=== PATIENT | male | born 1965 | race Caucasian/White ===

== ENCOUNTER → 2017-09-27 07:34 | Outpatient (CLI) | payer OTHER, SELFPAY ==
--- NOTE | 2017-09-27 07:00 | PET_ITS ---
EXAMINATION: FDG PET CT INDICATIONS: A 52-year-old male with reported history of pulmonary nodularity, mediastinal, thoracic perihilar adenopathy. COMPARISON EXAMINATION: CT of the chest report dated 09/13/17, CT of the abdomen and pelvis report dated 08/30/17. INDEX LESION SIZE SUV INTERPRETATION Multifocal superior-subcarinal mediastinum, bilateral thoracic perihilum 29.9 mm largest (frame 221) 11.4 (max) Fulfills quantitative criteria for viable neoplasm Mid abdominal retroperitoneum, aliza hepatis soft tissue adenopathy 14.2 mm largest (frame 166) 7.6 (max) Fulfills quantitative criteria for viable neoplasm Right supraclavicular region-right anterior neck 14.3 mm (frame 249) 5.5 Fulfills quantitative criteria for viable neoplasm TECHNIQUE: Following the intravenous administration of 13.5 mCi of F-18 deoxyglucose via the right hand, multiplanar image acquisitions of the neck, chest, abdomen and pelvis to level of mid thigh, obtained at one hour post radiopharmaceutical administration contemporaneously interpreted with the current CT of the neck, chest, abdomen and pelvis to level of mid thigh, dated 09/27/[address] of the chest report dated 09/13/17, CT of the abdomen and pelvis report dated 08/30/17 reveal: SERUM GLUCOSE LEVEL: 145 mg/dl. HEIGHT: 66 inches. WEIGHT: 169 lbs. FINDINGS: 1. Multifocal increased glucose concentration extends from the superior to subcarinal mediastinum, aorticopulmonary window and right-left thoracic perihilar regions generating a calculated maximum standard uptake value of 11.4. The maximal axial diameter of the largest individual hypermetabolic soft tissue density on review of CT of the thorax dated 09/27/17 is approximately 29.9 mm (transverse). Meticulous attention paid to the co-registered data sets of the thorax demonstrate apparent sparing of the mid-distal esophagus. 2. Increased glucose concentration is observed in the left mid abdominal retroperitoneum, periaortic in location corresponding to a soft tissue lymph node and right upper abdomen, aliza hepatis. The calculated maximum standard uptake value is 7.6. The maximal axial diameter of the corresponding hypermetabolic soft tissue density on review of CT of the abdomen dated 09/27/17 is 15.2 mm (AP). 3. An increase in glucose metabolism is demonstrated in the right anterior neck involving level IV, supraclavicular region. The calculated maximum standard uptake value is 5.5. The maximal axial diameter of the corresponding hypermetabolic soft tissue density on review of CT of the thorax dated 09/27/17 is 14.3 mm (AP). 4. Normal physiologic distribution of the radiopharmaceutical is apparent in the hepatic (2.6) and splenic parenchyma, both renal units, bladder and visualized intestinal tract. There is symmetric and preserved glucose metabolism noted in the visualized portion of the frontal, occipital, temporal and parietal lobes of the cerebral cortex, as well as cerebral hemispheres and basal ganglia. Diffuse intestinal tract activity is noted throughout all four quadrants of the abdominal-pelvic retroperitoneum, mesentery consistent with normal physiologic distribution of the radiopharmaceutical. Prominent glucose metabolism is defined in the bilateral lower hemipelvic mesentery contiguous to the distal ureters most consistent with physiologic distribution of the radiopharmaceutical. Pertinent CT findings are as follows. CHEST: There are no parenchymal densities-nodules demonstrated in the right-left hemithorax manifesting quantitatively significant, discernible increased glucose metabolism. Right-left axillary soft tissue densities with fatty hilus formation are non-glucose avid. ABDOMEN AND PELVIS: The gallbladder is surgically absent. Pelvic arterial calcification is observed. Fat-containing bilateral inguinal hernias are noted. Right-left inguinal soft tissue densities are ametabolic. Calcification is defined in the left kidney. Colonic diverticulosis is demonstrated. SKELETAL: Degenerative changes defined in the cervical, thoracic and lumbar spine demonstrate no evidence for glucose hypermetabolism. PET/PET/CT Tumor Base -Thigh Init IMPRESSION: 1. Increased glucose metabolism multifocally apparent in the superior-subcarinal mediastinum, bilateral thoracic perihilum fulfills quantitative criteria for viable neoplasm. Histopathologic investigation is recommended. (VanWu et al, Journal of Clinical Oncology 16:2142, 1998. Monet et al, Annals of Internal Medicine, 138:724, 2003). 2. Enhanced glucose concentration observed in the left mid abdominal retroperitoneum and right upper abdomen, aliaz hepatis corresponding to soft tissue lymph nodes, lymphadenopathy fulfills quantitative criteria for viable neoplasm. 3. The increase in glucose concentration visualized in the right anterior neck, supraclavicular region fulfills quantitative criteria for viable neoplasm. Electronic Signature Carlos Yadav D.O. Electronically Signed: Carlos Yadav DO at 22:59 EST Tel , Service support ,
== END ==
PROVIDERS: Family Provider Nurse Practitioner; PCP Nurse Practitioner; Visit Provider Nurse Practitioner Gerontology
DX: R91.8 Other nonspecific abnormal finding of lung field (principal)
CPT/HCPCS: 78815; 99211; A9552; A4216; G0463

== ENCOUNTER → 2017-09-27 17:11 | Outpatient (CLI) | payer OTHER, SELFPAY ==
--- NOTE | 2017-09-27 | CYSPIN_PTH ---
PATIENT: YOLY SLAUGHTER LOC: [facility] U#:[id number] AGE/SX: 59/M ROOM: RE09/27/[address]: Dr. Theodore Harris MD : 1965 BED: DIS: SPEC #: [id number] RECD: 09/27/17 15:30 STATUS: ULICES RENE #: [id number] YUMI: 09/27/17 00:[address]: Theodore Harris DEPT: CYTOLOGY RECD BY: Michael Arita ENTERED: 09/28/17 09:17 SP TYPE: CYSPIN FL OTHR DR: Louann Alejandre, INCLUSION MANAGER-C Tissues: Urine Procedures: Pap Stain (control) Special Stain Group II Cytospin Fluid HEADER OPERATION: Not noted PRE-OP DIAGNOSIS: Hematuria TISSUE SUBMITTED: Urine for cytology DIAGNOSIS CYTOLOGY Urine for cytology (cytospin): Negative for malignant cells. Acute inflammation. SJ:efra 09/29/17 CYTOLOGY STUDY Slides are reviewed. The specimen consists of neutrophils, red blood cells and a few benign urothelial cells. CYTOLOGY GROSS Received is 70 ml of clear gold fluid labeled with the patient's name and and designated per the requisition as urine. Submitted for cytology preparation. 09/28/17 TC:2 CPT: 79117
[2017-09-27 17:13] LABS: Cytology, Body Fluid / CSF SEE PATHOLOGY REPORT
== END ==
PROVIDERS: Family Provider Nurse Practitioner; PCP Nurse Practitioner; Visit Provider Urology
DX: R31.9 Hematuria, unspecified (principal)
CPT/HCPCS: 88108; 88313

== ENCOUNTER 2017-10-29 11:26 | Day surgery (SDC) | payer OTHER, SELFPAY ==
[2017-10-26 13:19] LABS: Absolute Lymphocyte Count 1.28 X10^3/ul (0.83-4.51); Absolute Neutrophil Count 3.3 X10^3/uL (2.0-7.7); Basophil# 0.02 X10^3/uL; Basophil% 0.4 % (0-1); Eosinophil# 0.11 X10^3/uL; Eosinophils% 2.1 % (0-5); Hematocrit 46.1 % (40-54); Hemoglobin 15.7 g/dl (13.0-16.5); Lymphocyte # 1.28 X10^3/ul (4.0); Mean Corp Hgb Conc 34.1 g/gl (32-36); Mean Corpuscular Hgb 31.8 pg (27.0-32.0); Mean Corpuscular Volume 93.3 fL (80-94); Mean Platelet Vol. 11.4 fl (6.2-12.0); Monocyte# 0.58 X10^3/uL; Monocyte% 10.9 % (0-10); Neutrophil # 3.31 X10^3/uL (2.7-7.7); POSITIVE COUNT NO; POSITIVE DIFFERENTIAL NO; POSITIVE MORPHOLOGY NO; Platelet Count 194 K/mm3 (150-450); RBC Distribution Width CV 12.8 % (11.6-14.6); RBC Distribution Width SD 42.8 fl (35.1-43.9); Red Blood Count 4.94 M/mm3 (4.6-6.2); White Blood Count 5.3 K/mm3 (4.4-11.0)
[2017-10-26 13:29] LABS: Prothrombin Time (Protime)PT. 13.6 SECONDS (11.7-14.9)
[2017-10-26 13:30] LABS: Partial Thromboplast Time 31.7 Seconds (24.1-36.2)
--- NOTE | 2017-10-29 | ASPS_PTH ---
PATIENT: YOLY SLAUGHTER LOC: [facility] U#:[id number] AGE/SX: 52/M ROOM: RE10/29/[address]: Dr. Yaya Kaur DO : 1965 BED: DIS: 10/29/2017 SPEC #: [id number] RECD: 11/01/17 05:42 STATUS: ULICES RENE #: [id number] YUMI: 10/29/17 00:[address]: Yaya Kaur DEPT: CYTOLOGY RECD BY: Carlos Short ENTERED: 11/01/17 05:44 SP TYPE: ASPIRATION OTHR DR: Louann Alejandre, EMPLOYMENT CONSULTANT-C Tissues: A - Lung, NOS B - Lung, NOS C - Lung, NOS D - Lung, NOS E - Lung, NOS F - Lung, NOS G - Lung, NOS H - Lung, NOS I - Lung, NOS J - Lung, NOS K - Lung, NOS M - Lung, NOS N - Lung, NOS O - Lung, NOS P - Lung, NOS Q - Lung, NOS L - Lung, NOS Procedures: Special Stain Group II Special Stain Group I Surgery Specimen Level IV AFB Stain (control) GMS Stain (control) Diff Quik Stain (control) Cell Block Cytology Other HEADER OPERATION: Bronchoscopy with endoscopic endobronchial ultrasound (EBUS), transbronchial needle aspiration PRE-OP DIAGNOSIS: Mediastinal and hilar lymphadenopathy TISSUE SUBMITTED: A-F ? EBUS, FNA, site 7, G-H ? EBUS, FNA, site 4R, I & J ? EBUS, FNA, site?11L, K-M ? EBUS, FNA site?10R, N ? TBNA site 7, O - TBNA site 4R, P - TBNA site 11L, Q - TBNA site 10R DIAGNOSIS CYTOLOGY A. EBUS, FNA, site 7, aspiration #1: Adequate for evaluation. Negative for malignant cells or granulomas. Lymphocytes are present. B. EBUS, FNA, site 7, aspiration #2: Adequate for evaluation. Negative for malignant cells or granulomas. Lymphocytes and respiratory cells present. C. EBUS, FNA, site 7, aspiration #3: Only a few lymphocytes are present. Negative for malignant cells. D. EBUS, FNA, site 7, aspiration #4: Only a few lymphocytes are present. Negative for malignant cells. E. EBUS, FNA, site 7, aspiration #5: Adequate for evaluation. Negative for malignant cells or granulomas. Lymphocytes are present. F. EBUS, FNA, site 7, aspiration #6: Only a few lymphocytes are present. Negative for malignant cells. G. EBUS, FNA, site 4R, aspiration #7: Nondiagnostic specimen. Rare respiratory epithelial cells and lymphocytes are present. H. EBUS, FNA, site 4R, aspiration #8: Nondiagnostic specimen. Rare respiratory epithelial cells and lymphocytes are present. I. EBUS, FNA, site 11L, aspiration #9: Adequate for evaluation. Negative for malignant cells or granuloma. Respiratory epithelial cells and lymphocytes are present. J. EBUS, FNA, site 11L, aspiration #10: Nondiagnostic specimen. Rare respiratory epithelial cells and lymphocytes are present. K. EBUS, FNA, site 10R, aspiration #11: Nondiagnostic specimen. Rare respiratory epithelial cells and lymphocytes are present. L. EBUS, FNA, site 10R, aspiration #12: Nondiagnostic specimen. Rare lymphocytes are noted. M. EBUS, FNA, site 10R, aspiration #13: Nondiagnostic specimen. Respiratory epithelial cells and rare lymphocytes are noted. N. TBNA, site 7, fluid (cell block): Negative for malignant cells or lymphoma. Flow cytometry shows no evidence of B-cell or T-cell lymphoma. See cytology study. O. TBNA, site 4R, fluid (cell block): Negative for malignant cells. Flow cytometry shows no phenotypic evidence of lymphoma. See cytology study. P. TBNA, site 11L, fluid (cell block): Focal area suggestive of granuloma formation. Special stains for acid fast bacilli and fungi are negative for organisms; matched controls are appropriate. Flow cytometry shows no evidence of B-cell or T-cell lymphoma. See cytology study. Q. TBNA, site 10R, fluid (cell block): Negative for malignant cells. Flow cytometry shows no evidence of B-cell or T-cell lymphoma. See cytology study. SJ:efra 11/01/17 COMMENT The specimen is evaluated at the time of procedure by Dr. Contreras. Immediate evaluation: A. EBUS, FNA, site 7, aspiration #1: Negative for malignancy. Lymphocytes and blood present. B. EBUS, FNA, site 7, aspiration #2: Nondiagnostic. Reactive bronchial cells and blood. C. EBUS, FNA, site 7, aspiration #3: Nondiagnostic. No lymphocytes. Blood present. D. EBUS, FNA, site 7, aspiration #4: Nondiagnostic. No lymphocytes. Only blood present. E. EBUS, FNA, site 7, aspiration #5: Negative for malignancy. Few lymphocytes present. F. EBUS, FNA, site 7, aspiration #6: Nondiagnostic. No lymphocytes. Blood present. G. EBUS, FNA, site 4R, aspiration #7: Nondiagnostic. No lymphocytes. Blood present. H. EBUS, FNA, site 4R, aspiration #8: Nondiagnostic. No lymphocytes. Reactive bronchial cells I. EBUS, FNA, site 11L, aspiration #9: Nondiagnostic. Reactive bronchial and WBC from blood. J. EBUS, FNA, site 11L, aspiration #10: Nondiagnostic. No lymphocytes. Blood only. K. EBUS, FNA, site 10R, aspiration #11: Nondiagnostic. No lymphocytes. Few reactive bronchial cells. L. EBUS, FNA, site 10R, aspiration #12: Nondiagnostic. No lymphocytes. M. EBUS, FNA, site 10R, aspiration #13: Nondiagnostic. No lymphocytes. Blood. Case has been reviewed in consultation with Dr. Chatterjee who concurs with the above diagnosis. IDC:AM CYTOLOGY STUDY Slides are reviewed. N. The specimen consists only of a few small lymphocytes. O. The specimen only shows blood. P. The specimen consists of lymphocytes and focal area suggestive of granuloma formation. Q. The specimen predominantly consists of blood and one minute fragment of cartilage. CYTOLOGY GROSS A ? Received labeled with the patient?s name, and designated ?EBUS, FNA, site 7, aspiration #1.? The specimen consists of two smears submitted for immediate cytologic evaluation (wet read). B - Received labeled with the patient?s name, and designated ?EBUS, FNA, site 7, aspiration #2.? The specimen consists of two smears submitted for immediate cytologic evaluation (wet read). C - Received labeled with the patient?s name, and designated ?EBUS, FNA, site 7, aspiration #3.? The specimen consists of two smears submitted for immediate cytologic evaluation (wet read). D - Received labeled with the patient?s name, and designated ?EBUS, FNA, site 7, aspiration #4.? The specimen consists of two smears submitted for immediate cytologic evaluation (wet read). E - Received labeled with the patient?s name, and designated ?EBUS, FNA, site 7, aspiration #5.? The specimen consists of two smears submitted for immediate cytologic evaluation (wet read). F - Received labeled with the patient?s name, and designated ?EBUS, FNA, site 7, aspiration #6.? The specimen consists of two smears submitted for immediate cytologic evaluation (wet read). G - Received labeled with the patient?s name, and designated ?EBUS, FNA, site 4R, aspiration #7.? The specimen consists of two smears submitted for immediate cytologic evaluation (wet read). H - Received labeled with the patient?s name, and designated ?EBUS, FNA, site 4R, aspiration #8.? The specimen consists of two smears submitted for immediate cytologic evaluation (wet read). I - Received labeled with the patient?s name, and designated ?EBUS, FNA, site 11L, aspiration #9.? The specimen consists of two smears submitted for immediate cytologic evaluation (wet read). J - Received labeled with the patient?s name, and designated ?EBUS, FNA, site 11L, aspiration #10.? The specimen consists of two smears submitted for immediate cytologic evaluation (wet read). K - Received labeled with the patient?s name, and designated ?EBUS, FNA, site 10R, aspiration #11.? The specimen consists of two smears submitted for immediate cytologic evaluation (wet read). L - Received labeled with the patient?s name, and designated ?EBUS, FNA, site 10R, aspiration #12.? The specimen consists of two smears submitted for immediate cytologic evaluation (wet read). M - Received labeled with the patient?s name, and designated ?EBUS, FNA, site 10R, aspiration #13.? The specimen consists of two smears submitted for immediate cytologic evaluation (wet read). N ? Received in RPMI and labeled with the patient?s name, and designated ?TBNA, site 7.? Submitted for cytology preparation including cell block. A portion of the specimen is also submitted for flow cytometry. 0 - Received in RPMI and labeled with the patient?s name, and designated ?TBNA, site 4R.? Submitted for cytology preparation including cell block. A portion of the specimen is also submitted for flow cytometry. P - Received in RPMI and labeled with the patient?s name, and designated ?TBNA, site 11L.? Submitted for cytology preparation including cell block. A portion of the specimen is also submitted for flow cytometry. Q - Received in RPMI and labeled with the patient?s name, and designated ?TBNA, site 10R.? Submitted for cytology preparation including cell block. A portion of the specimen is also submitted for flow cytometry. / FA:efra 10/29/17 TC:5 CPT: 62454 x4, 18853 x4, 31078 x9, 40086 x4, 96212 x2
[2017-10-29 11:56] VITALS: BP 120/88; PULSE 72; RESP 16; TEMP 36.6; O2SAT 98; BMI 27.3
[2017-10-29 12:16] LABS: Bedside Glucose 140 mg/dL (70-110)
--- NOTE | 2017-10-29 13:40 | PCM.OP.BLANK ---
Operative Report Date of Procedure: 10/29/17 BRONCHOSCOPY (EBUS) PROCEDURE REPORT DATE OF SERVICE: October 29, 2017 BRIEF HISTORY: The patient is a 52-year-old male who follows with Dr. Fallon on an outpatient basis who is referred to co for evaluation of mediastinal and hilar lymphadenopathy. Contrasted chest CT completed in August 2017 revealed multiple bilateral pulmonary nodules and extensive mediastinal and hilar lymphadenopathy. Subsequent PET scan was performed and revealed hypermetabolic areas in the aforementioned regions. Therefore, it was determined that the patient should undergo mediastinal lymph node sampling for evaluation of potential malignancy, granulomatous disease and/or occult infectious process. PROCEDURE: Bronchoscopy with endoscopic endobronchial ultrasound (EBUS), transbronchial needle aspiration INDICATION: Mediastinal and hilar lymphadenopathy PHYSICIAN: Yaya Kaur DO ANESTHETIC: This procedure was completed under the supervision of anesthesia. Please refer to their documentation accordingly. COMPLICATIONS: No immediate complications noted. DESCRIPTION OF PROCEDURE: A history and physical has been performed. Please see outpatient pulmonary clinic note. The patient's medications and allergies have been reviewed. The risks and benefits of the procedure and sedation options and risks were discussed with the patient at length. All questions were answered and informed consent was obtained. The patient's identification and proposed procedure were verified prior to the procedure by the physician. ASA GRADE ASSESSMENT: II After obtaining informed consent, the bronchoscope was introduced through the mouth, via laryngeal mask airway and advanced to the tracheal bronchial tree bilaterally. The procedure was accomplished without difficulty. The patient tolerated the procedure well. FINDINGS: The visualized oropharynx appears normal. The vocal cords appeared normal and moved normally with breathing. The subglottic space is normal. The trachea was of normal caliber. The maureen is sharp. The tracheal bronchial trees of the left and right lungs were examined to at least the first subsegmental level. Bronchial mucosa and anatomy was noted to be normal. Once the airway inspection was completed, the standard bronchoscope was withdrawn and a convex probe endobronchial ultrasound (EBUS) bronchoscope was inserted through the same route. The endobronchial ultrasound endoscope was then utilized to systematically examine the superior/inferior mediastinal and hilar lymph nodes to assist with fine-needle aspiration. In total, 13 transbronchial needle aspirations were completed at 4 different lymph node stations. Transbronchial needle aspiration was performed at lymph node station 7 (Subcarina) using an Olympus EBUS-TBNA 19-gauge needle and sent for routine cytology. The procedure was guided by ultrasound. 6 samples were obtained. Transbronchial needle aspiration was then performed at lymph node station 4R (Right Paratracheal) using an Olympus EBUS-TBNA 19-gauge needle and sent for routine cytology. The procedure was guided by ultrasound. 2 samples were obtained. Transbronchial needle aspiration was then performed at lymph node station 11L (Left Hilar) using an Olympus EBUS-TBNA 19-gauge needle and sent for routine cytology. The procedure was guided by ultrasound. 2 samples were obtained. Transbronchial needle aspiration was then performed at lymph node station 10R (Right Hilar) using an Olympus EBUS-TBNA 19-gauge needle and sent for routine cytology. The procedure was guided by ultrasound. 3 samples were obtained. Rapid on-site evaluation (CORRY): Preliminary cytology was inconclusive. Final pathology results are pending. Following this, the EBUS endoscope was subsequently withdrawn from the patient's airway through the LMA. A conventional bronchoscope was then reinserted into the patient's airway, at which time, any retained secretions and/or blood was cleared. The bronchoscope was then withdrawn without complication. The patient was then transferred to the PACU, where they recovered in the usual fashion. IMPRESSION: 1. Extensive mediastinal and hilar lymphadenopathy 2. Transbronchial needle aspiration was completed at lymph node station 7 (subcarinal), 4R (right paratracheal), 11L (left hilar), 10R (right hilar) 3. Samples will be sent for cytology, flow cytometry, AFB and cultures. RECOMMENDATIONS: 1. Await finalized pathology results 2. Follow up with the pulmonary medicine clinic as scheduled Code Visit 9xxxx: Other Procedure See Report
--- NOTE | 2017-10-29 13:45 | OP.PCM_ITS ---
Operative Report Date of Procedure: 10/29/17 BRONCHOSCOPY (EBUS) PROCEDURE REPORT DATE OF SERVICE: October 29, 2017 BRIEF HISTORY: The patient is a 52-year-old male who follows with Dr. Fallon on an outpatient basis who is referred to [place] for evaluation of mediastinal and hilar lymphadenopathy. Contrasted chest CT completed in August 2017 revealed multiple bilateral pulmonary nodules and extensive mediastinal and hilar lymphadenopathy. Subsequent PET scan was performed and revealed hypermetabolic areas in the aforementioned regions. Therefore, it was determined that the patient should undergo mediastinal lymph node sampling for evaluation of potential malignancy, granulomatous disease and/or occult infectious process. PROCEDURE: Bronchoscopy with endoscopic endobronchial ultrasound (EBUS), transbronchial needle aspiration INDICATION: Mediastinal and hilar lymphadenopathy PHYSICIAN: Yaya Kaur DO ANESTHETIC: This procedure was completed under the supervision of anesthesia. Please refer to their documentation accordingly. COMPLICATIONS: No immediate complications noted. DESCRIPTION OF PROCEDURE: A history and physical has been performed. Please see outpatient pulmonary clinic note. The patient's medications and allergies have been reviewed. The risks and benefits of the procedure and sedation options and risks were discussed with the patient at length. All questions were answered and informed consent was obtained. The patient's identification and proposed procedure were verified prior to the procedure by the physician. ASA GRADE ASSESSMENT: II After obtaining informed consent, the bronchoscope was introduced through the mouth, via laryngeal mask airway and advanced to the tracheal bronchial tree bilaterally. The procedure was accomplished without difficulty. The patient tolerated the procedure well. FINDINGS: The visualized oropharynx appears normal. The vocal cords appeared normal and moved normally with breathing. The subglottic space is normal. The trachea was of normal caliber. The maureen is sharp. The tracheal bronchial trees of the left and right lungs were examined to at least the first subsegmental level. Bronchial mucosa and anatomy was noted to be normal. Once the airway inspection was completed, the standard bronchoscope was withdrawn and a convex probe endobronchial ultrasound (EBUS) bronchoscope was inserted through the same route. The endobronchial ultrasound endoscope was then utilized to systematically examine the superior/inferior mediastinal and hilar lymph nodes to assist with fine-needle aspiration. In total, 13 transbronchial needle aspirations were completed at 4 different lymph node stations. Transbronchial needle aspiration was performed at lymph node station 7 ( Subcarina) using an Olympus EBUS-TBNA 19-gauge needle and sent for routine cytology. The procedure was guided by ultrasound. 6 samples were obtained. Transbronchial needle aspiration was then performed at lymph node station 4R ( Right Paratracheal) using an Olympus EBUS-TBNA 19-gauge needle and sent for routine cytology. The procedure was guided by ultrasound. 2 samples were obtained. Transbronchial needle aspiration was then performed at lymph node station 11L ( Left Hilar) using an Olympus EBUS-TBNA 19-gauge needle and sent for routine cytology. The procedure was guided by ultrasound. 2 samples were obtained. Transbronchial needle aspiration was then performed at lymph node station 10R ( Right Hilar) using an Olympus EBUS-TBNA 19-gauge needle and sent for routine cytology. The procedure was guided by ultrasound. 3 samples were obtained. Rapid on-site evaluation (CORRY): Preliminary cytology was inconclusive. Final pathology results are pending. Following this, the EBUS endoscope was subsequently withdrawn from the patient' s airway through the LMA. A conventional bronchoscope was then reinserted into the patient's airway, at which time, any retained secretions and/or blood was cleared. The bronchoscope was then withdrawn without complication. The patient was then transferred to the PACU, where they recovered in the usual fashion. IMPRESSION: 1. Extensive mediastinal and hilar lymphadenopathy 2. Transbronchial needle aspiration was completed at lymph node station 7 ( subcarinal), 4R (right paratracheal), 11L (left hilar), 10R (right hilar) 3. Samples will be sent for cytology, flow cytometry, AFB and cultures. RECOMMENDATIONS: 1. Await finalized pathology results 2. Follow up with the pulmonary medicine clinic as scheduled Code Visit 9xxxx: Other Procedure See Report
[2017-10-29 13:47] VITALS: BP 120/88; BP 144/91; PULSE 86; RESP 18; TEMP 36.2; O2SAT 98
[2017-10-29 14:00] VITALS: BP 120/88; BP 148/91; PULSE 74; RESP 16; O2SAT 97
[2017-10-29 14:15] VITALS: BP 120/88; BP 122/91; PULSE 71; RESP 16; O2SAT 95
[2017-10-29 14:25] VITALS: BP 120/88; BP 132/94; PULSE 75; RESP 16; TEMP 36.2; O2SAT 100
[2017-10-29 14:59] VITALS: BP 120/88
== END 2017-10-29 15:01 | disposition home or self-care (01) ==
LOC: EN 11:26 → AC 11:27
PROVIDERS: Internal Medicine Critical Care Medicine; Family Provider Nurse Practitioner; PCP Nurse Practitioner; Visit Provider Internal Medicine Critical Care Medicine
PROC: BB4BZZZ Ultrasonography of Pleura (ICD-10-PCS; CPT 31645; principal; 2017-10-29 12:00)
DX: R59.0 Localized enlarged lymph nodes (principal); E11.9 Type 2 diabetes mellitus without complications; Z87.19 Personal history of other diseases of the digestive system; Z87.442 Personal history of urinary calculi; Z87.438 Personal history of other diseases of male genital organs; Z86.39 Personal history of other endocrine, nutritional and metabolic disease; F12.90 Cannabis use, unspecified, uncomplicated; Z90.49 Acquired absence of other specified parts of digestive tract; Z79.84 Long term (current) use of oral hypoglycemic drugs
CPT/HCPCS: 31645; 31653; 36415; 82962; 85025; 85610; 85730; 88161; 88305; 88312; 88313; J3010; J7120; A4216; J2405

== ENCOUNTER → 2018-01-24 06:48 | Outpatient (CLI) | payer OTHER, SELFPAY ==
--- NOTE | 2018-01-24 06:48 | DT_ITS ---
This patient was seen during an EMR downtime January 24, 2018 - January 31, 2018. This patient may have a combination of paper and electronic documentation or all paper documentation. All documentation is viewable within the e-chart portion of [employer] for each patient visit.
--- NOTE | 2018-01-24 12:30 | CT_ITS ---
STUDY: CT CHEST WITH CONTRAST REASON FOR EXAM: Male, 52 years old. History of sarcoidosis and diabetes. RADIATION DOSAGE (If Supplied By Facility): CTDIvol = ( 14.15 ) mGy, DLP = ( 523.85 ) mGycm TECHNIQUE: Transaxial imaging was performed following intravenous administration of 100ml ml of Isovue 300 contrast material. Individualized dose optimization techniques were used for this CT. COMPARISON: 09/28/2017. FINDINGS: Again are multiple small pulmonary nodules bilaterally, the largest measures about 6 mm unchanged in size and number since previous examination. There is mild stranding/scarring in the right upper lobe. There is no demonstrated pleural abnormality. Normal heart and pericardium. Again are enlarged nodes in the aortopulmonic window, right paratracheal region, anterior mediastinum and subcarinal regions unchanged since the prior examination. Enlarged bilateral hilar nodes are again seen. Normal enhanced pulmonary arteries. Normal aorta arch and descending thoracic aorta. There are mild degenerative changes in the thoracic spine. There is no demonstrated abnormality of the visualized upper abdomen. CT/Chest WITH Contrast IMPRESSION: Multiple small pulmonary nodules unchanged in size or number since the previous examination. Persistent mediastinal and bilateral hilar adenopathy. Mild scarring in the right upper lobe. No new infiltrate is seen. Electronically Signed: Corey Fofana MD at 15:57 EDT Tel , Service support ,
== END ==
PROVIDERS: Family Provider Nurse Practitioner; PCP Nurse Practitioner; Visit Provider Internal Medicine Critical Care Medicine
DX: D86.0 Sarcoidosis of lung (principal); R59.0 Localized enlarged lymph nodes
CPT/HCPCS: 71260; Q9967

== ENCOUNTER → 2018-03-03 06:35 | Outpatient (CLI) | payer OTHER, SELFPAY ==
--- NOTE | 2018-03-03 11:30 | PFTCOMP ---
COMPLETE PULMONARY FUNCTION TEST INTERPRETATION Brief HPI: Patient is a 52 year old male, currently under the care of myself, who presents to [facility] for complete pulmonary function tests secondary to diagnosis of sarcoidosis. Respiratory therapist reports good effort and reproducible results. Interpretation: Forced expiration spirometry shows no large airways obstructive ventilatory defect with an FEV1 of 73% predicted. There is no significant bronchodilator response by ATS criteria. Spirograms are of good quality and plateau normally. The respiratory flow volume loop shows a normal pattern. Lung volumes by body plethysmography show a decreased total lung capacity at 4.81 L, 82% predicted. All other lung volumes are reduced symmetrically. Diffusion capacity by carbon monoxide is normal at 92% predicted. The airway resistance is elevated. No previous pulmonary function tests were available for review. Impression: Mild restrictive ventilatory defect with preserved diffusing capacity.
--- NOTE | 2018-03-03 11:33 | PFTCOMP_ITS ---
COMPLETE PULMONARY FUNCTION TEST INTERPRETATION Brief HPI: Patient is a 52 year old male, currently under the care of myself, who presents to [facility] for complete pulmonary function tests secondary to diagnosis of sarcoidosis. Respiratory therapist reports good effort and reproducible results. Interpretation: Forced expiration spirometry shows no large airways obstructive ventilatory defect with an FEV1 of 73% predicted. There is no significant bronchodilator response by ATS criteria. Spirograms are of good quality and plateau normally. The respiratory flow volume loop shows a normal pattern. Lung volumes by body plethysmography show a decreased total lung capacity at 4.81 L, 82% predicted. All other lung volumes are reduced symmetrically. Diffusion capacity by carbon monoxide is normal at 92% predicted. The airway resistance is elevated. No previous pulmonary function tests were available for review. Impression: Mild restrictive ventilatory defect with preserved diffusing capacity.
== END ==
PROVIDERS: Family Provider Nurse Practitioner; PCP Nurse Practitioner; Visit Provider Internal Medicine Critical Care Medicine
DX: D86.0 Sarcoidosis of lung (principal)
CPT/HCPCS: 94060; 94726; 94729

== ENCOUNTER → 2018-03-14 09:32 | Outpatient (CLI) | payer OTHER, SELFPAY ==
--- NOTE | 2018-03-14 09:37 | MRI_ITS ---
STUDY: MRI BRAIN WITH AND WITHOUT CONTRAST REASON FOR EXAM: Male, 52 years old. left hearing loss with bilat tinnitus Lt Tgt; Rt, no pain , no dizziness TECHNIQUE: Standardized multiplanar fat and water weighted pulse sequences were obtained. 7 ml of Gadavist contrast material was administered intravenously for the contrast portion of the examination. COMPARISON: None. FINDINGS: Normal size of the ventricles and extra-axial spaces for the patient's age. Normal white matter tracts of the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 brain. Normal bilateral basal ganglia. Normal thalami. There is no extra-axial fluid accumulation. Normal flow voids within the major intracranial circulation suggesting patency by spin echo criteria. Normal venous enhancement. There is enhancing right frontal extra-axial mass measures 3.3 x 3.5 x 1.2 cm is most likely a meningioma. 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 Normal sella turcica, pituitary gland, infundibular stalk, optic chiasm and hypothalamus. Normal tectal plate and pineal gland. Normal midbrain, poly and medulla. Normal cerebellum. Normal basal cisterns. Normal bilateral temporal bones. Normal bilateral internal auditory canals. No demonstrated orbital abnormality, within the constraints of a routine brain study. Normal visualized paranasal sinuses. Normal calvarium and skull base. Normal visualized soft tissue structures. Normal visualized upper cervical spine. MRI/Brain W/WO Contrast IMPRESSION: There is enhancing right frontal extra-axial mass measures 3.3 x 3.5 x 1.2 cm is most likely a meningioma. Electronically Signed: Rosario Choudhury MD at 14:01 EDT Tel , Service support ,
== END ==
PROVIDERS: Family Provider Nurse Practitioner; PCP Nurse Practitioner; Visit Provider Otolaryngology
DX: H91.92 Unspecified hearing loss, left ear (principal)
CPT/HCPCS: 70553; A9585

== ENCOUNTER 2018-06-03 17:11 | Emergency (ER) | payer OTHER, SELFPAY ==
[2018-06-03 17:19] VITALS: BP 137/101; PULSE 74; RESP 18; TEMP 37.1; O2SAT 99; BMI 26.7
--- NOTE | 2018-06-03 17:52 | RAD_ITS ---
STUDY: X-RAY - RIGHT HAND REASON FOR EXAM: Male, 52 years old. Bit by dog TECHNIQUE: 3 view(s) of the hand. COMPARISON: None. FINDINGS: There is joint space narrowing of the radiocarpal articulation consistent with degenerative arthrosis. Normal distal radioulnar joint. Normal visualized carpal bones. Normal carpal articulations Normal carpometacarpal articulation of the thumb. Normal second through fifth carpometacarpal joints. Normal metacarpi. Normal metacarpophalangeal joint of the thumb. Normal interphalangeal joint of the thumb. Normal proximal and distal phalanges of the thumb. Normal metacarpophalangeal joints of the second through fifth fingers. Normal proximal and distal interphalangeal joints of the second through fifth fingers. Normal phalanges of the second through fifth fingers. There is a 0.8 mm opacity projecting over the soft tissues of the distal fifth digit lateral to the distal phalanx. RAD/Hand Min 3 Views IMPRESSION: No acute osseous injury. Indeterminate 0.8 mm opacity projecting over the soft tissues of the distal fifth digit may reflect a retained foreign body. Electronically Signed: Carol Mott MD at 19:05 EDT Tel , Service support ,
[2018-06-03] MEDS: Amox/Clavulanate 875 MG Tablet PO (17:59)
--- NOTE | 2018-06-03 18:12 | RAD_ITS ---
STUDY: X-RAY - RIGHT RADIUS AND ULNA REASON FOR EXAM: Male, 52 years old. Multiple puncture wounds of the right forearm secondary to dog bite. TECHNIQUE: 2 view(s) of the forearm. COMPARISON: None. FINDINGS: Soft tissue injury without foreign body. Normal visualized radius. Normal visualized ulna. Normal wrist and elbow. RAD/Forearm 2 Views IMPRESSION: Soft tissue injury without foreign body, underlying bone or joint abnormality. Electronically Signed: Sarah Sow MD at 18:31 EDT , Service support ,
--- NOTE | 2018-06-03 19:18 | ED.DCSUM_ITS ---
- ER Visit Summary Date of Service: 06/03/18 Chief Complaint: Dog bite History of Present Illness: The patient is a 52 M who comes with multiple dog bites from his dog. Patient states he was cutting his dogs nails and the nail got caught in a clipper. The dog bit the patient on the right hand and right fo rearm. He is right-hand dominant. Physical Examination: Vital signs unremarkable. Patient sitting upright in bed no acute distress. Head neck examination grossly unremarkable other than a healing surgical wound to the right frontal scalp. Heart is regular rate and rhythm. Lung sounds are clear. Abdomen is soft nontender. Right forearm and hand reveals multiple abrasions and superficial lacerations. CT sheet for details. Patient has full strength and sensation with good range of motion. Test Results: Right forearm x-rays reveal soft tissue injury without bony injury. Right hand x-ray reveals no osseous injury. There is an indeterminate 0.8 mm opacity projecting over the distal phalanx soft tissues. This may be a foreign body. Emergency Department Course and Treatment: Wounds were cleansed and dressed. Patient is treated with Augmentin. I went back and reevaluated the distal phalanx of the fifth finger. Patient does have a 2 mm superficial lack near this area. I discussed with the patient opening this area to further explore. He would prefer to take the antibiotics and watch it. He will return if symptoms worsen. Treatment Plan: [] Disposition: Discharge Impression: Dog bites to right hand/forearm This note was generated with [employer] dictation software. It may contain incorrect words, spelling, and punctuation that were not noted in review of the chart prior to signing ED Disposition - Plan for ED Patient: Chief Complaint: Bite Referrals: Louann Alejandre, [employer] [Primary Care Provider] -
--- NOTE | 2018-06-03 19:18 | ED.DEP ---
ED Disposition - Plan for ED Patient: Disposition: Home or Assisted Living Chief Complaint: Bite Instructions: ED Bite Dog Prescriptions: Amox/Clavulanate Tablet [Augmentin Tablet] 875 mg PO Q12H #20 tablet Referrals: Louann Alejandre NP-C [Primary Care Provider] - 5-7 Days
[2018-06-03 19:24] VITALS: BP 156/85; PULSE 77; RESP 16; O2SAT 96
== END 2018-06-03 19:24 | disposition home or self-care (01) ==
PROVIDERS: Emergency Provider Emergency Medicine; Family Provider Nurse Practitioner; PCP Nurse Practitioner
DX: S60.571A Other superficial bite of hand of right hand, initial encounter (principal); S50.871A Other superficial bite of right forearm, initial encounter; K21.9 Gastro-esophageal reflux disease without esophagitis; E11.9 Type 2 diabetes mellitus without complications; D86.9 Sarcoidosis, unspecified; Z87.442 Personal history of urinary calculi; Z79.84 Long term (current) use of oral hypoglycemic drugs; Z79.891 Long term (current) use of opiate analgesic; Z79.899 Other long term (current) drug therapy; W54.0XXA Bitten by dog, initial encounter; Y93.89 Activity, other specified; Y92.009 Unspecified place in unspecified non-institutional (private) residence as the place of occurrence of the external cause; Y99.8 Other external cause status
CPT/HCPCS: 73090; 73130; 99283

== ENCOUNTER → 2018-06-06 10:40 | Outpatient (CLI) | payer OTHER, SELFPAY ==
--- NOTE | 2018-06-06 10:43 | RAD_ITS ---
STUDY: X-RAY - LUMBAR SPINE REASON FOR EXAM: Male, 52 years old. Low back pain with leg pain TECHNIQUE: 5 view(s) of the lumbar spine were obtained. COMPARISON: None FINDINGS: Normal lumbar lordosis. There is no substantial scoliosis. There is a normal alignment of the vertebrae. Normal vertebral bodies and endplates. Normal disc space heights. The soft tissue structures are unremarkable. RAD/L/S Spine Min 4 Views IMPRESSION: Normal x-ray examination of the lumbar spine. Electronically Signed: Jose Alcantara DO at 9:54 EDT Tel , Service support ,
== END ==
PROVIDERS: Family Provider Nurse Practitioner; PCP Nurse Practitioner; Referring Provider Nurse Practitioner Gerontology; Visit Provider Nurse Practitioner Gerontology
DX: M79.604 Pain in right leg (principal); M79.605 Pain in left leg
CPT/HCPCS: 72110

== ENCOUNTER → 2018-08-18 13:54 | Outpatient (CLI) | payer OTHER, SELFPAY ==
--- NOTE | 2018-08-18 14:05 | MRI_ITS ---
STUDY: MRI BRAIN WITH AND WITHOUT CONTRAST REASON FOR EXAM: Male, 52 years old. Brain tumor TECHNIQUE: Standardized multiplanar fat and water weighted pulse sequences were obtained. 8 ml of Gadavist contrast material was administered intravenously for the contrast portion of the examination. COMPARISON: 03/14/2018 FINDINGS: Normal size of the ventricles and extra-axial spaces for the patient's age. Normal white matter tracts of the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 brain. Normal bilateral basal ganglia. Normal thalami. Interval resection of right frontal meningioma. Normal flow voids within the major intracranial circulation suggesting patency by spin echo criteria. Prominent dural enhancement is noted anteriorly and laterally on the right which is likely reactive in nature. A trace subdural fluid collection is present anteriorly on the right that measures 3 mm without significant local mass effect. No associated visible restricted diffusion. This is most likely a postoperative effusion. 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 Normal sella turcica, pituitary gland, infundibular stalk, optic chiasm and hypothalamus. Normal tectal plate and pineal gland. Normal midbrain, poly and medulla. Normal cerebellum. Normal basal cisterns. Normal bilateral temporal bones. Normal bilateral internal auditory canals. Bilateral lens replacements. Normal visualized paranasal sinuses. Right frontal craniotomy. Normal visualized soft tissue structures. Normal visualized upper cervical spine. MRI/Brain W/WO Contrast IMPRESSION: Interval resection of right frontal meningioma. Reactive prominent right frontal dural enhancement. Small right frontal dural fluid collection without restricted diffusion, likely related to postoperative effusion. Short interval follow-up is recommended to ensure stability or resolution, however. No evidence of acute infarct. Electronically Signed: Huy Meyers MD at 6:38 EST Tel , Service support ,
== END ==
PROVIDERS: Family Provider Nurse Practitioner; PCP Nurse Practitioner; Referring Provider Psychiatry & Neurology Neurology; Visit Provider Psychiatry & Neurology Neurology
DX: D43.0 Neoplasm of uncertain behavior of brain,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 (principal)
CPT/HCPCS: 70553; A9585

== ENCOUNTER 2018-09-19 10:05 | Outpatient (RCR) | payer OTHER, SELFPAY ==
[2018-09-12 10:25] LABS: Creatinine, Serum 0.78 mg/dL (0.70-1.30); EST Glomerular Filtration Rate 111 mL/min (>60); Est Glom Filt Rate - Afr Amer 134 mL/min (>60)
[2018-09-12 10:26] LABS: Absolute Lymphocyte Count 1.49 X10^3/ul (0.83-4.51); Absolute Neutrophil Count 5.6 X10^3/uL (2.0-7.7); Basophil# 0.05 X10^3/uL; Basophil% 0.6 % (0-1); Eosinophil# 0.38 X10^3/uL; Eosinophils% 4.5 % (0-5); Hematocrit 45.9 % (40-54); Hemoglobin 15.5 g/dl (13.0-16.5); Lymphocyte # 1.49 X10^3/ul (4.0); Lymphocyte % 17.5 % (19-41); Mean Corp Hgb Conc 33.8 g/gl (32-36); Mean Corpuscular Volume 88.8 fL (80-94); Mean Platelet Vol. 11.1 fl (6.2-12.0); Monocyte# 0.89 X10^3/uL; Monocyte% 10.4 % (0-10); Neutrophil # 5.57 X10^3/uL (2.7-7.7); Neutrophil % 65.2 % (47-70); Platelet Count 251 K/mm3 (150-450); RBC Distribution Width CV 12.7 % (11.6-14.6); RBC Distribution Width SD 40.6 fl (35.1-43.9); Red Blood Count 5.17 M/mm3 (4.6-6.2); White Blood Count 8.5 K/mm3 (4.4-11.0)
[2018-09-12 10:27] LABS: POSITIVE COUNT NO; POSITIVE DIFFERENTIAL NO; POSITIVE MORPHOLOGY NO
[2018-09-19 12:16] LABS: Creatinine, Serum 0.82 mg/dL (0.70-1.30); EST Glomerular Filtration Rate 105 mL/min (>60); Est Glom Filt Rate - Afr Amer 127 mL/min (>60)
[2018-09-19 14:24] LABS: Absolute Lymphocyte Count 1.82 X10^3/ul (0.83-4.51); Basophil# 0.09 X10^3/uL; Basophil% 1.1 % (0-1); Eosinophil# 0.29 X10^3/uL; Eosinophils% 3.6 % (0-5); Lymphocyte # 1.82 X10^3/ul (4.0); Lymphocyte % 22.4 % (19-41); Mean Corp Hgb Conc 34.1 g/gl (32-36); Mean Corpuscular Hgb 30.5 pg (27.0-32.0); Mean Corpuscular Volume 89.4 fL (80-94); Mean Platelet Vol. 11.7 fl (6.2-12.0); Monocyte# 0.82 X10^3/uL; Monocyte% 10.1 % (0-10); Neutrophil % 61.6 % (47-70); POSITIVE COUNT NO; POSITIVE DIFFERENTIAL NO; POSITIVE MORPHOLOGY NO; Platelet Count 201 K/mm3 (150-450); RBC Distribution Width CV 12.8 % (11.6-14.6); RBC Distribution Width SD 41.4 fl (35.1-43.9); Red Blood Count 4.92 M/mm3 (4.6-6.2); White Blood Count 8.1 K/mm3 (4.4-11.0)
--- OUTSIDE RECORDS SUMMARY | 2018-11-14 20:16 | XMS RPT_ITS | Continuity of Care Document ---
:1965 Author Organization [facility] Address [facility] [place] [address] Phone Care Team Providers Name Role Phone Louann Alejandre CNP Unavailable Pauly Johnson MD Unavailable Dr. Chaim Tineo Unavailable Wilder Fallon Unavailable Quang Edmondson Jr Unavailable Stephanie Jimenez Unavailable Unavailable Srikanth Marx Unavailable Unavailable Long Nicole MCKENZIE Unavailable Unavailable Unavailable Unavailable Problems Name Dates Details Abnormal CT of brain (R90.89, 793.0) Comments: has 3.3 x 3.5x 1.2 mengioma, going to [facility] for evaluation Status: Active Abnormal TSH (R79.89, 790.6) Comments: repeat normal Status: Active Blurred vision (H53.8, 368.8) Comments: to get eye exam per recommendation of Dr. Fallon, to eval diabetes vs sarcoid Status: Active BMI 28.0-28.9,adult (Z68.28, V85.24) Status: Active BMI 28.0-28.9,adult (Z68.28, V85.24) Status: Active BMI 29.0-29.9,adult (Z68.29, V85.25) Status: Active BMI 29.0-29.9,adult (Z68.29, V85.25) Status: Active BMI 30.0-30.9,adult (Z68.30, V85.30) Status: Active Brain tumor (D49.6, 239.6) Comments: suture site draining has stopped. Status: Active Diabetes type 2, controlled (E11.9, 250.00) Comments: eats when hungry change to metformin at night, saw paraeducator at hospital in Sep 2017 Status: Active Dog bite of arm, right, sequela (S41.151S, 906.1) Comments: On Augmentin Status: Active Ejaculation blood (R36.1, 608.82) Comments: New ProblemSee's Kimberly Sep.27 Status: Active Enlarged prostate (N40.0, 600.00) Comments: New Problem 09/02/17 Status: Active Fall (W19.XXXA, E888.9) Status: Active Fatigue (R53.83, 780.79) Status: Active Former smoker (Z87.891, V15.82) Status: Active GERD (gastroesophageal reflux disease) (K21.9, 530.81) Comments: uses zantac daily Status: Active Headache (R51, 784.0) Comments: Ongoing headache after brain surgery go thru [facility], seeing Debo borderline high Bp has improved Status: Active Hearing deficit (H91.90, V41.2) Comments: saw ENT will need hearing aids eventually Status: Active Hearing loss, bilateral (H91.93, 389.9) Comments: noise and early infection Status: Active Hematuria (R31.9, 599.70) Comments: history of kidney stone Status: Active Hematuria (R31.9, 599.70) Comments: on and off , Saw Kimberly, cytology neg, kidney stone had cystosopy was neg, to follow up in 6 monthsat end of micturition Status: Active Hepatomegaly (R16.0, 789.1) Comments: New Problem 09/02/17 Status: Active History of inguinal hernia (Z87.19, V12.79) Comments: rt Status: Active History of kidney stones (Z87.442, V13.01) Status: Active Hyperglycemia (R73.9, 790.29) Status: Active Hypertension (I10, 401.9) Comments: in ov 130/90 and 138/98 will put on BP med, now on amlodipine 122/80 Status: Active Hypertriglyceridemia (E78.1, 272.1) Comments: on livalo, giving samples repeat in lipid Status: Active Influenza vaccination declined (Renamed from Refused influenza vaccine) (Z28.21, V64.06) Status: Active Insomnia (G47.00, 780.52) Comments: Per Dr. Fallon needs sleep study Status: Active Insomnia, persistent (G47.00, 307.42) Status: Active Kidney stone on left side (N20.0, 592.0) Comments: Sees Kimberly on 09/06/17. Status: Active Kidney stones (N20.0, 592.0) Status: Active Leg pain, bilateral (M79.604, 729.5) Comments: ? from sciatica or fall Status: Active Lower abdominal pain (R10.30, 789.09) Status: Active Lower back pain (M54.5, 724.2) Status: Active Mediastinal adenopathy (R59.0, 785.6) Comments: extensive lymphadenopathy hilar, had Ebus by Dr. Kaur on 10-29-17, now awaiting biopsy results, will see someone in hem/onc by Dr. Kaurand hilar adenopathy Status: Active Meningioma (D32.9, 225.2) Comments: Brain tumor removed 05-18 discharged done at [facility] Brain surgery benign Status: Active Mixed dyslipidemia (E78.2, 272.2) Status: Active Multiple lung nodules on CT (R91.8, 793.19) Status: Active Muscle spasms of both lower extremities (M62.838, 728.85) Status: Active Nodule of left lung (R91.1, 793.11) Comments: New Problem 09/02/17 Status: Active Pulmonary sarcoidosis (D86.0, 135) Comments: Sees Dr. Fallon, noted via lung biopsy Ct in [address] Fallon (January) to get PFT's and Eye exam may benefit from prednisone per referal letter ()Seeing pulm October 2018, to get a sle ep test Status: Active S/P cataract surgery, left (Z98.42, V45.61) Comments: And Right Status: Active Status post cholecystectomy (Z90.49, V45.79) Comments: Age 21 at [place] Status: Active Syncope (R55, 780.2) Comments: seen in ER, work up in progress, ent, Mri brain etc Status: Active Unspecified Diagnosis Status: Active UTI symptoms (R39.9, 788.99) Status: Active Vitamin D deficiency (E55.9, 268.9) Comments: was 13.5 Status: Active Medications Name Dates Details AmLODIPine Besylate 5 MG Oral Tablet 1 (one) Tablet Tablet daily as directed for 0 days Quantity: 30 {Tablet} Refills: 11 Ordered:11-Jul-2018 Stephanie Jimenez Start : 11-Jul-2018 Active Livalo 2 MG Oral Tablet 1 (one) Tablet Tablet qhs for 0 days Quantity: 42 {Tablet} Refills: 0 Ordered:13-Dec-2017 Slarb BACK WINDER, Paulette Start : 05-Nov-2017 Active MetFORMIN HCl ER 500 MG Oral Tablet Extended Release 24 Hour 1 (one) Tablet bid for 0 days Quantity: 60 {Tablet} Refills: 6 Ordered:11-Jul-2018 Joseph DIRECT CHILL CASTER, Louann Rausch DIRECT CHILL CASTER, Corinna Start : 11-Jul-2018 Active ReliOn Confirm Glucose Monitor w/Device Kit 1 (one) Kit Kit once for 0 days Quantity: 1 {Applicator} Refills: 0 Ordered:15-Mar-2017 Slarb BACK WINDER, Paulette Start : 15-Mar-2017 Active ReliOn Confirm/micro Test In Vitro Strip 1 (one) Strip Strip test twice daily for 0 days Quantity: 60 {Strip} Refills: 6 Ordered:15-Mar-2017 Slarb BACK WINDER, Paulette Start : 15-Mar-2017 Active ReliOn Lancets Ultra-Thin 30G Miscellaneous 1 (one) Misc Misc twice daily for 0 days Quantity: 100 {Unspecified} Refills: 3 Ordered:15-Mar-2017 Slarb BACK WINDER, Paulette Start : 15-Mar-2017 Active Tylenol 325 MG Oral Capsule 1 (one) Capsule Capsule q6 hrs for 0 days Quantity: 30 {Capsule} Refills: 0 Ordered:06-Jun-2018 Long Nicole MCKENZIE L Start : 03-Jun-2018 Active Tylenol 500 MG Oral Capsule [id number] (500 MG) Active Vitamin D3 Maximum Strength 5000 UNIT Oral Capsule 1 (one) Capsule Capsule daily for 0 days Quantity: 30 {Capsule} Refills: 0 Ordered:13-Dec-2017 Slarb BACK WINDER, Paulette Start : 05-Nov-2017 Active Cyclobenzaprine HCl 10 MG Oral Tablet 1 (one) Tablet PO TID for 21 days Quantity: 63 {Tablet} Refills: 0 Ordered:06-Jun-2018 Sera Adrian Start : 06-Jun-2018 End : 27-Jun-2018 Inactive Ketorolac Tromethamine 10 MG Oral Tablet 1 (one) Tablet q6hr x 2 days for 0 days Quantity: 8 {Tablet} Refills: 0 Ordered:30-Aug-2017 Sera Adrian Start : 27-Aug-2017 End : 30-Aug-2017 Inactive MetFORMIN HCl ER (MOD) 500 MG Oral Tablet Extended Release 24 Hour 1 (one) Tablet daily at bedtime for 0 days Quantity: 30 {Tablet} Refills: 11 Ordered:01-Nov-2017 Belen Turner Start : 01-Nov-2017 End : 01-Nov-2017 Inactive Tylenol PM Extra Strength 500-25 MG Oral Tablet 1 (one) Tablet Tablet qhs prn for 0 days Quantity: 30 {Tablet} Refills: 0 Ordered:30-Aug-2017 Long Nicole MCKENZIE L Start : 15-Mar-2017 End : 30-Aug-2017 Inactive Augmentin 875-125 MG Oral Tablet 1 bid (875-125 MG) End : 08-Jul-2018 Discontinued Allergies and Adverse Reactions Name Dates Details No Known Drug Allergies (Allergy) Onset: 01-Nov-2017 Status: Active Past Medical History Name Dates Details Abnormal positron emission tomography (PET) scan (R94.8, 794.9) Comments: Bilateral thoracid perihilum , left mid abdominal retroperitoneum and right upper abdomen, Rt anterior suprclavicular region Plan EBUS with Dr. Fallon on Oct 06 6:45 Status: Inactive as of 13-Dec-2017 BMI 29.0-29.9,adult (Z68.29, V85.25) Status: Inactive as of 04-Oct-2017 BMI 30.0-30.9,adult (Z68.30, V85.30) Status: Inactive as of 12-Apr-2017 BMI 30.0-30.9,adult (Z68.30, V85.30) Status: Inactive as of 02-Aug-2017 Nonsmoker (Z78.9, V49.89) Status: Inactive as of 16-Sep-2017 Procedures Procedure Dates Details Gallbladder Surgery Completed Hernia Repair Completed Date Value Details 06-Jun-2018 L/S Spine Min 4 Views Result: Comments: See Note; NOTES: [facility] Imaging Services [address] [place] [address] L/S Spine Min 4 Views MR#: [id number] Acct: [id number] Name: YOLY SLAUGHTER Rep #: [id number] : 1965 M 52 From: Jose Alcantara DO PCP: Louann Alejandre NP Status: REG CLI Study: L/S Spine Min 4 Views Date of Exam: 06/06/18 Exam# [id number] Ordering Dr: Sera Adrian STUDY: X-RAY - CRISTINA MBAR SPINE REASON FOR EXAM: Male, 52 years old. Low back pain with leg pain TECHNIQUE: 5 view(s) of the lumbar spine were obtained. COMPARISON: None FINDINGS: Nor mal lumbar lordosis. There is no substantial scoliosis. There is a normal alignment of the vertebrae. Normal vertebral bodies and endplates. Normal disc space heights. The soft tissue structures are u nremarkable. RAD/L/S Spine Min 4 Views IMPRESSION: Normal x-ray examination of the lumbar spine. Electronically Signed: Jose Alcantara DO at 9:54 EDT Tel , Service support , CC: Louann Alejandre NP; [employer]EDGE MECHANIC-C Sera Adrian Lumber Yard Worker: Signed 03-Jun-2018 Emergency Department Summary Result: Comments: See Note; NOTES: [facility] Medical Records Department [address] [place] [address] Emergency Department Summary 06/03/181915 MR#: [id number] Acct: [id number] Name: YOLY SLAUGHTER Rep #: [id number] : 1965 52 From: Emily Perez MD PCP: Louann Alejandre NP Status: DEP ER - ER Visit Summary Date of Service: 06/03/18 Chief Complaint: Dog bite History of Pres ent Illness: The patient is a 52 M who comes with multiple dog bites from his dog. Patient states he was cutting his dogs nails and the nail got caught in a clipper. The dog bit the patient on the right hand and right forearm. He is right-hand dominant. Physical Examination: Vital signs unremarkable. Patient sitting upright in bed no acute distress. Head neck examination grossly unremarkable other th an a healing surgical wound to the right frontal scalp. Heart is regular rate and rhythm. Lung sounds are clear. Abdomen is soft nontender. Right forearm and hand reveals multiple abrasions and superfic ial lacerations. CT sheet for details. Patient has full strength and sensation with good range of motion. Test Results: Right forearm x-rays reveal soft tissue injury without bony injury. Right hand x- ray reveals no osseous injury. There is an indeterminate 0.8 mm opacity projecting over the distal phalanx soft tissues. This may be a foreign body. Emergency Department Course and Treatment: Wounds we re cleansed and dressed. Patient is treated with Augmentin. I went back and reevaluated the distal phalanx of the fifth finger. Patient does have a 2 mm superficial lack near this area. I discussed with the patient opening this area to further explore. He would prefer to take the antibiotics and watch it. He will return if symptoms worsen. Treatment Plan: [] Disposition: Discharge Impression: Dog b ites to right hand/forearm This note was generated with [employer] dictation software. It may contain incorrect words, spelling, and punctuation that were not noted in review of the chart prior to [facility] ED Disposition - Plan for ED Patient: Chief Complaint: Bite Referrals: Louann Alejandre, CARMEN-C [Primary Care Provider] - What to do if you have Problems For any increased pain, shortness of breath, bl eeding, nausea or vomiting, chest pain, or any unexpected problems, contact your Primary Care Provider. Call [facility] ([phone]) or report to the closest Emergency Room. Call 911 if necessar y. 06/03/18 0276 <Electronically signed by Emily Perez MD> Date Emily Perez MD Cosigner Signature (If Indicated): Date CC: Louann Alejandre NP 03-Jun-2018 Discharge Instruction Result: Comments: See Note; NOTES: [facility] Medical Records Department [address] [facility] [place] [address] Discharge Instruction 06/03/181917 MR#: [id number] Acct: [id number] Name: YOLY SLAUGHTER Rep #: [id number] : 1965 52 From: Emily Perez MD PCP: Louann Alejandre NP Status: REG ER ED Disposition - Plan for ED Patient: Disposition: Home or Assisted Living Chief Complaint: Bi te Instructions: ED Bite Dog Prescriptions: Amox/Clavulanate Tablet [Augmentin Tablet] 875 mg PO Q12H #20 tablet Referrals: Louann Alejandre, [employer]ED[employer] MECHANIC-C [Primary Care Provider] - 5-7 Days What to do if you have Problems For any increased pain, shortness of breath, bleeding, nausea or vomiting, chest pain, or any unexpected problems, contact your Primary Care Provider. Call [facility] ([phone]) or rachelle chadwick to the closest Emergency Room. Call 911 if necessary. 06/03/181918 <Electronically signed by Emily Perez MD> Date Emily rea MD Cosigner Signature (If Indicated): Date CC: Louann Alejandre NP 03-Jun-2018 Forearm 2 Views Result: Comments: See Note; NOTES: [facility] Imaging Services [address] [place] [address] Forearm 2 Views MR#: [id number] Acct: [id number] Name: YOLY SLAUGHTER Jay Rep #: [id number] DO B: 1965 M 52 From: Sarah Sow MD PCP: Louann Alejandre NP Status: PRE ER Study: Forearm 2 Views Date of Exam: 06/03/18 Exam# [id number] Ordering Dr: Emily Perez MD STUDY: X-RAY - RIGHT RADIUS AND ULNA REASON FOR EXAM: Male, 52 years old. Multiple puncture wounds of the right forearm secondary to dog bite. TECHNIQUE: 2 view(s) of the forearm. COMPARISON: None. FINDINGS: Soft tissue injury without foreign body. Normal visualized radius. Normal visualized ulna. Normal wrist and elbow. RAD/Forearm 2 Views IMPRESSION: Soft tissue injury without foreign body, underlying bone or joint abnormality. Electronically Signed: Sarah Sow MD at 18:31 EDT , Service suppor t , CC: Louann Alejandre NP; Emily Perez MD Lumber Yard Worker: Signed 03-Jun-2018 Hand Min 3 Views Result: Comments: See Note; NOTES: [facility] Imaging Services [address] [facility] [place] [address] Hand Min 3 Views MR#: [id number] Acct: [id number] Name: KASANDRAYOLY Rep #: [id number] D OB: 1965 M 52 From: Carol Mott MD PCP: Louann Alejandre NP Status: REG ER Study: Hand Min 3 Views Date of Exam: 06/03/18 Exam# [id number] Ordering Dr: Emily Perez MD STUDY: X-RAY - RIGHT HAND REASON FOR EXAM: Male, 52 years old. Bit by dog TECHNIQUE: 3 view(s) of the hand. COMPARISON: None. FINDINGS: There is joint space narrowing of the radiocarpal ar ticulation consistent with degenerative arthrosis. Normal distal radioulnar joint. Normal visualized carpal bones. Normal carpal articulations Normal carpometacarpal articulation of the thumb. Normal second through fifth carpometacarpal joints. Normal metacarpi. Normal metacarpophalangeal joint of the thumb. Normal interphalangeal joint of the thumb. Normal proximal and distal phalanges of the oneil mb. Normal metacarpophalangeal joints of the second through fifth fingers. Normal proximal and distal interphalangeal joints of the second through fifth fingers. Normal phalanges of the second through fifth fingers. There is a 0.8 mm opacity projecting over the soft tissues of the distal fifth digit lateral to the distal phalanx. RAD/Hand Min 3 Views IMPRESSION: No acute osseous injury. Indeterminate 0.8 mm opacity projecting over the soft tissues of the distal fifth digit may reflect a retained foreign body. Electronically Signed: Carol lundberg MD at 19:05 EDT Tel , Service support , CC: Louann Alejandre NP; Emily Perez MD Lumber Yard Worker: Signed 09-May-2018 Pulmonary Visit Report Result: Comments: See Note; NOTES: [facility] [address] [place] [address] OFFICE VISIT Date of Service: 05/09/18 MR#: [id number] Acct: [id number] Name: YOLY HAGEN Rep #: [id number] : 1965 Provider: Jazzy Rey Age/Sex: 52/M Location: [facility] Status: Signed Assessment AND Plan 1. Pulmonary sarcoidosis D86.0 Plan Stable. Shortness of br eath has not worsened, therefore no reason to initiate steroid therapy. Discussed that if the symptoms worsen prior to the scheduled follow-up that the patient should contact the office for an acute vis it. Given his upcoming surgery, there would need to be a great amount of deliberation regarding the initiation of steroid therapy, given that it would prolong any healing. No further testing at this avi e, plan to repeat pulmonary function test and a CT of the chest with contrast in 6 months prior to follow-up with Dr. Fallon. The patient will need to have kidney function evaluated prior to the CT with contrast, this has been ordered. The patient conveys understanding and is agreeable to this plan. Orders Orders: 2. Brain tumor D49.6 Plan As appropriate, the patient is concerned and focused on his u pcoming brain tumor removal. This condition complicates the exam, plan, care and prognosis. Follow-up with Dr. Fallon in 6 months. Plan Detail Follow Up 6 Months ([facility]) HPI 3 M FU: Chief Complaint: Sh ortness of breath on exertion HPI Comments Details: This patient presents the office today to follow-up after recently completing pulmonary function testing, and to evaluate his shortness of breath on exertion. He is ambulatory and currently on room air. He has not been seen in the ED or urgent care for any respiratory illnesses since his last office visit. He has not required any antibiotics or pre dnisone for any breathing problems. He is not currently on any inhalers, including rescue inhalers. Currently, he is only experiencing shortness of breath on activity. This shortness of breath on activ ity has not worsened since his last office visit, but it has not improved either. He denies any shortness of breath with conversation or at rest. He denies any cough, sputum production or hemoptysis. He denies any chest pain, wheezing, chest tightness or palpitations. He has not expressed any fever, chills or body aches. See complete review of systems. The patient does report that he has an upcoming pretesting to complete on 17 May for a brain tumor removal. He states that according to his surgeon they do not believe that his cancer is best they cannot completely rule this out until testing c an be performed. Pulmonary function test completed on March 03, 2018 interpreted as showing a mild restrictive ventilatory defect with a preserved diffusing capacity. FVC 69% of predicted, FEV1 73% pred icted, FEV1/FVC 82% predicted, TLC 82% of predicted, RV 80% of predicted and DLCO 92% Intake Vital Signs05/09/18 Height 5 ft 6 in 05/09/18 Weight: 172 lb Intake Visit Reasons: 3 M FU Accompanied by: Self Allergies No Known Allergies Allergy (Verified 05/09/18 07:43) Medications metformin 500 mg tablet 500 mg PO QDAY tab 10/05/17 [History Confirmed 05/09/18] [facility] Medical History (Reviewed @ 14:12 by Jazzy Rey NP-C) Ejaculation blood (Acute) Hematuria (Acute) Hepatomegaly (Acute) History of renal stone (Acute) Insomnia (Acute) Kidney stone on left side (Acute) Lower abdomi nal pain (Acute) Lower back pain (Acute) Abnormal positron emission tomography (PET) scan (Chronic) Bilateral hearing loss (Chronic) Enlarged prostate (Chronic) Former smoker (Chronic) GERD (gastroesoph ageal reflux disease) (Chronic) Hyperglycemia (Chronic) Hypertriglyceridemia (Chronic) Mediastinal lymphadenopathy (Chronic) Multiple lung nodules (Chronic) Nodule of left lung (Chronic) Type 2 diabetes mellitus (Chronic) Surgical History History of inguinal hernia (Acute) H/O hernia repair (Resolved) Hx of cholecystectomy (Resolved) Family Hi story Father Diabetes Social History Smoking Status: Never smoker alcohol intake: current alcohol intake frequency: holidays/special occasions on ly substance use type: marijuana Review of Systems Const CONSTITUTIONAL: Positive fatigue; negative anorexia, body ache, chills, daytime sleepiness, fever(s), night sweats, oral thrush, stops win thing during sleep, weight loss, sleeping in chair, weight loss, weight gain, frequent colds, seasonal allergies, other, headache(s) or orthopnea EETM Ear Nose Throat Mouth: Positive hearing normal and change in vision; negative hard of hearing, hoarseness, dry mouth in morning, itchy eyes, eye pain, swallowing Difficulty, ear pain, nose bleed, headache(s), mouth pain, nasal congestion, nasal discharg e, post nasal drip, sinus pain, sinus pressure, sore throat or other Cardio Cardiovascular: Negative chest pain, chest pain at rest, chest pain with activity, irregular heart rhythm, edema, shortness of breath when lying down, palpitations, murmur or other Resp Respiratory: Positive as per HPI; negative shortness of breath, pain with cough, wheezing, chest congestion, cough, chest tightness, pain on i nspiration, inhalers, increase use of rescue inhalers, snoring, apnea or other Gastro Gastrointestional: Positive other (N/V); negative bloody stools, change in appetite, difficulty swallowing, reflux, hematemesis, melena stool, loose stool or constipation Genitourinary: Negative blood in urine, nocturia, pain with urination or other Musc Musculoskeletal: Negative body pain, back pain, neck pain or other Skin/Breast Skin/Breast: Negative dry skin, itching, rash, unusual bruising, breast lump or other Neuro Neurological: Negative restless legs, confusion, weakness or other Psych Psychocological: N egative abnormal sleep pattern, anxiety, thoughts of hurting self/others, hopelessness or other Lymph Lymphatic: Negative easy bleeding, easy bruising, swollen lymph nodes or other Exam Const Constitu tional: Positive conversant, cooperative, in no acute respiratory distress, healthy appearing, well developed, well nourished and good hygiene Head Head: Positive normocephalic and atraumatic; negative cyanosis of lips/distal nose Eyes Eye: Positive clear conjunctiva; negative nystagmus or scleral abnormality Ears Ear: Positive hearing normal and external ears normal; negative hard of hearing Nose Nos e: Positive external nose normal and no nasal discharge; negative epistaxis Mouth Mouth: Positive oral mucosae normal, no lesions, oral thrush present, dentures and posterior oropharynx is adequate; neg ative post nasal drip or malodorous breath Mallampati Score: I: Mallampati Score Neck Neck: Positive normal visual inspection, full ROM and trachea midline; negative lymphadenopathy, JVD or tender Chest Wall Chest: Positive normal inspection of the chest and symmetric chest movement; negative increased A/P diameter Resp lung sounds: Positive clear to auscultation, good air exchange, normal expiratory time and normal respiratory effort; negative diminished, wheezes, rhonchi, rales, dullness to percussion or wheeze present on forced exhalation Cardio Cardiac: Positive regular rate, regular rhythm, S1 normal and S2 normal; negative murmur GI GI: Positive normal to inspection; negative distended Genitourinary: Positive deferred Musc Musculoskeletal: Positive steady gait and ROM normal; negative kyp hosis or scoliosis Skin Pulmonary Skin Exam: Positive intact; negative rash, lesion, ulcers, erythema or scaly Pulses Pulse: Yes pulses normal x4 extremities Extremities Extremities: Yes capillary refil l normal, Yes clubbing, No cyanosis, No edema Neuro Neurologic: Yes conversant, Yes no focal neuro deficits, Yes normal concentration, Yes understands questions, Yes cooperative, Yes normal coordination , Yes normal cognition Lymph Lymphatic: No lymphadenopathy, No tenderness, No cervical adenopathy Psych Appearance: Positive grossly normal, eye contact and well kempt Mental Status: Positive mental sta tus grossly normal Mood: Positive congruent mood Affect: Positive normal affect Coding Level of Care Code Off vis,est,level 4 Diagnoses Pulmonary sarcoidosis D86.0 Brain tumor D49.6 05/09/18 1419 <Electronically signed by Jazzy CUNHA> Date Jazzy CUNHA Cosigner Signature: Date (if applicable) CC: Louann Alejandre NP 14-Mar-2018 Brain W/WO Contrast Result: Comments: See Note; NOTES: [facility] Imaging Services [address] [place] [address] Brain W/WO Contrast MR#: [id number] Acct: [id number] Name: YOLY SLAUGHTER Jay Rep #: [id number] : 1965 M 52 From: Rosario Choudhury MD PCP: Louann Alejandre NP Status: REG CLI Study: Brain W/WO Contrast Date of Exam: 03/14/18 Exam# [id number] Ordering Dr: Rogerio Velázquez MD STUDY: MRI BRA IN WITH AND WITHOUT CONTRAST REASON FOR EXAM: Male, 52 years old. left hearing loss with bilat tinnitus Lt Tgt; Rt, no pain , no dizziness TECHNIQUE: Standardized multiplanar fat and water weighted pu lse sequences were obtained. 7 ml of Gadavist contrast material was administered intravenously for the contrast portion of the examination. COMPARISON: None. FINDIN GS: Normal size of the ventricles and extra-axial spaces for the patient's age. Normal white matter tracts of the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 brain. Normal bilateral basal ganglia. Normal thalami. There is no extra -axial fluid accumulation. Normal flow voids within the major intracranial circulation suggesting patency by spin echo criteria. Normal venous enhancement. There is enhancing right frontal extra-axial mass measures 3.3 x 3.5 x 1.2 cm is most likely a meningioma. 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 Normal sella turcica, pitu itary gland, infundibular stalk, optic chiasm and hypothalamus. Normal tectal plate and pineal gland. Normal midbrain, poly and medulla. Normal cerebellum. Normal basal cisterns. Normal bilateral tempo ral bones. Normal bilateral internal auditory canals. No demonstrated orbital abnormality, within the constraints of a routine brain study. Normal visualized paranasal sinuses. Normal calvarium and sku ll base. Normal visualized soft tissue structures. Normal visualized upper cervical spine. MRI/Brain W/WO Contrast IMPRESSION: There is enhancing right frontal extra-axial mass measures 3.3 x 3.5 x 1.2 cm is most likely a meningioma. Electronically Signed: Rosario Choudhury MD at 14:01 EDT Tel , Service support [phone], CC: Louann Alejandre NP; Venancio Velázquez MD Lumber Yard Worker: Signed 03-Mar-2018 Pulmonary Function Report Comp Result: Comments: See Note; NOTES: [facility] Pulmonary Services/Neurology [facility] [place] [address] MR#: [id number] Acct: [id number] Name: YOLY SLAUGHTER Rep #: [id number] : 0 1965 52 From: Wilder Fallon MD Referring Dr: Wilder Fallon MD Status: REG CLI Ordering Dr: Date: Location: [facility] Sex: M C COMPLETE PULMONARY FUNCTION TEST INTERPRETATION Brief HPI: Patient is a [age] year old male, currently under the care of myself, who presents to [facility] for complete pulmonary function tests secondary to diagnosis of sarcoidosis. Respiratory therapi st reports good effort and reproducible results. Interpretation: Forced expiration spirometry shows no large airways obstructive ventilatory defect with an FEV1 of 73% predicted. There is no significa nt bronchodilator response by ATS criteria. Spirograms are of good quality and plateau normally. The respiratory flow volume loop shows a normal pattern. Lung volumes by body plethysmography show a dec reased total lung capacity at 4.81 L, 82% predicted. All other lung volumes are reduced symmetrically. Diffusion capacity by carbon monoxide is normal at 92% predicted. The airway resistance is elevate d. No previous pulmonary function tests were available for review. Impression: Mild restrictive ventilatory defect with preserved diffusing capacity. 03/03/18 1133 <Electronically signed by Wilder Fallon MD> Date Wilder Fallon MD CC: Louann Alejandre NP; Wilder Fallon MD Date Dictated: 03/03/18 1130 Date Transcribed: 03/03/18 1130 Lumber Yard Worker: DARLENE Signed 10-Feb-2018 Downtime Report Result: Comments: See Note; NOTES: [facility] Medical Records Department [address] [place] [address] Downtime Report MR#: [id number] Acct: [id number] Name: YOLY SLAUGHTER Rep #: [id number] : 1965 52 From: Zac Gonzalez PCP: Louann Alejandre NP Status: REG CLI This patient was seen during an EMR downtime January 24, 2018 - January 31, 2018. This patient may have a combination of pa per and electronic documentation or all paper documentation. All documentation is viewable within the e-chart portion of [facility] for each patient visit. 09-Feb-2018 Pulmonary Visit Report Result: Comments: See Note; NOTES: [facility] [address] [place] [address] OFFICE VISIT Date of Service: 02/09/18 MR#: [id number] Acct: [id number] Name: YOLY HAGEN Rep #: [id number] : 1965 Provider: Wilder Fallon MD Age/Sex: 52/M Location: [facility].PMW Status: Signed Assessment AND Plan 1. Sarcoidosis of lung D86.0 Plan [place] discussion with patient about the necessity of obtaining pulmonary function test and an eye exam as it relates to sarcoidosis. Patient understands that 30% of patients will have spontaneous resolution. CT scan of the chest sh ows no progression of lymphadenopathy or pulmonary nodules. If pulmonary function tests are within normal limits, equal monitoring with every [address] would be indicated. If pulmonary functio n tests are abnormal, initiation of prednisone may be required. Await results of pulmonary function test. Orders Orders: 2. Hypersomnia G47.10 Plan Unclear etiology at this time. Patient may have sle ep phase disorder secondary to working third shift. Sleep hygiene was discussed in detail. Patient is not reporting any snoring at this time. Did discuss the possibility of obstructive sleep apnea patrick donaldson to patient's current situation, but he is refusing any workup at this time. Sleep study in the future if patient is agreeable. Plan Detail Follow Up 3 Months (CSM) HPI 3 M FU: Chief Complaint: F ollow-up test results Details: Patient is a 52-year-old male, currently in the care of Louann Alejandre, who presents for evaluation secondary to recent test results. Since last visit, patient rodri es any ER visits, hospitalizations or prednisone burst. Patient feels subjectively unchanged compared to previous. Patient does report that he had a cataract surgery on his left eye with significant imp rovement in his vision, but has had some complications with swelling behind his eye." Steroid injections were discussed, but have yet to be completed. Patient is unclear on whether he t old them about his recent sarcoidosis diagnosis. Patient states that he did not complete his pulmonary function test as he has gotten that it was needed. Patient continues to report stability and overa ll condition. Patient can get dyspneic with exertion, but otherwise feels that he is well controlled. Patient denies any current chest pain, hemoptysis, melena or unexplained weight loss. Patient denies any nausea, vomiting or other GI symptoms. Patient does continue to report fatigue, but feels that overall his sleeping has improved compared to previous. Patient blames most of his daytime fatigue on working third shift and states that he just got off of work at approximately 4 AM and that is why "I am so tired today. Patient denies any history of snoring or apneic events. Patient does readily admit to falling asleep in waiting rooms, watching TV and reading. Testing personally reviewed with the patient CT chest (01/24/2018): Multiple small pulmonary nodules unchanged in size or number with persistent mediastinal and bilateral hilar adenopathy. Intake Vital Signs02/09/18 Height 5 ft 6 in 02/09/18 Weight: 76.204 kg Intake Visit Reasons: 3 M FU Accompanied by: Self Allergies No Known Allergies Allergy (Verified 02/09/18 07:19) Medications metformin 500 mg tablet 500 mg PO QDAY tab 10/05/17 [History Confirmed 02/09/18] [facility] Medical History (Reviewed 02/09/18 @ 07:19 b y Maria Isabel Lemon) Ejaculation blood (Acute) Hematuria (Acute) Hepatomegaly (Acute) History of renal stone (Acute) Insomnia (Acute) Kidney stone on left side (Acute) Lower abdominal pain (Acute) Lower back pain (Acute) Abnormal positron emission tomography (PET) scan (Chronic) Bilateral hearing loss (Chronic) Enlarged prostate (Chronic) Former smoker (Chronic) GERD (gastroesophageal reflux disease) (Chronic) Hyperglycemia (Chronic) Hypertriglyceridemia (Chronic) Mediastinal lymphadenopathy (Chronic) Multiple lung nodules (Chronic) Nodule of left lung (Chronic) Type 2 diabetes mellitus (Chronic) Surgical History History of inguinal hernia (Acute) H/O hernia repair (Resolved) Hx of cholecystectomy (Resolved) Family History (Reviewed 02/09/18 @ 0 7:19 by Maria Isabel Lemon) Father Diabetes Social History Smoking Status: Never smoker alcohol intake: current alcohol intake frequency: holidays/special occasions only substance use type: marijuana Review of Systems Const CONSTITUTIONAL: Positive fatigue; negative anorexia, body ache, chills, daytime sleepiness, fever(s), night sweats, oral thrush, stops breathing during sleep, weight loss, s leeping in chair, weight loss, weight gain, frequent colds, seasonal allergies, other, headache(s) or orthopnea EETM Ear Nose Throat Mouth: Positive hearing normal; negative hard of hearing, hoarseness, dry mouth in morning, change in vision, itchy eyes, eye pain, swallowing Difficulty, ear pain, nose bleed, headache(s), mouth pain, nasal congestion, nasal discharge, post nasal drip, sinus pain, sinus pressure, sore throat or other Cardio Cardiovascular: Negative chest pain, chest pain at rest, chest pain with activity, irregular heart rhythm, edema, shortness of breath when lying down, palpitations , murmur or other Resp Respiratory: Positive as per HPI; negative shortness of breath, pain with cough, wheezing, chest congestion, cough, chest tightness, pain on inspiration, inhalers, increase use of rescue inhalers, snoring, apnea or other Gastro Gastrointestional: Negative bloody stools, change in appetite, difficulty swallowing, reflux, hematemesis, melena stool, loose stool, constipation or oth er Genitourinary: Negative blood in urine, nocturia, pain with urination or other Musc Musculoskeletal: Negative body pain, back pain, neck pain or other Skin/Breast Skin/Breast: Negative dry skin, i tching, rash, unusual bruising, breast lump or other Neuro Neurological: Negative restless legs, confusion, weakness or other Psych Psychocological: Negative abnormal sleep pattern, anxiety, thoughts of hurting self/others, hopelessness or other Lymph Lymphatic: Negative easy bleeding, easy bruising, swollen lymph nodes or other Exam Const Constitutional: Positive conversant, cooperative, in no acut e respiratory distress, healthy appearing, well developed, well nourished, good hygiene and appears older than stated age; negative dyspenic or ill appearing Head Head: Positive normocephalic and atraum atic; negative cyanosis of lips/distal nose, frontal sinus tenderness or maxillary sinus tenderness Eyes Eye: Positive clear conjunctiva; negative nystagmus, scleral abnormality or cataract present Ears Ear: Positive hearing normal and external ears normal; negative hard of hearing Nose Nose: Positive external nose normal, septum normal and no nasal discharge; negative epistaxis or nasal polyp Mouth M outh: Positive oral mucosae normal, no lesions and posterior oropharynx is adequate; negative post nasal drip, malodorous breath or oral thrush present Mallampati Score: II: Mallampati Score Neck Neck: Positive normal visual inspection, full ROM and trachea midline; negative lymphadenopathy or JVD Chest Wall Chest: Positive normal inspection of the chest and symmetric chest movement; negative crepitus or tenderness Resp lung sounds: Positive clear to auscultation, good air exchange, normal expiratory time and normal respiratory effort; negative wheezes, rhonchi, rales, use of accessory muscles, whee ze present on forced exhalation or dullness to percussion Cardio Cardiac: Positive regular rate, regular rhythm, S1 normal and S2 normal; negative murmur, rub or gallop GI GI: Positive normal to inspect ion and normal bowel sounds; negative distended, ascites or epigastric tenderness Genitourinary: Positive deferred Musc Musculoskeletal: Positive steady gait; negative using an assistive device for a mbulation, kyphosis or scoliosis Skin Pulmonary Skin Exam: Positive intact; negative rash, ulcers, lesion, erythema or dermal atrophy Pulses Pulse: Yes radial pulses present Extremities Extremities: Yes capillary refill normal, No clubbing, No cyanosis, No edema Neuro Neurologic: Yes conversant, Yes no focal neuro deficits, Yes understands questions, No normal concentration (Decreased concentration an d dozing off during appointment), Yes cooperative, No normal cognition, Yes normal coordination Lymph Lymphatic: No lymphadenopathy Psych Appearance: Positive grossly normal Mental Status: Positive ment al status grossly normal Mood: Positive congruent mood Affect: Positive flat Coding Level of Care Code Off vis,est,level 3 Diagnoses Sarcoidosis of lung D86.0 Hypersomnia G47.10 02/09/18 0926 &amp ;#60;Electronically signed by Wilder Fallon MD> Date Wilder Fallon MD Cosigner Signature: Date (if applicable) CC: Louann Wattsa DREDGE MECHANIC 26-Jan-2018 Chest WITH Contrast Result: Comments: See Note; NOTES: [facility] Imaging Services [address] [place] [address] Chest WITH Contrast MR#: [id number] Acct: [id number] Name: YOLY SLAUGHTER Rep #: [id number] : 1965 M 52 From: Corey Fofana MD PCP: Joseph MORALES Louann Status: REG CLI Study: Chest WITH Contrast Date of Exam: 01/24/18 Exam# [id number] Ordering Dr: Wilder Fallon MD STUDY: CT CHEST WITH CONTRAST REASON FOR EXAM: Male, 52 years old. History of sarcoidosis and diabetes. RADIATION DOSAGE (If Supplied By Facility): CTDIvol = ( 14.15 ) mGy, DLP = ( 523.85 ) mGycm TECHNIQUE: Transaxial im aging was performed following intravenous administration of 100ml ml of Isovue 300 contrast material. Individualized dose optimization techniques were used for this CT. COMPARISON: 09/28/2017. FINDINGS: Again are multiple small pulmonary nodules bilaterally, the largest measures about 6 mm unchanged in size and number since previous examination. There is mild stra nding/scarring in the right upper lobe. There is no demonstrated pleural abnormality. Normal heart and pericardium. Again are enlarged nodes in the aortopulmonic window, right paratracheal region, ant erior mediastinum and subcarinal regions unchanged since the prior examination. Enlarged bilateral hilar nodes are again seen. Normal enhanced pulmonary arteries. Normal aorta arch and descending thorac ic aorta. There are mild degenerative changes in the thoracic spine. There is no demonstrated abnormality of the visualized upper abdomen. CT/C hest WITH Contrast IMPRESSION: Multiple small pulmonary nodules unchanged in size or number since the previous examination. Persistent mediastinal and bilateral hilar adenopathy. Mild scarring in the ri ght upper lobe. No new infiltrate is seen. Electronically Signed: Corey Fofana MD at 15:57 EDT Tel , Service support , CC: Louann Will; Wilder Fallon MD Lumber Yard Worker: Signed 10-Nov-2017 Pulmonary Visit Report Result: Comments: See Note; NOTES: [facility] [address] [place] [address] OFFICE VISIT Date of Service: 11/09/17 MR#: [id number] Acct: [id number] Name: YOLY HAGEN Rep #: [id number] : 1965 Provider: Wilder Fallon MD Age/Sex: 52/M Location: [facility].PMW Status: Signed Assessment AND Plan 1. Sarcoidosis of lung D86.0 Plan Patient with multiple biopsie s of mediastinal and hilar lymphadenopathy showing only lymphocytes. There was a granuloma noted on one biopsy, which would be suggestive of sarcoidosis. Stressed to the patient that therapy may not be necessary, but normal pulmonary function test would be necessary. Also stressed to the patient importance of an ophthalmology evaluation. Patient refused referral at this time secondary to previous refe rral being placed. Will obtain a complete pulmonary function test now. We will also obtain a CT scan with contrast in 3 months to see if mediastinal lymphadenopathy is improved. Patient understands that sarcoidosis is a systemic disease with multiple manifestations. Patient may require treatment with prednisone therapy. Obtain complete pulmonary function test, CT with contrast and ophthalmology evalu ation Orders Orders: 2. Hypersomnia G47.10 Plan Discussed with patient about sleep hygiene. Patient currently with very poor sleep hygiene given that he sleeping on a couch at random times. Patient st ates that he plans on buying a bed to see if this will improve. Patient would likely benefit from a polysomnogram for evaluation of obstructive sleep apnea. If negative, narcolepsy would be a possibilit y. Patient is requesting evaluation of the lung prior to any sleep study. Sleep study in the future if patient agreeable 3. Blurry vision, bilateral H53.8 Plan Patient is reporting bilateral blurry v ision. Visual acuity was not checked, but patient does not appear to have visual field deficits on physical exam. Stressed to the patient that this could be a sign of diabetic retinopathy versus sarcoid osis. Patient was told of the importance of an ophthalmology evaluation as soon as possible. Patient voiced understanding, but refused referral given that he had a previous referral. Await ophthalmolog y recommendations. Plan Detail Follow Up 3 Months (BWA) HPI EBUS RESULTS: Chief Complaint: Test results Details: Patient is a 52-year-old male, currently in the care of Louann Alejandre, who pre sents for evaluation secondary to recent test results. Since last visit, patient has undergone endobronchial ultrasound with 17 biopsies of mediastinal lymphadenopathy. Significant mediastinal and zaida r lymphadenopathy were confirmed with ultrasound during the procedure. Patient states no complications of the procedure at this time. Patient continues to report significant difficulty with falling asl eep at night. Patient estimates that he has been sleeping only 4-5 hours at most at night. Patient has no constitutional symptoms such as fever, chills, nausea, vomiting, unexplained weight loss, hemopt ysis, melena or hematochezia. Patient does report blurring vision, but states that he has not seen the geology professor as recommended by his diabetes physician. Patient does report that he is taken tra zodone to help with sleeping. Patient reports some effect with 25 mg, but has taken up to 150 mg with significant sleep. Patient is unaware if he snores. Patient reports it is highly variable when he fa lls asleep. Patient does report that he is currently sleeping on a couch. Personally reviewed with the patient EBUS with pathology report (10/29/2017): 17 lymph node biopsies were obtained at 4 differen t lymph node stations. All showed lymphocytes with no malignant cells. 11 L Station did have a focal area of granuloma formation Flow cytometry (10/29/2017): No monoclonal band noted with a CD4 to CD8 ra clau of 0.5-1 Intake Vital Signs11/09/17 Height 5 ft 6.5 in 11/09/17 Weight: 77.564 kg Intake Visit Reasons: EBUS RESULTS Chief Complaint: Abnormal imaging Is patient in pain?: No Allergies No Known A llergies Allergy (Verified 11/09/17 10:52) Medications metformin 500 mg tablet 500 mg PO QDAY tab 10/05/17 [History Confirmed 11/09/17] [facility] Medical History Ejaculation blood (Acute) Hematuria (Acute) Hepatomegaly (Acute) History of renal stone (Acute) Insomnia (Acute) Kidney stone on left side (Acute) Lower abdominal pain (Acute) Lower back pain (Acute) Abnormal positron emission tomography (PET) scan (Chronic) Bilateral hearing loss (Chronic) Enlarged prostate (Chronic) Former smoker (Chronic) GERD (gastroesophageal reflux disease) (Chronic) H yperglycemia (Chronic) Hypertriglyceridemia (Chronic) Mediastinal lymphadenopathy (Chronic) Multiple lung nodules (Chronic) Nodule of left lung (Chronic) Type 2 diabetes mellitus (Chronic) Surgical Hi story History of inguinal hernia (Acute) H/O hernia repair (Resolved) Hx of cholecystectomy (Resolved) Family History Father Diabetes Social History Smoking Status: Never smoker alcohol intake: current alcohol intake frequency: holidays/special occasions only substance use type: marijuana Review o f Systems Const CONSTITUTIONAL: Positive daytime sleepiness and fatigue; negative anorexia, body ache, chills, fever(s), night sweats, oral thrush, stops breathing during sleep, weight loss, sleeping in chair, weight loss, weight gain, frequent colds, seasonal allergies, other, headache(s) or orthopnea EETM Ear Nose Throat Mouth: Positive hearing normal; negative hard of hearing, hoarseness, dry mouth in morning, change in vision, itchy eyes, eye pain, swallowing Difficulty, ear pain, nose bleed, headache(s), mouth pain, nasal congestion, nasal discharge, post nasal drip, sinus pain, sinus pressure, sore throat or other Cardio Cardiovascular: Negative chest pain, chest pain at rest, chest pain with activity, irregular heart rhythm, edema, shortness of breath when lying down, palpitations, murmur o r other Resp Respiratory: Positive as per HPI and cough cough: Positive non-productive; negative shortness of breath, pain with cough, wheezing, chest congestion, chest tightness, pain on inspiration, i nhalers, increase use of rescue inhalers, snoring, apnea or other Gastro Gastrointestional: Negative bloody stools, change in appetite, difficulty swallowing, reflux, hematemesis, melena stool, loose st ool, constipation or other Genitourinary: Negative blood in urine, nocturia, pain with urination or other Musc Musculoskeletal: Negative body pain, back pain, neck pain or other Skin/Breast Skin/Win st: Negative dry skin, itching, rash, unusual bruising, breast lump or other Neuro Neurological: Negative restless legs, confusion, weakness or other Psych Psychocological: Negative abnormal sleep patte rn, anxiety, thoughts of hurting self/others, hopelessness or other Lymph Lymphatic: Negative easy bleeding, easy bruising, swollen lymph nodes or other Exam Const Constitutional: Positive conversant, cooperative, in no acute respiratory distress, well developed, well nourished, good hygiene and appears older than stated age Head Head: Positive normocephalic and atraumatic; negative cyanosis of lips /distal nose, frontal sinus tenderness or maxillary sinus tenderness Eyes Eye: Positive clear conjunctiva; negative nystagmus, scleral abnormality or cataract present Ears Ear: Positive hearing normal a nd external ears normal; negative hard of hearing Nose Nose: Positive external nose normal, septum normal and no nasal discharge; negative epistaxis or nasal polyp Mouth Mouth: Positive oral mucosae nor mal, poor dentition, crowded posterior oropharynx and malodorous breath; negative post nasal drip or oral thrush present Mallampati Score: II: Mallampati Score Neck Neck: Positive normal visual inspecti on, full ROM and trachea midline; negative lymphadenopathy or JVD Chest Wall Chest: Positive normal inspection of the chest and symmetric chest movement; negative crepitus or tenderness Resp lung sounds : Positive clear to auscultation, good air exchange and normal expiratory time; negative wheezes, rhonchi, rales, use of accessory muscles or wheeze present on forced exhalation Cardio Cardiac: Positive regular rate, regular rhythm, S1 normal and S2 normal; negative murmur, rub or gallop GI GI: Positive normal to inspection and normal bowel sounds; negative distended, ascites or epigastric tenderness Genitourinary: Positive deferred Musc Musculoskeletal: Positive steady gait; negative using an assistive device for ambulation, kyphosis or scoliosis Skin Pulmonary Skin Exam: Positive intact; negati ve rash, lesion, ulcers or erythema Pulses Pulse: Yes radial pulses present Extremities Extremities: Yes capillary refill normal, No clubbing, No cyanosis, No edema, No stasis dermatitis Neuro Neurologi c: Yes conversant, Yes no focal neuro deficits, Yes cooperative, Yes normal cognition, Yes normal coordination Lymph Lymphatic: No lymphadenopathy, No tenderness, No cervical adenopathy, No axillary ya nopathy Psych Appearance: Positive grossly normal and eye contact Mental Status: Positive mental status grossly normal Mood: Positive congruent mood Affect: Positive normal affect Coding Level of Care Code Off vis,est,level 4 Diagnoses Sarcoidosis of lung D86.0 Hypersomnia G47.10 Blurry vision, bilateral H53.8 11/10/17 1811 <Electronically signed by Wilder Fallon MD> Date ___ Wilder Fallon MD Cosigner Signature: Date (if applicable) CC: Louann Alejandre NP 29-Oct-2017 Operative Report Result: Comments: See Note; NOTES: [facility] Medical Records Department [address] [place] [address] Operative Report 10/29/17 1340 MR#: [id number] Acct: [id number] Name: KASANDRALUCY Rep #: [id number] : 1965 52 From: Yaya Kaur DO PCP: Louann Alejandre NP Status: [facility] Y Location: [place] [address] Operative Report Date of Procedure: 10/29/17 BRONCHOSCOPY (EBUS) PROCEDURE REPO RT DATE OF SERVICE: October 29, 2017 BRIEF HISTORY: The patient is a 52-year-old male who follows with Dr. Fallon on an outpatient basis who is referred to me for evaluation of mediastinal and hilar lymp hadenopathy. Contrasted chest CT completed in August 2017 revealed multiple bilateral pulmonary nodules and extensive mediastinal and hilar lymphadenopathy. Subsequent PET scan was performed and reveal ed hypermetabolic areas in the aforementioned regions. Therefore, it was determined that the patient should undergo mediastinal lymph node sampling for evaluation of potential malignancy, granulomatous disease and/or occult infectious process. PROCEDURE: Bronchoscopy with endoscopic endobronchial ultrasound (EBUS), transbronchial needle aspiration INDICATION: Mediastinal and hilar lymphadenopathy P HYSICIAN: Yaya Kaur, ANESTHETIC: This procedure was completed under the supervision of anesthesia. Please refer to their documentation accordingly. COMPLICATIONS: No immediate complications not ed. DESCRIPTION OF PROCEDURE: A history and physical has been performed. Please see outpatient pulmonary clinic note. The patient's medications and allergies have been reviewed. The risks and benefits of the procedure and sedation options and risks were discussed with the patient at length. All questions were answered and informed consent was obtained. The patient's identification and proposed proced ure were verified prior to the procedure by the physician. ASA GRADE ASSESSMENT: II After obtaining informed consent, the bronchoscope was introduced through the mouth, via laryngeal mask airway and a dvanced to the tracheal bronchial tree bilaterally. The procedure was accomplished without difficulty. The patient tolerated the procedure well. FINDINGS: The visualized oropharynx appears normal. The vocal cords appeared normal and moved normally with breathing. The subglottic space is normal. The trachea was of normal caliber. The maureen is sharp. The tracheal bronchial trees of the left and right lungs were examined to at least the first subsegmental level. Bronchial mucosa and anatomy was noted to be normal. Once the airway inspection was completed, the standard bronchoscope was withdrawn and a convex probe endobronchial ultrasound (EBUS) bronchoscope was inserted through the same route. The endobronchial ultrasound endoscope was then utilized to systematically examine the superior/inferior mediastinal and hilar lymph nodes to assist with fine-needle aspiration. In total, 13 transbronchial needle aspirations were completed at 4 different lymph node stations. Transbronchial needle aspirat ion was performed at lymph node station 7 (Subcarina) using an Olympus EBUS-TBNA 19-gauge needle and sent for routine cytology. The procedure was guided by ultrasound. 6 samples were obtained. Transbro nchial needle aspiration was then performed at lymph node station 4R (Right Paratracheal) using an Olympus EBUS-TBNA 19-gauge needle and sent for routine cytology. The procedure was guided by ultrasound . 2 samples were obtained. Transbronchial needle aspiration was then performed at lymph node station 11L (Left Hilar) using an Olympus EBUS-TBNA 19-gauge needle and sent for routine cytology. The proce dure was guided by ultrasound. 2 samples were obtained. Transbronchial needle aspiration was then performed at lymph node station 10R (Right Hilar) using an Olympus EBUS-TBNA 19-gauge needle and sent f or routine cytology. The procedure was guided by ultrasound. 3 samples were obtained. Rapid on-site evaluation ([place]): Preliminary cytology was inconclusive. Final pathology results are pending. Follo wing this, the EBUS endoscope was subsequently withdrawn from the patient's airway through the LMA. A conventional bronchoscope was then reinserted into the patient's airway, at which time, any retained secretions and/or blood was cleared. The bronchoscope was then withdrawn without complication. The patient was then transferred to the PACU, where they recovered in the usual fashion. IMPRESSION: 1. E xtensive mediastinal and hilar lymphadenopathy 2. Transbronchial needle aspiration was completed at lymph node station 7 (subcarinal), 4R (right paratracheal), 11L (left hilar), 10R (right hilar) 3. [place] ples will be sent for cytology, flow cytometry, AFB and cultures. RECOMMENDATIONS: 1. Await finalized pathology results 2. Follow up with the pulmonary medicine clinic as scheduled Code Visit 9xxxx: Other Procedure See Report 10/29/17 1413 <Electronically signed by Yaya Kaur DO> Date Yaya Kaur DO CC: Louann Alejandre [employer]EDGE MECHANIC; Yaya Kaur D.O. Signed 07-Oct-2017 Pulmonary Visit Report Result: Comments: See Note; NOTES: Pulmonary Medicine [address] [place] [address] OFFICE VISIT Date of Service: 10/06/17 MR#: [id number] Acct: [id number] Name: YOLY HAGEN Rep #: [id number] : 1965 Provider: Wilder Fallon MD Age/Sex: 52/M Location: [facility].PMW Status: Signed with Addenda ADDENDUM by Wilder Fallon MD on 10/07/17 at 0541 Addendum entered and electronically signed by Wilder Fallon MD 10/07/17 05:41: Multiple phone calls and discussion yesterday about patient's situation. General surgery feels that this would better be addressed by cardiotho racic surgery given the location of the supraclavicular node. After review with Dr. Kaur, it was decided to proceed with endobronchial ultrasound procedure as previously discussed. This will not offer as good as of lymph node architecture, but may save patient surgical intervention found to have sarcoidosis or small cell lung cancer. 10/07/17 0542 <Electronically signed by Wilder Fallon MD& amp;#[id number]; Date Wilder Fallon MD cc: Louann Alejandre [employer]EDGE MECHANIC * Signed Assessment AND Plan 1. Dyspnea on exertion R06.09 Plan Patient does have a history of THC use , but denies any tobacco. Unclear if patient has some element of sarcoidosis with mediastinal lymphadenopathy. Will obtain complete pulmonary function test for evaluation of dyspnea and for establishmen t of a baseline. No new medications at this time, but may need beta agonist bronchodilator response. Obtain complete PFT. Orders Orders: 2. Mediastinal lymphadenopathy R59.0 Plan Patient with signifi cant hypermetabolic mediastinal lymphadenopathy and no obvious infiltrates noted on CT scan of the chest. Clinical concern for sarcoidosis versus occult infection versus malignancy. Patient is describin g what may be constituted as B symptoms. This would make lymphoma a possibility. For best diagnosis, removal of supraclavicular lymphadenopathy would be most appropriate first step. Will refer to [facility]. If unable to obtain biopsy from supraclavicular node, mediastinal lymphadenopathy would easily be accessed with endobronchial ultrasound. Did obtain informed consent if endobronchial ultrasou nd is necessary. Referral to surgery for possible supraclavicular lymphadenectomy. Proceed with endobronchial ultrasound if unable to obtain. Orders Orders: 3. Supraclavicular adenopathy R59.0 Plan P atient does have a hypermetabolic lymph node noted on PET scan. This was not very evident on CT scan of the chest. This does appear to be palpable, but I am unsure if this is because of knowing the PET findings. Full lymph node resection would be more diagnostic of lymphoma is found. General surgery consultation for supraclavicular node removal Orders Orders: Plan Detail Other Orders Orders: Follow Up 6 Weeks ([facility]) HPI CARMEN alejandre referral: Chief Complaint: Abnormal imaging Details: Patient is a 52-year-old male, currently in the care of Louann Alejandre, who presents for evaluation secondary to abnorma l chest imaging. Patient reports that he was of his usual self and then started to have hematuria following sexual intercourse. This did persist and patient presented to his primary care physician for workup. Patient has had multiple interventions including a cystoscopy that were negative. As part of that workup, patient did have a CT scan of the chest showing significant mediastinal lymphadenopathy. This was followed up by a PET scan recently and patient presents today for evaluation for possible endobronchial approach. Patient denies any significant smoking history outside of marijuana use. Ruma ent states he does not routinely smoke tobacco. Patient does not report any significant alcohol or other drug use. Patient has not noted any significant hemoptysis, chest pain, epistaxis or sinus conges tion. Patient is not aware of any weight loss. Patient does state that in retrospect he has been having fevers and chills intermittently, but he did not notice this initially. 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 Patient is unaware of any environmental exposures. Patient denies any history of chemotherapy or radiation in the past. Patient does continue to work despite current issues. Patient d oes report that recently he has noted some increased shortness of breath on exertion. Patient does admit he is not sure if this is truly shortness of breath or just thinking about what is going on. Patient does cough on a daily basis, but this is typically not productive. Imaging personally reviewed with the patient PET scan (09/27/2017): CT images show significant uptake of mediasti nal lymphadenopathy on both sides and a supraclavicular node, all consistent with possible malignancy. No obvious infiltrates are noted. Peripheral nodules are not hypermetabolic. CT chest (09/13/2017): Significant mediastinal lymphadenopathy without obvious infiltrate Intake Vital Signs10/06/17 Height 5 ft 5 in 10/06/17 Weight: 79.379 kg Intake Visit Reasons: [employer]EDGE MECH[employer]IC joseph referral Accompanied by: Self Allergies No Known Allergies Allergy (Verified 10/06/17 06:50) Medications metformin 500 mg tablet 500 mg PO QDAY tab 10/05/17 [History Confirmed 10/06/17] PFSH Medical History (Reviewed 8 @ 06:51 by Maria Isabel Lemon) Ejaculation blood (Acute) Hematuria (Acute) Hepatomegaly (Acute) History of renal stone (Acute) Insomnia (Acute) Kidney stone on left side (Acute) Lower abdominal pain (A cute) Lower back pain (Acute) Abnormal positron emission tomography (PET) scan (Chronic) Bilateral hearing loss (Chronic) Enlarged prostate (Chronic) Former smoker (Chronic) GERD (gastroesophageal reflu x disease) (Chronic) Hyperglycemia (Chronic) Hypertriglyceridemia (Chronic) Mediastinal lymphadenopathy (Chronic) Multiple lung nodules (Chronic) Nodule of left lung (Chronic) Type 2 diabetes mellitus ( Chronic) Surgical History History of inguinal hernia (Acute) H/O hernia repair (Resolved) Hx of cholecystectomy (Resolved) Family History (Reviewed 0 10/06/17 @ 06:51 by Maria Isabel Lemon) Father Diabetes Social History Smoking Status: Never smoker alcohol intake: current alcohol intake frequency: holidays/special occasions only substance use type: marijuana Review of Systems Const CONSTITUTIONAL: Positive night sweats and fatigue; negative anorexia, body ache, chills, daytime sleepiness, fever(s), oral thrush, stops breathing during sleep, weight loss, sleeping in chair, weight loss, weight gain, frequent colds, seasonal allergies, other, headache(s) or orthopnea EETM Ear Nose Throat Mouth: Positive hearing normal and change in vision; ne gative hard of hearing, hoarseness, dry mouth in morning, itchy eyes, eye pain, swallowing Difficulty, ear pain, nose bleed, headache(s), mouth pain, nasal congestion, nasal discharge, post nasal drip, sinus pain, sinus pressure, sore throat or other Cardio Cardiovascular: Negative chest pain, chest pain at rest, chest pain with activity, irregular heart rhythm, edema, shortness of breath when lying d own, palpitations, murmur or other Resp Respiratory: Positive as per HPI and shortness of breath; negative pain with cough, wheezing, chest congestion, cough, chest tightness, pain on inspiration, inhal ers, increase use of rescue inhalers, snoring, apnea or other Gastro Gastrointestional: Negative bloody stools, change in appetite, difficulty swallowing, reflux, hematemesis, melena stool, loose stool, constipation or other Genitourinary: Positive blood in urine; negative nocturia, pain with urination or other Musc Musculoskeletal: Positive back pain; negative body pain, neck pain or other Skin/Br east Skin/Breast: Negative dry skin, itching, rash, unusual bruising, breast lump or other Neuro Neurological: Negative restless legs, confusion, weakness or other Psych Psychocological: Negative abnorm al sleep pattern, anxiety, thoughts of hurting self/others, hopelessness or other Lymph Lymphatic: Negative easy bleeding, easy bruising, swollen lymph nodes or other Exam Const Constitutional: Positi ve conversant, cooperative, in no acute respiratory distress, healthy appearing, well developed, well nourished and good hygiene Head Head: Positive normocephalic and atraumatic; negative cyanosis of li ps/distal nose, frontal sinus tenderness or maxillary sinus tenderness Eyes Eye: Positive clear conjunctiva; negative nystagmus, scleral abnormality or cataract present Ears Ear: Positive hearing normal and external ears normal; negative hard of hearing Nose Nose: Positive external nose normal, septum normal and no nasal discharge; negative epistaxis or nasal polyp Mouth Mouth: Positive oral mucosae n ormal, poor dentition and posterior oropharynx is adequate; negative post nasal drip, oral thrush present or malodorous breath Mallampati Score: II: Mallampati Score Neck Neck: Positive normal visual in spection, full ROM and trachea midline; negative lymphadenopathy or JVD Chest Wall Chest: Positive normal inspection of the chest and symmetric chest movement; negative crepitus or tenderness Resp lung sounds: Positive clear to auscultation, good air exchange and normal expiratory time; negative wheezes, rhonchi, rales, use of accessory muscles, diminished, wheeze present on forced exhalation or dulln ess to percussion Cardio Cardiac: Positive regular rate, regular rhythm, S1 normal and S2 normal; negative murmur, rub or gallop GI GI: Positive normal to inspection and normal bowel sounds; negative di stended, ascites or epigastric tenderness Genitourinary: Positive deferred [facility] Musculoskeletal: Positive steady gait; negative using an assistive device for ambulation, kyphosis or scoliosis Skin Pu lmonary Skin Exam: Positive intact; negative rash Palpation of supraclavicular lymphadenopathy on the right Pulses Pulse: Yes radial pulses present Extremities Extremities: Yes capillary refill normal, No clubbing, No cyanosis, No edema Neuro Neurologic: Yes conversant, Yes no focal neuro deficits, Yes cooperative, Yes normal cognition, Yes normal coordination, Yes normal concentration Lymph Lymphati c: No lymphadenopathy Psych Appearance: Positive grossly normal Mental Status: Positive mental status grossly normal Mood: Positive congruent mood Affect: Positive normal affect Coding Level of Care C ode Off vis,new,level 5 Diagnoses Dyspnea on exertion R06.09 Dyspnea type: dyspnea on exertion Mediastinal lymphadenopathy R59.0 Supraclavicular adenopathy R59.0 Time Spent (min) 65 Greater than 50% i n [id number] conversation discussing situation. Multiple phone calls 10/07/17 0540 <Electronically signed by Wilder Fallon MD> Date Br jack Fallon MD Cosigner Signature: Date (if applicable) CC: Louann Alejandre NP 07-Oct-2017 Pulmonary Visit Report Result: Comments: See Note; NOTES: Pulmonary Medicine of [address] [place] [address] OFFICE VISIT Date of Service: 10/06/17 MR#: [id number] Acct: [id number] Name: YOLY HAGEN Rep #: [id number] : 1965 Provider: Wilder Fallon MD Age/Sex: 52/M Location: [facility].PMW Status: Signed Assessment AND Plan 1. Dyspnea on exertion R06.09 Plan Patient does have a history of THC use, but denies any tobacco. Unclear if patient has some element of sarcoidosis with mediastinal lymphadenopathy. Will obtain complete pulmonary function test for evaluation of dyspnea and for es tablishment of a baseline. No new medications at this time, but may need beta agonist bronchodilator response. Obtain complete PFT. Orders Orders: 2. Mediastinal lymphadenopathy R59.0 Plan Patient wi th significant hypermetabolic mediastinal lymphadenopathy and no obvious infiltrates noted on CT scan of the chest. Clinical concern for sarcoidosis versus occult infection versus malignancy. Patient is describing what may be constituted as B symptoms. This would make lymphoma a possibility. For best diagnosis, removal of supraclavicular lymphadenopathy would be most appropriate first step. Will refer to general surgery. If unable to obtain biopsy from supraclavicular node, mediastinal lymphadenopathy would easily be accessed with endobronchial ultrasound. Did obtain informed consent if endobronchia l ultrasound is necessary. Referral to surgery for possible supraclavicular lymphadenectomy. Proceed with endobronchial ultrasound if unable to obtain. Orders Orders: 3. Supraclavicular adenopathy R5 9.0 Plan Patient does have a hypermetabolic lymph node noted on PET scan. This was not very evident on CT scan of the chest. This does appear to be palpable, but I am unsure if this is because of knowin g the PET findings. Full lymph node resection would be more diagnostic of lymphoma is found. General surgery consultation for supraclavicular node removal Orders Orders: Plan Detail Other Orders Orde rs: Follow Up 6 Weeks ([facility]) MARICRUZ alejandre referral: Chief Complaint: Abnormal imaging Details: Patient is a 52-year-old male, currently in the care of Louann Alejandre, who presents for evaluation secondary to abnormal chest imaging. Patient reports that he was of his usual self and then started to have hematuria following sexual intercourse. This did persist and patient [facility]. Patient has had multiple interventions including a cystoscopy that were negative. As part of that workup, patient did have a CT scan of the chest showing significant mediastinal lympha denopathy. This was followed up by a PET scan recently and patient presents today for evaluation for possible endobronchial approach. Patient denies any significant smoking history outside of marijuana use. Patient states he does not routinely smoke tobacco. Patient does not report any significant alcohol or other drug use. Patient has not noted any significant hemoptysis, chest pain, epistaxis or si nus congestion. Patient is not aware of any weight loss. Patient does state that in retrospect he has been having fevers and chills intermittently, but he did not notice this initially. 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 Patient is unaware of any environmental exposures. Patient denies any history of chemotherapy or radiation in the past. Patient does continue to work despite current issues. Patient does report that recently he has noted some increased shortness of breath on exertion. Patient does admit he is not sure if this is truly shortness of breath or just thinking about wha t is going on. Patient does cough on a daily basis, but this is typically not productive. Imaging personally reviewed with the patient PET scan (09/27/2017): CT images show significant uptake o f mediastinal lymphadenopathy on both sides and a supraclavicular node, all consistent with possible malignancy. No obvious infiltrates are noted. Peripheral nodules are not hypermetabolic. 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 Accompanied by: Self Allergies No Known Allergies Allergy (Verified 10/06/17 06:50) Medications metformin 500 mg tablet 500 mg PO QDAY tab 10/05/17 [History Confirmed 10/06/17] [facility] (Review ed 10/06/17 @ 06:51 by Maria Isabel Lemon) Ejaculation blood (Acute) Hematuria (Acute) Hepatomegaly (Acute) History of renal stone (Acute) Insomnia (Acute) Kidney stone on left side (Acute) Lower abdomin al pain (Acute) Lower back pain (Acute) Abnormal positron emission tomography (PET) scan (Chronic) Bilateral hearing loss (Chronic) Enlarged prostate (Chronic) Former smoker (Chronic) GERD (gastroesopha geal reflux disease) (Chronic) Hyperglycemia (Chronic) Hypertriglyceridemia (Chronic) Mediastinal lymphadenopathy (Chronic) Multiple lung nodules (Chronic) Nodule of left lung (Chronic) Type 2 diabetes mellitus (Chronic) Surgical History History of inguinal hernia (Acute) H/O hernia repair (Resolved) Hx of cholecystectomy (Resolved) Family History ( Reviewed 10/06/17 @ 06:51 by Maria Isabel Lemon) Father Diabetes Social History Smoking Status: Never smoker alcohol intake: current alcohol intake frequency: holidays/special occasions only substance use type: marijuana Review of Systems Const CONSTITUTIONAL: Positive night sweats and fatigue; negative anorexia, body ache, chills, daytime sleepiness, fever(s), oral thrush, stops breathing duri ng sleep, weight loss, sleeping in chair, weight loss, weight gain, frequent colds, seasonal allergies, other, headache(s) or orthopnea EETM Ear Nose Throat Mouth: Positive hearing normal and change in vision; negative hard of hearing, hoarseness, dry mouth in morning, itchy eyes, eye pain, swallowing Difficulty, ear pain, nose bleed, headache(s), mouth pain, nasal congestion, nasal discharge, post na gary drip, sinus pain, sinus pressure, sore throat or other Cardio Cardiovascular: Negative chest pain, chest pain at rest, chest pain with activity, irregular heart rhythm, edema, shortness of breath wh en lying down, palpitations, murmur or other Resp Respiratory: Positive as per HPI and shortness of breath; negative pain with cough, wheezing, chest congestion, cough, chest tightness, pain on inspirat ion, inhalers, increase use of rescue inhalers, snoring, apnea or other Gastro Gastrointestional: Negative bloody stools, change in appetite, difficulty swallowing, reflux, hematemesis, melena stool, lo ose stool, constipation or other Genitourinary: Positive blood in urine; negative nocturia, pain with urination or other Musc Musculoskeletal: Positive back pain; negative body pain, neck pain or oth er Skin/Breast Skin/Breast: Negative dry skin, itching, rash, unusual bruising, breast lump or other Neuro Neurological: Negative restless legs, confusion, weakness or other Psych Psychocological: Negat blayne abnormal sleep pattern, anxiety, thoughts of hurting self/others, hopelessness or other Lymph Lymphatic: Negative easy bleeding, easy bruising, swollen lymph nodes or other Exam Const Constitution al: Positive conversant, cooperative, in no acute respiratory distress, healthy appearing, well developed, well nourished and good hygiene Head Head: Positive normocephalic and atraumatic; negative cyan osis of lips/distal nose, frontal sinus tenderness or maxillary sinus tenderness Eyes Eye: Positive clear conjunctiva; negative nystagmus, scleral abnormality or cataract present Ears Ear: Positive hear ing normal and external ears normal; negative hard of hearing Nose Nose: Positive external nose normal, septum normal and no nasal discharge; negative epistaxis or nasal polyp Mouth Mouth: Positive oral mucosae normal, poor dentition and posterior oropharynx is adequate; negative post nasal drip, oral thrush present or malodorous breath Mallampati Score: II: Mallampati Score Neck Neck: Positive normal visual inspection, full ROM and trachea midline; negative lymphadenopathy or JVD Chest Wall Chest: Positive normal inspection of the chest and symmetric chest movement; negative crepitus or tenderness Resp lung sounds: Positive clear to auscultation, good air exchange and normal expiratory time; negative wheezes, rhonchi, rales, use of accessory muscles, diminished, wheeze present on forced exhalatio n or dullness to percussion Cardio Cardiac: Positive regular rate, regular rhythm, S1 normal and S2 normal; negative murmur, rub or gallop GI GI: Positive normal to inspection and normal bowel sounds; n egative distended, ascites or epigastric tenderness Genitourinary: Positive deferred Musc Musculoskeletal: Positive steady gait; negative using an assistive device for ambulation, kyphosis or scolios is Skin Pulmonary Skin Exam: Positive intact; negative rash Palpation of supraclavicular lymphadenopathy on the right Pulses Pulse: Yes radial pulses present Extremities Extremities: Yes capillary refi ll normal, No clubbing, No cyanosis, No edema Neuro Neurologic: Yes conversant, Yes no focal neuro deficits, Yes cooperative, Yes normal cognition, Yes normal coordination, Yes normal concentration Lymp h Lymphatic: No lymphadenopathy Psych Appearance: Positive grossly normal Mental Status: Positive mental status grossly normal Mood: Positive congruent mood Affect: Positive normal affect Coding Level of Care Code Off vis,new,level 5 Diagnoses Dyspnea on exertion R06.09 Dyspnea type: dyspnea on exertion Mediastinal lymphadenopathy R59.0 Supraclavicular adenopathy R59.0 Time Spent (min) 65 Greater than 50% in [id number] conversation discussing situation. Multiple phone calls 10/07/17 0540 <Electronically signed by Wilder Fallon MD> Date Wilder Fallon MD Cosigner Signature: Date (if applicable) CC: Louann Alejandre CARMEN 2-Sep-2017 PET/CT Tumor Base -Thigh Init Result: Comments: See Note; NOTES: [facility] Imaging Services [address] [place] [address] PET/CT Tumor Base -Thigh Init MR#: [id number] Acct: [id number] Name: YOLY SLAUGHTER Rep # : [id number] : 1965 M 52 From: Carlos Yadav DO PCP: Louann Alejandre NP Status: REG CLI Study: PET/CT Tumor Base -Thigh Init Date of Exam: 09/27/17 Exam# [id number] Ordering Dr: Sera Adrian DREDGE MECHANIC-C EXAMINATION: FDG PET CT INDICATIONS: A 52-year-old male with reported history of pulmonary nodularity, mediastinal, thoracic perihilar adenopathy. COMPARISON EXAMINATION: CT of the chest report date d 09/13/17, CT of the abdomen and pelvis report dated 08/30/17. INDEX LESION SIZE SUV INTERPRETATION Multifocal superior-subcarinal mediastinum, bilateral thoracic perihilum 29.9 mm largest (frame 221) 11.4 (max) Fulfills quantitative criteria for viable neoplasm Mid abdominal retroperitoneum, aliza hepatis soft tissue adenopathy 14.2 mm largest (frame 166) 7.6 (max) Fulfills quantitative criteria fo r viable neoplasm Right supraclavicular region-right anterior neck 14.3 mm (frame 249) 5.5 Fulfills quantitative criteria for viable neoplasm TECHNIQUE: Following the intravenous administration of 13.5 mCi of F-18 deoxyglucose via the right hand, multiplanar image acquisitions of the neck, chest, abdomen and pelvis to level of mid thigh, obtained at one hour post radiopharmaceutical administration co ntemporaneously interpreted with the current CT of the neck, chest, abdomen and pelvis to level of mid thigh, dated 09/27/[address] of the chest report dated 09/13/17, CT of the abdom en and pelvis report dated 08/30/17 reveal: SERUM GLUCOSE LEVEL: 145 mg/dl. HEIGHT: 66 inches. WEIGHT: 169 lbs. FINDINGS: 1. Multifocal increased glucose concentration extends from the superior to sub carinal mediastinum, aorticopulmonary window and right-left thoracic perihilar regions generating a calculated maximum standard uptake value of 11.4. The maximal axial diameter of the largest individual hypermetabolic soft tissue density on review of CT of the thorax dated 09/27/17 is approximately 29.9 mm (transverse). Meticulous attention paid to the co- registered data sets of the thorax demonstrate apparent sparing of the mid-distal esophagus. 2. Increased glucose concentration is observed in the left mid abdominal retroperitoneum, periaortic in location corresponding to a soft tissue lymph node and right upper abdomen, aliza hepatis. The calculated maximum standard uptake value is 7.6. The maximal axial diameter of the corresponding hypermetabolic soft tissue density on review of CT of the ab domen dated 09/27/17 is 15.2 mm (AP). 3. An increase in glucose metabolism is demonstrated in the right anterior neck involving level IV, supraclavicular region. The calculated maximum standard uptake value is 5.5. The maximal axial diameter of the corresponding hypermetabolic soft tissue density on review of CT of the thorax dated 09/27/17 is 14.3 mm (AP). 4. Normal physiologic distribution of the radiopharmaceutical is apparent in the hepatic (2.6) and splenic parenchyma, both renal units, bladder and visualized intestinal tract. There is symmetric and preserved glucose metabolism noted in the v isualized portion of the frontal, occipital, temporal and parietal lobes of the cerebral cortex, as well as cerebral hemispheres and basal ganglia. Diffuse intestinal tract activity is noted throughout all four quadrants of the abdominal-pelvic retroperitoneum, mesentery consistent with normal physiologic distribution of the radiopharmaceutical. Prominent glucose metabolism is defined in the bilateral lower hemipelvic mesentery contiguous to the distal ureters most consistent with physiologic distribution of the radiopharmaceutical. Pertinent CT findings are as follows. CHEST: There are no parenchy mal densities-nodules demonstrated in the right-left hemithorax manifesting quantitatively significant, discernible increased glucose metabolism. Right-left axillary soft tissue densities with fatty hil us formation are non-glucose avid. ABDOMEN AND PELVIS: The gallbladder is surgically absent. Pelvic arterial calcification is observed. Fat-containing bilateral inguinal hernias are noted. Right-left in guinal soft tissue densities are ametabolic. Calcification is defined in the left kidney. Colonic diverticulosis is demonstrated. SKELETAL: Degenerative changes defined in the cervical, thoracic and lum bar spine demonstrate no evidence for glucose hypermetabolism. 0001 PET/PET/CT Tumor Base -Thigh Init IMPRESSION: 1. Increased glucose metabolism multifocally apparent in the superior-romano bcarinal mediastinum, bilateral thoracic perihilum fulfills quantitative criteria for viable neoplasm. Histopathologic investigation is recommended. (Marisela et al, Journal of Clinical Oncology 16 :2142, 1998. Tierney et al, Annals of Internal Medicine, 138:724, 2003). 2. Enhanced glucose concentration observed in the left mid abdominal retroperitoneum and right upper abdomen, aliza hepatis corresp onding to soft tissue lymph nodes, lymphadenopathy fulfills quantitative criteria for viable neoplasm. 3. The increase in glucose concentration visualized in the right anterior neck, supraclavicular reg ion fulfills quantitative criteria for viable neoplasm. Electronic Signature Carlos Yadav D.O. Electronically Signed: Carlos Yadav DO at 22:59 EST Tel , Service support [phone], CC: Louann Alejandre NP; CARMEN-C Sera Adrian Lumber Yard Worker: Signed 13-Sep-2017 Chest WITH Contrast Result: Comments: See Note; NOTES: [facility] Imaging Services [address] [place] [id number] Chest WITH Contrast MR#: [id number] Acct: [id number] Name: YOLY SLAUGHTER Jay Rep #: [id number] : 1965 M 52 From: Mamadou Peck DO PCP: Louann Alejandre NP Status: REG CLI Study: Chest WITH Contrast Date of Exam: 09/13/17 Exam# [id number] Ordering Dr: Sera Adrian DREDGE MECHANIC-Henny STUDY: CT CHEST WITH CONTRAST REASON FOR EXAM: Male, 52 years old. Left lung nodule RADIATION DOSAGE (If Supplied By Facility): CTDIvol = ( 14.06 ) mGy, DLP = ( 502.78 ) mGycm TECHNIQUE: Transaxial imaging was perfo rmed following intravenous administration of 100CC ml of Isovue 300 contrast material. Multiplanar coronal and sagittal images were reformatted. Individualized dose optimization techniques were used fo r this CT. COMPARISON: CT abdomen/pelvis 08/30/2017 FINDINGS: There are multiple lung nodules present. These range from approximately 3 mm in diameter to 6 mm in cedric meter. There are at least 5-6 nodules within each lung. There is no demonstrated pleural abnormality. Normal heart and pericardium. There is mediastinal adenopathy, with multiple prevascular lymph nod es seen, as well as anterior tracheal and subcarinal adenopathy. The subcarinal lymph node measures approximately 4.3 x 2.5 cm. There is bilateral hilar adenopathy. Normal enhanced pulmonary arteries. N ormal aorta arch and descending thoracic aorta. Normal osseous structures. There is no demonstrated abnormality of the visualized upper abdomen. 6 CT/Chest WITH Contrast IMPRESSION: Multiple bilateral pulmonary nodules. Mediastinal and hilar adenopathy. Differential considerations include infectious, inflammatory, and neoplastic etiologies. T his can be further evaluated with PET/CT. Close clinical correlation as to history of any primary malignancy is recommended. N.B. : The above information has been verbally conveyed by Mamadou Peck DO to Sera Adrian NP, Other, on 09/14/2017 09:24:41 (ET). Electronically Signed: Mamadou Peck DO at 8:58 EST Tel , Service support , N.B. : The above information has been verbally conveyed by Mamadou Peck DO to Sera Adrian NP, Other, on 09/14/2017 09:24:41 (ET). CC: Louann Alejandre NP; GUERLINE Adrian Lumber Yard Worker: Signed 30-Aug-2017 Abdomen/Pelvis without Cont Result: Comments: See Note; NOTES: [facility] Imaging Services [address] [place] [address] Abdomen/Pelvis without Cont MR#: [id number] Acct: [id number] Name: YOLY SLAUGHTER Rep #: [id number] : 1965 M 51 From: Jose Alcantara DO PCP: Louann Alejandre NP Status: REG CLI Study: Abdomen/Pelvis without Cont Date of Exam: 08/30/17 Exam# [id number] Ordering Dr: Sera Adrian STUD Y: CT ABDOMEN AND PELVIS WITHOUT CONTRAST REASON FOR EXAM: Male, 51 years old. Abdominal pain. RADIATION DOSAGE (If Supplied By Facility): CTDIvol = ( 10.71 ) mGy, DLP = ( 567.31 ) mGycm TECHNIQUE: T ransaxial images were obtained from the dome of the diaphragm to the symphysis pubis without oral contrast, and without intravenous contrast. Sagittal and coronal images were reconstructed. Individuali zed dose optimization techniques were used for this CT. COMPARISON: 11/02/2015 FINDINGS: Increased size of soft tissue nodule in the left lung base, now measuring 6. 3 mm. Otherwise, lung bases are clear. The visualized portions of the heart are within normal limits. There is hepatomegaly with diffuse hepatic enlargement. There are surgical clips in the gallbladder fossa consistent with a prior cholecystectomy. Normal spleen. Normal pancreas. Normal bilateral adrenal glands. Normal right kidney. Punctate nonobstructing left lower pole nephrolith. Otherwise, nor mal left kidney. There is a small hiatal hernia. Normal small intestine. There are multiple colonic diverticula consistent with diverticulosis. The appendix is visualized and appears normal. Normal ab dominal aorta. Normal inferior vena cava. Normal retroperitoneum. Normal urinary bladder. There is enlargement of the prostate gland. Prior right inguinal hernia repair. No evidence of recurrence. Nor mal osseous structures. CT/Abdomen/Pelvis without Cont IMPRESSION: 1. No acute findings 2. Increased size of soft tissue nodule in the left lung base. Recommend dedicated chest CT to further evaluate. 3. Unremarkable appendix. No evidence of diverticulitis. Normal small bowel. Electronically Signed: Jose Alcantara DO at 17:00 EST Tel , Service support , CC: Louann Alejandre NP; GUERLINE Adrian Lumber Yard Worker: Signed 17-May-2017 Sinus/Facial Bone Result: Comments: See Note; NOTES: [facility] Imaging Services [address] [place] [address] Sinus/Facial Bone MR#: [id number] Acct: [id number] Name: YOLY SLAUGHTER Rep #: [id number] : 1965 M 51 From: Craig Jackson MD PCP: Louann Alejandre Status: REG CLI Study: Sinus/Facial Bone Date of Exam: 05/17/17 Exam# [id number] Ordering Dr: Rogerio Velázquez MD STUDY: CT MAXILLOF ACIAL SINUSES REASON FOR EXAM: Male, 51 years old. Sinuses/eustachian tube dysfunction RADIATION DOSAGE (If Supplied By Facility): CTDIvol = ( 33.06 ) mGy, DLP = ( 875.17 ) mGycm TECHNIQUE: The patie nt was scanned in a multi detector CT scanner. High resolution axial imaging was performed without the administration of intravenous contrast material. Sagittal and coronal images were reconstructed. I ndividualized dose optimization techniques were used for this CT. COMPARISON: None. FINDINGS: FRONTAL SINUSES: Moderately hypoplastic bilaterally, without mucosal inflammatory disease. ETHMOIDAL SINUSES: Normal aeration, without mucosal inflammatory disease. MAXILLARY SINUSES: Mild mucoperiosteal thickening bilaterally. No demonstrated air-fluid levels. SPHENO IDAL SINUSES: There is a small polyp or retention cyst in the anterior inferior left sphenoid sinus. Otherwise normal aeration, without mucosal inflammatory disease. There is patency of the bilateral m axillary infundibuli with normal uncinate processes, ethmoid bullae, and hiatus semilunaris. The nasofrontal ducts are also patent bilaterally. Normal bilateral middle turbinates. Normal bilateral infe rior turbinates. There is a right sided nasal septal deviation with a right sided nasal septal spur. This contributes to focal opacification of the right nasal passage. Otherwise, there is patency of th e bilateral nasal airways. The visualized osseous structures are normal. The visualized bilateral orbital contents are normal. There is no evidence for acute mastoiditis or otitis media. There is no d emonstrated mass or significant soft tissue thickening in the region of the torus tubarius. CT/Sinus/Facial Bone IMPRESSION: Mild chronic bilate ral maxillary and left sphenoid sinusitis. No evidence for acute sinusitis. Ostiomeatal units and nasal frontal ducts are patent bilaterally. Mild rightward deviation and spurring of the nasal septum. Electronically Signed: Craig Jackson MD at 7:56 EDT , Service support , CC: Louann Alejandre; Venancio Velázquez MD Lumber Yard Worker: Signed Family History Unknown Family Member Name Dates Details Father Comments: Diabetes Status: Active Social History Name Dates Details Alcohol use: Occasional alcohol use. Status: Active Drug Use Comments: Marijuana Status: Active Living Situation: Lives alone. Status: Active Tobacco use: Never smoker. Status: Active Smoking Status Name Dates Details Never smoker Vital Signs Date Test Result Details :29 Temperature 97.7 f Comments: Method: Temporal Pulse 82 /min Comments: Pattern: Regular Respiration Rate 16 /min Comments: Pattern: Unlabored O2 SAT 95 % Comments: Room air BP Systolic 122 mm[Hg] Comments: Patient Position: Sitting; Cuff Location: Left Arm; Cuff Size: Standard BP Diastolic 80 mm[Hg] Comments: Patient Position: Sitting; Cuff Location: Left Arm; Cuff Size: Standard Weight 179 lb Height 65 in Body Mass Index Calculated 29.79 kg/m2 Body Surface Area Calculated 1.89 m2 [id number] Comments: bp recheck 138/98 Temperature 96.3 f Comments: Method: Temporal Pulse 84 /min Comments: Pattern: Regular Respiration Rate 17 /min Comments: Pattern: Unlabored O2 SAT 98 % Comments: Room air BP Systolic 120 mm[Hg] Comments: Patient Position: Sitting; Cuff Location: Left Arm; Cuff Size: Standard BP Diastolic 90 mm[Hg] Comments: Patient Position: Sitting; Cuff Location: Left Arm; Cuff Size: Standard Weight 179 lb Height 65 in Body Mass Index Calculated 29.79 kg/m2 Body Surface Area Calculated 1.89 m2 [id number] Temperature 98.1 f Comments: Method: Temporal Pulse 88 /min Comments: Pattern: Regular Respiration Rate 17 /min Comments: Pattern: Unlabored O2 SAT 97 % Comments: Room air BP Systolic 132 mm[Hg] Comments: Patient Position: Sitting; Cuff Location: Left Arm; Cuff Size: Standard BP Diastolic 80 mm[Hg] Comments: Patient Position: Sitting; Cuff Location: Left Arm; Cuff Size: Standard Weight 182.125 lb Height 65 in Body Mass Index Calculated 30.31 kg/m2 Body Surface Area Calculated 1.9 m2 :38 Temperature 98.7 f Comments: Method: Temporal Pulse 72 /min Comments: Pattern: Regular Respiration Rate 16 /min Comments: Pattern: Unlabored O2 SAT 96 % Comments: Room air BP Systolic 122 mm[Hg] Comments: Patient Position: Sitting; Cuff Location: Left Arm; Cuff Size: Standard BP Diastolic 80 mm[Hg] Comments: Patient Position: Sitting; Cuff Location: Left Arm; Cuff Size: Standard Weight 173 lb Height 65 in Body Mass Index Calculated 28.79 kg/m2 Body Surface Area Calculated 1.86 m2 :37 Temperature 97.9 f Comments: Method: Temporal Pulse 82 /min Comments: Pattern: Regular Respiration Rate 17 /min Comments: Pattern: Unlabored O2 SAT 93 % Comments: Room air BP Systolic 132 mm[Hg] Comments: Patient Position: Sitting; Cuff Location: Left Arm; Cuff Size: Standard BP Diastolic 88 mm[Hg] Comments: Patient Position: Sitting; Cuff Location: Left Arm; Cuff Size: Standard Weight 176.5 lb Height 65 in Body Mass Index Calculated 29.37 kg/m2 Body Surface Area Calculated 1.88 m2 :48 Temperature 97.4 f Comments: Method: Temporal Pulse 65 /min Comments: Pattern: Regular Respiration Rate 20 /min Comments: Pattern: Unlabored O2 SAT 97 % Comments: Room air BP Systolic 138 mm[Hg] Comments: Patient Position: Sitting; Cuff Location: Left Arm; Cuff Size: Standard BP Diastolic 86 mm[Hg] Comments: Patient Position: Sitting; Cuff Location: Left Arm; Cuff Size: Standard Weight 176.5 lb Height 65 in Body Mass Index Calculated 29.37 kg/m2 Body Surface Area Calculated 1.88 m2 :07 Temperature 97.1 f Pulse 73 /min Comments: Pattern: Regular Respiration Rate 18 /min Comments: Pattern: Unlabored O2 SAT 98 % Comments: Room air BP Systolic 110 mm[Hg] Comments: Patient Position: Sitting; Cuff Location: Left Arm; Cuff Size: Standard BP Diastolic 70 mm[Hg] Comments: Patient Position: Sitting; Cuff Location: Left Arm; Cuff Size: Standard Weight 173.375 lb Height 65 in Body Mass Index Calculated 28.85 kg/m2 Body Surface Area Calculated 1.86 m2 :03 Temperature 97.7 f Pulse 73 /min Comments: Pattern: Regular Respiration Rate 16 /min Comments: Pattern: Unlabored O2 SAT 96 % Comments: Room air BP Systolic 108 mm[Hg] Comments: Patient Position: Sitting; Cuff Location: Left Arm; Cuff Size: Standard BP Diastolic 78 mm[Hg] Comments: Patient Position: Sitting; Cuff Location: Left Arm; Cuff Size: Standard Weight 172.25 lb Height 65 in Body Mass Index Calculated 28.66 kg/m2 Body Surface Area Calculated 1.86 m2 :53 Pulse 71 /min Comments: Pattern: Regular Respiration Rate 18 /min Comments: Pattern: Unlabored O2 SAT 96 % Comments: Room air BP Systolic 114 mm[Hg] Comments: Patient Position: Sitting; Cuff Location: Left Arm; Cuff Size: Standard BP Diastolic 72 mm[Hg] Comments: Patient Position: Sitting; Cuff Location: Left Arm; Cuff Size: Standard Weight 173 lb Height 65 in Body Mass Index Calculated 28.79 kg/m2 Body Surface Area Calculated 1.86 m2 :44 Temperature 97.6 f Pulse 76 /min Comments: Pattern: Regular Respiration Rate 17 /min Comments: Pattern: Unlabored O2 SAT 96 % Comments: Room air BP Systolic 112 mm[Hg] Comments: Patient Position: Sitting; Cuff Location: Left Arm; Cuff Size: Standard BP Diastolic 78 mm[Hg] Comments: Patient Position: Sitting; Cuff Location: Left Arm; Cuff Size: Standard Weight 173.375 lb Height 65 in Body Mass Index Calculated 28.85 kg/m2 Body Surface Area Calculated 1.86 m2 :41 Pulse 77 /min Comments: Pattern: Regular Respiration Rate 16 /min Comments: Pattern: Unlabored O2 SAT 96 % Comments: Room air BP Systolic 128 mm[Hg] Comments: Patient Position: Sitting; Cuff Location: Left Arm; Cuff Size: Standard BP Diastolic 78 mm[Hg] Comments: Patient Position: Sitting; Cuff Location: Left Arm; Cuff Size: Standard Weight 174 lb Height 65 in Body Mass Index Calculated 28.95 kg/m2 Body Surface Area Calculated 1.86 m2 :38 Weight 179 lb Height 65 in Body Mass Index Calculated 29.79 kg/m2 Body Surface Area Calculated 1.89 m2 :35 Temperature 98.2 f Comments: Method: Temporal Pulse 72 /min Comments: Pattern: Regular Respiration Rate 16 /min Comments: Pattern: Unlabored O2 SAT 98 % Comments: Room air BP Systolic 130 mm[Hg] Comments: Patient Position: Sitting; Cuff Location: Left Arm; Cuff Size: Standard BP Diastolic 72 mm[Hg] Comments: Patient Position: Sitting; Cuff Location: Left Arm; Cuff Size: Standard Weight 179 lb Height 65 in Body Mass Index Calculated 29.79 kg/m2 Body Surface Area Calculated 1.89 m2 :47 Temperature 97.8 f Comments: Method: Temporal Pulse 76 /min Comments: Pattern: Regular Respiration Rate 16 /min Comments: Pattern: Unlabored O2 SAT 98 % Comments: Room air BP Systolic 132 mm[Hg] Comments: Patient Position: Sitting; Cuff Location: Left Arm; Cuff Size: Standard BP Diastolic 74 mm[Hg] Comments: Patient Position: Sitting; Cuff Location: Left Arm; Cuff Size: Standard Weight 179 lb Height 65 in Body Mass Index Calculated 29.79 kg/m2 Body Surface Area Calculated 1.89 m2 :28 Temperature 97.3 f Pulse 81 /min Comments: Pattern: Regular Respiration Rate 16 /min Comments: Pattern: Unlabored O2 SAT 96 % Comments: Room air BP Systolic 116 mm[Hg] Comments: Patient Position: Sitting; Cuff Location: Left Arm; Cuff Size: Standard BP Diastolic 72 mm[Hg] Comments: Patient Position: Sitting; Cuff Location: Left Arm; Cuff Size: Standard Weight 179 lb Height 65 in Body Mass Index Calculated 29.79 kg/m2 Body Surface Area Calculated 1.89 m2 :04 Temperature 97.9 f Pulse 77 /min Comments: Pattern: Regular Respiration Rate 18 /min Comments: Pattern: Unlabored O2 SAT 97 % Comments: Room air BP Systolic 132 mm[Hg] Comments: Patient Position: Sitting; Cuff Location: Left Arm; Cuff Size: Standard BP Diastolic 84 mm[Hg] Comments: Patient Position: Sitting; Cuff Location: Left Arm; Cuff Size: Standard Weight 179 lb Height 65 in Body Mass Index Calculated 29.79 kg/m2 Body Surface Area Calculated 1.89 m2 :44 Temperature 97 f Pulse 76 /min Comments: Pattern: Regular Respiration Rate 16 /min Comments: Pattern: Unlabored O2 SAT 97 % Comments: Room air BP Systolic 118 mm[Hg] Comments: Patient Position: Sitting; Cuff Location: Left Arm; Cuff Size: Standard BP Diastolic 76 mm[Hg] Comments: Patient Position: Sitting; Cuff Location: Left Arm; Cuff Size: Standard Weight 184 lb Height 65 in Body Mass Index Calculated 30.62 kg/m2 Body Surface Area Calculated 1.91 m2 :05 Temperature 97.2 f Pulse 66 /min Comments: Pattern: Regular Respiration Rate 18 /min Comments: Pattern: Unlabored O2 SAT 98 % Comments: Room air BP Systolic 120 mm[Hg] Comments: Patient Position: Sitting; Cuff Location: Left Arm; Cuff Size: Standard BP Diastolic 82 mm[Hg] Comments: Patient Position: Sitting; Cuff Location: Left Arm; Cuff Size: Standard Weight 186 lb Height 65 in Body Mass Index Calculated 30.95 kg/m2 Body Surface Area Calculated 1.92 m2 Results Date Description Value Details [id number] MICROALBUMIN: CREATININE RATIO Comments: PATIENT WAS FASTINGPERFORMED BY: LANIE [email or web address] [facility] [id number] ([id number]) AND ([id number]) Alb/Creat Ratio 35.8 {mg/g_creat} (Abnormal) Range: 0.0-30.0 Comments: Normal: 0.0 - 30.0 Albuminuria: 31.0 - 300.0 Clinical albuminuria: >300.0 Albumin, Urine 27.9 ug/mL (Normal) Creatinine, Urine 78.0 mg/dL (Normal) [id number] Metabolic Panel, Comprehensive Comments: PATIENT WAS FASTINGPERFORMED BY: [email or web address] [facility] [id number] ([id number]) ALT (SGPT) 24 [iU]/L (Normal) Range: 0-44 AST (SGOT) 18 [iU]/L (Normal) Range: 0-40 Alkaline Phosphatase 109 [iU]/L (Normal) Range: 39-117 Bilirubin, Total 0.9 mg/dL (Normal) Range: 0.0-1.2 A/G Ratio 1.6 (Normal) Range: 1.2-2.2 Globulin, Total 2.8 g/dL (Normal) Range: 1.5-4.5 Albumin 4.6 g/dL (Normal) Range: 3.5-5.5 Protein, Total 7.4 g/dL (Normal) Range: 6.0-8.5 Calcium 9.5 mg/dL (Normal) Range: 8.7-10.2 Carbon Dioxide, Total 22 mmol/L (Normal) Range: 20-29 Chloride 99 mmol/L (Normal) Range: 96-106 Potassium 4.3 mmol/L (Normal) Range: 3.5-5.2 Sodium 140 mmol/L (Normal) Range: 134-144 BUN/Creatinine Ratio 10 (Normal) Range: 9-20 eGFR If Africn Am 128 mL/min/1.73 (Normal) eGFR If NonAfricn Am 111 mL/min/1.73 (Normal) Creatinine 0.69 mg/dL (Abnormal) Range: 0.76-1.27 BUN 7 mg/dL (Normal) Range: 6-24 Glucose 153 mg/dL (Abnormal) Range: 65-99 29-Tsf-443438:44 CBC, Platelets & Auto Diff Comments: PATIENT WAS FASTINGPERFORMED BY: [facility]CoPal[facility] CenterUiqwiy7862 [facility] [id number] ([id number]) Immature Grans (Abs) 0.2 {x10E3/uL} Range: 0.0-0.1 (Abnormal) Comments: (An elevated percentage of Immature Granulocytes has not been foundto be clinically significant as a sole clinical predictor of disease.Does NOT include bands or blast cells. associatedphysio logical leukocytosis may also show increased immaturegranulocytes without clinical significance.) Immature Granulocytes 3 % (Normal) Baso (Absolute) 0.0 {x10E3/uL} (Normal) Range: 0.0-0.2 Eos (Absolute) 0.1 {x10E3/uL} (Normal) Range: 0.0-0.4 Monocytes(Absolute) 0.7 {x10E3/uL} (Normal) Range: 0.1-0.9 Lymphs (Absolute) 2.2 {x10E3/uL} (Normal) Range: 0.7-3.1 Neutrophils (Absolute) 5.1 {x10E3/uL} (Normal) Range: 1.4-7.0 Basos 0 % (Normal) Eos 1 % (Normal) Monocytes 8 % (Normal) Lymphs 26 % (Normal) Neutrophils 62 % (Normal) Platelets 191 {x10E3/uL} (Normal) Range: 150-379 RDW 13.7 % (Normal) Range: 12.3-15.4 MCHC 33.5 g/dL (Normal) Range: 31.5-35.7 MCH 31.2 pg (Normal) Range: 26.6-33.0 MCV 93 fL (Normal) Range: 79-97 Hematocrit 42.1 % (Normal) Range: 37.5-51.0 Hemoglobin 14.1 g/dL (Normal) Range: 13.0-17.7 RBC 4.52 {x10E6/uL} (Normal) Range: 4.14-5.80 WBC 8.3 {x10E3/uL} (Normal) Range: 3.4-10.8 62-Pnb-736881:44 TSH (THYROID STIMULATING Comments: PATIENT WAS FASTINGPERFORMED BY: iWeb TechnologiesCorewell [facility] Hospital6370 [facility] [id number] HORMONE) ([id number]) TSH 0.648 {uIU/mL} (Normal) Range: 0.450-4.500 91-Wvd-039382:44 CALCIFEDIOL (55087) Comments: PATIENT WAS FASTINGPERFORMED BY: [facility] TechnologiesCore[facility]6370 [facility] [id number] Vitamin D, 25-Hydroxy 46.4 ng/mL (Normal) Range: 30.0-100.0 Comments: Vitamin D deficiency has been defined by the [place] ofMedicine and an Endocrine Society practice guideline as alevel of serum 25-OH vitamin D less than 20 ng/mL (1,2).The Endocrine Society went on to further define vitamin Dinsufficiency as a level between 21 and 29 ng/mL (2).1. IOM ([place] of Medicine). 2010. Dietary reference intakes for calcium and D. [place]: The National Academies Press.2. Douglas MF, Ze MORA, Kendall BAY, et al. Evaluation, treatment, and prevention of vitamin D deficiency: an Endocrine Society clinical practice guideline. JCEM. 2010; 96(7):1911-30. 58-Oss-734590:44 LIPID PANEL (92719) Comments: PATIENT WAS FASTINGPERFORMED BY: [facility]CoPal[facility]ades Medical CenterQjptrn9308 [facility] [id number] LDL/HDL Ratio 1.8 {ratio} (Normal) Range: 0.0-3.6 Comments: LDL/HDL Ratio Men Women 1/2 Avg.Risk 1.0 1.5 Av g.Risk 3.6 3.2 2X Avg.Risk 6.2 5.0 3X Avg.Risk 8.0 6.1 LDL Cholesterol Calc 93 mg/dL (Normal) Range: 0-99 VLDL Cholesterol Leroy 48 mg/dL (Abnormal) Range: 5-40 HDL Cholesterol 51 mg/dL (Normal) Triglycerides 242 mg/dL (Abnormal) Range: 0-149 Cholesterol, Total 192 mg/dL (Normal) Range: 100-199 :14 Blood Glucose , Office (50686) Comments: 163 Blood Glucose , Office 163 (Normal) :14 HgA1C , Office (29825) Comments: 7.0 HgA1C , Office 7.0 % (Normal) Range: 4.6 - 7.1 33-Cnk-079864:16 CALCIFEDIOL (50461) Comments: PATIENT WAS FASTINGPERFORMED BY: LabCore[facility]6370 [facility] [id number] Vitamin D, 25-Hydroxy 47.5 ng/mL (Normal) Range: 30.0-100.0 Comments: Vitamin D deficiency has been defined by the [place] of[place]icine and an Endocrine Society practice guideline as alevel of serum 25-OH vitamin D less than 20 ng/mL (1,2).The Endocrine Society went on to further define vitamin Dinsufficiency as a level between 21 and 29 ng/mL (2).1. IOM ([place] of Medicine). 2010. Dietary reference intakes for calcium and D. [place]: The National Academies Press.2. Douglas BENDER, Ze MORA, Kendall BAY, et al. Evaluation, treatment, and prevention of vitamin D deficiency: an Endocrine Society clinical practice guideline. JCEM. 2010; 96(7):1911-30. 44-Sxj-782765:16 CBC, Platelets & Auto Diff Comments: PATIENT WAS FASTINGPERFORMED BY: [facility]6370 [facility] [id number] (63871) Immature Grans (Abs) 0.0 {x10E3/uL} (Normal) Range: 0.0-0.1 Immature Granulocytes 0 % (Normal) Baso (Absolute) 0.0 {x10E3/uL} (Normal) Range: 0.0-0.2 Eos (Absolute) 0.2 {x10E3/uL} (Normal) Range: 0.0-0.4 Monocytes(Absolute) 0.5 {x10E3/uL} (Normal) Range: 0.1-0.9 Lymphs (Absolute) 1.6 {x10E3/uL} (Normal) Range: 0.7-3.1 Neutrophils (Absolute) 4.8 {x10E3/uL} (Normal) Range: 1.4-7.0 Basos 0 % (Normal) Eos 2 % (Normal) Monocytes 8 % (Normal) Lymphs 23 % (Normal) Neutrophils 67 % (Normal) Platelets 175 {x10E3/uL} (Normal) Range: 150-379 RDW 13.5 % (Normal) Range: 12.3-15.4 MCHC 35.2 g/dL (Normal) Range: 31.5-35.7 MCH 32.0 pg (Normal) Range: 26.6-33.0 MCV 91 fL (Normal) Range: 79-97 Hematocrit 46.0 % (Normal) Range: 37.5-51.0 Hemoglobin 16.2 g/dL (Normal) Range: 13.0-17.7 RBC 5.06 {x10E6/uL} (Normal) Range: 4.14-5.80 WBC 7.2 {x10E3/uL} (Normal) Range: 3.4-10.8 44-Epa-991450:16 Metabolic Panel, Comprehensive Comments: PATIENT WAS FASTINGPERFORMED BY: [facility]6370 [facility] [id number] ([id number]) ALT (SGPT) 21 [iU]/L (Normal) Range: 0-44 AST (SGOT) 19 [iU]/L (Normal) Range: 0-40 Alkaline Phosphatase 93 [iU]/L (Normal) Range: 39-117 Bilirubin, Total 1.2 mg/dL (Normal) Range: 0.0-1.2 A/G Ratio 1.8 (Normal) Range: 1.2-2.2 Globulin, Total 2.6 g/dL (Normal) Range: 1.5-4.5 Albumin 4.7 g/dL (Normal) Range: 3.5-5.5 Protein, Total 7.3 g/dL (Normal) Range: 6.0-8.5 Calcium 9.2 mg/dL (Normal) Range: 8.7-10.2 Carbon Dioxide, Total 23 mmol/L (Normal) Range: 20-29 Chloride 98 mmol/L (Normal) Range: 96-106 Potassium 4.3 mmol/L (Normal) Range: 3.5-5.2 Sodium 139 mmol/L (Normal) Range: 134-144 BUN/Creatinine Ratio 12 (Normal) Range: 9-20 eGFR If Africn Am 129 mL/min/1.73 (Normal) eGFR If NonAfricn Am 111 mL/min/1.73 (Normal) Creatinine 0.68 mg/dL (Abnormal) Range: 0.76-1.27 BUN 8 mg/dL (Normal) Range: 6-24 Glucose 120 mg/dL (Abnormal) Range: 65-99 26-Vtk-574431:16 TSH (THYROID STIMULATING Comments: PATIENT WAS FASTINGPERFORMED BY: [employer]70 [facility] [id number] HORMONE) ([id number]) TSH 1.160 {uIU/mL} (Normal) Range: 0.450-4.500 94-Eik-135335:16 LIPID PANEL (43183) Comments: PATIENT WAS FASTINGPERFORMED BY: [employer]70 [facility] [id number] LDL/HDL Ratio 1.9 {ratio} (Normal) Range: 0.0-3.6 Comments: LDL/HDL Ratio Men Women 1/2 Avg.Risk 1.0 1.5 Av g.Risk 3.6 3.2 2X Avg.Risk 6.2 5.0 3X Avg.Risk 8.0 6.1 LDL Cholesterol Calc 91 mg/dL (Normal) Range: 0-99 VLDL Cholesterol Leroy 62 mg/dL (Abnormal) Range: 5-40 HDL Cholesterol 47 mg/dL (Normal) Triglycerides 311 mg/dL (Abnormal) Range: 0-149 Cholesterol, Total 200 mg/dL (Abnormal) Range: 100-199 :50 HgA1C , Office (43669) HgA1C , Office 6.5 % (Normal) Range: 4.6 - 7.1 :50 Blood Glucose , Office (75086) Blood Glucose , Office 140 (Normal) 09-Cyk-240568:04 T4, FREE (THYROXINE) (06577) Comments: PATIENT NOT FASTINGPERFORMED BY: [place]evestorBrianna [place] 5341870 [facility] [id number] T4,Free(Direct) 1.06 ng/dL (Normal) Range: 0.82-1.77 66-Plv-231565:04 T3, FREE (TRIDOTHYRONINE) (27191) Comments: PATIENT NOT FASTINGPERFORMED BY: iWeb TechnologiesCorewell Health [facility] Hospital6370 [facility] [id number] Triiodothyronine,Free,Serum 3.3 pg/mL (Normal) Range: 2.0-4.4 02-Stg-253147:04 TSH (THYROID STIMULATING Comments: PATIENT NOT FASTINGPERFORMED BY: Globevestor[address] [id number] HORMONE) (05295) TSH 0.879 {uIU/mL} (Normal) Range: 0.450-4.500 60-Xyw-713008:48 Microscopic Examination Comments: PATIENT NOT FASTINGPERFORMED BY: [employer] [id number] Bacteria None seen (Normal) Mucus Threads Present (Normal) Epithelial Cells (non renal) None seen {/hpf} (Normal) Range: 0 - 10 RBC 0-2 {/hpf} (Normal) Range: 0 - 2 WBC 0-5 {/hpf} (Normal) Range: 0 - 5 76-Hch-154327:26 LIPID PANEL (08975) Comments: PATIENT WAS FASTINGPERFORMED BY: [employer] [place] [id number] VLDL Cholesterol Leroy VLDLCH mg/dL (Normal) Range: 5-40 Comments: The calculation for the VLDL cholesterol is not valid whentriglyceride level is >400 mg/dL.Triglyceride result indicated is too high for an accurate LDLcholesterol estimation. HDL Cholesterol 44 mg/dL (Normal) Triglycerides 501 mg/dL (Abnormal) Range: 0-149 Cholesterol, Total 205 mg/dL (Abnormal) Range: 100-199 85-Xtf-961238:26 CALCIFEDIOL (82689) Comments: PATIENT WAS FASTINGPERFORMED BY: Mustbinlin6370 [facility] [id number] Vitamin D, 25-Hydroxy 13.5 ng/mL (Abnormal) Range: 30.0-100.0 Comments: Vitamin D deficiency has been defined by the [place] of[place]icine and an Endocrine Society practice guideline as alevel of serum 25-OH vitamin D less than 20 ng/mL (1,2).The Endocrine Society went on to further define vitamin Dinsufficiency as a level between 21 and 29 ng/mL (2).1. IOM ([place] of [employer]). 2010. Dietary reference intakes for calcium and D. [place]: The National Academies Press.2. Douglas MF, Ze [place], Kendall BAY, et al. Evaluation, treatment, and prevention of vitamin D deficiency: an Endocrine Society clinical practice guideline. JCEM. 2010; 96(7):1911-30. 51-Lik-089411:26 Metabolic Panel, Comprehensive Comments: PATIENT WAS FASTINGPERFORMED BY: GlobevestorPalisades Medical CenterKsgpto5810 [facility] [id number] (83629) ALT (SGPT) 13 [iU]/L (Normal) Range: 0-44 AST (SGOT) 10 [iU]/L (Normal) Range: 0-40 Alkaline Phosphatase, S 83 [iU]/L (Normal) Range: 39-117 Bilirubin, Total 1.9 mg/dL (Abnormal) Range: 0.0-1.2 A/G Ratio 1.7 (Normal) Range: 1.2-2.2 Globulin, Total 2.6 g/dL (Normal) Range: 1.5-4.5 Albumin, Serum 4.3 g/dL (Normal) Range: 3.5-5.5 Protein, Total, Serum 6.9 g/dL (Normal) Range: 6.0-8.5 Calcium, Serum 9.3 mg/dL (Normal) Range: 8.7-10.2 Carbon Dioxide, Total 23 mmol/L (Normal) Range: 18-29 Chloride, Serum 97 mmol/L (Normal) Range: 96-106 Potassium, Serum 4.5 mmol/L (Normal) Range: 3.5-5.2 Sodium, Serum 141 mmol/L (Normal) Range: 134-144 BUN/Creatinine Ratio 23 (Abnormal) Range: 9-20 eGFR If Africn Am 113 mL/min/1.73 (Normal) eGFR If NonAfricn Am 98 mL/min/1.73 (Normal) Creatinine, Serum 0.91 mg/dL (Normal) Range: 0.76-1.27 BUN 21 mg/dL (Normal) Range: 6-24 Glucose, Serum 174 mg/dL (Abnormal) Range: 65-99 42-Zcg-173150:26 TSH (16727) Comments: PATIENT WAS FASTINGPERFORMED BY: LabCoPalisades Medical CenterGkprbo6992 [facility] [id number] TSH 0.218 {uIU/mL} (Abnormal) Range: 0.450-4.500 84-Eya-155161:26 CBC, Platelets & Auto Diff Comments: PATIENT WAS FASTINGPERFORMED BY: LabCoPalisades Medical CenterEesjas7[address] [place] [address] [id number] (49359) Immature Grans (Abs) 0.0 {x10E3/uL} (Normal) Range: 0.0-0.1 Immature Granulocytes 1 % (Normal) Baso (Absolute) 0.0 {x10E3/uL} (Normal) Range: 0.0-0.2 Eos (Absolute) 0.2 {x10E3/uL} (Normal) Range: 0.0-0.4 Monocytes(Absolute) 0.9 {x10E3/uL} (Normal) Range: 0.1-0.9 Lymphs (Absolute) 1.7 {x10E3/uL} (Normal) Range: 0.7-3.1 Neutrophils (Absolute) 4.7 {x10E3/uL} (Normal) Range: 1.4-7.0 Basos 0 % (Normal) Eos 2 % (Normal) Monocytes 12 % (Normal) Lymphs 23 % (Normal) Neutrophils 62 % (Normal) Platelets 211 {x10E3/uL} (Normal) Range: 150-379 RDW 13.0 % (Normal) Range: 12.3-15.4 MCHC 33.9 g/dL (Normal) Range: 31.5-35.7 MCH 31.8 pg (Normal) Range: 26.6-33.0 MCV 94 fL (Normal) Range: 79-97 Hematocrit 47.8 % (Normal) Range: 37.5-51.0 Hemoglobin 16.2 g/dL (Normal) Range: 13.0-17.7 RBC 5.10 {x10E6/uL} (Normal) Range: 4.14-5.80 WBC 7.5 {x10E3/uL} (Normal) Range: 3.4-10.8 :48 URINALYSIS, W/ MICRO (63275) Comments: PATIENT NOT FASTINGPERFORMED BY: LabCoPalisades Medical CenterFpicot8857 [facility] [id number] Microscopic Examination See below: (Normal) Comments: Microscopic was indicated and was performed. Nitrite, Urine Negative (Normal) Urobilinogen,Semi-Qn 0.2 mg/dL (Normal) Range: 0.2-1.0 Bilirubin Negative (Normal) Occult Blood Trace (Abnormal) Ketones Negative (Normal) Glucose Negative (Normal) Protein Negative (Normal) WBC Esterase Negative (Normal) Appearance Clear (Normal) Urine-Color Yellow (Normal) pH 5.0 (Normal) Range: 5.0-7.5 Specific [place] 1.029 (Normal) Range: 1.005-1.030 :57 Blood Glucose , Office (17693) Blood Glucose , Office 192 (Normal) :57 HgA1C , Office (80935) HgA1C , Office 6.2 % (Normal) Range: 4.6 - 7.1 :54 Bedside Glucose Comments: [facility] LaboratoryPoint [place] [address] [place] [address] BEDSIDE GLU 140 mg/dL (Abnormal) Range: 70-110 Comments: MANAGEMENT OF PATIENT CARE PER NURSING PROTOCOL :0 ASPIRATION (SLIDES See Note (Normal) Comments: [facility] Sagkheccir[address] [place], [place], [address] 0 ONLY) Comments: Patient: YOLY SLAUGHTER : 1965 (52/M) Acct Num: [id number] Phys: Yaya Kaur D.O. Unit Num: [id number] Loc: EN Specimen: [id number] Received: 11/01/17541 Spec Type: ASP IRATION TISSUES TISSUES: A. Lung, NOS B. Lung, NOS C. Lung, NOS D. Lung, NOS E. Lung, NOS F. Lung, NOS G. Lung, NOS H. Lung, NOS I. Lung, NOS J. Lung, NOS K. Lung, NOS M. Lung, NOS N. Lung, NOS O. Lung, NOS P. Lung, NOS Q. Lung, NOS L. Lung, NOS COMMENT The specimen is evaluated at the time of procedure by Dr. Contreras. Immediate evaluation: A. EBUS, FNA, site 7, aspiration #1: Negative for malignancy. Lymphocytes and blood present. B. EBUS, FNA, site 7, aspiration #2: Nondiagnostic. Reactive bronchial cells and blood. C. EBUS, FNA, si te 7, aspiration #3: Nondiagnostic. No lymphocytes. Blood present. D. EBUS, FNA, site 7, aspiration #4: Nondiagnostic. No lymphocytes. Only blood present. E. EBUS, FNA, site 7, aspir ation #5: Negative for malignancy. Few lymphocytes present. F. EBUS, FNA, site 7, aspiration #6: Nondiagnostic. No lymphocytes. Blood present. G. EBUS, FNA, site 4R, aspiration #7: N ondiagnostic. No lymphocytes. Blood present. H. EBUS, FNA, site 4R, aspiration #8: Nondiagnostic. No lymphocytes. Reactive bronchial cells I. EBUS, FNA, site 11L, aspiration #9: Nondiagn ostic. Reactive bronchialand WBC from blood. J. EBUS, FNA, site 11L, aspiration #10: Nondiagnostic. No lymphocytes. Blood only. K. EBUS, FNA, site 10R, aspiration #11: Nondiagnostic. N o lymphocytes. Few reactive bronchial cells. L. EBUS, FNA, site 10R, aspiration #12: Nondiagnostic. No lymphocytes. M. EBUS, FNA, site 10R, aspiration #13: Nondiagnostic. No lymphocyt es. Blood. Case has been reviewed in consultation with Dr. Chatterjee who concurs with the above diagnosis. IDC:AM CYTOLOGY GROSS A Received labeled with the patient s name, and designated EBUS, FNA, site 7, aspiration #1. The specimen consists of two smears submitted for immediate cytologic evaluation (wet read). B - Received labeled with the patient s name, and designated EBU S, FNA, site 7, aspiration #2. The specimen consists of two smears submitted for immediate cytologic evaluation (wet read). C - Received labeled with the patient s name, and designated EBUS, FN A, site 7, aspiration #3. The specimen consists of two smears submitted for immediate cytologic evaluation (wet read). D - Received labeled with the patient s name, and designated EBUS, FNA, si te 7, aspiration #4. The specimen consists of two smears submitted for immediate cytologic evaluation (wet read). E - Received labeled with the patient s name, and designated EBUS, FNA, site 7, aspiration #5. The specimen consists of two smears submitted for immediate cytologic evaluation (wet read). F - Received labeled with the patient s name, and designated EBUS, FNA, site 7, aspi ration #6. The specimen consists of two smears submitted for immediate cytologic evaluation (wet read). G - Received labeled with the patient s name, and designated EBUS, FNA, site 4R, aspirati on #7. The specimen consists of two smears submitted for immediate cytologic evaluation (wet read). H - Received labeled with the patient s name, and designated EBUS, FNA, site 4R, aspiration # 8. The specimen consists of two smears submitted for immediate cytologic evaluation (wet read). I - Received labeled with the patient s name, and designated EBUS, FNA, site 11L, aspiration #9. The specimen consists of two smears submitted for immediate cytologic evaluation (wet read). J - Received labeled with the patient s name, and designated EBUS, FNA, site 11L, aspiration #10. The specimen consists of two smears submitted for immediate cytologic evaluation (wet read). K - Received labeled with the patient s name, and designated EBUS, FNA, site 10R, aspiration #11. Th e specimen consists of two smears submitted for immediate cytologic evaluation (wet read). L - Received labeled with the patient s name, and designated EBUS, FNA, site 10R, aspiration #12. The specimen consists of two smears submitted for immediate cytologic evaluation (wet read). M - Received labeled with the patient s name, and designated EBUS, FNA, site 10R, aspiration #13. The sp ecimen consists of two smears submitted for immediate cytologic evaluation (wet read). N Received in RPMI and labeled with the patient s name, and designated TBNA, site 7. Submitted for cytol ogy preparation including cell block. A portion of the specimen is also submitted for flow cytometry. 0 - Received in RPMI and labeled with the patient s name, and designated TBNA, site 4R. Romano bmitted for cytology preparation including cell block. A portion of the specimen is also submitted for flow cytometry. P - Received in RPMI and labeled with the patient s name, and designated TB NA, site 11L. Submitted for cytology preparation including cell block. A portion of the specimen is also submitted for flow cytometry. Q - Received in RPMI and labeled with the patient s name, and designated TBNA, site 10R. Submitted for cytology preparation including cell block. A portion of the specimen is also submitted for flow cytometry. / FA:efra 10/29/17 TC:5 CPT: 07836 x4, 46448 x4, 87832 x9, 25371 x4, 46735 x2 CYTOLOGY STUDY Slides are reviewed. N. The specimen consists only of a few small lymphocytes. O. The specimen only shows blood. P. The specimen consists of lymphocytes and focal area suggestive of granuloma formation. Q. The specimen predominantly consists of blood and one minute fragment of cartilage. DIAGNOSIS CYTOLOGY A. EBUS, FNA, site 7 , aspiration #1: Adequate for evaluation. Negative for malignant cells or granulomas. Lymphocytes are present. B. EBUS, FNA, site 7, aspiration #2: Adequate for evaluation. Negat blayne for malignant cells or granulomas. Lymphocytes and respiratory cells present. C. EBUS, FNA, site 7, aspiration #3: Only a few lymphocytes are present. Negative for malignant cells. D. EBUS, FNA, site 7, aspiration #4: Only a few lymphocytes are present. Negative for malignant cells. E. EBUS, FNA, site 7, aspiration #5: Adequate for evaluation. Negative for ma lignant cells or granulomas. Lymphocytes are present. F. EBUS, FNA, site 7, aspiration #6: Only a few lymphocytes are present. Negative for malignant cells. G. EBUS, FNA, site 4R, aspir ation #7: Nondiagnostic specimen. Rare respiratory epithelial cells and lymphocytes are present. H. EBUS, FNA, site 4R, aspiration #8: Nondiagnostic specimen. Rare respiratory epithel ial cells and lymphocytes are present. I. EBUS, FNA, site 11L, aspiration #9: Adequate for evaluation. Negative for malignant cells or granuloma. Respiratory epithelial cells and lymphocytes are present. J. EBUS, FNA, site 11L, aspiration #10: Nondiagnostic specimen. Rare respiratory epithelial cells and lymphocytes are present. K. EBUS, FNA, site 10R, aspiration # 11: Nondiagnostic specimen. Rare respiratory epithelial cells and lymphocytes are present. L. EBUS, FNA, site 10R, aspiration #12: Nondiagnostic specimen. Rare lymphocytes are noted. M. EBUS, FNA, site 10R, aspiration #13: Nondiagnostic specimen. Respiratory epithelial cells and rare lymphocytes are noted. N. TBNA, site 7, fluid (cell block): Negative for maligna nt cells or lymphoma. Flow cytometry shows no evidence of B-cell or T-cell lymphoma. See cytology study. O. TBNA, site 4R, fluid (cell block): Negative for malignant cells. F low cytometry shows no phenotypic evidence of lymphoma. See cytology study. P. TBNA, site 11L, fluid (cell block): Focal area suggestive of granuloma formation. Special stains for acid fas t bacilli and fungi are negative for organisms; matched controls are appropriate. Flow cytometry shows no evidence of B-cell or T-cell lymphoma. See cytology study. Q. TBNA, site 10R, fluid (cell block): Negative for malignant cells. Flow cytometry shows no evidence of B-cell or T-cell lymphoma. See cytology study. SJ:efra 11/01/17 HEADER OPERATION: Bronchoscopy with endo scopic endobronchial ultrasound (EBUS), transbronchial needle aspiration PRE-OP DIAGNOSIS: Mediastinal and hilar lymphadenopathy TISSUE SUBMITTED: A-F EBUS, FNA, site 7, G-H EBUS, FNA, site 4R , I AND J EBUS, FNA, site 11L, K-M EBUS, FNA site 10R, N TBNA site 7, O - TBNA site 4R, P - TBNA site 11L, Q - TBNA site 10R Signed Dylan Miller 11/02/17 <signature on file> 4-Ltm-684527:00 CBC W/Diff, Automated Comments: [facility] [address] [place], [place], [id number] Absolute Lymph 1.28 {X10_3/ul} (Normal) Range: 0.83-4.51 Absolute Neut 3.3 {X10_3/uL} (Normal) Range: 2.0-7.7 IM GRAN % 0.600 % (Normal) Range: 0.0-0.9 Comments: IG% - Immature Granulocytes (promyelocytes, myelocytes andmetamyelocytes) > 1% indicates that a LEFT SHIFT is Present. BASO% 0.4 % (Normal) Range: 0-1 EO% 2.1 % (Normal) Range: 0-5 MONO% 10.9 % (Abnormal) Range: 0-10 LY% 24.0 % (Normal) Range: 19-41 NEUT% 62.0 % (Normal) Range: 47-70 MPV 11.4 fL (Normal) Range: 6.2-12.0 PLT 194 K/mm3 (Normal) Range: 150-450 RDW SD 42.8 fL (Normal) Range: 35.1-43.9 RDW CV 12.8 % (Normal) Range: 11.6-14.6 MCHC 34.1 {g/gl} (Normal) Range: 32-36 MCH 31.8 pg (Normal) Range: 27.0-32.0 MCV 93.3 fL (Normal) Range: 80-94 HCT 46.1 % (Normal) Range: 40-54 HGB 15.7 g/dL (Normal) Range: 13.0-16.5 RBC 4.94 {M/mm3} (Normal) Range: 4.6-6.2 WBC 5.3 K/mm3 (Normal) Range: 4.4-11.0 1-Fvu-610504:00 Partial Thromboplast Time Comments: [facility] [address] [place], [address] PTT 31.7 s (Normal) Range: 24.1-36.2 9-Pdd-408429:00 Prothrombin Time w/INR Comments: [facility] [address] [place], [place], [address] INR 1.0 (Normal) PROTIME 13.6 s (Normal) Range: 11.7-14.9 47-Rvx-912072:56 urine immunofixation (54704) Comments: PATIENT NOT FASTINGPERFORMED BY: [employer] [facility] [id number] KENIA Interpretation:U UPEIP (Normal) Comments: No monoclonality detected. 90-Oqn-246155:56 serum immunofixation (81630) Comments: PATIENT NOT FASTINGPERFORMED BY: [employer]6370 [facility] [id number] Immunoglobulin M, Qn, Serum 36 mg/dL (Normal) Range: 20-172 Immunoglobulin A, Qn, Serum 219 mg/dL (Normal) Range: 90-386 Immunoglobulin G, Qn, Serum 1156 mg/dL (Normal) Range: 700-1600 Immunofixation Result, Serum UPEIP (Normal) Comments: No monoclonality detected. 42-Kla-904016:56 serum free light chains Comments: PATIENT NOT FASTINGPERFORMED BY: [employer]er [employer] [facility] [id number] ([id number]) [place]/Lambda Ratio,S 1.17 (Normal) Range: 0.26-1.65 Free Lambda Lt Chains,S 15.8 mg/L (Normal) Range: 5.7-26.3 Free [place] Lt Chains,S 18.5 mg/L (Normal) Range: 3.3-19.4 90-Dnu-318109:56 UP (22690) Comments: PATIENT NOT FASTINGPERFORMED BY: [facility]6370 [facility] [id number] Please note: SPRCS (Normal) Comments: Protein electrophoresis scan will follow via computer, mail, orcourier delivery. M-Calderon, % 5.4 % (Abnormal) Gamma Globulin, U 21.6 % (Normal) Beta Globulin, U 36.9 % (Normal) Mrfkv-2-Wsprxxxj, U 11.2 % (Normal) Lcfwk-8-Tapdttsl, U 4.0 % (Normal) Albumin, U 26.3 % (Normal) Protein,Total,Urine 25.9 mg/dL (Normal) 50-Xom-001098:56 SPE (99660) Comments: PATIENT NOT FASTINGPERFORMED BY: [facility]estorPresbyterian HospitalCfomud3420 [facility] [id number] Please note: SPRCS (Normal) Comments: Protein electrophoresis scan will follow via computer, mail, orcourier delivery. A/G Ratio 1.2 (Normal) Range: 0.7-1.7 Globulin, Total 3.3 g/dL (Normal) Range: 2.2-3.9 M-Calderon Not Observed g/dL (Normal) Gamma Globulin 1.3 g/dL (Normal) Range: 0.4-1.8 Beta Globulin 1.1 g/dL (Normal) Range: 0.7-1.3 Vtngf-9-Oiosddvc 0.7 g/dL (Normal) Range: 0.4-1.0 Ozvkr-1-Mcslekib 0.2 g/dL (Normal) Range: 0.0-0.4 Albumin 3.9 g/dL (Normal) Range: 2.9-4.4 Protein, Total, Serum 7.2 g/dL (Normal) Range: 6.0-8.5 1-Wyz-687848:30 Cytology, Body Fluid / CSF Comments: Specimen Source: [facility] [address] [place], [place], [id number] CYTOLOGY,BF/CSF SEE PATHOLOGY REPORT Comments: Specimen submitted to Anatomical Pathology Department fortesting. (Normal) 27-Sep-20170:00 CYTOSPIN ON FLUID See Note (Normal) Comments: [facility] [id number] [place], [address] Comments: Patient: YOLY SLAUGHTER : 1965 (52/M) Acct Num: [id number] Phys: Kimberly JONES,Saurabh Unit Num: [id number] Loc: LABSPEC Specimen: [id number] Received: 09/27/17 - 1530 Spec T ype: CYSPIN FL TISSUES TISSUES: Urine CYTOLOGY GROSS Received is 70 ml of clear gold fluid labeled with the patient's name and and designated per the requisition as urine. Submitted for cytology preparation. 09/28/17 TC:2 CPT: 46913 CYTOLOGY STUDY Slides are reviewed. The specimen consists of neutrophils, red blood cells and a few benign urothelial ce lls. DIAGNOSIS CYTOLOGY Urine for cytology (cytospin): Negative for malignant cells. Acute inflammation. SJ:efra 09/29/17 HEADER OPERATION: Not noted PRE-OP DIAGNOSIS: Hemat uria TISSUE SUBMITTED: Urine for cytology Signed Dylan Miller 09/29/17 <signature on file> 43-Ive-851644:13 LEIDA (ANTINUCLEAR ANTIBODY) Comments: PATIENT NOT FASTINGPERFORMED BY: [employer]call[employer] CormierInteract [facility]Davis [facility] [id number] ([id number]) LEIDA Direct Negative (Normal) 97-Csa-27460:38 CREATININE FINGERSTICK Comments: [facility] LaboratoryPoint of [id number] [place] [address] EGFR WB > 60.0000 mL/min (Normal) CREATININE WB 1.0 mg/dL (Normal) Range: 0.70-1.30 52-Roo-677324:44 METABOLIC PANEL, COMPREHENSIVE Comments: PATIENT NOT FASTINGPERFORMED BY: [employer] Ydvcql6182 CormierInteract [facility]Davis [facility] [id number] ([id number]) ALT (SGPT) 18 [iU]/L (Normal) Range: 0-44 AST (SGOT) 16 [iU]/L (Normal) Range: 0-40 Alkaline Phosphatase, S 83 [iU]/L (Normal) Range: 39-117 Bilirubin, Total 1.7 mg/dL (Abnormal) Range: 0.0-1.2 A/G Ratio 1.8 (Normal) Range: 1.2-2.2 Globulin, Total 2.7 g/dL (Normal) Range: 1.5-4.5 Albumin, Serum 4.9 g/dL (Normal) Range: 3.5-5.5 Protein, Total, Serum 7.6 g/dL (Normal) Range: 6.0-8.5 Calcium, Serum 9.8 mg/dL (Normal) Range: 8.7-10.2 Carbon Dioxide, Total 24 mmol/L (Normal) Range: 18-29 Chloride, Serum 99 mmol/L (Normal) Range: 96-106 Potassium, Serum 4.4 mmol/L (Normal) Range: 3.5-5.2 Sodium, Serum 144 mmol/L (Normal) Range: 134-144 BUN/Creatinine Ratio 12 (Normal) Range: 9-20 eGFR If Africn Am 103 mL/min/1.73 (Normal) eGFR If NonAfricn Am 89 mL/min/1.73 (Normal) Creatinine, Serum 0.99 mg/dL (Normal) Range: 0.76-1.27 BUN 12 mg/dL (Normal) Range: 6-24 Glucose, Serum 143 mg/dL (Abnormal) Range: 65-99 65-Ufa-275534:44 KVBWU-[id number]-VRUFO (43571) Comments: PATIENT NOT FASTINGPERFORMED BY: TruecallerPalisades Medical CenterQboomj2219 [facility] [id number] AFP, Serum, Tumor Marker 2.2 ng/mL (Normal) Range: 0.0-8.3 Comments: Conchita ECLIA methodology 68-Kea-597715:44 HEPATIC FUNCTION PANEL Comments: PATIENT NOT FASTINGPERFORMED BY: TruecallerPalisades Medical CenterUlbfyq6852 [facility] [id number] ([id number]) Bilirubin, Direct 0.32 mg/dL (Normal) Range: 0.00-0.40 16-Uib-290996:44 LDH (LD) (LACTATE DEHYDROGENASE) Comments: PATIENT NOT FASTINGPERFORMED BY: iWeb TechnologiesCorewell Health Butter[facility] Hospital6370 [facility] [id number] ([id number]) LDH 150 [iU]/L (Normal) Range: 121-224 85-Cyr-774729:44 PSA (PROSTATE SPECIFIC Comments: PATIENT NOT FASTINGPERFORMED BY: LabCorewell [facility] Hospital6370 [facility] [id number] ANTIGEN) ([id number]) Prostate Specific Ag, 0.8 ng/mL (Normal) Range: 0.0-4.0 Serum Comments: [employer] VascularIA methodology. .According to the [employer], Serum PSA shoulddecrease and remain at undetectable levels after radicalprostatectomy. The AUA defines biochemical recurrence as an initialPSA value 0.2 ng/mL or greater followed by a subsequent confirmatoryPSA value 0.2 ng/mL or greater.Values obtained with d ifferent assay methods or kits cannot be usedinterchangeably. Results cannot be interpreted as absolute evidenceof the presence or absence of malignant disease. 1-Vlg-569053:49 METABOLIC PANEL, COMPREHENSIVE Comments: PATIENT NOT FASTINGPERFORMED BY: iWeb TechnologiesCorewell [facility] Hospital6370 [facility] [id number] ([id number]) ALT (SGPT) 14 [iU]/L (Normal) Range: 0-44 AST (SGOT) 12 [iU]/L (Normal) Range: 0-40 Alkaline Phosphatase, S 79 [iU]/L (Normal) Range: 39-117 Bilirubin, Total 0.9 mg/dL (Normal) Range: 0.0-1.2 A/G Ratio 1.6 (Normal) Range: 1.2-2.2 Globulin, Total 2.6 g/dL (Normal) Range: 1.5-4.5 Albumin, Serum 4.1 g/dL (Normal) Range: 3.5-5.5 Protein, Total, Serum 6.7 g/dL (Normal) Range: 6.0-8.5 Calcium, Serum 9.1 mg/dL (Normal) Range: 8.7-10.2 Carbon Dioxide, Total 27 mmol/L (Normal) Range: 18-29 Chloride, Serum 104 mmol/L (Normal) Range: 96-106 Potassium, Serum 4.7 mmol/L (Normal) Range: 3.5-5.2 Sodium, Serum 142 mmol/L (Normal) Range: 134-144 BUN/Creatinine Ratio 13 (Normal) Range: 9-20 eGFR If Africn Am 119 mL/min/1.73 (Normal) eGFR If NonAfricn Am 103 mL/min/1.73 (Normal) Creatinine, Serum 0.84 mg/dL (Normal) Range: 0.76-1.27 BUN 11 mg/dL (Normal) Range: 6-24 Glucose, Serum 135 mg/dL (Abnormal) Range: 65-99 2-Mpr-744066:49 SED RATE ERYTHROCYTE (22750) Comments: PATIENT NOT FASTINGPERFORMED BY: [employer] LabCoPalisades Medical CenterSbtgqd2399 Cormier [facility] [id number] Sedimentation Rate-Westergren 2 mm/h (Normal) Range: 0-15 :49 CBC, PLATELETS & MANUAL DIFF Comments: PATIENT NOT FASTINGPERFORMED BY: [employer] Zzwliy9007 Cormier [facility] [id number] ([id number]) Immature Grans (Abs) 0.0 {x10E3/uL} (Normal) Range: 0.0-0.1 Immature Granulocytes 0 % (Normal) Baso (Absolute) 0.0 {x10E3/uL} (Normal) Range: 0.0-0.2 Eos (Absolute) 0.1 {x10E3/uL} (Normal) Range: 0.0-0.4 Monocytes(Absolute) 0.6 {x10E3/uL} (Normal) Range: 0.1-0.9 Lymphs (Absolute) 1.3 {x10E3/uL} (Normal) Range: 0.7-3.1 Neutrophils (Absolute) 5.0 {x10E3/uL} (Normal) Range: 1.4-7.0 Basos 0 % (Normal) Eos 2 % (Normal) Monocytes 8 % (Normal) Lymphs 18 % (Normal) Neutrophils 72 % (Normal) Platelets 167 {x10E3/uL} (Normal) Range: 150-379 RDW 12.8 % (Normal) Range: 12.3-15.4 MCHC 33.1 g/dL (Normal) Range: 31.5-35.7 MCH 31.1 pg (Normal) Range: 26.6-33.0 MCV 94 fL (Normal) Range: 79-97 Hematocrit 46.5 % (Normal) Range: 37.5-51.0 Hemoglobin 15.4 g/dL (Normal) Range: 13.0-17.7 RBC 4.95 {x10E6/uL} (Normal) Range: 4.14-5.80 WBC 7.0 {x10E3/uL} (Normal) Range: 3.4-10.8 0-Vnj-018484:53 Urinalysis, Office (50755) UA - LEUKOCYTE ESTERASE Negative (Normal) UA - NITRITE Negative (Normal) URINE UROBILINGN CATHIE TIMED Normal mg/dL (Normal) UA - PROTEIN 30 mg/dL (Normal) UA - PH 6 (Abnormal) UA - BLOOD +++ (Abnormal) UA - SPECIFIC GRAVITY 1.025 (Normal) UA - KETONES Negative mg/dL (Normal) UA - BILIRUBIN Small (Normal) UA - GLUCOSE Negative (Normal) 1-Mno-678002:38 URINE ROCIO CULTURE-IDENTIFICATN Comments: PATIENT NOT FASTINGPERFORMED BY: [facility]6370 [facility] [id number] Information: SRC:UC (96955) Result 1 MUG (Normal) Comments: Mixed urogenital flora1,000 Colonies/mL Urine Culture,Comprehensive Final report (Normal) 6-Rjj-247194:22 Urinalysis, Office (25071) UA - LEUKOCYTE ESTERASE Negative (Normal) UA - NITRITE Negative (Normal) URINE UROBILINGN CATHIE TIMED 2 mg/dL (Normal) UA - PROTEIN Trace mg/dL (Normal) UA - PH 7 (Normal) UA - BLOOD Non Hemolyzed Moderate (Normal) UA - SPECIFIC GRAVITY 1.020 (Normal) UA - KETONES Negative mg/dL (Normal) UA - BILIRUBIN Negative (Normal) UA - GLUCOSE Negative (Normal) :54 HgA1C , Office (05986) HgA1C , Office 6.4 % (Normal) Range: 4.6 - 7.1 :53 Blood Glucose , Office (53977) Blood Glucose , Office 176 (Normal) :35 Blood Glucose , Office (55263) Comments: 136 Blood Glucose , Office 136 (Normal) :35 HgA1C , Office (04877) Comments: 6.4 HgA1C , Office 6.4 % (Normal) Range: 4.6 - 7.1 :49 CBC With Differential/Platelet Comments: PATIENT WAS FASTINGPERFORMED BY: GlobevestorPresbyterian HospitalVyqvvw6707 [facility] [id number] Immature Grans (Abs) 0.0 {x10E3/uL} (Normal) Range: 0.0-0.1 Immature Granulocytes 0 % (Normal) Baso (Absolute) 0.0 {x10E3/uL} (Normal) Range: 0.0-0.2 Eos (Absolute) 0.2 {x10E3/uL} (Normal) Range: 0.0-0.4 Monocytes(Absolute) 0.8 {x10E3/uL} (Normal) Range: 0.1-0.9 Lymphs (Absolute) 1.6 {x10E3/uL} (Normal) Range: 0.7-3.1 Neutrophils (Absolute) 3.6 {x10E3/uL} (Normal) Range: 1.4-7.0 Basos 1 % (Normal) Eos 3 % (Normal) Monocytes 13 % (Normal) Lymphs 26 % (Normal) Neutrophils 57 % (Normal) Platelets 171 {x10E3/uL} (Normal) Range: 150-379 RDW 12.8 % (Normal) Range: 12.3-15.4 MCHC 34.1 g/dL (Normal) Range: 31.5-35.7 MCH 31.3 pg (Normal) Range: 26.6-33.0 MCV 92 fL (Normal) Range: 79-97 Hematocrit 44.3 % (Normal) Range: 37.5-51.0 Hemoglobin 15.1 g/dL (Normal) Range: 12.6-17.7 RBC 4.82 {x10E6/uL} (Normal) Range: 4.14-5.80 WBC 6.3 {x10E3/uL} (Normal) Range: 3.4-10.8 :49 Comp. Metabolic Panel (14) Comments: PATIENT WAS FASTINGPERFORMED BY: LabCoPalisades Medical CenterAccmrn6979 [facility] [id number] ALT (SGPT) 22 [iU]/L (Normal) Range: 0-44 AST (SGOT) 16 [iU]/L (Normal) Range: 0-40 Alkaline Phosphatase, S 98 [iU]/L (Normal) Range: 39-117 Bilirubin, Total 0.6 mg/dL (Normal) Range: 0.0-1.2 A/G Ratio 1.5 (Normal) Range: 1.2-2.2 Globulin, Total 2.6 g/dL (Normal) Range: 1.5-4.5 Albumin, Serum 4.0 g/dL (Normal) Range: 3.5-5.5 Protein, Total, Serum 6.6 g/dL (Normal) Range: 6.0-8.5 Calcium, Serum 8.9 mg/dL (Normal) Range: 8.7-10.2 Carbon Dioxide, Total 27 mmol/L (Normal) Range: 18-29 Chloride, Serum 100 mmol/L (Normal) Range: 96-106 Potassium, Serum 4.6 mmol/L (Normal) Range: 3.5-5.2 Sodium, Serum 143 mmol/L (Normal) Range: 134-144 BUN/Creatinine Ratio 10 (Normal) Range: 9-20 eGFR If Africn Am 130 mL/min/1.73 (Normal) eGFR If NonAfricn Am 112 mL/min/1.73 (Normal) Creatinine, Serum 0.68 mg/dL (Abnormal) Range: 0.76-1.27 BUN 7 mg/dL (Normal) Range: 6-24 Glucose, Serum 152 mg/dL (Abnormal) Range: 65-99 95-Dvb-345811:49 Lipid Panel With LDL/HDL Comments: PATIENT WAS FASTINGPERFORMED BY: LabCo Lrikbu1197 [facility] [id number] Ratio LDL/HDL Ratio 1.7 {ratio_units} Range: 0.0-3.6 (Normal) Comments: LDL/HDL Ratio Men Women 1/2 Avg.Risk 1.0 1.5 Av g.Risk 3.6 3.2 2X Avg.Risk 6.2 5.0 3X Avg.Risk 8.0 6.1 LDL Cholesterol Calc 75 mg/dL (Normal) Range: 0-99 VLDL Cholesterol Leroy 68 mg/dL (Abnormal) Range: 5-40 HDL Cholesterol 44 mg/dL (Normal) Triglycerides 339 mg/dL (Abnormal) Range: 0-149 Cholesterol, Total 187 mg/dL (Normal) Range: 100-199 15-Mar-2017 TSH 0.864 {uIU/mL} (Normal) Comments: PATIENT WAS FASTINGPERFORMED BY: LANIE LabCo Ddwied4030 [facility] [id number] 11:49 Range: 0.450-4.500 78-Gbu-68791:07 Blood Glucose , Office (73297) Blood Glucose , Office 168 (Normal) Plan of Care Name Dates Details Instructions BMI 29.0-29.9,adult : Follow up in 3 months Indication: BMI 29.0-29.9,adult Diabetes type 2, controlled : Reviewed Lab Indication: Diabetes type 2, controlled Pulmonary sarcoidosis : Reviewed Diagnostic Tests Indication: Pulmonary sarcoidosis Headache : Reviewed Lab Indication: Headache Brain tumor : Reviewed Diagnostic Tests Indication: Brain tumor Pulmonary sarcoidosis : Reviewed Optical Scientist Letter Indication: Pulmonary sarcoidosis Hypertension : Reviewed Diagnostic Tests Indication: Hypertension Former smoker : Eprescribed prescriptions (G8553) Indication: Former smoker Abnormal TSH : Follow up in 2 weeks Indication: Abnormal TSH Diabetes type 2, controlled : Follow up in 2 weeks Indication: Diabetes type 2, controlled Former smoker : Eprescribed prescriptions (G8553) Indication: Former smoker Headache : Reviewed Lab Indication: Headache Brain tumor : Reviewed Lab Indication: Brain tumor Former smoker : Eprescribed prescriptions (G8553) Indication: Former smoker Leg pain, bilateral : Follow up if no improvement or if symptoms worsen Indication: Leg pain, bilateral Former smoker : Eprescribed prescriptions (G8553) Indication: Former smoker BMI 29.0-29.9,adult : Follow up if no improvement or if symptoms worsen Indication: BMI 29.0-29.9,adult Former smoker : Eprescribed prescriptions (G8553) Indication: Former smoker Syncope : Follow up in 3 months Indication: Syncope Diabetes type 2, controlled : Reviewed Lab Indication: Diabetes type 2, controlled Former smoker : Eprescribed prescriptions (G8553) Indication: Former smoker Vitamin D deficiency : Follow up in Mar 2018 after labs drawn Indication: Vitamin D deficiency Pulmonary sarcoidosis : Reviewed Optical Scientist Letter Indication: Pulmonary sarcoidosis Pulmonary sarcoidosis : Eprescribed prescriptions (G8553) Indication: Pulmonary sarcoidosis BMI 28.0-28.9,adult : Follow up in 6 weeks Indication: BMI 28.0-28.9,adult Diabetes type 2, controlled : Eprescribed prescriptions (G8553) Indication: Diabetes type 2, controlled BMI 28.0-28.9,adult : Follow up in 3 months Indication: BMI 28.0-28.9,adult Mediastinal adenopathy : Reviewed Optical Scientist Letter Indication: Mediastinal adenopathy Mediastinal adenopathy : Reviewed Diagnostic Tests Indication: Mediastinal adenopathy Mediastinal adenopathy : Reviewed Lab Indication: Mediastinal adenopathy Hematuria : Reviewed Optical Scientist Letter Indication: Hematuria Hematuria : Reviewed Lab Indication: Hematuria Diabetes type 2, controlled : Eprescribed prescriptions (G8553) Indication: Diabetes type 2, controlled Abnormal positron emission tomography (PET) scan : Reviewed Lab Indication: Abnormal positron emission tomography (PET) scan Abnormal positron emission tomography (PET) scan : Reviewed Diagnostic Tests Indication: Abnormal positron emission tomography (PET) scan Hematuria : Reviewed Lab Indication: Hematuria Hematuria : Reviewed Diagnostic Tests Indication: Hematuria Multiple lung nodules on CT : Reviewed Lab Indication: Multiple lung nodules on CT Multiple lung nodules on CT : Reviewed Diagnostic Tests Indication: Multiple lung nodules on CT Hematuria : Eprescribed prescriptions (G8553) Indication: Hematuria Multiple lung nodules on CT : Reviewed Diagnostic Tests Indication: Multiple lung nodules on CT Mediastinal adenopathy : Reviewed Diagnostic Tests Indication: Mediastinal adenopathy Hematuria : Follow up - Make appt after diagnostic tests Indication: Hematuria BMI 29.0-29.9,adult : Eprescribed prescriptions (G8553) Indication: BMI 29.0-29.9,adult Nonsmoker : Eprescribed prescriptions (G8553) Indication: Nonsmoker Kidney stone on left side : Follow up if no improvement or if symptoms worsen Indication: Kidney stone on left side Kidney stone on left side : Follow up - Make appt after diagnostic tests Indication: Kidney stone on left side Kidney stone on left side : Kidney Stones *: kidney stones Indication: Kidney stone on left side Kidney stone on left side : Reviewed Diagnostic Tests Indication: Kidney stone on left side Nonsmoker : Eprescribed prescriptions (G8553) Indication: Nonsmoker Lower back pain : Follow up if no improvement or if symptoms worsen Indication: Lower back pain Nonsmoker : Eprescribed prescriptions (G8553) Indication: Nonsmoker Nonsmoker : Follow up if no improvement or if symptoms worsen Indication: Nonsmoker UTI symptoms : Eprescribed prescriptions (G8553) Indication: UTI symptoms BMI 29.0-29.9,adult : Follow up in 3 months Indication: BMI 29.0-29.9,adult Diabetes type 2, controlled : Eprescribed prescriptions (G8553) Indication: Diabetes type 2, controlled Nonsmoker : Follow up in 3 months Indication: Nonsmoker Diabetes type 2, controlled : Reviewed Lab Indication: Diabetes type 2, controlled Hypertriglyceridemia : Reviewed Lab Indication: Hypertriglyceridemia Diabetes type 2, controlled : Eprescribed prescriptions (G8553) Indication: Diabetes type 2, controlled History of inguinal hernia : Follow up in 1 month Indication: History of inguinal hernia Hyperglycemia : Eprescribed prescriptions (G8553) Indication: Hyperglycemia Planned Observations Metabolic Panel, Comprehensive (64051)Indication: Kidney stones On: :25 Request Comments: Jun 2017 LIPID PANEL (99245)Indication: Hypertriglyceridemia On: :24 Request Comments: Jun 2017 fasting Metabolic Panel, Comprehensive (48664)Indication: Diabetes type 2, controlled On: :39 Request Lipid Panel (87870)Indication: Diabetes type 2, controlled On: :39 Request MICROALBUMIN: CREATININE RATIO (81822) AND (09845)Indication: Diabetes type 2, controlled On: :39 Request URINALYSIS (65687)Indication: Diabetes type 2, controlled On: :39 Request CBC, Platelets & Auto Diff (87983)Indication: Diabetes type 2, controlled On: :39 Request TSH (81055)Indication: Diabetes type 2, controlled On: :39 Request HgA1C , Office (89807)Indication: Diabetes type 2, controlled On: 10-Tzj-42122:07 Request Planned Encounters Medical; 3 Month FU - On: 24-Oct-2018 9:30 Comprehensive Internal Medicine Louann Alejandre CNP, CNP, Mary E Planned Procedures ELECTROCARDIOGRAM, COMPLETE (ECG) On: 11-Jul-2018 Intent (33850)By: Louann Alejandre CNP, CNP, Mary E Toradol Injection, 30 mg (J1885)By: On: 06-Jun-2018 Intent Sera Adrian Comments: wvd21317/2020Ldltd, IM30mg/mlMLONG Radiology - Lumbar SpineBy: Nguyễn, On: 06-Jun-2018 Intent Sera Toradol Injection, 30 mg (J1885)By: On: 03-Jun-2018 Intent Ciesa DIRECT CHILL CASTER, Corinna Ciesa DIRECT CHILL CASTER, Corinna PET ScanBy: Sera Adrian On: 14-Sep-2017 Intent Comments: * Providers fill out PET scan order form CT - Chest (IV Contrast Needed)By: On: 02-Sep-2017 Intent Sera Adrian Comments: 6.3mm Nodule Left Lung Base CT - Abdomen & Pelvis Stone ProtocolBy: On: 30-Aug-2017 Intent Sera Adrian Comments: STAT Toradol Injection, 30 mg (J1885)By: On: 27-Aug-2017 Intent Ciesa DIRECT CHILL CASTER, Corinna Ciesa DIRECT CHILL CASTER, Corinna Planned Medications INJECTION, KETOROLAC TROMETHAMINE, PER 15 MG Ordered: 27-Aug-2017 Pending Ciesa DIRECT CHILL CASTER, Corinna Ciesa DIRECT CHILL CASTER, Corinna INJECTION, KETOROLAC TROMETHAMINE, PER 15 MG Ordered: 03-Jun-2018 Pending Ciesa DIRECT CHILL CASTER, Corinna Ciesa DIRECT CHILL CASTER, Corinna INJECTION, KETOROLAC TROMETHAMINE, PER 15 MG Ordered: 06-Jun-2018 Pending Sera Adrian Instructions Name Dates Details Former smoker : How to access health information online Indication: Former smoker Former smoker : How to access health information online - Detail Indication: Former smoker Former smoker : Patient Instructions Indication: Former smoker Former smoker : How to access health information online Indication: Former smoker Former smoker : How to access health information online - Detail Indication: Former smoker Former smoker : Patient Instructions Indication: Former smoker Former smoker : How to access health information online Indication: Former smoker Former smoker : How to access health information online - Detail Indication: Former smoker Former smoker : Patient Instructions Indication: Former smoker Former smoker : How to access health information online Indication: Former smoker Former smoker : How to access health information online - Detail Indication: Former smoker Muscle spasms of both lower extremities : Patient Instructions Indication: Muscle spasms of both lower extremities Former smoker : How to access health information online Indication: Former smoker Former smoker : How to access health information online - Detail Indication: Former smoker Former smoker : Patient Instructions Indication: Former smoker Former smoker : How to access health information online Indication: Former smoker Former smoker : How to access health information online - Detail Indication: Former smoker Former smoker : Patient Instructions Indication: Former smoker Pulmonary sarcoidosis : How to access health information online Indication: Pulmonary sarcoidosis Pulmonary sarcoidosis : How to access health information online - Detail Indication: Pulmonary sarcoidosis Pulmonary sarcoidosis : Patient Instructions Indication: Pulmonary sarcoidosis Diabetes type 2, controlled : How to access health information online Indication: Diabetes type 2, controlled Diabetes type 2, controlled : How to access health information online - Detail Indication: Diabetes type 2, controlled BMI 28.0-28.9,adult : Patient Instructions Indication: BMI 28.0-28.9,adult Diabetes type 2, controlled : How to access health information online Indication: Diabetes type 2, controlled Diabetes type 2, controlled : How to access health information online - Detail Indication: Diabetes type 2, controlled Diabetes type 2, controlled : Patient Instructions Indication: Diabetes type 2, controlled Hematuria : How to access health information online Indication: Hematuria Hematuria : How to access health information online - Detail Indication: Hematuria Fatigue : Patient Instructions Indication: Fatigue BMI 29.0-29.9,adult : How to access health information online Indication: BMI 29.0-29.9,adult BMI 29.0-29.9,adult : How to access health information online - Detail Indication: BMI 29.0-29.9,adult Hematuria : Patient Instructions Indication: Hematuria Nonsmoker : How to access health information online Indication: Nonsmoker Nonsmoker : How to access health information online - Detail Indication: Nonsmoker Nonsmoker : Patient Instructions Indication: Nonsmoker Nonsmoker : How to access health information online Indication: Nonsmoker Nonsmoker : How to access health information online - Detail Indication: Nonsmoker Kidney stone on left side : Patient Instructions Indication: Kidney stone on left side Nonsmoker : How to access health information online Indication: Nonsmoker Nonsmoker : How to access health information online - Detail Indication: Nonsmoker Hematuria : Patient Instructions Indication: Hematuria UTI symptoms : How to access health information online Indication: UTI symptoms UTI symptoms : How to access health information online - Detail Indication: UTI symptoms UTI symptoms : Patient Instructions Indication: UTI symptoms Diabetes type 2, controlled : How to access health information online Indication: Diabetes type 2, controlled Diabetes type 2, controlled : How to access health information online - Detail Indication: Diabetes type 2, controlled BMI 29.0-29.9,adult : Patient Instructions Indication: BMI 29.0-29.9,adult Diabetes type 2, controlled : How to access health information online Indication: Diabetes type 2, controlled Diabetes type 2, controlled : How to access health information online - Detail Indication: Diabetes type 2, controlled Diabetes type 2, controlled : Patient Instructions Indication: Diabetes type 2, controlled Diabetes type 2, controlled : Patient Instructions Indication: Diabetes type 2, controlled Hyperglycemia : How to access health information online Indication: Hyperglycemia Hyperglycemia : How to access health information online - Detail Indication: Hyperglycemia Hyperglycemia : Patient Instructions Indication: Hyperglycemia Encounters Office Visit On: 25-Jul-2018 10:25 Encounter Reason: Follow up tests - Diagnostic tests include other (labs). Date: (07/11). Note for Discuss procedure results: still having headaches daily this did not go away. Surgical site has stopped draining. Does End: 25-Jul-2018 11:06 not take anything for pain. Not working., [ADDITIONAL REASON] Headache - Note for Headache: Has on going headache and recent elevated BPHas dull constant pain around eyes , [ADDITIONAL REASON] Hypertension - Note for Hypertension: Hypertension is present, improving with BP med , [ADDITIONAL REASON] Diabetes Type II, Follow Up - Note for Follow up for diabetes type II: Diabete s borderline control. Taking metformin and watching dies Encounter Diagnosis: Former smoker, BMI 29.0-29.9,adult, Hypertension, Pulmonary sarcoidosis, Brain tumor, Diabetes type 2, controlled, Headache [facility] Office Visit On: 11-Jul-2018 9:04 Encounter Reason: Follow up for chronic medical issues - The patient feels well with no complaints, has good energy level and is sleeping well. Patient has been compliant (sometimes forgets to take meds) with instruction End: 11-Jul-2018 10:26 s. Current medication use: no side effects and compliant with dosing regimen. Patient sleeps 6 (6-7 broken) hours per night. Nutrition: inappropriate diet. Note for Follow up for chronic medical issues: blood sugars 170's after pt eats, [ADDITIONAL REASON] Headache - Note for Headache: Has on going headache and recent elevated BP Encounter Diagnosis: Former smoker, BMI 29.0-29.9,adult, Influenza vaccination declined (Renamed from Refused influenza vaccine), Diabetes type 2, controlled, Hypertriglyceridemia, Brain tumor, Headache, Blurred vision, Vitamin D deficiency, Pulmonary sarcoidosis, Abnormal TSH, Hypertension [facility] Office Visit On: 08-Jul-2018 10:53 Encounter Reason: Forms - The patient presents to the office to be evaluate for disability (see scanned in form filled out). Note for Forms: Pt has been off work since May 13, 2018 Surgery for May 18 2018 for brain t End: 08-Jul-2018 12:18 umor. Multiple problems with walking and unable to walk. Ongoing headache and visaual changes., [ADDITIONAL REASON] Headache - Note for Headache: Headache unable to resolve after brain surgery Encounter Diagnosis: Former smoker, BMI 30.0-30.9,adult, Headache, Brain tumor [facility] Office Visit On: 06-Jun-2018 9:35 Encounter Reason: Follow up ER - Reason for hospitalization note: (dog bite/scratch)., [ADDITIONAL REASON] Follow up acute care visit - The patient does not feel well. Note for Follow up End: 06-Jun-2018 11:36 acute care visit: Pt was here 4 days ago and saw Louann for leg pain. Still having bilateral leg pain starting at back and going down to knee. No numbness or tingling, no shooting pain. No bruising or r edness. Pt slipped about a week ago but didnt fall-since his legs have been bothering him. Had tordol injection and that helped for a few hours. Tyenol doesn't help with the pain. Was in the ER over the weekend for a dog bite-on augmentin. No drainage, redness or increased warmth from dog bites. Encounter Diagnosis: BMI 29.0-29.9,adult, Former smoker, Leg pain, bilateral, Muscle spasms of both lower extremities, Dog bite of arm, right, sequela [facility] Office Visit On: 03-Jun-2018 11:36 Encounter Reason: Leg Pain - This condition occurred following a specific injury. Symptoms include leg pain. The pain is located in the left anterior upper leg and in the right anterior upper leg. Onset was 2 day(s) ago.Encounter Diagnosis: End: 03-Jun-2018 12:24 Former smoker, BMI 29.0-29.9,adult, Meningioma, Fall, Leg pain, bilateral, Pulmonary sarcoidosis [facility] Office Visit On: 04-Apr-2018 9:46 Encounter Reason: Follow up for chronic medical issues - The patient feels well with minor complaints, has good energy level (some days good and some days not) and is sleeping poorly (some days better than others). Patie End: 04-Apr-2018 10:43 nt has been compliant with instructions. Current medication use: no side effects. Patient sleeps 5 hours per night. Nutrition: balanced diet. fasting blood sugars : (between 120-130 usually)., [ADDITIONAL REASON] Earache - Note for Earache: Thought he had ear ache but at work, was very dizzi and had to go home, Then went to ER in [place], they looked in ears. Went to [place] [facility] h ad ear cleaned out, had hearing loss. Went to ENT, had MRI. Found an abnormal result. Has had ongoing syncope with difficult walking. Nausea and vomiting. Having to lay down to make symptoms go away. Encounter Diagnosis: Former smoker, Diabetes type 2, controlled, BMI 29.0-29.9,adult, S/P cataract surgery, left, Pulmonary sarcoidosis, Insomnia, persistent, Abnormal CT of brain, Hypertriglyceridemia, Abnormal TSH, Vitamin D deficiency, Syncope [facility] Office Visit On: 13-Dec-2017 7:49 Encounter Reason: Follow up tests - Diagnostic tests include other (labs). Note for Discuss procedure results: Pulmonary wants him to have more breathing. [place] better, End: 13-Dec-2017 10:42 [ADDITIONAL REASON] Cataract - Note for Cataract(s): Having cataract surgery next Wednesday at [facility] Encounter Diagnosis: BMI 28.0-28.9,adult, Former smoker, Pulmonary sarcoidosis, Enlarged prostate, Abnormal TSH, Hypertriglyceridemia, Vitamin D deficiency [facility] Annotation/Addendum On: 11-Nov-2017 7:17 Encounter Diagnosis: Pulmonary sarcoidosis, Blurred vision, Insomnia End: 11-Nov-2017 7:24 [facility] Office Visit On: 05-Nov-2017 9:57 Encounter Reason: Follow up tests - Diagnostic tests include other (labs).Encounter Diagnosis: Former smoker, Diabetes type 2, controlled, BMI 28.0-28.9,adult, Vitamin D deficiency, Mediastinal adenopathy, Mixed dyslipidemia, Abnormal TSH End: 05-Nov-2017 10:56 [facility] Annotation/Addendum On: 03-Nov-2017 12:18 [facility] End: 03-Nov-2017 13:06 Annotation/Addendum On: 01-Nov-2017 11:44 Encounter Diagnosis: Unspecified Diagnosis End: 01-Nov-2017 11:49 [facility] Office Visit On: 01-Nov-2017 9:39 Encounter Reason: Follow up for chronic medical issues - The patient feels well with minor complaints, has good energy level (some days good and some days not) and is sleeping poorly (some days better than others). Patie End: 01-Nov-2017 10:32 nt has been compliant with instructions. Current medication use: no side effects. Patient sleeps 4 (3-5) hours per night. Nutrition: balanced diet. fasting blood sugars : (between 140-160).Encounter Diagnosis: Diabetes type 2, controlled, Former smoker, BMI 28.0-28.9,adult, Mediastinal adenopathy, Hematuria [facility] Office Visit On: 04-Oct-2017 9:38 Encounter Reason: Follow up tests - Diagnostic tests include CT scan (PET). Note for Discuss procedure results: Here to review results, [ADDITIONAL REASON] Hematuria - Note for Hematuria: Ongoing hematuria at the beginning of micuturi End: 04-Oct-2017 10:34 on and end like [employer] Encounter Diagnosis: Hematuria, Multiple lung nodules on CT, Former smoker, BMI 28.0-28.9,adult, Abnormal positron emission tomography (PET) scan, Mediastinal adenopathy, Fatigue [facility] Office Visit On: 16-Sep-2017 9:04 Encounter Reason: Follow up tests - Date: (CT). Note for Discuss procedure results: Still having blood in urine-not all the time, but does have times where blood at the end of urinating, sometimes has blood at beginnin End: 16-Sep-2017 13:[address] thru urinating. Still having lower abd pain, and right flank pain- sometimes the pain is both flanks and radiating around to abd. Pt states there was also blood with ejaculation over the last month. No change in bowel habits-no blood in stool, no constipation or diarrhea. Weight loss-10 pounds within 5-6 months-not trying-slight change in appetite. Lost 5 pounds over the last 2 weeks w ithout trying.No coughing, SOB.Night sweats over the last couple of days.Sleeps about 3-4 hours a night.Smokes marijuana depending on how much he has but twice in the last week. eats like crazy afterwards.-No other drug use.Sees Urology Sep.27. Encounter Diagnosis: Mediastinal adenopathy, Multiple lung nodules on CT, BMI 29.0- 29.9,adult, Lower abdominal pain, Hepatomegaly, Hematuria, Ejaculation blood [facility] Phone Encounter On: 14-Sep-2017 9:10 Encounter Diagnosis: Multiple lung nodules on CT, Mediastinal adenopathy, BMI 29.0- 29.9,adult, Nonsmoker End: 14-Sep-2017 9:48 [facility] Office Visit On: 02-Sep-2017 9:35 Encounter Reason: Follow up tests - Date: (CT). Note for Discuss procedure results: Here for followup of CT results. Still having blood in urine-but not as bad as it was on Wednesday. Still having lower back pain and abd End: 02-Sep-2017 10:40 pain. Sees Kimberly on Wednesday09/06/17.Encounter Diagnosis: BMI 29.0-29.9,adult, Nonsmoker, Enlarged prostate, Hepatomegaly, Nodule of left lung, Kidney stone on left side [facility] Office Visit On: 30-Aug-2017 13:47 Encounter Reason: Hematuria - Onset was 1 week(s) ago. Note for Hematuria: Symptoms started about 6 days ago-was seen by Louann on 08/27/16-was given tordol IM and PO and took additional ibuprofen two 800mg twice. Pt had b End: 30-Aug-2017 14:33 ack pain when was seen on 08/27/17. Now pt has dull ache in lower abd, and ache in lower back. History of kidney stones. Blood in urine is worse-urine is red and urgent. No pain with urination, frequency. No blood in stool.Encounter Diagnosis: BMI 29.0-29.9,adult, Hematuria, Nonsmoker, Lower abdominal pain, Lower back pain, History of kidney stones [facility] Office Visit On: 27-Aug-2017 12:21 Encounter Reason: Hematuria - Symptoms include [place] colored urine. Onset was 3 day(s) ago. The symptoms occur intermittently. The patient describes this as worsening. Previous presentation included hematuria. Note for H End: 27-Aug-2017 12:54 ematuria: having hematuria at end of each voiding no pain in back or abdEncounter Diagnosis: UTI symptoms, BMI 29.0-29.9,adult, Nonsmoker, Hematuria [facility] Office Visit On: 02-Aug-2017 9:52 Encounter Reason: Follow up for chronic medical issues - The patient feels well with minor complaints. Patient has been compliant with instructions. Note for Follow up for chronic medical issues: BS 130's in am. over 2 End: 02-Aug-2017 10:51 00 a couple. Quit taking it because of diarrha,Encounter Diagnosis: Diabetes type 2, controlled, Nonsmoker, BMI 29.0-29.9,adult, Hypertriglyceridemia, Hearing deficit [facility] Office Visit On: 12-Apr-2017 7:38 Encounter Reason: Follow up tests - Diagnostic tests include other (labs 03/15/17). Note for Discuss procedure results: new diabetic taking BS range 93 to 349, End: 12-Apr-2017 9:29 [ADDITIONAL REASON] Follow up for diabetes/glucose intolerance - The patient feels well with minor complaints (left knee pain). Patient has been compliant with instructions. Current medication use: exp eriencing side effects (GI upset with Metformin.). fasting blood sugars : (139 this morning. Highest was 349 because I had pancakes and syrup.). Note for Follow up for diabetes/glucose intolerance: We nt to1 alternate with 2 daily everyother day. Went to diabetic education class at hospital. 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 General health: has decreased energy level and is sleeping poorly. The patient's appetite is normal. Exercises 0 days per week. Sleeps on ave End: 15-Mar-2017 9:45 rage 4 hours per night. Normal bowel and bladder habits. There are no current emotional problems.Encounter Diagnosis: Nonsmoker, BMI 30.0-30.9,adult, Hyperglycemia, Diabetes type 2, controlled, Insomnia, Hearing loss, bilateral, Status post cholecystectomy, Kidney stones, GERD (gastroesophageal reflux disease), History of inguinal hernia [facility] Payers Tran Slaughter; karen guarantor
--- OUTSIDE RECORDS SUMMARY | 2018-11-14 20:17 | XMS RPT_ITS | Continuity of Care Document ---
:1965 Author Organization [facility] Address [address] [place] [address] Phone Care Team Providers Name Role Phone [...] V85.30) Status: Active Brain tumor (D49.6, 239.6) Status: Active Diabetes type 2, controlled (E11.9, 250.00) Comments: , eats at midnight, sleeps only 3 hrs then more or less, will change to metformin at night, seeing tobacco prevention health educator at hospital in Sep 2017 Status: Active [...] Ongoing headache after brain surgery go thru [facility] Status: Active Hearing deficit (H91.90, V41.2) Comments: [...] Status: Active Hyperglycemia (R73.9, 790.29) Status: Active Hypertriglyceridemia (E78.1, 272.1) Comments: on livalo, giving samples repeat in lipid Status: Active Insomnia (G47.00, 780.52) Comments: Per Dr. Vasyl catherine sleep study Status: Active Insomnia, persistent (G47.00, [...] Brain tumor removed 05-18 discharged [facility] Brain surgery benign Status: Active Mixed dyslipidemia [...] from prednisone per referal letter ()Seeing pulm and ENT Status: Active S/P cataract surgery, left (Z98.42, V45.61) Comments: And Right Status: Active Status post cholecystectomy (Z90.49, V45.79) Comments: Age 21 at [place] Status: Active Syncope (R55, 780.2) Comments: seen in ER, work up in progress, ent, Mri brain etc Status: Active Unspecified Diagnosis Status: Active UTI symptoms (R39.9, 788.99) Status: Active Vitamin D deficiency (E55.9, 268.9) Comments: was 13.5 Status: Active Medications Name Dates Details Livalo 2 MG Oral Tablet 1 (one) Tablet Tablet qhs for 0 days Quantity: 42 {Tablet} Refills: 0 Ordered:13-Dec-2017 Abbe Stovall LPNa Start : 05-Nov-2017 Active MetFORMIN HCl ER 500 MG Oral Tablet Extended Release 24 Hour 1 (one) Tablet Tablet qhs for 0 days Quantity: 30 {Tablet} Refills: 6 Ordered:01-Nov-2017 Srikatnh Marx Start : 01-Nov-2017 Active ReliOn Confirm Glucose Monitor w/Device Kit 1 (one) Kit Kit once for 0 days Quantity: 1 {Applicator} Refills: 0 Ordered:15-Mar-2017 Paulette Stovall LPN Start : 15-Mar-2017 Active ReliOn Confirm/micro Test In Vitro Strip 1 (one) Strip Strip test twice daily for 0 days Quantity: 60 {Strip} Refills: 6 Ordered:15-Mar-2017 Paulette Stovall LPN Start : 15-Mar-2017 Active ReliOn Lancets Ultra-Thin 30G Miscellaneous 1 (one) Misc Misc twice daily for 0 days Quantity: 100 {Unspecified} Refills: 3 Ordered:15-Mar-2017 Paulette Stovall LPN Start : 15-Mar-2017 Active Tylenol 325 MG Oral Capsule 1 (one) Capsule Capsule q6 hrs for 0 days Quantity: 30 {Capsule} Refills: 0 Ordered:06-Jun-2018 Nicole Watson LPN Start : 03-Jun-2018 Active Tylenol 500 MG Oral Capsule k6egcau (500 MG) Active Vitamin D3 Maximum Strength 5000 UNIT Oral Capsule 1 (one) Capsule Capsule daily for 0 days Quantity: 30 {Capsule} Refills: 0 Ordered:13-Dec-2017 Paulette Stovall LPN Start : 05-Nov-2017 Active Cyclobenzaprine HCl 10 [...] days Quantity: 30 {Tablet} Refills: 0 Ordered:30-Aug-2017 Nicole Watson LPN Start : 15-Mar-2017 End : 30-Aug-2017 Inactive [...] 4 Views Result: Comments: See Note; NOTES: [facility] Imaging Services [address] [place] [address] L/S Spine Min 4 Views MR#: [id number] Acct: [id number] Name: YOLY SLAUGHTER Rep #: [id number] : 1965 M 52 From: Jose Alcantara DO PCP: Louann Alejandre NP Status: REG CLI Study: L/S Spine Min 4 Views Date of Exam: 06/06/18 Exam# [id number] Ordering Dr: Sera Adrian ESL TUTOR-C STUDY: X-RAY - CRISTINA MBAR SPINE REASON [...] , CC: Louann Alejandre NP; GUERLINE Adrian Aerotriangulation Specialist: Signed 03-Jun-2018 Emergency Department Summary Result: Comments: See Note; NOTES: [facility] Medical Records Department [address] [place] [address] Emergency Department Summary 06/03/181915 MR#: [id number] Acct: [id number] Name: YOLY SLAUGHTER Rep #: [id number] : 1965 52 From: Emily Perez MD [...] Treatment Plan: [] Disposition: Discharge Impression: Dog diane ites to right hand/forearm This note was generated with [employer] software. It may contain incorrect words, spelling, and punctuation that were not noted in review of the chart prior to signin g ED Disposition - Plan for ED Patient: Chief Complaint: Bite Referrals: Louann Alejandre, ESL TUTOR-C [Primary Care Provider] - What to do if you have Problems For any increased pain, shortness of breath, bl eeding, nausea or vomiting, chest pain, or any unexpected problems, contact your Primary Care Provider. Call [facility] ([phone]) or report to the closest Emergency Room. Call 911 if necessar y. 06/03/182148 <Electronically signed by Emily Perez MD> Date Emily Perez MD Cosigner Signature (If Indicated): Date CC: Louann Alejandre NP 03-Jun-2018 Discharge Instruction Result: Comments: See Note; NOTES: [facility] Medical Records Department [address] [place] [address] Discharge Instruction 06/03/188 MR#: [id number] Acct: [id number] Name: YOLY SLAUGHTER Rep #: [id number] : 1965 52 From: Emily Perez MD PCP: Louann Alejandre NP Status: REG ER ED Disposition - Plan for ED Patient: Disposition: Home or Assisted Living Chief Complaint: Bi te Instructions: ED Bite Dog Prescriptions: Amox/Clavulanate Tablet [Augmentin Tablet] 875 mg PO Q12H #20 tablet Referrals: Louann Alejandre, ESL TUTOR-C [Primary Care Provider] - 5-7 Days What to do if you have Problems For any increased pain, shortness of breath, bleeding, nausea or vomiting, chest pain, or any unexpected problems, contact your Primary Care Provider. Call [facility] ([phone]) or r eport to the closest Emergency Room. Call 911 if necessary. 06/03/181918 <Electronically signed by Emily Perez MD> Date Emily rea MD Cosigner Signature (If Indicated): Date CC: Louann Alejandre NP 03-Jun-2018 Forearm 2 Views Result: Comments: See Note; NOTES: [facility] Imaging Services [address] [place] [address] Forearm 2 Views MR#: [id number] Acct: [id number] Name: YOLY SLAUGHTER Rep #: [id number] DO B: 1965 M 52 From: Sarah Sow MD PCP: Louann Alejandre NP Status: PRE ER Study: Forearm 2 Views Date of Exam: 06/03/18 Exam# [id number] Ordering Dr: Emily Perez MD STUDY: X-RAY [...] CC: Louann Alejandre NP; Emily Perez MD Aerotriangulation Specialist: Signed 03-Jun-2018 Hand Min 3 Views Result: Comments: See Note; NOTES: [facility] Imaging Services [address] [place] [address] Hand Min 3 Views MR#: [id number] Acct: [id number] Name: YOLY SLAUGHTER Rep #: [id number] D OB: 1965 M 52 From: Carol Mott MD PCP: Louann Alejandre NP Status: REG ER Study: Hand Min 3 Views Date of Exam: 06/03/18 Exam# [id number] Ordering Dr: Emily Perez MD STUDY: X-RAY [...] CC: Louann Alejandre NP; Emily Perez MD Aerotriangulation Specialist: Signed 09-May-2018 Pulmonary Visit Report Result: Comments: See Note; NOTES: [facility] [address] [place] [address] OFFICE VISIT Date of Service: 05/09/18 MR#: [id number] Acct: [id number] Name: YOLY HAGEN Jay Rep #: [id number] : 1965 Provider: Jazzy Rey Age/Sex: 52/M Location: [facility] Status: Signed Assessment AND Plan 1. Pulmonary [...] months. Plan Detail Follow Up 6 Months ([facility]) HPI 3 M FU: Chief [...] PO QDAY tab 10/05/17 [History Confirmed 05/09/18] [facility] Medical History (Reviewed @ 14:12 by Jazzy [...] D49.6 05/09/18 1419 <Electronically signed by Jazzy ALCANTARAC> Date Jazzy CUNHA Cosigner Signature: Date (if applicable) CC: Louann Alejandre NP 14-Mar-2018 Brain W/WO Contrast Result: Comments: See Note; NOTES: [facility] Imaging Services [address] [place] [address] Brain W/WO Contrast MR#: [id number] Acct: [id number] Name: YOLY SLAUGHTER Rep #: [id number] : 1965 M 52 From: Rosario Choudhury MD PCP: Louann Alejandre NP Status: REG CLI Study: Brain W/WO Contrast Date of Exam: 03/14/18 Exam# [id number] Ordering Dr: Rogerio Velázquez MD STUDY: MRI [...] at 14:01 EDT Tel , Service support [phone], CC: Louann Alejandre NP; Venancio Velázquez MD Aerotriangulation Specialist: Signed 03-Mar-2018 Pulmonary Function Report Comp Result: Comments: See Note; NOTES: [facility] Pulmonary Services/Neurology [address] [place] [address] MR#: [id number] Acct: [id number] Name: KASANDRAYOLY Jay Rep #: [id number] : 0 1965 52 From: Wilder Fallon MD Referring Dr: Wilder Fallon MD Status: REG CLI Ordering Dr: Date: Location: [facility] Sex: M C COMPLETE PULMONARY FUNCTION TEST INTERPRETATION Brief HPI: Patient is a [age] year old male, currently under the care of myself, who presents to [facility] for complete pulmonary function tests secondary [...] MD Date Dictated: 03/03/18 1130 Date Transcribed: 03/03/181129 Aerotriangulation Specialist: DARLENE Signed 10-Feb-2018 Downtime Report Result: Comments: See Note; NOTES: [facility] Medical Records Department [address] [place] [address] Downtime Report MR#: [id number] Acct: [id number] Name: KASANDRAYOLY Jay Rep #: [id number] : 1965 52 From: Zac Gonzalez PCP: Louann Alejandre NP Status: REG CLI This patient was seen during an EMR downtime January 24, 2018 - January 31, 2018. This patient may have a combination of pa per and electronic documentation or all paper documentation. All documentation is viewable within the e-chart portion of [facility] for each patient visit. 09-Feb-2018 Pulmonary Visit Report Result: Comments: See Note; NOTES: [facility] [place] [address] [place] [address] OFFICE VISIT Date of Service: 02/09/18 MR#: [id number] Acct: [id number] Name: JOSE MIGUELYOLY ABDI Rep #: [id number] : 1965 Provider: Wilder Fallon MD Age/Sex: 52/M Location: [facility].PMW Status: Signed Assessment AND Plan 1. Sarcoidosis [...] the possibility of obstructive sleep apnea patrick ng to patient's current situation, but he is refusing any workup at this time. Sleep study in the future if patient is agreeable. Plan Detail Follow Up 3 Months ([facility]) HPI 3 M FU: Chief Complaint: F ollow-up test results Details: Patient is a 52-year-old male, currently in the care of Louann Joseemersonkarne, who presents for evaluation secondary to recent [...] PO QDAY tab 10/05/17 [History Confirmed 02/09/18] [facility] Medical History (Reviewed 02/09/18 @ 07:19 b galina Lemon) Ejaculation blood (Acute) Hematuria (Acute) Hepatomegaly [...] Date (if applicable) CC: Louann Alejandre NP 26-Jan-2018 Chest WITH Contrast Result: Comments: See Note; NOTES: [facility] Imaging Services [address] [place] [address] Chest WITH Contrast MR#: [id number] Acct: [id number] Name: YOLY SLAUGHTER Rep #: [id number] : 1965 M 52 From: Corey Fofana MD PCP: Louann Alejandre NP Status: REG CLI Study: Chest WITH Contrast Date of Exam: 01/24/18 Exam# [id number] Ordering Dr: Wilder Fallon MD STUDY: CT [...] Tel , Service support , CC: Louann Fallon MD Aerotriangulation Specialist: Signed 10-Nov-2017 Pulmonary Visit Report Result: Comments: See Note; NOTES: [facility] [place] [address] [place] [address] OFFICE VISIT Date of Service: 11/09/17 MR#: [id number] Acct: [id number] Name: YOLY HAGEN Rep #: [id number] : 1965 Provider: Wilder Fallon MD Age/Sex: 52/M Location: [facility].PMW Status: Signed Assessment AND Plan 1. Sarcoidosis [...] states that he has not seen the vat tender as recommended by his diabetes physician. Patient [...] lymph [facility] All showed lymphocytes [...] PO QDAY tab 10/05/17 [History Confirmed 11/09/17] PFSH Medical History Ejaculation blood (Acute) Hematuria (Acute) [...] back pain, neck pain or other Skin/Breast Skin/[place] st: Negative dry skin, itching, rash, unusual [...] Cosigner Signature: Date (if applicable) CC: Louann Hill MORALES 29-Oct-2017 Operative Report Result: Comments: See Note; NOTES: [facility] Medical Records Department [address] [facility] [place] [address] Operative Report 10/29/17 1340 MR#: [id number] Acct: [id number] Name: LUCY SLUAGHTER Rep #: [id number] : 1965 52 From: Yaya Kaur DO PCP: Hill MORALES Louann Status: REG [facility] Location: [place] [address] Operative Report Date of Procedure: 10/29/17 BRONCHOSCOPY (EBUS) PROCEDURE REPO RT DATE OF SERVICE: October 29, 2017 BRIEF HISTORY: The patient is a 52-year-old male who follows with Dr. Fallon on an outpatient basis who is referred to ms for evaluation of mediastinal and hilar lymp [...] Mediastinal and hilar lymphadenopathy P HYSICIAN: Yaya Kaur DO ANESTHETIC: This procedure was completed under the [...] 11L (left hilar), 10R (right hilar) 3. Melvin ples will be sent for cytology, flow cytometry, AFB and cultures. RECOMMENDATIONS: 1. Await finalized pathology results 2. Follow up with the pulmonary medicine clinic as scheduled Code Visit 9xxxx: Other Procedure See Report 10/29/17 1413 <Electronically signed by Yaya Kaur DO> Date Yaya Kaur DO CC: Louann Alejandre NP; Yaya Kaur D.O. Signed 07-Oct-2017 Pulmonary Visit Report Result: Comments: See Note; NOTES: [facility] [address] [place] [address] OFFICE VISIT Date of Service: 10/06/17 MR#: [id number] Acct: [id number] Name: YOLY HAGEN Rep #: [id number] : 1965 Provider: Wilder Fallon MD Age/Sex: 52/M Location: [facility].PMW Status: Signed with Addenda ADDENDUM by Wilder [...] Date Wilder Fallon MD cc: Louann Alejandre ESL TUTOR * Signed Assessment AND Plan 1. Dyspnea [...] most appropriate first step. Will refer to [facility] surgery. If unable to obtain biopsy [...] Other Orders Orders: Follow Up 6 Weeks ([facility]) MARICRUZ alejandre referral: Chief Complaint: Abnormal imaging [...] 10/06/17 Weight: 79.379 kg Intake Visit Reasons: ESL TUTOR ciesa referral Accompanied by: Self Allergies No [...] (min) 65 Greater than 50% i n hkva-kt-fwsr conversation discussing situation. Multiple phone calls 10/07/17 0540 <Electronically signed by Wilder Fallon MD> Date Giselle Fallon MD Cosigner Signature: Date (if applicable) CC: Louann Alejandre ESL TUTOR 07-Oct-2017 Pulmonary Visit Report Result: Comments: See Note; NOTES: [facility] [place] [address] [place] [address] OFFICE VISIT Date of Service: 10/06/17 MR#: [id number] Acct: [id number] Name: YOLY HAGEN Rep #: [id number] : 1965 Provider: Wilder Fallon MD Age/Sex: 52/M Location: [facility].PMW Status: Signed Assessment AND Plan 1. Dyspnea [...] am unsure if this is because of rosalinein g the PET findings. Full lymph node resection would be more diagnostic of lymphoma is found. General surgery consultation for supraclavicular node removal Orders Orders: Plan Detail Other Orders Orde rs: Follow Up 6 Weeks ([facility]) HPI CARMEN alejandre referral: Chief Complaint: Abnormal imaging Details: Patient is a 52-year-old male, currently in the care of Louann Hill, who presents for evaluation secondary to abnormal chest imaging. Patient reports that he was of his usual self and then started to have hematuria following sexual intercourse. This did persist and patient presented to his primary care phys valdo for workup. Patient has had multiple interventions [...] 10/06/17 Weight: 79.379 kg Intake Visit Reasons: CARMEN alejandre referral Accompanied by: Self Allergies No Known Allergies Allergy (Verified 10/06/17 06:50) Medications metformin 500 mg tablet 500 mg PO QDAY tab 10/05/17 [History Confirmed 10/06/17] [facility] Medical History (Review ed 10/06/17 @ 06:51 [...] Spent (min) 65 Greater than 50% in imzr-dy-keww conversation discussing situation. Multiple phone calls 10/07/17 0540 <Electronically signed by Wilder Fallon MD> Date Wilder Fallon MD Cosigner Signature: Date (if applicable) CC: Louann Alejandre NP 2-Sep-2017 PET/CT Tumor Base -Thigh Init Result: Comments: See Note; NOTES: [facility] Imaging Services [address] [place] [address] PET/CT Tumor Base -Thigh Init MR#: [id number] Acct: [id number] Name: YOLY SLAUGHTER Rep # : [id number] : 1965 M 52 From: Carlos Yadav DO PCP: Louann Alejandre NP Status: REG CLI Study: PET/CT Tumor Base -Thigh Init Date of Exam: 09/27/17 Exam# [id number] Ordering Dr: Sera Adrian ESL TUTOR-C EXAMINATION: FDG PET CT INDICATIONS: A 52-year-old [...] density on review of CT of the dom dated 09/27/17 is 15.2 mm (AP). 3. [...] Journal of Clinical Oncology 16 :2142, 1998. Monet et al, Annals of Internal Medicine, 138:724, 2003). 2. Enhanced glucose concentration observed in the left mid abdominal retroperitoneum and right upper abdomen, aliza hepatis corresp onding to soft tissue lymph nodes, lymphadenopathy fulfills quantitative criteria for viable neoplasm. 3. The increase in glucose concentration visualized in the right anterior neck, supraclavicular reg ion fulfills quantitative criteria for viable neoplasm. Electronic Signature Carlos Black, D.O. Electronically Signed: Carlos Yadav DO at 22:59 EST Tel , Service support [phone], CC: Louann Alejandre NP; ESL TUTOR-C Sera Adrian Aerotriangulation Specialist: Signed 13-Sep-2017 Chest WITH Contrast Result: Comments: See Note; NOTES: [facility] Imaging Services [address] [place] [address] Chest WITH Contrast MR#: [id number] Acct: [id number] Name: YOLY SLAUGHTER Rep #: [id number] : 1965 M 52 From: Mamadou Cisco CANO PCP: Louann Alejandre NP Status: REG CLI Study: Chest WITH Contrast Date of Exam: 09/13/17 Exam# [id number] Ordering Dr: Sera Adrian ESL TUTOR-C STUDY: CT CHEST WITH CONTRAST REASON FOR [...] 09/14/2017 09:24:41 (ET). CC: Louann Alejandre NP; ESL TUTOR-Henny Adrian Aerotriangulation Specialist: Signed 30-Aug-2017 Abdomen/Pelvis without Cont Result: Comments: See Note; NOTES: [facility] Imaging Services [address] [place] [address] Abdomen/Pelvis without Cont MR#: [id number] Acct: [id number] Name: YOLY SLAUGHTER Rep #: [id number] : 1965 M 51 From: Jose Alcantara DO PCP: Louann Alejandre NP Status: REG CLI Study: Abdomen/Pelvis without Cont Date of Exam: 08/30/17 Exam# [id number] Ordering Dr: Sera Adrian NP-C STUD Y: CT ABDOMEN AND PELVIS WITHOUT [...] , CC: Louann Alejandre NP; GUERLINE Adrian Aerotriangulation Specialist: Signed 17-May-2017 Sinus/Facial Bone Result: Comments: See Note; NOTES: [facility] Imaging Services [address] [place] [address] Sinus/Facial Bone MR#: [id number] Acct: [id number] Name: YOLY SLAUGHTER Rep #: [id number] : 1965 M 51 From: Craig Jackson MD PCP: Louann Alejandre Status: REG CLI Study: Sinus/Facial Bone Date of Exam: 05/17/17 Exam# [id number] Ordering Dr: Rogerio Velázquez MD STUDY: CT [...] of the nasal septum. Electronically Signed: Craig Jcakson MD at 7:56 EDT , Service support , CC: Louann Alejandre; Venancio Velázquez MD Aerotriangulation Specialist: Signed Family History Unknown Family Member Name Dates Details Father Comments: Diabetes Status: Active Social History Name Dates Details Alcohol use: Occasional alcohol use. Status: Active Drug Use Comments: Marijuana Status: Active Living Situation: Lives alone. Status: Active Tobacco use: Never smoker. Status: Active Smoking Status Name Dates Details Never smoker Vital Signs Date Test Result Details :55 Temperature 98.1 f Comments: Method: Temporal Pulse [...] 1.92 m2 Results Date Description Value Details 65-Mxy-419927:16 CALCIFEDIOL (08448) Comments: PATIENT WAS FASTINGPERFORMED BY: [facility] [email or web address] [facility] [id number] Vitamin D, 25-Hydroxy 47.5 ng/mL (Normal) Range: 30.0-100.0 Comments: Vitamin D deficiency has been defined by the [place] of[place] and an Endocrine Society practice guideline as alevel of serum 25-OH vitamin D less than 20 ng/mL (1,2).The Endocrine Society went on to further define vitamin Dinsufficiency as a level between 21 and 29 ng/mL (2).1. IOM ([place] of Medicine). 2010. Dietary reference intakes for calcium and D. [place]: The National Academies Press.2. Douglas MF, Ze [place], Kendall BAY, et al. Evaluation, treatment, and prevention of vitamin D deficiency: an Endocrine Society clinical practice guideline. JCEM. 2010; 96(7):1911-30. 85-Rgc-719200:16 CBC, Platelets & Auto Diff Comments: PATIENT WAS FASTINGPERFORMED BY: [facility]Co[facility] RahwayWwazwh9615 [facility] [id number] (91164) Immature Grans (Abs) 0.0 {x10E3/uL} (Normal) Range: [...] 4.14-5.80 WBC 7.2 {x10E3/uL} (Normal) Range: 3.4-10.8 98-Fxy-068416:16 Metabolic Panel, Comprehensive Comments: PATIENT WAS FASTINGPERFORMED BY: [employer] [id number] [facility] [id number] (13065) ALT (SGPT) 21 [iU]/L (Normal) Range: 0-44 [...] 6-24 Glucose 120 mg/dL (Abnormal) Range: 65-99 98-Yms-031268:16 TSH (THYROID STIMULATING Comments: PATIENT WAS FASTINGPERFORMED BY: [employer] Dgawwo6351 [facility] [id number] HORMONE) (45897) TSH 1.160 {uIU/mL} (Normal) Range: 0.450-4.500 46-Byn-080481:16 LIPID PANEL (15982) Comments: PATIENT WAS FASTINGPERFORMED BY: [employer]70 [facility] [id number] LDL/HDL Ratio 1.9 {ratio} (Normal) Range: 0.0-3.6 [...] (Abnormal) Range: 100-199 :50 HgA1C , Office (98989) HgA1C , Office 6.5 % (Normal) Range: 4.6 - 7.1 :50 Blood Glucose , Office (08659) Blood Glucose , Office 140 (Normal) 41-Bnb-437506:04 T4, FREE (THYROXINE) (81722) Comments: PATIENT NOT FASTINGPERFORMED BY: [employer] [facility] [id number] T4,Free(Direct) 1.06 ng/dL (Normal) Range: 0.82-1.77 15-Vxt-157940:04 T3, FREE (TRIDOTHYRONINE) (66923) Comments: PATIENT NOT FASTINGPERFORMED BY: [employer] [facility] [id number] Triiodothyronine,Free,Serum 3.3 pg/mL (Normal) Range: 2.0-4.4 63-Lxh-332396:04 TSH (THYROID STIMULATING Comments: PATIENT NOT FASTINGPERFORMED BY: [employer] Acqyci0865 [facility] [id number] HORMONE) (75822) TSH 0.879 {uIU/mL} (Normal) Range: 0.450-4.500 30-Ezy-573864:48 Microscopic Examination Comments: PATIENT NOT FASTINGPERFORMED BY: [employer] [facility] [id number] Bacteria None seen (Normal) Mucus Threads Present (Normal) Epithelial Cells (non renal) None seen {/hpf} (Normal) Range: 0 - 10 RBC 0-2 {/hpf} (Normal) Range: 0 - 2 WBC 0-5 {/hpf} (Normal) Range: 0 - 5 :26 LIPID PANEL (25437) Comments: PATIENT WAS FASTINGPERFORMED BY: [employer] [facility] [id number] VLDL Cholesterol Leroy VLDLCH mg/dL (Normal) Range: 5-40 Comments: The calculation for the VLDL cholesterol is not valid whentriglyceride level is >400 mg/dL.Triglyceride result indicated is too high for an accurate LDLcholesterol estimation. HDL Cholesterol 44 mg/dL (Normal) Triglycerides 501 mg/dL (Abnormal) Range: 0-149 Cholesterol, Total 205 mg/dL (Abnormal) Range: 100-199 :26 CALCIFEDIOL (75166) Comments: PATIENT WAS FASTINGPERFORMED BY: [employer] [facility] [id number] Vitamin D, 25-Hydroxy 13.5 ng/mL (Abnormal) Range: 30.0-100.0 Comments: Vitamin D deficiency has been defined by the [place] of[place]icine and an Endocrine Society practice guideline as alevel of serum 25-OH vitamin D less than 20 ng/mL (1,2).The Endocrine Society went on to further define vitamin Dinsufficiency as a level between 21 and 29 ng/mL (2).1. IOM ([place] of [employer]). 2010. Dietary reference intakes for calcium and D. [place]: The National Academies Press.2. Douglas MF, Ze [place], Kendall BAY, et al. Evaluation, treatment, and prevention of vitamin D deficiency: an Endocrine Society clinical practice guideline. JCEM. 2010; 96(7):1911-30. :26 Metabolic Panel, Comprehensive Comments: PATIENT WAS FASTINGPERFORMED BY: [employer] [facility] [id number] ([id number]) ALT (SGPT) 13 [iU]/L (Normal) Range: 0-44 [...] Glucose, Serum 174 mg/dL (Abnormal) Range: 65-99 88-Lqs-632680:26 TSH (17951) Comments: PATIENT WAS FASTINGPERFORMED BY: [facility] Rkxukc3874 [facility] [id number] TSH 0.218 {uIU/mL} (Abnormal) Range: 0.450-4.500 09-Kpn-426834:26 CBC, Platelets & Auto Diff Comments: PATIENT WAS FASTINGPERFORMED BY: LabCoRobert Wood Johnson [facility] Hospital at RahwaySjwqep3351 [facility] [id number] (22144) Immature Grans (Abs) 0.0 {x10E3/uL} (Normal) Range: [...] (Normal) Range: 3.4-10.8 :48 URINALYSIS, W/ MICRO (09330) Comments: PATIENT NOT FASTINGPERFORMED BY: LabCoRobert Wood Johnson [facility] Hospital at RahwayCotjui1369 [facility] [id number] Microscopic Examination See below: (Normal) Comments: Microscopic was indicated and was performed. Nitrite, Urine Negative (Normal) Urobilinogen,Semi-Qn 0.2 mg/dL (Normal) Range: 0.2-1.0 Bilirubin Negative (Normal) Occult Blood Trace (Abnormal) Ketones Negative (Normal) Glucose Negative (Normal) Protein Negative (Normal) WBC Esterase Negative (Normal) Appearance Clear (Normal) Urine-Color Yellow (Normal) pH 5.0 (Normal) Range: 5.0-7.5 Specific [place] 1.029 (Normal) Range: 1.005-1.030 :57 Blood Glucose , Office (23528) Blood Glucose , Office 192 (Normal) :57 HgA1C , Office (40643) HgA1C , Office 6.2 % (Normal) Range: 4.6 - 7.1 2-Kld-486391:54 Bedside Glucose Comments: [facility] [address] [place] [address] BEDSIDE GLU 140 mg/dL (Abnormal) Range: 70-110 Comments: MANAGEMENT OF PATIENT CARE PER NURSING PROTOCOL :0 ASPIRATION (SLIDES See Note (Normal) Comments: [facility] [address] [place], [address] 0 ONLY) Comments: Patient: YOLY SLAUGHTER : 1965 (52/M) Acct Num: [id number] Phys: Yaya Kaur D.O. Unit Num: [id number] Loc: EN Specimen: [id number] Received: 11/01/17541 Spec [...] flow cytometry. / FA:efra 10/29/17 TC:5 CPT: 10939 x4, 23727 x4, 82996 x9, 10120 x4, 38163 x2 CYTOLOGY STUDY Slides are reviewed. N. [...] Signed Dylan Miller 11/02/17 <signature on file> 1-Pky-319771:00 CBC W/Diff, Automated Comments: [facility] [address] [facility] [place], [place], [id number] Absolute Lymph 1.28 {X10_3/ul} (Normal) Range: 0.83-4.51 [...] 4.6-6.2 WBC 5.3 K/mm3 (Normal) Range: 4.4-11.0 5-Hdu-303891:00 Partial Thromboplast Time Comments: [facility] [address] [place], [place], [address] PTT 31.7 s (Normal) Range: 24.1-36.2 9-Lsw-849731:00 Prothrombin Time w/INR Comments: [facility] [address] [place], [place], [address] INR 1.0 (Normal) PROTIME 13.6 s (Normal) Range: 11.7-14.9 42-Xyj-346144:56 urine immunofixation (83672) Comments: PATIENT NOT FASTINGPERFORMED BY: [employer] Zybymj6817 [facility] [id number] KENIA Interpretation:U UPEIP (Normal) Comments: No monoclonality detected. 82-Crt-946850:56 serum immunofixation (64470) Comments: PATIENT NOT FASTINGPERFORMED BY: [employer] CommunicationRobert Wood Johnson University Hospital at RahwayFotmbs4561 [facility] [id number] Immunoglobulin M, Qn, Serum 36 mg/dL (Normal) Range: 20-172 Immunoglobulin A, Qn, Serum 219 mg/dL (Normal) Range: 90-386 Immunoglobulin G, Qn, Serum 1156 mg/dL (Normal) Range: 700-1600 Immunofixation Result, Serum UPEIP (Normal) Comments: No monoclonality detected. 42-Xwy-915428:56 serum free light chains Comments: PATIENT NOT FASTINGPERFORMED BY: [employer] CommunicationRobert Wood Johnson [facility] Hospital at RahwayJkgjbr7986 [facility] [id number] (24181) [place]/Lambda Ratio,S 1.17 (Normal) Range: 0.26-1.65 Free Lambda Lt Chains,S 15.8 mg/L (Normal) Range: 5.7-26.3 Free [place] Lt Chains,S 18.5 mg/L (Normal) Range: 3.3-19.4 18-Yrh-089200:56 UP (29819) Comments: PATIENT NOT FASTINGPERFORMED BY: [facility]6370 [facility] [id number] Please note: SPRCS (Normal) Comments: Protein electrophoresis scan will follow via computer, mail, orcourier delivery. M-[place], % 5.4 % (Abnormal) Gamma Globulin, U 21.6 % (Normal) Beta Globulin, U 36.9 % (Normal) Tpxvy-9-Ntxfyzyi, U 11.2 % (Normal) Ytrpm-5-Nuvuewlj, U 4.0 % (Normal) Albumin, U 26.3 % (Normal) Protein,Total,Urine 25.9 mg/dL (Normal) 94-Dfd-184927:56 SPE (04725) Comments: PATIENT NOT FASTINGPERFORMED BY: [facility]6370 [facility] [id number] Please note: SPRCS (Normal) Comments: Protein electrophoresis scan will follow via computer, mail, orcourier delivery. A/G Ratio 1.2 (Normal) Range: 0.7-1.7 Globulin, Total 3.3 g/dL (Normal) Range: 2.2-3.9 M-[place] Not Observed g/dL (Normal) Gamma Globulin 1.3 g/dL (Normal) Range: 0.4-1.8 Beta Globulin 1.1 g/dL (Normal) Range: 0.7-1.3 Viclx-9-Ugdkkmyi 0.7 g/dL (Normal) Range: 0.4-1.0 Plhii-8-Qztkbhpk 0.2 g/dL (Normal) Range: 0.0-0.4 Albumin 3.9 g/dL (Normal) Range: 2.9-4.4 Protein, Total, Serum 7.2 g/dL (Normal) Range: 6.0-8.5 6-Urv-193477:30 Cytology, Body Fluid / CSF Comments: Spec[facility] [address] [place], [address] CYTOLOGY,BF/CSF SEE PATHOLOGY REPORT Comments: Specimen submitted to Anatomical Pathology Department fortesting. (Normal) 27-Sep-20170:00 CYTOSPIN ON FLUID See Note (Normal) Comments: [facility] [address] [place], [address] Comments: Patient: YOLY SLAUGHTER : 1965 (52/M) Acct Num: [id number] Phys: Kimberly JONES,Saurabh Unit Num: [id number] Loc: LABSPEC Specimen: [id number] Received: 09/27/171529 Spec T ype: CYSPIN FL TISSUES TISSUES: Urine CYTOLOGY GROSS Received is 70 ml of clear gold fluid labeled with the patient's name and and designated per the requisition as urine. Submitted for cytology preparation. 09/28/17 TC:2 CPT: 63628 CYTOLOGY STUDY Slides are reviewed. The specimen consists of neutrophils, red blood cells and a few benign urothelial ce lls. DIAGNOSIS CYTOLOGY Urine for cytology (cytospin): Negative for malignant cells. Acute inflammation. SJ:efra 09/29/17 HEADER OPERATION: Not noted PRE-OP DIAGNOSIS: Hemat uria TISSUE SUBMITTED: Urine for cytology Signed Dylan Miller 09/29/17 <signature on file> 39-Jfo-416456:13 LEIDA (ANTINUCLEAR ANTIBODY) Comments: PATIENT NOT FASTINGPERFORMED BY: LabCoRobert Wood Johnson University Hospital at RahwayWnoeyd8088 [facility]General [facility] [id number] ([id number]) LEIDA Direct Negative (Normal) 03-Ica-57898:38 CREATININE FINGERSTICK Comments: [facility] [address] [place] [address] EGFR WB > 60.0000 mL/min (Normal) CREATININE WB 1.0 mg/dL (Normal) Range: 0.70-1.30 66-Jec-166719:44 METABOLIC PANEL, COMPREHENSIVE Comments: PATIENT NOT FASTINGPERFORMED BY: [employer] Lukzei2922 [facility] [id number] ([id number]) ALT (SGPT) 18 [iU]/L (Normal) Range: 0-44 [...] Glucose, Serum 143 mg/dL (Abnormal) Range: 65-99 24-Lfg-998750:44 OWUUE-FKMBSLIQJXS-TKPCA (60013) Comments: PATIENT NOT FASTINGPERFORMED BY: GiftangoRobert Wood Johnson University Hospital at RahwayEaanoo6830 [facility] [id number] AFP, Serum, Tumor Marker 2.2 ng/mL (Normal) Range: 0.0-8.3 Comments: [place] ECLIA methodology 17-Zkb-739066:44 HEPATIC FUNCTION PANEL Comments: PATIENT NOT FASTINGPERFORMED BY: [facility]6370 [facility] [id number] (80787) Bilirubin, Direct 0.32 mg/dL (Normal) Range: 0.00-0.40 16-Six-336198:44 LDH (LD) (LACTATE DEHYDROGENASE) Comments: PATIENT NOT FASTINGPERFORMED BY: [facility]6370 [facility] [id number] (33628) LDH 150 [iU]/L (Normal) Range: 121-224 17-Trx-401469:44 PSA (PROSTATE SPECIFIC Comments: PATIENT NOT FASTINGPERFORMED BY: [facility]6370 [facility] [id number] ANTIGEN) (64992) Prostate Specific Ag, 0.8 ng/mL (Normal) Range: 0.0-4.0 Serum Comments: KILTR ECLIA methodology. .According to the [place] [employer], Serum PSA shoulddecrease and remain at undetectable levels after radicalprostatectomy. The AUA defines biochemical recurrence as an initialPSA value 0.2 ng/mL or greater followed by a subsequent confirmatoryPSA value 0.2 ng/mL or greater.Values obtained with d ifferent assay methods or kits cannot be usedinterchangeably. Results cannot be interpreted as absolute evidenceof the presence or absence of malignant disease. 4-Gge-184495:49 METABOLIC PANEL, COMPREHENSIVE Comments: PATIENT NOT FASTINGPERFORMED BY: [facility]6370 [facility] [id number] (72783) ALT (SGPT) 14 [iU]/L (Normal) Range: 0-44 [...] Glucose, Serum 135 mg/dL (Abnormal) Range: 65-99 8-Ykg-660844:49 SED RATE ERYTHROCYTE (35608) Comments: PATIENT NOT FASTINGPERFORMED BY: [facility] Oxdmhq0497 [facility] [id number] Sedimentation Rate-Westergren 2 mm/h (Normal) Range: 0-15 3-Erx-062778:49 CBC, PLATELETS & MANUAL DIFF Comments: PATIENT NOT FASTINGPERFORMED BY: [place] [facility] Qjbpyi6130 [facility] [id number] (27272) Immature Grans (Abs) 0.0 {x10E3/uL} (Normal) Range: [...] 4.14-5.80 WBC 7.0 {x10E3/uL} (Normal) Range: 3.4-10.8 3-Zcl-173592:53 Urinalysis, Office (60938) UA - LEUKOCYTE ESTERASE Negative (Normal) UA - NITRITE Negative (Normal) URINE UROBILINGN CATHIE TIMED Normal mg/dL (Normal) UA - PROTEIN 30 mg/dL (Normal) UA - PH 6 (Abnormal) UA - BLOOD +++ (Abnormal) UA - SPECIFIC GRAVITY 1.025 (Normal) UA - KETONES Negative mg/dL (Normal) UA - BILIRUBIN Small (Normal) UA - GLUCOSE Negative (Normal) 4-Fwo-339991:38 URINE ROCIO CULTURE-IDENTIFICATN Comments: PATIENT NOT FASTINGPERFORMED BY: LabCoRobert Wood Johnson University Hospital at RahwayTtyrpd5872 [facility] [id number] Information: SRC: ([id number]) Result 1 MUG (Normal) Comments: Mixed urogenital flora1,000 Colonies/mL Urine Culture,Comprehensive Final report (Normal) 9-Mgx-750343:22 Urinalysis, Office (39319) UA - LEUKOCYTE ESTERASE Negative (Normal) UA - NITRITE Negative (Normal) URINE UROBILINGN CATHIE TIMED 2 mg/dL (Normal) UA - PROTEIN Trace mg/dL (Normal) UA - PH 7 (Normal) UA - BLOOD Non Hemolyzed Moderate (Normal) UA - SPECIFIC GRAVITY 1.020 (Normal) UA - KETONES Negative mg/dL (Normal) UA - BILIRUBIN Negative (Normal) UA - GLUCOSE Negative (Normal) 48-Nyh-80726:54 HgA1C , Office (79027) HgA1C , Office 6.4 % (Normal) Range: 4.6 - 7.1 :53 Blood Glucose , Office (09409) Blood Glucose , Office 176 (Normal) :35 Blood Glucose , Office (92240) Comments: 136 Blood Glucose , Office 136 (Normal) :35 HgA1C , Office (58959) Comments: 6.4 HgA1C , Office 6.4 % (Normal) Range: 4.6 - 7.1 :49 CBC With Differential/Platelet Comments: PATIENT WAS FASTINGPERFORMED BY: LabCoRobert Wood Johnson [facility] Hospital at RahwayDuaftt3117 [facility] [id number] Immature Grans (Abs) 0.0 {x10E3/uL} (Normal) Range: [...] Panel (14) Comments: PATIENT WAS FASTINGPERFORMED BY: [facility] [id number] ALT (SGPT) 22 [iU]/L (Normal) Range: 0-44 [...] Glucose, Serum 152 mg/dL (Abnormal) Range: 65-99 13-Eqc-220762:49 Lipid Panel With LDL/HDL Comments: PATIENT WAS FASTINGPERFORMED BY: [employer] Gtbapy4853 [facility] [id number] Ratio LDL/HDL Ratio 1.7 {ratio_units} Range: 0.0-3.6 [...] {uIU/mL} (Normal) Comments: PATIENT WAS FASTINGPERFORMED BY: [facility] Xmarzy6980 [facility] [id number] 11:49 Range: 0.450-4.500 31-Keq-62656:07 Blood Glucose , Office (80723) Blood Glucose , Office 168 (Normal) Plan of Care Name Dates Details Instructions Headache : Reviewed Lab Indication: Headache Brain [...] Vitamin D deficiency Pulmonary sarcoidosis : Reviewed Purse Framer Letter Indication: Pulmonary sarcoidosis Pulmonary sarcoidosis : Eprescribed prescriptions (G8553) Indication: Pulmonary sarcoidosis BMI 28.0-28.9,adult : Follow up in 6 weeks Indication: BMI 28.0-28.9,adult Diabetes type 2, controlled : Eprescribed prescriptions (G8553) Indication: Diabetes type 2, controlled BMI 28.0-28.9,adult : Follow up in 3 months Indication: BMI 28.0-28.9,adult Mediastinal adenopathy : Reviewed Purse Framer Letter Indication: Mediastinal adenopathy Mediastinal adenopathy : Reviewed Diagnostic Tests Indication: Mediastinal adenopathy Mediastinal adenopathy : Reviewed Lab Indication: Mediastinal adenopathy Hematuria : Reviewed Purse Framer Letter Indication: Hematuria Hematuria : Reviewed Lab [...] Indication: Hyperglycemia Planned Observations Metabolic Panel, Comprehensive (20506)Indication: Kidney stones On: :25 Request Comments: Jun 2017 LIPID PANEL (58239)Indication: Hypertriglyceridemia On: :24 Request Comments: Jun 2017 fasting Metabolic Panel, Comprehensive (66077)Indication: Diabetes type 2, controlled On: :39 Request Lipid Panel (75636)Indication: Diabetes type 2, controlled On: :39 Request MICROALBUMIN: CREATININE RATIO (74174) AND (68174)Indication: Diabetes type 2, controlled On: :39 Request URINALYSIS (78376)Indication: Diabetes type 2, controlled On: :39 Request CBC, Platelets & Auto Diff (75213)Indication: Diabetes type 2, controlled On: :39 Request TSH (15561)Indication: Diabetes type 2, controlled On: :39 Request HgA1C , Office (53675)Indication: Diabetes type 2, controlled On: :07 Request Planned Encounters Medical; 3 Month FU - On: 11-Jul-2018 8:30 [facility] Louann Alejandre CNP, CNP, Mary E Planned Procedures Toradol Injection, 30 mg On: 06-Jun-2018 Intent (J1885)By: Sera Adrian Comments: ntx76579/2020Ldltd, IM30mg/mlMLONG Radiology - Lumbar SpineBy: On: 06-Jun-2018 Intent Sera Adrian Toradol Injection, 30 mg On: 03-Jun-2018 Intent (J1885)By: Louann Alejandre CNP, CNP, Mary E PET ScanBy: Sera Adrian On: 14-Sep-2017 Intent Comments: * Providers fill out PET scan order form CT - Chest (IV Contrast On: 02-Sep-2017 Intent Needed)By: Sera Adrian Comments: 6.3mm Nodule Left Lung Base CT - Abdomen & Pelvis Stone On: 30-Aug-2017 Intent ProtocolBy: Sera Adrian Comments: STAT Toradol Injection, 30 mg On: 27-Aug-2017 Intent (J1885)By: Louann Alejandre CNP, CNP [place] Planned Medications INJECTION, KETOROLAC TROMETHAMINE, PER 15 MG Ordered: 27-Aug-2017 Pending Louann Alejandre CNP, CNP [place] INJECTION, KETOROLAC TROMETHAMINE, PER 15 MG Ordered: 03-Jun-2018 Pending Louann Alejandre CNP, CNP [place] INJECTION, KETOROLAC TROMETHAMINE, PER 15 MG [...] Instructions Indication: Hyperglycemia Encounters Office Visit On: 08-Jul-2018 10:53 Encounter Reason: [...] go home, Then went to ER in [place], they looked in ears. Went to [facility] h ad ear cleaned out, [...] Cataract(s): Having cataract surgery next Wednesday at [facility] Encounter Diagnosis: BMI 28.0-28.9,adult, Former smoker, Pulmonary [...] like crazy afterwards.-No other drug use.Sees Urology Sep. . Encounter Diagnosis: Mediastinal adenopathy, Multiple lung nodules [...] education class at hospital. Going to diabetic rn l and d next month.Quit [place] as much. Encounter [...] of inguinal hernia [facility] Payers [facility] Terrie Slaughter; karen guarantor
--- OUTSIDE RECORDS SUMMARY | 2018-11-14 20:17 | XMS RPT_ITS | Continuity of Care Document ---
:1965 Author Organization [facility] Address [address] [place] [address] Phone Care Team Providers Name Role Phone [...] will change to metformin at night, seeing adaptive physical educator at hospital in Sep 2017 Status: [...] Brain tumor removed 05-18 discharged done at [facility] Brain surgery benign Status: Active Mixed [...] cholecystectomy (Z90.49, V45.79) Comments: Age 21 at [place] Status: Active Syncope (R55, 780.2) Comments: seen [...] days Quantity: 30 {Tablet} Refills: 6 Ordered:01-Nov-2017 Srikanth Marx Start : 01-Nov-2017 Active ReliOn Confirm [...] 03-Jun-2018 Active Tylenol 500 MG Oral Capsule z0ckrwx (500 MG) Active Vitamin D3 Maximum Strength [...] 4 Views Result: Comments: See Note; NOTES: [facility] Imaging Services [address] [place] [address] L/S Spine Min 4 Views MR#: [id number] Acct: [id number] Name: YOLY SLAUGHTER Rep #: [id number] : 1965 M 52 From: Jose Alcantara DO PCP: Louann Alejandre NP Status: REG CLI Study: L/S Spine Min 4 Views Date of Exam: 06/06/18 Exam# [id number] Ordering Dr: Sera Adrian LEGAL OFFICER-C STUDY: X-RAY - CRISTINA MBAR SPINE REASON [...] , CC: Louann Alejandre NP; GUERLINE Adrian Substation Mechanic: Signed 03-Jun-2018 Emergency Department Summary Result: Comments: See Note; NOTES: [facility] Medical Records Department [address] [place] [address] Emergency Department Summary 06/03/181915 MR#: [id number] Acct: [id number] Name: YOLY SLAUGHTER Rep #: [id number] : 1965 52 From: Emily Perez MD [...] right hand/forearm This note was generated with Minboxation software. It may contain incorrect words, spelling, and punctuation that were not noted in review of the chart prior to signin g ED Disposition - Plan for ED Patient: Chief Complaint: Bite Referrals: Louann Alejandre, LEGAL OFFICER-C [Primary Care Provider] - What to do if you have Problems For any increased pain, shortness of breath, bl eeding, nausea or vomiting, chest pain, or any unexpected problems, contact your Primary Care Provider. Call [facility] ([phone]) or report to the closest Emergency Room. Call 911 if necessar y. 06/03/182148 <Electronically signed by Emily Perez MD> Date Emily Perez MD Cosigner Signature (If Indicated): Date CC: Louann Alejandre NP 03-Jun-2018 Discharge Instruction Result: Comments: See Note; NOTES: [facility] Medical Records Department [address] [place] [address] Discharge Instruction 06/03/188 MR#: [id number] Acct: [id number] Name: YOLY SLAUGHTER Rep #: [id number] : 1965 52 From: Emily Perez MD PCP: Louann Alejandre NP Status: REG ER ED Disposition - Plan for ED Patient: Disposition: Home or Assisted Living Chief Complaint: Bi te Instructions: ED Bite Dog Prescriptions: Amox/Clavulanate Tablet [Augmentin Tablet] 875 mg PO Q12H #20 tablet Referrals: Louann Alejandre, LEGAL OFFICER-C [Primary Care Provider] - 5-7 Days What to do if you have Problems For any increased pain, shortness of breath, bleeding, nausea or vomiting, chest pain, or any unexpected problems, contact your Primary Care Provider. Call [facility] ([phone]) or r eport to the closest Emergency Room. Call 911 if necessary. 06/03/181918 <Electronically signed by Emily Perez MD> Date Emily rea MD Cosigner Signature (If Indicated): Date CC: Louann Alejandre NP 03-Jun-2018 Forearm 2 Views Result: Comments: See Note; NOTES: [facility] Imaging Services [address] [place] [address] Forearm 2 Views MR#: [id number] Acct: [id number] Name: YOLY SLAUGHTER Rep #: [id number] DO B: 1965 M 52 From: Sarah Sow MD PCP: Louann Alejandre NP Status: PRE ER Study: Forearm 2 Views Date of Exam: 06/03/18 Exam# [id number] Ordering Dr: Emily Perez MD STUDY: X-RAY [...] CC: Louann Alejandre NP; Emily Perez MD Substation Mechanic: Signed 03-Jun-2018 Hand Min 3 Views Result: Comments: See Note; NOTES: [facility] Imaging Services [address] [place] [address] Hand Min 3 Views MR#: [id number] Acct: [id number] Name: YOLY SLAUGHTER Rep #: [id number] D OB: 1965 M 52 From: Carol Mott MD PCP: Louann Alejandre NP Status: REG ER Study: Hand Min 3 Views Date of Exam: 06/03/18 Exam# [id number] Ordering Dr: Emily Perez MD STUDY: X-RAY [...] CC: Louann Alejandre NP; Emily Perez MD Substation Mechanic: Signed 09-May-2018 Pulmonary Visit Report Result: Comments: See Note; NOTES: [facility] [address] [place] [address] OFFICE VISIT Date of Service: 05/09/18 MR#: [id number] Acct: [id number] Name: YOLY HAGEN Jay Rep #: [id number] : 1965 Provider: Jazzy Rey Age/Sex: 52/M Location: [facility] Status: Signed Assessment AND Plan 1. Pulmonary [...] Plan Detail Follow Up 6 Months ([facility]) HPI 3 M FU: Chief [...] PO QDAY tab 10/05/17 [History Confirmed 05/09/18] PENDING SALE TO [facility] Medical History (Reviewed @ 14:12 by [...] W/WO Contrast Result: Comments: See Note; NOTES: [facility] Imaging Services [address] [place] [address] Brain W/WO Contrast MR#: [id number] Acct: [id number] Name: YOLY SLAUGHTER Rep #: [id number] : 1965 M 52 From: Rosario Choudhury MD PCP: Louann Alejandre NP Status: REG CLI Study: Brain W/WO Contrast Date of Exam: 03/14/18 Exam# [id number] Ordering Dr: Rogerio Velázquez MD STUDY: MRI [...] at 14:01 EDT Tel , Service support [phone], CC: Louann Alejandre NP; Venancio Velázquez MD Substation Mechanic: Signed 03-Mar-2018 Pulmonary Function Report Comp Result: Comments: See Note; NOTES: [facility] Pulmonary Services/Neurology [address] [place] [address] MR#: [id number] Acct: [id number] Name: KASANDRAYOLY Jay Rep #: [id number] : 0 1965 52 From: Wilder Fallon MD Referring Dr: Wilder Fallon MD Status: REG CLI Ordering Dr: Date: Location: [facility] Sex: M C COMPLETE PULMONARY FUNCTION TEST INTERPRETATION Brief HPI: Patient is a [age] year old male, currently under the care of myself, who presents to [facility] for complete pulmonary function tests secondary [...] Date Dictated: 03/03/18 1130 Date Transcribed: 03/03/181129 Substation Mechanic: DARLENE Signed 10-Feb-2018 Downtime Report Result: Comments: See Note; NOTES: [facility] Medical Records Department [address] [place] [address] Downtime Report MR#: [id number] Acct: [id number] Name: KASANDRAYOLY Jay Rep #: [id number] : 1965 52 From: Zac Gonazlez PCP: Louann Alejandre NP Status: REG CLI This patient was seen during an EMR downtime January 24, 2018 - January 31, 2018. This patient may have a combination of pa per and electronic documentation or all paper documentation. All documentation is viewable within the e-chart portion of [facility] for each patient visit. 09-Feb-2018 Pulmonary Visit Report Result: Comments: See Note; NOTES: [facility] [address] [place] [address] OFFICE VISIT Date of Service: 02/09/18 MR#: [id number] Acct: [id number] Name: JOSE MIGUELYOLY ABDI Rep #: [id number] : 1965 Provider: Wilder Fallon MD Age/Sex: 52/M Location: [facility] Status: Signed Assessment AND Plan 1. Sarcoidosis [...] male, currently in the care of Louann Joseemersonkaren, who presents for evaluation secondary to recent [...] PO QDAY tab 10/05/17 [History Confirmed 02/09/18] PENDING SALE TO [facility] Medical History (Reviewed 02/09/18 @ 07:19 [...] WITH Contrast Result: Comments: See Note; NOTES: [facility] Imaging Services [address] [place] [address] Chest WITH Contrast MR#: [id number] Acct: [id number] Name: YOLY SLAUGHTER Rep #: [id number] : 1965 M 52 From: Coery Fofana MD PCP: Louann Alejandre NP Status: REG CLI Study: Chest WITH Contrast Date of Exam: 01/24/18 Exam# [id number] Ordering Dr: Wilder Fallon MD STUDY: CT [...] Service support , CC: Louann Fallon MD Substation Mechanic: Signed 10-Nov-2017 Pulmonary Visit Report Result: Comments: See Note; NOTES: [facility] [place] [address] [place] [address] OFFICE VISIT Date of Service: 11/09/17 MR#: [id number] Acct: [id number] Name: YOLY HAGEN Rep #: [id number] : 1965 Provider: Wilder Fallon MD Age/Sex: 52/M Location: [facility] Status: Signed Assessment AND Plan 1. Sarcoidosis [...] states that he has not seen the foot doctor as recommended by his diabetes physician. Patient [...] lymph node [facility]. All showed lymphocytes [...] back pain, neck pain or other Skin/Breast Skin/[employer] [place] st: Negative dry skin, itching, rash, unusual [...] Operative Report Result: Comments: See Note; NOTES: [facility] Medical Records Department [address] [facility] [place] [address] Operative Report 10/29/17 1340 MR#: [id number] Acct: [id number] Name: LUCY SLAUGHTER Rep #: [id number] : 1965 52 From: Yaya Kaur DO PCP: Hill MORALES Louann [place] [facility] Location: [place] [address] Operative Report Date of Procedure: 10/29/17 BRONCHOSCOPY (EBUS) PROCEDURE REPO RT DATE OF SERVICE: October 29, 2017 BRIEF HISTORY: The patient is a 52-year-old male who follows with Dr. Fallon on an outpatient basis who is referred to ut for evaluation of mediastinal and hilar lymp [...] Comments: See Note; NOTES: [facility] [address] [place] [address] OFFICE VISIT Date of Service: 10/06/17 MR#: [id number] Acct: [id number] Name: YOLY HAGEN Rep #: [id number] : 1965 Provider: Wilder Fallon MD Age/Sex: 52/M Location: [facility] Status: Signed with Addenda ADDENDUM by Wilder [...] Date Wilder Fallon MD cc: Louann Alejandre LEGAL OFFICER * Signed Assessment AND Plan 1. Dyspnea [...] most appropriate first step. Will refer to [facility] surgery. If unable to obtain biopsy [...] Orders Orders: Follow Up 6 Weeks ([facility]) MARICRUZ alejandre referral: Chief Complaint: [...] 10/06/17 Weight: 79.379 kg Intake Visit Reasons: LEGAL OFFICER ciesa referral Accompanied by: Self Allergies No [...] (min) 65 Greater than 50% i n mkwa-ml-taow conversation discussing situation. Multiple phone calls 10/07/17 0540 <Electronically signed by Wilder Fallon MD> Date Giselle Fallon MD Cosigner Signature: Date (if applicable) CC: Louann Alejandre LEGAL OFFICER 07-Oct-2017 Pulmonary Visit Report Result: Comments: See Note; NOTES: [facility] [address] [place] [address] OFFICE VISIT Date of Service: 10/06/17 MR#: [id number] Acct: [id number] Name: YOLY HAGEN Rep #: [id number] : 1965 Provider: Wilder Fallon MD Age/Sex: 52/M Location: [facility] [place] Status: Signed Assessment AND Plan 1. Dyspnea [...] PO QDAY tab 10/05/17 [History Confirmed 10/06/17] PENDING SALE TO [facility] Medical History (Review ed 10/06/17 @ 06:51 [...] Spent (min) 65 Greater than 50% in pjws-vt-jesh conversation discussing situation. Multiple phone calls 10/07/17 0540 <Electronically signed by Wilder Fallon MD> Date Wilder Fallon MD Cosigner Signature: Date (if applicable) CC: Louann Alejandre NP 2-Sep-2017 PET/CT Tumor Base -Thigh Init Result: Comments: See Note; NOTES: [facility] Imaging Services [address] [place] [address] PET/CT Tumor Base -Thigh Init MR#: [id number] Acct: [id number] Name: YOLY SLAUGHTER Rep # : [id number] : 1965 M 52 From: Carlos Yadav DO PCP: Louann Alejandre NP Status: REG CLI Study: PET/CT Tumor Base -Thigh Init Date of Exam: 09/27/17 Exam# [id number] Ordering Dr: Sera Adrian LEGAL OFFICER-C EXAMINATION: FDG PET CT INDICATIONS: A 52-year-old [...] 22:59 EST Tel , Service support [phone], CC: Louann Alejandre NP; LEGAL OFFICER-C Sera dArian Substation Mechanic: Signed 13-Sep-2017 Chest WITH Contrast Result: Comments: See Note; NOTES: [facility] Imaging Services [address] [place] [address] Chest WITH Contrast MR#: [id number] Acct: [id number] Name: YOLY SLAUGHTER Rep #: [id number] : 1965 M 52 From: Mamadou Cisco CANO PCP: Louann Alejandre NP Status: REG CLI Study: Chest WITH Contrast Date of Exam: 09/13/17 Exam# [id number] Ordering Dr: Sera Adrian LEGAL OFFICER-C STUDY: CT CHEST WITH CONTRAST REASON FOR [...] 09/14/2017 09:24:41 (ET). CC: Louann Alejandre NP; LEGAL OFFICER-Henny Adrian Substation Mechanic: Signed 30-Aug-2017 Abdomen/Pelvis without Cont Result: Comments: See Note; NOTES: [facility] Imaging Services [address] [place] [address] Abdomen/Pelvis without Cont MR#: [id number] Acct: [id number] Name: YOLY SLAUGHTER Rep #: [id number] : 1965 M 51 From: Jose Alcantara DO PCP: Louann Alejandre NP Status: REG CLI Study: Abdomen/Pelvis without Cont Date of Exam: 08/30/17 Exam# [id number] Ordering Dr: Sera Adrian NP-C STUD Y: [...] , CC: Louann Alejandre NP; GUERLINE Adrian Substation Mechanic: Signed 17-May-2017 Sinus/Facial Bone Result: Comments: See Note; NOTES: [facility] Imaging Services [address] [place] [address] Sinus/Facial Bone MR#: [id number] Acct: [id number] Name: YOLY SLAUGHTER Rep #: [id number] : 1965 M 51 From: Craig Jackson MD PCP: Louann Alejandre Status: REG CLI Study: Sinus/Facial Bone Date of Exam: 05/17/17 Exam# [id number] Ordering Dr: Rogerio Velázquez MD STUDY: CT [...] , CC: Louann Alejandre; Venancio Velázquez MD Substation Mechanic: Signed Family History Unknown Family Member Name [...] 1.92 m2 Results Date Description Value Details 03-Wxq-949299:16 CALCIFEDIOL (41200) Comments: PATIENT WAS FASTINGPERFORMED BY: [facility] Vvkktt3456 [facility] [id number] Vitamin D, 25-Hydroxy 47.5 ng/mL (Normal) Range: 30.0-100.0 Comments: Vitamin D deficiency has been defined by the [place] and an Endocrine Society practice guideline as alevel of serum 25-OH vitamin D less than 20 ng/mL (1,2).The Endocrine Society went on to further define vitamin Dinsufficiency as a level between 21 and 29 ng/mL (2).1. IOM ([place] [employer]). 2010. Dietary reference intakes for calcium and D. [place]: The National Academies Press.2. Douglas MF, Ze NC, Kendall BAY, et al. Evaluation, treatment, and prevention of vitamin D deficiency: an Endocrine Society clinical practice guideline. JCEM. 2010; 96(7):1911-30. 23-Sed-561070:16 CBC, Platelets & Auto Diff Comments: PATIENT WAS FASTINGPERFORMED BY: [facility]Co[facility] for RehabilitationEhzlwi8029 [facility] [id number] (43273) Immature Grans (Abs) 0.0 {x10E3/uL} (Normal) Range: [...] 4.14-5.80 WBC 7.2 {x10E3/uL} (Normal) Range: 3.4-10.8 35-Wcg-164707:16 Metabolic Panel, Comprehensive Comments: PATIENT WAS FASTINGPERFORMED BY: [facility] Qfcfum1246 [facility] [id number] (08499) ALT (SGPT) 21 [iU]/L (Normal) Range: 0-44 [...] 6-24 Glucose 120 mg/dL (Abnormal) Range: 65-99 72-Jez-586576:16 TSH (THYROID STIMULATING Comments: PATIENT WAS FASTINGPERFORMED BY: [facility] Hbclra2953 [facility] [id number] HORMONE) (13304) TSH 1.160 {uIU/mL} (Normal) Range: 0.450-4.500 58-Mdw-306759:16 LIPID PANEL (99896) Comments: PATIENT WAS FASTINGPERFORMED BY: [facility]70 [facility] [id number] LDL/HDL Ratio 1.9 {ratio} (Normal) Range: 0.0-3.6 [...] (Abnormal) Range: 100-199 :50 HgA1C , Office (69440) HgA1C , Office 6.5 % (Normal) Range: 4.6 - 7.1 :50 Blood Glucose , Office (98415) Blood Glucose , Office 140 (Normal) 31-Wnz-066909:04 T4, FREE (THYROXINE) (69482) Comments: PATIENT NOT FASTINGPERFORMED BY: [employer] fsboWOW [facility] [id number] T4,Free(Direct) 1.06 ng/dL (Normal) Range: 0.82-1.77 73-Gqh-945424:04 T3, FREE (TRIDOTHYRONINE) (54403) Comments: PATIENT NOT FASTINGPERFORMED BY: [employer] [facility] [id number] Triiodothyronine,Free,Serum 3.3 pg/mL (Normal) Range: 2.0-4.4 16-Esl-406854:04 TSH (THYROID STIMULATING Comments: PATIENT NOT FASTINGPERFORMED BY: [employer] Tjlywq6532 [facility] [id number] HORMONE) (17770) TSH 0.879 {uIU/mL} (Normal) Range: 0.450-4.500 35-Vus-756115:48 Microscopic Examination Comments: PATIENT NOT FASTINGPERFORMED BY: [employer] fsboWOW [facility] [id number] Bacteria None seen (Normal) Mucus Threads Present (Normal) Epithelial Cells (non renal) None seen {/hpf} (Normal) Range: 0 - 10 RBC 0-2 {/hpf} (Normal) Range: 0 - 2 WBC 0-5 {/hpf} (Normal) Range: 0 - 5 :26 LIPID PANEL (54346) Comments: PATIENT WAS FASTINGPERFORMED BY: [facility] fsboWOW [facility] [id number] VLDL Cholesterol Leroy VLDLCH mg/dL (Normal) Range: 5-40 Comments: The calculation for the VLDL cholesterol is not valid whentriglyceride level is >400 mg/dL.Triglyceride result indicated is too high for an accurate LDLcholesterol estimation. HDL Cholesterol 44 mg/dL (Normal) Triglycerides 501 mg/dL (Abnormal) Range: 0-149 Cholesterol, Total 205 mg/dL (Abnormal) Range: 100-199 :26 CALCIFEDIOL (43533) Comments: PATIENT WAS FASTINGPERFORMED BY: [employer] [facility] [id number] Vitamin D, 25-Hydroxy 13.5 ng/mL (Abnormal) Range: 30.0-100.0 Comments: Vitamin D deficiency has been defined by the [place] and an Endocrine Society practice guideline as alevel of serum 25-OH vitamin D less than 20 ng/mL (1,2).The Endocrine Society went on to further define vitamin Dinsufficiency as a level between 21 and 29 ng/mL (2).1. IOM ([place] [employer] [place]). 2010. Dietary reference intakes for calcium and D. [place]: The National Academies Press.2. Douglas MF, Ze NC, Kendall BAY, et al. Evaluation, treatment, and prevention of vitamin D deficiency: an Endocrine Society clinical practice guideline. JCEM. 2010; 96(7):1911-30. :26 Metabolic Panel, Comprehensive Comments: PATIENT WAS FASTINGPERFORMED BY: [employer] fsboWOW [facility] [id number] (87944) ALT (SGPT) 13 [iU]/L (Normal) Range: 0-44 [...] Glucose, Serum 174 mg/dL (Abnormal) Range: 65-99 73-Zga-370374:26 TSH (18957) Comments: PATIENT WAS FASTINGPERFORMED BY: [facility] Wnwgzw6322 [facility] [id number] TSH 0.218 {uIU/mL} (Abnormal) Range: 0.450-4.500 17-Kiz-980036:26 CBC, Platelets & Auto Diff Comments: PATIENT WAS FASTINGPERFORMED BY: [facility]CoK[facility] for RehabilitationKyokbf9081 [facility] [id number] (43082) Immature Grans (Abs) 0.0 {x10E3/uL} (Normal) Range: [...] (Normal) Range: 3.4-10.8 :48 URINALYSIS, W/ MICRO (52939) Comments: PATIENT NOT FASTINGPERFORMED BY: [facility] for RehabilitationYqofqp9929 [facility] [id number] Microscopic Examination See below: (Normal) Comments: Microscopic was indicated and was performed. Nitrite, Urine Negative (Normal) Urobilinogen,Semi-Qn 0.2 mg/dL (Normal) Range: 0.2-1.0 Bilirubin Negative (Normal) Occult Blood Trace (Abnormal) Ketones Negative (Normal) Glucose Negative (Normal) Protein Negative (Normal) WBC Esterase Negative (Normal) Appearance Clear (Normal) Urine-Color Yellow (Normal) pH 5.0 (Normal) Range: 5.0-7.5 Specific [place] 1.029 (Normal) Range: 1.005-1.030 :57 Blood Glucose , Office (03392) Blood Glucose , Office 192 (Normal) :57 HgA1C , Office (63463) HgA1C , Office 6.2 % (Normal) Range: 4.6 - 7.1 3-Ung-953772:54 Bedside Glucose Comments: [facility] LaboratoryPoint of [address] [place] [address] BEDSIDE GLU 140 mg/dL (Abnormal) Range: 70-110 Comments: MANAGEMENT OF PATIENT CARE PER NURSING PROTOCOL :0 ASPIRATION (SLIDES See Note (Normal) Comments: [facility] [address] [place], [address] 0 ONLY) Comments: Patient: YOLY SLAUGHTER : 1965 (52/M) Acct Num: [id number] Phys: Yaya Kaur D.O. Unit Num: [id number] Loc: EN Specimen: [id number] Received: 11/01/17541 Spec [...] flow cytometry. / FA:efra 10/29/17 TC:5 CPT: 43271 x4, 65010 x4, 64726 x9, 29738 x4, 25863 x2 CYTOLOGY STUDY Slides are reviewed. N. [...] Signed Dylan Miller 11/02/17 <signature on file> 1-Lvl-063887:00 CBC W/Diff, Automated Comments: [facility] [address] [facility] [place], [place], [address] Absolute Lymph 1.28 {X10_3/ul} (Normal) Range: 0.83-4.51 [...] 4.6-6.2 WBC 5.3 K/mm3 (Normal) Range: 4.4-11.0 6-Eqh-098305:00 Partial Thromboplast Time Comments: [facility] [address] [place], [place], [address] PTT 31.7 s (Normal) Range: 24.1-36.2 0-Snl-689860:00 Prothrombin Time w/INR Comments: [facility] [address] [place], [place], [address] INR 1.0 (Normal) PROTIME 13.6 s (Normal) Range: 11.7-14.9 69-Hyt-180743:56 urine immunofixation (10645) Comments: PATIENT NOT FASTINGPERFORMED BY: [employer] Cewcnt9454 [facility] [id number] KENIA Interpretation:U UPEIP (Normal) Comments: No monoclonality detected. 41-Ltf-543750:56 serum immunofixation (27463) Comments: PATIENT NOT FASTINGPERFORMED BY: [employer] RehabilitationVrdbml2572 [facility] [id number] Immunoglobulin M, Qn, Serum 36 mg/dL (Normal) Range: 20-172 Immunoglobulin A, Qn, Serum 219 mg/dL (Normal) Range: 90-386 Immunoglobulin G, Qn, Serum 1156 mg/dL (Normal) Range: 700-1600 Immunofixation Result, Serum UPEIP (Normal) Comments: No monoclonality detected. 01-Owh-634323:56 serum free light chains Comments: PATIENT NOT FASTINGPERFORMED BY: [employer] RehabilitationFuhaty9748 [facility] [id number] (13404) Alleman/Lambda Ratio,S 1.17 (Normal) Range: 0.26-1.65 Free Lambda Lt Chains,S 15.8 mg/L (Normal) Range: 5.7-26.3 Free Alleman Lt Chains,S 18.5 mg/L (Normal) Range: 3.3-19.4 95-Ger-551982:56 UP (77508) Comments: PATIENT NOT FASTINGPERFORMED BY: [facility]6[address] [facility] [id number] Please note: SPRCS (Normal) Comments: Protein electrophoresis scan will follow via computer, mail, orcourier delivery. M-Calderon, % 5.4 % (Abnormal) Gamma Globulin, U 21.6 % (Normal) Beta Globulin, U 36.9 % (Normal) Afusl-4-Tibxkfqy, U 11.2 % (Normal) Wwkfq-4-Ydahvast, U 4.0 % (Normal) Albumin, U 26.3 % (Normal) Protein,Total,Urine 25.9 mg/dL (Normal) 19-Uvg-740425:56 SPE (08271) Comments: PATIENT NOT FASTINGPERFORMED BY: [facility] [facility] [id number] Please note: SPRCS (Normal) Comments: Protein electrophoresis scan will follow via computer, mail, orcourier delivery. A/G Ratio 1.2 (Normal) Range: 0.7-1.7 Globulin, Total 3.3 g/dL (Normal) Range: 2.2-3.9 M-Calderon Not Observed g/dL (Normal) Gamma Globulin 1.3 g/dL (Normal) Range: 0.4-1.8 Beta Globulin 1.1 g/dL (Normal) Range: 0.7-1.3 Aiwgu-0-Oqwrrvcv 0.7 g/dL (Normal) Range: 0.4-1.0 Wskda-5-Wkbyyfmk 0.2 g/dL (Normal) Range: 0.0-0.4 Albumin 3.9 g/dL (Normal) Range: 2.9-4.4 Protein, Total, Serum 7.2 g/dL (Normal) Range: 6.0-8.5 3-Omo-102285:30 Cytology, Body Fluid / CSF Comments: [facility] [address] [place], [address] CYTOLOGY,BF/CSF SEE PATHOLOGY REPORT Comments: Specimen submitted to Anatomical Pathology Department fortesting. (Normal) 27-Sep-20170:00 CYTOSPIN ON FLUID See Note (Normal) Comments: [facility] [address] [place], [address] Comments: Patient: YOLY SLAUGHTER : 1965 (52/M) Acct Num: [id number] Phys: Kimberly JONES,Saurabh Unit Num: [id number] Loc: LABSPEC Specimen: [id number] Received: 09/27/171529 Spec T ype: CYSPIN FL TISSUES TISSUES: Urine CYTOLOGY GROSS Received is 70 ml of clear gold fluid labeled with the patient's name and and designated per the requisition as urine. Submitted for cytology preparation. 09/28/17 TC:2 CPT: 39464 CYTOLOGY STUDY Slides are reviewed. The specimen consists of neutrophils, red blood cells and a few benign urothelial ce lls. DIAGNOSIS CYTOLOGY Urine for cytology (cytospin): Negative for malignant cells. Acute inflammation. SJ:efra 09/29/17 HEADER OPERATION: Not noted PRE-OP DIAGNOSIS: Hemat uria TISSUE SUBMITTED: Urine for cytology Signed Dylan Miller 09/29/17 <signature on file> 18-Vrg-818247:13 LEIDA (ANTINUCLEAR ANTIBODY) Comments: PATIENT NOT FASTINGPERFORMED BY: [facility] RehabilitationRdrdhi4593 [facility] [id number] ([id number]) LEIDA Direct Negative (Normal) 45-Kkx-45292:38 CREATININE FINGERSTICK Comments: [facility] [address] [place] [address] EGFR WB > 60.0000 mL/min (Normal) CREATININE WB 1.0 mg/dL (Normal) Range: 0.70-1.30 28-Ndg-278660:44 METABOLIC PANEL, COMPREHENSIVE Comments: PATIENT NOT FASTINGPERFORMED BY: [facility] Vaugla98[address] [facility] [id number] ([id number]) ALT (SGPT) 18 [iU]/L (Normal) Range: 0-44 [...] Glucose, Serum 143 mg/dL (Abnormal) Range: 65-99 60-Due-337115:44 TUFCK-MOIYWUVGJIY-DCTVA ([id number]) Comments: PATIENT NOT FASTINGPERFORMED BY: [facility]eraK[facility] for RehabilitationIdwcnc9804 [facility] [id number] AFP, Serum, Tumor Marker 2.2 ng/mL (Normal) Range: 0.0-8.3 Comments: [employer] ECLIA methodology 15-Dsa-359284:44 HEPATIC FUNCTION PANEL Comments: PATIENT NOT FASTINGPERFORMED BY: [facility] [facility] [id number] ([id number]) Bilirubin, Direct 0.32 mg/dL (Normal) Range: 0.00-0.40 04-Tzr-253152:44 LDH (LD) (LACTATE DEHYDROGENASE) Comments: PATIENT NOT FASTINGPERFORMED BY: [facility] [facility] [id number] ([id number]) LDH 150 [iU]/L (Normal) Range: 121-224 06-Htj-103459:44 PSA (PROSTATE SPECIFIC Comments: PATIENT NOT FASTINGPERFORMED BY: [facility] [facility] [id number] ANTIGEN) (97147) Prostate Specific Ag, 0.8 ng/mL (Normal) Range: 0.0-4.0 Serum Comments: [employer] ECLIA methodology. .According to the [employer], Serum PSA shoulddecrease and remain at undetectable levels after radicalprostatectomy. The AUA defines biochemical recurrence as an initialPSA value 0.2 ng/mL or greater followed by a subsequent confirmatoryPSA value 0.2 ng/mL or greater.Values obtained with d ifferent assay methods or kits cannot be usedinterchangeably. Results cannot be interpreted as absolute evidenceof the presence or absence of malignant disease. 2-Ire-023162:49 METABOLIC PANEL, COMPREHENSIVE Comments: PATIENT NOT FASTINGPERFORMED BY: [facility] [facility] [id number] ([id number]) ALT (SGPT) 14 [iU]/L (Normal) Range: 0-44 [...] Glucose, Serum 135 mg/dL (Abnormal) Range: 65-99 4-Bqt-697466:49 SED RATE ERYTHROCYTE (85173) Comments: PATIENT NOT FASTINGPERFORMED BY: [facility] Jophzv0446 [facility] [id number] Sedimentation Rate-Westergren 2 mm/h (Normal) Range: 0-15 3-Sgo-829558:49 CBC, PLATELETS & MANUAL DIFF Comments: PATIENT NOT FASTINGPERFORMED BY: [employer] [facility] Gwzfsg7[address] [facility] [id number] ([id number]) Immature Grans (Abs) 0.0 {x10E3/uL} (Normal) Range: [...] 4.14-5.80 WBC 7.0 {x10E3/uL} (Normal) Range: 3.4-10.8 5-Oso-754173:53 Urinalysis, Office (76734) UA - LEUKOCYTE ESTERASE Negative (Normal) UA - NITRITE Negative (Normal) URINE UROBILINGN CATHIE TIMED Normal mg/dL (Normal) UA - PROTEIN 30 mg/dL (Normal) UA - PH 6 (Abnormal) UA - BLOOD +++ (Abnormal) UA - SPECIFIC GRAVITY 1.025 (Normal) UA - KETONES Negative mg/dL (Normal) UA - BILIRUBIN Small (Normal) UA - GLUCOSE Negative (Normal) 6-Uie-315751:38 URINE ROCIO CULTURE-IDENTIFICATN Comments: PATIENT NOT FASTINGPERFORMED BY: [facility]Co[facility] for RehabilitationZnpxgu8251 [facility] [id number] Information: SRC: ([id number]) Result 1 MUG (Normal) Comments: Mixed urogenital flora1,000 Colonies/mL Urine Culture,Comprehensive Final report (Normal) 2-Liu-336987:22 Urinalysis, Office (17642) UA - LEUKOCYTE ESTERASE Negative (Normal) UA - NITRITE Negative (Normal) URINE UROBILINGN CATHIE TIMED 2 mg/dL (Normal) UA - PROTEIN Trace mg/dL (Normal) UA - PH 7 (Normal) UA - BLOOD Non Hemolyzed Moderate (Normal) UA - SPECIFIC GRAVITY 1.020 (Normal) UA - KETONES Negative mg/dL (Normal) UA - BILIRUBIN Negative (Normal) UA - GLUCOSE Negative (Normal) 47-Fdw-75356:54 HgA1C , Office (39522) HgA1C , Office 6.4 % (Normal) Range: 4.6 - 7.1 :53 Blood Glucose , Office (60726) Blood Glucose , Office 176 (Normal) :35 Blood Glucose , Office (54654) Comments: 136 Blood Glucose , Office 136 (Normal) :35 HgA1C , Office (19312) Comments: 6.4 HgA1C , Office 6.4 % (Normal) Range: 4.6 - 7.1 :49 CBC With Differential/Platelet Comments: PATIENT WAS FASTINGPERFORMED BY: [facility]CoK[facility] for RehabilitationTwjtav4587 [facility] [id number] Immature Grans (Abs) 0.0 {x10E3/uL} (Normal) Range: [...] Panel (14) Comments: PATIENT WAS FASTINGPERFORMED BY: [employer]70 [facility] [id number] ALT (SGPT) 22 [iU]/L (Normal) Range: 0-44 [...] Glucose, Serum 152 mg/dL (Abnormal) Range: 65-99 80-Ugr-944395:49 Lipid Panel With LDL/HDL Comments: PATIENT WAS FASTINGPERFORMED BY: [employer] Kltrth4460 [facility] [id number] Ratio LDL/HDL Ratio 1.7 {ratio_units} Range: 0.0-3.6 [...] (Normal) Comments: PATIENT WAS FASTINGPERFORMED BY: [facility] Vshpub0682 [facility] [id number] 11:49 Range: 0.450-4.500 51-Nno-54576:07 Blood Glucose , Office (17573) Blood Glucose , Office 168 (Normal) Plan [...] Vitamin D deficiency Pulmonary sarcoidosis : Reviewed [employer] Letter Indication: Pulmonary sarcoidosis Pulmonary sarcoidosis : Eprescribed prescriptions (G8553) Indication: Pulmonary sarcoidosis BMI 28.0-28.9,adult : Follow up in 6 weeks Indication: BMI 28.0-28.9,adult Diabetes type 2, controlled : Eprescribed prescriptions (G8553) Indication: Diabetes type 2, controlled BMI 28.0-28.9,adult : Follow up in 3 months Indication: BMI 28.0-28.9,adult Mediastinal adenopathy : Reviewed [employer] Letter Indication: Mediastinal adenopathy Mediastinal adenopathy : Reviewed Diagnostic Tests Indication: Mediastinal adenopathy Mediastinal adenopathy : Reviewed Lab Indication: Mediastinal adenopathy Hematuria : Reviewed [employer] Letter Indication: Hematuria Hematuria : Reviewed Lab [...] Indication: Hyperglycemia Planned Observations Metabolic Panel, Comprehensive (54057)Indication: Kidney stones On: :25 Request Comments: Jun 2017 LIPID PANEL (01677)Indication: Hypertriglyceridemia On: :24 Request Comments: Jun 2017 fasting Metabolic Panel, Comprehensive (97053)Indication: Diabetes type 2, controlled On: :39 Request Lipid Panel (25287)Indication: Diabetes type 2, controlled On: :39 Request MICROALBUMIN: CREATININE RATIO (90465) AND (04812)Indication: Diabetes type 2, controlled On: :39 Request URINALYSIS (97457)Indication: Diabetes type 2, controlled On: :39 Request CBC, Platelets & Auto Diff (87931)Indication: Diabetes type 2, controlled On: :39 Request TSH (32265)Indication: Diabetes type 2, controlled On: :39 Request HgA1C , Office (28205)Indication: Diabetes type 2, controlled On: :07 Request Planned Encounters Medical; 3 Month FU - On: 11-Jul-2018 8:30 [facility] Louann Alejandre CNP, CNP, Mary E Planned Procedures Toradol Injection, 30 mg On: 06-Jun-2018 Intent ([id number])By: Sera Adrian Comments: [id number]/2020Ldltd, IM30mg/mlMLONG Radiology - Lumbar SpineBy: On: 06-Jun-2018 [...] go home, Then went to ER in [place], they looked in ears. 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 Encounter [...] of inguinal hernia [facility] Payers [facility] Terrie Slaughter; karen guarantor
--- OUTSIDE RECORDS SUMMARY | 2018-11-14 20:18 | XMS RPT_ITS | Continuity of Care Document ---
:1965 Author Organization [facility] Address [facility] [address] [place] [address] Phone Care Team Providers Name Role Phone Louann Alejandre CNP Unavailable Kimberly JOSEPH MD, Pauly Begum Unavailable Dr. 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 Fallon, to eval diabetes vs sarcoid Status: Active BMI 28.0-28.9,adult (Z68.28, V85.24) Status: Active BMI 28.0-28.9,adult (Z68.28, V85.24) Status: Active BMI 29.0-29.9,adult (Z68.29, V85.25) Status: Active Diabetes type 2, controlled (E11.9, 250.00) Comments: , eats at midnight, sleeps only 3 hrs then more or less, will change to metformin at night, seeing adaptive physical educator at hospital in Sep 2017 Status: Active Dog bite of arm, right, sequela (S41.151S, 906.1) Comments: On Augmentin Status: Active Ejaculation blood (R36.1, 608.82) Comments: New [place] Kimberly Sep.27 Status: Active Enlarged prostate (N40.0, 600.00) Comments: New Problem 09/02/17 Status: Active Fall (W19.XXXA, E888.9) Status: Active Fatigue (R53.83, 780.79) Status: Active Former smoker (Z87.891, V15.82) Status: Active GERD (gastroesophageal reflux disease) (K21.9, 530.81) Comments: uses zantac daily Status: Active Hearing deficit (H91.90, V41.2) Comments: [...] Brain tumor removed 05-18 discharged done at [facility] Brain surgery benign Status: Active [...] cholecystectomy (Z90.49, V45.79) Comments: Age 21 at [place] Status: Active Syncope (R55, 780.2) Comments: seen in ER, work up in progress, ent, Mri brain etc Status: Active Unspecified Diagnosis Status: Active UTI symptoms (R39.9, 788.99) Status: Active Vitamin D deficiency (E55.9, 268.9) Comments: was 13.5 Status: Active Medications Name Dates Details Augmentin 875-125 MG Oral Tablet Active 1 bid (875-125 MG) Cyclobenzaprine HCl 10 MG Oral Tablet 1 (one) Tablet PO TID for 21 days Quantity: 63 {Tablet} Refills: 0 Ordered:06-Jun-2018 Sera Adrian Start : 06-Jun-2018 Active Livalo 2 MG Oral Tablet 1 (one) Tablet Tablet qhs for 0 days Quantity: 42 {Tablet} Refills: 0 Ordered:13-Dec-2017 Paulette Stovall LPN Start : 05-Nov-2017 Active MetFORMIN HCl ER 500 MG Oral Tablet Extended Release 24 Hour 1 (one) Tablet Tablet qhs for 0 days Quantity: 30 {Tablet} Refills: 6 Ordered:01-Nov-2017 Francisco JSrikanth Start : 01-Nov-2017 Active ReliOn Confirm Glucose [...] 03-Jun-2018 Active Tylenol 500 MG Oral Capsule r9sahqc (500 MG) Active Vitamin D3 Maximum Strength 5000 UNIT Oral Capsule 1 (one) Capsule Capsule daily for 0 days Quantity: 30 {Capsule} Refills: 0 Ordered:13-Dec-2017 Paulette Stovall LPN Start : 05-Nov-2017 Active Ketorolac Tromethamine 10 MG Oral Tablet 1 [...] Start : 15-Mar-2017 End : 30-Aug-2017 Inactive Allergies and Adverse Reactions Name Dates Details [...] Completed Hernia Repair Completed Date Value Details 03-Jun-2018 Emergency Department Summary Result: Comments: See Note; NOTES: [facility] Medical Records Department [address] [place] [address] Emergency Department Summary 06/03/181915 MR#: [id number] Acct: [id number] Name: YOLY SLAUGHTER Rep #: [id number] : 1965 52 From: Emily Perez MD [...] right hand/forearm This note was generated with U[employer] dictation software. It may contain incorrect words, spelling, and punctuation that were not noted in review of the chart prior to [facility] ED Disposition - Plan for ED Patient: Chief Complaint: Bite Referrals: Louann Alejandre, TELEPHONE ORDER SUPERVISOR-C [Primary Care Provider] - What to do if you have Problems For any increased pain, shortness of breath, bl eeding, nausea or vomiting, chest pain, or any unexpected problems, contact your Primary Care Provider. Call [facility] ([phone]) or report to the closest Emergency Room. Call 911 if necessar y. 06/03/183 <Electronically signed by Emily Perez MD> Date Emily Perez MD Cosigner Signature (If Indicated): Date CC: Louann Alejandre NP 03-Jun-2018 Discharge Instruction Result: Comments: See Note; NOTES: [facility] Medical Records Department [address] [place] [address] Discharge Instruction 06/03/181917 MR#: [id number] Acct: [id number] Name: YOLY SLAUGHTER Rep #: [id number] : 1965 52 From: Emily Perez MD PCP: Louann Alejandre NP Status: REG ER ED Disposition - Plan for ED Patient: Disposition: Home or Assisted Living Chief Complaint: Bi te Instructions: ED Bite Dog Prescriptions: Amox/Clavulanate Tablet [Augmentin Tablet] 875 mg PO Q12H #20 tablet Referrals: Louann Alejandre, TELEPHONE ORDER SUPERVISOR-C [Primary Care Provider] - 5-7 Days What to do if you have Problems For any increased pain, shortness of breath, bleeding, nausea or vomiting, chest pain, or any unexpected problems, contact your Primary Care Provider. Call [facility] ([phone]) or r Friends[facility] to the closest Emergency Room. Call 911 if necessary. 06/03/181918 <Electronically signed by Emily Perez MD> Date Emily rea MD Cosigner Signature (If Indicated): Date CC: Louann Alejandre NP 03-Jun-2018 Forearm 2 Views Result: Comments: See Note; NOTES: [facility] Imaging Services [address] [place] [address] Forearm 2 Views MR#: [id number] Acct: [id number] Name: YOLY SLAUGHTER Rep #: [id number] DO B: 1965 M 52 From: Sarah Sow MD PCP: Louann Alejandre NP Status: PRE ER Study: Forearm 2 Views Date of Exam: 06/03/18 Exam# [id number] Ordering Dr: Emily Perez MD STUDY: X-RAY [...] CC: Louann Alejandre NP; Emily Perez MD Auto Parts Clerk: Signed 03-Jun-2018 Hand Min 3 Views Result: Comments: See Note; NOTES: [facility] Imaging Services [address] [place] [address] Hand Min 3 Views MR#: [id number] Acct: [id number] Name: YOLY SLAUGHTER Rep #: [id number] D OB: 1965 M 52 From: Carol Mott MD PCP: Louann Alejandre NP Status: [facility] Study: Hand Min 3 Views Date of Exam: 06/03/18 Exam# [id number] Ordering Dr: Emily Perez MD STUDY: X-RAY [...] CC: Louann Alejandre NP; Emily Perez MD Auto Parts Clerk: Signed 09-May-2018 Pulmonary Visit Report Result: Comments: See Note; NOTES: [facility] [address] [place] [address] OFFICE VISIT Date of Service: 05/09/18 MR#: [id number] Acct: [id number] Name: YOLY HAGEN Rep #: [id number] : 1965 Provider: Jazzy Rey Age/Sex: 52/M Location: [facility].PMW Status: Signed Assessment [...] Plan Detail Follow Up 6 Months ([facility]) HPI 3 M FU: Chief Complaint: [...] PO QDAY tab 10/05/17 [History Confirmed 05/09/18] [facility] Medical History (Reviewed @ 14:12 by Jazzy [...] W/WO Contrast Result: Comments: See Note; NOTES: [facility] Imaging Services [address] [place] [address] Brain W/WO Contrast MR#: [id number] Acct: [id number] Name: YOLY SLAUGHTER Rep #: [id number] : 1965 M 52 From: Rosario Choudhury MD PCP: Louann Alejandre NP Status: REG CLI Study: Brain W/WO Contrast Date of Exam: 03/14/18 Exam# [id number] Ordering Dr: Rogerio Velázquez MD STUDY: MRI [...] at 14:01 EDT Tel , Service support [phone], CC: Louann Alejandre NP; Venancio Velázquez MD Auto Parts Clerk: Signed 03-Mar-2018 Pulmonary Function Report Comp Result: Comments: See Note; NOTES: [facility] Pulmonary Services/Neurology [address] [place] [address] MR#: [id number] Acct: [id number] Name: YOLY SLAUGHTER Rep #: [id number] : 0 1965 52 From: Wilder Fallon MD Referring Dr: Wilder Fallon MD Status: REG CLI Ordering Dr: Date: Location: [facility] Sex: M C COMPLETE PULMONARY FUNCTION TEST INTERPRETATION Brief HPI: Patient is a [age] year old male, currently under the care of myself, who presents to [facility] for complete pulmonary function tests secondary [...] Date Dictated: 03/03/18 1130 Date Transcribed: 03/03/181129 Auto Parts Clerk: DARLENE Signed 10-Feb-2018 Downtime Report Result: Comments: See Note; NOTES: [facility] Medical Records Department [address] [place] [address] Downtime Report MR#: [id number] Acct: [id number] Name: YOLY SLAUGHTER Rep #: [id number] : 1965 52 From: Zac Gonzalez PCP: Louann Alejandre NP Status: REG CLI This patient was seen during an EMR downtime January 24, 2018 - January 31, 2018. This patient may have a combination of pa per and electronic documentation or all paper documentation. All documentation is viewable within the e-chart portion of [employer] for each patient visit. 09-Feb-2018 Pulmonary Visit Report Result: Comments: See Note; NOTES: [facility] [place] [address] [facility] [place] [address] OFFICE VISIT Date of Service: 02/09/18 MR#: [id number] Acct: [id number] Name: JOSE MIGUELYOLY ABDI Rep #: [id number] : 1965 Provider: Wilder Fallon MD Age/Sex: 52/M Location: [facility].PMW Status: Signed Assessment [...] PO QDAY tab 10/05/17 [History Confirmed 02/09/18] [facility] Medical History (Reviewed 02/09/18 @ 07:19 b [...] WITH Contrast Result: Comments: See Note; NOTES: [facility] Imaging Services [address] [place] [address] Chest WITH Contrast MR#: [id number] Acct: [id number] Name: YOLY SLAUGHTER Rep #: [id number] : 1965 M 52 From: Corey Fofana MD PCP: Louann Alejandre NP Status: REG CLI Study: Chest WITH Contrast Date of Exam: 01/24/18 Exam# [id number] Ordering Dr: Wilder Fallon MD STUDY: CT [...] , CC: Louann Will; Wilder Fallon MD Auto Parts Clerk: Signed 10-Nov-2017 Pulmonary Visit Report Result: Comments: See Note; NOTES: [facility] [address] [place] [address] OFFICE VISIT Date of Service: 11/09/17 MR#: [id number] Acct: [id number] Name: YOLY HAGEN Rep #: [id number] : 1965 Provider: Wilder Fallon MD Age/Sex: 52/M Location: [facility] Status: Signed Assessment AND Plan 1. Sarcoidosis [...] in the care of Louann Joseemersonkaren, who pre sents for evaluation secondary to [...] states that he has not seen the rehab specialist as recommended by his diabetes physician. Patient [...] PO QDAY tab 10/05/17 [History Confirmed 11/09/17] [facility] Medical History Ejaculation blood (Acute) Hematuria (Acute) [...] Fallon MD> Date ___ Wilder Fallon MD Cosignyoshi Signature: Date (if applicable) CC: Louann Hill MORALES 29-Oct-2017 Operative Report Result: Comments: See Note; NOTES: [facility] Medical Records Department [address] [facility] [place] [address] Operative Report 10/29/17 1340 MR#: [id number] Acct: [id number] Name: LUCY SLAUGHTER Jay Rep #: [id number] : 1965 52 From: Yaya Kaur DO PCP: Louann Alejandre NP Status: REG SDC Y Location: [place] [address] Operative Report Date of Procedure: 10/29/17 BRONCHOSCOPY [...] Date Yaya Kaur DO CC: Louann Alejandre TELEPHONE ORDER SUPERVISOR; Yaya Kaur D.O. Signed 07-Oct-2017 Pulmonary Visit Report Result: Comments: See Note; NOTES: [facility] [address] [place] [address] OFFICE VISIT Date of Service: 10/06/17 MR#: [id number] Acct: [id number] Name: YOLY HAGEN Jay Rep #: [id number] : 1965 Provider: Wilder Fallon MD Age/Sex: 52/M Location: [facility].PMW Status: Signed with [...] Date Wilder Fallon MD cc: Louann Alejandre TELEPHONE ORDER SUPERVISOR * Signed Assessment AND Plan 1. Dyspnea [...] most appropriate first step. Will refer to [facility] surgery. If unable to obtain [...] Orders Orders: Follow Up 6 Weeks ([facility]) [facility] CARMEN alejandre referral: Chief Complaint: Abnormal imaging [...] 10/06/17 Weight: 79.379 kg Intake Visit Reasons: TELEPHONE ORDER SUPERVISOR ciesa referral Accompanied by: Self Allergies No Known Allergies Allergy (Verified 10/06/17 06:50) Medications metformin 500 mg tablet 500 mg PO QDAY tab 10/05/17 [History Confirmed 10/06/17] [facility] Medical History (Reviewed 8 @ 06:51 by [...] (min) 65 Greater than 50% i n grfn-bp-glhw conversation discussing situation. Multiple phone calls 10/07/17 0566 <Electronically signed by Wilder Fallon MD> Date Giselle Fallon MD [facility] Signature: Date (if applicable) CC: Louann Alejandre CARMEN 07-Oct-2017 Pulmonary Visit Report Result: Comments: See Note; NOTES: [facility] [address] [place] [address] OFFICE VISIT Date of Service: 10/06/17 MR#: [id number] Acct: [id number] Name: YOLY HAGEN Rep #: [id number] : 1965 Provider: Wilder Fallon MD Age/Sex: 52/M Location: [facility].PMW Status: Signed Assessment [...] am unsure if this is because of knowpage g the PET findings. Full lymph node [...] 10/06/17 Weight: 79.379 kg Intake Visit Reasons: TELEPHONE ORDER SUPERVISOR ciesa referral Accompanied by: Self Allergies No Known Allergies Allergy (Verified 10/06/17 06:50) Medications metformin 500 mg tablet 500 mg PO QDAY tab 10/05/17 [History Confirmed 10/06/17] [facility] Medical History (Review ed 10/06/17 @ 06:51 [...] Spent (min) 65 Greater than 50% in iypv-nj-cxne conversation discussing situation. Multiple phone calls 10/07/17 0540 <Electronically signed by Wilder Fallon MD> Date Wilder Fallon MD Cosigner Signature: Date (if applicable) CC: Louann Alejandre NP 2-Sep-2017 PET/CT Tumor Base -Thigh Init Result: Comments: See Note; NOTES: [facility] Imaging Services [address] [place] [address] PET/CT Tumor Base -Thigh Init MR#: [id number] Acct: [id number] Name: YOLY SLAUGHTER Rep # : [id number] : 1965 M 52 From: Carlos Yadav DO PCP: Louann Alejandre NP Status: REG CLI Study: PET/CT Tumor Base -Thigh Init Date of Exam: 09/27/17 Exam# [id number] Ordering Dr: Sera Adrian TELEPHONE ORDER SUPERVISOR-C EXAMINATION: FDG PET CT INDICATIONS: A 52-year-old [...] for viable neoplasm. Histopathologic investigation is recommended. (VanSteenkikevin et al, Journal of Clinical Oncology 16 [...] 22:59 EST Tel , Service support [phone], CC: Louann Alejandre NP; TELEPHONE ORDER SUPERVISOR-C Sera Adrian Auto Parts Clerk: Signed 13-Sep-2017 Chest WITH Contrast Result: Comments: See Note; NOTES: [facility] Imaging Services [address] [place] [address] Chest WITH Contrast MR#: [id number] Acct: [id number] Name: YOLY SLAUGHTER Rep #: [id number] : 1965 M 52 From: Mamadou Peck DO PCP: Louann Alejandre NP Status: REG CLI Study: Chest WITH Contrast Date of Exam: 09/13/17 Exam# [id number] Ordering Dr: Sera Adrian TELEPHONE ORDER SUPERVISOR-C STUDY: CT CHEST WITH CONTRAST REASON FOR [...] 09/14/2017 09:24:41 (ET). CC: Louann Alejandre NP; TELEPHONE ORDER SUPERVISOR-C Sera Adrian Auto Parts Clerk: Signed 30-Aug-2017 Abdomen/Pelvis without Cont Result: Comments: See Note; NOTES: [facility] Imaging Services [address] [place] [address] Abdomen/Pelvis without Cont MR#: [id number] Acct: [id number] Name: YOLY SLAUGHTER Rep #: [id number] : 1965 M 51 From: Jose Quinton CANO PCP: Louann Alejandre NP Status: REG CLI Study: Abdomen/Pelvis without Cont Date of Exam: 08/30/17 Exam# [id number] Ordering Dr: Sera Adrian TELEPHONE ORDER SUPERVISOR-C STUD Y: CT ABDOMEN AND PELVIS WITHOUT [...] , CC: Louann Alejandre NP; GUERLINE Adrian Auto Parts Clerk: Signed 17-May-2017 Sinus/Facial Bone Result: Comments: See Note; NOTES: [facility] Imaging Services [address] [place] [address] Sinus/Facial Bone MR#: [id number] Acct: [id number] Name: YOLY SLAUGHTER Rep #: [id number] : 1965 M 51 From: Craig Jackson MD PCP: Louann Alejandre Status: REG CLI Study: Sinus/Facial Bone Date of Exam: 05/17/17 Exam# [id number] Ordering Dr: Rogerio Velázquez MD STUDY: CT [...] , CC: Louann Alejandre; Venancio Velázquez MD Auto Parts Clerk: Signed Family History Unknown Family Member Name Dates Details Father Comments: Diabetes Status: Active Social History Name Dates Details Alcohol use: Occasional alcohol use. Status: Active Drug Use Comments: Marijuana Status: Active Living Situation: Lives alone. Status: Active Tobacco use: Never smoker. Status: Active Smoking Status Name Dates Details Never smoker Vital Signs Date Test Result Details :38 Temperature 98.7 f Comments: Method: Temporal [...] 1.92 m2 Results Date Description Value Details 16-Xio-629555:16 CALCIFEDIOL (61486) Comments: PATIENT WAS FASTINGPERFORMED BY: LANIE [facility] [facility] [id number] Vitamin D, 25-Hydroxy 47.5 ng/mL (Normal) Range: 30.0-100.0 Comments: Vitamin D deficiency has been defined by the [place] ofUniversity [facility]als [facility] Medical Centercine and an Endocrine Society practice guideline as alevel of serum 25-OH vitamin D less than 20 ng/mL (1,2).The Endocrine Society went on to further define vitamin Dinsufficiency as a level between 21 and 29 ng/mL (2).1. IOM ([place] of Medicine). 2010. Dietary reference intakes for calcium and D. [place]: The National Academies Press.2. Douglas MF, Ze NC, Kendall BAY, et al. Evaluation, treatment, and prevention of vitamin D deficiency: an Endocrine Society clinical practice guideline. JCEM. 2010; 96(7):1911-30. 26-Ucq-957420:16 CBC, Platelets & Auto Diff Comments: PATIENT WAS FASTINGPERFORMED BY: LANIE LabCoIn[facility] WoodburyWrmdje7622 [facility] [id number] (85339) Immature Grans (Abs) 0.0 {x10E3/uL} (Normal) Range: [...] 4.14-5.80 WBC 7.2 {x10E3/uL} (Normal) Range: 3.4-10.8 17-Bgi-905122:16 Metabolic Panel, Comprehensive Comments: PATIENT WAS FASTINGPERFORMED BY: [facility] [facility] [id number] (06644) ALT (SGPT) 21 [iU]/L (Normal) Range: 0-44 [...] 6-24 Glucose 120 mg/dL (Abnormal) Range: 65-99 14-Sqx-122883:16 TSH (THYROID STIMULATING Comments: PATIENT WAS FASTINGPERFORMED BY: [facility] HealthIn[facility] WoodburyWldlfk6871 [facility] [id number] HORMONE) (98980) TSH 1.160 {uIU/mL} (Normal) Range: 0.450-4.500 32-Qac-014183:16 LIPID PANEL (00897) Comments: PATIENT WAS FASTINGPERFORMED BY: [facility] HealthIn[facility] WoodburyGkoygr1364 [facility] [id number] LDL/HDL Ratio 1.9 {ratio} (Normal) Range: 0.0-3.6 [...] (Abnormal) Range: 100-199 :50 HgA1C , Office (29722) HgA1C , Office 6.5 % (Normal) Range: 4.6 - 7.1 :50 Blood Glucose , Office (58338) Blood Glucose , Office 140 (Normal) 69-Gxp-095547:04 T4, FREE (THYROXINE) (98568) Comments: PATIENT NOT FASTINGPERFORMED BY: [facility]ocialDzilth-[facility]le Health CenterPtnlfw1925 [facility] [id number] T4,Free(Direct) 1.06 ng/dL (Normal) Range: 0.82-1.77 :04 T3, FREE (TRIDOTHYRONINE) (73241) Comments: PATIENT NOT FASTINGPERFORMED BY: [facility]ocialDzilth-[facility]-Dith-Hle Health CenterAtoipq9378 [facility] [id number] Triiodothyronine,Free,Serum 3.3 pg/mL (Normal) Range: 2.0-4.4 75-Jxv-956296:04 TSH (THYROID STIMULATING Comments: PATIENT NOT FASTINGPERFORMED BY: [facility] Leneir6574 [facility] [id number] HORMONE) (10226) TSH 0.879 {uIU/mL} (Normal) Range: 0.450-4.500 30-Zml-329470:48 Microscopic Examination Comments: PATIENT NOT FASTINGPERFORMED BY: [facility]6[address] [facility] [id number] Bacteria None seen (Normal) Mucus Threads Present (Normal) Epithelial Cells (non renal) None seen {/hpf} (Normal) Range: 0 - 10 RBC 0-2 {/hpf} (Normal) Range: 0 - 2 WBC 0-5 {/hpf} (Normal) Range: 0 - 5 :26 LIPID PANEL (52405) Comments: PATIENT WAS FASTINGPERFORMED BY: [facility]6[address] [facility] [id number] VLDL Cholesterol Leroy VLDLCH mg/dL (Normal) Range: 5-40 Comments: The calculation for the VLDL cholesterol is not valid whentriglyceride level is >400 mg/dL.Triglyceride result indicated is too high for an accurate LDLcholesterol estimation. HDL Cholesterol 44 mg/dL (Normal) Triglycerides 501 mg/dL (Abnormal) Range: 0-149 Cholesterol, Total 205 mg/dL (Abnormal) Range: 100-199 50-Vwr-907820:26 CALCIFEDIOL (99599) Comments: PATIENT WAS FASTINGPERFORMED BY: [facility] Hmcfuz7921 [facility] [id number] Vitamin D, 25-Hydroxy 13.5 ng/mL (Abnormal) Range: 30.0-100.0 Comments: Vitamin D deficiency has been defined by the [place] ofMedicine and an Endocrine Society practice guideline as alevel of serum 25-OH vitamin D less than 20 ng/mL (1,2).The Endocrine Society went on to further define vitamin Dinsufficiency as a level between 21 and 29 ng/mL (2).1. IOM ([place] of Medicine). 2010. Dietary reference intakes for calcium and D. [place]: The National Academies Press.2. Douglas MF, Ze MORA, Kendall BAY, et al. Evaluation, treatment, and prevention of vitamin D deficiency: an Endocrine Society clinical practice guideline. JCEM. 2010; 96(7):1911-30. 34-Bgb-233199:26 Metabolic Panel, Comprehensive Comments: PATIENT WAS FASTINGPERFORMED BY: QuintesocialInsp[facility] Medical Center WoodburyKyxzle3799 [facility] [id number] (49118) ALT (SGPT) 13 [iU]/L (Normal) Range: 0-44 [...] Glucose, Serum 174 mg/dL (Abnormal) Range: 65-99 60-Oyy-066060:26 TSH (85383) Comments: PATIENT WAS FASTINGPERFORMED BY: [facility]ocialInsp[facility] Center WoodburyNznwvi8216 [facility] [id number] TSH 0.218 {uIU/mL} (Abnormal) Range: 0.450-4.500 19-Kzp-170184:26 CBC, Platelets & Auto Diff Comments: PATIENT WAS FASTINGPERFORMED BY: [facility] HealthIn[facility] Center WoodburyEymopq9521 [facility] [id number] (72452) Immature Grans (Abs) 0.0 {x10E3/uL} (Normal) Range: [...] (Normal) Range: 3.4-10.8 :48 URINALYSIS, W/ MICRO (50849) Comments: PATIENT NOT FASTINGPERFORMED BY: LabCoInspira Medical Center WoodburyGcoyiw9034 [facility] [id number] Microscopic Examination See below: (Normal) Comments: Microscopic was indicated and was performed. Nitrite, Urine Negative (Normal) Urobilinogen,Semi-Qn 0.2 mg/dL (Normal) Range: 0.2-1.0 Bilirubin Negative (Normal) Occult Blood Trace (Abnormal) Ketones Negative (Normal) Glucose Negative (Normal) Protein Negative (Normal) WBC Esterase Negative (Normal) Appearance Clear (Normal) Urine-Color Yellow (Normal) pH 5.0 (Normal) Range: 5.0-7.5 Specific [place] 1.029 (Normal) Range: 1.005-1.030 :57 Blood Glucose , Office (63813) Blood Glucose , Office 192 (Normal) :57 HgA1C , Office (73188) HgA1C , Office 6.2 % (Normal) Range: 4.6 - 7.1 :54 Bedside Glucose Comments: [facility] LaboratoryPoint of [address]te[address] [place] [address] BEDSIDE GLU 140 mg/dL (Abnormal) Range: 70-110 Comments: MANAGEMENT OF PATIENT CARE PER NURSING PROTOCOL :0 ASPIRATION (SLIDES See Note (Normal) Comments: [facility] [address] [place], [address] 0 ONLY) Comments: Patient: YOLY SLAUGHTER : 1965 (52/M) Acct Num: [id number] Phys: Yaya Kaur D.O. Unit Num: [id number] Loc: EN Specimen: [id number] Received: 11/01/17541 Spec [...] flow cytometry. / FA:efra 10/29/17 TC:5 CPT: 59448 x4, 97981 x4, 41554 x9, 33573 x4, 05051 x2 CYTOLOGY STUDY Slides are reviewed. N. [...] Q - TBNA site 10R Signed Dylan Paul 11/02/17 <signature on file> 7-Ljm-369342:00 CBC W/Diff, Automated Comments: [facility] [address] [place], [place], [id number] Absolute Lymph 1.28 {X10_3/ul} (Normal) Range: 0.83-4.51 [...] 4.6-6.2 WBC 5.3 K/mm3 (Normal) Range: 4.4-11.0 7-Vse-479477:00 Partial Thromboplast Time Comments: [facility] [address] [place], [address] PTT 31.7 s (Normal) Range: 24.1-36.2 7-Bmn-414270:00 Prothrombin Time w/INR Comments: [facility] [address] [place], [address] INR 1.0 (Normal) PROTIME 13.6 s (Normal) Range: 11.7-14.9 75-Buf-953362:56 urine immunofixation (51551) Comments: PATIENT NOT FASTINGPERFORMED BY: [employer]6370 [facility] [id number] KENIA Interpretation:U UPEIP (Normal) Comments: No monoclonality detected. 94-Ahr-559913:56 serum immunofixation (32087) Comments: PATIENT NOT FASTINGPERFORMED BY: [employer]6[address] [facility] [id number] Immunoglobulin M, Qn, Serum 36 mg/dL (Normal) Range: 20-172 Immunoglobulin A, Qn, Serum 219 mg/dL (Normal) Range: 90-386 Immunoglobulin G, Qn, Serum 1156 mg/dL (Normal) Range: 700-1600 Immunofixation Result, Serum UPEIP (Normal) Comments: No monoclonality detected. 03-Yls-411654:56 serum free light chains Comments: PATIENT NOT FASTINGPERFORMED BY: [facility] Pyeuhf2974 [facility] [id number] (33982) [place]/Lambda Ratio,S 1.17 (Normal) Range: 0.26-1.65 Free Lambda Lt Chains,S 15.8 mg/L (Normal) Range: 5.7-26.3 Free [place] Lt Chains,S 18.5 mg/L (Normal) Range: 3.3-19.4 21-Ado-474358:56 UPEP (45404) Comments: PATIENT NOT FASTINGPERFORMED BY: [facility]6370 [facility] [id number] Please note: SPRCS (Normal) Comments: Protein electrophoresis scan will follow via computer, mail, orcourier delivery. M-[place], % 5.4 % (Abnormal) Gamma Globulin, U 21.6 % (Normal) Beta Globulin, U 36.9 % (Normal) Lmznh-8-Rfignnom, U 11.2 % (Normal) Xbxjg-7-Zyshhxay, U 4.0 % (Normal) Albumin, U 26.3 % (Normal) Protein,Total,Urine 25.9 mg/dL (Normal) 01-Kgr-594501:56 SPE (29517) Comments: PATIENT NOT FASTINGPERFORMED BY: [facility]6370 [facility] [id number] Please note: SPRCS (Normal) Comments: Protein electrophoresis scan will follow via computer, mail, orcourier delivery. A/G Ratio 1.2 (Normal) Range: 0.7-1.7 Globulin, Total 3.3 g/dL (Normal) Range: 2.2-3.9 M-[place] Not Observed g/dL (Normal) Gamma Globulin 1.3 g/dL (Normal) Range: 0.4-1.8 Beta Globulin 1.1 g/dL (Normal) Range: 0.7-1.3 Puxny-0-Mliywrrz 0.7 g/dL (Normal) Range: 0.4-1.0 Vmhxg-8-Wvifrfhl 0.2 g/dL (Normal) Range: 0.0-0.4 Albumin 3.9 g/dL (Normal) Range: 2.9-4.4 Protein, Total, Serum 7.2 g/dL (Normal) Range: 6.0-8.5 8-Vup-533061:30 Cytology, Body Fluid / CSF Comments: Specimen Source: [facility] [address] [place], [place], [address] CYTOLOGY,BF/CSF SEE PATHOLOGY REPORT Comments: Specimen submitted to Anatomical Pathology Department fortesting. (Normal) 27-Sep-20170:00 CYTOSPIN ON FLUID See Note (Normal) Comments: [facility] [address] [place], [address] Comments: Patient: YOLY SLAUGHTER : 1965 (52/M) Acct Num: [id number] Phys: Kimberly JONES,Theodore Begum Unit Num: [id number] Loc: LABSPEC Specimen: [id number] Received: 09/27/17 - 1530 Spec T ype: CYSPIN FL TISSUES TISSUES: Urine CYTOLOGY GROSS Received is 70 ml of clear gold fluid labeled with the patient's name and and designated per the requisition as urine. Submitted for cytology preparation. 09/28/17 TC:2 CPT: 65098 CYTOLOGY STUDY Slides are reviewed. The specimen consists of neutrophils, red blood cells and a few benign urothelial ce lls. DIAGNOSIS CYTOLOGY Urine for cytology (cytospin): Negative for malignant cells. Acute inflammation. SJ:efra 09/29/17 HEADER OPERATION: Not noted PRE-OP DIAGNOSIS: Hemat uria TISSUE SUBMITTED: Urine for cytology Signed Dylan Miller 09/29/17 <signature on file> 18-Zki-492388:13 LEIDA (ANTINUCLEAR ANTIBODY) Comments: PATIENT NOT FASTINGPERFORMED BY: [employer] [facility] ServicesJW PlayerCentral Harnett Hospital [id number] ([id number]) LEIDA Direct Negative (Normal) 08-Eex-25101:38 CREATININE FINGERSTICK Comments: [facility] LaboratoryPoint [facility] Inhy[address] [facility]. [place], [place] [address] EGFR WB > 60.0000 mL/min (Normal) CREATININE WB 1.0 mg/dL (Normal) Range: 0.70-1.30 28-Kqv-431924:44 METABOLIC PANEL, COMPREHENSIVE Comments: PATIENT NOT FASTINGPERFORMED BY: [employer] [facility] [id number] ([id number]) ALT (SGPT) 18 [iU]/L (Normal) Range: 0-44 [...] Glucose, Serum 143 mg/dL (Abnormal) Range: 65-99 60-Wwo-263135:44 NBPLM-DACKORYNRVT-QXEMF (00100) Comments: PATIENT NOT FASTINGPERFORMED BY: [facility] Ysylga1365 [facility] [id number] AFP, Serum, Tumor Marker 2.2 ng/mL (Normal) Range: 0.0-8.3 Comments: Enject ECLIA methodology 37-Cpn-802380:44 HEPATIC FUNCTION PANEL Comments: PATIENT NOT FASTINGPERFORMED BY: [facility] [id number] ([id number]) Bilirubin, Direct 0.32 mg/dL (Normal) Range: 0.00-0.40 54-Rjx-873315:44 LDH (LD) (LACTATE DEHYDROGENASE) Comments: PATIENT NOT FASTINGPERFORMED BY: [facility] [employer] [id number] (02735) LDH 150 [iU]/L (Normal) Range: 121-224 56-Isz-222464:44 PSA (PROSTATE SPECIFIC Comments: PATIENT NOT FASTINGPERFORMED BY: [employer]6370 [facility] [id number] ANTIGEN) (50578) Prostate Specific Ag, 0.8 ng/mL (Normal) Range: 0.0-4.0 Serum Comments: [place]ita ECLIA methodology. .According to the [place] [employer], Serum PSA shoulddecrease and remain at undetectable levels after radicalprostatectomy. The AUA defines biochemical recurrence as an initialPSA value 0.2 ng/mL or greater followed by a subsequent confirmatoryPSA value 0.2 ng/mL or greater.Values obtained with d ifferent assay methods or kits cannot be usedinterchangeably. Results cannot be interpreted as absolute evidenceof the presence or absence of malignant disease. 3-Gie-316096:49 METABOLIC PANEL, COMPREHENSIVE Comments: PATIENT NOT FASTINGPERFORMED BY: [employer]PrecyseSbteli7617 [facility] [id number] (28890) ALT (SGPT) 14 [iU]/L (Normal) Range: 0-44 [...] Glucose, Serum 135 mg/dL (Abnormal) Range: 65-99 6-Ski-345000:49 SED RATE ERYTHROCYTE (65542) Comments: PATIENT NOT FASTINGPERFORMED BY: [facility] Tpvcdw3313 [facility] [id number] Sedimentation Rate-Westergren 2 mm/h (Normal) Range: 0-15 7-Ugf-714542:49 CBC, PLATELETS & MANUAL DIFF Comments: PATIENT NOT FASTINGPERFORMED BY: [facility] Wcwhew0398 [facility] [id number] (90970) Immature Grans (Abs) 0.0 {x10E3/uL} (Normal) Range: [...] 4.14-5.80 WBC 7.0 {x10E3/uL} (Normal) Range: 3.4-10.8 2-Sbt-390804:53 Urinalysis, Office (57728) UA - LEUKOCYTE ESTERASE Negative (Normal) UA - NITRITE Negative (Normal) URINE UROBILINGN CATHIE TIMED Normal mg/dL (Normal) UA - PROTEIN 30 mg/dL (Normal) UA - PH 6 (Abnormal) UA - BLOOD +++ (Abnormal) UA - SPECIFIC GRAVITY 1.025 (Normal) UA - KETONES Negative mg/dL (Normal) UA - BILIRUBIN Small (Normal) UA - GLUCOSE Negative (Normal) 5-Jkh-861942:38 URINE ROCIO CULTURE-IDENTIFICATN Comments: PATIENT NOT FASTINGPERFORMED BY: LabCoInspira Medical Center WoodburyAfkrab5445 [facility] [id number] Information: SRC:UC (66122) Result 1 MUG (Normal) Comments: Mixed urogenital flora1,000 Colonies/mL Urine Culture,Comprehensive Final report (Normal) 8-Dlt-421542:22 Urinalysis, Office (06311) UA - LEUKOCYTE ESTERASE Negative (Normal) UA - NITRITE Negative (Normal) URINE UROBILINGN CATHIE TIMED 2 mg/dL (Normal) UA - PROTEIN Trace mg/dL (Normal) UA - PH 7 (Normal) UA - BLOOD Non Hemolyzed Moderate (Normal) UA - SPECIFIC GRAVITY 1.020 (Normal) UA - KETONES Negative mg/dL (Normal) UA - BILIRUBIN Negative (Normal) UA - GLUCOSE Negative (Normal) :54 HgA1C , Office (71570) HgA1C , Office 6.4 % (Normal) Range: 4.6 - 7.1 :53 Blood Glucose , Office (29762) Blood Glucose , Office 176 (Normal) :35 Blood Glucose , Office (27205) Comments: 136 Blood Glucose , Office 136 (Normal) :35 HgA1C , Office (64142) Comments: 6.4 HgA1C , Office 6.4 % (Normal) Range: 4.6 - 7.1 :49 CBC With Differential/Platelet Comments: PATIENT WAS FASTINGPERFORMED BY: [facility]ocialDzilth-[facility]le Health CenterKgcwdb9982 [facility] [id number] Immature Grans (Abs) 0.0 {x10E3/uL} (Normal) Range: [...] 4.14-5.80 WBC 6.3 {x10E3/uL} (Normal) Range: 3.4-10.8 15-Uep-754382:49 Comp. Metabolic Panel (14) Comments: PATIENT WAS FASTINGPERFORMED BY: LabCoInspira Medical Center WoodburyHvxnnc2452 [facility] [id number] ALT (SGPT) 22 [iU]/L (Normal) Range: 0-44 [...] Glucose, Serum 152 mg/dL (Abnormal) Range: 65-99 11-Mur-035827:49 Lipid Panel With LDL/HDL Comments: PATIENT WAS FASTINGPERFORMED BY: [facility]CoInsp[facility] Center WoodburyCnqeux0303 [facility] [id number] Ratio LDL/HDL Ratio 1.7 {ratio_units} Range: 0.0-3.6 [...] {uIU/mL} (Normal) Comments: PATIENT WAS FASTINGPERFORMED BY: LabCoInsp[facility] Center WoodburyGnpzhf5007 [facility] [id number] 11:49 Range: 0.450-4.500 04-Pgk-58635:07 Blood Glucose , Office (63853) Blood Glucose , Office 168 (Normal) Plan of Care Name Dates Details Instructions Leg pain, bilateral : Follow up if [...] Vitamin D deficiency Pulmonary sarcoidosis : Reviewed [employer] Letter Indication: Pulmonary sarcoidosis Pulmonary sarcoidosis : Eprescribed prescriptions (G8553) Indication: Pulmonary sarcoidosis BMI 28.0-28.9,adult : Follow up in 6 weeks Indication: BMI 28.0-28.9,adult Diabetes type 2, controlled : Eprescribed prescriptions (G8553) Indication: Diabetes type 2, controlled BMI 28.0-28.9,adult : Follow up in 3 months Indication: BMI 28.0-28.9,adult Mediastinal adenopathy : Reviewed [employer] Letter Indication: Mediastinal adenopathy Mediastinal adenopathy : Reviewed Diagnostic Tests Indication: Mediastinal adenopathy Mediastinal adenopathy : Reviewed Lab Indication: Mediastinal adenopathy Hematuria : Reviewed [employer] Letter Indication: Hematuria Hematuria : Reviewed Lab [...] Indication: Hyperglycemia Planned Observations Metabolic Panel, Comprehensive (08062)Indication: Kidney stones On: 17-Yrf-63534:25 Request Comments: Jun 2017 LIPID PANEL (27499)Indication: Hypertriglyceridemia On: 43-Fki-02121:24 Request Comments: Jun 2017 fasting Metabolic Panel, Comprehensive (75629)Indication: Diabetes type 2, controlled On: 54-Yny-27901:39 Request Lipid Panel (56380)Indication: Diabetes type 2, controlled On: :39 Request MICROALBUMIN: CREATININE RATIO (50711) AND (35974)Indication: Diabetes type 2, controlled On: :39 Request URINALYSIS (52408)Indication: Diabetes type 2, controlled On: :39 Request CBC, Platelets & Auto Diff (54672)Indication: Diabetes type 2, controlled On: :39 Request TSH (56777)Indication: Diabetes type 2, controlled On: :39 Request HgA1C , Office (45078)Indication: Diabetes type 2, controlled On: :07 Request Planned Encounters Medical; 3 Month FU - On: 11-Jul-2018 8:30 Comprehensive Internal Medicine Louann Alejandre CNP, CNP, Mary E Planned Procedures Toradol Injection, 30 mg On: 06-Jun-2018 Intent (J1885)By: Sera Adrian Comments: nut40280/2020Ldltd, IM30mg/mlMLONG Radiology - Lumbar SpineBy: On: 06-Jun-2018 [...] On: 27-Aug-2017 Intent (J1885)By: Louann Alejandre CNP, CNP, Mary E Planned Medications INJECTION, KETOROLAC TROMETHAMINE, PER 15 MG Ordered: 27-Aug-2017 Pending Louann Alejandre CNP, CNP, Mary E INJECTION, KETOROLAC TROMETHAMINE, PER 15 MG Ordered: 03-Jun-2018 Pending Louann Alejandre CNP, CNP, Louann Hernández INJECTION, KETOROLAC TROMETHAMINE, PER 15 MG Ordered: [...] Instructions Indication: Hyperglycemia Encounters Office Visit On: 06-Jun-2018 9:35 Encounter Reason: [...] go home, Then went to ER in [place], they looked in ears. Went to [facility] doctor h ad ear cleaned out, [...] Cataract(s): Having cataract surgery next [facility] Encounter Diagnosis: BMI 28.0-28.9,adult, Former smoker, Pulmonary [...] education class at hospital. 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 Encounter [...] (gastroesophageal reflux disease), History of inguinal hernia [facility] Internal Medicine [facility] Slaughter; karen guarantor
--- OUTSIDE RECORDS SUMMARY | 2018-11-14 20:19 | XMS RPT_ITS | Continuity of Care Document ---
:1965 Author Organization [facility] Address 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 in Sep 2017 Status: Active [...] thru [facility], seeing Debo borderline high Bp Status: Active Hearing deficit (H91.90, V41.2) Comments: [...] 130/90 and 138/98 will put on BP med Status: Active Hypertriglyceridemia (E78.1, 272.1) Comments: on [...] cholecystectomy (Z90.49, V45.79) Comments: Age 21 at [place] Status: Active Syncope (R55, 780.2) Comments: seen in ER, work up in progress, ent, Mri brain etc Status: Active Unspecified Diagnosis Status: Active UTI symptoms (R39.9, 788.99) Status: Active Vitamin D deficiency (E55.9, 268.9) Comments: was 13.5 Status: Active Medications Name Dates Details AmLODIPine Besylate 5 MG Oral Tablet 1 (one) Tablet daily as directed for 0 days Quantity: 30 {Tablet} Refills: 11 Ordered:11-Jul-2018 Joseph MEDIA ACCOUNT EXECUTIVE, Louann Rausch MEDIA ACCOUNT EXECUTIVE, Corinna Start : 11-Jul-2018 Active Livalo 2 MG Oral Tablet 1 (one) Tablet Tablet qhs for 0 days Quantity: 42 {Tablet} Refills: 0 Ordered:13-Dec-2017 Slarb MAGALY Paulette Start : 05-Nov-2017 Active MetFORMIN HCl ER 500 MG Oral Tablet Extended Release 24 Hour 1 (one) Tablet bid for 0 days Quantity: 60 {Tablet} Refills: 6 Ordered:11-Jul-2018 Joseph MEDIA ACCOUNT EXECUTIVE, Louann Rausch MEDIA ACCOUNT EXECUTIVE, Louann Hernández Start : 11-Jul-2018 Active ReliOn Confirm Glucose Monitor w/Device Kit 1 (one) Kit Kit once for 0 days Quantity: 1 {Applicator} Refills: 0 Ordered:15-Mar-2017 Slarb MANAGER METAL, Paulette Start : 15-Mar-2017 Active ReliOn Confirm/micro Test In Vitro Strip 1 (one) Strip Strip test twice daily for 0 days Quantity: 60 {Strip} Refills: 6 Ordered:15-Mar-2017 Slarb MANAGER METAL, Paulette Start : 15-Mar-2017 Active ReliOn Lancets Ultra-Thin 30G Miscellaneous 1 (one) Misc Misc twice daily for 0 days Quantity: 100 {Unspecified} Refills: 3 Ordered:15-Mar-2017 Slarb MANAGER METAL, Paulette Start : 15-Mar-2017 Active Tylenol 325 MG Oral Capsule 1 (one) Capsule Capsule q6 hrs for 0 days Quantity: 30 {Capsule} Refills: 0 Ordered:06-Jun-2018 Long Nicole MCKENZIE L Start : 03-Jun-2018 Active Tylenol 500 MG Oral Capsule [id number] (500 MG) Active Vitamin D3 Maximum Strength 5000 UNIT Oral Capsule 1 (one) Capsule Capsule daily for 0 days Quantity: 30 {Capsule} Refills: 0 Ordered:13-Dec-2017 Slarb MANAGER METAL Paulette Start : 05-Nov-2017 Active Cyclobenzaprine HCl [...] 4 Views Result: Comments: See Note; NOTES: [facility] Imaging Services [address] [place] [address] L/S Spine Min 4 Views MR#: [id number] Acct: [id number] Name: YOLY SLAUGHTER Rep #: [id number] : 1965 M 52 From: Jose Alcantara DO PCP: Louann Alejandre NP Status: REG CLI Study: L/S Spine Min 4 Views Date of Exam: 06/06/18 Exam# [id number] Ordering Dr: Sera Adrian NP-Henny STUDY: X-RAY - CRISTINA MBAR SPINE REASON [...] Service support , CC: Louann Alejandre NP; CARBON ACCOUNTANT-C Sera Adrian Batch Tester: Signed 03-Jun-2018 Emergency Department Summary Result: Comments: See Note; NOTES: [facility] Medical Records Department [address] [place] [address] Emergency Department Summary 06/03/181915 MR#: [id number] Acct: [id number] Name: YOLY SLAUGHTER Rep #: [id number] : 1965 52 From: Emily Perez MD [...] right hand/forearm This note was generated with [employer] dictation software. It may contain incorrect words, [...] problems, contact your Primary Care Provider. Call [facility] ([phone]) or report to the closest Emergency Room. Call 911 if necessar y. 06/03/18 3641 <Electronically signed by Emily Perez MD> Date Emily Perez MD Cosigner Signature (If Indicated): Date CC: Louann Alejandre NP 03-Jun-2018 Discharge Instruction Result: Comments: See Note; NOTES: [facility] Medical Records Department [address] [facility] [address] Discharge Instruction 06/03/181917 MR#: [id number] Acct: [id number] Name: YOLY SLAUGHTER Rep #: [id number] : 1965 52 From: Emily Perez MD PCP: Louann Alejandre NP Status: REG ER ED Disposition - Plan for ED Patient: Disposition: Home or Assisted Living Chief Complaint: Bi te Instructions: ED Bite Dog Prescriptions: Amox/Clavulanate Tablet [Augmentin Tablet] 875 mg PO Q12H #20 tablet Referrals: Louann Alejandre, CARBON ACCOUNTANT-C [Primary Care Provider] - 5-7 Days What to do if you have Problems For any increased pain, shortness of breath, bleeding, nausea or vomiting, chest pain, or any unexpected problems, contact your Primary Care Provider. Call [facility] ([phone]) or rachelle chadwick to the closest Emergency Room. Call 911 if necessary. 06/03/181918 <Electronically signed by Emily Perez MD> Date Emily rea MD Cosdarcyer Signature (If Indicated): Date CC: Louann Alejandre NP 03-Jun-2018 Forearm 2 Views Result: Comments: See Note; NOTES: [facility] Imaging Services [address] [place] [address] Forearm 2 Views MR#: [id number] Acct: [id number] Name: YOLY SLAUGHTER Jay Rep #: [id number] DO B: 1965 M 52 From: Sarah Sow MD PCP: Louann Alejandre NP Status: PRE ER Study: Forearm 2 Views Date of Exam: 06/03/18 Exam# [id number] Ordering Dr: Emily Perez MD STUDY: X-RAY [...] CC: Louann Alejandre NP; Emily Perez MD Batch Tester: Signed 03-Jun-2018 Hand Min 3 Views Result: Comments: See Note; NOTES: [facility] Imaging Services [address] [place] [address] Hand Min 3 Views MR#: [id number] Acct: [id number] Name: KASANDRAYOLY Rep #: [id number] D OB: 1965 M 52 From: Carol Mott MD PCP: Louann Alejandre NP Status: REG ER Study: Hand Min 3 Views Date of Exam: 06/03/18 Exam# [id number] Ordering Dr: Emily Perez MD STUDY: X-RAY [...] CC: Louann Alejandre NP; Emily Perez MD Batch Tester: Signed 09-May-2018 Pulmonary Visit Report Result: Comments: See Note; NOTES: [facility] [address] [place] [address] OFFICE VISIT Date of Service: 05/09/18 MR#: [id number] Acct: [id number] Name: YOLY HAGEN Rep #: [id number] : 1965 Provider: Jazzy Rey Age/Sex: 52/M Location: [facility].PMW Status: Signed Assessment AND Plan 1. Pulmonary [...] months. Plan Detail Follow Up 6 Months ([facility]) HPI 3 M FU: Chief Complaint: Sh [...] PO QDAY tab 10/05/17 [History Confirmed 05/09/18] [facility] Medical History (Reviewed @ 14:12 by Jazzy Rey CARBON ACCOUNTANT-C) Ejaculation blood (Acute) Hematuria (Acute) Hepatomegaly (Acute) [...] W/WO Contrast Result: Comments: See Note; NOTES: [facility] Imaging Services [address] [place] [address] Brain W/WO Contrast MR#: [id number] Acct: [id number] Name: YOLY SLAUGHTER Jay Rep #: [id number] : 1965 M 52 From: Rosario Choudhury MD PCP: Louann Alejandre NP Status: REG CLI Study: Brain W/WO Contrast Date of Exam: 03/14/18 Exam# [id number] Ordering Dr: Rogerio Velázquez MD STUDY: MRI [...] at 14:01 EDT Tel , Service support [phone], CC: Louann Alejandre NP; Venancio Velázquez MD Batch Tester: Signed 03-Mar-2018 Pulmonary Function Report Comp Result: Comments: See Note; NOTES: [facility] Pulmonary Services/Neurology [address] [place] [address] MR#: [id number] Acct: [id number] Name: YOLY SLAUGHTER Rep #: [id number] : 0 1965 52 From: Wilder Fallon MD Referring Dr: Wilder Fallon MD Status: REG CLI Ordering Dr: Date: Location: [facility] Sex: M C COMPLETE PULMONARY FUNCTION TEST INTERPRETATION Brief HPI: Patient is a [age] year old male, currently under the care of myself, who presents to [facility] for complete pulmonary function tests secondary [...] Dictated: 03/03/18 1130 Date Transcribed: 03/03/18 1130 Batch Tester: DARLENE Signed 10-Feb-2018 Downtime Report Result: Comments: See Note; NOTES: [facility] Medical Records Department [address] [place] [address] Downtime Report MR#: [id number] Acct: [id number] Name: YOLY SLAUGHTER Rep #: [id number] : 1965 52 From: Zac Gonzalez PCP: Louann Alejandre NP Status: REG CLI This patient was seen during an EMR downtime January 24, 2018 - January 31, 2018. This patient may have a combination of pa per and electronic documentation or all paper documentation. All documentation is viewable within the e-chart portion of Service Seeking for each patient visit. 09-Feb-2018 Pulmonary Visit Report Result: Comments: See Note; NOTES: [facility] [place] [address] [place] [address] OFFICE VISIT Date of Service: 02/09/18 MR#: [id number] Acct: [id number] Name: YOLY HAGEN Rep #: [id number] : 1965 Provider: Wilder Fallon MD Age/Sex: 52/M Location: [facility].PMW Status: Signed Assessment AND Plan 1. Sarcoidosis [...] discuss the possibility of obstructive sleep apnea leadjose j donaldson to patient's current situation, but he [...] PO QDAY tab 10/05/17 [History Confirmed 02/09/18] [facility] Medical History (Reviewed 02/09/18 @ 07:19 b [...] Cosigner Signature: Date (if applicable) CC: Louann Joseph MORALES 26-Jan-2018 Chest WITH Contrast Result: Comments: See Note; NOTES: [facility] Imaging Services [address] [place] [address] Chest WITH Contrast MR#: [id number] Acct: [id number] Name: YOLY SLAUGHTER Rep #: [id number] : 1965 M 52 From: Corey Fofana MD PCP: Joseph MORALES Louann Status: REG CLI Study: Chest WITH Contrast Date of Exam: 01/24/18 Exam# [id number] Ordering Dr: Wilder Fallon MD STUDY: CT [...] , CC: Louann Will; Wilder Fallon MD Batch Tester: Signed 10-Nov-2017 Pulmonary Visit Report Result: Comments: See Note; NOTES: [facility] [place] [address] [place] [address] OFFICE VISIT Date of Service: 11/09/17 MR#: [id number] Acct: [id number] Name: YOLY HAGEN Rep #: [id number] : 1965 Provider: Wilder Fallon MD Age/Sex: 52/M Location: [facility].PMW Status: Signed Assessment AND Plan 1. Sarcoidosis [...] states that he has not seen the lightning rod installer as recommended by his diabetes physician. Patient [...] PO QDAY tab 10/05/17 [History Confirmed 11/09/17] [facility] Medical History Ejaculation blood (Acute) Hematuria (Acute) [...] signed by Wilder Fallon MD> Date ___ Wiledr Fallon MD Cosigner Signature: Date (if applicable) CC: Louann Alejandre NP 29-Oct-2017 Operative Report Result: Comments: See Note; NOTES: [facility] Medical Records Department [address] [place] [address] Operative Report 10/29/17 1340 MR#: [id number] Acct: [id number] Name: KASANDRALUCY Rep #: [id number] : 1965 52 From: Yaya Kaur DO PCP: Louann Alejandre NP Status: [facility] Y Location: [place] [address] Operative Report Date of Procedure: 10/29/17 BRONCHOSCOPY [...] and hilar lymphadenopathy P HYSICIAN: Yaya Kaur, DO ANESTHETIC: This procedure was completed under [...] Date Yaya Kaur DO CC: Louann Alejandre CARBON ACCOUNTANT; Yaya Kaur D.O. Signed 07-Oct-2017 Pulmonary Visit Report Result: Comments: See Note; NOTES: Pulmonary Medicine [address] [place] [address] OFFICE VISIT Date of Service: 10/06/17 MR#: [id number] Acct: [id number] Name: YOLY HAGEN Rep #: [id number] : 1965 Provider: Wilder Fallon MD Age/Sex: 52/M Location: [facility].PMW Status: Signed with Addenda ADDENDUM by Wilder [...] Date Wilder Fallon MD cc: Louann Alejandre CARBON ACCOUNTANT * Signed Assessment AND Plan 1. Dyspnea [...] most appropriate first step. Will refer to [facility] surgery. If unable to obtain biopsy [...] Other Orders Orders: Follow Up 6 Weeks ([facility]) HPI CARMEN alejandre referral: Chief Complaint: Abnormal [...] 10/06/17 Weight: 79.379 kg Intake Visit Reasons: CARBON ACCOUNTANT joseph referral Accompanied by: Self Allergies No [...] ascites or epigastric tenderness Genitourinary: Positive deferred [facility] Musculoskeletal: Positive steady gait; negative using an [...] (min) 65 Greater than 50% i n yllb-iz-xtuo conversation discussing situation. Multiple phone calls 10/07/17 0540 <Electronically signed by Wilder Fallon MD> Date Br jack Fallon MD Cosigner Signature: Date (if applicable) CC: Louann Alejandre NP 07-Oct-2017 Pulmonary Visit Report Result: Comments: See Note; NOTES: [facility] of [address] [place] [address] OFFICE VISIT Date of Service: 10/06/17 MR#: [id number] Acct: [id number] Name: YOLY HAGEN Rep #: [id number] : 1965 Provider: Wilder Fallon MD Age/Sex: 52/M Location: [facility].PMW Status: Signed Assessment AND Plan 1. Dyspnea [...] [facility]. Patient has had multiple interventions [...] 10/06/17 Weight: 79.379 kg Intake Visit Reasons: CARBON ACCOUNTANT ciesa referral Accompanied by: Self Allergies No Known Allergies Allergy (Verified 10/06/17 06:50) Medications metformin 500 mg tablet 500 mg PO QDAY tab 10/05/17 [History Confirmed 10/06/17] [facility] History (Review ed 10/06/17 @ [...] Spent (min) 65 Greater than 50% in hmlh-io-tuuf conversation discussing situation. Multiple phone calls 10/07/17 0540 <Electronically signed by Wilder Fallon MD> Date Wilder Fallon MD Cosigner Signature: Date (if applicable) CC: Louann Alejandre CARMEN 2-Sep-2017 PET/CT Tumor Base -Thigh Init Result: Comments: See Note; NOTES: [facility] Imaging Services [address] [place] [address] PET/CT Tumor Base -Thigh Init MR#: [id number] Acct: [id number] Name: YOLY SLAUGHTER Rep # : [id number] : 1965 M 52 From: Carlos Yadav DO PCP: Louann Alejandre NP Status: REG CLI Study: PET/CT Tumor Base -Thigh Init Date of Exam: 09/27/17 Exam# [id number] Ordering Dr: Sera Adrian CARBON ACCOUNTANT-C EXAMINATION: FDG PET CT INDICATIONS: A 52-year-old [...] 22:59 EST Tel , Service support [phone], CC: Louann Alejandre NP; CARMEN-C Sera Adrian Batch Tester: Signed 13-Sep-2017 Chest WITH Contrast Result: Comments: See Note; NOTES: [facility] Imaging Services [address] [place] [address] Chest WITH Contrast MR#: [id number] Acct: [id number] Name: YOLY SLAUGHTER Jay Rep #: [id number] : 1965 M 52 From: Mamadou Peck DO PCP: Louann Alejandre NP Status: REG CLI Study: Chest WITH Contrast Date of Exam: 09/13/17 Exam# [id number] Ordering Dr: Sera Adrian CARBON ACCOUNTANT-Henny STUDY: CT CHEST WITH CONTRAST REASON FOR [...] (ET). CC: Louann Alejandre NP; GUERLINE Adrian Batch Tester: Signed 30-Aug-2017 Abdomen/Pelvis without Cont Result: Comments: See Note; NOTES: [facility] Imaging Services [address] [place] [address] Abdomen/Pelvis without Cont MR#: [id number] Acct: [id number] Name: YOLY SLAUGHTER Rep #: [id number] : 1965 M 51 From: Jose Alcantara DO PCP: Louann Alejandre NP Status: REG CLI Study: Abdomen/Pelvis without Cont Date of Exam: 08/30/17 Exam# [id number] Ordering Dr: Sera Adrian STUD Y: CT [...] , CC: Louann Alejandre NP; GUERLINE Adrian Batch Tester: Signed 17-May-2017 Sinus/Facial Bone Result: Comments: See Note; NOTES: [facility] Imaging Services [address] [place] [address] Sinus/Facial Bone MR#: [id number] Acct: [id number] Name: YOLY SLAUGHTER Rep #: [id number] : 1965 M 51 From: Craig Jackson MD PCP: Louann Alejandre Status: REG CLI Study: Sinus/Facial Bone Date of Exam: 05/17/17 Exam# [id number] Ordering Dr: Rogerio Velázquez MD STUDY: CT [...] , CC: Louann Alejandre; Venancio Velázquez MD Batch Tester: Signed Family History Unknown Family Member Name Dates Details Father Comments: Diabetes Status: Active Social History Name Dates Details Alcohol use: Occasional alcohol use. Status: Active Drug Use Comments: Marijuana Status: Active Living Situation: Lives alone. Status: Active Tobacco use: Never smoker. Status: Active Smoking Status Name Dates Details Never smoker Vital Signs Date Test Result Details :10 Comments: bp recheck 138/98 Temperature 96.3 f [...] kg/m2 Body Surface Area Calculated 1.89 m2 :55 Temperature 98.1 f Comments: Method: Temporal [...] 1.92 m2 Results Date Description Value Details :14 Blood Glucose , Office (80053) Comments: 163 Blood Glucose , Office 163 (Normal) :14 HgA1C , Office (59943) Comments: 7.0 HgA1C , Office 7.0 % (Normal) Range: 4.6 - 7.1 56-Jcl-395531:16 CALCIFEDIOL (91520) Comments: PATIENT WAS FASTINGPERFORMED BY: [facility] [facility] [place] [id number] Vitamin D, 25-Hydroxy 47.5 ng/mL (Normal) Range: 30.0-100.0 Comments: Vitamin D deficiency has been defined by the [place] ofMedicine and an Endocrine Society practice guideline as alevel of serum 25-OH vitamin D less than 20 ng/mL (1,2).The Endocrine Society went on to further define vitamin Dinsufficiency as a level between 21 and 29 ng/mL (2).1. IOM ([place] of Medicine). 2010. Dietary reference intakes for calcium and D. [place]: The National Academies Press.2. Douglsa MF, Ze NC, Kendall BAY, et al. Evaluation, treatment, and prevention of vitamin D deficiency: an Endocrine Society clinical practice guideline. JCEM. 2010; 96(7):1911-30. 57-Qgp-980633:16 CBC, Platelets & Auto Diff Comments: PATIENT WAS FASTINGPERFORMED BY: [email or web address] [facility] K[address]jj[address] [facility] [place] [id number] ([address]) Immature Grans (Abs) 0.0 {x10E3/uL} (Normal) Range: [...] 4.14-5.80 WBC 7.2 {x10E3/uL} (Normal) Range: 3.4-10.8 00-Irp-204102:16 Metabolic Panel, Comprehensive Comments: PATIENT WAS FASTINGPERFORMED BY: LabCoJFK Johnson Rehabilitation InstituteEwnmmm9701 [facility] [id number] (55951) ALT (SGPT) 21 [iU]/L (Normal) Range: 0-44 [...] 6-24 Glucose 120 mg/dL (Abnormal) Range: 65-99 22-Rdl-721886:16 TSH (THYROID STIMULATING Comments: PATIENT WAS FASTINGPERFORMED BY: LabCoJFK Johnson Rehabilitation InstituteXepbuq6329 [facility] [id number] HORMONE) (89523) TSH 1.160 {uIU/mL} (Normal) Range: 0.450-4.500 72-Cuk-124318:16 LIPID PANEL (36658) Comments: PATIENT WAS FASTINGPERFORMED BY: LabCoJFK [facility] Rehabilitation InstituteZjypzr8583 [facility] [id number] LDL/HDL Ratio 1.9 {ratio} (Normal) Range: 0.0-3.6 Comments: LDL/HDL Ratio Men Women 1/2 Avg.Risk 1.0 1.5 Av g.Risk 3.6 3.2 2X Avg.Risk 6.2 5.0 3X Avg.Risk 8.0 6.1 LDL Cholesterol Calc 91 mg/dL (Normal) Range: 0-99 VLDL Cholesterol Leroy 62 mg/dL (Abnormal) Range: 5-40 HDL Cholesterol 47 mg/dL (Normal) Triglycerides 311 mg/dL (Abnormal) Range: 0-149 Cholesterol, Total 200 mg/dL (Abnormal) Range: 100-199 45-Ykv-63822:50 HgA1C , Office (80553) HgA1C , Office 6.5 % (Normal) Range: 4.6 - 7.1 97-Fqq-69828:50 Blood Glucose , Office (22359) Blood Glucose , Office 140 (Normal) 57-Vuj-294822:04 T4, FREE (THYROXINE) (77372) Comments: PATIENT NOT FASTINGPERFORMED BY: SolovisJFK Johnson Rehabilitation InstituteXrrisg5631 [facility] [id number] T4,Free(Direct) 1.06 ng/dL (Normal) Range: 0.82-1.77 :04 T3, FREE (TRIDOTHYRONINE) (90088) Comments: PATIENT NOT FASTINGPERFORMED BY: SolovisJFK Johnson Rehabilitation InstituteYneqhm6493 [facility] [id number] Triiodothyronine,Free,Serum 3.3 pg/mL (Normal) Range: 2.0-4.4 :04 TSH (THYROID STIMULATING Comments: PATIENT NOT FASTINGPERFORMED BY: iiyumaDeckerville Community Hospital6370 [facility] [id number] HORMONE) (78511) TSH 0.879 {uIU/mL} (Normal) Range: 0.450-4.500 40-Yde-582431:48 Microscopic Examination Comments: PATIENT NOT FASTINGPERFORMED BY: i[facility]umaDeckerville [facility] Hospital6370 [facility] [id number] Bacteria None seen (Normal) Mucus Threads Present (Normal) Epithelial Cells (non renal) None seen {/hpf} (Normal) Range: 0 - 10 RBC 0-2 {/hpf} (Normal) Range: 0 - 2 WBC 0-5 {/hpf} (Normal) Range: 0 - 5 :26 LIPID PANEL (05618) Comments: PATIENT WAS FASTINGPERFORMED BY: [facility]De[facility] Hospital6370 [facility] [id number] VLDL Cholesterol Leroy VLDLCH mg/dL (Normal) Range: 5-40 Comments: The calculation for the VLDL cholesterol is not valid whentriglyceride level is >400 mg/dL.Triglyceride result indicated is too high for an accurate LDLcholesterol estimation. HDL Cholesterol 44 mg/dL (Normal) Triglycerides 501 mg/dL (Abnormal) Range: 0-149 Cholesterol, Total 205 mg/dL (Abnormal) Range: 100-199 28-Bgv-884449:26 CALCIFEDIOL (53949) Comments: PATIENT WAS FASTINGPERFORMED BY: [facility]De[facility] Hospital6370 [facility] [id number] Vitamin D, 25-Hydroxy 13.5 ng/mL (Abnormal) Range: 30.0-100.0 Comments: Vitamin D deficiency has been defined by the [place] ofLakehealth Tripoint Medical Centercine and an Endocrine Society practice guideline as alevel of serum 25-OH vitamin D less than 20 ng/mL (1,2).The Endocrine Society went on to further define vitamin Dinsufficiency as a level between 21 and 29 ng/mL (2).1. IOM ([place] of Medicine). 2010. Dietary reference intakes for calcium and D. [place]: The National AcademService Seeking Press.2. Douglas MF, Ze MORA, Kendall BAY, et al. Evaluation, treatment, and prevention of vitamin D deficiency: an Endocrine Society clinical practice guideline. JCEM. 2010; 96(7):1911-30. 05-Fxm-496327:26 Metabolic Panel, Comprehensive Comments: PATIENT WAS FASTINGPERFORMED BY: LabDeckerville [facility] Hospital6370 [facility] [id number] (36929) ALT (SGPT) 13 [iU]/L (Normal) Range: 0-44 [...] Glucose, Serum 174 mg/dL (Abnormal) Range: 65-99 91-Yao-529587:26 TSH (39141) Comments: PATIENT WAS FASTINGPERFORMED BY: [employer] Cuysdw4894 [facility] [id number] TSH 0.218 {uIU/mL} (Abnormal) Range: 0.450-4.500 25-Jba-042654:26 CBC, Platelets & Auto Diff Comments: PATIENT WAS FASTINGPERFORMED BY: [employer] Timkwh1267 [facility] [id number] (01908) Immature Grans (Abs) 0.0 {x10E3/uL} (Normal) Range: [...] (Normal) Range: 3.4-10.8 :48 URINALYSIS, W/ MICRO (36302) Comments: PATIENT NOT FASTINGPERFORMED BY: [facility] Nzdpqc4933 [facility] [id number] Microscopic Examination See below: (Normal) Comments: Microscopic was indicated and was performed. Nitrite, Urine Negative (Normal) Urobilinogen,Semi-Qn 0.2 mg/dL (Normal) Range: 0.2-1.0 Bilirubin Negative (Normal) Occult Blood Trace (Abnormal) Ketones Negative (Normal) Glucose Negative (Normal) Protein Negative (Normal) WBC Esterase Negative (Normal) Appearance Clear (Normal) Urine-Color Yellow (Normal) pH 5.0 (Normal) Range: 5.0-7.5 Specific [place] 1.029 (Normal) Range: 1.005-1.030 :57 Blood Glucose , Office (61482) Blood Glucose , Office 192 (Normal) :57 HgA1C , Office (62579) HgA1C , Office 6.2 % (Normal) Range: 4.6 - 7.1 :54 Bedside Glucose Comments: [facility] [address] [place] [address] BEDSIDE GLU 140 mg/dL (Abnormal) Range: 70-110 Comments: MANAGEMENT OF PATIENT CARE PER NURSING PROTOCOL :0 ASPIRATION (SLIDES See Note (Normal) Comments: [facility] [address] [place], [address] 0 ONLY) Comments: Patient: YOLY SLAUGHTER : 1965 (52/M) Acct Num: [id number] Phys: Yaya Kaur D.O. Unit Num: [id number] Loc: EN Specimen: [id number] Received: 11/01/17541 Spec [...] flow cytometry. / FA:efra 10/29/17 TC:5 CPT: 00997 x4, 97002 x4, 84079 x9, 60077 x4, 25353 x2 CYTOLOGY STUDY Slides are reviewed. N. [...] Signed Dylan Miller 11/02/17 <signature on file> 0-Etf-155688:00 CBC W/Diff, Automated Comments: [facility] [id number] [place], [address] Absolute Lymph 1.28 {X10_3/ul} (Normal) Range: 0.83-4.51 [...] 4.6-6.2 WBC 5.3 K/mm3 (Normal) Range: 4.4-11.0 0-Swj-169513:00 Partial Thromboplast Time Comments: [facility] [address] [place], [id number] PTT 31.7 s (Normal) Range: 24.1-36.2 8-Hvc-582438:00 Prothrombin Time w/INR Comments: [facility] [address] [place], [address] INR 1.0 (Normal) PROTIME 13.6 s (Normal) Range: 11.7-14.9 28-Jyt-701835:56 urine immunofixation (74646) Comments: PATIENT NOT FASTINGPERFORMED BY: MIT CSHub70 Cormier [facility]YouAt[facility] [id number] KENIA Interpretation:U UPEIP (Normal) Comments: No monoclonality detected. :56 serum immunofixation (41616) Comments: PATIENT NOT FASTINGPERFORMED BY: MIT CSHub70 [facility] [id number] Immunoglobulin M, Qn, Serum 36 mg/dL (Normal) Range: 20-172 Immunoglobulin A, Qn, Serum 219 mg/dL (Normal) Range: 90-386 Immunoglobulin G, Qn, Serum 1156 mg/dL (Normal) Range: 700-1600 Immunofixation Result, Serum UPEIP (Normal) Comments: No monoclonality detected. :56 serum free light chains Comments: PATIENT NOT FASTINGPERFORMED BY: DinnerTime6370 Cormier WangYouAt[facility] [id number] (22182) [place] [address]/Lambda Ratio,S 1.17 (Normal) Range: 0.26-1.65 Free Lambda Lt Chains,S 15.8 mg/L (Normal) Range: 5.7-26.[address] Lt Chains,S 18.5 mg/L (Normal) Range: 3.3-19.4 :56 UPEP (26353) Comments: PATIENT NOT FASTINGPERFORMED BY: DinnerTime6370 [facility] [id number] Please note: SPRCS (Normal) Comments: Protein electrophoresis scan will follow via computer, mail, orcourier delivery. M-Calderon, % 5.4 % (Abnormal) Gamma Globulin, U 21.6 % (Normal) Beta Globulin, U 36.9 % (Normal) Fkpzi-8-Twytpgup, U 11.2 % (Normal) Qtyzk-5-Niyuhalm, U 4.0 % (Normal) Albumin, U 26.3 % (Normal) Protein,Total,Urine 25.9 mg/dL (Normal) 85-Thx-699371:56 SPEP (67005) Comments: PATIENT NOT FASTINGPERFORMED BY: LabCoJFK Johnson Rehabilitation InstituteDkkxcr0138 [facility] [id number] Please note: SPRCS (Normal) Comments: Protein electrophoresis scan will follow via computer, mail, orcourier delivery. A/G Ratio 1.2 (Normal) Range: 0.7-1.7 Globulin, Total 3.3 g/dL (Normal) Range: 2.2-3.9 M-Calderon Not Observed g/dL (Normal) Gamma Globulin 1.3 g/dL (Normal) Range: 0.4-1.8 Beta Globulin 1.1 g/dL (Normal) Range: 0.7-1.3 Awttw-0-Owpekola 0.7 g/dL (Normal) Range: 0.4-1.0 Htqok-6-Qugokdmt 0.2 g/dL (Normal) Range: 0.0-0.4 Albumin 3.9 g/dL (Normal) Range: 2.9-4.4 Protein, Total, Serum 7.2 g/dL (Normal) Range: 6.0-8.5 8-Suq-329967:30 Cytology, Body Fluid / CSF Comments: Specimen Source: [facility] [address] [place], [place], [id number] CYTOLOGY,BF/CSF SEE PATHOLOGY REPORT Comments: Specimen submitted [facility]. (Normal) 27-Sep-20170:00 CYTOSPIN ON FLUID See Note (Normal) Comments: [facility] [address] [place], [place], [id number] Comments: Patient: YOLY SLAUGHTER : 1965 (52/M) Acct Num: [id number] Phys: Kimberly JONES,Saurabh Unit Num: [id number] Loc: LABSPEC Specimen: [id number] Received: 09/27/17 - 1530 Spec T ype: CYSPIN FL TISSUES TISSUES: Urine CYTOLOGY GROSS Received is 70 ml of clear gold fluid labeled with the patient's name and and designated per the requisition as urine. Submitted for cytology preparation. 09/28/17 TC:2 CPT: 75934 CYTOLOGY STUDY Slides are reviewed. The specimen consists of neutrophils, red blood cells and a few benign urothelial ce lls. DIAGNOSIS CYTOLOGY Urine for cytology (cytospin): Negative for malignant cells. Acute inflammation. SJ:efra 09/29/17 HEADER OPERATION: Not noted PRE-OP DIAGNOSIS: Hemat uria TISSUE SUBMITTED: Urine for cytology Signed Dylan Miller 09/29/17 <signature on file> 49-Azf-296757:13 LEIDA (ANTINUCLEAR ANTIBODY) Comments: PATIENT NOT FASTINGPERFORMED BY: [email or web address] LabCoJFK Johnson Rehabilitation InstituteFylgmj3923 [facility] [id number] ([id number]) LEIDA Direct Negative (Normal) 80-Dom-65270:38 CREATININE FINGERSTICK Comments: [facility] LaboratoryPoint of [address] [place], [place] [address] EGFR WB > 60.0000 mL/min (Normal) CREATININE WB 1.0 mg/dL (Normal) Range: 0.70-1.30 57-Hgo-040374:44 METABOLIC PANEL, COMPREHENSIVE Comments: PATIENT NOT FASTINGPERFORMED BY: LabCoJFK Johnson Rehabilitation InstituteSpbvrd9474 [facility] [id number] (58081) ALT (SGPT) 18 [iU]/L (Normal) Range: 0-44 [...] Glucose, Serum 143 mg/dL (Abnormal) Range: 65-99 96-Brv-299231:44 KCDZQ-WJKQHLVASNH-JKZNC (75735) Comments: PATIENT NOT FASTINGPERFORMED BY: Sol[employer]is Stellarray [facility] [id number] AFP, Serum, Tumor Marker 2.2 ng/mL (Normal) Range: 0.0-8.3 Comments: Conchita ECLIA methodology 24-Jnm-508297:44 HEPATIC FUNCTION PANEL Comments: PATIENT NOT FASTINGPERFORMED BY: Solovis Yjwbrx1190 [facility] [id number] (16010) Bilirubin, Direct 0.32 mg/dL (Normal) Range: 0.00-0.40 05-Wam-660046:44 LDH (LD) (LACTATE DEHYDROGENASE) Comments: PATIENT NOT FASTINGPERFORMED BY: Clusterize [employer]ellarray [facility] [id number] (85686) LDH 150 [iU]/L (Normal) Range: 121-224 01-Uem-020039:44 PSA (PROSTATE SPECIFIC Comments: PATIENT NOT FASTINGPERFORMED BY: [employer] [facility] [id number] ANTIGEN) (55422) Prostate Specific Ag, 0.8 ng/mL (Normal) Range: 0.0-4.0 Serum Comments: Conchita ECLIA methodology. .According to the [employer], Serum PSA shoulddecrease and remain at undetectable levels after radicalprostatectomy. The AUA defines biochemical recurrence as an initialPSA value 0.2 ng/mL or greater followed by a subsequent confirmatoryPSA value 0.2 ng/mL or greater.Values obtained with d ifferent assay methods or kits cannot be usedinterchangeably. Results cannot be interpreted as absolute evidenceof the presence or absence of malignant disease. 2-Xxw-089069:49 METABOLIC PANEL, COMPREHENSIVE Comments: PATIENT NOT FASTINGPERFORMED BY: LabCoJFK Johnson Rehabilitation InstituteMzmuzq3037 [facility] [id number] (32621) ALT (SGPT) 14 [iU]/L (Normal) Range: 0-44 [...] Glucose, Serum 135 mg/dL (Abnormal) Range: 65-99 :49 SED RATE ERYTHROCYTE (15730) Comments: PATIENT NOT FASTINGPERFORMED BY: LabCoJFK Johnson Rehabilitation InstituteJtwznb8491 [facility] [id number] Sedimentation Rate-Westergren 2 mm/h (Normal) Range: 0-15 6-Hec-863937:49 CBC, PLATELETS & MANUAL DIFF Comments: PATIENT NOT FASTINGPERFORMED BY: LabCoJFK Johnson Rehabilitation InstituteFcmcom1365 [facility] [id number] (89915) Immature Grans (Abs) 0.0 {x10E3/uL} (Normal) Range: [...] 4.14-5.80 WBC 7.0 {x10E3/uL} (Normal) Range: 3.4-10.8 4-Mmp-831132:53 Urinalysis, Office (90777) UA - LEUKOCYTE ESTERASE Negative (Normal) UA - NITRITE Negative (Normal) URINE UROBILINGN CATHIE TIMED Normal mg/dL (Normal) UA - PROTEIN 30 mg/dL (Normal) UA - PH 6 (Abnormal) UA - BLOOD +++ (Abnormal) UA - SPECIFIC GRAVITY 1.025 (Normal) UA - KETONES Negative mg/dL (Normal) UA - BILIRUBIN Small (Normal) UA - GLUCOSE Negative (Normal) 4-Lnh-831086:38 URINE ROCIO CULTURE-IDENTIFICATN Comments: PATIENT NOT FASTINGPERFORMED BY: [employer] EngineeringTheravasc [place] [id number] Information: SRC: ([id number]) Result 1 MUG (Normal) Comments: Mixed urogenital flora1,000 Colonies/mL Urine Culture,Comprehensive Final report (Normal) 9-Soa-460811:22 Urinalysis, Office (93480) UA - LEUKOCYTE ESTERASE Negative (Normal) UA - NITRITE Negative (Normal) URINE UROBILINGN CATHIE TIMED 2 mg/dL (Normal) UA - PROTEIN Trace mg/dL (Normal) UA - PH 7 (Normal) UA - BLOOD Non Hemolyzed Moderate (Normal) UA - SPECIFIC GRAVITY 1.020 (Normal) UA - KETONES Negative mg/dL (Normal) UA - BILIRUBIN Negative (Normal) UA - GLUCOSE Negative (Normal) :54 HgA1C , Office (33720) HgA1C , Office 6.4 % (Normal) Range: 4.6 - 7.1 :53 Blood Glucose , Office (40401) Blood Glucose , Office 176 (Normal) :35 Blood Glucose , Office (28810) Comments: 136 Blood Glucose , Office 136 (Normal) :35 HgA1C , Office (82288) Comments: 6.4 HgA1C , Office 6.4 % (Normal) Range: 4.6 - 7.1 44-Qpq-584392:49 CBC With Differential/Platelet Comments: PATIENT WAS FASTINGPERFORMED BY: [email or web address] LabGenniusrp SeemageCone [facility] [id number] Immature Grans (Abs) 0.0 {x10E3/uL} (Normal) Range: [...] 4.14-5.80 WBC 6.3 {x10E3/uL} (Normal) Range: 3.4-10.8 15-Csg-246216:49 Comp. Metabolic Panel (14) Comments: PATIENT WAS FASTINGPERFORMED BY: LabCoJFK Johnson Rehabilitation InstituteMflwij2797 [facility] [id number] ALT (SGPT) 22 [iU]/L (Normal) Range: 0-44 [...] Glucose, Serum 152 mg/dL (Abnormal) Range: 65-99 46-Dpa-521481:49 Lipid Panel With LDL/HDL Comments: PATIENT WAS FASTINGPERFORMED BY: [employer] & Davies Mechanical EngineeringCone Health [facility] [id number] Ratio LDL/HDL Ratio 1.7 {ratio_units} Range: 0.0-3.6 [...] {uIU/mL} (Normal) Comments: PATIENT WAS FASTINGPERFORMED BY: MIT CSHub70 IPICOCone Health Moses Cone Hospital [id number] 11:49 Range: 0.450-4.500 62-Qlm-84614:07 Blood Glucose , Office (63915) Blood Glucose , Office 168 (Normal) Plan of Care Name Dates Details Instructions Abnormal TSH : Follow up in 2 [...] Vitamin D deficiency Pulmonary sarcoidosis : Reviewed Electrical Design Technician Letter Indication: Pulmonary sarcoidosis Pulmonary sarcoidosis : Eprescribed prescriptions (G8553) Indication: Pulmonary sarcoidosis BMI 28.0-28.9,adult : Follow up in 6 weeks Indication: BMI 28.0-28.9,adult Diabetes type 2, controlled : Eprescribed prescriptions (G8553) Indication: Diabetes type 2, controlled BMI 28.0-28.9,adult : Follow up in 3 months Indication: BMI 28.0-28.9,adult Mediastinal adenopathy : Reviewed Electrical Design Technician Letter Indication: Mediastinal adenopathy Mediastinal adenopathy : Reviewed Diagnostic Tests Indication: Mediastinal adenopathy Mediastinal adenopathy : Reviewed Lab Indication: Mediastinal adenopathy Hematuria : Reviewed Electrical Design Technician Letter Indication: Hematuria Hematuria : Reviewed Lab [...] Eprescribed prescriptions (G8553) Indication: Hyperglycemia Planned Observations MICROALBUMIN: CREATININE RATIO (35147) AND (83326)Indication: Hypertension On: 32-Mtg-036871:24 Request Metabolic Panel, Comprehensive (21597)Indication: Diabetes type 2, controlled On: 92-Yah-51891:39 Request CBC, Platelets & Auto Diff (46010)Indication: Headache On: 93-Kzg-55179:39 Request TSH (THYROID STIMULATING HORMONE) (48586)Indication: Abnormal TSH On: 79-Tph-18944:38 Request CALCIFEDIOL (18240)Indication: Vitamin D deficiency On: 42-Cgs-97195:36 Request LIPID PANEL (87344)Indication: Hypertriglyceridemia On: :33 Request Metabolic Panel, Comprehensive (21516)Indication: Kidney stones On: :25 Request Comments: Jun 2017 LIPID PANEL (47125)Indication: Hypertriglyceridemia On: :24 Request Comments: Jun 2017 fasting Metabolic Panel, Comprehensive (71573)Indication: Diabetes type 2, controlled On: :39 Request Lipid Panel (61270)Indication: Diabetes type 2, controlled On: :39 Request MICROALBUMIN: CREATININE RATIO (48760) AND (54096)Indication: Diabetes type 2, controlled On: :39 Request URINALYSIS (20936)Indication: Diabetes type 2, controlled On: :39 Request CBC, Platelets & Auto Diff (99935)Indication: Diabetes type 2, controlled On: :39 Request TSH (88167)Indication: Diabetes type 2, controlled On: :39 Request HgA1C , Office (54505)Indication: Diabetes type 2, controlled On: :07 Request Planned Procedures ELECTROCARDIOGRAM, COMPLETE (ECG) On: 11-Jul-2018 Intent (19080)By: Louann Alejandre CNP, CNP, Louann Hernández Toradol Injection, 30 mg (J1885)By: On: 06-Jun-2018 Intent Sera Adrian Comments: cxv62188/2020Ldltd, IM30mg/mlMLONG Radiology - Lumbar SpineBy: Nguyễn, On: 06-Jun-2018 Intent Srea Toradol Injection, 30 mg (J1885)By: On: 03-Jun-2018 Intent Louann Alejandre CNPa MARISABEL, Corinna PET ScanBy: Sera Adrian On: 14-Sep-2017 Intent Comments: * Providers fill out PET scan order form CT - Chest (IV Contrast Needed)By: On: 02-Sep-2017 Intent Sera Adrian Comments: 6.3mm Nodule Left Lung Base CT - Abdomen & Pelvis Stone ProtocolBy: On: 30-Aug-2017 Intent Sera Adrian Comments: STAT Toradol Injection, 30 mg (J1885)By: On: 27-Aug-2017 Intent Ciesa MEDIA ACCOUNT EXECUTIVE, Corinna Ciemersona MEDIA ACCOUNT EXECUTIVE, Corinna Planned Medications INJECTION, KETOROLAC TROMETHAMINE, PER 15 MG Ordered: 27-Aug-2017 Pending Ciesa MEDIA ACCOUNT EXECUTIVE, Corinna Ciesa MEDIA ACCOUNT EXECUTIVE, Corinna INJECTION, KETOROLAC TROMETHAMINE, PER 15 MG Ordered: 03-Jun-2018 Pending Ciesa MEDIA ACCOUNT EXECUTIVE, Corinna Ciesa MEDIA ACCOUNT EXECUTIVE, Corinna INJECTION, KETOROLAC TROMETHAMINE, PER 15 MG [...] Instructions Indication: Hyperglycemia Encounters Office Visit On: 11-Jul-2018 9:04 Encounter Reason: [...] go home, Then went to ER in [place], they looked in ears. Went to [place] [facility] doctor h ad ear cleaned out, [...] Cataract(s): Having cataract surgery next Wednesday at [facility] Encounter Diagnosis: BMI 28.0-28.9,adult, Former smoker, Pulmonary [...] education class at hospital. 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 Encounter [...] of inguinal hernia [facility] Payers [facility] Slaughter; karen guarantor
--- OUTSIDE RECORDS SUMMARY | 2018-11-14 20:19 | XMS RPT_ITS ---
:1965 Author Organization OHIP Support Name Relationship Address Phone JAMILA SLAUGHTER [address] + [place] [address] QUACA Unknown [address] + [place] [address] CARLEE LOPEZ Sister [address] + [place] [address] NONE Unknown Unavailable Unavailable NONE Unknown Unavailable Unavailable JAMILA SLAUGHTER [address] + [place] [address] [facility]ACA Unknown [address] + [place] [address] JESSICACARLEE Cam Sister [address] + [place] [address] [address] + [place] [address] [facility] Unknown [address] + [place] [address] JESSICA, CARLEE Sister [address] + [place] [address] [address] SLA[address] + [place] [address] [facility]ACA Unknown [address] + [place] [address] JESSICA, CARLEE Sister [address] + [place] [address] [address] SLAUGH[address] + [place] [address] [facility] [address] + [place] [address] JESSICACARLEE Cam Sister [address] [place] [address] [address] + [place] [address] [facility] Unknown [address] + [place] [address] JESSICA, CARLEE Sister [address] + [address] [place] [address] [address]A SLA[address] + [place] [address] [facility] Unknown [address] + [place] [address] JESSICA, CARLEE Sister [address] + [address] [place] [address] JAM[address]A SLAUGHTER [address] + [place] [address] [facility] Unknown [address] + [place] [address] JESSICA, CARLEE [facility] [address] + [address] [place] [address] NONE Unknown Unavailable Unavailable NONE Unknown Unavailable Unavailable JAMILA SLAUGHTER [address] + [place] [address] [facility] Unknown [address] + [place] [address] JESSICA, CARLEE [facility] [address] + [address] [place] [address] [address] + [place] [address] [place] Unknown [address] + [place] [address] JESSICA, CARLEE [facility] [address] [place] [address] [address] + [place] [address] [place] Unknown [address] + [place] [address] Jessica, [facility] . + [place] [address] [address] + [place] [address] [place] Unknown [address] + [place] [address] Carlee Lopez Sister . + [place] [address] JAMILA SLAUGHTER [address] + [place] [address] [place] Unknown [address] + [place] [address] Carlee Lopez Sister . + [place] [address] [address] + [place] [address] [facility] Unknown [address] + [place] [address] Carlee Lopez Sister . + [place] [address] [address] + [place] [address] [place] Unknown [address] + [place] [address] Carlee Lopez Sister . + [place] [address] JAMILA SLAUGHTER [address] + [place] [address] [place] Unknown [address] + [place] [address] [address] + [place] [address] [facility] Unknown [address] + [place] [address] [address] + [place] [address] [facility] Unknown [address] + [place] [address] [address]A SLAUGHTER [address] + [place] [address] [facility] Unknown [address] + [place] [address] Care Team Providers Name Role Phone NICOLLE PHILLIPS MD Attending Unavailable PHYSICIAN, NOT RECORDED Primary Care Unavailable JOHN JONES, BEVERLY Clarke JR. Attending Unavailable PHYSICIAN, NOT RECORDED Primary Care Unavailable HELADIO GRACIA Referring Unavailable ANDRES PARIS () Admitting Unavailable ANDRES PAIRS) Attending Unavailable BETTIE HINSON (MARISABEL) Attending Unavailable BETTIE HINSON (MARISABEL) Referring Unavailable VOGELBAUM, TANJA Referring Unavailable VOGELBAUM, TANJA Referring Unavailable VOGELBAUM, TANJA Referring Unavailable VOGELBAUM, TANJA Referring Unavailable VOGELBAUM, TANJA Attending Unavailable VOGELBAUM, TANJA Referring Unavailable VOGELBAUM, TANJA Referring Unavailable VOGELBAUM, TANJA Referring Unavailable YESSI CHOU Attending Unavailable VOGELBAUM, TANJA Referring Unavailable VOGELBAUM, TANJA Referring Unavailable VOGELBAUM, TANJA Attending Unavailable TELLYTMBOB FISCHER Referring Unavailable VOGELBAUM, TANJA Attending Unavailable VOGELBAUM, TANJA Referring Unavailable VOGELBAUM, TANJA Admitting Unavailable VOGELBAUM, TANJA Attending Unavailable Ciesa, Louann Attending Unavailable Ciesa, Louann Referring Unavailable Ciesa, Louann Consulting Unavailable Beverly Edmondson Attending Unavailable Beverly Edmondson Referring Unavailable Ciesa, [facility] Primary Care Unavailable IFEOMA LEAL Attending Unavailable IFEOMA LEAL Referring Unavailable Ciesa, [facility] Primary Care Unavailable Ciesa, Louann Attending Unavailable Ciesa, Louann Referring Unavailable Ciesa, [facility] Primary Care Unavailable Sera Adrian CONTROL CLERK AUDITING-C Attending Unavailable Sera Adrian CONTROL CLERK AUDITING-C Referring Unavailable Ciesa, [facility] Primary Care Unavailable Theodore Harris Attending Unavailable Ciesa, [facility] Primary Care Unavailable Theodore Harris Referring Unavailable Wilder Fallon Attending Unavailable Ciesa, Louann Referring Unavailable Ciesa, Louann Primary Care Unavailable Wilder Fallon Attending Unavailable Wilder Fallon Referring Unavailable Ciesa, Louann Primary Care Unavailable Yaya Kaur D.O. Attending Unavailable Yaya Kaur D.O. Referring Unavailable Ciesa, Louann Primary Care Unavailable Yaya Kaur D.O. Attending Unavailable Yaya Kaur D.O. Referring Unavailable Ciesa, Louann Primary Care Unavailable Yaya Kaur D.O. Consulting Unavailable Wilder Fallon Attending Unavailable Ciesa, Louann Referring Unavailable Jazzy Rey Attending Unavailable Ciesa, Louann Referring Unavailable Wilder Fallon Attending Unavailable Wilder Fallon Referring Unavailable Ciesa, Louann Primary Care Unavailable Wilder Fallon Attending Unavailable Ciesa, Louann Referring Unavailable Wilder Fallon Attending Unavailable Wilder Fallon Referring Unavailable Ciesa, Louann Primary Care Unavailable Rogerio Velázquez Attending Unavailable Rogerio Velázquez Referring Unavailable Ciesa, Louann Primary Care Unavailable Wilder Fallon Attending Unavailable Wilder Fallon Referring Unavailable Jazzy Rey Attending Unavailable Louann Ruiz Referring Unavailable Louann Ruiz Primary Care Unavailable Louann Ruiz Primary Care Unavailable Emily Perez Attending Unavailable Sera Adrian CONTROL CLERK AUDITING-C Attending Unavailable Sera Adrian CONTROL CLERK AUDITING-C Referring Unavailable Louann Ruiz Primary Care Unavailable Purpose Purpose PROBLEMS PROBLEMS DATE TYPE CONDITION / CODE ATTENDING STATUS SOURCE 2018 Active Other injury of ANDRES PARIS Active [facility] unspecified body (MD) Clinic Main region, initial [place] encounter / Repository T14.8XXA(ICD-10) 2018 Active Local infection of ANDRES PARIS Active [facility] the skin and (MD) Clinic Main subcutaneous tissue, [place] unspecified / Repository L08.9(ICD-10) 2018 Active Unspecified ANDRES PARIS Active [facility] infectious disease / (MD) Clinic Main B99.9(ICD-10) [place] Repository 09/06/2018 Active Headache / ANDRES PARIS Active [facility] R51(ICD-10) (MD) Clinic Main [place] Repository 09/06/2018 Active Other specified ANDRES PARIS Active [facility] postprocedural (MD) Clinic Main states / [place] Z98.890(ICD-10) Repository 09/06/2018 Active Personal history of ANDRES PARIS other diseases of (MD) Clinic Main the nervous system [place] and sense organs / Repository Z86.69(ICD-10) 09/06/2018 Active Extradural and ANDRES PARIS subdural abscess, () Clinic Main unspecified / [place] G06.2(ICD-10) Repository 09/06/2018 Active Infection and ANDRES PARIS Active [facility] inflammatory () Clinic Main reaction due to [place] other internal Repository orthopedic prosthetic devices, implants and grafts, initial encounter / T84.7XXA(ICD-10) 09/06/2018 Active Presence of other ANDRES PARIS bone and tendon () Clinic Main implants / [place] Z96.7(ICD-10) Repository 08/18/2018 Unknown 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, [facility]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 / Repository D43.0(ICD-10) 05/18/2018 Active Other acute VOGELBAUM, Active [place] postprocedural pain [facility] Main / G89.18(ICD-10) [place] Repository 05/17/2018 Active Encounter for other NA Active [facility] preprocedural Clinic Main examination / [place] Z01.818(ICD-10) Repository 05/19/2018 Active 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 / R59.0(ICD-10) Hospital Repository 10/29/2017 Unknown R06.09 - Other forms Yaya Kaur, Active [place] of dyspnea / [facility] R06.09(ICD-10) Hospital Repository 10/06/2017 Unknown R06.00 - Dyspnea, Vasyl, Wilder Active [place] unspecified / Community R06.00(ICD-10) Hospital Repository PROCEDURES PROCEDURES No Procedure Records FoundVITAL SIGNS VITAL SIGNS No Vital Signs Records FoundRESULTS RESULTS SERUM CREATININE AND Collected: 09/12/2018 Status: F Source: [place] GFR 9:15 AM [facility] REPOSITORY TYPE CODE TESTS RESULT OUT OF RANGE REFERENCE UNITS LAB L501.1100 0.70-1.30 mg/dL Normal 0.78 CREAT,SERUM Result Comment: The validity of the calculated GFR AND GFRAA in patients over 70 years has not been determined. Clinical correlation is essential. LAB L501.1110 >60 mL/min Normal EST GFR 111 Result Comment: Non- GFR Calc LAB L501.1115 >60 mL/min Normal EST GFR - AA 134 Result Comment: GFR Calc Performed By: #### L501.1105 #### [facility] [address] [place], [place], [id number] CBC W/DIFF, AUTOMATED Collected: 09/12/2018 Status: F Source: [place] 9:15 AM [facility] REPOSITORY TYPE CODE TESTS RESULT OUT OF RANGE REFERENCE UNITS LAB L100.1000 4.4-11.0 K/mm3 Normal WBC 8.5 LAB L100.1200 4.6-6.2 M/mm3 Normal RBC 5.17 LAB L100.1300 13.0-16.5 g/dl Normal HGB 15.5 LAB L100.1400 40-54 % Normal HCT 45.9 LAB L100.1500 80-94 fL Normal MCV 88.8 LAB L100.1600 27.0-32.0 pg Normal MCH 30.0 LAB L100.1700 32-36 g/gl Normal MCHC 33.8 LAB L100.1810 11.6-14.6 % Normal RDW CV 12.7 LAB L100.1820 35.1-43.9 fl Normal RDW SD 40.6 LAB L100.1900 150-450 K/mm3 Normal PLT 251 LAB L100.2000 6.2-12.0 fl Normal MPV 11.1 LAB L100.2100 47-70 % Normal NEUT% 65.2 LAB L100.2200 19-41 % Low LY% 17.5 LAB L100.2300 0-10 % High MONO% 10.4 LAB L100.2400 0-5 % Normal EO% 4.5 LAB L100.2500 0-1 % Normal BASO% 0.6 LAB L100.2550 0.0-0.9 % High IM GRAN % 1.800 Result Comment: IG% - Immature Granulocytes (promyelocytes, myelocytes and metamyelocytes) > 1% indicates that a LEFT SHIFT is Present. LAB L100.2620 2.0-7.7 X10 3/uL Normal Absolute Neut 5.6 LAB L100.2720 0.83-4.51 X10 3/ul Normal Absolute Lymph 1.49 Performed By: #### L100.0100 #### [facility] [address] [place] [address]. [place], [address] CASE MANAGEM Observed: 09/10/2018 Status: COMPLETED Source: [place] 11:18 AM [facility] REPOSITORY HNO ID: [id number] Author: Justin Pandey (Sw) Service: Care Management Author Type: Towboat Operator Type: Care Mgt Progress Note Filed: 09/10/2018 11:27 AM Note Text: CARE MANAGEMENT DISCHARGE NOTE SERVICE DATE: 09/10/2018 SERVICE TIME: 11:18 AM LOS: 3 days Admission Date: 09/06/2018 DISCHARGE ARRANGEMENT (list agency and phone number) [facility] pharmacy Provider: Tr[facility] P: [phone]. F: [phone]. [facility] CAREGIVER ASSESSMENT: Caregiver is ready, willing and able to meet the patient's needs as recommended by the inter-professional team? Yes Patient's transition needs and plan for meeting these needs: Pt has HIP/HHC needs, pt dc to home with IV ABX. With HHC/HIP Does the patient have an acute stroke diagnosis, or has the patient had a stroke during this admission? No HANDOFF COMMUNICATION: SOC sent PCP, [facility], HIP TRANSPORTATION ARRANGEMENTS: Car family transport ADDITIONAL CONTACT RESOURCES: none Pt admitted for an elective procedure: Pt s/p Wash out, bone removal, and cranioplasty with a titanium plate. Pt intact with community IV ABX needs. Pt was referred and accepted to [facility] and [facility]. Pt dc via family transport. For any questions or concerns please follow up with case management. SIGNATURE: INA Sexton PATIENT NAME: Yoly Slaughter DATE: September 10, 2018 TIME: 11:18 AM PAGER/CONTACT #: [phone] PROGRESS Observed: 09/10/2018 Status: COMPLETED Source: [place] 8:49 AM [facility] REPOSITORY HNO ID: [id number] Author: Arben Trotter Service: Neurosurgery Author Type: Physician Type: Progress Notes Filed: 09/10/2018 9:26 AM Note Text: Neurosurgery Progress Note Interval HPI: No acute events overnight Objective: 09/09/18 0521 09/09/18 1030 09/09/18 1400 09/09/18 1800 BP: 120/63 113/62 123/68 131/69 Pulse: 68 81 88 89 Resp: Temp: 36.6 ?C (97.8 ?F) 37.1 ?C (98.7 ?F) 36.7 ?C (98 ?F) 36.6 ?C (97.8 ?F) TempSrc: Oral Oral Oral Oral SpO2: 94% 98% 94% 96% Weight: Height: EXAM: A AND Ox3 PERRL, EOMI FS, TML BUE 5/5 BLE 5/5 Incision c/d/i A/P: 52 year old male POD 3 s/p washout for wound infection and bone flap removal, cranioplasty w/mesh Neuro stable Continue AB per ID recs PICC placed D/C today Maria Luisa Conti MD Skull Base Fellow [facility] STAFF PHYSICIAN NOTE OF PERSONAL INVOLVEMENT IN CARE I have reviewed the progress note obtained and documented by the fellow and I personally participated in the marin components. I have discussed the case and management of the patient's care. The following comments revise or confirm relevant marin components of their note. IMPRESSION: agree with above. PLAN: as above. Seen with Dr. Nunes SIGNATURE: Arben Trotter MD (covering for Dr. Paris) PAGER: [phone] DATE of SERVICE: 09/10/2018 TIME of SERVICE: 9:25 AM CONSULT PROG Observed: 2018 Status: COMPLETED Source: [place] 3:21 PM [facility] REPOSITORY HNO ID: [id number] Author: Jerson Lester Service: Infectious Disease Author Type: Physician Type: Consult Progress Note Filed: 2018 5:00 PM Note Text: PROGRESS NOTE INFECTIOUS DISEASE SERVICE DATE: 2018 Subjective Interval Events: introp cultures positive for Serreatia- suceptibilities are still pending. Called and checked with micro lab afebri'e Complains of headaches Medications: Current hospital medications: NaCl 0.9% 10 mL 10 mL INTRAVENOUS q 12 H NaCl 0.9% 20 mL 20 mL INTRAVENOUS PRN acetaminophen 1,000 mg tab(s) (TYLENOL) 1,000 mg ORAL q 6 H oxyCODONE IR 5-10 mg tab(s) (ROXICODONE) 5-10 mg ORAL q 4 H PRN amLODIPine 5 mg tab(s) (NORVASC) 5 mg ORAL DAILY docusate sodium 100 mg cap(s) (COLACE) 100 mg ORAL BID atorvastatin 10 mg tab(s) (LIPITOR) 10 mg ORAL DAILY WITH BREAKFAST labetalol 5-10 mg injection syringe (NORMODYNE) 5-10 mg INTRAVENOUS q 10 MIN PRN docusate sodium 100 mg cap(s) (COLACE) 100 mg ORAL BID bisacodyl EC 10 mg tab(s) (DULCOLAX) 10 mg ORAL DAILY PRN bisacodyl 10 mg suppository (DULCOLAX) 10 mg RECTAL DAILY PRN ondansetron (PF) 4 mg injection (ZOFRAN) 4 mg INTRAVENOUS q 6 H PRN prochlorperazine 25 mg suppository (COMPAZINE) 25 mg RECTAL q 12 H PRN heparin 5,000 Units injection 5,000 Units SUBCUTANEOUS q 12 H cefepime 2 g in D5W 100 mL MB+ (MAXIPIME) 2 g INTRAVENOUS q 8 HR Objective Physical Exam: BP 123/68 Pulse 88 Temp 36.7 ?C (98 ?F) (Oral) Resp 18 Ht 168.9 cm (5' 6.5) Wt 85.3 kg (188 lb 0.8 oz) SpO2 94% BMI 29.90 kg/m? gen in no distress Scalp incision is clean HEENT NAD Heart s1s2n rrr Lungs clear b/l Abdomen soft and non tender Ext no edema Lab data: WBC (k/uL) Date Value 09/06/2018 7.14 05/17/2018 7.43 12/30/2012 8.07 Platelet Count (k/uL) Date Value 09/06/2018 219 05/17/2018 182 12/30/2012 276 Creatinine (mg/dL) Date Value 09/06/2018 0.65 05/17/2018 0.73 12/30/2012 0.66 Creatinine (POCT) (mg/dL) Date Value 05/17/2018 0.60 AST (U/L) Date Value 12/30/2012 16 ALT (U/L) Date Value 12/30/2012 15 Microbiology data: reviewed DATA: Diagnostic Tests Reviewed for Today's Visit: Most recent labs and imaging results. Impression/Recommendations 52-year-old man with diabetes, hypertension, dyslipidemia and right frontal meningioma s/p right frontal craniotomy and resection on May 18, 2018, who now presents with intermittent yellow drainage from the crani incision with an MRI showing an epidural fluid collection with no restricted diffusion but had dural enhancement and enhancement around the collection S/p wash out, brain flap removal and titanium mesh cranioplasty with pus found in the epidural space. Cultures positive for Serratia and the susceptibilities are not back. continue cefepime 2 g IV Q8 hours, , but if suceptible to ceftriaxone for convenience of dosing Did place a copat in for cefepime Dr James Penn ([id number]) will be covering over the weekend. SIGNATURE: Jerson Lester MD PATIENT NAME: Yoly Slaughter DATE: 2018 PAGER/CONTACT #: [phone] CASE MANAGEM Observed: 2018 Status: COMPLETED Source: [place] 3:19 PM [facility] REPOSITORY HNO ID: [id number] Author: Natalie Oliveros) CARLITOS Curry Service: Care Management Author Type: Registered Nurse Type: Care Mgt Progress Note Filed: 2018 3:20 PM Note Text: CARE MANAGEMENT PROGRESS NOTE SERVICE DATE: 2018 SERVICE TIME: 3:19 PM LOS: 2 days Needs Prior to Discharge: Ready for Discharge D/C Wednesday. Copat pending. PICC line in place. [facility] has accepted the patient. SIGNATURE: Natalie Curry RN PATIENT NAME: Yoly Slaughter DATE: 2018 TIME: 3:19 PM PAGER/CONTACT #: [phone] CNDS Observed: 2018 Status: COMPLETED Source: [place] 10:46 AM [facility] REPOSITORY HNO ID: [id number] Author: Kylee Montaño) Service: Neurosurgery Author Type: Resident Type: Discharge Summaries Filed: 09/10/2018 6:55 PM Note Text: The [address] [address] or ([phone]) [facility] I N F O R M A T I O N Neurological [place] Discharge Summary Patient Name: Yoly Slaughter Account #: Data Unavailable Admission Date: 09/06/2018 Date of Evaluation: 2018 Time of Evaluation: 10:51 AM Admission Date: 09/06/2018 Discharge Date: 09/10/2018 Attending Physician: Andres Paris PCP: Justin Dc MD Reason for Hospitalization: Patient Active Hospital Problem List: Infection (09/06/2018) Wound infection (09/07/2018) S/P brain surgery (09/08/2018) Acute post-operative pain (09/08/2018) Final Diagnoses: Patient Active Hospital Problem List: Infection (09/06/2018) Wound infection (09/07/2018) S/P brain surgery (09/08/2018) Acute post-operative pain (09/08/2018) Operations During Hospitalization: 09/07/2018: Procedure: INCISION AND DRAINAGE POST OP INFECTION FROM CRANIAL SURGERY HEAD CPT(R) Code: 31321 - I AND D, COMP POSTOP INFECTION Operative Duration: 2 Hr 39 Min 0 Sec Implants Used for Surgery: Implant Name Type Inv. Item Serial No. Rehabilitator Lot No. LRB No. Used Action MESH MICRO [id number] - [id number] Mesh MESH MICRO [id number] STRY/HOWM CRANIOMAXILLOFACIAL NA Right 1 Implanted SCREW 1.5MM 4MM BONE SELF DRILL CROSS PIN CRANIOMAXILLOFACIAL - [id number] Screw SCREW 1.5MM 4MM BONE SELF DRILL CROSS PIN CRANIOMAXILLOFACIAL STRY/HOWM CRANIOMAXILLOFACIAL NA Right 11 Implanted Surgical Specimens: Specimen ID Type Site Comments Sent To #1-micro Fluid right frontal scalp wound fluid, s/p craniotomy; sent for AFB C AND S, Fungal C AND S, routine C AND S. Anaerobe C AND S; given to Sonia (surg. support) to take to micro lab Microbiology #2-micro Bone right cranial bone flap, plates AND screws; sent for AFB C AND S, Fungal C AND S, Routine C AND S; given to Adelaida Rhodes (surg. support) to take to micro lab Microbiology Incision/Procedure Start Time: 3:53 PM Incision Close/Procedure End Time: 5:35 PM Surgeon(s) and Role: * Andres Paris - Primary * Tristian Campos MD (Fel) - Fellow Procedures During Hospitalization: PICC line placement Hospital Course: The patient was emergently admitted through the Emergency Department to the [facility]. After being optimized for surgery by the Neurosurgery teams, Yoly Slaughter was identified and brought into the Operating Room by the anesthesia and nursing teams. Prior to surgery the patient was treated with antibiotics and continued with antibiotics postoperatively. The patient underwent a right frontal craniectomy with titanium cranioplasty plate placement with general endotracheal anesthesia. The patient tolerated the procedure and was taken to PACU in stable condition. The patient was then transferred up to the neuro-stepdown hospital room for postoperative management. Patient was fitted with sequential compression devices for DVT prophylaxis. POD #1 Patient was doing every well. He stated that he had his baseline frontal and occipital headaches. He stated that his incisional pain was well controlled with his prn medications. He was eating, voiding and passing gas. He was transferred to the [facility] without issue. POD #2 Patient continued to do well. His intraoperative cultures demonstrated serratia. His vancomycin was stopped and cefepime was continued. PICC line was placed. The patient was discharged on POD # 5 in stable condition. Complete and comprehensive discharge instructions were provided to the patient as well as necessary prescriptions. The patient had no further questions and was advised to call with any questions, concerns, or problems. Patient's pain was well controlled with Oral Pain Medications. Patient was hemodynamically stable postoperatively. Relevant labs included: CBC: Recent Labs 09/06/18 1810 WBC 7.14 HB 17.2* HCT 50.7 PLT 219 MCV 88.5 RDWCV 12.2 NEUTP 63.8 ABSNEUT 4.55 LYMPHP 25.6 MONOP 7.8 EODINP 2.2 COAG: Recent Labs 09/07/18 0249 APTT 28.2 INR 1.0 BMP: Recent Labs 09/06/18 1810 GLUC 114* NA 137 K 3.6* CHLOR 97 CO2 25 ANION 15 BUN 7* CREAT 0.65* CHEM: Recent Labs 09/06/18 1810 CA 10.1 HEPATIC: No results for input(s): ALKPHOS, ALT, AST, TBILI, LIPASE in the last 168 hours. URINALYSIS: Recent Labs 09/07/18 0322 SPGR 1.040* UGLUC Negative UBILI Negative UKET Negative UHB Negative UPROT Negative UWBC 0-5 CARDIAC: No results for input(s): CKTEST, CKMB, CKMBP, TROPT, PBNP in the last 168 hours. HbA1C: Hemoglobin A1C (%) Date Value 12/30/2012 5.4 Blood Glucose Checks: Vitamin D: No results found for: VITD25 ESR: WSR Date Value Ref Range Status 09/06/2018 8 0 - 15 mm/hr Final CRP: CRP Date Value Ref Range Status 09/06/2018 0.6 <0.9 mg/dL Final Estimated Creatinine Clearance: 139 mL/min (A) (based on SCr of 0.65 mg/dL (L)). Patient had no signs/symptoms of DVT, so no ultrasound was done during hospital course. CT of brain w/o contrast were performed during postoperative hospital course on POD # 1 for post-operative evaluation. Infectious Disease was consulted during hospital course for antibiotic regimen. Discharge Medications: Current Discharge Medication List START taking these medications acetaminophen (TYLENOL) 500 mg Take 500 mg by mouth every 6 hours as needed for Pain or Fever. Qty: 60 tablet Refills: 0 atorvastatin (LIPITOR) 10 mg Take 10 mg by mouth daily with breakfast. cefepime (MAXIPIME) 2 g Inject 2 g intravenously every 12 hours. docusate sodium (COLACE) 100 mg Take 100 mg by mouth twice daily. oxyCODONE IR (ROXICODONE) 5-10 mg Take 5-10 mg by mouth every 4 hours as needed for Pain. Earliest Fill Date: 09/09/18 Qty: 40 tablet Refills: 0 Associated Diagnoses:Drainage from wound; Intractable headache, unspecified chronicity pattern, unspecified headache type Sennosides 8.6 mg Take 8.6 mg by mouth twice daily. Qty: 30 capsule Refills: 0 CONTINUE these medications which have NOT CHANGED amLODIPine (NORVASC) 5 mg Take 5 mg by mouth once daily. Refills: 11 Pitavastatin 2 mg Take 2 mg by mouth once daily. metFORMIN ER (GLUCOPHAGE XR) 500 mg Take 500 mg by mouth daily at bedtime. Refills: 6 As an aside, opioids were prescribed due to the postoperative course and nature of treatment requiring opioid analgesics for acute pain in excess of 7 days. This patient, due to their postoperative status, is also not appropriate for non-opioids such as NSAID's due to the risk for postoperative bleeding unless the staff physician specifies. They are appropriate for acetaminophen when opioids are not required at home but is in need of opioids for pain refractory to acetaminophen below. However, the Tylenol is not to in all forms, exceed 4000 mg a day. Discharge Objective Exam: 09/08/18 2200 09/08/18 2255 09/09/18 0212 09/09/18 0521 BP: 121/67 123/72 132/79 120/63 Pulse: 72 73 81 68 Resp: Temp: 36.5 ?C (97.7 ?F) 36.6 ?C (97.9 ?F) 36.6 ?C (97.8 ?F) TempSrc: Oral Oral Oral SpO2: 93% 96% 98% 94% Weight: Height: PHYSICAL EXAM: General: in no apparent distress. Lungs: clear to auscultation bilaterally Cardiac: RRR, no m/r/g Abdomen: soft, nontender, nondistended, + BS Neurological: GCS:Opens eyes spontaneously (4),Oriented (5),Obeys motor commands (6) =15 Cranial Nerves: FS, TM, PERRLA, EOMI Motor: 5/5 strength upper and lower extremity bilaterally Cerebellar: negative pronator drift Skin: incision clean dry and intact Psychiatric: Appropriate mood and affect Patient Condition at Discharge: Improved Discharge Disposition: Home with Home Health Care Information Provided to the Patient: Patient given copy of Discharge Instructions DIET: Regular Diet Activity: No heavy lifting greater than 8-10 pounds. No vigorous activity. No driving or operating heavy machinery while taking narcotic (pain) medications. Wound Care: Keep area(s) clean and dry. Do not submerge wound(s) in standing water for 14 days after surgery (no tub bathing, swimming, or hot tubs). Please use gentle soap to wash hair, for example baby shampoo, if the wound(s) is/are on your head or in your hair. Please visually inspect your wound(s) at least once daily. If the wound(s) are in a difficult to see location, please use a mirror or have someone else assist with visual inspection. If you have sutures that you can see outside of the skin or win: - Call Surgeon's office to schedule wound check AND suture/staple removal appointment or schedule the removal with your primary care physician 10-14 days after the date of surgery. Do not remove the win/sutures on your own. Return sooner or notify Surgeon's office if wound(s) or surrounding areas have increased swelling, pain, warmth, redness, or drainage that is thick, yellow and/or green. Follow-Up: Dr. Andres Paris Call or during normal business hours for your follow up appointments. Follow up as scheduled. Electronically SIGNED/ DICTATED by: Evelyn Grissom PA-C September 09, 201810:51 AM [phone] (pager) in the service of Attending Physician, Dr. Andres Paris. This note is not finalized until authenticated by the staff physician. 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 No Advance Directive: Health Literacy: 1. How often do you need to have someone help you when you read instructions, pamphlets, or other written material from your doctor or pharmacy? Never - 1 2. How confident are you filling out medical forms by yourself? Extremely - 1 If Patient scores > 3 on either question, the following interventions were put into place: Patient did not score > 3 FUNCTIONAL AND COGNITIVE/BEHAVIORAL PRIOR TO ADMISSION: Baseline Mental Status: Alert AND Oriented, Person, Place , Time and Situation Functional Status: Independent Does Patient Currently Receive Any Community Services or Home Care? None Equipment Prior to Admission: None Has the Patient Been in a Group Home Facility in the Past 30 days? No SOCIAL: Living Arrangement: Home1-story Lives With: Alone Financial Resources: Employed: [employer] Primary Contact: Extended Emergency Contact Information Primary Emergency Contact: Jamila Melendez Relation: Sister Supportive: Yes Other Important Patient Contacts: None Caregiver Assessment: Caregiver is ready, willing and able to meet the patient's needs as recommended by the inter-professional team? No Caregiver Needed Patient's transition needs and plan for meeting these needs: HHC/HIP Does the patient have an acute stroke diagnosis, or has the patient had a stroke during this admission? No Medication Adherence: I am convinced of the importance of my prescription medication: Agree completely - 0 I worry that my prescription medication will do more harm than good to me Disagree completely - 0 I feel financially burdened by my [id number] expenses for my prescription medication: Disagree completely - 0 Patient is categorized as low risk < 2 Are you interested in bedside delivery of your medications? No Food Concerns: In the Last Month, Have You had Trouble Getting Food? No trouble getting food During the Last Month, Have You Worried Whether Your Food Would Run Out Before You Had Enough Money to Buy More? No Is the Patient Psychosocially Complex? No ASSESSMENT AND PLAN: Medical Needs: 2 or more chronic diseases Psychosocial Needs: None FREEDOM OF CHOICE EXPLAINED: Yes Discussed with patient The patient and/or family has been given the Provider List: Yes Provider List: Home Care and Home Care Pharmacy Preference: No preference. POTENTIAL TRANSITION PLANS Home [facility] Care Pharmacy D/C ready. PICC line in place. HHC/HIP. Referral sent to [facility] pending. Patient's neighbor will provide d/c transportation. Will follow for d/c planning needs. 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 Patient to use [facility] Bedside Delivery - YES 2. If fax, patient would like us to fax prescriptions to Pharmacy of choice a. Pharmacy: b. Location: c. Phone: 3. Insurance card on file - YES 4. Credit card for payment - N/A SPOKE WITH PATIENT AND RN ABOUT 09/11/2018 DUE TIME Bruce Ferguson ([employer]) DCT Contact Info: [id number] PROCEDURE Observed: 2018 Status: COMPLETED Source: [place] 8:36 AM [facility] REPOSITORY HNO ID: [id number] Author: Larisa Turpin LPN Service: PICC Team Author Type: LICENSED NURSE Type: Procedures Filed: 2018 8:44 AM Note Text: PICC NURSE INSERTION NOTE DATE OF PROCEDURE: 2018 TIME OF PROCEDURE: 835 ORDERING PHYSICIAN: kylah Hicks INFORMED CONSENT: Obtained per hospital policy. INDICATION FOR LINE PLACEMENT: IV therapy over six days CONDITION OF LINE PLACEMENT: Sterile PRIMARY PROCEDURALIST: CARLITOS Desouza REFUSE COLLECTOR SUPERVISOR: MAGALY Walker PRE-PROCEDURE REVIEW ALLERGIES No Known Allergies Known History of Venous Thrombosis: No Known History of Permanent Pacemaker or Automated Implanted Cardiac Device: No Previous Breast Surgery of Lymph Node Dissection: No History of Renal Disease with Arterio-Venous Fistula in Place or Planned: No Ultrasound Assessment Complete: Yes PROCEDURE NARRATIVE SAFE PRACTICE Hand Hygiene per Hospital Policy: Yes Skin Preparation Unit Dose Applicator Used: Chloraprep (CHG + alcohol), allowed to dry. Procedure Surface Cleansed with Antimicrobial Wipes: Yes Barriers Used by Proceduralist and all Assisting Personnel: Yes UNIVERSAL PROTOCOL / SAFETY CHECKLIST Procedure to be performed: SL PICC Sign in Communication: Completed Time Out: Team Confirms the Correct Patient, Correct Procedure, Correct Site and Site Marking, Correct Position (if applicable), Prep and Dry Time (if applicable). Time: 830 Affirmation of Time Out: YES Sign Out Discussion: Completed Larisa Turpin LPN CATHETER PLACEMENT Brand: bard Lot: [id number] Number of Lumens: 1 Type of PICC: Power Injectable PICC Lumen Size: 4 Albanian PLACEMENT TECHNIQUE Lidocaine: Yes. Strength: 1% Volume 1 ml Modified Seldinger Technique Used to Place Line via the Right Basilic Ultrasound Guidance: Yes Number of Attempts at Insertion: 1 Ensured control of guidewire during all aspects of the procedure: Yes Accounted for entire guidewire upon removal: Yes Internal Length: 42 cm External Length: 2 cm Trim Length: 44 cm Mid-Arm Circumference Above Insertion Site: 28 centimeters Post Insertion Pain Level Related to Procedure: 0 Action Taken to Address Pain: None needed Verified Placement: Blood return and Tip location system or device indicates the tip is located in the SVC/CAJ. Line was Flushed with 20 cc normal saline Line Secured with: Securement device Sterile Dressing Applied and Dated: Yes Sterile Caps on all Ports Prior to Leaving Procedure Area: Yes SPECIMENS: None COMPLICATIONS: None Patient Education Materials: Given to patient The [facility] Central Line Insertion checklist, attached to the Central Line-Associated Bloodstream Infection Prevention Policy, was utilized during this procedure. QUESTIONS or PROBLEMS: Page [phone] SIGNATURE: Larisa Turpin LPN PATIENT NAME: Yoly Slaughter DATE: 2018 TIME: 8:36 AM PAGER/CONTACT PHONE: PT ED Observed: 2018 Status: COMPLETED Source: [place] 8:25 AM [facility] REPOSITORY O ID: [id number] Author: Larisa Turpin LPN Service: PICC Team Author Type: LICENSED NURSE Type: Patient Education Filed: 2018 8:26 AM Note Text: PATIENT EDUCATION TOPIC: PROCEDURE / SURGERY: PICC PATIENT NAME: Yoly Slaughter [address] READINESS TO LEARN COGNITIVE ABILITY: Alert and oriented MOTIVATION TO LEARN: Interested FAMILY SUPPORT: Unable to assess - Family not present INSTRUCTION PROVIDED TO: Patient PATIENT LEARNS BEST BY: Unable to Assess FACTORS AFFECTING LEARNING: None PHYSICAL LIMITATIONS AFFECTING LEARNING: None LEARNING RESPONSE DIAGNOSIS: ADULT: Wound Infection PATIENT/FAMILY RESPONSE: Verbalizes understanding of: POST-PROCEDURE INSTRUCTIONS-Correct actions to take to reduce post procedure complications METHOD OF INSTRUCTION: Individual instruction Written instruction - handouts Verbal instruction FOLLOW-UP PLAN: Reinforce - Repeat previous content INSTRUCTIONAL AIDS USED: Picc Line Book SUPPLEMENTAL MATERIAL PROVIDED TO PATIENT: None REFERRAL (RECOMMENDATION): None Electronically Signed By: Larisa Turpin LPN PROGRESS Observed: 2018 Status: COMPLETED Source: [place] 7:56 AM [facility] REPOSITORY HNO ID: [id number] Author: Andres Paris Service: Neurosurgery Author Type: Physician Type: Progress Notes Filed: 2018 4:04 PM Note Text: Neurosurgery Team C Progress Note Patient Name: Yoly Slaughter Account #: Data Unavailable Admission Date: 09/06/2018 Date of Evaluation: 09/08/2018 Time of Evaluation: 7:49 AM Attending: Dr. Andres Paris. Location: H063 001/[id number] POD # 2 S/P:Wash out, bone removal, and cranioplasty with a titanium plate ASSESSMENT AND PLAN: 52 year old right-handed male with PMH significant for R frontal meningioma s/p resection 05/18/18 (GTR), DM, HTN, HLD, bilateral cataracts s/p surgery 02/2018, who presents with 1 month of intermittent yellow drainage from wound. Found on outpatient MRI to have dural thickening, slight fluid collection underlying old crani site with enhancement no diffusion restriction. Patient is now POD #1 from a wound washout and bone removal. Appreciate ID- cefepime were started after intra-operative cultures were obtained. Active Hospital Problems Diagnosis - Infection POA Continue cefepime per ID Continue follow intraoperative cultures - S/P brain surgery S/p purulent drainage since 07/10 with bone flap removal with cranioplasty 09/07/17 - Acute post-operative pain - Wound infection - plan for hospital problem list outlined as above - as for the acute postoperative issues, plan is outlined as following: -- neuro intact with baseline frontal/occipital headache which was present 2 weeks prior to his initial surgery -- pain control: tylenol, oxycodone -- bowel regimen: colace and senna -- single lumen is ok with PICC line spoke to Dr. Lester yesterday -- appreciate ID- continue cefepime -- anticipated discharge PATIENT CHECK LIST: 1. Out of bed and ambulating: Yes Needs PT or OT Evaluation: No 2. Vascular access necessary: Yes Needs PICC team consult: TBD 3. [place]/drains: Yes D/C: Yes 4. Imaging completed: none Pending studies: none 5. Consults requested: Yes; Service: ID 6. Infectious Disease - Active infections: Yes - Antibiotics: cefepime - Recent cultures: intraoperative cultures 7. Pain - Is the patient currently reporting any pain? Yes - What is the plan for pain management today 09/08/2018 ? Continue regimen and titrate to pain control 8. DVT prophylaxis: PAS stockings and subcutaneous heparin INTERVAL HPI: reports no current issues or concerns. He states that his pain is well controlled. He is eating, ambulating, and voiding without issue. Denies excessive pain, bleeding, drainage, nausea, vomiting, chest pain, shortness of breath, light headedness, swelling, itching, calf pain, constipation and difficulty voiding. Overnight events noted: none. MEDICATIONS: Current hospital medications: NaCl 0.9% 10 mL 10 mL INTRAVENOUS q 12 H NaCl 0.9% 20 mL 20 mL INTRAVENOUS PRN acetaminophen 1,000 mg tab(s) (TYLENOL) 1,000 mg ORAL q 6 H oxyCODONE IR 5-10 mg tab(s) (ROXICODONE) 5-10 mg ORAL q 4 H PRN amLODIPine 5 mg tab(s) (NORVASC) 5 mg ORAL DAILY docusate sodium 100 mg cap(s) (COLACE) 100 mg ORAL BID atorvastatin 10 mg tab(s) (LIPITOR) 10 mg ORAL DAILY WITH BREAKFAST labetalol 5-10 mg injection syringe (NORMODYNE) 5-10 mg INTRAVENOUS q 10 MIN PRN docusate sodium 100 mg cap(s) (COLACE) 100 mg ORAL BID bisacodyl EC 10 mg tab(s) (DULCOLAX) 10 mg ORAL DAILY PRN bisacodyl 10 mg suppository (DULCOLAX) 10 mg RECTAL DAILY PRN ondansetron (PF) 4 mg injection (ZOFRAN) 4 mg INTRAVENOUS q 6 H PRN prochlorperazine 25 mg suppository (COMPAZINE) 25 mg RECTAL q 12 H PRN heparin 5,000 Units injection 5,000 Units SUBCUTANEOUS q 12 H cefepime 2 g in D5W 100 mL MB+ (MAXIPIME) 2 g INTRAVENOUS q 8 HR OBJECTIVE: LABS: CBC, Coags, BMP, Mg, Phos Recent Labs 09/07/18 0249 09/06/18 1810 WBC -- 7.14 HB -- 17.2* HCT -- 50.7 PLT -- 219 INR 1.0 -- APTT 28.2 -- NA -- 137 K -- 3.6* CHLOR -- 97 CO2 -- 25 BUN -- 7* CREAT -- 0.65* GLUC -- 114* CA -- 10.1 TISSUE CULT + STAIN [[id number]] Microbiology Report No Data BONE RT CRANIAL BONE FLAP PLATE 09/07/2018 4:40 PM 09/08/2018 9:58 PM Smear Result: No organisms seen Rare Polymorphonuclear leukocytes Rare Mononuclear cells Many Red Blood Cells Culture: Moderate Serratia marcescens Susceptibility results to follow. >>NOTE(NOTE) Positive result called to and read back by:Susana WELDON H63 09/08/2018 1801 Sean Preliminary result Add Me ? WOUND CULTURE AND GRAM STAIN [[id number]] Microbiology Report No Data WOUND RT FRONTAL SCALP WOUND S/P CRANI 09/07/2018 3:58 PM 09/08/2018 8:44 PM Smear Result: No organisms seen Moderate Polymorphonuclear leukocytes Few Mononuclear cells Many Red Blood Cells Culture: Moderate Serratia marcescens Refer to specimen collected on 09.07.18 AT 1640 ([id number]) Anion Gap Date Value Ref Range Status 09/06/2018 15 9 - 18 mmol/L Final VITAL SIGNS 24 HOUR REVIEW: 09/08/18 2200 09/08/18 2255 09/09/18 0212 09/09/18 0521 BP: 121/67 123/72 132/79 120/63 Pulse: 72 73 81 68 Resp: Temp: 36.5 ?C (97.7 ?F) 36.6 ?C (97.9 ?F) 36.6 ?C (97.8 ?F) TempSrc: Oral Oral Oral SpO2: 93% 96% 98% 94% Weight: Height: Intake/Output Summary (Last 24 hours) at 09/09/18 1013 Last data filed at 09/09/18 0200 Gross per 24 hour Intake 1476 ml Output 0 ml Net 1476 ml PHYSICAL EXAM: General: in no apparent distress. Lungs: clear to auscultation bilaterally Cardiac: RRR, no m/r/g Abdomen: soft, nontender, nondistended, + BS Neurological: GCS:Opens eyes spontaneously (4),Oriented (5),Obeys motor commands (6) =15 Cranial Nerves: FS, TM, PERRLA, EOMI Motor: 5/5 strength upper and lower extremity bilaterally Cerebellar: negative pronator drift Skin: incision clean dry and intact Psychiatric: Appropriate mood and affect Electronically SIGNED by: Evelyn Grissom PA-C Pager [phone] The above was discussed with the Attending Physician: Andres Paris From 4 PM To 7pm please page Zac Jacky for issues or concerns. Attending Note I evaluated the patient and personally participated in the marin components. PICC line in. Discharge planning. Signature: Andres Paris MD Date: 2018 Time: 4:04 PM NURSING PROG Observed: 09/08/2018 Status: COMPLETED Source: [place] 10:50 PM [facility] REPOSITORY HNO ID: [id number] Author: Mary (Rn) CARLITOS Torres Service: (none) Author Type: Registered Nurse Type: Nursing Progress Note Filed: 2018 12:11 AM Note Text: Nursing Progress Note Patient Name: Yoly Slaughter Patient Location: [place] [address] Transfer Note: Patient transferred into room/unit H60 Bed 5 from Neuro SDU in stable condition. Actions taken: No futher actions taken at this time. Will continue to monitor and check with patient. This note was completed by: Mary Torres RN CONSULT PROG Observed: 09/08/2018 Status: COMPLETED Source: [place] 6:50 PM [facility] REPOSITORY HNO ID: [id number] Author: Yessi Frank (Pharmacist) Service: Pharmacy Author Type: Pharmacist Type: Consult Progress Note Filed: 09/08/2018 6:50 PM Note Text: PHARMACY VANCOMYCIN DOSING NOTE Patient Name: Yoly Slaughter Admission Date: 09/06/2018 Date of Consult: 09/08/2018 Time of Consult: 6:50 PM Indication: GLASS TECHNICIAN/INSTALLER infection Goal Range: 15-25 mcg/mL RECOMMENDATIONS/PLAN: Pharmacy consulted for vancomycin dosing for Yoly Slaughter, a 52 year old, male who is being treated with vancomycin for GLASS TECHNICIAN/INSTALLER infection The primary service has discontinued vancomycin therapy. Pharmacy vancomycin dosing service will sign off. Thank you for allowing us to participate in this patient's care. Please contact pharmacy if questions. Yessi Frank, Pharmacist [id number] CONSULT PROG Observed: 09/08/2018 Status: COMPLETED Source: [place] 4:09 PM [facility] REPOSITORY HNO ID: [id number] Author: Jerson Lester Service: Infectious Disease Author Type: Physician Type: Consult Progress Note Filed: 09/08/2018 6:41 PM Note Text: PROGRESS NOTE INFECTIOUS DISEASE SERVICE DATE: 09/08/2018 Subjective Interval Events: S/p wash out, brain flap removal and titanium mesh cranioplasty with pus found in the epidural space. Cultures positive for lactose negative gram-negative bacilli Medications: Current hospital medications: vancomycin dosing and monitoring per pharmacy OTHER As Directed acetaminophen 1,000 mg tab(s) (TYLENOL) 1,000 mg ORAL q 6 H oxyCODONE IR 5-10 mg tab(s) (ROXICODONE) 5-10 mg ORAL q 4 H PRN amLODIPine 5 mg tab(s) (NORVASC) 5 mg ORAL DAILY docusate sodium 100 mg cap(s) (COLACE) 100 mg ORAL BID atorvastatin 10 mg tab(s) (LIPITOR) 10 mg ORAL DAILY WITH BREAKFAST labetalol 5-10 mg injection syringe (NORMODYNE) 5-10 mg INTRAVENOUS q 10 MIN PRN docusate sodium 100 mg cap(s) (COLACE) 100 mg ORAL BID bisacodyl EC 10 mg tab(s) (DULCOLAX) 10 mg ORAL DAILY PRN bisacodyl 10 mg suppository (DULCOLAX) 10 mg RECTAL DAILY PRN ondansetron (PF) 4 mg injection (ZOFRAN) 4 mg INTRAVENOUS q 6 H PRN prochlorperazine 25 mg suppository (COMPAZINE) 25 mg RECTAL q 12 H PRN [START ON 2018] heparin 5,000 Units injection 5,000 Units SUBCUTANEOUS q 12 H vancomycin 1.25 g in D5W 250 mL (VANCOCIN) 1.25 g INTRAVENOUS q 12 HR cefepime 2 g in D5W 100 mL MB+ (MAXIPIME) 2 g INTRAVENOUS q 8 HR Objective Physical Exam: Temp (24hrs), Av.6 ?C (97.9 ?F), Min:36.4 ?C (97.6 ?F), Max:36.8 ?C (98.2 ?F) Temp (120hrs), Av.7 ?C (98 ?F), Min:36.4 ?C (97.6 ?F), Max:36.9 ?C (98.5 ?F) BP 123/74 Pulse 88 Temp 36.6 ?C (97.8 ?F) (Oral) Resp 20 Ht 168.9 cm (5' 6.5) Wt 85.3 kg (188 lb 0.8 oz) SpO2 95% BMI 29.90 kg/m? gen in no distress Scalp incision clean Heart s1s2n rrr Lungs clear b/l Abdomen sof nt Lab data: WBC (k/uL) Date Value 09/06/2018 7.14 05/17/2018 7.43 12/30/2012 8.07 Platelet Count (k/uL) Date Value 09/06/2018 219 05/17/2018 182 12/30/2012 276 Creatinine (mg/dL) Date Value 09/06/2018 0.65 05/17/2018 0.73 12/30/2012 0.66 Creatinine (POCT) (mg/dL) Date Value 05/17/2018 0.60 AST (U/L) Date Value 12/30/2012 16 ALT (U/L) Date Value 12/30/2012 15 Microbiology data: reviewed DATA: Diagnostic Tests Reviewed for Today's Visit: Most recent labs and imaging results. Impression/Recommendations 52-year-old man with diabetes, hypertension, dyslipidemia and right frontal meningioma s/p right frontal craniotomy and resection on May 18, 2018, who now presents with intermittent yellow drainage from the crani incision with an MRI showing an epidural fluid collection with no restricted diffusion but had dural enhancement and enhancement around the collection S/p wash out, brain flap removal and titanium mesh cranioplasty with pus found in the epidural space. Cultures positive for lactose negative gram-negative bacilli. This is most probably Pseudomonas, but the other possibilities are acinitobacter and stenotophomonas. Can stop vancomycin continue cefepime 2 g IV Q8 hours SIGNATURE: Jerson Lester MD PATIENT NAME: Yoly Slaughter DATE: September 08, 2018 TIME: 4:09 PM PAGER/CONTACT #: [phone] PROGRESS Observed: 09/08/2018 Status: COMPLETED Source: [place] 7:49 AM [facility] REPOSITORY HNO ID: [id number] Author: Evelyn Grissom (Pa) Service: Neurosurgery Author Type: Physician Paving Bed Maker Type: Progress Notes Filed: 09/08/2018 1:17 PM Note Text: Neurosurgery Team C Progress Note Patient Name: Yoly Slaughter Account #: Data Unavailable Admission Date: 09/06/2018 Date of Evaluation: 09/08/2018 Time of Evaluation: 7:49 AM Attending: Dr. Andres Paris. Location: [place] [id number]/H063- POD # 1 S/P:Wash out, bone removal, and cranioplasty with a titanium plate ASSESSMENT AND PLAN: 52 year old right-handed male with PMH significant for R frontal meningioma s/p resection 05/18/18 (GTR), DM, HTN, HLD, bilateral cataracts s/p surgery 02/2018, who presents with 1 month of intermittent yellow drainage from wound. Found on outpatient MRI to have dural thickening, slight fluid collection underlying old crani site with enhancement no diffusion restriction. Patient is now POD #1 from a wound washout and bone removal. Appreciate ID- vancomycin and cefepime were started after intra-operative cultures were obtained. Active Hospital Problems Diagnosis - Infection POA Continue vancomycin and cefepime per ID Continue follow intraoperative cultures - S/P brain surgery S/p purulent drainage since 07/10 with bone flap removal with cranioplasty 09/07/17 - Acute post-operative pain - Wound infection - plan for hospital problem list outlined as above - as for the acute postoperative issues, plan is outlined as following: -- neuro intact with baseline frontal/occipital headache which was present 2 weeks prior to his initial surgery -- pain control: tylenol, oxycodone -- bowel regimen: colace and senna -- transfer to [facility] -- pending PICC line placement if blood cultures x 48 hours if ok with ID -- appreciate ID -- anticipated discharge PATIENT CHECK LIST: 1. Out of bed and ambulating: Yes Needs PT or OT Evaluation: No 2. Vascular access necessary: Yes Needs PICC team consult: TBD 3. [place]/drains: Yes D/C: Yes 4. Imaging completed: TBD Pending studies: none 5. Consults requested: Yes; Service: ID 6. Infectious Disease - Active infections: Yes - Antibiotics: vancomycin and cefepime - Recent cultures: intraoperative cultures 7. Pain - Is the patient currently reporting any pain? Yes - What is the plan for pain management today 09/08/2018 ? Continue regimen and titrate to pain control 8. DVT prophylaxis: PAS stockings INTERVAL HPI: reports no current issues or concerns. He states that he has his baseline. He states he was able to eat well this morning. He denies any fevers or chills at this time. Denies excessive pain, bleeding, drainage, nausea, vomiting, chest pain, shortness of breath, light headedness, swelling, itching, calf pain, constipation and difficulty voiding. Overnight events noted: none. MEDICATIONS: Current hospital medications: vancomycin dosing and monitoring per pharmacy OTHER As Directed acetaminophen 1,000 mg tab(s) (TYLENOL) 1,000 mg ORAL q 6 H oxyCODONE IR 5-10 mg tab(s) (ROXICODONE) 5-10 mg ORAL q 4 H PRN amLODIPine 5 mg tab(s) (NORVASC) 5 mg ORAL DAILY docusate sodium 100 mg cap(s) (COLACE) 100 mg ORAL BID atorvastatin 10 mg tab(s) (LIPITOR) 10 mg ORAL DAILY WITH BREAKFAST labetalol 5-10 mg injection syringe (NORMODYNE) 5-10 mg INTRAVENOUS q 10 MIN PRN docusate sodium 100 mg cap(s) (COLACE) 100 mg ORAL BID bisacodyl EC 10 mg tab(s) (DULCOLAX) 10 mg ORAL DAILY PRN bisacodyl 10 mg suppository (DULCOLAX) 10 mg RECTAL DAILY PRN ondansetron (PF) 4 mg injection (ZOFRAN) 4 mg INTRAVENOUS q 6 H PRN prochlorperazine 25 mg suppository (COMPAZINE) 25 mg RECTAL q 12 H PRN [START ON 2018] heparin 5,000 Units injection 5,000 Units SUBCUTANEOUS q 12 H vancomycin 1.25 g in D5W 250 mL (VANCOCIN) 1.25 g INTRAVENOUS q 12 HR cefepime 2 g in D5W 100 mL MB+ (MAXIPIME) 2 g INTRAVENOUS q 8 HR OBJECTIVE: LABS: CBC, Coags, BMP, Mg, Phos Recent Labs 09/07/18 0249 09/06/18 1810 WBC -- 7.14 HB -- 17.2* HCT -- 50.7 PLT -- 219 INR 1.0 -- APTT 28.2 -- NA -- 137 K -- 3.6* CHLOR -- 97 CO2 -- 25 BUN -- 7* CREAT -- 0.65* GLUC -- 114* CA -- 10.1 WOUND CULTURE AND GRAM STAIN [[id number]] Microbiology Report No Data WOUND RT FRONTAL SCALP WOUND S/P CRANI 09/07/2018 3:58 PM 09/08/2018 12:43 AM Smear Result: No organisms seen Moderate Polymorphonuclear leukocytes Few Mononuclear cells Many Red Blood Cells Preliminary result Add Me ? TISSUE CULT + STAIN [[id number]] Microbiology Report No Data BONE RT CRANIAL BONE FLAP PLATE 09/07/2018 4:40 PM 09/08/2018 12:41 AM Smear Result: No organisms seen Rare Polymorphonuclear leukocytes Rare Mononuclear cells Many Red Blood Cells Anion Gap Date Value Ref Range Status 09/06/2018 15 9 - 18 mmol/L Final VITAL SIGNS 24 HOUR REVIEW: 09/08/18 0400 09/08/18 0500 09/08/18 0600 09/08/18 0700 BP: 109/67 113/66 128/59 140/63 Pulse: 83 85 94 91 Resp: Temp: 36.6 ?C (97.9 ?F) TempSrc: Oral SpO2: 92% 93% 93% 94% Weight: Height: Intake/Output Summary (Last 24 hours) at 09/08/18 0754 Last data filed at 09/07/18 2100 Gross per 24 hour Intake 2300 ml Output 100 ml Net 2200 ml PHYSICAL EXAM: General: in no apparent distress. Lungs: clear to auscultation bilaterally Cardiac: RRR, no m/r/g Abdomen: soft, nontender, nondistended, + BS Neurological: GCS:Opens eyes spontaneously (4),Oriented (5),Obeys motor commands (6) =15 Cranial Nerves: FS, TM, PERRLA, EOMI Motor: 5/5 strength upper and lower extremity bilaterally Cerebellar: negative pronator drift Skin: headwrap intact Psychiatric: Appropriate mood and affect Electronically SIGNED by: Evelyn Grissom PA-C Pager [phone] The above was discussed with the Attending Physician: Andres Paris From 4 PM To 7pm please page Zac Rico for issues or concerns. 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 1. Patient is currently ordered Vancomycin 1.25 g IV q12h. Today is day #1 of therapy. 2. No vancomycin level has been drawn for this dosing regimen. 3. The present dose of vancomycin is the recommended dosage for this patient at this time. Continue therapy as prescribed. 4. The next vancomycin level will be ordered for 09/09/18 (prior to 5th dose) unless clinically indicated sooner. (Pharmacy will order) We will follow patient renal function, vancomycin levels and doses with you during the course of therapy. Additional recommendations will appear in follow up notes. If you have any questions, please contact Melissa Gustafson RPh at [phone] . Age: [age] year old Allergies: ALLERGIES No Known Allergies Last 3 Encounter Wt Readings: Date: Wt: 09/06/2018 85.3 kg (188 lb 0.8 oz) 09/06/2018 85.7 kg (188 lb 14.4 oz) 06/10/2018 79.8 kg (176 lb) Last 1 Encounter Ht Readings: Date: Ht: 09/06/2018 168.9 cm (5' 6.5) CrCl: 140.6 mL/min Temp (24hrs), Av.7 ?C (98.1 ?F), Min:36.6 ?C (97.8 ?F), Max:36.9 ?C (98.5 ?F) - Current Temp: 36.6 ?C (97.9 ?F) Labs BUN (mg/dL) Date Value 09/06/2018 7 (L) 05/17/2018 13 12/30/2012 10 Creatinine (mg/dL) Date Value 09/06/2018 0.65 (L) 05/17/2018 0.73 12/30/2012 0.66 (L) Creatinine (POCT) (mg/dL) Date Value 05/17/2018 0.60 (A) WBC (k/uL) Date Value 09/06/2018 7.14 05/17/2018 7.43 12/30/2012 8.07 Vancomycin Levels: No results found for: RAMIN Gustafson, [place] CT BRAIN WO IVCON Observed: 09/07/2018 Status: F Source: [place] 6:58 PM [facility] REPOSITORY * * *Final Report* * * DATE OF EXAM: Sep 07 2018 6:58PM [facility] 0504 - CT BRAIN WO IVCON / PROCEDURE REASON: Post-operative / post-procedure assessment, asymptomatic * * * * Physician Interpretation * * * * COMPARISONS: 09/06/2018. HISTORY: Post procedure. Persistent headaches. TECHNIQUE: Head CT without contrast. MQ: [id number] CT Dose-Length Product (DLP): 776 mGy*cm CT Dose Reduction Employed: No dose reduction techniques were required RESULT: HEAD CT: Interval surgical changes of right frontal craniotomy with removal of calvarial graft (which showed signs of osteomyelitis previously) and placement of mesh with secondary new expected subcutaneous emphysema, scalp soft tissue swelling, pneumocephalus and extra axial blood byproducts collection. No underlying brain pathology is identified. The scalp soft tissue swelling which was identified previously is again identified, however, this is now likely related to surgery and component of infection cannot be excluded but is less likely. No significant complications. Remaining brain and bones and soft tissues are otherwise stable from prior examination without any new disease. IMPRESSION: Interval uncomplicated postsurgical changes as detailed. Developmental Mathematics Instructor: PSCB Transcribe Date/Time: Sep 07 2018 7:08P Dictated by : GAIL BENITEZ MD This examination was interpreted and the report reviewed and electronically signed by: GAIL BENITEZ MD on Sep 07 2018 7:10PM EST [id number] PROGRESS Observed: 09/07/2018 Status: COMPLETED Source: [place] 6:56 PM [facility] REPOSITORY [facility] ID: [id number] Author: MOISES Thompson (Ct) Service: (none) Author Type: Clinical Beater Out Leveling Machine Type: Progress Notes Filed: 09/07/2018 6:57 PM Note Text: Radiology Service Progress Note PATIENT NAME: Yoly Slaughter DATE OF SERVICE: September 07, 2018 TIME: 6:56 PM PATIENT IDENTITY VERIFICATION COMPLETED USING TWO (2) METHODS: Patient confirmed name verbally and ID band matches.. PATIENT GENDER DATA: Male PATIENT RELEVANT IMPLANT DATA REVIEWED: Yes RADIOLOGY DEPARTMENT: CT; Exam(s) Completed: Brain PERIPHERAL IV DATA: Not applicable SIGNED BY: MOISES Thompson September 07, 2018 6:56 PM ANES POST Observed: 09/07/2018 Status: COMPLETED Source: [place] 6:38 PM [facility] REPOSITORY [facility] ID: [id number] Author: Kel Bell) Natan Guerrero Service: Anesthesiology Author Type: Anesthesiologist Type: Anesthesia PostOp Filed: 09/07/2018 6:38 PM Note Text: POST ANESTHESIA EVALUATION NOTE SERVICE DATE: 09/07/2018 SERVICE TIME: 6:38 PM : 1965 Vitals: 09/07/18 0400 09/07/18 0800 09/07/18 1200 09/07/18 1801 Temp: 36.8 ?C (98.2 ?F) 36.6 ?C (97.8 ?F) 36.9 ?C (98.5 ?F) 36.8 ?C (98.2 ?F) 09/07/18 1000 09/07/18 1200 09/07/18 18009/07/18 1815 BP: 114/71 126/82 156/91 153/72 09/07/18 1000 09/07/18 1200 09/07/18 18009/07/18 1815 Pulse: 75 79 105 106 09/07/18 1000 09/07/18 1200 09/07/18 18009/07/18 1815 Resp: 18 14 14 16 09/07/1899909/07/18119909/07/18 18009/07/18 1815 SpO2: 95% 95% 93% 96% Validated Vital Signs: Yes POST ANES STATUS: No apparent anesthetic complications. The patient is appropriately hydrated with stable respiratory and cardiovascular status. Patient has safe and adequate airway control. The patient has appropriate pain relief and no significant post operative nausea or vomiting. The patient has achieved baseline mental status. Intra-Operative Events: No Significant Anesthesia Events Further assessment by Anesthesia Service: None Other Remarks: SIGNATURE: Kel Guerrero MD PATIENT NAME: Yoly Slaughter DATE: September 07, 2018 TIME: 6:38 PM PAGER/CONTACT #: [phone] BRIEF OP NOT Observed: 09/07/2018 Status: COMPLETED Source: [place] 5:36 PM [facility] REPOSITORY O ID: [id number] Author: Tristian Campos MD (Fel) Service: Neurosurgery Author Type: Fellow Type: Brief Op Note Filed: 09/07/2018 5:38 PM Note Text: BRIEF OP NOTE LOG ID: [id number] Surgery/Procedure Date: 09/07/2018 Incision/Procedure Start Time: 3:53 PM Incision Close/Procedure End Time: 5:35 PM Surgeon(s)/Proceduralist(s) and Paving Bed Maker(s): Surgeon(s) and Role: * Andres Paris - Primary * Tristian Campos MD (Fel) - Fellow Procedure(s): Wash out, bone removal, and cranioplasty with a titanium plate Anesthesia: General Findings: Epidermal and epidural abcess Estimated Blood Loss: 100 mls Specimens: Epidural abcess Complications: None Pre-Op/Pre-Procedure Diagnosis: Wound infection Post-Op/Post-Procedure Diagnosis: Epidural abcess SIGNATURE: Tristian Campos MD PATIENT NAME: Yoly Slaughter DATE: September 07, 2018 TIME: 5:36 PM PAGER/CONTACT #: [phone] XR SURGICAL COUNT -NB Observed: 09/07/2018 Status: F Source: [place] 4:45 PM [facility] REPOSITORY * * *Final Report* * * DATE OF EXAM: Sep 07 2018 4:45PM [id number] - XR SURGICAL COUNT -NB / PROCEDURE REASON: 11-CODE RUST * * * * Physician Interpretation * * * * HISTORY: 11-CODE RUST TECHNOLOGIST PROVIDED HISTORY (if applicable): TECHNIQUE: XR SURGICAL COUNT -NB RESULT: Intraoperative frontal view of the skull shows numerous win overlying scalp likely related to drapes. There is scalp soft tissue swelling. Craniotomy defect. No unexpected radiopaque foreign body is identified. IMPRESSION: NO UNEXPECTED RADIOPAQUE FOREIGN BODY. COMMUNICATION: Communicated with: Physician: ANDRES PARIS on 09/07/2018 at 1652 hours. Developmental Mathematics Instructor: PSCB Transcribe Date/Time: Sep 07 2018 4:50P Dictated by : BA SOLO MD This examination was interpreted and the report reviewed and electronically signed by: BA SOLO MD on Sep 07 2018 4:53PM EST [id number] Observed: 09/07/2018 Status: F Source: [place] TISSUE CULT / STAIN 4:40 PM [facility] REPOSITORY Sp. Request/Comment: - Specimen collected in surgery. Specimen received in sterile container. Smear Result - No organisms seen Rare Polymorphonuclear leukocytes Rare Mononuclear cells Many Red Blood Cells Culture Result - Moderate Serratia marcescens --> ABNORMAL ALERT One colony. --> ABNORMAL ALERT Staphylococcus epidermidis --> ABNORMAL ALERT (NOTE) Positive result called to and read back by:Martinez Burrows RN H63 09/08/2018 Yelitza Estrada ORGANISM: Serratia marcescens METHOD: Minimum inhibitory concentration (VIZION) Antibiotic Interp CHRISTIAN Status Ampicillin RESISTANT >16 F Gentamicin SUSCEPTIBLE <=2 F Trimeth sulfameth SUSCEPTIBLE <=1 F Cefazolin RESISTANT >16 F Ciprofloxacin SUSCEPTIBLE 0.12 F Cefepime SUSCEPTIBLE <=2 F Piperacillin/Tazobac SUSCEPTIBLE <=8 F Ampicillin Sulbact RESISTANT 16 F Ceftriaxone SUSCEPTIBLE <=0.5 F Enterobacter, Citrobacter, Serratia, and Klebsiella (formerly Enterobacter) aerogenes may develop resistance during prolonged therapy with third generation cephalosporins as a result of derepression of AmpC beta lactamase. Meropenem SUSCEPTIBLE <=0.5 F Ertapenem SUSCEPTIBLE <=0.25 F ORGANISM: Staphylococcus epidermidis METHOD: Minimum inhibitory concentration(Vitek) Antibiotic Interp CHRISTIAN Status Erythromycin SUSCEPTIBLE <=0.25 F Clindamycin SUSCEPTIBLE 0.25 F Tetracycline SUSCEPTIBLE <=1 F Vancomycin SUSCEPTIBLE 1 F Oxacillin SUSCEPTIBLE <=0.25 F Oxacillin susceptible staphylococci are susceptible to other penicillinase stable penicillins, beta lactam/beta lactamase inhibitor combinations, anti staphyloccal cephems, and carbapenems. Trimeth sulfameth SUSCEPTIBLE <=10 F Gentamicin SUSCEPTIBLE <=0.5 F Rifampin SUSCEPTIBLE <=0.5 F Rifampin should not be used alone for antimicrobial therapy. Doxycycline SUSCEPTIBLE <=0.5 F Performed By: #### TISCUL #### [facility] [address] [place] [address] WOUND Observed: 09/07/2018 Status: F Source: [place] CULTURE/STAIN 3:58 [facility] REPOSITORY Sp. Request/Comment: - Specimen collected in surgery. Swab Smear Result - No organisms seen Moderate Polymorphonuclear leukocytes Few Mononuclear cells Many Red Blood Cells Culture Result - Moderate Serratia marcescens --> ABNORMAL ALERT Refer to specimen collected on --> ABNORMAL ALERT 1.16.19 AT 1640 ([id number]) --> ABNORMAL ALERT Rare --> ABNORMAL ALERT Staph ylococcus epidermidis --> ABNORMAL ALERT No further workup --> ABNORMAL ALERT Performed By: #### WCUL #### [facility] [address] [place] [address] Observed: 09/07/2018 Status: F Source: [place] ANAEROBE CULTURE 3:58 PM [facility] REPOSITORY Sp. Request/Comment: - Specimen collected in surgery. Specimen received in anaerobic transport medium. Culture Result - Negative for anaerobes. Performed By: #### ANACUL #### [facility] [address] [place], [place] [address] PROGRESS Observed: 09/07/2018 Status: COMPLETED Source: [place] 2:34 PM [facility] REPOSITORY [facility] ID: [id number] Author: Tristian Campos MD (Fel) Service: Neurosurgery Author Type: Fellow Type: Progress Notes Filed: 09/07/2018 5:49 PM Note Text: Neurosurgery POC Note Interval HPI: S/p Washout for wound infection Objective: 09/07/18 0600 09/07/18 0800 09/07/18 1000 09/07/18 1200 BP: 111/66 122/61 114/71 126/82 Pulse: 75 72 75 79 Resp: 14 Temp: 36.6 ?C (97.8 ?F) 36.9 ?C (98.5 ?F) TempSrc: Oral Oral SpO2: 95% 93% 95% 95% Weight: 85.3 kg (188 lb 0.8 oz) Height: EXAM: A AND Ox3 PERRL, EOMI FS, TML BUE 5/5 BLE 5/5 A/P: 52 year old y/o male POD #0 s/p Washout for wound infection - PACU - Pain management - CT in PACU - Continue board antibiotics, while waiting for the culture results - Grisel back to step down unit Tristian Campos MD Fellow in Functional Neurosurgery [facility] Pager [phone] CASE MANAGEM Observed: 09/07/2018 Status: COMPLETED Source: [place] 2:28 PM [facility] REPOSITORY [facility] ID: [id number] Author: Neyda Aponte RN Service: Care Management Author Type: Registered Nurse Type: Care Mgt Progress Note Filed: 09/07/2018 2:31 PM Note Text: CARE MANAGEMENT PROGRESS NOTE SERVICE DATE: 09/07/2018 SERVICE TIME: 1429 LOS: 0 days Needs Prior to Discharge: To Be Determined;Procedure;Other: See Comment (ID recommendations) CM attempted to complete face to face assessment; however., pt. was off the unit. Plan for OR today for wound washout. ID on consult. Anticipate a need for IV antibiotics. Will follow for D/C planning needs. SIGNATURE: Neyda Aponte RN PATIENT NAME: Yoly Slaughter DATE: September 07, 2018 TIME: 2:29 PM PAGER/CONTACT #: [phone] CONSULT Observed: 09/07/2018 Status: COMPLETED Source: [place] 9:46 AM [facility] REPOSITORY O ID: [id number] Author: Jerson Lester Service: Infectious Disease Author Type: Physician Type: Consults Filed: 09/07/2018 7:52 PM Note Text: Neuro-Infectious Diseases INITIAL CONSULT INFECTIOUS DISEASE SERVICE DATE: 09/07/2018 We were asked to evaluate Mr. Yoly Slaughter, a 52 year old yo male by Dr. Paris for purulent drainage after craniotomy for meningioma resection. Our findings and recommendations will be communicated through the shared medical record. History obtained by chart review. Subjective HPI: 52-year-old man with diabetes, hypertension, dyslipidemia and right frontal meningioma s/p right frontal craniotomy and resection on May 18, 2018, who was to have some subgaleal fluid but healing well on a follow-up visit on 06/03/18. According to another note on 06/10/2018 it was noted that there is a small scab with minimal bleeding from the scar, but the wound is clean and dry and patient left. On 07/08 is a telephone encounter with the patient was reported to have yellow drainage from the surgical incision site. Another office visit yesterday, we reported having adult persistent headache, and also reported having yellow drainage from the surgical wound that has been draining intermittently ever since. The MRI brain from 08/18 showed a small epidural fluid collection on the right frontal area with no significant restricted diffusion. There was adjacent dural enhancement. From the office he was admitted to the neurosurgery service and underwent a washout, bone removal and titanium mesh cranioplasty today. The interop stains and cultures all in process. He was afebrile with no leukocytosis and admission. He is post surgery in the PACU and reports headaches and denies any new focal symptoms. CURRENT ANTIBIOTICS: None now Current other medications reviewed. Current Facility-Administered Medications: amLODIPine 5 mg tab(s) (NORVASC) 5 mg ORAL DAILY NaCl 0.9% iv infusion 75 mL/hr INTRAVENOUS CONTINUOUS acetaminophen 650 mg tab(s) (TYLENOL) 650 mg ORAL q 4 H PRN oxyCODONE-acetaminophen 5-325 mg 1-2 tablet (PERCOCET) 1-2 tablet ORAL q 4 H PRN morphine 1-4 mg injection 1-4 mg INTRAVENOUS q 1 H PRN ondansetron (PF) 4 mg injection (ZOFRAN) 4 mg INTRAVENOUS q 6 H PRN docusate sodium 100 mg cap(s) (COLACE) 100 mg ORAL BID HYDROmorphone 0.4 mg injection (DILAUDID) 0.4 mg INTRAVENOUS q 4 H PRN atorvastatin 10 mg tab(s) (LIPITOR) 10 mg ORAL DAILY WITH BREAKFAST iv contrast (radiology procedure) INTRAVENOUS DIRECTED PRN PAST MEDICAL HISTORY Diagnosis Date - Acid reflux - Inguinal hernia without mention of obstruction or gangrene, unilateral or unspecified, (not specified as recurrent) - Kidney stones PAST SURGICAL HISTORY Procedure Laterality Date - EGD W/O BRSH SPECIMEN W/BX 01-19-13 - LAP REPAIR INTIAL INGUINAL HERNIA 12-23-12 right - LAPAROSCOPIC CHOLEYCYSTECTOMY Cholecystectomy, lap - SIGMOIDOSCOPY FLEX DIAG 01-19-13 poor prep Social History Marital status: Single Social History Main Topics Smoking status: Never Smoker Smokeless tobacco: Never Used Alcohol use: Yes 6.0 oz/week Cans of Beer (12oz): 4 per week Drug use: Yes Frequency: 1.0 time per week Types: Marijuana Sexual activity: No Social History Narrative Lives by himself. Father lives in [place]. Mother lives in [place]. FAMILY HISTORY Problem Relation Age of Onset - Diabetes Father s/p amputation - Coronary Artery Disease Father [place] - Heart Father aortic valve replacement ALLERGIES No Known Allergies Objective REVIEW OF SYSTEMS: As per HPI. All other systems were reviewed and negative. PHYSICAL EXAM:Temp (24hrs), Av.7 ?C (98.1 ?F), Min:36.6 ?C (97.8 ?F), Max:36.8 ?C (98.2 ?F) Temp (120hrs), Av.7 ?C (98.1 ?F), Min:36.6 ?C (97.8 ?F), Max:36.8 ?C (98.2 ?F) BP 132/70 Pulse 111 Temp 36.8 ?C (98.2 ?F) Resp 14 Ht 168.9 cm (5' 6.5) Wt 85.3 kg (188 lb 0.8 oz) SpO2 97% BMI 29.90 kg/m? GENERAL APPEARANCE: Patient in no acute distress. SKIN: Skin color, texture, turgor normal. HEAD: wrapped in a dressing which is clean and dry SINUSES: No significant findings. EYES: conjunctivae clear b/l. EARS: External ears normal. No mastoid tenderness b/l. NOSE: Nares normal. OROPHARYNX: Lips, mucosa, and tongue normal. Oropharynx normal. NECK: Supple, no lymphadenopathy LUNGS: clear to auscultation b/l. HEART: Regular rate/rhythm, normal heart sounds, and no murmurs. ABDOMEN: Soft, non tender, no palpable masses,No hepatosplenomegaly. EXTREMITIES: No edema or tenderness: NEURO: Awake, alert and oriente, no involuntary motions. Cranial nerve exam is normal bilaterally except left ear hearing ( unable to appreciate finger rub but hears finger snap) Normal strength in upper and lower extremities proximally and distally. LABS: WBC (k/uL) Date Value 09/06/2018 7.14 05/17/2018 7.43 12/30/2012 8.07 Creatinine (mg/dL) Date Value 09/06/2018 0.65 05/17/2018 0.73 12/30/2012 0.66 Creatinine (POCT) (mg/dL) Date Value 05/17/2018 0.60 Lab Results Component Value Date NEUTP 63.8 09/06/2018 ABSNEUT 4.55 09/06/2018 LYMPHP 25.6 09/06/2018 ABSLYMPH 1.83 09/06/2018 ABSMONO 0.56 09/06/2018 EODINP 2.2 09/06/2018 ABSEOSIN 0.16 09/06/2018 BASOP 0.6 09/06/2018 ABSBASO 0.04 09/06/2018 Lab Results Component Value Date PLT 219 09/06/2018 HB 17.2 09/06/2018 HCT 50.7 09/06/2018 ALB 4.5 12/30/2012 CA 10.1 09/06/2018 TBILI 1.6 12/30/2012 ALKPHOS 84 12/30/2012 AST 16 12/30/2012 GLUC 114 09/06/2018 BUN 7 09/06/2018 NA 137 09/06/2018 K 3.6 09/06/2018 CHLOR 97 09/06/2018 CO2 25 09/06/2018 ANION 15 09/06/2018 ALT 15 12/30/2012 WSR (mm/hr) Date Value 09/06/2018 8 CRP (mg/dL) Date Value 09/06/2018 0.6 MICROBIOLOGY: Reviewed and as per HPI IMAGING: Personally reviewed and interpreted the imaging studies. See [facility] for details. DATA: Diagnostic Tests Reviewed for Today's Visit: Most recent labs and imaging results. Impression/Recommendations 52-year-old man with diabetes, hypertension, dyslipidemia and right frontal meningioma s/p right frontal craniotomy and resection on May 18, 2018, who now presents with intermittent yellow drainage from the crani incision with an MRI showing an epidural fluid collection with no restricted diffusion but had dural enhancement and enhancement around the collection s/p washout, bone removal and titanium mesh cranioplasty today. The interop stains and cultures all in process. Can start the patient on IV vancomycin 1.25 g IV q12 hrs (goal trough levels close to 200 and cefepime 2g ivq 8hrs Thank you very much for inviting us to participate in the care of this patient. Will follow the patient SIGNATURE: Jerson Lester MD PATIENT NAME: Yoly Slaughter DATE: September 07, 2018 TIME: 9:47 AM PAGER/CONTACT #: [phone] ECG COMPLETE W Observed: 09/07/2018 Status: F Source: [place] INTERPRETATION 3:33 AM [facility] [place] REPOSITORY NAME : YOLY SLAUGHTER PID : [id number] : 1965 Gender : Male Race : ORD : [id number] Procedure Date : Sep 07 2018 03:33:40 Edit Date : Sep 08 2018 12:57:35 Diagnosis:NORMAL SINUS RHYTHM NORMAL ECG Confirmed by JOANA FRAGA M.D. ([id number]) on 09/08/2018 12:52:43 PM Ventricular Rate : 83 BPM Atrial Rate : 83 BPM P-R Interval : 146 ms QRS Duration : 96 ms Q-T Interval : 404 ms QTC Calculation(Bezet) : 474 ms P [place] : 52 degrees R [place] : 72 degrees T [place] : 25 degrees Test Reason : Location : 123 : [id number] Overread By : JOANA FRAGA M.D. Edited By : JOANA FRAGA M.D. Referred By : , Acquired by : CHARLI GRANT URINALYSIS WITH Collected: 09/07/2018 Status: F Source: [facility] 3:22 AM [facility] REPOSITORY TYPE CODE TESTS RESULT OUT OF REFERENCE UNITS RANGE LAB UCOL Yellow Color Yellow LAB [facility] Clear Clarity Clear LAB UGLUC Negative mg/dL Glucose, Urine Negative LAB UBIL Negative Bilirubin, Urine Negative LAB UKET Negative Ketones, Urine Negative LAB [facility] 1.005-1.030 Specific High [place], Ur 1.040 LAB UHGB Negative Hemoglobin/Blood, Negative Ur LAB UPH 4.5-8.0 pH 6.0 LAB UPROT Negative mg/dL Protein, Urine Negative LAB UUROB Normal Urobilinogen Normal LAB UNITR Negative Nitrites Negative LAB ULKEST Negative Leukest Negative LAB UCOM Comments SEE COMMENT Result Comment: N/A LAB UMCOM Urine SEE Christian Comment COMMENT Result Comment: N/A LAB UWBC 0-5 /HPF WBC 0-5 LAB URBC 0-3 /HPF Abnormal Alert RBC 3-5 Performed By: #### UAWMIC #### [facility] [place] [address] [address] STAPH AUREUS PCR Collected: 09/07/2018 Status: F Source: [place] 2:58 AM [facility] REPOSITORY TYPE CODE TESTS RESULT OUT OF REFERENCE UNITS RANGE LAB SASRC Nasal S aureus Spec Source LAB MRSRES Negative for MRSA MRSA by PCR. PCR LAB SARES Negative for Staph Staphylococcus aureus PCR aureus by PCR. Performed By: #### SAPCR #### [facility] [place] [address] [place], [place] [address] TYPE AND SCREEN Collected: 09/07/2018 Status: F Source: [place] 2:50 AM [facility] REPOSITORY TYPE CODE TESTS RESULT OUT OF REFERENCE UNITS RANGE LAB %ABR O ABO/RH(D) POSITIVE LAB % Antibody NEG Screen Performed By: #### TSCR #### [facility] [place] [address] [place], [place] [address] PROTIME Collected: 09/07/2018 Status: F Source: [place] 2:49 AM [facility] REPOSITORY TYPE CODE TESTS RESULT OUT OF RANGE REFERENCE UNITS LAB PSEC 9.7-13.0 sec PT Sec 10.3 LAB INR 0.9-1.3 PT INR 1.0 Result Comment: Vitamin K Antagonist (VKA) Therapeutic Range: INR 2 to 3 (Target INR of 2.5) Note: For patients treated with VKA drugs, such as warfarin, the [place] [employer] 2012 Guideline recommends a therapeutic INR range of 2 to 3 (target INR of 2.5). This recommendation includes high-risk patients with antiphospholipid syndrome with previous arterial or venous thromboembolism, current-generation mechanical or bioprosthetic aortic heart valve replacement. Note: Patients with mechanical aortic valve replacement and additional risk factors for thromboembolic events (atrial fibrillation, previous thromboembolism, LV dysfunction, hypercoagulable conditions) or an older generation mechanical AVR (i.e., ball in-Cage) or any mechanical MVR should have a INR therapeutic range of 2.5 to 3.5 (target INR of 3). Magda GH, et al. Chest 2012, 141:7S-47S Danny RA, et al. [facility] 2017, 70: 252-289 Performed By: #### PT, PTT #### [facility] [place] [address] [employer] [address] [place] [id number] APTT Collected: 09/07/2018 Status: F Source: [place] 2:49 [facility] REPOSITORY TYPE CODE TESTS RESULT OUT OF RANGE REFERENCE UNITS LAB APTT 23.0-32.4 sec APTT 28.2 Result Comment: Unfractionated Heparin Therapeutic Ranges: Standard Heparin Nomogram: 53 to 78 seconds (anti-Xa level of 0.3 to 0.7 U/ml) Low Dose/ACS Nomogram: 49 to 67 seconds (anti-Xa level of 0.2 to 0.5 U/ml) Stroke Treatment Nomogram: 49 to 67 seconds (anti-Xa level of 0.2 to 0.5 U/ml) Note: The APTT therapeutic range has been determined for the current lot of laboratory APTT reagent in use throughout the [facility]. Performed By: #### PT, PTT #### [facility] [place] [address] [place], [place] [address] XR CHEST 1V FRONTAL Observed: 09/07/2018 Status: F Source: [facility] 2:35 AM [facility] [place] REPOSITORY * * *Final Report* * * DATE OF EXAM: Sep 07 2018 2:35AM [facility] [id number] - XR CHEST 1V FRONTAL PORT / PROCEDURE REASON: Preoperative assessment * * * * Physician Interpretation * * * * EXAMINATION: CHEST RADIOGRAPH (PORTABLE SINGLE VIEW AP) Exam Date/Time: 09/07/2018 2:35 AM Clinical History: Preoperative assessment, MQ: [id number]_5 Comparison: None RESULT: See impression. IMPRESSION: Lines, tubes, and devices: None. Lungs and pleura: No focal consolidation. Mild linear atelectasis right lower lobe. No pleural effusion. No pneumothorax. Prominent central pulmonary vasculature without findings of overt edema. Cardiomediastinal silhouette: Normal heart size. Other: No acute osseous abnormality. Developmental Mathematics Instructor: RAVI Transcribe Date/Time: Sep 07 2018 3:15A Dictated by : NIKA SALAMANCA DO This examination was interpreted and the report reviewed and electronically signed by: JUAN DAVID BLEVINS MD on Sep 07 2018 7:50AM EST [id number] ED NOTE Observed: 09/07/2018 Status: COMPLETED Source: [place] 2:11 AM [facility] REPOSITORY HNO ID: [id number] Author: Aram JacksonRnKerry Turner RN Service: Emergency Medicine Author Type: Registered Nurse Type: ED Notes Filed: 09/07/2018 2:12 AM Note Text: Pt transport here to tae pt to [id number]. Paperwork given to transporter. OPERATIVE NO Observed: 09/07/2018 Status: COMPLETED Source: [place] 12:00 AM [facility] REPOSITORY HNO ID: [id number] Author: Andres Paris Service: Neurosurgery Author Type: Physician Type: Operative Report Filed: 2018 9:55 AM Note Text: [facility] - Operative Report [facility] [address] [place] YOLY SLAUGHTER : 1965 AGE: 52. SEX: M PATIENT TYPE: I [facility] [place] [facility] LOCATION: [id number] ATTENDING PHYSICIAN: Andres Paris M.D. CSN NUMBER: [id number] DATE OF SURGERY/PROCEDURE: 09/07/2018 INCISION/PROCEDURE START TIME: 03:53 p.m. INCISION CLOSE/PROCEDURE END TIME: 05:35 p.m. PREOPERATIVE DIAGNOSIS: Epidural abscess post craniotomy. POSTOPERATIVE DIAGNOSIS: Epidural abscess post craniotomy. SURGEON: Andres Paris M.D. REFUSE COLLECTOR SUPERVISOR: Tristian Campos M.D. SURGERY/PROCEDURE: 1. Removal of cranial bone flap. 2. Irrigation and sharp debridement of abscess. 3. Titanium mesh cranioplasty 5 cm. ANESTHESIA: General. OPERATIVE INDICATIONS: The patient is a 52-year-old gentleman with history of meningioma resection several months prior. He presented with wound drainage. Options were discussed with him. The patient was recommended that we take him to the operating room for exploration and washout. Consent was documented in a separate encounter. DESCRIPTION OF PROCEDURE: The patient was brought in the operating room. Huddle was performed. Side and site of surgery were marked. The patient was placed under general anesthesia. He was prepped and draped in sterile fashion after clipping his hair. Incision was made after completing time-out at the previous incision site. This was extended to facilitate removal of the bone. Weitlaner retractors used to reflect the scalp. There was significant amount of pus emanating from the epidural space even from beneath the bone. We used the Leibinger set to remove the screws. We carefully elevated the bone flap, which was stuck in place at multiple sites. There was no breach in the dura noted. There was extensive pus throughout this area. Following copious irrigation and debridement with sharp curettes, and then hemostasis, we fashioned a titanium cranioplasty. This was fitted and secured with multiple screws to conform to the bone edges. This was applied only after hemostasis with the fibrillar and bipolar. Following additional copious irrigation, we then brought the scalp back together with sutures and Ethilon on the skin. Sterile dressings applied. COMPLICATIONS: No immediate complications. COUNTS: Correct. I was present for all critical parts of the operation assisted by Dr. Tristian Campos. ESTIMATED BLOOD LOSS: 100 mL. SPECIMENS: Multiple cultures were sent. COMPLICATIONS: No complications. Andres Paris M.D. AMADAN:[id number] /[id number] cc: ED NOTE Observed: 09/06/2018 Status: COMPLETED Source: [place] 11:02 PM [facility] REPOSITORY HNO ID: [id number] Author: Radha (Rn) CARLITOS Peters Service: (none) Author Type: Registered Nurse Type: ED Notes Filed: 09/06/2018 11:03 PM Note Text: Handoff report called to CARLITOS Romo. ED NOTE Observed: 09/06/2018 Status: COMPLETED Source: [place] 10:19 PM [facility] REPOSITORY HNO ID: [id number] Author: Radha JacksonRn) CARLITOS Peters Service: (none) Author Type: Registered Nurse Type: ED Notes Filed: 09/06/2018 10:20 PM Note Text: Entered in error. CT BRAIN WO/W IVCON Observed: 09/06/2018 Status: F Source: [place] 9:50 PM [facility] REPOSITORY * * *Final Report* * * DATE OF EXAM: Sep 06 2018 9:50PM [facility] 0007 - CT BRAIN WO/W IVCON / PROCEDURE REASON: Post operative complication suspected * * * * Physician Interpretation * * * * EXAMINATION: CT BRAIN WO/W IVCON CLINICAL HISTORY: Postoperative drainage and persistent headache status post right frontal craniotomy for meningioma removal in April 2018. MRI in July 2018 demonstrated possible subdural collection. TECHNIQUE: Serial axial images without and with IV contrast were obtained from the vertex to the foramen magnum. MQ: [id number]_1 Contrast: 100 mL Omnipaque [address] Dose-Length Product (DLP): 1548 mGy*cm CT Dose Reduction Employed: No dose reduction techniques were required COMPARISON: MRI brain import 08/18/2018 RESULT: Right frontal craniotomy with permeative appearance of the margins of the craniotomy as well as the surrounding bone with marrow changes of the craniotomy and of the adjacent bone especially ventrally seen on MRI with considerable overlying enhancement as well as subjacent pachymeningeal thickening and enhancement extending over the right frontal convexity. No tiffanie extra-axial collection appreciated on CT with perhaps trace collection on MRI. Suggestion of minimal subgaleal collection on MRI overlying the craniotomy difficult to appreciate on CT. Age-appropriate brain volume with right frontal developmental venous anomaly again appreciated. Negative for an acute parenchymal insult, hemorrhage, significant mass effect, and additional abnormal enhancement. Unremarkable orbits, visualized paranasal sinuses, and mastoids. IMPRESSION: Permeative appearance of the right frontal craniotomy and surrounding bone concerning for osteomyelitis with subjacent pachymeningeal thickening and enhancement either reactive or representing pachymeningeal involvement. No tiffanie extra-axial collection. Developmental Mathematics Instructor: RAVI Transcribe Date/Time: Sep 06 2018 9:52P Dictated by : NIKA SALAMANCA DO This examination was interpreted and the report reviewed and electronically signed by: NAY BANKS MD on Sep 06 2018 10:09PM EST [id number] Observed: 09/06/2018 Status: COMPLETED Source: [place] 9:25 PM [facility] REPOSITORY O ID: [id number] Author: Anastasiia Laureano Service: (none) Author Type: (none) Type: Progress Notes Filed: 09/06/2018 9:40 PM Note Text: Radiology Service Progress Note PATIENT NAME: Yoly Slaughter DATE OF SERVICE: September 06, 2018 TIME: 9:25 PM PATIENT IDENTITY VERIFICATION COMPLETED USING TWO (2) METHODS: Patient confirmed name verbally and ID band matches.. PATIENT GENDER DATA: Male PATIENT RELEVANT IMPLANT DATA REVIEWED: Yes CONTRAST INDUCED NEPHROPATHY RISK FACTORS: Not applicable CREATININE: Creatinine Date Value Ref Range Status 09/06/2018 0.65 (L) 0.73 - 1.22 mg/dL Final 05/17/2018 0.73 0.73 - 1.22 mg/dL Final 12/30/2012 0.66 (L) 0.70 - 1.40 mg/dL Final Creatinine (POCT) Date Value Ref Range Status 05/17/2018 0.60 (A) 0.7 - 1.4 mg/dL Final eGFR-All Other Races Date Value Ref Range Status 09/06/2018 >60 . Final Comment: eGFR (Estimated GFR) Units of measure: mL/min/1.73 meters squared eGFR is derived from the reexpressed MDRD Study equation using the following parameters: serum creatinine, age, gender and race. The creatinine assay has been calibrated to be traceable to IDMS. An eGFR <60 mL/min/1.73m2 for >3 months is consistent with chronic kidney disease. Refer to KDOQI guidelines for clinical interpretation. In patients with unstable renal function, e.g. those with acute kidney injury, the eGFR may not accurately reflect actual GFR. eGFR- Date Value Ref Range Status 09/06/2018 >60 Final P.O.C.T. RESULTS: POC done: Yes, See Lab Tab September 06, 2018 RADIOLOGIST NOTIFIED?: No ALLERGIES: Reviewed and unchanged CONTRAST ALLERGY: NO. PERIPHERAL IV ACCESS: Ambulatory: IV type: Existing peripheral IV utilized, Site assessment: Clean,Dry and Intact, Site disposition Left in for next appointment RADIOLOGY DEPARTMENT: CT; Exam(s) Completed: Brain SIGNED BY: Anastasiia Laureano September 06, 2018 9:25 PM HISTORY PHYSICAL Observed: 09/06/2018 Status: COMPLETED Source: [place] 8:51 PM [facility] REPOSITORY HNO ID: [id number] Author: Andres Paris Service: Neurosurgery Author Type: Physician Type: HANDP Filed: 09/07/2018 3:06 PM Note Text: NEUROSURGERY ADMISSION HISTORY AND PHYSICAL EXAMINATION PLEASE DO NOT REMOVE FROM THE CHART OR MODIFY PRINTED COPY Patient Name: Yoly Slaughter CHIEF COMPLAINT: Wound drainage REASON FOR ADMISSION: Wound infection HPI: 52 year old right-handed male with PMH significant for R frontal meningioma s/p resection 05/18/18 (GTR), DM, HTN, HLD, bilateral cataracts s/p surgery 02/2018, who presents with 1 month of intermittent yellow drainage from wound. Found on outpatient MRI to have dural thickening, slight fluid collection underlying old crani site with enhancement no diffusion restriction. Sent to ED for evaluation. Patient's meningioma was initially diagnosed on a tinnitus and headache workup 02/2018, found to have a 2.5cm R frontal convexity meningioma. Underwent R crani for resection 05/18/18 (Dr. Rizvi), gross total resection, pathology grade 1 meningioma. He has since had persistent 5/10 headaches for which he was referred to a neurologist for workup. Repeat MRI on 08/18/18 demonstrated findings detailed above and he was referred to [facility] neurosurgery. He notes that he first had yellowing drainage from his incision in 06/2018 for which he was told to just monitor, no abx given. Over the last month, he has noted on 3 or 4 separate occasions slight yellowish-white drainage when wiping his hand on the incision site. Patient was seen in clinic today with a punctate area of drainage from his incision and referred to the ED for further evaluation. He denies any fevers, chills, nausea, vomiting, neck stiffness, photophobia, or change in his stable headaches recently. In the ED, WBC, ESR, CRP all normal, afebrile Anti-platelets/anti-coagulants: none PAST MEDICAL HISTORY: PAST MEDICAL HISTORY Diagnosis Date - Acid reflux - Inguinal hernia without mention of obstruction or gangrene, unilateral or unspecified, (not specified as recurrent) - Kidney stones PAST SURGICAL HISTORY: PAST SURGICAL HISTORY Procedure Laterality Date - EGD W/O BRSH SPECIMEN W/BX 01-19-13 - LAP REPAIR INTIAL INGUINAL HERNIA 12-23-12 right - LAPAROSCOPIC CHOLEYCYSTECTOMY Cholecystectomy, lap - SIGMOIDOSCOPY FLEX DIAG 01-19-13 poor prep FAMILY HISTORY: FAMILY HISTORY Problem Relation Age of Onset - Diabetes Father s/p amputation - Coronary Artery Disease Father [place] - Heart Father aortic valve replacement SOCIAL HISTORY: Social History Marital status: Single Spouse name: Years of education: Number of children: 0 Occupational History Occupation Employer Comment [employer] Social History Main Topics Smoking status: Never Smoker Smokeless tobacco: Never Used Alcohol use: Yes 6.0 oz/week Cans of Beer (12oz): 4 per week Drug use: Yes Frequency: 1.0 time per week Types: Marijuana Sexual activity: No Social History Narrative Lives by himself. Father lives in [place]. Mother lives in [place]. MEDICATIONS: amLODIPine (NORVASC) 5 mg tablet Take 5 mg by mouth once daily. Pitavastatin (LIVALO) 2 mg tab Take 2 mg by mouth once daily. metFORMIN ER (GLUCOPHAGE XR) 500 mg 24 hr tablet Take 500 mg by mouth daily at bedtime. Current hospital medications: iv contrast (radiology procedure) INTRAVENOUS DIRECTED PRN NaCl 0.9% 1,000 mL iv bolus 1,000 mL INTRAVENOUS ONCE ALLERGIES: ALLERGIES No Known Allergies COMPLETE REVIEW OF SYSTEMS: See HPI PHYSICAL EXAM: BP 154/83 Pulse (!) 91 Temp 36.7 ?C (98.1 ?F) (Oral) Resp 18 Wt 85.3 kg (188 lb) SpO2 95% BMI 30.34 kg/m? AOx3, NAD PERRL, EOMI FS, TM FSILT No drift BUE 5/5 BLE 5/5 SILT R frontal incision with punctate area of purulent drainage expressed with pressure No tenderness, erythema present No fluctuance appreaciated Heart: RRR, no r/m/g Chest: non-labored, chest rise symmetric Abdomen: Soft, NT/ND DATA: Radiology: See HPI Laboratory: CBC, Coags, BMP, Mg, Phos Recent Labs 09/06/18 1810 WBC 7.14 HB 17.2* HCT 50.7 PLT 219 NA 137 K 3.6* CHLOR 97 CO2 25 BUN 7* CREAT 0.65* GLUC 114* CA 10.1 ASSESSMENT AND PLAN: 52 year old right-handed male with PMH significant for R frontal meningioma s/p resection 05/18/18 (GTR), DM, HTN, HLD, bilateral cataracts s/p surgery 02/2018, who presents with 1 month of intermittent yellow drainage from wound. Found on outpatient MRI to have dural thickening, slight fluid collection underlying old crani site with enhancement no diffusion restriction. Sent to ED for evaluation. Wound with purulent drainage. WBC, ESR, CRP normal, afebrile. - admit under Dr. Andres Paris with plans for wound washout tomorrow - CT brain w/wo in ED - will decided on level of care pending imaging results - preop, admission labs, tele - OR tomorrow for wound washout, will consent patient at bedside - admission labs, including TANDS, nasal swab - hold off an abx - hold anti-platelet/anti-coagulation/DVT chemoprophylaxis - admission EKG, CXR, DVT scan Above plan discussed with chief Dr. Bharat Aldana and Staff Dr. Andres Paris. SIGNATURE: Sadi Duarte MD PGY-2 [id number] Neurosurgery Pager: [phone] 09/06/2018 Please page [phone] after 6 PM and on weekends Attending Note I evaluated the patient and personally participated in the marin components. I agree with the resident's findings and plan as documented and have discussed the case and management of the patient's care with the resident. OR today for washout, bone removal and probable titanium mesh cranioplasty. Signature: Andres Paris MD Date: 09/07/2018 Time: 3:06 PM ED PROV NOTE Observed: 09/06/2018 Status: COMPLETED Source: [place] 8:03 PM [facility] REPOSITORY HNO ID: [id number] Author: Heladio Gracia MD Service: Emergency Medicine Author Type: Physician Type: ED Provider Notes Filed: 09/08/2018 4:41 PM Note Text: ED Midlevel Continuation of Care Note September 06, 2018 8:03 PM Yoly Slaughter was endorsed to me by Michael Bryson PA-C. Briefly, the patient initially presented from an outpatient appointment for evaluation of post-op drainage and persistent headache. Pt s/p R frontal craniotomy in 04/2018, having intermittent purulent drainage and worsening headaches since that time. MRI in Jul 2018 concerning for a subdural fluid collection. Signout note reviewed Diagnostics were reviewed. Marin findings: MRI in Jul 2018 concerning for subdural fluid collection. Today CBC without leukocytosis, BMP at baseline, CRP and ESR normal. CT brain w/wo contrast concerning for osteomyelitis with meningeal thickening questionable for reactive vs infected. CT BRAIN WO/W IVCON Final Result IMPRESSION: Permeative appearance of the right frontal craniotomy and surrounding bone concerning for osteomyelitis with subjacent pachymeningeal thickening and enhancement either reactive or representing pachymeningeal involvement. No tiffanie extra-axial collection. Developmental Mathematics Instructor: PSCB Transcribe Date/Time: Sep 06 2018 9:52P Dictated by : NIKA SALAMANCA DO This examination was interpreted and the report reviewed and electronically signed by: NAY BANKS MD on Sep 06 2018 10:09PM EST New Physical Exam findings: none Clinical Course: Pt remained resting comfortably and HDS. NSGY resident evaluated and reviewed pt's OSH imaging. Pt was offered medication for headache but declined. They additionally requested CT brain w/wo contrast be performed to again evaluate collection. Collection was not well visualized on CT, though image was suggestive of osteomyelitis with reactive vs involvement of meninges. Plan: Case discussed with neurosurgery who advised pt would benefit from inpatient admission and management under their service. Pt was admitted to Step Down unit under neurosurgery team. Pt remained stable in ED while awaiting bed. BRANNON HAMLIN (Pa) 09/06/18 [id number] Attending Note I have personally performed a face to face assessment of the patient and have reviewed the PA/TRANSLATOR note. 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 Signature: Heladio Gracia MD Date: 09/08/2018 Time: 4:40 PM Heladio Gracia MD 09/08/18 1641 ED NOTE Observed: 09/06/2018 Status: COMPLETED Source: [place] 7:22 PM [facility] REPOSITORY HNO ID: [id number] Author: Radha (Rn) CARLITOS Peters Service: (none) Author Type: Registered Nurse Type: ED Notes Filed: 09/06/2018 7:24 PM Note Text: Assumed care of patient. Agree with triage note. No redness/drainage from incision at this time. Reports headache that is constant. Pt states his headache is 3-5/10 at baseline. Pt. is alert and oriented X3. ABC's intact, respirations even and unlabored. Skin acyanotic, warm and dry. Pain 5/10. Denies CP/SOB, numbness/tingling, weak/dizzy, fever/chills, n/v/d. Will notify MD of any acute changes. Side rails up x2, bed in lowest locked position, call light within reach, ID band on. Will continue to monitor. CBC AND DIFFERENTIAL Collected: 09/06/2018 Status: F Source: [place] 6:10 PM [facility] REPOSITORY TYPE CODE TESTS RESULT OUT OF RANGE REFERENCE UNITS LAB WBC 3.70-11.00 k/uL WBC 7.14 Result Comment: Result checked and verified No clot detected. LAB RBC 4.20-6.00 m/uL RBC 5.73 LAB HGB 13.0-17.0 g/dL Hemoglobin High 17.2 LAB HCT 39.0-51.0 % Hematocrit 50.7 LAB MCV 80.0-100.0 fL MCV 88.5 LAB MCH 26.0-34.0 pG MCH 30.0 LAB MCHC 30.5-36.0 g/dL MCHC 33.9 LAB RDWCV 11.5-15.0 % RDW-CV 12.2 LAB PLTCT 150-400 k/uL Platelet Count 219 LAB MPV 9.0-12.7 fL MPV 10.7 LAB ANEUT % Neut% 63.8 LAB AANEUT 1.45-7.50 k/uL Abs Neut 4.55 LAB ALYMP % Lymph% 25.6 LAB AALYMP 1.00-4.00 k/uL Abs Lymph 1.83 LAB AMONO % [place]% 7.8 LAB AAMONO <0.87 k/uL Abs [place] 0.56 LAB AEOS % Eosin% 2.2 LAB AAEOS <0.46 k/uL Abs Eosin 0.16 LAB ABASO % Baso% 0.6 LAB AABASO <0.11 k/uL Abs Baso 0.04 LAB AUNRBC 0 /100 WBC NRBCs 0.0 LAB ABNRBC <0.01 k/uL Absolute nRBC <0.01 LAB DTYP DTYPE Auto Diff Performed By: #### CBCDIF, BMP #### [facility] [address] [place] [address] BASIC METABOLIC PANL Collected: 09/06/2018 Status: F Source: [place] 6:10 PM [facility] REPOSITORY TYPE CODE TESTS RESULT OUT OF REFERENCE UNITS RANGE LAB GLU 74-99 mg/dL High Glucose 114 Result Comment: The [place] [employer] (ADA) provides guidance for cutoff values for fasting glucose and random glucose. The ADA defines fasting as no caloric intake for at least 8 hours. Fas ting plasma glucose results between 100 to 125 mg/dL indicate increased risk for diabetes (prediabetes). Fasting plasma glucose results greater than or equal to 126 mg/dL meet the criteria for diagnosis of diabetes. In the absence of unequivocal hyperglycemia, results should be confirmed by repeat testing. In a patient with classic symptoms of hyperglycemia or hyperglycemic crisis, random plasma glucose results greater than or equal to 200 mg/dL meet the criteria for diagnosis of diabetes. Reference: Standards of Medical Care in Diabetes 2016, [place] [employer]. Diabetes Care. 2016.39(Suppl 1). LAB BUN 9-24 mg/dL BUN Low 7 LAB CRET 0.73-1.22 mg/dL Creatinine Low 0.65 LAB NA 136-144 mmol/L Sodium 137 LAB K 3.7-5.1 mmol/L Potassium Low 3.6 LAB CL 97-105 mmol/L Chloride 97 LAB CO2 22-30 mmol/L CO2 25 LAB AGAP 9-18 mmol/L Anion Gap 15 LAB CA 8.5-10.2 mg/dL Calcium, Total 10.1 LAB GFRAA eGFR- Amer. >60 LAB GFRNAA . eGFR-All Other Races >60 Result Comment: eGFR (Estimated GFR) Units of measure: mL/min/1.73 meters squared eGFR is derived from the reexpressed MDRD Study equation using the following parameters: serum creatinine, age, gender and race. The creatinine assay has been calibrated to be traceable to IDMS. An eGFR <60 mL/min/1.73m2 for >3 months is consistent with chronic kidney disease. Refer to KDOQI guidelines for clinical interpretation. In patients with unstable renal function, e.g. those with acute kidney injury, the eGFR may not accurately reflect actual GFR. Performed By: #### CBCDIF, BMP #### [facility] [place] [address] [address] C-REACTIVE PROTEIN Collected: 09/06/2018 Status: F Source: [place] 6:10 PM [facility] REPOSITORY TYPE CODE TESTS RESULT OUT OF REFERENCE UNITS RANGE LAB CRP <0.9 mg/dL C-Reactive 0.6 Protein Performed By: #### CRP, WSR #### [facility] [place] [address] [address] SED RATE WESTERGREN Collected: 09/06/2018 Status: F Source: [place] 6:10 PM [facility] REPOSITORY TYPE CODE TESTS RESULT OUT OF REFERENCE UNITS RANGE LAB WSR 0-15 mm/hr Sed Rate Westergren 8 Performed By: #### CRP, WSR #### [facility] [place] [address] [address] ED PROV NOTE Observed: 09/06/2018 Status: COMPLETED Source: [place] 5:54 PM [facility] REPOSITORY HNO ID: [id number] Author: Heladio Gracia MD Service: Emergency Medicine Author Type: Physician Type: ED Provider Notes Filed: 09/06/2018 9:36 PM Note Text: ED Provider Note Patient Name: Yoly Slaughter SERVICE DATE: 09/06/18 History Patient presents with: Post Op Drainage Sent By 52 year old male PMH DM, HTN, right frontal hemangioma S/P right frontal craniotomy resection on 05/18/[address] Rizvi presents to the ED for further evaluation of worsening constant headaches and pressure behind eyes. Patient states pressure is worse when leaning down. Patient states that he does not take any medication for pain because it does not work. Additionally patient states that he's had yellow drainage from surgical site has been intermittent since surgery. Denies chest pain, shortness of breath, fever, chills, nausea, vomiting, diarrhea. PAST MEDICAL HISTORY Diagnosis Date - Acid reflux - Inguinal hernia without mention of obstruction or gangrene, unilateral or unspecified, (not specified as recurrent) - Kidney stones PAST SURGICAL HISTORY Procedure Laterality Date - EGD W/O BRSH SPECIMEN W/BX 01-19-13 - LAP REPAIR INTIAL INGUINAL HERNIA 12-23-12 right - LAPAROSCOPIC CHOLEYCYSTECTOMY Cholecystectomy, lap - SIGMOIDOSCOPY FLEX DIAG 01-19-13 poor prep FAMILY HISTORY Problem Relation Age of Onset - Diabetes Father s/p amputation - Coronary Artery Disease Father [place] - Heart Father aortic valve replacement Social History Social History Main Topics - Smoking status: Never Smoker - Smokeless tobacco: Never Used - Alcohol use 6.0 oz/week 4 Cans of Beer (12oz) per week - Drug use: Yes Frequency: 1.0 time per week Types: Marijuana - Sexual activity: No ALLERGIES No Known Allergies Review of Systems Constitutional: Negative for chills, diaphoresis, fatigue and fever. HENT: Positive for tinnitus. Negative for congestion and rhinorrhea. Eyes: Negative for discharge and redness. Respiratory: Negative for shortness of breath. Cardiovascular: Negative for chest pain. Gastrointestinal: Negative for abdominal pain, diarrhea, nausea and vomiting. Musculoskeletal: Negative for arthralgias and myalgias. Neurological: Positive for headaches. Negative for dizziness. Psychiatric/Behavioral: Negative for confusion. Physical Exam BP 152/82 Pulse 87 Temp (Src) 98.1 (Oral) Resp 18 Wt 188 lb (85.3kg) SpO2 96% Physical Exam Constitutional: He is oriented to person, place, and time. He appears well-developed and well-nourished. HENT: Head: Normocephalic and atraumatic. Eyes: Conjunctivae are normal. Neck: Trachea normal. No tracheal deviation present. Cardiovascular: Normal rate, regular rhythm and normal heart sounds. Pulmonary/Chest: Effort normal and breath sounds normal. No respiratory distress. Abdominal: Soft. Bowel sounds are normal. There is no tenderness. Neurological: He is alert and oriented to person, place, and time. He has normal strength. Normal finger to nose, normal gait, equal strength and sensation in upper and lower extremities. Skin: Skin is warm. No rash noted. Skin dry with small amount of dried yellow discharge exiting surgical incision site. Small amount of palpable fluid under healed surgical incision site. Psychiatric: He has a normal mood and affect. His behavior is normal. Nursing note and vitals reviewed. Diagnostic Testing ED Labs Ordered and Reviewed - No data to display Procedures ED Course / Clinical Impression Clinical Impressions as of Sep 06 2127 Drainage from wound Intractable headache, unspecified chronicity pattern, unspecified headache type Status post craniotomy History of cerebral meningioma MDM / Disposition / Plan Vital signs were reviewed. Triage records were reviewed. Medical records were reviewed. Nursing notes were reviewed and incorporated. Initial VS: BP 152/82 Pulse 87 Temp 36.7 ?C (98.1 ?F) (Oral) Resp 18 Wt 85.3 kg (188 lb) SpO2 96% BMI 30.34 kg/m? 52 year old male presents with post op drainage s/p craniotomy and BAY. Pt is afebrile, non-toxic and hemodynamically stable. Physical exam revealed Skin dry with small amount of dried yellow discharge exiting surgical incision site. Small amount of palpable fluid under healed surgical incision site. No focal neurologic deficits. LABS: CBC-HgB 17.2, no leukocytosis BMP- K 3.6, creatinine .65, BUN 7 CRP- .6 ESR-pending... Neurosurgery was consult and will evaluate patient. Patient has previous MRI at bedside. My shift ended and pt care will be signed off to Nicole Gutiérrez PA-C 8:07pm Waiting to hear back from neurosurgery. Pt will either be admitted to service or discharged with close follow up. Patient expressed understanding and consented to the above plan. No barriers of communication were apparent and I answered all questions. SIGNATURE: BRANNON Vela (Pa) 09/06/182008 Attending Note I have personally performed a face to face assessment of the patient and have reviewed the PA/TRANSLATOR note. My marin findings include: History is 52-year-old male, history as described above, referred by neurosurgery clinic for ED consultation for possible subdural fluid collection, concerning for possible chronic surgical site infection at previous site of right frontal craniotomy from April 2018. No new severe headache, no meningismus, no fever, no signs or symptoms consistent with increased intracranial pressure, no new focal neurologic deficits. Exam is vital signs reviewed, well appearing, standing and talking, pacing around the room. Neuro exam is grossly normal. Assessment/Plan are history as described above, will plan for neurosurgical consult for possible admission for management of chronic postoperative wound. Signature: Heladio Gracia MD Date: 09/06/2018 Time: 9:34 PM Heladio Gracia MD [id number] ED NOTE Observed: 09/06/2018 Status: COMPLETED Source: [place] 4:36 PM [facility] REPOSITORY HNO ID: [id number] Author: Karol Oliveros) CARLITOS Lobo Service: Emergency Medicine Author Type: Registered Nurse Type: ED Notes Filed: 09/06/2018 4:38 PM Note Text: Pt presents to ED for evaluation of drainage from his incision site. Pt had R frontal craniotomy resection in 04/2018 and still reports intermittent yellow-kishore drainage from incision. Pt denies any redness/swelling or fever/chills. NAD noted, ABCs intact PROGRESS Observed: 09/06/2018 Status: COMPLETED Source: [place] 2:40 PM [facility] REPOSITORY HNO ID: [id number] Author: Bettie Hinson Service: (none) Author Type: Nurse Practitioner Type: Progress Notes Filed: 09/06/2018 4:52 PM Note Text: [facility] EST OUTPATIENT VISIT PURPOSE OF VISIT: Ongoing patient management CHIEF COMPLAINT: Meningioma HISTORY OF PRESENT ILLNESS: Yoly Slaughter is a 52 year old male who is here for a follow-up visit for his Right frontal meningioma. He is s/p Right frontal craniotomy resection (Sinha Grade I) on 05/18/[address] Rizvi. Final surgical pathology shows: Meningothelial (synctial) meningioma, WHO Grade I. Presents today for follow-up. Since last visit, he reports daily headache which he describes as dull pain that doesn't go away. He has tried taking Advil, Tylenol with no relief. At worst he rates pain as 7-8/10 and states that it does not ever go below 3/10. He describes that pain at times feels like intense pressure behind his eyes. Was recently started on Amitriptyline by local Neurologist (Dr. Beverly Edmondson) who also ordered MRI brain scan in July 2018. Otherwise, he is also reporting yellow drainage from his surgical wound that has been intermittent since surgery. He denies fevers, chills, recent illness. No new weakness, no paresthesias, no seizures. Social History Marital status: Single Spouse name: Years of education: Number of children: 0 Occupational History Occupation Employer Comment [employer] Social History Main Topics Smoking status: Never Smoker Smokeless tobacco: Never Used Alcohol use: Yes 6.0 oz/week Cans of Beer (12oz): 4 per week Drug use: Yes Frequency: 1.0 time per week Types: Marijuana Sexual activity: No Social History Narrative Lives by himself. Father lives in [place]. Mother lives in [place]. PAST MEDICAL HISTORY Diagnosis Date - Acid reflux - Inguinal hernia without mention of obstruction or gangrene, unilateral or unspecified, (not specified as recurrent) - Kidney stones FAMILY HISTORY Problem Relation Age of Onset - Diabetes Father s/p amputation - Coronary Artery Disease Father [place] - Heart Father aortic valve replacement Current Outpatient Prescriptions: amLODIPine (NORVASC) 5 mg tablet Take 5 mg by mouth once daily. Pitavastatin (LIVALO) 2 mg tab Take 2 mg by mouth once daily. metFORMIN ER (GLUCOPHAGE XR) 500 mg 24 hr tablet Take 500 mg by mouth daily at bedtime. No current facility-administered medications for this visit. REVIEW OF SYMPTOMS: Neurological : + Complaint of headache, as above No complaint of tinnitus No complaint of decreased hearing No complaint of diplopia No complaints of blurred vision No complaint of arm/leg numbness No problem with limb coordination No complaint of syncope No complaints of seizures No complaints of memory changes or disorientation. General : Constitutional: No recent fever or weight loss. Eyes: No history of glaucoma + Cataracts, bilateral ENMT: No recent ear infection, nasal congestion, mouth sores or sore throat. CV: No history of chest pain, palpitations or leg swelling + HLP (on Pitavastatin) + HTN (on Amlodipine) + DM (on Metformin) Respiratory: No history of SOB, wheezing or recent cough. + SAMUEL, recently diagnosed Gastrointestinal: No history of nausea, vomiting, dysphagia or abdominal pain. Genitourinary: No history of hematuria or dysuria. Musculoskeletal: No complaint of arthritis, unstable gait or arm/leg weakness Psychiatric: No history of hallucinations, depression, or anxiety NEUROLOGICAL EXAM: Higher integrative functions: Oriented to person, place AND time. Attention Span and Concentration: Good. Language: Good comprehension. Fund of Knowledge: Good. 2nd CN: Full visual recio. 3rd,4th,6th CN: Pupils (=), round, react to light, full extraocular movements. 5th CN: No decrease in facial sensation 7th CN: Facial muscles symmetric and strong. 8th CN: Hears finger rub well bilaterally. 9th CN: Gag not tested 10th CN: Spontaneous palate movement, full and symmetric. 11th CN: Full strength in shoulder shrug. 12th CN: Tongue protrusion full and midline. Sensation: No decrease in sensation in upper or lower limbs to touch. Musculoskeletal: Gait is normal. Negative romberg and Tandem gait is normal. Motor: 5/5, R=L, UE=LE. Normal muscle tone without atrophy in all limbs. Coordination: Rapid alternating movements fast and smooth all limbs. PHYSICAL EXAMINATION: BP 144/83 Pulse 85 Temp 36.7 ?C (98.1 ?F) (Oral) Resp 18 Wt 85.7 kg (188 lb 14.4 oz) SpO2 96% BMI 30.49 kg/m? General appearance: Well appearing, alert, in no acute distress, well-hydrated, well nourished. Skin: + Right scalp with dry, yellow drainage with small amount soft fluid noted under skin IMAGING STUDIES: Patient has MRI brain scan images from [employer] with him today. Per radiology report: A trace subdural fluid collection is present anteriorly on the right that measures 3 mm without significant local mass effect. No associated visible restricted diffusion. KPS SCORE: 90 MEDICAL DECISION MAKING ASSESSMENT/PLAN: 1. Right frontal meningioma s/p resection 05/18/18 - Patient's wound was seen and evaluated today by surgical nurse - Per Dr. Simons recommend evaluation in the ED and patient is agreeable - He will hand-carry MRI images on CD as well as radiology report with him to the ED - [facility] for further evaluation and management - He has our contact information and was advised to call if new symptoms, questions or concerns arise prior to next scheduled visit. - All questions were answered. Bettie Hinson, MSN, ADJUNCT MATHEMATICS INSTRUCTOR Certified Nurse Practitioner cc: Lucius Simons MD - [facility] CNOV Observed: 09/06/2018 Status: COMPLETED Source: [place] 2:40 PM [facility] REPOSITORY Office Visit (NSCAMN) YOLY SLAUGHTER ([id number]) 1965 M Date Time Provider Department 09/06/18 2:40 PM BETTIE HINSON ([facility] [employer] [facility]) NSCAMN During your visit today, we recorded the following information about you: Temperature Pulse Respiration Blood pressure 98.1 degrees 85/minute 18/minute 144/83 Weight 85.7 kg Bettie Hinson APRN.[facility] [employer] 09/06/2018 4:52 PM Signed [facility] EST OUTPATIENT VISIT PURPOSE OF VISIT: Ongoing patient management CHIEF COMPLAINT: Meningioma HISTORY OF PRESENT ILLNESS: Yoly Slaughter is a 52 year old male who is here for a follow-up visit for his Right frontal meningioma. He is s/p Right frontal craniotomy resection (Sinha Grade I) on 05/18/[address] Rizvi. Final surgical pathology shows: Meningothelial (synctial) meningioma, WHO Grade I. Presents today for follow-up. Since last visit, he reports daily headache which he describes as dull pain that doesn't go away. He has tried taking Advil, Tylenol with no relief. At worst he rates pain as 7-8/10 and states that it does not ever go below 3/10. He describes that pain at times feels like intense pressure behind his eyes. Was recently started on Amitriptyline by local Neurologist (Dr. Beverly Edmondson) who also ordered MRI brain scan in July 2018. Otherwise, he is also reporting yellow drainage from his surgical wound that has been intermittent since surgery. He denies fevers, chills, recent illness. No new weakness, no paresthesias, no seizures. Social History Marital status: Single Spouse name: Years of education: Number of children: 0 Occupational History Occupation Employer Comment [employer] Social History Main Topics Smoking status: Never Smoker Smokeless tobacco: Never Used Alcohol use: Yes 6.0 oz/week Cans of Beer (12oz): 4 per week Drug use: Yes Frequency: 1.0 time per week Types: Marijuana Sexual activity: No Social History Narrative Lives by himself. Father lives in [place]. Mother lives in [place]. PAST MEDICAL HISTORY Diagnosis Date - Acid reflux - Inguinal hernia without mention of obstruction or gangrene, unilateral or unspecified, (not specified as recurrent) - Kidney stones FAMILY HISTORY Problem Relation Age of Onset - Diabetes Father s/p amputation - Coronary Artery Disease Father [place] - Heart Father aortic valve replacement Current Outpatient Prescriptions: amLODIPine (NORVASC) 5 mg tablet Take 5 mg by mouth once daily. Pitavastatin (LIVALO) 2 mg tab Take 2 mg by mouth once daily. metFORMIN ER (GLUCOPHAGE XR) 500 mg 24 hr tablet Take 500 mg by mouth daily at bedtime. No current facility-administered medications for this visit. REVIEW OF SYMPTOMS: Neurological : + Complaint of headache, as above No complaint of tinnitus No complaint of decreased hearing No complaint of diplopia No complaints of blurred vision No complaint of arm/leg numbness No problem with limb coordination No complaint of syncope No complaints of seizures No complaints of memory changes or disorientation. General : Constitutional: No recent fever or weight loss. Eyes: No history of glaucoma + Cataracts, bilateral ENMT: No recent ear infection, nasal congestion, mouth sores or sore throat. CV: No history of chest pain, palpitations or leg swelling + HLP (on Pitavastatin) + HTN (on Amlodipine) + DM (on Metformin) Respiratory: No history of SOB, wheezing or recent cough. + SAMUEL, recently diagnosed Gastrointestinal: No history of nausea, vomiting, dysphagia or abdominal pain. Genitourinary: No history of hematuria or dysuria. Musculoskeletal: No complaint of arthritis, unstable gait or arm/leg weakness Psychiatric: No history of hallucinations, depression, or anxiety NEUROLOGICAL EXAM: Higher integrative functions: Oriented to person, place AND time. Attention Span and Concentration: Good. Language: Good comprehension. Fund of Knowledge: Good. 2nd CN: Full visual recio. 3rd,4th,6th CN: Pupils (=), round, react to light, full extraocular movements. 5th CN: No decrease in facial sensation 7th CN: Facial muscles symmetric and strong. 8th CN: Hears finger rub well bilaterally. 9th CN: Gag not tested 10th CN: Spontaneous palate movement, full and symmetric. 11th CN: Full strength in shoulder shrug. 12th CN: Tongue protrusion full and midline. Sensation: No decrease in sensation in upper or lower limbs to touch. Musculoskeletal: Gait is normal. Negative romberg and Tandem gait is normal. Motor: 5/5, R=L, UE=LE. Normal muscle tone without atrophy in all limbs. Coordination: Rapid alternating movements fast and smooth all limbs. PHYSICAL EXAMINATION: BP 144/83 Pulse 85 Temp 36.7 ?C (98.1 ?F) (Oral) Resp 18 Wt 85.7 kg (188 lb 14.4 oz) SpO2 96% BMI 30.49 kg/m? General appearance: Well appearing, alert, in no acute distress, well-hydrated, well nourished. Skin: + Right scalp with dry, yellow drainage with small amount soft fluid noted under skin IMAGING STUDIES: Patient has MRI brain scan images from [employer] with him today. Per radiology report: A trace subdural fluid collection is present anteriorly on the right that measures 3 mm without significant local mass effect. No associated visible restricted diffusion. KPS SCORE: 90 MEDICAL DECISION MAKING ASSESSMENT/PLAN: 1. Right frontal meningioma s/p resection 05/18/18 - Patient's wound was seen and evaluated today by surgical nurse - Per Dr. Simons recommend evaluation in the ED and patient is agreeable - He will hand-carry MRI images on CD as well as radiology report with him to the ED - [facility] for further evaluation and management - He has our contact information and was advised to call if new symptoms, questions or concerns arise prior to next scheduled visit. - All questions were answered. Bettie Hinson, MSN, ADJUNCT MATHEMATICS INSTRUCTOR Certified Nurse Practitioner cc: Lucius Simons MD - [facility] Luis Armando Travis PRODUCTION QUALITY ANALYST 09/06/2018 3:09 PM Signed Additional intake questions: Has the patient had nausea, vomiting, diarrhea, constipation, fatigue for > 1 week? None of the above Does the patient have a decreased appetite? No Does patient want to see a Police Guard? No (yes to any of above refer patient to schedulers for dietitian appointment) ) Does patient have any new or increased numbness or tingling of extremities? No Is patient interested in fertility information? No Does patient need any prescription refills? No Electronically Signed By: Luis Armando Travis LPN Referring Provider: BETTIE HINSON ([facility]) [[id number]] Allergies As of Date: 09/06/2018 (No Known Allergies) Date Reviewed: 09/06/2018 Reviewed by: Karol (Carlitos) CARLITOS Lobo - Fully Assessed Reason for Visit: Established Patient [175] Primary Visit Diagnosis:Meningioma (HCC) [D32.9] Other Visit Diagnoses:Intractable headache, unspecified chronicity pattern, unspecified headache type [R51] Drainage from wound [T14.8XXA] Order(s):CONSULT TO NEUROLOGY [9019] Order #: [id number]: 1 Prescriptions as of 09/06/2018 Sig: AMLODIPINE 5 MG TABLET Take 5 mg by mouth once daily. PITAVASTATIN CALCIUM 2 MG TAB* Take 2 mg by mouth once daily. METFORMIN ER 500 MG TABLET,EX* Take 500 mg by mouth daily at* Problem List As Of Date 09/06/2018 Noted Resolved Kidney stones [N20.0] Acid reflux [K21.9] Rectal bleeding [K62.5] INVALID FOR* Anemia [D64.9] INVALID FOR* Meningioma (HCC) [D32.9] INVALID FOR* More... Cerebral edema (HCC) [G93.6] INVALID FOR* More... Visit Notes: >> Luis Armando Travis LPN selina Sep 06, 2018 3:08 PM Status: Signed Additional intake questions: Has the patient had nausea, vomiting, diarrhea, constipation, fatigue for > 1 week? None of the above Does the patient have a decreased appetite? No Does patient want to see a Police Guard? No (yes to any of above refer patient to schedulers for dietitian appointment) ) Does patient have any new or increased numbness or tingling of extremities? No Is patient interested in fertility information? No Does patient need any prescription refills? No Electronically Signed By: Luis Armando Travis LPN Medications Discontinued During This Encounter amoxicillin-clavulanic acid (AUGMENT* 0 06/03/2018 09/06/2018 Class: Historical Med Route: ORAL Sig: Take 1 tablet by mouth q 12 HR. Disc: Discontinued by another Health Care Provider dexamethasone (DECADRON) 2 mg tablet 60 t* 0 06/03/2018 09/06/2018 Class: Med Update Sig: Take 2mg (1/2 tablet) with breakfast for 4 days, then stop this medication Disc: Discontinued by another Health Care Provider Cosign accepted by BELKYS JONES, TANJA PHD[[id number]] on 06/03/2018 10:18 AM famotidine (PEPCID) 20 mg tablet 60 t* 0 05/20/2018 09/06/2018 Class: Print RX Route: ORAL Sig: Take 1 tablet by mouth twice daily. Disc: Discontinued by another Health Care Provider cyclobenzaprine (FLEXERIL) 10 mg tab* 0 06/06/2018 09/06/2018 Class: Historical Med Route: ORAL Sig: Take 10 mg by mouth three times daily. Disc: Discontinued by another Health Care Provider melatonin 3 mg tablet 30 t* 0 05/20/2018 09/06/2018 Class: Print RX Route: ORAL Sig: Take 1 tablet by mouth daily at bedtime. Disc: Course of therapy completed Follow-up and Disposition History Recorded Encounter Status:Closed by BETTIE HINSON CNP on 09/06/18 HOSP Observed: 09/06/2018 Status: COMPLETED Source: [place] 12:00 AM [facility] Patient:Yoly Slaughter MRN: <[id number]> Height:5' 6.5(1.689 m) Weight:188 lb 0.8 oz (85.3 kg) Outpatient Medications as of 09/07/18: amLODIPine (NORVASC) 5 mg tablet Pitavastatin (LIVALO) 2 mg tab metFORMIN ER (GLUCOPHAGE XR) 500 mg 24 hr tablet Admission/Clinic Administered Medications as of 09/07/18: amLODIPine 5 mg tab(s) (NORVASC) NaCl 0.9% iv infusion acetaminophen 650 mg tab(s) (TYLENOL) oxyCODONE-acetaminophen 5-325 mg 1-2 tablet (PERCOCET) morphine 1-4 mg injection ondansetron (PF) 4 mg injection (ZOFRAN) docusate sodium 100 mg cap(s) (COLACE) HYDROmorphone 0.4 mg injection (DILAUDID) atorvastatin 10 mg tab(s) (LIPITOR) iv contrast (radiology procedure) Problem List: Kidney stones [N20.0] Acid reflux [K21.9] Rectal bleeding [K62.5] Anemia [D64.9] Meningioma (HCC) [D32.9] Cerebral edema (HCC) [G93.6] Infection [B99.9] Wound infection [T14.8XXA, L08.9] Allergies: No Known Allergies Date Verified:09/07/18 Lab Values Lab Value Units Date High Low POTA* 3.6 mmol/L 09/06/2018 5.1 3.7 CELSO* 50.7 % 09/06/2018 51.0 39.0 Progress Notes (RADIO CT SCAN MAIN QB1): Anastasiia Laureano 09/06/2018 9:40 PM Signed Radiology Service Progress Note PATIENT NAME: Yoly Slaughter DATE OF SERVICE: September 06, 2018 TIME: 9:25 PM PATIENT IDENTITY VERIFICATION COMPLETED USING TWO (2) METHODS: Patient confirmed name verbally and ID band matches.. PATIENT GENDER DATA: Male PATIENT RELEVANT IMPLANT DATA REVIEWED: Yes CONTRAST INDUCED NEPHROPATHY RISK FACTORS: Not applicable CREATININE: Creatinine Date Value Ref Range Status 09/06/2018 0.65 (L) 0.73 - 1.22 mg/dL Final 05/17/2018 0.73 0.73 - 1.22 mg/dL Final 12/30/2012 0.66 (L) 0.70 - 1.40 mg/dL Final Creatinine (POCT) Date Value Ref Range Status 05/17/2018 0.60 (A) 0.7 - 1.4 mg/dL Final eGFR-All Other Races Date Value Ref Range Status 09/06/2018 >60 . Final Comment: eGFR (Estimated GFR) Units of measure: mL/min/1.73 meters squared eGFR is derived from the reexpressed MDRD Study equation using the following parameters: serum creatinine, age, gender and race. The creatinine assay has been calibrated to be traceable to IDMS. An eGFR <60 mL/min/1.73m2 for >3 months is consistent with chronic kidney disease. Refer to KDOQI guidelines for clinical interpretation. In patients with unstable renal function, e.g. those with acute kidney injury, the eGFR may not accurately reflect actual GFR. eGFR- Date Value Ref Range Status 09/06/2018 >60 Final P.O.C.T. RESULTS: POC done: Yes, See Lab Tab September 06, 2018 RADIOLOGIST NOTIFIED?: No ALLERGIES: Reviewed and unchanged CONTRAST ALLERGY: NO. PERIPHERAL IV ACCESS: Ambulatory: IV type: Existing peripheral IV utilized, Site assessment: Clean,Dry and Intact, Site disposition Left in for next appointment RADIOLOGY DEPARTMENT: CT; Exam(s) Completed: Brain SIGNED BY: Anastasiia Laureano September 06, 2018 9:25 PM Progress Notes (): Karol Lobo, RN, RN 09/06/2018 4:38 PM Addendum Pt presents to ED for evaluation of drainage from his incision site. Pt had R frontal craniotomy resection in 04/2018 and still reports intermittent yellow-kishore drainage from incision. Pt denies any redness/swelling or fever/chills. NAD noted, ABCs intact Previous Version Heladio Gracia MD, 09/06/2018 9:36 PM Signed ED Provider Note Patient Name: Yoly Slaughter SERVICE DATE: 09/06/18 History Patient presents with: Post Op Drainage Sent By 52 year old male PMH DM, HTN, right frontal hemangioma S/P right frontal craniotomy resection on 05/18/[address] Rizvi presents to the ED for further evaluation of worsening constant headaches and pressure behind eyes. Patient states pressure is worse when leaning down. Patient states that he does not take any medication for pain because it does not work. Additionally patient states that he's had yellow drainage from surgical site has been intermittent since surgery. Denies chest pain, shortness of breath, fever, chills, nausea, vomiting, diarrhea. PAST MEDICAL HISTORY Diagnosis Date - Acid reflux - Inguinal hernia without mention of obstruction or gangrene, unilateral or unspecified, (not specified as recurrent) - Kidney stones PAST SURGICAL HISTORY Procedure Laterality Date - EGD W/O [facility] SPECIMEN W/BX 01-19-13 - LAP REPAIR INTIAL INGUINAL HERNIA 12-23-12 right - LAPAROSCOPIC CHOLEYCYSTECTOMY Cholecystectomy, lap - SIGMOIDOSCOPY FLEX DIAG 01-19-13 poor prep FAMILY HISTORY Problem Relation Age of Onset - Diabetes Father s/p amputation - Coronary Artery Disease Father [place] - Heart Father aortic valve replacement Social History Social History Main Topics - Smoking status: Never Smoker - Smokeless tobacco: Never Used - Alcohol use 6.0 oz/week 4 Cans of Beer (12oz) per week - Drug use: Yes Frequency: 1.0 time per week Types: Marijuana - Sexual activity: No ALLERGIES No Known Allergies Review of Systems Constitutional: Negative for chills, diaphoresis, fatigue and fever. HENT: Positive for tinnitus. Negative for congestion and rhinorrhea. Eyes: Negative for discharge and redness. Respiratory: Negative for shortness of breath. Cardiovascular: Negative for chest pain. Gastrointestinal: Negative for abdominal pain, diarrhea, nausea and vomiting. Musculoskeletal: Negative for arthralgias and myalgias. Neurological: Positive for headaches. Negative for dizziness. Psychiatric/Behavioral: Negative for confusion. Physical Exam BP 152/82 Pulse 87 Temp (Src) 98.1 (Oral) Resp 18 Wt 188 lb (85.3kg) SpO2 96% Physical Exam Constitutional: He is oriented to person, place, and time. He appears well-developed and well-nourished. HENT: Head: Normocephalic and atraumatic. Eyes: Conjunctivae are normal. Neck: Trachea normal. No tracheal deviation present. Cardiovascular: Normal rate, regular rhythm and normal heart sounds. Pulmonary/Chest: Effort normal and breath sounds normal. No respiratory distress. Abdominal: Soft. Bowel sounds are normal. There is no tenderness. Neurological: He is alert and oriented to person, place, and time. He has normal strength. Normal finger to nose, normal gait, equal strength and sensation in upper and lower extremities. Skin: Skin is warm. No rash noted. Skin dry with small amount of dried yellow discharge exiting surgical incision site. Small amount of palpable fluid under healed surgical incision site. Psychiatric: He has a normal mood and affect. His behavior is normal. Nursing note and vitals reviewed. Diagnostic Testing ED Labs Ordered and Reviewed - No data to display Procedures ED Course / Clinical Impression Clinical Impressions as of Sep 06 2127 Drainage from wound Intractable headache, unspecified chronicity pattern, unspecified headache type Status post craniotomy History of cerebral meningioma MDM / Disposition / Plan Vital signs were reviewed. Triage records were reviewed. Medical records were reviewed. Nursing notes were reviewed and incorporated. Initial VS: BP 152/82 Pulse 87 Temp 36.7 ?C (98.1 ?F) (Oral) Resp 18 Wt 85.3 kg (188 lb) SpO2 96% BMI 30.34 kg/m? 52 year old male presents with post op drainage s/p craniotomy and BAY. Pt is afebrile, non-toxic and hemodynamically stable. Physical exam revealed Skin dry with small amount of dried yellow discharge exiting surgical incision site. Small amount of palpable fluid under healed surgical incision site. No focal neurologic deficits. LABS: CBC-HgB 17.2, no leukocytosis BMP- K 3.6, creatinine .65, BUN 7 CRP- .6 ESR-pending... Neurosurgery was consult and will evaluate patient. Patient has previous MRI at bedside. My shift ended and pt care will be signed off to Nicole Gutiérrez PA-C 8:07pm Waiting to hear back from neurosurgery. Pt will either be admitted to service or discharged with close follow up. Patient expressed understanding and consented to the above plan. No barriers of communication were apparent and I answered all questions. SIGNATURE: BRANNON Vela (Pa) 09/06/182008 Attending Note I have personally performed a face to face assessment of the patient and have reviewed the PA/TRANSLATOR note. My marin findings include: History is 52-year-old male, history as described above, referred by neurosurgery clinic for ED consultation for possible subdural fluid collection, concerning for possible chronic surgical site infection at previous site of right frontal craniotomy from April 2018. No new severe headache, no meningismus, no fever, no signs or symptoms consistent with increased intracranial pressure, no new focal neurologic deficits. Exam is vital signs reviewed, well appearing, standing and talking, pacing around the room. Neuro exam is grossly normal. Assessment/Plan are history as described above, will plan for neurosurgical consult for possible admission for management of chronic postoperative wound. Signature: Heladio Gracia MD Date: 09/06/2018 Time: 9:34 PM Heladio Gracia MD 09/06/[id number] Previous Version Radha Peters, RN, RN 09/06/2018 7:24 PM Signed Assumed care of patient. Agree with triage note. No redness/drainage from incision at this time. Reports headache that is constant. Pt states his headache is 3-5/10 at baseline. Pt. is alert and oriented X3. ABC's intact, respirations even and unlabored. Skin acyanotic, warm and dry. Pain 5/10. Denies CP/SOB, numbness/tingling, weak/dizzy, fever/chills, n/v/d. Will notify MD of any acute changes. Side rails up x2, bed in lowest locked position, call light within reach, ID band on. Will continue to monitor. NICOLE GUTIÉRREZ PA-C 09/06/2018 11:55 PM Cosign Needed ED Midlevel Continuation of Care Note September 06, 2018 8:03 PM Yoly Thompson Kasandra was endorsed to me by Michael Bryson PA-C. Briefly, the patient initially presented from an outpatient appointment for evaluation of post-op drainage and persistent headache. Pt s/p R frontal craniotomy in 04/2018, having intermittent purulent drainage and worsening headaches since that time. MRI in Jul 2018 concerning for a subdural fluid collection. Signout note reviewed Diagnostics were reviewed. Marin findings: MRI in Jul 2018 concerning for subdural fluid collection. Today CBC without leukocytosis, BMP at baseline, CRP and ESR normal. CT brain w/wo contrast concerning for osteomyelitis with meningeal thickening questionable for reactive vs infected. CT BRAIN WO/W IVCON Final Result IMPRESSION: Permeative appearance of the right frontal craniotomy and surrounding bone concerning for osteomyelitis with subjacent pachymeningeal thickening and enhancement either reactive or representing pachymeningeal involvement. No tiffanie extra-axial collection. Developmental Mathematics Instructor: RAVI Transcribe Date/Time: Sep 06 2018 9:52P Dictated by : NIKA SALAMANCA, This examination was interpreted and the report reviewed and electronically signed by: NAY BANKS MD on Sep 06 2018 10:09PM EST New Physical Exam findings: none Clinical Course: Pt remained resting comfortably and HDS. NSGY resident evaluated and reviewed pt's OSH imaging. Pt was offered medication for headache but declined. They additionally requested CT brain w/wo contrast be performed to again evaluate collection. Collection was not well visualized on CT, though image was suggestive of osteomyelitis with reactive vs involvement of meninges. Plan: Case discussed with neurosurgery who advised pt would benefit from inpatient admission and management under their service. Pt was admitted to Step Down unit under neurosurgery team. Pt remained stable in ED while awaiting bed. BRANNON HAMLIN (Pa) 09/06/18 3079 Previous Version Andres Paris MD 09/07/2018 3:06 PM Addendum NEUROSURGERY ADMISSION HISTORY AND PHYSICAL EXAMINATION PLEASE DO NOT REMOVE FROM THE CHART OR MODIFY PRINTED COPY Patient Name: Yoly Slaughter CHIEF COMPLAINT: Wound drainage REASON FOR ADMISSION: Wound infection HPI: 52 year old right-handed male with PMH significant for R frontal meningioma s/p resection 05/18/18 (GTR), DM, HTN, HLD, bilateral cataracts s/p surgery 02/2018, who presents with 1 month of intermittent yellow drainage from wound. Found on outpatient MRI to have dural thickening, slight fluid collection underlying old crani site with enhancement no diffusion restriction. Sent to ED for evaluation. Patient's meningioma was initially diagnosed on a tinnitus and headache workup 02/2018, found to have a 2.5cm R frontal convexity meningioma. Underwent R crani for resection 05/18/18 (Dr. Rizvi), gross total resection, pathology grade 1 meningioma. He has since had persistent 5/10 headaches for which he was referred to a neurologist for workup. Repeat MRI on 08/18/18 demonstrated findings detailed above and he was referred to [facility] neurosurgery. He notes that he first had yellowing drainage from his incision in 06/2018 for which he was told to just monitor, no abx given. Over the last month, he has noted on 3 or 4 separate occasions slight yellowish-white drainage when wiping his hand on the incision site. Patient was seen in clinic today with a punctate area of drainage from his incision and referred to the ED for further evaluation. He denies any fevers, chills, nausea, vomiting, neck stiffness, photophobia, or change in his stable headaches recently. In the ED, WBC, ESR, CRP all normal, afebrile Anti-platelets/anti-coagulants: none PAST MEDICAL HISTORY: PAST MEDICAL HISTORY Diagnosis Date - Acid reflux - Inguinal hernia without mention of obstruction or gangrene, unilateral or unspecified, (not specified as recurrent) - Kidney stones PAST SURGICAL HISTORY: PAST SURGICAL HISTORY Procedure Laterality Date - [facility] - LAP REPAIR INTIAL INGUINAL HERNIA 12-23-12 right - LAPAROSCOPIC CHOLEYCYSTECTOMY Cholecystectomy, lap - SIGMOIDOSCOPY FLEX DIAG 01-19-13 poor prep FAMILY HISTORY: FAMILY HISTORY Problem Relation Age of Onset - Diabetes Father s/p amputation - Coronary Artery Disease Father [place] - Heart Father aortic valve replacement SOCIAL HISTORY: Social History Marital status: Single Spouse name: Years of education: Number of children: 0 Occupational History Occupation Employer Comment [employer] Social History Main Topics Smoking status: Never Smoker Smokeless tobacco: Never Used Alcohol use: Yes 6.0 oz/week Cans of Beer (12oz): 4 per week Drug use: Yes Frequency: 1.0 time per week Types: Marijuana Sexual activity: No Social History Narrative Lives by himself. Father lives in [place]. Mother lives in [place]. MEDICATIONS: amLODIPine (NORVASC) 5 mg tablet Take 5 mg by mouth once daily. Pitavastatin (LIVALO) 2 mg tab Take 2 mg by mouth once daily. metFORMIN ER (GLUCOPHAGE XR) 500 mg 24 hr tablet Take 500 mg by mouth daily at bedtime. Current hospital medications: iv contrast (radiology procedure) INTRAVENOUS DIRECTED PRN NaCl 0.9% 1,000 mL iv bolus 1,000 mL INTRAVENOUS ONCE ALLERGIES: ALLERGIES No Known Allergies COMPLETE REVIEW OF SYSTEMS: See HPI PHYSICAL EXAM: BP 154/83 Pulse (!) 91 Temp 36.7 ?C (98.1 ?F) (Oral) Resp 18 Wt 85.3 kg (188 lb) SpO2 95% BMI 30.34 kg/m? AOx3, NAD PERRL, EOMI FS, TM FSILT No drift BUE 5/5 BLE 5/5 SILT R frontal incision with punctate area of purulent drainage expressed with pressure No tenderness, erythema present No fluctuance appreaciated Heart: RRR, no r/m/g Chest: non-labored, chest rise symmetric Abdomen: Soft, NT/ND DATA: Radiology: See HPI Laboratory: CBC, Coags, BMP, Mg, Phos Recent Labs 09/06/18 1810 WBC 7.14 HB 17.2* HCT 50.7 PLT 219 NA 137 K 3.6* CHLOR 97 CO2 25 BUN 7* CREAT 0.65* GLUC 114* CA 10.1 ASSESSMENT AND PLAN: 52 year old right-handed male with PMH significant for R frontal meningioma s/p resection 05/18/18 (GTR), DM, HTN, HLD, bilateral cataracts s/p surgery 02/2018, who presents with 1 month of intermittent yellow drainage from wound. Found on outpatient MRI to have dural thickening, slight fluid collection underlying old crani site with enhancement no diffusion restriction. Sent to ED for evaluation. Wound with purulent drainage. WBC, ESR, CRP normal, afebrile. - admit under Dr. Andres Paris with plans for wound washout tomorrow - CT brain w/wo in ED - will decided on level of care pending imaging results - preop, admission labs, tele - OR tomorrow for wound washout, will consent patient at bedside - admission labs, including TANDS, nasal swab - hold off an abx - hold anti-platelet/anti-coagulation/DVT chemoprophylaxis - admission EKG, CXR, DVT scan Above plan discussed with chief Dr. Bharat Aldana and Staff Dr. Andres Paris. SIGNATURE: Sadi Duarte MD PGY-2 [id number] Neurosurgery Pager: [phone] 09/06/2018 Please page [phone] after 6 PM and on weekends Attending Note I evaluated the patient and personally participated in the marin components. I agree with the resident's findings and plan as documented and have discussed the case and management of the patient's care with the resident. OR today for washout, bone removal and probable titanium mesh cranioplasty. Signature: Andres Paris MD Date: 09/07/2018 Time: 3:06 PM Previous Version Radha Peters RN, RN 09/06/2018 10:20 PM Addendum Entered in error. Previous Version Radha Peters RN, RN 09/06/2018 11:03 PM Signed Handoff report called to CARLITOS Romo. Aram Turner RN, RN 09/07/2018 2:12 AM Signed Pt transport here to [facility] pt to [id number]. Paperwork given to transporter. Jerson Lester MD 09/07/2018 9:47 AM Incomplete Neuro-Infectious Diseases INITIAL CONSULT INFECTIOUS DISEASE SERVICE DATE: 09/07/2018 SERVICE TIME: We were asked to evaluate Mr. Yoly Slaughter, a 52 year old yo male by for . Our findings and recommendations will be communicated through the shared medical record. Subjective HPI: Exposure History Travel: Pets and animal exposure: Hobbies: Employment: TB exposure: Significant other exposures: CURRENT ANTIBIOTICS: Current other medications reviewed. Current Facility-Administered Medications: amLODIPine 5 mg tab(s) (NORVASC) 5 mg ORAL DAILY NaCl 0.9% iv infusion 75 mL/hr INTRAVENOUS CONTINUOUS acetaminophen 650 mg tab(s) (TYLENOL) 650 mg ORAL q 4 H PRN oxyCODONE-acetaminophen 5-325 mg 1-2 tablet (PERCOCET) 1-2 tablet ORAL q 4 H PRN morphine 1-4 mg injection 1-4 mg INTRAVENOUS q 1 H PRN ondansetron (PF) 4 mg injection (ZOFRAN) 4 mg INTRAVENOUS q 6 H PRN docusate sodium 100 mg cap(s) (COLACE) 100 mg ORAL BID HYDROmorphone 0.4 mg injection (DILAUDID) 0.4 mg INTRAVENOUS q 4 H PRN atorvastatin 10 mg tab(s) (LIPITOR) 10 mg ORAL DAILY WITH BREAKFAST iv contrast (radiology procedure) INTRAVENOUS DIRECTED PRN PAST MEDICAL HISTORY Diagnosis Date - Acid reflux - Inguinal hernia without mention of obstruction or gangrene, unilateral or unspecified, (not specified as recurrent) - Kidney stones PAST SURGICAL HISTORY Procedure Laterality Date - EGD W/O [facility] SPECIMEN W/BX 01-19-13 - LAP REPAIR INTIAL INGUINAL HERNIA 12-23-12 right - LAPAROSCOPIC CHOLEYCYSTECTOMY Cholecystectomy, lap - SIGMOIDOSCOPY FLEX DIAG 01-19-13 poor prep Social History Marital status: Single Spouse name: Years of education: Number of children: 0 Occupational History Occupation Employer Comment [employer] Social History Main Topics Smoking status: Never Smoker Smokeless tobacco: Never Used Alcohol use: Yes 6.0 oz/week Cans of Beer (12oz): 4 per week Drug use: Yes Frequency: 1.0 time per week Types: Marijuana Sexual activity: No Social History Narrative Lives by himself. Father lives in [place]. Mother lives in [place]. FAMILY HISTORY Problem Relation Age of Onset - Diabetes Father s/p amputation - Coronary Artery Disease Father [place] - Heart Father aortic valve replacement ALLERGIES No Known Allergies Objective REVIEW OF SYSTEMS: {ROS options lists or defaults :04158} PHYSICAL EXAM:Temp (24hrs), Av.7 ?C (98.1 ?F), Min:36.6 ?C (97.8 ?F), Max:36.8 ?C (98.2 ?F) Temp (120hrs), Av.7 ?C (98.1 ?F), Min:36.6 ?C (97.8 ?F), Max:36.8 ?C (98.2 ?F) {INFD PE SELECTION WITH DEFAULTS - MIXED:19989::GENERAL APPEARANCE: Patient in no acute distress.,SKIN: Skin color, texture, turgor normal. No rashes or lesions. No peripheral signs of infectious endocarditis,HEAD/SINUSES: No significant findings.,EYES: PERRLA, EOMI, conjunctivae clear.,EARS: External ears normal.,NOSE: Nares normal. Septum midline.,OROPHARYNX: Lips, mucosa, and tongue normal. Teeth and gums normal. Oropharynx normal.,NECK: Supple, full range of motion, no lymphadenopathy, normal thyroid, no carotid bruits, no JVD.,BACK: no CVA tenderness, no spinal point tenderness, no paraspinal tenderness,LUNGS: Normal breath sounds, clear to auscultation, percussion normal, no wheezes, or crackles.,HEART: Normal PMI, Regular rate/rhythm, normal heart sounds, and no murmurs.,ABDOMEN: Soft, non tender, no palpable masses, normal bowel sounds, no abdominal bruits, No hepatosplenomegaly.,EXTREMITIES: No edema or tenderness: ,NEURO: Awake, alert and oriented x3, no involuntary motions.} LABS: WBC (k/uL) Date Value 09/06/2018 7.14 05/17/2018 7.43 12/30/2012 8.07 Creatinine (mg/dL) Date Value 09/06/2018 0.65 05/17/2018 0.73 12/30/2012 0.66 Creatinine (POCT) (mg/dL) Date Value 05/17/2018 0.60 Lab Results Component Value Date NEUTP 63.8 09/06/2018 ABSNEUT 4.55 09/06/2018 LYMPHP 25.6 09/06/2018 ABSLYMPH 1.83 09/06/2018 ABSMONO 0.56 09/06/2018 EODINP 2.2 09/06/2018 ABSEOSIN 0.16 09/06/2018 BASOP 0.6 09/06/2018 ABSBASO 0.04 09/06/2018 Lab Results Component Value Date PLT 219 09/06/2018 HB 17.2 09/06/2018 HCT 50.7 09/06/2018 ALB 4.5 12/30/2012 CA 10.1 09/06/2018 TBILI 1.6 12/30/2012 ALKPHOS 84 12/30/2012 AST 16 12/30/2012 GLUC 114 09/06/2018 BUN 7 09/06/2018 NA 137 09/06/2018 K 3.6 09/06/2018 CHLOR 97 09/06/2018 CO2 25 09/06/2018 ANION 15 09/06/2018 ALT 15 12/30/2012 WSR (mm/hr) Date Value 09/06/2018 8 CRP (mg/dL) Date Value 09/06/2018 0.6 No results found for: VANCOPRE, VANCORA MICROBIOLOGY: IMAGING: DATA: Diagnostic Tests Reviewed for Today's Visit: {DIAGNOSTIC TEST REVIEW:[id number]} Impression/Recommendations Principal Problem: Infection POA: Unknown Assessment AND Plan: Active Problems: Wound infection POA: Yes Assessment AND Plan: Resolved Problems: * No resolved hospital problems. * Thank you very much for inviting us to participate in the care of this patient. SIGNATURE: Jerson Lester MD PATIENT NAME: Yoly Slaughter DATE: September 07, 2018 TIME: 9:47 AM PAGER/CONTACT #: Neyda Aponte RN, RN 09/07/2018 2:31 PM Signed CARE MANAGEMENT PROGRESS NOTE SERVICE DATE: 09/07/2018 SERVICE TIME: 1429 LOS: 0 days Needs Prior to Discharge: To Be Determined;Procedure;Other: See Comment (ID recommendations) CM attempted to complete face to face assessment; however., pt. was off the unit. Plan for OR today for wound washout. ID on consult. Anticipate a need for IV antibiotics. Will follow for D/C planning needs. SIGNATURE: Neyda Aponte RN PATIENT NAME: Yoly Slaughter DATE: September 07, 2018 TIME: 2:29 PM PAGER/CONTACT #: [phone] Tristian Campos MD, MD 09/07/2018 2:49 PM Incomplete Neurosurgery POC Note Interval HPI: S/p Washout for wound infection Objective: 09/07/18 0600 09/07/18 0800 09/07/18 1000 09/07/18 1200 BP: 111/66 122/61 114/71 126/82 Pulse: 75 72 75 79 Resp: Temp: 36.6 ?C (97.8 ?F) 36.9 ?C (98.5 ?F) TempSrc: Oral Oral SpO2: 95% 93% 95% 95% Weight: 85.3 kg (188 lb 0.8 oz) Height: EXAM: A AND Ox3 PERRL, EOMI FS, TML BUE 5/5 BLE 5/5 A/P: 52 year old y/o male POD #0 s/p Washout for wound infection - PACU - Pain management - No imaging - Grisel back to step down unit Tristian Campos MD Fellow in Functional Neurosurgery [facility] Pager [phone] BRAIN W/WO CONTRAST Observed: 08/18/2018 Status: F Source: [place] 2:05 PM [facility] REPOSITORY [facility] Imaging Services [address] [place] [id number] Brain W/WO Contrast MR#: [id number] Acct: [id number] Name: YOLY SLAUGHTER Rep #: [id number] : 1965 M 52 From: Huy Meyers MD PCP: Louann Ruiz NP Status: REG CLI Study: Brain W/WO Contrast Date of Exam: 08/18/18 Exam# [id number] Ordering Dr: Beverly Edmondson MD STUDY: MRI BRAIN WITH AND WITHOUT CONTRAST REASON FOR EXAM: Male, 52 years old. Brain tumor TECHNIQUE: Standardized multiplanar fat and water weighted pulse sequences were obtained. 8 ml of Gadavist contrast material was administered intravenously for the contrast portion of the examination. COMPARISON: 03/14/2018 FINDINGS: Normal size of the ventricles and extra-axial spaces for the patient's age. Normal white matter tracts of the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 brain. Normal bilateral basal ganglia. Normal thalami. Interval resection of right frontal meningioma. Normal flow voids within the major intracranial circulation suggesting patency by spin echo criteria. Prominent dural enhancement is noted anteriorly and laterally on the right which is likely reactive in nature. A trace subdural fluid collection is present anteriorly on the right that measures 3 mm without significant local mass effect. No associated visible restricted diffusion. This is most likely a postoperative effusion. 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 Normal sella turcica, pituitary gland, infundibular stalk, optic chiasm and hypothalamus. Normal tectal plate and pineal gland. Normal midbrain, poly and medulla. Normal cerebellum. Normal basal cisterns. Normal bilateral temporal bones. Normal bilateral internal auditory canals. Bilateral lens replacements. Normal visualized paranasal sinuses. Right frontal craniotomy. Normal visualized soft tissue structures. Normal visualized upper cervical spine. MRI/Brain W/WO Contrast IMPRESSION: Interval resection of right frontal meningioma. Reactive prominent right frontal dural enhancement. Small right frontal dural fluid collection without restricted diffusion, likely related to postoperative effusion. Short interval follow-up is recommended to ensure stability or resolution, however. No evidence of acute infarct. Electronically Signed: Huy Meyers MD at 6:38 EST Tel , Service support , CC: Louann Ruiz NP; Beverly Edmondson MD Developmental Mathematics Instructor: Signed MR-BRAIN W/WO Observed: 08/18/2018 Status: F Source: [place] [facility]AST [place] 12:00 AM [facility] [place] REPOSITORY Images were obtained outside of [facility] [id number] PROGRESS Observed: 06/10/2018 Status: COMPLETED Source: [place] 11:01 AM [facility] REPOSITORY HNO ID: [id number] Author: Rock Oliveros) CARLITOS Mandujano Service: (none) Author Type: Registered Nurse Type: Progress Notes Filed: 06/10/2018 11:09 AM Note Text: Patient s/p craniotomy to remove right sided meningioma with Dr. Rizvi on 05/18/18. He came back for post op appointments on 06/03/18. At that visit there was a subgaleal fluid collection present and sutures were left in place per Dr. Rizvi. Patient returned today for suture removal. He is 23 days post op today. Sutures removed without difficulty. Well-approximated. No signs and symptoms of infection. After sutures were removed one spot began trickling blood. Patient reported that one spot that began bleeding in the car. There was a small scab present. Pressure was held for over 10 mins, bleeding would stop but start again. Neurosurgery fellow paged to assess. Single suture placed. Patient will have suture removed in 10 days by his PCP. Wound was clean and dry when patient left. Reviewed wound care with Yoly with good understanding. Aware to phone office with any questions or concerns. Rock Mandujano RN, BSN #[id number] CNNURSE Observed: 06/10/2018 Status: COMPLETED Source: [place] 11:00 AM [facility] REPOSITORY Nurse Visit (NSCAMN) YOLY SLAUGHTER ([id number]) 1965 M Date Time Provider Department 06/10/18 11:00 AM ROCK MANDUJANO (CARLITOS) [facility] During your visit today, we recorded the following information about you: Temperature Pulse Respiration Blood pressure 98.9 degrees 86/minute 18/minute 123/76 Weight 79.8 kg Luis Armando Travis LPN 06/10/2018 10:24 AM Signed Additional intake questions: Has the patient had nausea, vomiting, diarrhea, constipation, fatigue for > 1 week? None of the above Does the patient have a decreased appetite? No Does patient want to see a Police Guard? No (yes to any of above refer patient to schedulers for dietitian appointment) ) Does patient have any new or increased numbness or tingling of extremities? No Is patient interested in fertility information? No Does patient need any prescription refills? No Electronically Signed By: Luis Armando Mandujano RN, RN 06/10/2018 11:09 AM Signed Patient s/p craniotomy to remove right sided meningioma with Dr. Rizvi on 05/18/18. He came back for post op appointments on 06/03/18. At that visit there was a subgaleal fluid collection present and sutures were left in place per Dr. Rizvi. Patient returned today for suture removal. He is 23 days post op today. Sutures removed without difficulty. Well-approximated. No signs and symptoms of infection. After sutures were removed one spot began trickling blood. Patient reported that one spot that began bleeding in the car. There was a small scab present. Pressure was held for over 10 mins, bleeding would stop but start again. Neurosurgery fellow paged to assess. Single suture placed. Patient will have suture removed in 10 days by his PCP. Wound was clean and dry when patient left. Reviewed wound care with Yoly with good understanding. Aware to phone office with any questions or concerns. Rock Mandujano RN, BSN #[id number] Referring Provider: TANJA RIZVI [[id number]] Allergies As of Date: 06/10/2018 (No Known Allergies) Date Reviewed: 06/10/2018 Reviewed by: Luis Armando Travis LPN - Fully Assessed Reason for Visit: Wound Check [133] Reason For Visit History Recorded Primary Visit Diagnosis:Meningioma (HCC) [D32.9] Prescriptions as of 06/10/2018 Sig: AMOXICILLIN 875 MG-POTASSIUM * Take 1 tablet by mouth q 12 H* CYCLOBENZAPRINE 10 MG TABLET Take 10 mg by mouth three avi* DEXAMETHASONE 2 MG TABLET Take 2mg (1/2 tablet) with br* FAMOTIDINE 20 MG TABLET Take 1 tablet by mouth twice * MELATONIN 3 MG TABLET Take 1 tablet by mouth daily * METFORMIN ER 500 MG TABLET,EX* Take 500 mg by mouth daily at* Problem List As Of Date 06/10/2018 Noted Resolved Kidney stones [N20.0] Acid reflux [K21.9] Rectal bleeding [K62.5] INVALID FOR* Anemia [D64.9] INVALID FOR* Meningioma (HCC) [D32.9] INVALID FOR* More... Cerebral edema (HCC) [G93.6] INVALID FOR* More... Visit Notes: >> Luis Armando Travis LPN WedJun 10, 2018 10:23 AM Status: Signed Additional intake questions: Has the patient had nausea, vomiting, diarrhea, constipation, fatigue for > 1 week? None of the above Does the patient have a decreased appetite? No Does patient want to see a Police Guard? No (yes to any of above refer patient to schedulers for dietitian appointment) ) Does patient have any new or increased numbness or tingling of extremities? No Is patient interested in fertility information? No Does patient need any prescription refills? No Electronically Signed By: Luis Armando Travis LPN Medications Discontinued During This Encounter acetaminophen (TYLENOL) 325 mg tablet 05/20/2018 06/10/2018 Class: OTC Route: ORAL Sig: Take 2 tablets by mouth every 4 hours as needed. Disc: Discontinued by another Health Care Provider methocarbamol (ROBAXIN) 500 mg tablet 90 t* 0 05/20/2018 06/10/2018 Class: Print RX Route: ORAL Sig: Take 1 tablet by mouth every 6 hours as needed. Disc: Discontinued by another Health Care Provider Encounter Status:Closed by ROCK MANDUJANO on 06/10/18 L/S SPINE MIN 4 Observed: 06/06/2018 Status: F Source: [facility] 10:44 AM [facility] REPOSITORY [facility] Imaging Services [address] [place] [address] 140[address] L/S Spine Min 4 Views MR#: [id number] Acct: [id number] Name: MARIOBRIANYOLY Rep #: [id number] : 1965 M 52 From: Jose Alcantara DO PCP: Louann Ruiz NP Status: REG CLI Study: L/S Spine Min 4 Views Date of Exam: 06/06/18 Exam# [id number] Ordering Dr: Sera Adrian STUDY: X-RAY - LUMBAR SPINE REASON FOR EXAM: Male, 52 years old. Low back pain with leg pain TECHNIQUE: 5 view(s) of the lumbar spine were obtained. COMPARISON: None FINDINGS: Normal lumbar lordosis. There is no substantial scoliosis. There is a normal alignment of the vertebrae. Normal vertebral bodies and endplates. Normal disc space heights. The soft tissue structures are unremarkable. RAD/L/S Spine Min 4 Views IMPRESSION: Normal x-ray examination of the lumbar spine. Electronically Signed: Jose Del RioDO chad at 9:54 EDT Tel , Service support , CC: Louann Ruiz NP; GUERLINE Adrian Developmental Mathematics Instructor: Signed EMERGENCY DEPARTMENT Observed: 06/03/2018 Status: F Source: [place] SUMMARY 9:49 PM [facility] REPOSITORY [facility] Medical Records Department [address] [place] [address] Emergency Department Summary 06/03/18 1916 MR#: [id number] Acct: [id number] Name: YOLY SLAUGHTER Rep #: [id number] : 1965 52 From: Emily Perez MD PCP: Louann Ruiz NP Status: DEP ER - ER Visit Summary Date of Service: 06/03/18 Chief Complaint: Dog bite History of Present Illness: The patient is a 52 M [...] distress. Head neck examination grossly unremarkable other than a healing surgical wound to the right frontal scalp. Heart is regular rate and rhythm. Lung sounds are clear. Abdomen is soft nontender. Right forearm and hand reveals multiple abrasions and superficial lacerations. CT sheet for details. Patient has full strength and sensation with good range of motion. Test Results: Right forearm x-rays reveal soft tissue injury without bony injury. Right hand x-ray reveals no osseous injury. There is an indeterminate 0.8 mm opacity projecting over the distal phalanx soft tissues. This may be a foreign body. Emergency Department Course and Treatment: Wounds were cleansed and dressed. Patient is treated with [...] Treatment Plan: [] Disposition: Discharge Impression: Dog bites to right hand/forearm This note was generated with [employer] dictation software. It may contain incorrect words, spelling, and punctuation that were not noted in review of the chart prior to signing ED Disposition - Plan for ED Patient: Chief Complaint: Bite Referrals: Louann Ruiz, CONTROL CLERK AUDITING-C [Primary Care Provider] - What to do if you have Problems For any increased pain, shortness of breath, bleeding, nausea or vomiting, chest pain, or any unexpected problems, contact your Primary Care Provider. Call [facility] ([phone]) or report to the closest Emergency Room. Call 911 if necessary. 06/03/182148 <Electronically signed by Emily Perez MD> Date Emily Perez MD Cosigner Signature (If Indicated): Date CC: Louann Ruiz NP DISCHARGE INSTRUCTION Observed: 06/03/2018 Status: F Source: [place] 7:19 PM [facility] REPOSITORY [facility] Medical Records Department [address] [place] [address] Discharge Instruction 06/03/181917 MR#: [id number] Acct: [id number] Name: KASANDRAYOLY Rep #: [id number] : 1965 52 From: Emily Perez MD PCP: Louann Ruiz NP Status: REG ER ED Disposition - Plan for ED Patient: Disposition: Home or Assisted Living Chief Complaint: Bite Instructions: ED Bite Dog Prescriptions: Amox/Clavulanate Tablet [Augmentin Tablet] 875 mg PO Q12H #20 tablet Referrals: Louann Ruiz, CONTROL CLERK AUDITING-C [Primary Care Provider] - 5-7 Days What to do if you have Problems For any increased pain, shortness of breath, bleeding, nausea or vomiting, chest pain, or any unexpected problems, contact your Primary Care Provider. Call [facility] ([phone]) or report to the closest Emergency Room. Call 911 if necessary. 06/03/181918 <Electronically signed by Emily Perez MD> Date Emily Perez MD Cosigner Signature (If Indicated): Date CC: Louann Ruiz NP FOREARM 2 VIEWS Observed: 06/03/2018 Status: F Source: [place] 5:53 PM [facility] REPOSITORY [facility] Imaging Services [address] [place] [address] Forearm 2 Views MR#: [id number] Acct: [id number] Name: YOLY SLAUGHTER Rep #: [id number] : 1965 M 52 From: Sarah Sow MD PCP: Louann Ruiz NP Status: PRE ER Study: Forearm 2 Views Date of Exam: 06/03/18 Exam# [id number] Ordering Dr: Emily Perez MD STUDY: X-RAY [...] Sow MD at 18:31 EDT , Service support , CC: Louann Ruiz NP; Emily Perez MD Developmental Mathematics Instructor: Signed HAND MIN 3 VIEWS Observed: 06/03/2018 Status: F Source: [place] 5:53 PM [facility] REPOSITORY [facility] Imaging Services [address] [place] [address] Hand Min 3 Views MR#: [id number] Acct: [id number] Name: YOLY SLAUGHTER Rep #: [id number] : 1965 M 52 From: Carol Mott MD PCP: Hill MORALES, Louann Status: REG ER Study: Hand Min 3 Views Date of Exam: 06/03/18 Exam# [id number] Ordering Dr: Emily Perez MD STUDY: X-RAY - RIGHT HAND REASON FOR EXAM: Male, 52 years old. Bit by dog TECHNIQUE: 3 view(s) of the hand. COMPARISON: None. FINDINGS: There is joint space narrowing of the radiocarpal articulation consistent with degenerative arthrosis. Normal distal radioulnar joint. Normal visualized carpal bones. Normal carpal articulations Normal carpometacarpal articulation of the thumb. Normal second through fifth carpometacarpal joints. Normal metacarpi. Normal metacarpophalangeal joint of the thumb. Normal interphalangeal joint of the thumb. Normal proximal and distal phalanges of the thumb. Normal metacarpophalangeal joints of the second through [...] a retained foreign body. Electronically Signed: Carol Mott MD at 19:05 EDT Tel , Service support , CC: Louann Ruiz CONTROL CLERK AUDITING; Emily Perez MD Developmental Mathematics Instructor: Signed PROGRESS Observed: 06/03/2018 Status: COMPLETED Source: [place] 12:16 PM [facility] REPOSITORY HNO ID: [id number] Author: Tanja Rizvi Service: (none) Author Type: Physician Type: Progress Notes Filed: 06/03/2018 12:18 PM Note Text: [facility] OUTPATIENT VISIT Yoly returns for a postoperative visit. He has a number of generalized complaints including pain in his legs and headaches. BP 151/81 Pulse 88 Temp 36.8 ?C (98.2 ?F) (Oral) Resp 18 Wt 78 kg (171 lb 14.4 oz) SpO2 96% BMI 27.75 kg/m? Awake, Alert Ox3 Speech clear and fluent VFFTC, PEERL, EOMI, Face symmetric, TML Motor 5/5 throughout Sensation intact to LT Gait stable Incision is healing well. There is some subgaleal fluid but it is not indurated or tender. Final pathology: WHO grade I meningioma. We will leave the win in for another week due to the fluid collection. Taper steroids in the meantime. Given benign pathology, would repeat MRI in 1 year. Tanja Rizvi MD PhD CNOV Observed: 06/03/2018 Status: COMPLETED Source: [place] 9:10 AM [facility] REPOSITORY Office Visit (NSCAMN) YOLY SLAUGHTER ([id number]) 1965 M Date Time Provider Department 06/03/18 9:10 AM TANJA RIZVI NSCAMN During your visit today, we recorded the following information about you: Temperature Pulse Respiration Blood pressure 98.2 degrees 88/minute 18/minute 151/81 Weight 78 kg Luis Armando Travis LPN 06/03/2018 9:29 AM Signed Additional intake questions: Has the patient had nausea, vomiting, diarrhea, constipation, fatigue for > 1 week? None of the above Does the patient have a decreased appetite? No Does patient want to see a Police Guard? No (yes to any of above refer patient to schedulers for dietitian appointment) ) Does patient have any new or increased numbness or tingling of extremities? No Is patient interested in fertility information? No Does patient need any prescription refills? No Electronically Signed By: Luis Armando Rizvi MD PhD 06/03/2018 12:18 PM Signed [facility] OUTPATIENT VISIT Yoly returns for a postoperative visit. He has a number of generalized complaints including pain in his legs and headaches. BP 151/81 Pulse 88 Temp 36.8 ?C (98.2 ?F) (Oral) Resp 18 Wt 78 kg (171 lb 14.4 oz) SpO2 96% BMI 27.75 kg/m? Awake, Alert Ox3 Speech clear and fluent VFFTC, PEERL, EOMI, Face symmetric, TML Motor 5/5 throughout Sensation intact to LT Gait stable Incision is healing well. There is some subgaleal fluid but it is not indurated or tender. Final pathology: WHO grade I meningioma. We will leave the win in for another week due to the fluid collection. Taper steroids in the meantime. Given benign pathology, would repeat MRI in 1 year. Tanja Rizvi MD PhD Referring Provider: TANJA RIZVI [[id number]] Allergies As of Date: 06/03/2018 (No Known Allergies) Date Reviewed: 06/03/2018 Reviewed by: Luis Aramndo Travis LPN - Fully Assessed Reason for Visit: Established Patient [175] Primary Visit Diagnosis:Meningioma (HCC) [D32.9] Prescriptions as of 06/03/2018 Sig: ACETAMINOPHEN 325 MG TABLET Take 2 tablets by mouth every* METHOCARBAMOL 500 MG TABLET Take 1 tablet by mouth every * FAMOTIDINE 20 MG TABLET Take 1 tablet by mouth twice * MELATONIN 3 MG TABLET Take 1 tablet by mouth daily * X DEXAMETHASONE 2 MG TABLET Continue 4mg (2 tablets) in t* METFORMIN ER 500 MG TABLET,EX* Take 500 mg by mouth daily at* Problem List As Of Date 06/03/2018 Noted Resolved Kidney stones [N20.0] Acid reflux [K21.9] Rectal bleeding [K62.5] INVALID FOR* Anemia [D64.9] INVALID FOR* Meningioma (HCC) [D32.9] INVALID FOR* More... Cerebral edema (HCC) [G93.6] INVALID FOR* More... Visit Notes: >> Luis Armando Travis LPN WedJun 03, 2018 9:27 AM Status: Signed Additional intake questions: Has the patient had nausea, vomiting, diarrhea, constipation, fatigue for > 1 week? None of the above Does the patient have a decreased appetite? No Does patient want to see a Police Guard? No (yes to any of above refer patient to schedulers for dietitian appointment) ) Does patient have any new or increased numbness or tingling of extremities? No Is patient interested in fertility information? No Does patient need any prescription refills? No Electronically Signed By: Luis Armando Travis LPN Encounter Status:Closed by BELKYS JONES, TANJA PHD on 06/03/18 [facility] Observ[facility]: 05/26/2018 Status: COMPLETED Source: [place] 12:00 AM [facility] REPOSITORY Telephone ([facility]) YOLY SLAUGHTER ([id number]) 1965 M Date Time Provider Department 05/26/18 ROCK MANDUJANO (CARLITOS) [facility] During your visit today, we recorded the following information about you: Rock Mandujano RN, RN 05/26/2018 9:39 AM Signed ----- Message from Neyda Fofana sent at 05/25/2018 11:13 AM EDT ----- Regarding: concerns: meds Contact: Pt want something stronger than tylenol for his headaches, looking for a muscle relaxer if possible. He said that he only have 2 oxy's left. Thanks, Neyda Mandujano RN, RN 05/26/2018 9:41 AM Signed I received the message below regarding the patients request for more pain medication. I called the patient yesterday and again today, messages were left on his identified voicemail to call the office. I was not able to reach the patient. Rock Mandujano RN, BSN #[id number] Rock Mandujano RN, RN 05/26/2018 10:10 AM Signed Patient returned my phone call. He reports a dull headache that sounds to be getting better everyday. He has two Percocet left. He will try extra strength Tylenol. He is aware not to take more than the recommended daily dosage. He will try that today and call tomorrow with an update. Otherwise, he reports feeling good, he thinks his incision looks great with no drainage. Rock Mandujano RN, BSN #[id number] Allergies As of Date: 05/26/2018 (No Known Allergies) Date Reviewed: 05/20/2018 Reviewed by: Matias (Rn) CARLITOS Velazquez - Fully Assessed Reason for Visit: Clinical Update [1735] Cmt: Pain medication Prescriptions as of 05/26/2018 Sig: ACETAMINOPHEN 325 MG TABLET Take 2 tablets by mouth every* DEXAMETHASONE 2 MG TABLET Continue 4mg (2 tablets) in t* OXYCODONE-ACETAMINOPHEN 5 MG-* Take 1-2 tablets by mouth judy* METHOCARBAMOL 500 MG TABLET Take 1 tablet by mouth every * FAMOTIDINE 20 MG TABLET Take 1 tablet by mouth twice * MELATONIN 3 MG TABLET Take 1 tablet by mouth daily * METFORMIN ER 500 MG TABLET,EX* Take 500 mg by mouth daily at* Problem List As Of Date 05/26/2018 Noted Resolved Kidney stones [N20.0] Acid reflux [K21.9] Rectal bleeding [K62.5] INVALID FOR* Anemia [D64.9] INVALID FOR* Meningioma (HCC) [D32.9] INVALID FOR* More... Cerebral edema (HCC) [G93.6] INVALID FOR* More... Encounter Status:Closed by ROCK MANDUJANO on 05/26/18 CASE MANAGEM Observed: 05/20/2018 Status: COMPLETED Source: [place] 10:07 AM [facility] REPOSITORY HNO ID: [id number] Author: Neyda (Rn) CARLITOS Aponte Service: Care Management Author Type: Registered Nurse Type: Care Mgt Progress Note Filed: 05/20/2018 10:11 AM Note Text: CARE MANAGEMENT DISCHARGE NOTE SERVICE DATE: 05/20/2018 SERVICE TIME: 1008 LOS: 2 days Admission Date: 05/18/2018 DISCHARGE ARRANGEMENT (list agency and phone number) Home Provider: N/A Phone: N/A CAREGIVER ASSESSMENT: Caregiver is ready, willing and able to meet the patient's needs as recommended by the inter-professional team? No Caregiver Needed Patient's transition needs and plan for meeting these needs: Plan to return to home at previous level of function Does the patient have an acute stroke diagnosis, or has the patient had a stroke during this admission? No HANDOFF COMMUNICATION: D/C instuctions to be reviewed with pt. by bedside Nurse TRANSPORTATION ARRANGEMENTS: Car - Sister ADDITIONAL CONTACT RESOURCES: N/A Per AM huddle, D/C to home today with no D/C planning needs. SIGNATURE: Neyda Aponte RN PATIENT NAME: Yoly Slaughter DATE: May 20, 2018 TIME: 10:08 AM PAGER/CONTACT #: [phone] ANES POST Observed: 05/20/2018 Status: COMPLETED Source: [place] 6:38 AM [facility] REPOSITORY HNO ID: [id number] Author: Estefania Galvan Service: (none) Author Type: Anesthesiologist Type: Anesthesia PostOp Filed: 05/20/2018 6:39 AM Note Text: POST ANESTHESIA EVALUATION NOTE SERVICE DATE: 05/18/2018 SERVICE TIME: 2114 : 1965 Vitals: 05/19/18199905/19/18213805/20/1813605/20/18 0500 Temp: 36.5 ?C (97.7 ?F) 36.3 ?C (97.4 ?F) 36.4 ?C (97.5 ?F) 36.4 ?C (97.5 ?F) 05/19/18199905/19/18213805/20/1813605/20/18 0500 Arterial BP 1: BP: 144/83 132/68 134/78 148/76 05/19/18199905/19/18213805/20/1813605/20/18 0500 Pulse: 78 73 72 63 05/19/18199905/19/18213805/20/1813605/20/18 0500 Resp: 18 18 18 18 05/19/18199905/19/18213805/20/1813605/20/18 0500 SpO2: 95% 93% 94% 97% Validated Vital Signs: HR: 85; BP: 144/84; RR: 18; SpO2%: 95; Temperature: 36.4 POST ANES STATUS: No apparent anesthetic complications. The patient is appropriately hydrated with stable respiratory and cardiovascular status. Patient has safe and adequate airway control. The patient has appropriate pain relief and no significant post operative nausea or vomiting. The patient has achieved baseline mental status. Intra-Operative Events: No Significant Anesthesia Events Further assessment by Anesthesia Service: None Other Remarks: SIGNATURE: Estefania Galvan MD PATIENT NAME: Yoly Slaughter DATE: May 20, 2018 TIME: 6:39 AM PAGER/CONTACT #: [phone] CNDS Observed: 05/20/2018 Status: COMPLETED Source: [place] 5:06 AM [facility] REPOSITORY HNO ID: [id number] Author: Qing Weeks (Pa) Service: Neurosurgery Author Type: Physician Paving Bed Maker Type: Discharge Summaries Filed: 05/20/2018 11:39 AM Note Text: The [address] [address] or ([phone]) CC-CARE C O N [facility] I [facility] DISCHARGE SUMMARY Patient Name: Yoly Slaughter Account #: Data Unavailable Admission Date: 05/18/2018 Date of Evaluation: 05/20/2018 Time of Evaluation: 11:36 AM Location: [facility] [id number]/[id number] Admission Date: 05/18/2018 Discharge Date: 05/20/2018 Discharged Against Medical Advice? No Attending Physician: Tanja Rizvi M.D., Ph.D. - Office PCP: Justin Dc MD [phone] Reason for Hospitalization: Meningioma Final Diagnoses: Patient Active Hospital Problem List: Meningioma (HCC) (05/03/2018) Cerebral edema (HCC) (05/19/2018) Operations During Hospitalization: Right frontal craniotomy and tumor excision Procedures During Hospitalization: No procedures performed Hospital Course: The patient was electively admitted to the [facility]. After being optimized for surgery by the IMPACT and PACE teams, Yoly Slaughter was identified and brought into the Operating Room by the anesthesia and nursing teams. Prior to surgery the patient was treated with antibiotics and continued with antibiotics postoperatively. The patient underwent a right frontal craniotomy for tumor resection with GETA. The patient tolerated the procedure and was taken to PACU, and then to the hospital surgical floor when PACU criteria was made. The patient was then transferred up to [place] [address]/H060-23 hospital room for postoperative management. Patient was fitted with fitted with sequential compression devices for DVT prophylaxis. The patient was discharged on POD # 2 in stable condition. Complete and comprehensive discharge instructions were provided to the patient as well as necessary prescriptions. The patient had no further questions and was advised to call with any questions, concerns, or problems. Patient's pain was well controlled with Oral Pain Medications. Based upon the appropriate milestones the patient met during the hospital course, patient was discharged to Rapid Recovery- discharged home. Patient was hemodynamically stable postoperatively. Relevant labs included: CBC: Recent Labs 05/17/18 0800 WBC 7.43 HB 16.1 HCT 46.1 PLT 182 MCV 92.4 RDWCV 12.4 COAG: Recent Labs 05/17/18 0800 APTT 27.0 INR <0.9* BMP: Recent Labs 05/17/18 1313 05/17/18 0800 GLUC -- 152* NA -- 138 K -- 4.4 CHLOR -- 100 CO2 -- 24 ANION -- 14 BUN -- 13 CREAT 0.60* 0.73 CHEM: Recent Labs 05/17/18 0800 CA 9.7 HEPATIC: No results for input(s): ALKPHOS, ALT, AST, TBILI, LIPASE in the last 168 hours. URINALYSIS:No results for input(s): PH, SPGR, UGLUC, UBILI, UKET, UHB, UPROT, UROBIL, UWBC, SSA in the last 168 hours. Invalid input(s): NITR CARDIAC: No results for input(s): CKTEST, CKMB, CKMBP, TROPT, PBNP in the last 168 hours. Estimated Creatinine Clearance: 146.5 mL/min (A) (based on SCr of 0.6 mg/dL (A)). Pending results: Pathology Results (surgical pathology) Patient had no signs/symptoms of DVT, so no ultrasound was done during hospital course. MRI of brain were performed during postoperative hospital course on POD # 1 for postoperative evaluation. Advanced Directive Status While in the Hospital: <no information> Emergency Contact While in the Hospital: Extended Emergency Contact Information Primary Emergency Contact: Jamila Melendez Relation: Sister ALLERGIES: ALLERGIES No Known Allergies PAST MEDICAL HISTORY: PAST MEDICAL HISTORY Diagnosis Date - Acid reflux - Inguinal hernia without mention of obstruction or gangrene, unilateral or unspecified, (not specified as recurrent) - Kidney stones PAST SURGICAL HISTORY: PAST SURGICAL HISTORY Procedure Laterality Date - EGD W/O [facility] SPECIMEN W/BX 01-19-13 - LAP REPAIR INTIAL INGUINAL HERNIA 12-23-12 right - LAPAROSCOPIC CHOLEYCYSTECTOMY Cholecystectomy, lap - SIGMOIDOSCOPY FLEX DIAG 01-19-13 poor prep PAST FAMILY HISTORY: FAMILY HISTORY Problem Relation Age of Onset - Diabetes Father s/p amputation - Coronary Artery Disease Father [place] - Heart Father aortic valve replacement PAST SOCIAL HISTORY Social History Marital status: Single Spouse name: Years of education: Number of children: 0 Occupational History Occupation Employer Comment [employer] Social History Main Topics Smoking status: Never Smoker Smokeless tobacco: Never Used Alcohol use: Yes 6.0 oz/week Cans of Beer (12oz): 4 per week Drug use: Yes Frequency: 1.0 time per week Types: Marijuana Sexual activity: No Social History Narrative Lives by himself. Father lives in [place]. Mother lives in [place]. HOME MEDICATIONS: Prior to Admission medications as of 05/19/18 1050 Medication Sig Last Dose Taking metFORMIN ER (GLUCOPHAGE XR) 500 mg 24 hr tablet Take 500 mg by mouth daily at bedtime. Past Week at Unknown time Yes acetaminophen (TYLENOL) 325 mg tablet Take 2 tablets by mouth every 4 hours as needed. dexamethasone (DECADRON) 2 mg tablet Continue 4mg (2 tablets) in the morning and 4mg (2 tablets) in the afternoon for 5 days.Then take 2mg (1 tablet) in the morning and 2mg (1 tablet) in the afternoon until directed otherwise. oxyCODONE-acetaminophen (PERCOCET) 5-325 mg tablet Take 1- 2 tablets by mouth every 4 hours as needed for Pain for up to 7 days. methocarbamol (ROBAXIN) 500 mg tablet Take 1 tablet by mouth every 6 hours as needed. famotidine (PEPCID) 20 mg tablet Take 1 tablet by mouth twice daily. melatonin 3 mg tablet Take 1 tablet by mouth daily at bedtime. Discharge Medications: Your medical reconciliation is as noted below. However do not start any aspirin, plavix, or NSAID (i.e. Ibuprofen/motrin, aleve) medications unless noted below. Take tylenol or physician ordered pain medications for pain. GENERAL INFORMATION ABOUT TAKING MEDICATIONS: Take all medications as directed. Do not skip a dose of medication. If you forget to take your medication, do so as soon as you remember, but do not take a double dose. Do not take any [id number] medications or herbal therapies without consulting your health care provider, or pharmacist. Have a routine for taking your medication: take at the same time each day. Use a pill box to help you remember to take your medication. Keep an updated copy of your medication list with you at all times. Current Discharge Medication List START taking these medications acetaminophen (TYLENOL) 650 mg Take 650 mg by mouth every 4 hours as needed. dexamethasone (DECADRON) 2 mg tablet Continue 4mg (2 tablets) in the morning and 4mg (2 tablets) in the afternoon for 5 days.Then take 2mg (1 tablet) in the morning and 2mg (1 tablet) in the afternoon until directed otherwise. Qty: 60 tablet Refills: 0 oxyCODONE-acetaminophen (PERCOCET) 1-2 tablets Take 1-2 tablets by mouth every 4 hours as needed for Pain. Earliest Fill Date: 05/20/18 Qty: 40 tablet Refills: 0 Associated Diagnoses:Meningioma (HCC); Postoperative pain methocarbamol (ROBAXIN) 500 mg Take 500 mg by mouth every 6 hours as needed. Qty: 90 tablet Refills: 0 famotidine (PEPCID) 20 mg Take 20 mg by mouth twice daily. Qty: 60 tablet Refills: 0 melatonin 3 mg Take 3 mg by mouth daily at bedtime. Qty: 30 tablet Refills: 0 CONTINUE these medications which have NOT CHANGED metFORMIN ER (GLUCOPHAGE XR) 500 mg Take 500 mg by mouth daily at bedtime. Refills: 6 Please remember to discard old medication lists and to update your records with all of your healthcare providers and retail pharmacies. Pain medications are helpful around the time of surgery, but they can cause problems if taken for too long. Your are encouraged to increase the time between taking the pain medication and to take them only when necessary. The long-term use of such substances as opioids (narcotic analgesics), benzodiazepine tranquilizers, and barbiturate sedatives is controversial. There is also the risk of an addictive disorder developing or of relapse occurring in a person with a prior addiction. Drowsiness and impaired concentration may be associated with these medications and may put you in danger. Constipation is the most common side effect, thus stool softeners are necessary while taking narcotic medications. If these drugs are taken during the latter months of , the child will probably be born physically dependent on them. Selling or giving away this medication is against the law and may cause harm or to the person who receives it. Thus you must never give controlled substances to anyone else, even if he or she has the same symptoms as you. Because diverted / stolen opioids are causing an epidemic of deaths in the [place], lost or stolen medications will not be replaced. It is your responsibility to safeguard them. Discharge Objective Exam: 05/19/18 2139 05/20/18 0137 05/20/18 0500 05/20/18 0940 BP: 132/68 134/78 148/76 142/77 Pulse: 73 72 63 87 Resp: Temp: 36.3 ?C (97.4 ?F) 36.4 ?C (97.5 ?F) 36.4 ?C (97.5 ?F) 36.7 ?C (98 ?F) TempSrc: Oral Oral Oral Oral SpO2: 93% 94% 97% 96% Weight: Height: General: A AND O x 3. Appears stated age, well built, in no apparent distress. Psychiatric: Mood and affect: Appropriate. Skin: Incision: clean/dry/intact dressing; +OD periorbital edema CV: Normal heart sounds, rate, rhythm>Tele: normal sinus rhythm Respiratory: lungs CTA bilat Abdomen: Soft and Non-tender Musculoskeletal: Sensory: Normal sensory exam Gait: N/A Muscle strength: UE BICEPS TRICEPS DELTS Crap Shooter R 5/5 5/5 5/5 5/5 L 5/5 5/5 5/5 5/5 ? LE Hip Flex Knee Flex Knee Extend Plantarflex Dorsiflex EHL R 5/5 5/5 5/5 5/5 5/5 5/5 L 5/5 5/5 5/5 5/5 5/5 5/5 ? CRANIAL NERVES: Pupils: OD Right: 3 mm Reactive OS Left: 3 mm Reactive ? II Visual recio: are full to confrontation III, IV, EOM full V Facial sensation normal VII Normal strength VIII Normal bilaterally IX, X Normal, midline palatal rise XI Symmetric shrug XII Tongue midline, mobile Drift: no drift bilaterally Speech: clear and coherent Patient Condition at Discharge: Improved Discharge Disposition: Home/Self Care Information Provided to the Patient: Patient given copy of Discharge Instructions DIET: No restrictions Activity: --Do not lift more than 10 pounds for 6 weeks after leaving the hospital. Lifting restrictions include: lifting with your legs or your own body weight -No bending forward. No straining. -No vigorous activity. Complete activities to tolerance. -Do not try to do too much too early. Use your common sense. Walking is the best activity, and we encourage you to walk every hour while awake. -No driving or operating heavy machinery while taking narcotic (pain) medications. This is for your own safety, and the safety of others. If you drive while taking pain medicine, you can be charged with driving under the influence or DUI. If you are charged with DUI while taking pain medicine, the [facility], and its providers are not to blame. -You may climb steps. Be careful when you are coming down the stairs because you may be off-balance. You may need to rest part of the way if you become tired. Try to arrange your activities so that you do not have to climb up and down stairs several times during the day, especially when you first arrive home. Future Appointments Date Time Provider Department Center 06/03/2018 9:10 AM TANJA ARNETT 06/03/2018 9:10 AM TANJA ARNETT Electronically SIGNED/ DICTATED by Licensed Practitioner: Qing Weeks PA-C May 20, 2018 11:36 AM , [phone] (pager) in the service of Dr. Tanja Rizvi. This note is not finalized until authenticated by the staff physician. CC: Justin Dc MD [address] [place] [address] Whether you are referring from near or far, our new e-[facility] service, , can streamline your communication with our specialists. This new online tool offers you secure access to your patient?s [facility] medical record. You can track your patient?s care in real time, without additional software or hardware other than an internet connection. To establish a account, please call [phone] or e-mail [email or web address]. [facility] is ranked one of the top hospitals in [place] by [employer] World Report (2012). Visit us online at [email or web address] for a complete listing of our services, staff and locations. Confidentiality Note: This message is intended for use only by the individual or entity to which it is addressed and may contain information that is privileged, confidential, and exempt from disclosure under applicable law. If the reader of this message is not the intended recipient or the employee or agent responsible for delivering the message to the intended recipient, you are hereby notified that any dissemination, distribution or copying of this communication is strictly prohibited. If you have received this communication in error, please contact the sender immediately and destroy the material in its entirety, whether electronic or hard copy. 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 To eat what I am supposed to. To make better choices. Health Insurance: [facility] None Health Issues Impacting Discharge Plan: None Last Admission Date: None Is this Within the Past 30 days? N/A Advance Directive: Health Literacy: 1. How often do you need to have someone help you when you read instructions, pamphlets, or other written material from your doctor or pharmacy? Never - 1 2. How confident are you filling out medical forms by yourself? Extremely - 1 If Patient scores > 3 on either question, the following interventions were put into place: Patient did not score > 3 FUNCTIONAL AND COGNITIVE/BEHAVIORAL PRIOR TO ADMISSION: Baseline Mental Status: Alert AND Oriented, Person, Place , Time and Situation Functional Status: Independent Does Patient Currently Receive Any Community Services or Home Care? None Equipment Prior to Admission: Glucometer Has the Patient Been in a Group Home Facility in the Past 30 days? No SOCIAL: Living Arrangement: Home- apartment.. Main level Lives With: Alone Financial Resources: Employed: [employer] Primary Contact: Extended Emergency Contact Information Primary Emergency Contact: Jamila Melendez [place] Relation: Sister Supportive: Yes Other Important Patient Contacts: None Caregiver Assessment: Caregiver is ready, willing and able to meet the patient's needs as recommended by the inter-professional team? No Caregiver Needed Patient's transition needs and plan for meeting these needs: Plan to return to home at previous level of function Does the patient have an acute stroke diagnosis, or has the patient had a stroke during this admission? No Medication Adherence: I am convinced of the importance of my prescription medication: Agree mostly - 0 I worry that my prescription medication will do more harm than good to me Agree mostly - 14 I feel financially burdened by my [id number] expenses for my prescription medication: Disagree completely - 0 Patient is categorized as high risk score > 8: The following interventions are being put into place - pt. states he doesn't understand hy he takes Metformin twice a day.. takes his medicaitions when he remembers Are you interested in bedside delivery of your medications? No Food Concerns: In the Last Month, Have You had Trouble Getting Food? No trouble getting food During the Last Month, Have You Worried Whether Your Food Would Run Out Before You Had Enough Money to Buy More? No Is the Patient Psychosocially Complex? No ASSESSMENT AND PLAN: Medical Needs: None Psychosocial Needs: None FREEDOM OF CHOICE EXPLAINED: N/A POTENTIAL TRANSITION PLANS Home Plan for D/C to home tomorrow with no D/C planning needs. 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 TECHNIQUE: Routine brain MRI protocol without and with contrast including diffusion images. MQ: [id number] Contrast: 16.0 mL Dotarem IV COMPARISON: None. RESULT: Acute Change: There is no evidence of restricted diffusion to suggest an acute infarct. Hemorrhage: No evidence of prior parenchymal hemorrhage on the gradient echo images. Mass Lesion/ Mass Effect: Interval right frontal craniotomy with associated small volume pneumocephalus overlying the right frontal convexity. Gross total resection of the previously seen enhancing extra-axial mass within the right frontal convexity. Minimal enhancement is seen along the surface of the right middle frontal gyrus at the surgical site probably a hilda vessel versus postoperative change. A small to moderate sized subgaleal fluid collection overlies the craniotomy flap measuring 8 x 1 cm in greatest AP and transverse dimensions with caudal extension to the level of the patient's right auricle. Chronic Change: The white matter is within normal limits of signal intensity for age. Parenchyma: No significant volume loss for age. 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 Ventricles: Normal caliber and morphology. Skull Base: Hypothalamic and pituitary region are grossly normal. Craniocervical junction is normal. No significant marrow replacement process. Vasculature: Major intracranial arterial structures, and dural venous sinuses show typical flow void, suggesting patency by spin echo criteria. Other: The visualized paranasal sinuses and mastoid air cells are clear. The orbits and extracranial soft tissues are unremarkable. IMPRESSION: Expected dated postsurgical changes related to right frontal craniectomy with gross total resection of the right frontal convexity meningioma. Developmental Mathematics Instructor: RAVI Transcribe Date/Time: May 19 2018 11:46A Dictated by : TANJA MONREAL DO This examination was interpreted and the report reviewed and electronically signed by: GAIL BENITEZ MD on May 19 2018 1:21PM EST [id number] ALLIED HEALTH Observed: 05/19/2018 Status: COMPLETED Source: [place] 10:21 AM [facility] REPOSITORY HNO ID: [id number] Author: Melany Perez (Tech) Service: Radiology Author Type: Beater Out Leveling Machine Type: Allied Health Filed: 05/19/2018 10:22 AM Note Text: Radiology Service Progress Note PATIENT NAME: Yoly Slaughter DATE OF SERVICE: May 19, 2018 TIME: 10:22 AM PATIENT IDENTITY VERIFICATION COMPLETED USING TWO (2) METHODS: Patient confirmed name verbally, ID Band and Date of . PATIENT GENDER DATA: Male PATIENT RELEVANT IMPLANT DATA REVIEWED: Yes RADIOLOGY DEPARTMENT: MR; Exam(s) Completed: Head: Routine Brain PERIPHERAL IV DATA: Inpatient: see LDA documentation SIGNED BY: Roz Bacon May 19, 2018 10:22 AM NURSING PROG Observed: 05/19/2018 Status: COMPLETED Source: [place] 10:10 AM [facility] REPOSITORY HNO ID: [id number] Author: Shilpa Oliveros) CARLITOS Gordon Service: Radiology Author Type: Registered Nurse Type: Nursing Progress Note Filed: 05/19/2018 10:11 AM Note Text: Radiology Service Progress Note PATIENT NAME: Yoly Slaughter DATE OF SERVICE: May 19, 2018 TIME: 10:11 AM PATIENT WEIGHT: 180 LBS PATIENT IDENTITY VERIFICATION COMPLETED USING TWO (2) METHODS: Patient confirmed name verbally, ID Band and Date of . PATIENT GENDER DATA: Male CONTRAST INDUCED NEPHROPATHY RISK FACTORS: Not applicable CREATININE: Creatinine Date Value Ref Range Status 05/17/2018 0.73 0.73 - 1.22 mg/dL Final 12/30/2012 0.66 (L) 0.70 - 1.40 mg/dL Final Creatinine (POCT) Date Value Ref Range Status 05/17/2018 0.60 (A) 0.7 - 1.4 mg/dL Final eGFR-All Other Races Date Value Ref Range Status 05/17/2018 >60 . Final Comment: eGFR (Estimated GFR) Units of measure: mL/min/1.73 meters squared eGFR is derived from the reexpressed MDRD Study equation using the following parameters: serum creatinine, age, gender and race. The creatinine assay has been calibrated to be traceable to IDMS. An eGFR <60 mL/min/1.73m2 for >3 months is consistent with chronic kidney disease. Refer to KDOQI guidelines for clinical interpretation. In patients with unstable renal function, e.g. those with acute kidney injury, the eGFR may not accurately reflect actual GFR. eGFR-All Other Races (POCT) Date Value Ref Range Status 05/17/2018 >60 mL/min/1.73 m2 Final eGFR- Date Value Ref Range Status 05/17/2018 >60 Final eGFR- (POCT) Date Value Ref Range Status 05/17/2018 >60 mL/min/1.73 m2 Final P.O.C.T. RESULTS: N/A May 19, 2018 TREATMENT: No Hydration needed. ALLERGIES: Reviewed and unchanged CONTRAST ALLERGY: NO. IV SITE: Inpatient - refer to LDA documentation IV SITE APPEARANCE: Clean,Dry and Intact SIGNED BY: Shilpa Gordon RN May 19, 2018 10:11 AM PROGRESS Observed: 05/19/2018 Status: COMPLETED Source: [place] 6:08 AM [facility] REPOSITORY HNO ID: [id number] Author: Qing Peterson) Micky Service: Neurosurgery Author Type: Physician Paving Bed Maker Type: Progress Notes Filed: 05/19/2018 4:32 PM Note Text: Before 8 AM, after 7 PM (1900) and weekends please page [phone]. Between 8 AM and 10 AM please page Yaritza Britt ([phone]) Tumor Team B Inpatient Progress Note Attending: Dr. Tanja Rizvi Location: H063 001/H063-01 POD # 1 S/P: Right frontal craniotomy and tumor excision ASSESSMENT: Patient reports aching pain and swelling at incision site. He is neurologically stable with no new deficits. Patient was updated at bedside and all questions were answered. D/w staff Dr. Rizvi. PLAN: Pain control Continue decadron 4bid (SSI, PPI) treating cerebral edema r/t brain tumor and OR MRI brain WWO tumor protocol Mobilize, OOB for meals RNF pending Planned Date of Discharge: Within 48 hours Discharge Disposition: Home Active Hospital Problems Diagnosis - Meningioma (HCC) Present on admission Treated with Right frontal craniotomy and tumor excision Evaluated with postop MRI - Cerebral edema (HCC) Present on admission R/t brain tumor and OR Treating with decadron 4bid (SSI, PPI) PATIENT CHECK LIST: 1. Out of bed and ambulating: Yes Needs PT or OT Evaluation: No 2. Vascular access necessary: PIV Yes PICC Line: No Central line present? No 3. [place]/drains: Yes Continued need for urinary catheter? D/C Urinary Catheter 4. Nutrition: PO- Yes. 5. Imaging completed: No Pending studies: MRI brain 6. Consults requested: No; Service: NA 7. Infectious Disease - Active infections: N/A - Antibiotics: N/A - Recent cultures: N/A 8. Pain - Is the patient currently reporting any pain? Yes. What is the patient's current pain level on a 0 to 10 rating scale? Pain Score: 7/10 - What is the plan for pain management today 05/19/2018? Continue current Rx 9. Current DVT prophylaxis: Continous sequential compression devices and Encourage ambulation TID . 10. Restraints: None DEEP VEIN THROMBOSIS RISK FACTOR ASSESSMENT VTE RISK CATEGORY: MODERATE RISK SURGERY CONT (I), Older patients (age 40-60) expected LOS Greater than 48 hours, and/or patients with known risk factors for VTE such as heart failure, active infection, severe respiratory disease, obesity, central venous access. INTERVAL HPI (Subjective): REVIEW OF SYSTEMS PAIN ASSESSMENT: CURRENTLY HAVING PAIN; see HPI GENERAL: No weight loss, malaise or fevers HEENT: Positive for headaches, No changes in hearing or vision NECK: Negative for pain and significant neck swelling RESPIRATORY: Negative for cough, hemoptysis, wheezing, COPD, dyspnea or shortness of breath CARDIOVASCULAR: Negative for chest pain, leg swelling, hypertension, CHF or palpitations GI: No nausea, vomiting, or diarrhea MUSCULOSKELETAL: Negative for joint pain or swelling, back pain or muscle pain NEURO: SEE HPI Overnight events noted: none. 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 MEDICATIONS: Current hospital medications: dexamethasone 4 mg tab(s) (DECADRON) 4 mg ORAL BID w MEALS dextrose 40 % 15 g 15 g ORAL PRN glucagon 1 mg injection (GLUCAGEN) 1 mg INTRAMUSCULAR PRN dextrose 50% in water 25 mL syringe 12.5 g INTRAVENOUS PRN insulin lispro injection (rapid acting) (HumaLOG) SUBCUTANEOUS w MEALS acetaminophen 650 mg tab(s) (TYLENOL) 650 mg ORAL q 4 H PRN [MAR Hold due to Transfer] 0.9% NaCl 2-10 mL 2-10 mL INTRAVENOUS q 12 H iv contrast (radiology procedure) INTRAVENOUS DIRECTED PRN oxyCODONE-acetaminophen 5-325 mg 1-2 tablet (PERCOCET) 1-2 tablet ORAL q 4 H PRN morphine 2 mg injection 2 mg INTRAVENOUS q 2 H PRN famotidine 20 mg injection (PEPCID) 20 mg INTRAVENOUS BID ondansetron (PF) 4 mg injection (ZOFRAN) 4 mg INTRAVENOUS q 6 H PRN methocarbamol 500 mg tab(s) (ROBAXIN) 500 mg ORAL q 6 H PRN OBJECTIVE: LABS: CBC: Recent Labs 05/17/18 0800 WBC 7.43 HB 16.1 HCT 46.1 PLT 182 MCV 92.4 RDWCV 12.4 COAG: Recent Labs 05/17/18 0800 APTT 27.0 INR <0.9* BMP: Recent Labs 05/17/18 1313 05/17/18 0800 GLUC -- 152* NA -- 138 K -- 4.4 CHLOR -- 100 CO2 -- 24 ANION -- 14 BUN -- 13 CREAT 0.60* 0.73 CHEM: Recent Labs 05/17/18 0800 CA 9.7 HEPATIC: No results for input(s): ALKPHOS, ALT, AST, TBILI, LIPASE in the last 168 hours. URINALYSIS:No results for input(s): PH, SPGR, UGLUC, UBILI, UKET, UHB, UPROT, UROBIL, UWBC, LEUKEST, SSA in the last 168 hours. Invalid input(s): NITR CARDIAC: No results for input(s): CKTEST, CKMB, CKMBP, TROPT, PBNP in the last 168 hours. Estimated Creatinine Clearance: 146.5 mL/min (A) (based on SCr of 0.6 mg/dL (A)). VITAL SIGNS 24 HOUR REVIEW: 05/19/18 1000 05/19/18 1200 05/19/18 1400 05/19/18 1600 BP: 141/68 126/61 123/64 Pulse: 90 87 86 73 Resp: Temp: 36.4 ?C (97.5 ?F) 36.5 ?C (97.7 ?F) TempSrc: Oral Oral SpO2: 92% 94% 93% 93% Weight: Height: Intake/Output Summary (Last 24 hours) at 05/19/18 1624 Last data filed at 05/19/18 1556 Gross per 24 hour Intake 2571 ml Output 3635 ml Net -1064 ml ALLERGIES: ALLERGIES No Known Allergies General: A AND O x 3. Appears stated age, well built, in no apparent distress. Psychiatric: Mood and affect: Appropriate. Skin: Incision: clean/dry/intact dressing; +OD periorbital edema CV: Normal heart sounds, rate, rhythm>Tele: normal sinus rhythm Respiratory: lungs CTA bilat Abdomen: Soft and Non-tender Musculoskeletal: Sensory: Normal sensory exam Gait: N/A Muscle strength: UE BICEPS TRICEPS DELTS Crap Shooter R 5/5 5/5 5/5 5/5 L 5/5 5/5 5/5 5/5 LE Hip Flex Knee Flex Knee Extend Plantarflex Dorsiflex EHL R 5/5 5/5 5/5 5/5 5/5 5/5 L 5/5 5/5 5/5 5/5 5/5 5/5 CRANIAL NERVES: Pupils: OD Right: 3 mm Reactive OS Left: 3 mm Reactive II Visual recio: are full to confrontation III, IV, EOM full V Facial sensation normal VII Normal strength VIII Normal bilaterally IX, X Normal, midline palatal rise XI Symmetric shrug XII Tongue midline, mobile Drift: no drift bilaterally Speech: clear and coherent SIGNATURE: Qing Weeks PA-C PATIENT NAME: Yoly Slaughter DATE: 05/19/2018 TIME: 6:08 AM PAGER: [phone] NORTEL: After 7 PM (1900) please page the resident from the appropriate team. After 1900, and weekends please page [phone]. BRIEF OP NOT Observed: 05/18/2018 Status: COMPLETED Source: [place] 8:30 PM [facility] REPOSITORY HNO ID: [id number] Author: Christopher Vera MD (Fel) Service: Neurosurgery Author Type: Fellow Type: Brief Op Note Filed: 05/18/2018 8:32 PM Note Text: BRIEF OPERATIVE / PROCEDURE NOTE LOG ID: [id number] SURGERY/PROCEDURE DATE: 05/18/2018 INCISION/PROCEDURE START TIME: 7:22 PM INCISION CLOSE/PROCEDURE END TIME: 8:26 PM SURGEON(S)/PROCEDURALIST(S) AND REFUSE COLLECTOR SUPERVISOR(S): Surgeon(s) and Role: * Tanja Rizvi - Primary * Bernardo Vazquez - Resident - Assisting * Christopher Vera MD (Fel) - Fellow No Additional Staff SURGERY/PROCEDURE(S): Right frontal craniotomy and tumor excision ANESTHESIA: Choice - Anesthesia Consult FINDINGS: Successful resection of tumor ESTIMATED BLOOD LOSS: 25 mls SPECIMENS: Specimen ID Type Site Comments Sent To path #1 Tissue right frontal mass Pathology Routine COMPLICATIONS: None PRE-OP/PRE-PROCEDURE DIAGNOSIS: right frontal meningioma POST-OP/POST-PROCEDURE DIAGNOSIS: Same as above SIGNATURE: Christopher Vera MD PATIENT NAME: Yoly Slaughter DATE: May 18, 2018 TIME: 8:31 PM PAGER/CONTACT #: PROGRESS Observed: 05/18/2018 Status: COMPLETED Source: [place] 6:29 PM [facility] REPOSITORY HNO ID: [id number] Author: Christopher Vera MD (Fel) Service: Neurosurgery Author Type: Fellow Type: Progress Notes Filed: 05/18/2018 9:06 PM Note Text: Neurosurgery POC Note Interval HPI: S/p Right sided craniotomy for resection of tumor Objective: 05/18/18 1226 05/18/182055 BP: 141/98 154/88 Pulse: 80 88 Resp: 16 16 Temp: 36.7 ?C (98.1 ?F) 36.4 ?C (97.5 ?F) TempSrc: Temporal Artery Temporal Artery SpO2: 98% 95% Weight: 82 kg (180 lb 12.4 oz) Height: 163 cm (5' 4.17) EXAM: Alert, Oriented to Person, Place, Time EOMI PERRL Face Symmetric Tongue Midline CLIFFORD No Drift A/P: 52 year old y/o male POD #0 s/p Right sided craniotomy for resection of tumor - admit to SDU - ad tessa -regular diet - pain control - decadron 4 BID - MRI Brain POD1 Staff: MD Christopher Rutledge MD Fellow in Neuro oncology [facility] Pager - [phone] Please page [phone] after 6pm and on weekends OPERATIVE NO Observed: 05/18/2018 Status: COMPLETED Source: [place] 6:24 PM [facility] REPOSITORY HNO ID: [id number] Author: Tanja Rizvi Service: Neurosurgery Author Type: Physician Type: Operative Report Filed: 05/19/2018 9:12 PM Note Text: OPERATIVE/PROCEDURE REPORT LOG ID: [id number] SURGERY/PROCEDURE DATE: 05/18/2018 INCISION/PROCEDURE START TIME: 7:22 PM INCISION CLOSE/PROCEDURE END TIME: 8:26 PM SURGEON(S)/PROCEDURALIST(S) AND REFUSE COLLECTOR SUPERVISOR(S): Surgeon(s) and Role: * Tanja Rizvi - Primary * Bernardo (Sherlyn Vazquez - Resident - Assisting * Christopher Vera MD (Fel) - Fellow No Additional Staff SURGERY/PROCEDURE(S): 1. Right frontal craniotomy for resection of Meningioma, Sinha Grade I 2. Use of Intraoperative Neuronavigation Findings:? Dural based lesion with adequate plane of dissection from cortical surface. Dura excised and DuraGen onlay sewed in place ? Indications: 52 year old M presented to clinic complaining of 2 year history of dull aching headache, MRI demonstrated a Right frontal extra-axial lesion. Risks and benefits were discussed in clinic. Consents were signed. ANESTHESIA: Choice - Anesthesia Consult SURGERY/PROCEDURE DETAILS: The patient was identified in the preoperative holding area and a preoperative huddle was performed to confirm the patient identity, proposed procedure, and site of surgery. The patient was then transported to the operating room and placed under general endotracheal anesthesia by anesthesia team. Lines were then placed by the anesthesia team and a vallecillo was placed. All the dependent portions of the patient were padded and double checked to minimize injury. The patient was positioned supine in a yeboah head concierge. He was registered to the preop MRI. Using the preop MRI, a right frontal curvilinear incision was marked and prepped. Incision was made using #10 blade scalpel on the right side. The dissection was carried down to the level of the bone. Neuro navigation was utilized to plan the craniotomy. Jermain holes were then placed in strategic places. Bony fragments were freed. The underlying dura was then stripped using a #3 [place]. Using a high speed air drill with guard and footplate, the craniotomy flap was then turned. The flap was carefully stripped of the dura and then held on the back table for temporary storage. Hemostasis was achieved. Tumor was localized on the cortical surface upon opening the dura and using intraoperative navigation system. Dura was opened using #15 blade scalpel and metzenbaum scissors. The tumor was dissected from the adjacent cortical margin. The tumor was removed entirely along with a normal dural margin. A specimen was sent to pathology for frozen section. Hemostasis was achieved with Surgicel and irrigation. DuraGen onlay was cut to fit the dural defect and sewed in place with 4-0 neurlon suture. The bone flap was reattached in position using MRI-compatible titanium micro plates and screws. The wound was copiously irrigated and closed in layered fashion with win on the skin surface. A dry dressing was placed over the wound. The patient was extubated from anesthesia and transported to PACU in stable condition. PRE-OP/PRE-PROCEDURE DIAGNOSIS: Brain Tumor POST-OP/POST-PROCEDURE DIAGNOSIS: Brain Tumor ESTIMATED BLOOD LOSS: 25 mls SPECIMENS: Specimen ID Type Site Comments Sent To path #1 Tissue right frontal mass Pathology Routine IMPLANTABLE DEVICES: Implant Name Type Inv. Item Serial No. Rehabilitator Lot No. LRB No. Used PATCH DUREPAIR BOVINE COLLAGEN MATRIX 2X2IN DURAL RESORBABLE DURAPLASTY - [id number] Framework - Tissue PATCH DUREPAIR BOVINE COLLAGEN MATRIX 2X2IN DURAL RESORBABLE DURAPLASTY [employer] NEUROLOGICAL [id number] Right 1 COVER 10MM JERMAIN HOLE LOW PROFILE 3MM SCREW CRANIUM - [id number] Implant COVER 10MM JERMAIN HOLE LOW PROFILE 3MM SCREW CRANIUM N/A STRY/HOWM CRANIOMAXILLOFACIAL N/A Right 1 PLATE GAP 2Y LOW PROFILE TITANIUM 8MM BONE 6 HOLE CRANIOMAXILLOFACIAL - [id number] Plate PLATE GAP 2Y LOW PROFILE TITANIUM 8MM BONE 6 HOLE CRANIOMAXILLOFACIAL N/A STRY/HOWM CRANIOMAXILLOFACIAL N/A Right 2 SCREW 1.5MM 4MM BONE SELF DRILL CROSS PIN CRANIOMAXILLOFACIAL - [id number] Screw SCREW 1.5MM 4MM BONE SELF DRILL CROSS PIN CRANIOMAXILLOFACIAL N/A STRY/HOWM CRANIOMAXILLOFACIAL N/A Right 11 DRAINS: None COMPLICATIONS: None PARTICIPATION IN SURGERY/PROCEDURE: The primary surgeon/proceduralist performed the procedure with assistance. SIGNATURE: Bernardo Vazquez MD PATIENT NAME: Yoly Slaughter DATE: May 18, 2018 TIME: 6:35 PM PAGER/CONTACT #: NURSING PROG Observed: 05/18/2018 Status: COMPLETED Source: [place] 4:45 PM [facility] REPOSITORY HNO ID: [id number] Author: Tiarra Oliveros) CARLITOS Dickey Service: Nursing Author Type: Registered Nurse Type: Nursing Progress Note Filed: 05/18/2018 4:46 PM Note Text: 1645: Page sent to Neurosurgery consult pager, [phone]: Good Afternoon! Yoly Slaughter: Patient experiencing headache pain at 6-7/10. Waiting for surgery with Dr. Rizvi. Can you place an order for pain medication? Thanks! Ext: [phone] - Tiarra NURSING PROG Observed: 05/18/2018 Status: COMPLETED Source: [place] 12:31 PM [facility] REPOSITORY HNO ID: [id number] Author: Bre Oliveros) CARLITOS Osorio Service: (none) Author Type: Registered Nurse Type: Nursing Progress Note Filed: 05/18/2018 12:32 PM Note Text: PRE OP LEARNING ASSESSMENT ? PROCEDURE/SURGERY: SURGERY: logistics READINESS TO LEARN COGNITIVE ABILITY: Alert and oriented MOTIVATION TO LEARN: Interested FAMILY SUPPORT: High - Very involved in pt care PATIENT LEARNS BEST BY: Individual Instruction Verbal Instruction FACTORS AFFECTING LEARNING: None PHYSICAL LIMITATIONS AFFECTING LEARNING: None ? Electronically Signed By: Bre Osorio RN In Department: HOSP MAIN M023 CNCO Observed: 05/18/2018 Status: COMPLETED Source: [place] 12:00 AM [facility] REPOSITORY Letter Text Tanja Rizvi M.D., Ph. D. Damaris Greene Chair for Neuro-Oncology Assoc.Director, Brain Tumor AND Neuro-Oncology Ctr. Assoc. Director, Neurosurgical Oncology [address] [place], [place] [address] P: [phone] F: [phone] May 17, 2018 RE: YOLY SLAUGHTER : 1965 TO WHOM IT MAY CONCERN: This is to certify that Yoly Slaughter is a patient under my care at the [facility]. He has been diagnosed with a brain tumor and is having surgery to remove this tumor on 05/18/18. Yoly Slaughter will be unable to work in any capacity for at least 6 weeks during his post-op recovery. Please contact my office with any questions. Sincerely yours, Tanja Rizvi M.D., Ph. D. SURGICAL PATHOLOGY Observed: 05/18/2018 Status: C Source: [place] 12:00 [facility] REPOSITORY ADDENDUM PRESENT Specimen originated from [facility] Specimen #: [id number] Submitting Physician: TANJA RIZVI ([id number]) FINAL DIAGNOSIS Right frontal lobe, excision - Meningothelial (syncytial) meningioma, WHO Grade I. Bianka 05/23/2018 SYNOPTIC REPORT OF [facility] PATHOLOGIC FINDINGS RIGHT FRONTAL MASS: Specimen Type/Procedure: Resection Specimen Handling: Unfrozen for routine permanent paraffin sections Primary Tumor Site: Cerebral lobes: Frontal lobe Laterality: Right Histologic Type: Meningothelial meningioma Histologic Grade: I Ancillary Studies: Ki-67 immunostain ordered Carlos Wadsworth M.D. (Electronic Signature) SPECIMEN SUBMITTED A: RIGHT FRONTAL MASS ADDENDUM Date Ordered: 05/23/2018 Date Reported: 05/24/2018 Immunohistochemical staining of a tumor (block A4) with antibody to Ki-67 was performed. A labeling index of 9-10% is focally noted. Laboratory Developed Test (LDT) Disclaimer: Positive and negative controls stain appropriately. Performance characteristics of immunohistochemical, immunofluorescent and chromogenic in-situ hybridization tests have been determined by [facility]'s Meir Iglesias [facility] Pathology and Laboratory Medicine [place] ([facility]) in a manner consistent with CLIA requirements. One or more of these tests have not been cleared or approved by the FDA. [facility] is regulated under CLIA as qualified to perform high-complexity testing. These tests are used for clinical purposes. They should not be regarded as investigational or for research. Leif 05/23/2018 Addendum Pathologist: Carlos Wadsworth M.D. Electronic Signature CLINICAL DATA MENINGIOMA GROSS DESCRIPTION A. Received in formalin labeled as right frontal mass consists of one piece of purvis tissue measuring 3.3 x 2.5 x 1.1 cm, and weighing 3.0 grams. One aspect demonstrates pink glistening and unremarkable dura with no adhesions appreciated. The specimen is serially sectioned to reveal purvis glistening cut surface with no hemorrhage or necrosis appreciated. The entire specimen is submitted in cassettes A1-A7. TN/dss 05/19/2018 Gross examination performed at [facility], [address] [place] [address] Date of Report: 05/23/2018 Date of Procedure: 05/18/2018 Date of Receipt: 05/18/2018 Submitted by: TANJA RIZVI ([id number]) Location: [facility] Diagnostic interpretation performed at [facility], [address] [place] [address]. PROGRESS Observed: 05/17/2018 Status: COMPLETED Source: [place] 5:11 PM [facility] REPOSITORY HNO ID: [id number] Author: Tanja Rizvi Service: (none) Author Type: Physician Type: Progress Notes Filed: 05/17/2018 5:13 PM Note Text: Encounter for IC only. Discussed MRI findings with patient and management options. MRI shows a right frontal meningioma with surrounding edema. Discussed observation vs. surgery vs. radiosurgery. Given presence of edema and his relatively young age, I recommended surgical resection of the mass. I discussed with the patient the indications, risks, benefits and alternatives to the planned treatment, and the patient asked to proceed as recommended. I also discussed with the patient the use of surgical assistants. Tanja Rizvi MD PhD MRI BRAIN LOCAL W Observed: 05/17/2018 Status: F Source: [place] IVCON 1:38 PM [facility] REPOSITORY * * *Final Report* * * DATE OF EXAM: May 17 2018 1:38PM QBM 0289 - MRI BRAIN LOCAL W IVCON / PROCEDURE REASON: Benign neoplasm of meninges, unspecified * * * * Physician Interpretation * * * * EXAMINATION: MRI BRAIN LOCAL W IVCON CLINICAL HISTORY: Benign neoplasm of meninges, unspecified TECHNIQUE: Localization protocol with intravenous contrast. MQ: [id number] Contrast: 16 mL Dotarem IV COMPARISON: None. RESULT: Scalp fiducials are present. There is an extra-axial dural based mass with enhancing dural tail overlying the right frontal convexity with minimal mass effect on the right middle frontal gyrus, unchanged since 03/14/2018, measuring 2.2 x 1.3 cm in maximum axial dimensions. No other enhancing intracranial mass lesions are identified. There is a developmental venous anomaly in the posterior right frontal lobe. IMPRESSION: Localization study demonstrating stable dural based mass over the right frontal convexity when compared to 03/14/2018, likely meningioma. Developmental Mathematics Instructor: PSCDiego Transcribe Date/Time: May 17 2018 1:54P Dictated by : TIARRA JESUS MD This examination was interpreted and the report reviewed and electronically signed by: TIARRA JESUS MD on May 17 2018 1:59PM EST [id number] PROGRESS Observed: 05/17/2018 Status: COMPLETED Source: [place] 1:28 PM [facility] REPOSITORY HNO ID: [id number] Author: Arcelia Underwood) Suri Service: Radiology Author Type: Beater Out Leveling Machine Type: Progress Notes Filed: 05/17/2018 1:57 PM Note Text: Radiology Service Progress Note PATIENT NAME: Yoly Slaughter DATE OF SERVICE: May 17, 2018 TIME: 1:29 PM PATIENT IDENTITY VERIFICATION COMPLETED USING TWO (2) METHODS: Patient confirmed name verbally and ID band matches.. PATIENT GENDER DATA: Male PATIENT RELEVANT IMPLANT DATA REVIEWED: Yes RADIOLOGY DEPARTMENT: MR; Exam(s) Completed: Head: Localization PERIPHERAL IV DATA: Site assessment: Clean,Dry and Intact, Site disposition Discontinued SIGNED BY: Arcelia Mccord dials inspector May 17, 2018 1:29 PM PROGRESS Observed: 05/17/2018 Status: COMPLETED Source: [place] 12:57 PM [facility] REPOSITORY HNO ID: [id number] Author: Amanda Ha RN Service: Radiology Author Type: Registered Nurse Type: Progress Notes Filed: 05/17/2018 1:13 PM Note Text: Radiology Service Progress Note PATIENT NAME: Yoly Slaughter DATE OF SERVICE: May 17, 2018 TIME: 12:57 PM PATIENT WEIGHT: 181 LBS PATIENT IDENTITY VERIFICATION COMPLETED USING TWO (2) METHODS: Patient confirmed name verbally and ID band matches.. PATIENT GENDER DATA: Male CONTRAST INDUCED NEPHROPATHY RISK FACTORS: Diabetic: Yes. Current medication(s): Metformin. Patient currently has insulin pump?: No. CREATININE: Creatinine Date Value Ref Range Status 12/30/2012 0.66 (L) 0.70 - 1.40 mg/dL Final eGFR-All Other Races Date Value Ref Range Status 12/30/2012 >60 . Final Comment: eGFR (Estimated GFR) Units of measure: mL/min/1.73 meters squared eGFR is derived from the reexpressed MDRD Study equation using the following parameters: serum creatinine, age, gender and race. The creatinine assay has been calibrated to be traceable to IDMS. An eGFR <60 mL/min/1.73m2 for >3 months is consistent with chronic kidney disease. Refer to KDOQI guidelines for clinical interpretation. eGFR- Date Value Ref Range Status 12/30/2012 >60 Final P.O.C.T. RESULTS: POC done: Yes, See Lab Tab May 17, 2018 TREATMENT: No Hydration needed. ALLERGIES: Reviewed and unchanged CONTRAST ALLERGY: NO. IV SITE: Ambulatory: A peripheral IV was started in the Right antecubital site with a Angio cath: 22 gauge. and A Saline lock was inserted per protocol IV SITE APPEARANCE: Clean,Dry and Intact SIGNED BY: Amanda Ha RN May 17, 2018 12:57 PM PROGRESS Observed: 05/17/2018 Status: COMPLETED Source: [place] 12:27 PM [facility] [place] REPOSITORY [facility] ID: [id number] Author: Rock Oliveros) CARLITOS Mandujano Service: (none) Author Type: Registered Nurse Type: Progress Notes Filed: 05/17/2018 12:28 PM Note Text: Patient education Worksheet- Neurosurgery Name:Yoly Slaughter Date: 05/17/18 Patient readiness to learn Motivation to learn: Eager Support: High Cognitive ability: Alert and oriented Influencing factors: None Physical limitations: None Learning preferences Patient learns best by: Indiviual instruction using multiple methods Instructions provided to: Patient Learning response Discipline: Nursing Diagnosis: Brain Tumor Procedure/Surgery: craniotomy for tumor resection Content Survival Skills: Yes Lifestyle Changes No Health Promotion: No Patient evaluation: Verbalizes understanding Follow up plan: Complete No need for follow up The following materials were reviewed with the patient and family at this visit and were given in written form to the patient in a folder at a previous visit. -Booklet, Pamphlet and Your Surgical Guide -[facility] Post-operative Instructions Craniotomy/Biopsy -[facility] Teaching sheet for Deep Vein Thrombosis (DVT) -FAQ's about Surgical Site Infections Fiducials #9 placed to head in usual array for stereo MRI. IRB#[id number] Genetic and Molecular Analysis of Tumors of the Central Nervous System and their Coverings. A copy of the consent form was given to patient on 05/17/18. Discussed with patient and family all risks, benefits, and alternatives with good understanding. Questions concerning enrollment were answered. Patient has read the informed consent. Patient states understanding and has agreed to participate on 05/17/18 at 1200. Informed consent obtained and copy given to the patient. Rock Mandujano RN, BSN #[id number] CNNURSE Observed: 05/17/2018 Status: COMPLETED Source: [place] 11:30 AM [facility] REPOSITORY Nurse Visit ([facility]) YOLY SLAUGHTER Jay ([id number]) 1965 M Date Time Provider Department 05/17/18 11:30 AM ROCK MANDUJANO (CARLITOS) [facility] During your visit today, we recorded the following information about you: Natalya Angel 05/17/2018 11:33 AM Signed Reviewed and confirmed with patient that there were no changes in the the nursing assessment and vitals that were completed on May 17, 2018 during previous provider appointment. Natalya Mandujano RN, RN 05/17/2018 12:28 PM Signed Patient education Worksheet- Neurosurgery Name:Yoly Slaughter Date: 05/17/18 Patient readiness to learn Motivation to learn: Eager Support: High Cognitive ability: Alert and oriented Influencing factors: None Physical limitations: None Learning preferences Patient learns best by: Indiviual instruction using multiple methods Instructions provided to: Patient Learning response Discipline: Nursing Diagnosis: Brain Tumor Procedure/Surgery: craniotomy for tumor resection Content Survival Skills: Yes Lifestyle Changes No Health Promotion: No Patient evaluation: Verbalizes understanding Follow up plan: Complete No need for follow up The following materials were reviewed with the patient and family at this visit and were given in written form to the patient in a folder at a previous visit. -Booklet, Pamphlet and Your Surgical Guide -[facility] Post-operative Instructions Craniotomy/Biopsy -[facility] Teaching sheet for Deep Vein Thrombosis (DVT) -FAQ's about Surgical Site Infections Fiducials #9 placed to head in usual array for stereo MRI. IRB#[id number] Genetic and Molecular Analysis of Tumors of the Central Nervous System and their Coverings. A copy of the consent form was given to patient on 05/17/18. Discussed with patient and family all risks, benefits, and alternatives with good understanding. Questions concerning enrollment were answered. Patient has read the informed consent. Patient states understanding and has agreed to participate on 05/17/18 at 1200. Informed consent obtained and copy given to the patient. Rock Mandujano RN, BSN #[id number] Referring Provider: TANJA RIZVI [[id number]] Allergies As of Date: 05/17/2018 (No Known Allergies) Date Reviewed: 05/17/2018 Reviewed by: Natalya Angel - Fully Assessed Reason for Visit: Pre-Op Teaching [134] Primary Visit Diagnosis:Meningioma (HCC) [D32.9] Prescriptions as of 05/17/2018 Sig: METFORMIN ER 500 MG TABLET,EX* Take 500 mg by mouth daily at* Problem List As Of Date 05/17/2018 Noted Resolved Kidney stones [N20.0] Acid reflux [K21.9] Rectal bleeding [K62.5] INVALID FOR* Anemia [D64.9] INVALID FOR* Meningioma (HCC) [D32.9] INVALID FOR* Visit Notes: >> Natalya Myers May 17, 2018 11:32 AM Status: Signed Reviewed and confirmed with patient that there were no changes in the the nursing assessment and vitals that were completed on May 17, 2018 during previous provider appointment. Natalya Angel Encounter Status:Closed by ROCK MANDUJANO on 05/17/18 CNOV Observed: 05/17/2018 Status: COMPLETED Source: [place] 11:00 AM [facility] REPOSITORY Office Visit ([facility]) YOLY SLAUGHTER ([id number]) 1965 M Date Time Provider Department 05/17/18 11:00 AM TANJA RIZVI [facility] During your visit today, we recorded the following information about you: Temperature Respiration Blood pressure Weight 98.1 degrees 18/minute 138/75 82.3 kg Natalya Angel 05/17/2018 11:26 AM Signed Additional intake questions: Has the patient had nausea, vomiting, diarrhea, constipation, fatigue for > 1 week? Fatigue, Yes, MD Notified Does the patient have a decreased appetite? No Does patient want to see a Police Guard? No (yes to any of above refer patient to schedulers for dietitian appointment) ) Does patient have any new or increased numbness or tingling of extremities? No Is patient interested in fertility information? No Does patient need any prescription refills? No Electronically Signed By: Natalya Rizvi MD PhD 05/17/2018 5:13 PM Addendum Encounter for IC only. Discussed MRI findings with patient and management options. MRI shows a right frontal meningioma with surrounding edema. Discussed observation vs. surgery vs. radiosurgery. Given presence of edema and his relatively young age, I recommended surgical resection of the mass. I discussed with the patient the indications, risks, benefits and alternatives to the planned treatment, and the patient asked to proceed as recommended. I also discussed with the patient the use of surgical assistants. Tanja Rizvi MD PhD Referring Provider: TANJA RIZVI [[id number]] Allergies As of Date: 05/17/2018 (No Known Allergies) Date Reviewed: 05/17/2018 Reviewed by: Amanda Oliveros) CARLITOS Ha - Fully Assessed Reason for Visit: Pre-Op Exam [87] Primary Visit Diagnosis:Meningioma (HCC) [D32.9] Prescriptions as of 05/17/2018 Sig: METFORMIN ER 500 MG TABLET,EX* Take 500 mg by mouth daily at* Problem List As Of Date 05/17/2018 Noted Resolved Kidney stones [N20.0] Acid reflux [K21.9] Rectal bleeding [K62.5] INVALID FOR* Anemia [D64.9] INVALID FOR* Meningioma (HCC) [D32.9] INVALID FOR* Visit Notes: >> Natalya Angel Tue May 17, 2018 11:24 AM Status: Signed Additional intake questions: Has the patient had nausea, vomiting, diarrhea, constipation, fatigue for > 1 week? Fatigue, Yes, MD Notified Does the patient have a decreased appetite? No Does patient want to see a Police Guard? No (yes to any of above refer patient to schedulers for dietitian appointment) ) Does patient have any new or increased numbness or tingling of extremities? No Is patient interested in fertility information? No Does patient need any prescription refills? No Electronically Signed By: Natalyajohnson Angel Encounter Status:Closed by BELKYS JONES, TANJA PHD on 05/17/18 PROGRESS Observed: 05/17/2018 Status: COMPLETED Source: [place] 10:04 AM [facility] REPOSITORY O ID: [id number] Author: Chau Akins RN Service: (none) Author Type: (none) Type: Progress Notes Filed: 05/17/2018 10:29 AM Note Text: ANESTHESIA PRE-OPERATIVE ASSESSMENT (PACE) SERVICE DATE: 05/17/2018 SERVICE TIME: 1008 ASSESSMENT AND PLAN: Yoly Slaughter is a 52 year old male scheduled for CRANIECTOMY, TREPHINATION, BONE FLAP CRANIOTOMY / EXCISE SUPRATENTORIAL MENINGIOMA STEREOTACTIC COMPUTER-ASSISTED NAVIGATIONAL PROCEDURE INTRADURAL per Surgery Request Case in [facility] on 05-18-2018. 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- had follow up imaging, bronch, biopsy for lung nodules; no known diagnosis, Is not taking any steroids or using an inhaler; some concern for sarcoidosis-(as per impact note) ongoing follow up with pulmonary [facility] noted liver dysfunction- patient denies, prior epic noted indicate elevated lft 2008 from otc pain relievers for headaches- lft 2012 wnl, hep panel done [facility] indicated drug use- does smoke marijuana ; last time he used crack was several months ago per patient report patient denies OSA_ states he has a hard time falling asleep, is not using a CPAP machine at home [facility]: 3 FC: 2 METS: Climb a flight of stairs or walk up a hill (5.50 METs) Patient WILL accept blood products. BLOOD WORK/PRODUCTS ORDERED: Type and Screen , Con ABO HISTORY OF CHRONIC PAIN: No PAIN MANAGEMENT OPTIONS: Routine/PRN IV and Final pain management plan will be discussed on the day of surgery. ANESTHETIC OPTIONS: General and Final anesthesia management options will be discussed on day of surgery. PRE-OP PLAN ORDERED: Diabetes orders Patient Instructed: ? No solid food or non-clear liquids after midnight. Clear liquids allowed until two hours before scheduled arrival. ? Patient instructed to take the following medications with a sip of water: zantac Vital Signs: BP 129/80 Pulse 69 Ht 163.2 cm (5' 4.25) Wt 81.6 kg (180 lb) SpO2 97% BMI 30.66 kg/m? BMI 30.66 kg/(m2) Vital signs completed by: IMPACT Weight acquired: per HANDP. Height acquired: per HANDP Airway Exam: MOUTH OPENING/TMJ: Full jaw ROM MICROGNATHIA/OVERBITE: No MALLAMPATI SCORE is CLASS I UPPER LIP BITE TEST: Class I - Lower incisors can bite the upper lip above the emma line DENTITION: Edentulous/dentures THYROMENTAL DIST: WNL SHORT NECK: No NECK CIRCUMFERENCE >40 cm: Appears < than 40 CM NECK FLEX: Full ROM NECK EXTENSION: Full ROM AIRWAY HISTORY: No abnormal airway history ARKS AIRWAY DETAIL: N/A DATA: EKG READING: EKG not indicated OTHER TESTS: N/A Lab Value Units Date High Low HB 16.1 g/dL 05/17/2018 17.0 13.0 HCT 46.1 % 05/17/2018 51.0 39.0 WBC 7.43 k/uL 05/17/2018 11.00 3.70 PLT 182 k/uL 05/17/2018 400 150 NA No results within date range. K No results within date range. GLUC No results within date range. BUN No results within date range. CREAT No results within date range. PTSEC 9.8 sec 05/17/2018 13.0 9.7 INR <0.9 no uni* 05/17/2018 1.3 0.9 APTT 27.0 sec 05/17/2018 32.4 23.0 ALT No results within date range. AST No results within date range. TBILI No results within date range. TSH No results within date range. Lab Value Units Date High Low HCGQT No results within date range. UHCG No results within date range. HCG, BODY* No results within date range. ABORHD No results within date range. ABSCREEN No results within date range. HBA1C: Hemoglobin A1C (%) Date Value 12/30/2012 5.4 ) Patient accompanied by self Case Discussed with Dr Feliciano OPTIMIZATION STATUS: Patient optimization pending Labs IMPACT SIGNATURE: Chau Akins RN PATIENT NAME: Yoly Slaughter DATE: May 17, 2018 TIME: 10:04 AM PAGER/CONTACT #: [email or web address] Observed: 05/17/2018 Status: COMPLETED Source: [place] 10:00 AM [facility] REPOSITORY Office Visit (PSSCMN) YOLY SLAUGHTER ([id number]) 1965 M Date Time Provider Department 05/17/18 10:00 AM [facility] During your visit today, we recorded the following information about you: Pulse Blood pressure Weight Height 69/minute 129/80 81.6 kg 1.632 m Chau Akins RN 05/17/2018 10:29 AM Addendum ANESTHESIA PRE-OPERATIVE ASSESSMENT (PACE) SERVICE DATE: 05/17/2018 SERVICE TIME: 1008 ASSESSMENT AND PLAN: Yoly Slaughter is a 52 year old male scheduled for CRANIECTOMY, TREPHINATION, BONE FLAP CRANIOTOMY / EXCISE SUPRATENTORIAL MENINGIOMA 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- had follow up imaging, bronch, biopsy for lung nodules; no known diagnosis, Is not taking any steroids or using an inhaler; some concern for sarcoidosis-(as per impact note) ongoing follow up with pulmonary [facility] noted liver dysfunction- patient denies, prior epic noted indicate elevated lft 2008 from otc pain relievers for headaches- lft 2012 wnl, hep panel done [facility] indicated drug use- does smoke marijuana ; last time he used crack was several months ago per patient report patient denies OSA_ states he has a hard time falling asleep, is not using a CPAP machine at home [facility]: 3 FC: 2 METS: Climb a flight of stairs or walk up a hill (5.50 METs) Patient WILL accept blood products. BLOOD WORK/PRODUCTS ORDERED: Type and Screen , Con ABO HISTORY OF CHRONIC PAIN: No PAIN MANAGEMENT OPTIONS: Routine/PRN IV and Final pain management plan will be discussed on the day of surgery. ANESTHETIC OPTIONS: General and Final anesthesia management options will be discussed on day of surgery. PRE-OP PLAN ORDERED: Diabetes orders Patient Instructed: ? No solid food or non-clear liquids after midnight. Clear liquids allowed until two hours before scheduled arrival. ? Patient instructed to take the following medications with a sip of water: zantac Vital Signs: BP 129/80 Pulse 69 Ht 163.2 cm (5' 4.25) Wt 81.6 kg (180 lb) SpO2 97% BMI 30.66 kg/m? BMI 30.66 kg/(m2) Vital signs completed by: GOGO Weight acquired: per HANDP. Height acquired: per HANDP Airway Exam: MOUTH OPENING/TMJ: Full jaw ROM MICROGNATHIA/OVERBITE: No MALLAMPATI SCORE is CLASS I UPPER LIP BITE TEST: Class I - Lower incisors can bite the upper lip above the emma line DENTITION: Edentulous/dentures THYROMENTAL DIST: WNL SHORT NECK: No NECK CIRCUMFERENCE >40 cm: Appears < than 40 CM NECK FLEX: Full ROM NECK EXTENSION: Full ROM AIRWAY HISTORY: No abnormal airway history ARKS AIRWAY DETAIL: N/A DATA: EKG READING: EKG not indicated OTHER TESTS: N/A Lab Value Units Date High Low HB 16.1 g/dL 05/17/2018 17.0 13.0 HCT 46.1 % 05/17/2018 51.0 39.0 WBC 7.43 k/uL 05/17/2018 11.00 3.70 PLT 182 k/uL 05/17/2018 400 150 NA No results within date range. K No results within date range. GLUC No results within date range. BUN No results within date range. CREAT No results within date range. PTSEC 9.8 sec 05/17/2018 13.0 9.7 INR <0.9 no uni* 05/17/2018 1.3 0.9 APTT 27.0 sec 05/17/2018 32.4 23.0 ALT No results within date range. AST No results within date range. TBILI No results within date range. TSH No results within date range. Lab Value Units Date High Low HCGQT No results within date range. UHCG No results within date range. HCG, BODY* No results within date range. ABORHD No results within date range. ABSCREEN No results within date range. HBA1C: Hemoglobin A1C (%) Date Value 12/30/2012 5.4 ) Patient accompanied by self Case Discussed with Dr eFliciano OPTIMIZATION STATUS: Patient optimization pending Labs IMPACT SIGNATURE: Chau Akins RN PATIENT NAME: Yoly Slaughter DATE: May 17, 2018 TIME: 10:04 AM PAGER/CONTACT #: Referring Provider: TANJA RIZVI [[id number]] Allergies As of Date: 05/17/2018 (No Known Allergies) Date Reviewed: 05/17/2018 Reviewed by: Naomie Bowers LPN - Fully Assessed Primary Visit Diagnosis:Pre-op evaluation [Z01.818] Prescriptions as of 05/17/2018 Sig: METFORMIN ER 500 MG TABLET,EX* Take 500 mg by mouth daily at* Problem List As Of Date 05/17/2018 Noted Resolved Kidney stones [N20.0] Acid reflux [K21.9] Rectal bleeding [K62.5] INVALID FOR* Anemia [D64.9] INVALID FOR* Meningioma (HCC) [D32.9] INVALID FOR* Encounter Status:Closed by CHAU AKINS RN on 05/17/18 Chart Close Cosign Required by: Mamadou Feliciano[] HISTORY PHYSICAL Observed: 05/17/2018 Status: COMPLETED Source: [place] 9:22 AM [facility] REPOSITORY HNO ID: [id number] Author: Yessi Chou V Service: (none) Author Type: Physician Type: HANDP Filed: 05/17/2018 9:38 AM Note Text: HISTORY AND PHYSICAL EXAMINATION (IMPACT) SERVICE DATE: 05/17/2018 SERVICE TIME: 9:22 AM PRIMARY CARE PHYSICIAN: Justin Dc MD CHIEF COMPLAINT/HISTORY OF PRESENT ILLNESS: Mr. Slaughter is a 52 year old male referred to me for preoperative evaluation. My final recommendations will be communicated back to the requesting physician/surgeon by the way of the shared medical record. Referring Surgeon: Dr. Rizvi Date of Surgery: 05/18/2018 Planned Surgery/Procedure: CRANIECTOMY, TREPHINATION Indication for Planned Surgery / Procedure: The patient presents for surgical treatment of meningioma. From Dr. Rizvi's notes: He states that he has bilateral tinnitus and occasional decreased hearing in his left ear since the last 2 months. He also has episodes of sudden loss of strength in both the upper and lower limbs and extreme fatigue associated with nausea/vomiting. He has had 2-3 such episodes in the last 2 months. He also endorses a baseline dull aching headache since the last 2 years. The patient had some unstable gait in January 2018 and then had another event when he had vertigo and loss of muscle function. He had an MRI after one of the events and for assessment of hearing loss. He was referred for assessment of treatment of brain tumor. Other medical problems: Diabetes--treated with metformin. The patient reports blood sugars about 140-160. He takes metformin only intermittently Lung nodules--he has had FU imaging for these and had bronchoscopy and Bx in the past. There was some concern about sarcoidosis Patient is Able to Perform the Following Physical Activity: Climb a flight of stairs or walk up a hill (5.50 METs) Patient's functional class is II based on self-reported physical activity. Significant Anesthesia Considerations: None. PAST MEDICAL/SURGICAL/FAMILY/SOCIAL HISTORY PAST MEDICAL HISTORY Diagnosis Date - Acid reflux - Inguinal hernia without mention of obstruction or gangrene, unilateral or unspecified, (not specified as recurrent) - Kidney stones PAST SURGICAL HISTORY Procedure Laterality Date - EGD W/O BRSH SPECIMEN W/BX 01-19-13 - LAP REPAIR INTIAL INGUINAL HERNIA 12-23-12 right - LAPAROSCOPIC CHOLEYCYSTECTOMY Cholecystectomy, lap - SIGMOIDOSCOPY FLEX DIAG 01-19-13 poor prep FAMILY HISTORY Problem Relation Age of Onset - Diabetes Father s/p amputation - Coronary Artery Disease Father [place] - Heart Father aortic valve replacement SOCIAL HISTORYSocial History Marital status: Single Spouse name: Years of education: Number of children: 0 Occupational History Occupation Employer Comment [employer] Social History Main Topics Smoking status: Never Smoker Smokeless tobacco: Never Used Alcohol use: Yes 6.0 oz/week Cans of Beer (12oz): 4 per week Drug use: Yes Frequency: 1.0 time per week Types: Marijuana Sexual activity: No Social History Narrative Lives by himself. Father lives in [place]. Mother lives in [place]. MEDICATIONS/ALLERGIES Current Outpatient Prescriptions: metFORMIN ER (GLUCOPHAGE XR) 500 mg 24 hr tablet Take 500 mg by mouth daily at bedtime. Disp: Rfl: 6 No current facility-administered medications for this visit. ALLERGIES No Known Allergies REVIEW OF SYSTEMS General: No weight loss, malaise or fevers. Neuro: See HPI, no Sz or strokes Respiratory: Hx lung nodules. No known diagnosis; concern about sarcoid Cardiovascular: No history of HTN requiring medication, no history of angina, CHF, [place], cardiac surgery or stents. Denies rest pain, gangrene or revascularization/amputation for PVD. No history of cardiovascular symptoms or problems. GI: No history of GI symptoms or problems. No history of esophageal varices, recent ascites, or ETOH greater than 2 drinks per day. : No history of UTI in past 6 weeks. No history of renal failure. Not currently on or requiring dialysis. No history of symptoms or problems. Endocrine: Diabetes Mellitus on oral agent Hematology: No history of bleeding or clotting disorder. No history of hematological symptoms or problems. Oncology: No history of CA metastasis, chemo within 30 days, or radiotherapy within 90 days. No history of oncological symptoms or problems. Psych: No history of psychiatric symptoms or problems. Skin: Negative for lesions, rash, and itching. PHYSICAL EXAM VITALS: BP 129/80 Pulse 69 Temp (Src) 98.4 (Oral) Ht 5' 4.252 (1.63m) Wt 180 lb (81.6kg) SpO2 97% BMI 30.65 kg/(m2). General: Alert and oriented Skin: Normal color, no rash, no lesions. HEENT: EOM, pupils equal, round and reactive. Cardiovascular: Normal S1 AND S2, no rubs, murmurs or gallops. No JVD. Pulse regular. Lungs: Normal breath sounds, no wheezes or crackles. Abdomen: Soft, non-tender, no rigidity. Extremities: No deformity, no edema or tenderness, no joint swelling or clubbing. Neurological: Normal cognition and motor skills. Pulses: Carotid and radial pulses normal +2. ASSESSMENT Mr. Slaughter is a 52 year old male referred to me for preoperative evaluation. Patient has the following medical comorbidities which might affect the perioperative course: Diabetes--treated with metformin. The patient reports blood sugars about 140-160. He takes metformin only intermittently Lung nodules--he has had FU imaging for these and had bronchoscopy and Bx in the past. There was some concern about sarcoidosis. He is not getting any treatment at this time. He is going to have FU with a ems helicopter pilot Patient's RCRI (Revised Cardiac Risk Index: CAD/CHF/Stroke or TIA/SCr>2/DM on Insulin/High Risk Surgery) score is 0 and is at low risk for major adverse cardiac events in the perioperative period. Diagnostic tests reviewed for today's visit: PENDING PLAN/RECOMMENDATIONS CARDIAC: Patient is at optimal cardiac condition for scheduled surgery / procedure. PULMONARY: Patient is at increased risk for postoperative pulmonary complications. Suggest the following in the post-operative period: Aggressive bronchopulmonary hygiene and Early ambulation He is not on any inhalers or medications for his lungs Patient is optimally prepared for surgery. Patient Instructions: As per patient instructions section. I have discussed the above recommendations with the patient in detail, in tiffanie and lay terms, and provided a written summary of instructions as needed. We have discussed that no surgery is without risk, but that the goal of preoperative assessment is to optimize that risk, and that was clearly understood by the patient. I have given ample opportunity for the patient to ask questions, and answered all questions to their stated satisfaction. SIGNATURE: Yessi Chou MD PATIENT NAME: Yoly Slaughter DATE: May 17, 2018 TIME: 9:22 AM PROGRESS Observed: 05/17/2018 Status: COMPLETED Source: [place] 8:58 AM [facility] REPOSITORY HNO ID: [id number] Author: Naomie Bowers LPN Service: (none) Author Type: (none) Type: Progress Notes Filed: 05/17/2018 9:38 AM Note Text: Yoly Slaughter is a 52 year old male here today for visit in [facility] Referring Surgeon: Dr. Rizvi Date of Surgery: 05/18/2018 Planned Surgery/Procedure: CRANIECTOMY, TREPHINATION Allergies have been reviewed and verified. They include the following: Patient has no known allergies. Social History Substance Use Topics - Smoking status: Never Smoker - Smokeless tobacco: Never Used - Alcohol use 6.0 oz/week 4 Cans of Beer (12oz) per week Medications reviewed and updated: Yes Naomie Bowers LPN CNOV Observed: 05/17/2018 Status: COMPLETED Source: [place] 8:45 AM [facility] REPOSITORY Office Visit (IMPAMN) YOLY SLAUGHTER ([id number]) 1965 M Date Time Provider Department 05/17/18 8:45 AM YESSI CHOU During your visit today, we recorded the following information about you: Temperature Pulse Blood pressure Weight 98.4 degrees 69/minute 129/80 81.6 kg Height 1.632 m Naomie Bowers LPN 05/17/2018 9:38 AM Signed Yoly Slaughter is a 52 year old male here today for visit in [facility] Referring Surgeon: Dr. Rizvi Date of Surgery: 05/18/2018 Planned Surgery/Procedure: CRANIECTOMY, TREPHINATION Allergies have been reviewed and verified. They include the following: Patient has no known allergies. Social History Substance Use Topics - Smoking status: Never Smoker - Smokeless tobacco: Never Used - Alcohol use 6.0 oz/week 4 Cans of Beer (12oz) per week Medications reviewed and updated: Yes Naomie Chou MD 05/17/2018 9:38 AM Signed HISTORY AND PHYSICAL EXAMINATION (IMPACT) SERVICE DATE: 05/17/2018 SERVICE TIME: 9:22 AM PRIMARY CARE PHYSICIAN: Justin Dc MD CHIEF COMPLAINT/HISTORY OF PRESENT ILLNESS: Mr. Slaughter is a 52 year old male referred to me for preoperative evaluation. My final recommendations will be communicated back to the requesting physician/surgeon by the way of the shared medical record. Referring Surgeon: Dr. Rizvi Date of Surgery: 05/18/2018 Planned Surgery/Procedure: CRANIECTOMY, TREPHINATION Indication for Planned Surgery / Procedure: The patient presents for surgical treatment of meningioma. From Dr. Rizvi's notes: He states that he has bilateral tinnitus and occasional decreased hearing in his left ear since the last 2 months. He also has episodes of sudden loss of strength in both the upper and lower limbs and extreme fatigue associated with nausea/vomiting. He has had 2-3 such episodes in the last 2 months. He also endorses a baseline dull aching headache since the last 2 years. The patient had some unstable gait in January 2018 and then had another event when he had vertigo and loss of muscle function. He had an MRI after one of the events and for assessment of hearing loss. He was referred for assessment of treatment of brain tumor. Other medical problems: Diabetes--treated with metformin. The patient reports blood sugars about 140-160. He takes metformin only intermittently Lung nodules--he has had FU imaging for these and had bronchoscopy and Bx in the past. There was some concern about sarcoidosis Patient is Able to Perform the Following Physical Activity: Climb a flight of stairs or walk up a hill (5.50 METs) Patient's functional class is II based on self-reported physical activity. Significant Anesthesia Considerations: None. PAST MEDICAL/SURGICAL/FAMILY/SOCIAL HISTORY PAST MEDICAL HISTORY Diagnosis Date - Acid reflux - Inguinal hernia without mention of obstruction or gangrene, unilateral or unspecified, (not specified as recurrent) - Kidney stones PAST SURGICAL HISTORY Procedure Laterality Date - EGD W/O BRSH SPECIMEN W/BX 01-19-13 - LAP REPAIR INTIAL INGUINAL HERNIA 12-23-12 right - LAPAROSCOPIC CHOLEYCYSTECTOMY Cholecystectomy, lap - SIGMOIDOSCOPY FLEX DIAG 01-19-13 poor prep FAMILY HISTORY Problem Relation Age of Onset - Diabetes Father s/p amputation - Coronary Artery Disease Father [place] - Heart Father aortic valve replacement SOCIAL HISTORYSocial History Marital status: Single Spouse name: Years of education: Number of children: 0 Occupational History Occupation Employer Comment [employer] Social History Main Topics Smoking status: Never Smoker Smokeless tobacco: Never Used Alcohol use: Yes 6.0 oz/week Cans of Beer (12oz): 4 per week Drug use: Yes Frequency: 1.0 time per week Types: Marijuana Sexual activity: No Social History Narrative Lives by himself. Father lives in [place]. Mother lives in [place]. MEDICATIONS/ALLERGIES Current Outpatient Prescriptions: metFORMIN ER (GLUCOPHAGE XR) 500 mg 24 hr tablet Take 500 mg by mouth daily at bedtime. Disp: Rfl: 6 No current facility-administered medications for this visit. ALLERGIES No Known Allergies REVIEW OF SYSTEMS General: No weight loss, malaise or fevers. Neuro: See HPI, no Sz or strokes Respiratory: Hx lung nodules. No known diagnosis; concern about sarcoid Cardiovascular: No history of HTN requiring medication, no history of angina, CHF, [place], cardiac surgery or stents. Denies rest pain, gangrene or revascularization/amputation for PVD. No history of cardiovascular symptoms or problems. GI: No history of GI symptoms or problems. No history of esophageal varices, recent ascites, or ETOH greater than 2 drinks per day. : No history of UTI in past 6 weeks. No history of renal failure. Not currently on or requiring dialysis. No history of symptoms or problems. Endocrine: Diabetes Mellitus on oral agent Hematology: No history of bleeding or clotting disorder. No history of hematological symptoms or problems. Oncology: No history of CA metastasis, chemo within 30 days, or radiotherapy within 90 days. No history of oncological symptoms or problems. Psych: No history of psychiatric symptoms or problems. Skin: Negative for lesions, rash, and itching. PHYSICAL EXAM VITALS: BP 129/80 Pulse 69 Temp (Src) 98.4 (Oral) Ht 5' 4.252 (1.63m) Wt 180 lb (81.6kg) SpO2 97% BMI 30.65 kg/(m2). General: Alert and oriented Skin: Normal color, no rash, no lesions. HEENT: EOM, pupils equal, round and reactive. Cardiovascular: Normal S1 AND S2, no rubs, murmurs or gallops. No JVD. Pulse regular. Lungs: Normal breath sounds, no wheezes or crackles. Abdomen: Soft, non-tender, no rigidity. Extremities: No deformity, no edema or tenderness, no joint swelling or clubbing. Neurological: Normal cognition and motor skills. Pulses: Carotid and radial pulses normal +2. ASSESSMENT Mr. Slaughter is a 52 year old male referred to me for preoperative evaluation. Patient has the following medical comorbidities which might affect the perioperative course: Diabetes--treated with metformin. The patient reports blood sugars about 140-160. He takes metformin only intermittently Lung nodules--he has had FU imaging for these and had bronchoscopy and Bx in the past. There was some concern about sarcoidosis. He is not getting any treatment at this time. He is going to have FU with a ems helicopter pilot Patient's RCRI (Revised Cardiac Risk Index: CAD/CHF/Stroke or TIA/SCr>2/DM on Insulin/High Risk Surgery) score is 0 and is at low risk for major adverse cardiac events in the perioperative period. Diagnostic tests reviewed for today's visit: PENDING PLAN/RECOMMENDATIONS CARDIAC: Patient is at optimal cardiac condition for scheduled surgery / procedure. PULMONARY: Patient is at increased risk for postoperative pulmonary complications. Suggest the following in the post-operative period: Aggressive bronchopulmonary hygiene and Early ambulation He is not on any inhalers or medications for his lungs Patient is optimally prepared for surgery. Patient Instructions: As per patient instructions section. I have discussed the above recommendations with the patient in detail, in tiffanie and lay terms, and provided a written summary of instructions as needed. We have discussed that no surgery is without risk, but that the goal of preoperative assessment is to optimize that risk, and that was clearly understood by the patient. I have given ample opportunity for the patient to ask questions, and answered all questions to their stated satisfaction. SIGNATURE: Yessi Chou MD PATIENT NAME: Yoly Slaughter DATE: May 17, 2018 TIME: 9:22 AM Referring Provider: TANJA RIZVI [[id number]] Allergies As of Date: 05/17/2018 (No Known Allergies) Date Reviewed: 05/17/2018 Reviewed by: Naomie Bowers PRODUCTION QUALITY ANALYST - Fully Assessed Primary Visit Diagnosis:Meningioma (HCC) [D32.9] Other Visit Diagnoses:Pre-operative examination [Z01.818] Pulmonary nodules [R91.8] Gastroesophageal reflux disease without esophagitis [K21.9] Prescriptions as of 05/17/2018 Sig: METFORMIN ER 500 MG TABLET,EX* Take 500 mg by mouth daily at* Problem List As Of Date 05/17/2018 Noted Resolved Kidney stones [N20.0] Acid reflux [K21.9] Rectal bleeding [K62.5] INVALID FOR* Anemia [D64.9] INVALID FOR* Meningioma (HCC) [D32.9] INVALID FOR* Encounter Status:Closed by EFFIE JONES, YESSI Dutton on 05/17/18 CONFIRM BLOOD TYPE Collected: 05/17/2018 Status: F Source: [place] 8:04 AM [facility] REPOSITORY TYPE CODE TESTS RESULT OUT OF REFERENCE UNITS RANGE LAB %ABR O ABO/RH(D) POSITIVE Performed By: #### CONABO #### [facility] [address] [place], [place] [address] CBC Collected: 05/17/2018 Status: F Source: [place] 8:00 AM [facility] REPOSITORY TYPE CODE TESTS RESULT OUT OF REFERENCE UNITS RANGE LAB WBC 3.70-11.00 k/uL WBC 7.43 LAB RBC 4.20-6.00 m/uL RBC 4.99 LAB HGB 13.0-17.0 g/dL Hemoglobin 16.1 LAB HCT 39.0-51.0 % Hematocrit 46.1 LAB MCV 80.0-100.0 fL MCV 92.4 LAB MCH 26.0-34.0 pG MCH 32.3 LAB MCHC 30.5-36.0 g/dL MCHC 34.9 LAB RDWCV 11.5-15.0 % RDW-CV 12.4 LAB PLTCT 150-400 k/uL Platelet Count 182 LAB MPV 9.0-12.7 fL MPV 11.1 LAB ABSNUC <0.01 k/uL Absolute nRBC <0.01 Performed By: #### CBC, PTT, PT, BMP #### [facility] [address] [place], [place] [address] APTT Collected: 05/17/2018 Status: F Source: [place] 8:00 AM [facility] REPOSITORY TYPE CODE TESTS RESULT OUT OF RANGE REFERENCE UNITS LAB APTT 23.0-32.4 sec APTT 27.0 Result Comment: Unfractionated Heparin Therapeutic Ranges: Standard Heparin Nomogram: 53 to 78 seconds (anti-Xa level of 0.3 to 0.7 U/ml) Low Dose/ACS Nomogram: 49 to 67 seconds (anti-Xa level of 0.2 to 0.5 U/ml) Stroke Treatment Nomogram: 49 to 67 seconds (anti-Xa level of 0.2 to 0.5 U/ml) Note: The APTT therapeutic range has been determined for the current lot of laboratory APTT reagent in use throughout the [facility]. Performed By: #### CBC, PTT, PT, BMP #### [facility] [address] [place], [place] [address] PROTIME Collected: 05/17/2018 Status: F Source: [place] 8:00 AM [facility] REPOSITORY TYPE CODE TESTS RESULT OUT OF RANGE REFERENCE UNITS LAB PSEC 9.7-13.0 sec PT Sec 9.8 Result Comment: Result rechecked. Sample checked for a clot. LAB INR 0.9-1.3 Low PT INR <0.9 Result Comment: Vitamin K Antagonist (VKA) Therapeutic Range: INR 2 to 3 (Target INR of 2.5) Note: For patients treated with VKA drugs, such as warfarin, the [place] [employer] 2012 Guideline recommends a therapeutic INR range of 2 to 3 (target INR of 2.5). This recommendation includes high-risk patients with antiphospholipid syndrome with previous arterial or venous thromboembolism, current-generation mechanical or bioprosthetic aortic heart valve replacement. Note: Patients with mechanical aortic valve replacement and additional risk factors for thromboembolic events (atrial fibrillation, previous thromboembolism, LV dysfunction, hypercoagulable conditions) or an older generation mechanical AVR (i.e., ball in-Cage) or any mechanical MVR should have a INR therapeutic range of 2.5 to 3.5 (target INR of 3). Magda GH, et al. Chest 2012, 141:7S-47S Danny RA, et al. JACC 2017, 70: 252-289 Result rechecked. Sample checked for a clot. Performed By: #### CBC, PTT, PT, BMP #### [facility] [address] [place], [place] [address] BASIC METABOLIC PANL Collected: 05/17/2018 Status: F Source: [place] 8:00 AM [facility] REPOSITORY TYPE CODE TESTS RESULT OUT OF REFERENCE UNITS RANGE LAB GLU 74-99 mg/dL High Glucose 152 Result Comment: The [place] Diabetes Association (ADA) provides guidance for cutoff values for fasting glucose and random glucose. The ADA defines fasting as no caloric intake for at least 8 hours. Fas ting plasma glucose results between 100 to 125 mg/dL indicate increased risk for diabetes (prediabetes). Fasting plasma glucose results greater than or equal to 126 mg/dL meet the criteria for diagnosis of diabetes. In the absence of unequivocal hyperglycemia, results should be confirmed by repeat testing. In a patient with classic symptoms of hyperglycemia or hyperglycemic crisis, random plasma glucose results greater than or equal to 200 mg/dL meet the criteria for diagnosis of diabetes. Reference: Standards of Medical Care in Diabetes 2016, [place] [employer] Association. Diabetes Care. 2016.39(Suppl 1). LAB BUN 9-24 mg/dL BUN 13 LAB CRET 0.73-1.22 mg/dL Creatinine 0.73 LAB NA 136-144 mmol/L Sodium 138 LAB K 3.7-5.1 mmol/L Potassium 4.4 LAB CL 97-105 mmol/L Chloride 100 LAB CO2 22-30 mmol/L CO2 24 LAB AGAP 9-18 mmol/L Anion Gap 14 LAB CA 8.5-10.2 mg/dL Calcium, Total 9.7 LAB GFRAA eGFR- Amer. >60 LAB GFRNAA . eGFR-All Other Races >60 Result Comment: eGFR (Estimated GFR) Units of measure: mL/min/1.73 meters squared eGFR is derived from the reexpressed MDRD Study equation using the following parameters: serum creatinine, age, gender and race. The creatinine assay has been calibrated to be traceable to IDMS. An eGFR <60 mL/min/1.73m2 for >3 months is consistent with chronic kidney disease. Refer to KDOQI guidelines for clinical interpretation. In patients with unstable renal function, e.g. those with acute kidney injury, the eGFR may not accurately reflect actual GFR. Performed By: #### CBC, PTT, PT, BMP #### [facility] [address] [place], [place] [address] TYPE AND SCR (30D) Collected: 05/17/2018 Status: F Source: [place] 8:00 AM [facility] REPOSITORY TYPE CODE TESTS RESULT OUT OF REFERENCE UNITS RANGE LAB %ABR O ABO/RH(D) POSITIVE LAB % Antibody NEG Screen Performed By: #### [id number] #### [facility] [address] [place], [place] [address] PULMONARY VISIT REPORT Observed: 05/09/2018 Status: F Source: [place] 2:19 PM [facility] REPOSITORY [facility] [address] [place] [address] OFFICE VISIT Date of Service: 05/09/18 MR#: [id number] Acct: [id number] Name: YOLY SLAUGHTER Rep #: [id number] : 1965 Provider: Jazzy Rey Age/Sex: 52/M Location: [facility] Status: Signed Assessment AND Plan 1. Pulmonary sarcoidosis D86.0 Plan Stable. Shortness of breath has not worsened, therefore no reason to initiate steroid therapy. Discussed that if the symptoms worsen prior to the scheduled follow-up that the patient should contact the office for an acute visit. Given his upcoming surgery, there would need to be a great amount of deliberation regarding the initiation of steroid therapy, given that it would prolong any healing. No further testing at this time, plan to repeat pulmonary function test and a CT of the chest with contrast in 6 months prior to follow- up with Dr. Fallon. The patient will need to have kidney function evaluated prior to the CT with contrast, this has been ordered. The patient conveys understanding and is agreeable to this plan. Orders Orders: 2. Brain tumor D49.6 Plan As appropriate, the patient is concerned and focused on his upcoming brain tumor removal. This condition complicates the exam, plan, care and prognosis. Follow-up with Dr. Fallon in 6 months. Plan Detail Follow Up 6 Months ([facility]) HPI 3 M FU: Chief Complaint: Shortness of breath on exertion HPI Comments Details: [...] He has not required any antibiotics or prednisone for any breathing problems. He is not currently on any inhalers, including rescue inhalers. Currently, he is only experiencing shortness of breath on activity. This shortness of breath on activity has not worsened since his last office [...] cannot completely rule this out until testing can be performed. Pulmonary function test completed on March 03, 2018 interpreted as showing a mild restrictive ventilatory defect with a preserved diffusing capacity. FVC 69% of predicted, FEV1 73% predicted, FEV1/FVC 82% predicted, TLC 82% of predicted, RV 80% of predicted and DLCO 92% Intake Vital Signs05/09/18 Height 5 ft 6 in 05/09/18 Weight: 172 lb Intake Visit Reasons: 3 M FU Accompanied by: Self Allergies No Known Allergies Allergy (Verified 05/09/18 07:43) Medications metformin 500 mg tablet 500 mg PO QDAY tab 10/05/17 [History Confirmed 05/09/18] [facility] Medical History Ejaculation blood (Acute) Hematuria (Acute) [...] of hearing Nose Nose: Positive external nose normal and no nasal discharge; negative epistaxis Mouth Mouth: Positive oral mucosae normal, no lesions, oral thrush present, dentures and posterior oropharynx is adequate; negative post nasal drip or malodorous breath Mallampati [...] Positive steady gait and ROM normal; negative kyphosis or scoliosis Skin Pulmonary Skin Exam: Positive intact; negative rash, lesion, ulcers, erythema or scaly Pulses Pulse: Yes pulses normal x4 extremities Extremities Extremities: Yes capillary refill normal, Yes clubbing, No cyanosis, No edema Neuro Neurologic: Yes conversant, Yes no focal neuro deficits, Yes normal concentration, Yes understands questions, Yes cooperative, Yes normal coordination, Yes normal cognition Lymph Lymphatic: No lymphadenopathy, No tenderness, No cervical adenopathy Psych Appearance: Positive grossly normal, eye contact and well kempt Mental Status: Positive mental status grossly normal Mood: Positive congruent mood Affect: Positive normal affect Coding Level of Care Code Off vis,est,level 4 Diagnoses Pulmonary sarcoidosis D86.0 Brain tumor D49.6 05/09/18 1419 <Electronically signed by Jazzy CUNHA> Date Jazzy CUNHA Cosigner Signature: Date (if applicable) CC: Louann Ruiz NP [employer] AURE[facility] PCR Collected: 05/03/2018 Status: F Source: [place] 5:20 PM [facility] REPOSITORY TYPE CODE TESTS RESULT OUT OF REFERENCE UNITS RANGE LAB [facility] Nasal S aureus Spec Source LAB MRSRES Negative for MRSA MRSA by PCR. PCR LAB SARES Negative for Staph Staphylococcus aureus PCR aureus by PCR. Performed By: #### SAPCR #### [facility] [address] [place], [place] [address] PROGRESS Observed: 05/03/2018 Status: COMPLETED Source: [place] 2:06 PM [facility] REPOSITORY HNO ID: [id number] Author: Tanja Rizvi Service: (none) Author Type: Physician Type: Progress Notes Filed: 05/03/2018 3:13 PM Note Text: BTI OUTPATIENT EVALUATION The patient is self referred for neurosurgical evaluation. CHIEF COMPLAINT : Newly diagnosed meningioma HISTORY OF PRESENT ILLNESS : The patient is a 52 year old, right handed male who presents for neurosurgical evaluation. He states that he has bilateral tinnitus and occasional decreased hearing in his left ear since the last 2 months. He also has episodes of sudden loss of strength in both the upper and lower limbs and extreme fatigue associated with nausea/vomiting. He has had 2-3 such episodes in the last 2 months. He also endorses a baseline dull aching headache since the last 2 years. He was diagnosed with bilateral pulmonary nodules, which were biopsied. The pathology was inconclusive, though there was some concern for sarcoidosis. He hasn't had any treatment for it and is currently asymptomatic. Otherwise, denies any seizures, changes in vision, or double vision. PAST HISTORY Past Medical History : PAST MEDICAL HISTORY Diagnosis Date - Acid reflux - Inguinal hernia without mention of obstruction or gangrene, unilateral or unspecified, (not specified as recurrent) - Kidney stones Past Surgical History : PAST SURGICAL HISTORY Procedure Laterality Date - EGD W/O [facility] SPECIMEN W/BX 01-19-13 - LAP REPAIR INTIAL INGUINAL HERNIA 12-23-12 right - LAPAROSCOPIC CHOLEYCYSTECTOMY Cholecystectomy, lap - SIGMOIDOSCOPY FLEX DIAG 01-19-13 poor prep Current Medications : Current Outpatient Prescriptions: metFORMIN ER (GLUCOPHAGE XR) 500 mg 24 hr tablet Take 500 mg by mouth daily at bedtime. Disp: Rfl: 6 No current facility-administered medications for this visit. Allergies : ALLERGIES No Known Allergies Social History : Social History Marital status: Single Spouse name: Years of education: Number of children: 0 Occupational History Occupation Employer Comment [employer] Social History Main Topics Smoking status: Never Smoker Smokeless tobacco: Never Used Alcohol use: Yes 6.0 oz/week Cans of Beer (12oz): 4 per week Drug use: Yes Frequency: 1.0 time per week Types: Marijuana Sexual activity: No Social History Narrative Lives by himself. Father lives in [place]. Mother lives in [place]. Family History : FAMILY HISTORY Problem Relation Age of Onset - Diabetes Father s/p amputation - Coronary Artery Disease Father [place] - Heart Father aortic valve replacement REVIEW OF SYSTEMS : Constitutional: No recent fever or weight loss. Eyes: No history of glaucoma or cataracts ENMT: No recent ear infection, nasal congestion, mouth sores or sore throat. CV: No history of chest pain, palpitations or leg swelling Respiratory: No history of SOB, asthma or recent cough. Gastrointestinal: No history of nausea, vomiting, dysphagia or abdominal pain. Genitourinary: No history of hematuria or dysuria. Musculoskeletal: No complaint of arthritis, unstable gait or arm/leg weakness Psychiatric: No history of hallucinations or depression or anxiety Neurological : No complaint of headache No complaint of tinnitus No complaint of decreased hearing No complaint of diplopia No complaints of blurred vision. No complaint of arm/leg numbness No problem with limb coordination No complaint of syncope No complaints of seizures. No complaints of memory changes or disorientation. PHYSICAL EXAMINATION : Constitutional : BP 176/97 Pulse 80 Temp 36.7 ?C (98.1 ?F) (Oral) Resp 18 Ht 163.2 cm (5' 4.25) Wt 79.1 kg (174 lb 6.4 oz) SpO2 97% BMI 29.70 kg/m? General : WDWN male in NAD Head, Face, Neck: No JVD, Carotid bruits. No thyroid enlargement, tenderness, mass. Eyes: Clear conjunctiva. Non-icteric. OE shows optic discs sharp. Posterior segments without hemorrhages. Respiratory: Lungs clear to auscultation bilaterally CV: Heart auscultation shows no abnormal sounds or murmurs. Abdomen: Soft, non-tender with no organomegally. Vascular: Peripheral pulses normal. Neurological : Higher integrative functions: Oriented to person, place AND time Memory: Good recent and remote Attention Span and Concentration: Good Language: Accurate naming of objects. Good comprehension Fund of Knowledge: Good Sensory: Light touch and vibration intact. No extinction. 2nd CN: Full visual recio 3rd,4th,6th CN: Pupils (=), round, react to light, full extraocular movements: 5th CN: No decrease in facial sensation, normal corneal reflexes. 7th CN: Facial muscles symmetric and strong 8th CN: Hears finger rub well bilaterally 9th CN: Good gag 10th CN: Spontaneous palate movement, full and symmetric 11th CN: Full strength in shoulder shrug. 12th CN: Tongue protrusion full and midline Myotatic reflexes: 2/4 throughout and symmetrical Babinski reflexes: Absent Coordination: Rapid alternating movements fast and smooth all limbs. Musculoskeletal: Gait is normal. Negative Rhomberg and tandem gait are normal. Muscle strength 5/5 and muscle tone normal without atrophy in all limbs. Medical Decision Making Data Review : Review of reports of lab, radiology and /or other diagnostic test (s) :[facility]:03/14/2018 MRI/Brain W/WO Contrast IMPRESSION: There is enhancing right frontal extra-axial mass measures 3.3 x 3.5 x 1.2 cm is most likely a meningioma. (REPORT ONLY) Diagnosis : Likely Meningioma KPS score : 100 FORMULATION : This is a 52 year old, right handed male who presents for neurosurgical opinion on his newly discovered meningioma. He is here today without the MRI images. I discussed with him the likelihood that a 3.5 cm meningioma will require surgical management, but that I cannot make a definitive recommendation until I have reviewed the actual images. We gave him instructions for obtaining a disc with the images and how to get them to us. Further plans to follow my review of the images. Tanja Rizvi MD PhD seen with Christopher Vera MD CNOV Observed: 05/03/2018 Status: COMPLETED Source: [place] 12:10 PM [facility] REPOSITORY Office Visit (NSCAMN) YOLY SLAUGHTER ([id number]) 1965 M Date Time Provider Department 05/03/18 12:10 PM TANJA RIZVI During your visit today, we recorded the following information about you: Temperature Pulse Respiration Blood pressure 98.1 degrees 80/minute 18/minute 176/97 Weight Height 79.1 kg 1.632 m Luis Armando Tarvis LPN 05/03/2018 12:47 PM Signed Additional intake questions: Has the patient had nausea, vomiting, diarrhea, constipation, fatigue for > 1 week? Vomiting, Yes, MD Notified Nausea, Yes, MD Notified Fatigue, Yes, MD Notified Does the patient have a decreased appetite? No Does patient want to see a Police Guard? No (yes to any of above refer patient to schedulers for dietitian appointment) ) Does patient have any new or increased numbness or tingling of extremities? No Is patient interested in fertility information? No Does patient need any prescription refills? No Electronically Signed By: Luis Armando Rizvi MD PhD 05/03/2018 3:13 PM Signed BTI OUTPATIENT EVALUATION The patient is self referred for neurosurgical evaluation. CHIEF COMPLAINT : Newly diagnosed meningioma HISTORY OF PRESENT ILLNESS : The patient is a 52 year old, right handed male who presents for neurosurgical evaluation. He states that he has bilateral tinnitus and occasional decreased hearing in his left ear since the last 2 months. He also has episodes of sudden loss of strength in both the upper and lower limbs and extreme fatigue associated with nausea/vomiting. He has had 2-3 such episodes in the last 2 months. He also endorses a baseline dull aching headache since the last 2 years. He was diagnosed with bilateral pulmonary nodules, which were biopsied. The pathology was inconclusive, though there was some concern for sarcoidosis. He hasn't had any treatment for it and is currently asymptomatic. Otherwise, denies any seizures, changes in vision, or double vision. PAST HISTORY Past Medical History : PAST MEDICAL HISTORY Diagnosis Date - Acid reflux - Inguinal hernia without mention of obstruction or gangrene, unilateral or unspecified, (not specified as recurrent) - Kidney stones Past Surgical History : PAST SURGICAL HISTORY Procedure Laterality Date - EGD W/O [facility] SPECIMEN W/BX 01-19-13 - LAP REPAIR INTIAL INGUINAL HERNIA 12-23-12 right - LAPAROSCOPIC CHOLEYCYSTECTOMY Cholecystectomy, lap - SIGMOIDOSCOPY FLEX DIAG 01-19-13 poor prep Current Medications : Current Outpatient Prescriptions: metFORMIN ER (GLUCOPHAGE XR) 500 mg 24 hr tablet Take 500 mg by mouth daily at bedtime. Disp: Rfl: 6 No current facility-administered medications for this visit. Allergies : ALLERGIES No Known Allergies Social History : Social History Marital status: Single Spouse name: Years of education: Number of children: 0 Occupational History Occupation Employer Comment [employer] Social History Main Topics Smoking status: Never Smoker Smokeless tobacco: Never Used Alcohol use: Yes 6.0 oz/week Cans of Beer (12oz): 4 per week Drug use: Yes Frequency: 1.0 time per week Types: Marijuana Sexual activity: No Social History Narrative Lives by himself. Father lives in [place]. Mother lives in [place]. Family History : FAMILY HISTORY Problem Relation Age of Onset - Diabetes Father s/p amputation - Coronary Artery Disease Father [place] - Heart Father aortic valve replacement REVIEW OF SYSTEMS : Constitutional: No recent fever or weight loss. Eyes: No history of glaucoma or cataracts ENMT: No recent ear infection, nasal congestion, mouth sores or sore throat. CV: No history of chest pain, palpitations or leg swelling Respiratory: No history of SOB, asthma or recent cough. Gastrointestinal: No history of nausea, vomiting, dysphagia or abdominal pain. Genitourinary: No history of hematuria or dysuria. Musculoskeletal: No complaint of arthritis, unstable gait or arm/leg weakness Psychiatric: No history of hallucinations or depression or anxiety Neurological : No complaint of headache No complaint of tinnitus No complaint of decreased hearing No complaint of diplopia No complaints of blurred vision. No complaint of arm/leg numbness No problem with limb coordination No complaint of syncope No complaints of seizures. No complaints of memory changes or disorientation. PHYSICAL EXAMINATION : Constitutional : BP 176/97 Pulse 80 Temp 36.7 ?C (98.1 ?F) (Oral) Resp 18 Ht 163.2 cm (5' 4.25) Wt 79.1 kg (174 lb 6.4 oz) SpO2 97% BMI 29.70 kg/m? General : WDWN male in NAD Head, Face, Neck: No JVD, Carotid bruits. No thyroid enlargement, tenderness, mass. Eyes: Clear conjunctiva. Non-icteric. OE shows optic discs sharp. Posterior segments without hemorrhages. Respiratory: Lungs clear to auscultation bilaterally CV: Heart auscultation shows no abnormal sounds or murmurs. Abdomen: Soft, non-tender with no organomegally. Vascular: Peripheral pulses normal. Neurological : Higher integrative functions: Oriented to person, place AND time Memory: Good recent and remote Attention Span and Concentration: Good Language: Accurate naming of objects. Good comprehension Fund of Knowledge: Good Sensory: Light touch and vibration intact. No extinction. 2nd CN: Full visual recio 3rd,4th,6th CN: Pupils (=), round, react to light, full extraocular movements: 5th CN: No decrease in facial sensation, normal corneal reflexes. 7th CN: Facial muscles symmetric and strong 8th CN: Hears finger rub well bilaterally 9th CN: Good gag 10th CN: Spontaneous palate movement, full and symmetric 11th CN: Full strength in shoulder shrug. 12th CN: Tongue protrusion full and midline Myotatic reflexes: 2/4 throughout and symmetrical Babinski reflexes: Absent Coordination: Rapid alternating movements fast and smooth all limbs. Musculoskeletal: Gait is normal. Negative Rhomberg and tandem gait are normal. Muscle strength 5/5 and muscle tone normal without atrophy in all limbs. Medical Decision Making Data Review : Review of reports of lab, radiology and /or other diagnostic test (s) :[facility]:03/14/2018 MRI/Brain W/WO Contrast IMPRESSION: There is enhancing right frontal extra-axial mass measures 3.3 x 3.5 x 1.2 cm is most likely a meningioma. (REPORT ONLY) Diagnosis : Likely Meningioma KPS score : 100 FORMULATION : This is a 52 year old, right handed male who presents for neurosurgical opinion on his newly discovered meningioma. He is here today without the MRI images. I discussed with him the likelihood that a 3.5 cm meningioma will require surgical management, but that I cannot make a definitive recommendation until I have reviewed the actual images. We gave him instructions for obtaining a disc with the images and how to get them to us. Further plans to follow my review of the images. Tanja Rizvi MD PhD seen with Christopher Vera MD Referring Provider: BOB VELÁZQUEZ [[id number]] Allergies As of Date: 05/03/2018 (No Known Allergies) Date Reviewed: 05/03/2018 Reviewed by: Luis Armando Travis LPN - Fully Assessed Reason for Visit: Consult [173] Visit Diagnosis:Meningioma (HCC) [D32.9] Prescriptions as of 05/03/2018 Sig: METFORMIN ER 500 MG TABLET,EX* Take 500 mg by mouth daily at* Problem List As Of Date 05/03/2018 Noted Resolved Kidney stones [N20.0] Acid reflux [K21.9] Rectal bleeding [K62.5] INVALID FOR* Anemia [D64.9] INVALID FOR* Meningioma (HCC) [D32.9] INVALID FOR* Visit Notes: >> Luis Armando Travis LPN Louis May 03, 2018 12:45 PM Status: Signed Additional intake questions: Has the patient had nausea, vomiting, diarrhea, constipation, fatigue for > 1 week? Vomiting, Yes, MD Notified Nausea, Yes, MD Notified Fatigue, Yes, MD Notified Does the patient have a decreased appetite? No Does patient want to see a Police Guard? No (yes to any of above refer patient to schedulers for dietitian appointment) ) Does patient have any new or increased numbness or tingling of extremities? No Is patient interested in fertility information? No Does patient need any prescription refills? No Electronically Signed By: Luis Armando Travis LPN Medications Discontinued During This Encounter ranitidine 150 mg tablet 60 t* 1 12/06/2012 05/03/2018 Route: ORAL Sig: Take 1 tablet by mouth twice daily. Disc: Discontinued by another Health Care Provider Encounter Status:Closed by BELKYS JONES, TANJA PHD on 05/03/18 CNCO Observed: 05/03/2018 Status: COMPLETED Source: [place] 12:00 AM [facility] [place] REPOSITORY Letter Text Yoly Slaughter Tanja Rizvi M.D., Ph. D. Damaris Greene Chair for Neuro-Oncology Assoc.Director, Brain Tumor AND Neuro-Oncology Ctr. Assoc. Director, Neurosurgical Oncology [address] [place] [address]/ [place] [id number] P: [phone] F: [phone] 05/03/2018 RE: MarioYoly kirkpatrick : 1965 TO WHOM IT MAY CONCERN: This is to confirm that Yoly Slaughter had an appointment and was seen at the [facility] in the Department of Neurosurgery by Dr. Rizvi on 05/03/2018. Please excuse him from work for this appointment. Please contact my office with any questions. Sincerely yours, Rock Vogan, RN HOSP Observed: 05/03/2018 Status: COMPLETED Source: [place] 12:00 AM [facility] REPOSITORY Patient:Yoly Slaughter MRN: <[id number]> Height:5' 4.25(1.632 m) Weight:181 lb 8 oz (82.328 kg) Outpatient Medications as of 05/18/18: metFORMIN ER (GLUCOPHAGE XR) 500 mg 24 hr tablet Admission/Clinic Administered Medications as of 05/18/18: 0.9% NaCl 2-10 mL Problem List: Kidney stones [N20.0] Acid reflux [K21.9] Rectal bleeding [K62.5] Anemia [D64.9] Meningioma (HCC) [D32.9] Allergies: No Known Allergies Date Verified:05/18/18 Lab Values Lab Value Units Date High Low POTA* 4.4 mmol/L 05/17/2018 5.1 3.7 CELSO* 46.1 % 05/17/2018 51.0 39.0 Progress Notes ([facility]): Naomie Bowers LPN 05/17/2018 9:38 AM Signed Yoly Slaughter is a 52 year old male here today for visit in [facility] Referring Surgeon: Dr. Rizvi Date of Surgery: 05/18/2018 Planned Surgery/Procedure: CRANIECTOMY, TREPHINATION Allergies have been reviewed and verified. They include the following: Patient has no known allergies. Social History Substance Use Topics - Smoking status: Never Smoker - Smokeless tobacco: Never Used - Alcohol use 6.0 oz/week 4 Cans of Beer (12oz) per week Medications reviewed and updated: Yes Naomie Chou MD 05/17/2018 9:38 AM Signed HISTORY AND PHYSICAL EXAMINATION (IMPACT) SERVICE DATE: 05/17/2018 SERVICE TIME: 9:22 AM PRIMARY CARE PHYSICIAN: Justin Dc MD CHIEF COMPLAINT/HISTORY OF PRESENT ILLNESS: Mr. Slaughter is a 52 year old male referred to me for preoperative evaluation. My final recommendations will be communicated back to the requesting physician/surgeon by the way of the shared medical record. Referring Surgeon: Dr. Rizvi Date of Surgery: 05/18/2018 Planned Surgery/Procedure: CRANIECTOMY, TREPHINATION Indication for Planned Surgery / Procedure: The patient presents for surgical treatment of meningioma. From Dr. Rizvi's notes: He states that he has bilateral tinnitus and occasional decreased hearing in his left ear since the last 2 months. He also has episodes of sudden loss of strength in both the upper and lower limbs and extreme fatigue associated with nausea/vomiting. He has had 2-3 such episodes in the last 2 months. He also endorses a baseline dull aching headache since the last 2 years. The patient had some unstable gait in January 2018 and then had another event when he had vertigo and loss of muscle function. He had an MRI after one of the events and for assessment of hearing loss. He was referred for assessment of treatment of brain tumor. Other medical problems: Diabetes--treated with metformin. The patient reports blood sugars about 140-160. He takes metformin only intermittently Lung nodules--he has had FU imaging for these and had bronchoscopy and Bx in the past. There was some concern about sarcoidosis Patient is Able to Perform the Following Physical Activity: Climb a flight of stairs or walk up a hill (5.50 METs) Patient's functional class is II based on self-reported physical activity. Significant Anesthesia Considerations: None. PAST MEDICAL/SURGICAL/FAMILY/SOCIAL HISTORY PAST MEDICAL HISTORY Diagnosis Date - Acid reflux - Inguinal hernia without mention of obstruction or gangrene, unilateral or unspecified, (not specified as recurrent) - Kidney stones PAST SURGICAL HISTORY Procedure Laterality Date - EGD W/O [facility] SPECIMEN W/BX 01-19-13 - LAP REPAIR INTIAL INGUINAL HERNIA 12-23-12 right - LAPAROSCOPIC CHOLEYCYSTECTOMY Cholecystectomy, lap - SIGMOIDOSCOPY FLEX DIAG 01-19-13 poor prep FAMILY HISTORY Problem Relation Age of Onset - Diabetes Father s/p amputation - Coronary Artery Disease Father [place] - Heart Father aortic valve replacement SOCIAL HISTORYSocial History Marital status: Single Spouse name: Years of education: Number of children: 0 Occupational History Occupation Employer Comment [employer] Social History Main Topics Smoking status: Never Smoker Smokeless tobacco: Never Used Alcohol use: Yes 6.0 oz/week Cans of Beer (12oz): 4 per week Drug use: Yes Frequency: 1.0 time per week Types: Marijuana Sexual activity: No Social History Narrative Lives by himself. Father lives in [place]. Mother lives in [place]. MEDICATIONS/ALLERGIES Current Outpatient Prescriptions: metFORMIN ER (GLUCOPHAGE XR) 500 mg 24 hr tablet Take 500 mg by mouth daily at bedtime. Disp: Rfl: 6 No current facility-administered medications for this visit. ALLERGIES No Known Allergies REVIEW OF SYSTEMS General: No weight loss, malaise or fevers. Neuro: See HPI, no Sz or strokes Respiratory: Hx lung nodules. No known diagnosis; concern about sarcoid Cardiovascular: No history of HTN requiring medication, no history of angina, CHF, WA, cardiac surgery or stents. Denies rest pain, gangrene or revascularization/amputation for PVD. No history of cardiovascular symptoms or problems. GI: No history of GI symptoms or problems. No history of esophageal varices, recent ascites, or ETOH greater than 2 drinks per day. : No history of UTI in past 6 weeks. No history of renal failure. Not currently on or requiring dialysis. No history of symptoms or problems. Endocrine: Diabetes Mellitus on oral agent Hematology: No history of bleeding or clotting disorder. No history of hematological symptoms or problems. Oncology: No history of CA metastasis, chemo within 30 days, or radiotherapy within 90 days. No history of oncological symptoms or problems. Psych: No history of psychiatric symptoms or problems. Skin: Negative for lesions, rash, and itching. PHYSICAL EXAM VITALS: BP 129/80 Pulse 69 Temp (Src) 98.4 (Oral) Ht 5' 4.252 (1.63m) Wt 180 lb (81.6kg) SpO2 97% BMI 30.65 kg/(m2). General: Alert and oriented Skin: Normal color, no rash, no lesions. HEENT: EOM, pupils equal, round and reactive. Cardiovascular: Normal S1 AND S2, no rubs, murmurs or gallops. No JVD. Pulse regular. Lungs: Normal breath sounds, no wheezes or crackles. Abdomen: Soft, non-tender, no rigidity. Extremities: No deformity, no edema or tenderness, no joint swelling or clubbing. Neurological: Normal cognition and motor skills. Pulses: Carotid and radial pulses normal +2. ASSESSMENT Mr. Slaughter is a 52 year old male referred to me for preoperative evaluation. Patient has the following medical comorbidities which might affect the perioperative course: Diabetes--treated with metformin. The patient reports blood sugars about 140-160. He takes metformin only intermittently Lung nodules--he has had FU imaging for these and had bronchoscopy and Bx in the past. There was some concern about sarcoidosis. He is not getting any treatment at this time. He is going to have FU with a ems helicopter pilot Patient's RCRI (Revised Cardiac Risk Index: CAD/CHF/Stroke or TIA/SCr>2/DM on Insulin/High Risk Surgery) score is 0 and is at low risk for major adverse cardiac events in the perioperative period. Diagnostic tests reviewed for today's visit: PENDING PLAN/RECOMMENDATIONS CARDIAC: Patient is at optimal cardiac condition for scheduled surgery / procedure. PULMONARY: Patient is at increased risk for postoperative pulmonary complications. Suggest the following in the post-operative period: Aggressive bronchopulmonary hygiene and Early ambulation He is not on any inhalers or medications for his lungs Patient is optimally prepared for surgery. Patient Instructions: As per patient instructions section. I have discussed the above recommendations with the patient in detail, in tiffanie and lay terms, and provided a written summary of instructions as needed. We have discussed that no surgery is without risk, but that the goal of preoperative assessment is to optimize that risk, and that was clearly understood by the patient. I have given ample opportunity for the patient to ask questions, and answered all questions to their stated satisfaction. SIGNATURE: Yessi Chou MD PATIENT NAME: Yoly Slaughter DATE: May 17, 2018 TIME: 9:22 AM Progress Notes ([facility]): Chau Akins RN 05/17/2018 10:29 AM Addendum ANESTHESIA PRE-OPERATIVE ASSESSMENT (PACE) SERVICE DATE: 05/17/2018 SERVICE TIME: 1008 ASSESSMENT AND PLAN: Yoly Slaughter is a 52 year old male scheduled for CRANIECTOMY, TREPHINATION, BONE FLAP CRANIOTOMY / EXCISE SUPRATENTORIAL MENINGIOMA 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- had follow up imaging, bronch, biopsy for lung nodules; no known diagnosis, Is not taking any steroids or using an inhaler; some concern for sarcoidosis-(as per impact note) ongoing follow up with pulmonary [facility] noted liver dysfunction- patient denies, prior epic noted indicate elevated lft 2009 from otc pain relievers for headaches- lft 2012 wnl, hep panel done [facility] indicated drug use- does smoke marijuana ; last time he used crack was several months ago per patient report patient denies OSA_ states he has a hard time falling asleep, is not using a CPAP machine at home [facility]: 3 FC: 2 METS: Climb a flight of stairs or walk up a hill (5.50 METs) Patient WILL accept blood products. BLOOD WORK/PRODUCTS ORDERED: Type and Screen , Con ABO HISTORY OF CHRONIC PAIN: No PAIN MANAGEMENT OPTIONS: Routine/PRN IV and Final pain management plan will be discussed on the day of surgery. ANESTHETIC OPTIONS: General and Final anesthesia management options will be discussed on day of surgery. PRE-OP PLAN ORDERED: Diabetes orders Patient Instructed: ? No solid food or non-clear liquids after midnight. Clear liquids allowed until two hours before scheduled arrival. ? Patient instructed to take the following medications with a sip of water: zantac Vital Signs: BP 129/80 Pulse 69 Ht 163.2 cm (5' 4.25) Wt 81.6 kg (180 lb) SpO2 97% BMI 30.66 kg/m? BMI 30.66 kg/(m2) Vital signs completed by: [facility] Weight acquired: per HANDP. Height acquired: per HANDP Airway Exam: MOUTH OPENING/TMJ: Full jaw ROM MICROGNATHIA/OVERBITE: No MALLAMPATI SCORE is CLASS I UPPER LIP BITE TEST: Class I - Lower incisors can bite the upper lip above the emma line DENTITION: Edentulous/dentures THYROMENTAL DIST: WNL SHORT NECK: No NECK CIRCUMFERENCE >40 cm: Appears < than 40 CM NECK FLEX: Full ROM NECK EXTENSION: Full ROM AIRWAY HISTORY: No abnormal airway history ARKS AIRWAY DETAIL: N/A DATA: EKG READING: EKG not indicated OTHER TESTS: N/A Lab Value Units Date High Low HB 16.1 g/dL 05/17/2018 17.0 13.0 HCT 46.1 % 05/17/2018 51.0 39.0 WBC 7.43 k/uL 05/17/2018 11.00 3.70 PLT 182 k/uL 05/17/2018 400 150 NA No results within date range. K No results within date range. GLUC No results within date range. BUN No results within date range. CREAT No results within date range. PTSEC 9.8 sec 05/17/2018 13.0 9.7 INR <0.9 no uni* 05/17/2018 1.3 0.9 APTT 27.0 sec 05/17/2018 32.4 23.0 ALT No results within date range. AST No results within date range. TBILI No results within date range. TSH No results within date range. Lab Value Units Date High Low HCGQT No results within date range. UHCG No results within date range. HCG, BODY* No results within date range. ABORHD No results within date range. ABSCREEN No results within date range. HBA1C: Hemoglobin A1C (%) Date Value 12/30/2012 5.4 ) Patient accompanied by self Case Discussed with Dr Feliciano OPTIMIZATION STATUS: Patient optimization pending Labs [facility] SIGNATURE: Chau Akins RN PATIENT NAME: Yoly Slaughter DATE: May 17, 2018 TIME: 10:04 AM PAGER/CONTACT #: Previous Version BRAIN W/WO CONTRAST Observed: 03/14/2018 Status: F Source: [place] 9:37 AM [facility] REPOSITORY [facility] Imaging Services [address] [place] [id number] Brain W/WO Contrast MR#: [id number] Acct: [id number] Name: YOLY SLAUGHTER Rep #: [id number] : 1965 M 52 From: Rosario Choudhury MD PCP: Louann Ruiz NP Status: REG CLI Study: Brain W/WO Contrast Date of Exam: 03/14/18 Exam# [id number] Ordering Dr: Rogerio Velázquez MD STUDY: MRI BRAIN WITH AND WITHOUT CONTRAST REASON FOR EXAM: Male, 52 years old. left hearing loss with bilat tinnitus Lt Tgt; Rt, no pain , no dizziness TECHNIQUE: Standardized multiplanar fat and water weighted pulse sequences were obtained. 7 ml of Gadavist contrast material was administered intravenously for the contrast portion of the examination. COMPARISON: None. FINDINGS: Normal size of the ventricles and extra-axial spaces for the patient's age. Normal white matter tracts of the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 brain. Normal bilateral basal ganglia. Normal thalami. There is no extra-axial fluid accumulation. Normal flow voids within the major intracranial circulation suggesting patency by spin echo criteria. Normal venous enhancement. There is enhancing right frontal extra-axial mass measures 3.3 x 3.5 x 1.2 cm is most likely a meningioma. 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 Normal sella turcica, pituitary gland, infundibular stalk, optic chiasm and hypothalamus. Normal tectal plate and pineal gland. Normal midbrain, poly and medulla. Normal cerebellum. Normal basal cisterns. Normal bilateral temporal bones. Normal bilateral internal auditory canals. No demonstrated orbital abnormality, within the constraints of a routine brain study. Normal visualized paranasal sinuses. Normal calvarium and skull base. Normal visualized soft tissue structures. Normal visualized upper cervical spine. MRI/Brain W/WO Contrast IMPRESSION: There is enhancing right frontal extra-axial mass measures 3.3 x 3.5 x 1.2 cm is most likely a meningioma. Electronically Signed: Rosario Choudhury MD at 14:01 EDT Tel , Service support , CC: Louann Ruiz NP; Bob Velázquez MD Developmental Mathematics Instructor: Signed MR-BRAIN W/WO Observed: 03/14/2018 Status: F Source: [place] CONTRAST [place] 12:00 AM [facility] REPOSITORY Images were obtained outside of [facility] [id number] PULMONARY FUNCTION Observed: 03/03/2018 Status: F Source: [place] REPORT COMP 11:33 AM [facility] REPOSITORY [facility] Pulmonary Services/Neurology [address] [place] [address] MR#: [id number] Acct: [id number] Name: YOLY SLAUGHTER Rep #: [id number] : 1965 52 From: Wilder Fallon MD Referring Dr: Wilder Fallon MD Status: REG CLI Ordering Dr: Date: Location: PSN Sex: M C COMPLETE PULMONARY FUNCTION TEST INTERPRETATION Brief HPI: Patient is a 52 year old male, currently under the care of myself, who presents to [facility] for complete pulmonary function tests secondary to diagnosis of sarcoidosis. Respiratory therapist reports good effort and reproducible results. Interpretation: Forced expiration spirometry shows no large airways obstructive ventilatory defect with an FEV1 of 73% predicted. There is no significant bronchodilator response by ATS criteria. Spirograms are of good quality and plateau normally. The respiratory flow volume loop shows a normal pattern. Lung volumes by body plethysmography show a decreased total lung capacity at 4.81 L, 82% predicted. All other lung volumes are reduced symmetrically. Diffusion capacity by carbon monoxide is normal at 92% predicted. The airway resistance is elevated. No previous pulmonary function tests were available for review. Impression: Mild restrictive ventilatory defect with preserved diffusing capacity. 03/03/18 1133 <Electronically signed by Wilder Fallon MD> Date Wilder Fallon MD CC: Louann Ruiz CONTROL CLERK AUDITING; Wilder Fallon MD Date Dictated: 03/03/18 1130 Date Transcribed: 03/03/18 113 Developmental Mathematics Instructor: DARLENE Signed XR CHEST 1 VIEW Observed: 03/01/2018 Status: F Source: [employer] 10:44 PM [facility] REPOSITORY ORIGINAL XR CHEST 1 VIEW CLINICAL STATEMENT: Chest pain. COMPARISON: None FINDINGS: The heart size is normal. The cardia mediastinal contours are normal. There is diffuse decrease in interstitial prominence, greater on the RIGHT. There is patchy consolidation in the RIGHT lung base. No pneumothorax or pleural effusion is seen. No acute osseous abnormality is identified. IMPRESSION: RIGHT basilar atelectasis versus consolidation. Follow-up to document resolution is recommended. Diffuse interstitial prominence can be seen with vascular congestion. I have personally reviewed the images of this examination and agree with the resident's findings and interpretation. Interpreted By: Tanja Segovia MD Preliminary Report By: Saray Villatoro DO Electronically Signed By: Tanja Segovia MD Dictated Date: 03/01/2018 10:48:20 PM Prelim Date: 03/01/2018 10:49:39 PM Sign Date: 03/01/2018 11:05:37 PM CBC Collected: 03/01/2018 Status: F Source: [facility] 9:52 PM [facility] REPOSITORY TYPE CODE TESTS RESULT OUT OF REFERENCE UNITS RANGE LAB WBC(LOINC) 4.60-10.80 10 3/mcL WBC 6.40 LAB RBCCT(LOINC 4.04-6.13 10 6/mcL ) RBC 4.97 LAB HGB(LOINC) 14.0-18.0 G/dL Hgb 15.7 LAB HCT(LOINC) 42.0-52.0 % Hct 45.0 LAB MCV(LOINC) 80.0-94.0 fL MCV 90.6 LAB MCH(LOINC) 27.0-31.2 pg High MCH 31.7 LAB MCHC(LOINC) 31.8-35.4 G/dL MCHC 35.0 LAB RDW(LOINC) 11.5-14.5 % RDW 13.0 LAB PLT(LOINC) 130-400 10 3/mcL Platelet 161 LAB MPV(LOINC) 7.4-10.4 fL MPV 9.2 Performed By: #### CBC, ADIFF, ANEU, TROP, GFR, BMP #### [place] [address] .AUTO DIFF Collected: 03/01/2018 Status: F Source: [facility] 9:52 [facility] REPOSITORY TYPE CODE TESTS RESULT OUT OF REFERENCE UNITS RANGE LAB NII(LOINC) 37.0-80.0 % Neutrophil % 70.0 LAB LYM(LOINC) 10.0-50.0 % Lymphocyte % 18.0 LAB MON(LOINC) 1.7-13.0 % Monocyte % 9.0 LAB EO(LOINC) 0.0-7.0 % Eosinophil % 2.3 LAB BAS(LOINC) 0.0-2.5 % Basophil % 0.7 LAB ABLYM(LOIN 0.77-3.85 10 3/mcL C) Lymphocyte, 1.10 Absolute LAB KENY(LOINC 0.15-1.00 10 3/mcL ) Monocyte, 0.60 Absolute LAB AEOS(LOINC 0.00-0.40 10 3/mcL ) Eosinophil, 0.10 Absolute LAB ABAS(LOINC 0.00-0.19 10 3/mcL ) Basophil, 0.00 Absolute Performed By: #### CBC, ADIFF, ANEU, TROP, GFR, BMP #### [address] [address] .NEUABS Collected: 03/01/2018 Status: F Source: [facility] 9:52 PM [facility] REPOSITORY TYPE CODE TESTS RESULT OUT OF REFERENCE UNITS RANGE LAB ANEU(LOINC) 2.85-6.16 10 3/mcL Neutrophil, 4.50 Absolute Performed By: #### CBC, ADIFF, ANEU, TROP, GFR, BMP #### [address] [address] TROP Collected: 03/01/2018 Status: F Source: [facility] 9:52 [facility] REPOSITORY TYPE CODE TESTS RESULT OUT OF REFERENCE UNITS RANGE LAB TROP(LOINC) 0.00-0.30 ng/mL Troponin <0.30 Result Comment: Below measuring range >=0.30 Consistent with cardiac damage, increased clinical risk and possibility of myocardial infarction. Serial measurements, clinical history, appropriate symptoms and/or ECG changes may help assess possibility of [place]. *Other non-acute coronary syndrome conditions such as CHF, myocarditis, pulmonary emboli, sepsis and cardiac surgery could result in myocardial damage and increased troponin levels. Performed By: #### CBC, ADIFF, ANEU, TROP, GFR, BMP #### [address] [address] .GFR Collected: 03/01/2018 Status: F Source: [facility] 9:52 [facility] REPOSITORY TYPE CODE TESTS RESULT OUT OF REFERENCE UNITS RANGE LAB GFRAA(LOINC ml/min/1.73 ) sqm GFR >60 Algerian Result Comment: GFR Population mean for , Non- Americans Ages 20-29 = 116 mL/min/1.73 sq.m. Ages 30-39 = 107 mL/min/1.73 sq.m. Ages 40-49 = 99 mL/min/1.73 sq.m. Ages 50-59 = 93 mL/min/1.73 sq.m. Ages 60-69 = 85 mL/min/1.73 sq.m. Ages 70+ = 75 mL/min/1.73 sq.m. Chronic Kidney Disease: Less than 60 mL/min/1.73 square meters End Stage Renal Disease: Less than 15 mL/min/1.73 square meters LAB GFRNO(LOINC) ml/min/1.73sqm GFR Non- >60 Result Comment: GFR Population mean for , Non- Americans Ages 20-29 = 116 mL/min/1.73 sq.m. Ages 30-39 = 107 mL/min/1.73 sq.m. Ages 40-49 = 99 mL/min/1.73 sq.m. Ages 50-59 = 93 mL/min/1.73 sq.m. Ages 60-69 = 85 mL/min/1.73 sq.m. Ages 70+ = 75 mL/min/1.73 sq.m. Chronic Kidney Disease: Less than 60 mL/min/1.73 square meters End Stage Renal Disease: Less than 15 mL/min/1.73 square meters Performed By: #### CBC, ADIFF, ANEU, TROP, GFR, BMP #### [address] [address] BMP Collected: 03/01/2018 Status: F Source: [facility] 9:52 PM [facility] REPOSITORY TYPE CODE TESTS RESULT OUT OF REFERENCE UNITS RANGE LAB GLU(LOINC) 70-105 mg/dL Glucose High Level 168 LAB NA(LOINC) 136-146 mEq/L Sodium Level 140 LAB K(LOINC) 3.5-5.1 mEq/L Potassium Level 4.2 LAB CL(LOINC) 98-107 mEq/L Chloride 103 LAB CO2(LOINC) 22-29 mEq/L CO2 High 30 LAB EBAL(LOINC mEq/L ) Electrolyte Balance 7.0 LAB BUN(LOINC) 7.0-18.0 mg/dL BUN 12.5 LAB CRE(LOINC) 0.6-1.2 mg/dL Creatinine Lvl (s) 0.9 LAB BC(LOINC) 7-27 ratio BUN/Creatinine 14 Ratio LAB CA(LOINC) 8.4-10.2 mg/dL Calcium Lvl 9.2 Performed By: #### CBC, ADIFF, ANEU, TROP, GFR, BMP #### [address] [address] UA Collected: 03/01/2018 Status: F Source: [facility] [facility] 9:52 PM [facility] REPOSITORY TYPE CODE TESTS RESULT OUT OF REFERENCE UNITS RANGE LAB SPCUA(LOIN C) UA Specimen Type Clean Catch LAB CLRUA(LOIN C) UA Color Yellow LAB APPUA(LOIN Clear C) UA Appear Clear LAB SGUA(LOINC ) UA Spec Grav 1.025 LAB GLUA(LOINC Negative mg/dL ) UA Glucose Negative LAB BILUA(LOIN Negative C) UA Bili Negative LAB KETUA(LOIN Negative mg/dL C) UA Ketones Negative LAB BLDUA(LOIN Negative C) UA Blood Negative LAB PHUA(LOINC ) UA pH 6.0 LAB PROUA(LOIN Negative mg/dL C) UA Protein Negative LAB UROUA(LOIN E.U./dL C) UA Urobilinogen 0.2 LAB NITUA(LOIN Negative C) UA Nitrite Negative LAB LEUUA(LOIN Negative C) UA Leuk Est Negative Performed By: #### UA, UAMICAO #### [place] [address] [place], [place] [address] .URINALYSIS MICROSCOPIC Collected: 03/01/2018 Status: F Source: [facility] ([facility]) 9:52 PM [facility] REPOSITORY TYPE CODE TESTS RESULT OUT OF REFERENCE UNITS RANGE LAB WBCUA(LOIN None Seen /hpf C) UA WBC None Seen LAB RBCUA(LOIN None Seen /hpf C) UA RBC None Seen LAB EPIUA(LOIN None Seen /hpf C) UA Squam Epithelial None Seen Performed By: #### UA, UAMICAO #### [facility] [address] [place], [place] [address] DOWNTIME REPORT Observed: 02/10/2018 Status: F Source: [place] 12:30 PM [facility] REPOSITORY [facility] Medical Records Department [address] [place] [id number] Downtime Report MR#: [id number] Acct: [id number] Name: YOLY SLAUGHTER Jay Rep #: [id number] : 1965 52 From: Zac Gonzalez PCP: Louann Ruiz NP Status: REG CLI This patient was seen during an EMR downtime January 24, 2018 - January 31, 2018. This patient may have a combination of paper and electronic documentation or all paper documentation. All documentation is viewable within the e-chart portion of [employer] for each patient visit. PULMONARY VISIT REPORT Observed: 02/09/2018 Status: F Source: OPAL 9:26 AM [facility] REPOSITORY [facility] [address] [place] [address] OFFICE VISIT Date of Service: 02/09/18 MR#: [id number] Acct: [id number] Name: YOLY SLAUGHTER Rep #: [id number] : 1965 Provider: Wilder Fallon MD Age/Sex: 52/M Location: [facility] Status: Signed Assessment AND Plan 1. Sarcoidosis of lung D86.0 Plan Tiffanie discussion with patient about the necessity of obtaining pulmonary function test and an eye exam as it relates to sarcoidosis. Patient understands that 30% of patients will have spontaneous resolution. CT scan of the chest shows no progression of lymphadenopathy or pulmonary nodules. If pulmonary function tests are within normal limits, equal monitoring with every [address] would be indicated. If pulmonary function tests are abnormal, initiation of prednisone may be required. Await results of pulmonary function test. Orders Orders: 2. Hypersomnia G47.10 Plan Unclear etiology at this time. Patient may have sleep phase disorder secondary to working third shift. Sleep hygiene was discussed in detail. Patient is not reporting any snoring at this time. Did discuss the possibility of obstructive sleep apnea leading to patient's current situation, but he is refusing any workup at this time. Sleep study in the future if patient is agreeable. Plan Detail Follow Up 3 Months (CSM) HPI 3 M FU: Chief Complaint: Follow-up test results Details: Patient is a 52-year-old male, currently in the care of Louann Ruiz, who presents for evaluation secondary to recent test results. Since last visit, patient denies any ER visits, hospitalizations or prednisone burst. Patient feels subjectively unchanged compared to previous. Patient does report that he had a cataract surgery on his left eye with significant improvement in his vision, but has had some complications with swelling behind his eye. Steroid injections were discussed, but have yet to be completed. Patient is unclear on whether he told them about his recent sarcoidosis diagnosis. Patient states that he did not complete his pulmonary function test as he has gotten that it was needed. Patient continues to report stability and overall condition. Patient can get dyspneic with exertion, [...] approximately 4 AM and that is why I am so tired today. Patient denies any [...] PO QDAY tab 10/05/17 [History Confirmed 02/09/18] [facility] Medical History Ejaculation blood (Acute) Hematuria (Acute) [...] stool, loose stool, constipation or other Genitourinary: Negative blood in [...] ill appearing Head Head: Positive normocephalic and atraumatic; negative cyanosis of lips/distal nose, frontal sinus tenderness or maxillary sinus tenderness Eyes Eye: Positive clear conjunctiva; negative nystagmus, scleral abnormality or cataract present Ears Ear: Positive hearing normal and external ears normal; negative hard of hearing Nose Nose: Positive external nose normal, septum normal and no nasal discharge; negative epistaxis or nasal polyp Mouth Mouth: Positive oral mucosae normal, no lesions and [...] wheezes, rhonchi, rales, use of accessory muscles, wheeze present on forced exhalation or dullness to [...] understands questions, No normal concentration (Decreased concentration and dozing off during appointment), Yes cooperative, No normal cognition, Yes normal coordination Lymph Lymphatic: No lymphadenopathy Psych Appearance: Positive grossly normal Mental Status: Positive mental status grossly normal Mood: Positive congruent mood Affect: Positive flat Coding Level of Care Code Off vis,est,level 3 Diagnoses Sarcoidosis of lung D86.0 Hypersomnia G47.10 02/09/18 0926 <Electronically signed by Wilder Fallon MD> Date Wilder Fallon MD Cosigner Signature: Date (if applicable) CC: Louann Ruiz NP CHEST WITH CONTRAST Observed: 01/26/2018 Status: F Source: [place] 12:30 PM [facility] REPOSITORY [facility] Imaging Services [address] [place] [address] Chest WITH Contrast MR#: [id number] Acct: [id number] Name: YOLY SLAUGHTER Rep #: [id number] : 1965 M 52 From: Corey Fofana MD PCP: Louann Ruiz NP Status: REG CLI Study: Chest WITH Contrast Date of Exam: 01/24/18 Exam# [id number] Ordering Dr: Wilder Fallon MD STUDY: CT CHEST WITH CONTRAST REASON FOR EXAM: Male, 52 years old. History of sarcoidosis and diabetes. RADIATION DOSAGE (If Supplied By Facility): CTDIvol = ( 14.15 ) mGy, DLP = ( 523.85 ) mGycm TECHNIQUE: Transaxial imaging was performed following intravenous administration of 100ml ml of Isovue 300 contrast material. Individualized dose optimization techniques were used for this CT. COMPARISON: 09/28/2017. FINDINGS: Again are multiple small pulmonary nodules bilaterally, the largest measures about 6 mm unchanged in size and number since previous examination. There is mild stranding/scarring in the right upper lobe. There is no demonstrated pleural abnormality. Normal heart and pericardium. Again are enlarged nodes in the aortopulmonic window, right paratracheal region, anterior mediastinum and subcarinal regions unchanged since the prior examination. Enlarged bilateral hilar nodes are again seen. Normal enhanced pulmonary arteries. Normal aorta arch and descending thoracic aorta. There are mild degenerative changes in the thoracic spine. There is no demonstrated abnormality of the visualized upper abdomen. CT/Chest WITH Contrast IMPRESSION: Multiple small pulmonary nodules unchanged in size or number since the previous examination. Persistent mediastinal and bilateral hilar adenopathy. Mild scarring in the right upper lobe. No new infiltrate is seen. Electronically Signed: Corey Fofana MD at 15:57 EDT Tel , Service support , CC: Louann Ruiz NP; Wilder Fallon MD Developmental Mathematics Instructor: Signed PULMONARY VISIT REPORT Observed: 11/10/2017 Status: F Source: [place] 6:11 PM [facility] REPOSITORY [facility] [address] [place] [address] OFFICE VISIT Date of Service: 11/09/17 MR#: [id number] Acct: [id number] Name: YOLY SLAUGHTER Rep #: [id number] : 1965 Provider: Wilder Fallon MD Age/Sex: 52/M Location: [facility] Status: Signed Assessment AND Plan 1. Sarcoidosis of lung D86.0 Plan Patient with multiple biopsies of mediastinal and hilar lymphadenopathy showing only lymphocytes. There was a granuloma noted on one biopsy, which would be suggestive of sarcoidosis. Stressed to the patient that therapy may not be necessary, but normal pulmonary function test would be necessary. Also stressed to the patient importance of an ophthalmology evaluation. Patient refused referral at this time secondary to previous referral being placed. Will obtain a complete pulmonary function test now. We will also obtain a CT scan with contrast in 3 months to see if mediastinal lymphadenopathy is improved. Patient understands that sarcoidosis is a systemic disease with multiple manifestations. Patient may require treatment with prednisone therapy. Obtain complete pulmonary function test, CT with contrast and ophthalmology evaluation Orders Orders: 2. Hypersomnia G47.10 Plan Discussed with patient about sleep hygiene. Patient currently with very poor sleep hygiene given that he sleeping on a couch at random times. Patient states that he plans on buying a bed to see if this will improve. Patient would likely benefit from a polysomnogram for evaluation of obstructive sleep apnea. If negative, narcolepsy would be a possibility. Patient is requesting evaluation of the lung prior to any sleep study. Sleep study in the future if patient agreeable 3. Blurry vision, bilateral H53.8 Plan Patient is reporting bilateral blurry vision. Visual acuity was not checked, but patient does not appear to have visual field deficits on physical exam. Stressed to the patient that this could be a sign of diabetic retinopathy versus sarcoidosis. Patient was told of the importance of an ophthalmology evaluation as soon as possible. Patient voiced understanding, but refused referral given that he had a previous referral. Await ophthalmology recommendations. Plan Detail Follow Up 3 Months ([facility]) HPI EBUS RESULTS: Chief Complaint: Test results Details: Patient is a 52-year-old male, currently in the care of Louann Ruiz, who presents for evaluation secondary to recent test results. Since last visit, patient has undergone endobronchial ultrasound with 17 biopsies of mediastinal lymphadenopathy. Significant mediastinal and hilar lymphadenopathy were confirmed with ultrasound during the procedure. Patient states no complications of the procedure at this time. Patient continues to report significant difficulty with falling asleep at night. Patient estimates that he has been sleeping only 4-5 hours at most at night. Patient has no constitutional symptoms such as fever, chills, nausea, vomiting, unexplained weight loss, hemoptysis, melena or hematochezia. Patient does report blurring vision, but states that he has not seen the building architect as recommended by his diabetes physician. Patient does report that he is taken trazodone to help with sleeping. Patient reports some effect with 25 mg, but has taken up to 150 mg with significant sleep. Patient is unaware if he snores. Patient reports it is highly variable when he falls asleep. Patient does report that he is currently sleeping on a couch. Personally reviewed with the patient EBUS with pathology report (10/29/2017): 17 lymph node biopsies were obtained at 4 different lymph node stations. All showed lymphocytes with no malignant cells. 11 L Station did have a focal area of granuloma formation Flow cytometry (10/29/2017): No monoclonal band noted with a CD4 to CD8 ratio of 0.5-1 Intake Vital Signs11/09/17 Height 5 ft 6.5 in 11/09/17 Weight: 77.564 kg Intake Visit Reasons: EBUS RESULTS Chief Complaint: Abnormal imaging Is patient in pain?: No Allergies No Known Allergies Allergy (Verified 11/09/17 10:52) Medications metformin 500 mg tablet 500 mg PO QDAY tab 10/05/17 [History Confirmed 11/09/17] [facility] Medical History Ejaculation blood (Acute) Hematuria (Acute) [...] marijuana Review of Systems Const CONSTITUTIONAL: Positive daytime sleepiness and [...] chest congestion, chest tightness, pain on inspiration, inhalers, increase use of rescue inhalers, snoring, apnea or other Gastro Gastrointestional: Negative bloody stools, change in appetite, difficulty swallowing, reflux, hematemesis, melena stool, loose stool, constipation or other Genitourinary: Negative blood in [...] normocephalic and atraumatic; negative cyanosis of lips/distal nose, frontal sinus tenderness or maxillary sinus tenderness Eyes Eye: Positive clear conjunctiva; negative nystagmus, scleral abnormality or cataract present Ears Ear: Positive hearing normal and external ears normal; negative hard of hearing Nose Nose: Positive external nose normal, septum normal and no nasal discharge; negative epistaxis or nasal polyp Mouth Mouth: Positive oral mucosae normal, poor dentition, crowded posterior oropharynx and malodorous [...] Skin Exam: Positive intact; negative rash, lesion, ulcers or erythema Pulses Pulse: Yes radial pulses present Extremities Extremities: Yes capillary refill normal, No clubbing, No cyanosis, No edema, No stasis dermatitis Neuro Neurologic: Yes conversant, Yes no focal neuro deficits, Yes cooperative, Yes normal cognition, Yes normal coordination Lymph Lymphatic: No lymphadenopathy, No tenderness, No cervical adenopathy, No axillary adenopathy Psych Appearance: Positive grossly normal and eye contact Mental Status: Positive mental status grossly normal Mood: Positive congruent mood Affect: Positive normal affect Coding Level of Care Code Off vis,est,level 4 Diagnoses Sarcoidosis of lung D86.0 Hypersomnia G47.10 Blurry vision, bilateral H53.8 11/10/17 1811 <Electronically signed by Wilder Fallon MD> Date Wilder Fallon MD Cosigner Signature: Date (if applicable) CC: Louann Ruiz NP OPERATIVE REPORT Observed: 10/29/2017 Status: F Source: [place] 2:13 PM [facility] REPOSITORY [facility] Medical Records Department [address] [place] [address] Operative Report 10/29/17 1340 MR#: [id number] Acct: [id number] Name: YOLY SLAUGHTER Rep #: [id number] : 1965 52 From: Yaya Kaur DO PCP: Louann Ruiz NP Status: REG [facility] [place] Location: [place] [address] Operative Report Date of Procedure: 10/29/17 BRONCHOSCOPY (EBUS) PROCEDURE REPORT DATE OF SERVICE: October 29, 2017 BRIEF HISTORY: The patient is a 52-year-old male who follows with Dr. Fallon on an outpatient basis who is referred to me for evaluation of mediastinal and hilar lymphadenopathy. Contrasted chest CT completed in August 2017 revealed multiple bilateral pulmonary nodules and extensive mediastinal and hilar lymphadenopathy. Subsequent PET scan was performed and revealed hypermetabolic areas in the aforementioned regions. Therefore, it was determined that the patient should undergo mediastinal lymph node sampling for evaluation of potential malignancy, granulomatous disease and/or occult infectious process. PROCEDURE: Bronchoscopy with endoscopic endobronchial ultrasound (EBUS), transbronchial needle aspiration INDICATION: Mediastinal and hilar lymphadenopathy PHYSICIAN: Yaya Kaur DO ANESTHETIC: This procedure was completed under the supervision of anesthesia. Please refer to their documentation accordingly. COMPLICATIONS: No immediate complications noted. DESCRIPTION OF PROCEDURE: A history and physical has been performed. Please see outpatient pulmonary clinic note. The patient's medications and allergies have been reviewed. The risks and benefits of the procedure and sedation options and risks were discussed with the patient at length. All questions were answered and informed consent was obtained. The patient's identification and proposed procedure were verified prior to the procedure by the physician. ASA GRADE ASSESSMENT: II After obtaining informed consent, the bronchoscope was introduced through the mouth, via laryngeal mask airway and advanced to the tracheal bronchial tree bilaterally. The [...] 4 different lymph node stations. Transbronchial needle aspiration was performed at lymph node station 7 (Subcarina) using an Olympus EBUS-TBNA 19-gauge needle and sent for routine cytology. The procedure was guided by ultrasound. 6 samples were obtained. Transbronchial needle aspiration was then performed at lymph node station 4R (Right Paratracheal) using an Olympus EBUS-TBNA 19-gauge needle and sent for routine cytology. The procedure was guided by ultrasound. 2 samples were obtained. Transbronchial needle aspiration was then performed at lymph node station 11L (Left Hilar) using an Olympus EBUS-TBNA 19-gauge needle and sent for routine cytology. The procedure was guided by ultrasound. 2 samples were obtained. Transbronchial needle aspiration was then performed at lymph node station 10R (Right Hilar) using an Olympus EBUS-TBNA 19-gauge needle and sent for routine cytology. The procedure was guided by ultrasound. 3 samples were obtained. Rapid on-site evaluation (CORRY): Preliminary cytology was inconclusive. Final pathology results are pending. Following this, the EBUS endoscope was subsequently withdrawn from the patient's airway through the LMA. A conventional bronchoscope was then reinserted into the patient's airway, at which time, any retained secretions and/or blood was cleared. The bronchoscope was then withdrawn without complication. The patient was then transferred to the PACU, where they recovered in the usual fashion. IMPRESSION: 1. Extensive mediastinal and hilar lymphadenopathy 2. Transbronchial needle aspiration was completed at lymph node station 7 (subcarinal), 4R (right paratracheal), 11L (left hilar), 10R (right hilar) 3. Samples will be sent for cytology, flow cytometry, AFB and cultures. RECOMMENDATIONS: 1. Await finalized pathology results 2. Follow up with the pulmonary medicine clinic as scheduled Code Visit 9xxxx: Other Procedure See Report 10/29/17 1413 <Electronically signed by Yaya Kaur DO> Date Yaya Kaur DO CC: Louann Ruiz CONTROL CLERK AUDITING; Yaya Kaur D.O. Signed BEDSIDE GLUCOSE Collected: 10/29/2017 Status: F Source: [place] 11:54 AM [facility] REPOSITORY TYPE CODE TESTS RESULT OUT OF REFERENCE UNITS RANGE LAB L501.080 70-110 mg/dL High BEDSIDE GLU 140 Result Comment: MANAGEMENT OF PATIENT CARE PER NURSING PROTOCOL Performed By: #### L501.080 #### [facility] Point of Care [address] [place] [address] ASPIRATION (SLIDES Observed: 10/29/2017 Status: F Source: OPAL ONLY) 12:00 AM [facility] REPOSITORY Patient: YOLY SLAUGHTER : 1965 (52/M) Acct Num: [id number] Phys: Yaya Kaur D.O. Unit Num: [id number] Loc: EN Specimen: [id number] Received: 11/01/17541 Spec Type: ASPIRATION TISSUES TISSUES: A. Lung, NOS B. Lung, [...] bronchial cells and blood. C. EBUS, FNA, site 7, aspiration #3: Nondiagnostic. No lymphocytes. Blood present. D. EBUS, FNA, site 7, aspiration #4: Nondiagnostic. No lymphocytes. Only blood present. E. EBUS, FNA, site 7, aspiration #5: Negative for malignancy. Few lymphocytes present. F. EBUS, FNA, site 7, aspiration #6: Nondiagnostic. No lymphocytes. Blood present. G. EBUS, FNA, site 4R, aspiration #7: Nondiagnostic. No lymphocytes. Blood present. H. EBUS, FNA, site 4R, aspiration #8: Nondiagnostic. No lymphocytes. Reactive bronchial cells I. EBUS, FNA, site 11L, aspiration #9: Nondiagnostic. Reactive bronchial and WBC from blood. J. EBUS, FNA, site 11L, aspiration #10: Nondiagnostic. No lymphocytes. Blood only. K. EBUS, FNA, site 10R, aspiration #11: Nondiagnostic. No lymphocytes. Few reactive bronchial cells. L. EBUS, FNA, site 10R, aspiration #12: Nondiagnostic. No lymphocytes. M. EBUS, FNA, site 10R, aspiration #13: Nondiagnostic. No lymphocytes. Blood. Case has been reviewed in consultation [...] and designated EBUS, FNA, site 7, aspiration #2. The specimen consists of two smears submitted for immediate cytologic evaluation (wet read). C - Received labeled with the patient s name, and designated EBUS, FNA, site 7, aspiration #3. The specimen consists of two smears submitted for immediate cytologic evaluation (wet read). D - Received labeled with the patient s name, and designated EBUS, FNA, site 7, aspiration #4. The specimen consists of two smears submitted for immediate cytologic evaluation (wet read). E - Received labeled with the patient s name, and designated EBUS, FNA, site 7, aspiration #5. The specimen consists of two smears submitted for immediate cytologic evaluation (wet read). F - Received labeled with the patient s name, and designated EBUS, FNA, site 7, aspiration #6. The specimen consists of two smears submitted for immediate cytologic evaluation (wet read). G - Received labeled with the patient s name, and designated EBUS, FNA, site 4R, aspiration #7. The specimen consists of two smears submitted for immediate cytologic evaluation (wet read). H - Received labeled with the patient s name, and designated EBUS, FNA, site 4R, aspiration #8. The specimen consists of two smears submitted [...] designated EBUS, FNA, site 10R, aspiration #11. The specimen consists of two smears submitted for immediate cytologic evaluation (wet read). L - Received labeled with the patient s name, and designated EBUS, FNA, site 10R, aspiration #12. The specimen consists of two smears submitted for immediate cytologic evaluation (wet read). M - Received labeled with the patient s name, and designated EBUS, FNA, site 10R, aspiration #13. The specimen consists of two smears submitted for immediate cytologic evaluation (wet read). N Received in RPMI and labeled with the patient s name, and designated TBNA, site 7. Submitted for cytology preparation including cell block. A portion of the specimen is also submitted for flow cytometry. 0 - Received in RPMI and labeled with the patient s name, and designated TBNA, site 4R. Submitted for cytology preparation including cell block. A portion of the specimen is also submitted for flow cytometry. P - Received in RPMI and labeled with the patient s name, and designated TBNA, site 11L. Submitted for cytology preparation including cell block. A portion of the specimen is also submitted for flow cytometry. Q - Received in RPMI and labeled with the patient s name, and designated TBNA, site 10R. Submitted for cytology preparation including cell block. A portion of the specimen is also submitted for flow cytometry. / FA:efra 10/29/17 TC:5 CPT: 90484 x4, 34514 x4, 21673 x9, 45177 x4, 03822 x2 CYTOLOGY STUDY Slides are reviewed. N. The specimen consists only of a few small lymphocytes. O. The specimen only shows blood. P. The specimen consists of lymphocytes and focal area suggestive of granuloma formation. Q. The specimen predominantly consists of blood and one minute fragment of cartilage. DIAGNOSIS CYTOLOGY A. EBUS, FNA, site 7, aspiration #1: Adequate for evaluation. Negative for malignant cells or granulomas. Lymphocytes are present. B. EBUS, FNA, site 7, aspiration #2: Adequate for evaluation. Negative for malignant cells or granulomas. Lymphocytes and respiratory cells present. C. EBUS, FNA, site 7, aspiration #3: Only a few lymphocytes are present. Negative for malignant cells. D. EBUS, FNA, site 7, aspiration #4: Only a few lymphocytes are present. Negative for malignant cells. E. EBUS, FNA, site 7, aspiration #5: Adequate for evaluation. Negative for malignant cells or granulomas. Lymphocytes are present. F. EBUS, FNA, site 7, aspiration #6: Only a few lymphocytes are present. Negative for malignant cells. G. EBUS, FNA, site 4R, aspiration #7: Nondiagnostic specimen. Rare respiratory epithelial cells and lymphocytes are present. H. EBUS, FNA, site 4R, aspiration #8: Nondiagnostic specimen. Rare respiratory epithelial cells and lymphocytes are present. I. EBUS, FNA, site 11L, aspiration #9: Adequate for evaluation. Negative for malignant cells or granuloma. Respiratory epithelial cells and lymphocytes are present. J. EBUS, FNA, site 11L, aspiration #10: Nondiagnostic specimen. Rare respiratory epithelial cells and lymphocytes are present. K. EBUS, FNA, site 10R, aspiration #11: Nondiagnostic specimen. Rare respiratory epithelial cells and lymphocytes are present. L. EBUS, FNA, site 10R, aspiration #12: Nondiagnostic specimen. Rare lymphocytes are noted. M. EBUS, FNA, site 10R, aspiration #13: Nondiagnostic specimen. Respiratory epithelial cells and rare lymphocytes are noted. N. TBNA, site 7, fluid (cell block): Negative for malignant cells or lymphoma. Flow cytometry shows no evidence of B-cell or T-cell lymphoma. See cytology study. O. TBNA, site 4R, fluid (cell block): Negative for malignant cells. Flow cytometry shows no phenotypic evidence of lymphoma. See cytology study. P. TBNA, site 11L, fluid (cell block): Focal area suggestive of granuloma formation. Special stains for acid fast bacilli and fungi are negative for organisms; matched controls are appropriate. Flow cytometry shows no evidence of B-cell or T-cell lymphoma. See cytology study. Q. TBNA, site 10R, fluid (cell block): Negative for malignant cells. Flow cytometry shows no evidence of B-cell or T-cell lymphoma. See cytology study. SJ:efra 11/01/17 HEADER OPERATION: Bronchoscopy with endoscopic endobronchial ultrasound (EBUS), transbronchial needle aspiration PRE-OP DIAGNOSIS: Mediastinal and hilar lymphadenopathy TISSUE SUBMITTED: A-F EBUS, FNA, site 7, G-H EBUS, FNA, site 4R, I AND J EBUS, FNA, site 11L, K-M EBUS, FNA site 10R, N TBNA site 7, O - TBNA site 4R , P - TBNA site 11L, Q - TBNA site 10R Signed Dylan Miller 11/02/17 <signature on file> Performed By: #### PASPS #### [facility] [address] [place], [address] CBC W/DIFF, AUTOMATED Collected: 10/26/2017 Status: F Source: [place]EN[place] 12:00 PM [facility] REPOSITORY TYPE CODE TESTS RESULT OUT OF RANGE REFERENCE UNITS LAB L100.1000 4.4-11.0 K/mm3 Normal WBC 5.3 LAB L100.1200 4.6-6.2 M/mm3 Normal RBC 4.94 LAB L100.1300 13.0-16.5 g/dl Normal HGB 15.7 LAB L100.1400 40-54 % Normal HCT 46.1 LAB L100.1500 80-94 fL Normal MCV 93.3 LAB L100.1600 27.0-32.0 pg Normal MCH 31.8 LAB L100.1700 32-36 g/gl Normal MCHC 34.1 LAB L100.1810 11.6-14.6 % Normal RDW CV 12.8 LAB L100.1820 35.1-43.9 fl Normal RDW SD 42.8 LAB L100.1900 150-450 K/mm3 Normal PLT 194 LAB L100.2000 6.2-12.0 fl Normal MPV 11.4 LAB L100.2100 47-70 % Normal NEUT% 62.0 LAB L100.2200 19-41 % Normal LY% 24.0 LAB L100.2300 0-10 % High MONO% 10.9 LAB L100.2400 0-5 % Normal EO% 2.1 LAB L100.2500 0-1 % Normal BASO% 0.4 LAB L100.2550 0.0-0.9 % Normal IM GRAN % 0.600 Result Comment: IG% - Immature Granulocytes (promyelocytes, myelocytes and metamyelocytes) > 1% indicates that a LEFT SHIFT is Present. LAB L100.2620 2.0-7.7 X10 3/uL Normal Absolute Neut 3.3 LAB L100.2720 0.83-4.51 X10 3/ul Normal Absolute Lymph 1.28 Performed By: #### L100.0100 #### [facility] [address] [place], [place], [address] PROTHROMBIN TIME W/INR Collected: 10/26/2017 Status: F Source: BLENHE[place] 12:00 PM [facility] REPOSITORY TYPE CODE TESTS RESULT OUT OF RANGE REFERENCE UNITS LAB L300.4150 11.7-14.9 SECONDS Normal PROTIME 13.6 LAB L300.4200 Normal INR 1.0 Performed By: #### L300.3900, L300.4310 #### [facility] [address] [place], [place], [address] PARTIAL THROMBOPLAST Collected: 10/26/2017 Status: F Source: OPAL TIME 12:00 PM [facility] REPOSITORY TYPE CODE TESTS RESULT OUT OF RANGE REFERENCE UNITS LAB L300.4310 24.1-36.2 Seconds Normal PTT 31.7 Performed By: #### L300.3900, L300.4310 #### [place] [facility] [address] [place], [address] PULMONARY VISIT REPORT Observed: 10/07/2017 Status: F Source: OPAL 5:42 AM [facility] REPOSITORY [facility] [place] [address] [place] [address] OFFICE VISIT Date of Service: 10/06/17 MR#: [id number] Acct: [id number] Name: YOLY SLAUGHTER Rep #: [id number] : 1965 Provider: Wilder Fallon MD Age/Sex: 52/M Location: [facility] Status: Signed with Addenda ADDENDUM by Wilder Fallon MD on 10/07/17 at 0541 Addendum entered and electronically signed by Wilder Fallon MD 10/07/17 05:41: Multiple phone calls and discussion yesterday about patient's situation. General surgery feels that this would better be addressed by cardiothoracic surgery given the location of the supraclavicular node. After review with Dr. Kaur, it was decided to proceed with endobronchial ultrasound procedure as previously discussed. This will not offer as good as of lymph node architecture, but may save patient surgical intervention found to have sarcoidosis or small cell lung cancer. 10/07/17 0542 <Electronically signed by Wilder Fallon MD> Date Wilder Fallon MD cc: Louann Ruiz CONTROL CLERK AUDITING * Signed Assessment AND Plan 1. Dyspnea on exertion R06.09 Plan Patient does have a history of THC use, but denies any tobacco. Unclear if patient has some element of sarcoidosis with mediastinal lymphadenopathy. Will obtain complete pulmonary function test for evaluation of dyspnea and for establishment of a baseline. No new medications at this time, but may need beta agonist bronchodilator response. Obtain complete PFT. Orders Orders: 2. Mediastinal lymphadenopathy R59.0 Plan Patient with significant hypermetabolic mediastinal lymphadenopathy and no obvious [...] ultrasound. Did obtain informed consent if endobronchial ultrasound is necessary. Referral to surgery for possible supraclavicular lymphadenectomy. Proceed with endobronchial ultrasound if unable to obtain. Orders Orders: 3. Supraclavicular adenopathy R59.0 Plan Patient does have a hypermetabolic lymph [...] Orders Orders: Follow Up 6 Weeks ([facility]) HPI CARMEN ruiz referral: Chief Complaint: Abnormal imaging Details: Patient is a 52-year-old male, currently in the care of Louann Ruiz, who presents for evaluation secondary to abnormal [...] significant hemoptysis, chest pain, epistaxis or sinus congestion. Patient is not aware of any [...] (09/27/2017): CT images show significant uptake of mediastinal lymphadenopathy on both sides and a supraclavicular node, all consistent with possible malignancy. No obvious infiltrates are noted. Peripheral nodules are not hypermetabolic. CT chest (09/13/2017): Significant mediastinal lymphadenopathy without obvious infiltrate Intake Vital Signs10/06/17 Height 5 ft 5 in 10/06/17 Weight: 79.379 kg Intake Visit Reasons: CONTROL CLERK AUDITING ciesa referral Accompanied by: Self Allergies No Known Allergies Allergy (Verified 10/06/17 06:50) Medications metformin 500 mg tablet 500 mg PO QDAY tab 10/05/17 [History Confirmed 10/06/17] [facility] Medical History Ejaculation blood (Acute) Hematuria (Acute) [...] negative body pain, neck pain or other Skin/Breast Skin/Breast: [...] normocephalic and atraumatic; negative cyanosis of lips/distal nose, frontal sinus [...] diminished, wheeze present on forced exhalation or dullness to [...] Yes normal coordination, Yes normal concentration Lymph Lymphatic: No lymphadenopathy Psych Appearance: Positive grossly normal Mental Status: Positive mental status grossly normal Mood: Positive congruent mood Affect: Positive normal affect Coding Level of Care Code Off vis,new,level 5 Diagnoses Dyspnea on exertion R06.09 Dyspnea type: dyspnea on exertion Mediastinal lymphadenopathy R59.0 Supraclavicular adenopathy R59.0 Time Spent (min) 65 Comment Greater than 50% in [id number] conversation discussing situation. Multiple phone calls 10/07/17 0570 <Electronically signed by Wilder Fallon MD> Date Wilder Fallon MD Cosigner Signature: Date (if applicable) CC: Louann Ruiz NP CYTOLOGY, BODY FLUID / Collected: 09/27/2017 Status: F Source: OPAL CSF 3:30 PM [facility] REPOSITORY Order Comment: Specimen Source: URINE TYPE CODE TESTS RESULT OUT OF RANGE REFERENCE UNITS LAB L350.1000 SEE Normal PATHOLOGY CYTOLOGY,BF REPORT /CSF Result Comment: Specimen submitted to Anatomical Pathology Department for testing. Performed By: #### L350.1000 #### [facility] [address] [place], [address] CYTOSPIN ON FLUID Observed: 09/27/2017 Status: F Source: OPAL 12:00 AM [facility] REPOSITORY Patient: YOLY SLAUGHTER : 1965 (52/M) Acct Num: [id number] Phys: Kimberly JONES,Saurabh Unit Num: [id number] Loc: LABSPEC Specimen: [id number] Received: 09/27/17 - 0 Spec Type: CYSPIN FL TISSUES TISSUES: Urine CYTOLOGY GROSS Received is 70 ml of clear gold fluid labeled with the patient's name and and designated per the requisition as urine. Submitted for cytology preparation. 09/28/17 TC:2 CPT: 69617 CYTOLOGY STUDY Slides are reviewed. The specimen consists of neutrophils, red blood cells and a few benign urothelial cells. DIAGNOSIS CYTOLOGY Urine for cytology (cytospin): Negative for malignant cells. Acute inflammation. SJ:efra 09/29/17 HEADER OPERATION: Not noted PRE-OP DIAGNOSIS: Hematuria TISSUE SUBMITTED: Urine for cytology Signed Dylan Miller 09/29/17 <signature on file> Performed By: #### PCYSPIN #### [facility] [address] [place], [address] PET/CT TUMOR BASE Observed: 09/24/2017 Status: F Source: OPAL -THIGH INIT 1:22 PM [facility] REPOSITORY [facility] Imaging Services [address] [place] [address] PET/CT Tumor Base -Thigh Init MR#: [id number] Acct: [id number] Name: YOLY SLAUGHTER Rep #: [id number] : 1965 M 52 From: Carlos Yadav PCP: Louann Ruiz NP Status: REG CLI Study: PET/CT Tumor Base -Thigh Init Date of Exam: 09/27/17 Exam# [id number] Ordering Dr: Sera Adrian CONTROL CLERK AUDITING-C EXAMINATION: FDG PET CT INDICATIONS: A 52-year-old male with reported history of pulmonary nodularity, mediastinal, thoracic perihilar adenopathy. COMPARISON EXAMINATION: CT of the chest report dated 09/13/17, CT of the abdomen and pelvis report dated 08/30/17. INDEX LESION SIZE SUV INTERPRETATION Multifocal superior-subcarinal mediastinum, bilateral thoracic perihilum 29.9 mm largest (frame 221) 11.4 (max) Fulfills quantitative criteria for viable neoplasm Mid abdominal retroperitoneum, aliza hepatis soft tissue adenopathy 14.2 mm largest (frame 166) 7.6 (max) Fulfills quantitative criteria for viable neoplasm Right supraclavicular region-right anterior neck 14.3 mm (frame 249) 5.5 Fulfills quantitative criteria for viable neoplasm TECHNIQUE: Following the intravenous administration of 13.5 mCi of F-18 deoxyglucose via the right hand, multiplanar image acquisitions of the neck, chest, abdomen and pelvis to level of mid thigh, obtained at one hour post radiopharmaceutical administration contemporaneously interpreted with the current CT of the neck, chest, abdomen and pelvis to level of mid thigh, dated 09/27/[address] of the chest report dated 09/13/17, CT of the abdomen and pelvis report dated 08/30/17 reveal: SERUM GLUCOSE LEVEL: 145 mg/dl. HEIGHT: 66 inches. WEIGHT: 169 lbs. FINDINGS: 1. Multifocal increased glucose concentration extends from the superior to subcarinal mediastinum, aorticopulmonary window and right- left thoracic perihilar regions generating a calculated maximum standard uptake value of 11.4. The maximal axial diameter of the largest individual hypermetabolic soft tissue density on review of CT of the thorax dated 09/27/17 is approximately 29.9 mm (transverse). Meticulous attention paid to the co-registered data sets of the thorax demonstrate apparent [...] density on review of CT of the abdomen dated 09/27/17 is 15.2 mm (AP). 3. [...] and preserved glucose metabolism noted in the visualized portion of the frontal, occipital, temporal and [...] are as follows. CHEST: There are no parenchymal densities-nodules demonstrated in the right-left hemithorax manifesting quantitatively significant, discernible increased glucose metabolism. Right-left axillary soft tissue densities with fatty hilus formation are non-glucose avid. ABDOMEN AND PELVIS: The gallbladder is surgically absent. Pelvic arterial calcification is observed. Fat-containing bilateral inguinal hernias are noted. Right-left inguinal soft tissue densities are ametabolic. Calcification is defined in the left kidney. Colonic diverticulosis is demonstrated. SKELETAL: Degenerative changes defined in the cervical, thoracic and lumbar spine demonstrate no evidence for glucose hypermetabolism. PET/PET/CT Tumor Base -Thigh Init IMPRESSION: 1. Increased glucose metabolism multifocally apparent in the superior-subcarinal mediastinum, bilateral thoracic perihilum fulfills quantitative criteria for viable neoplasm. Histopathologic investigation is recommended. (Marisela et al, Journal of Clinical Oncology 16:2142, 1998. Tierney et al, Annals of Internal Medicine, 138:724, 2003). 2. Enhanced glucose concentration observed in the left mid abdominal retroperitoneum and right upper abdomen, aliza hepatis corresponding to soft tissue lymph nodes, lymphadenopathy fulfills quantitative criteria for viable neoplasm. 3. The increase in glucose concentration visualized in the right anterior neck, supraclavicular region fulfills quantitative criteria for viable neoplasm. Electronic Signature Carlos Yadav D.O. Electronically Signed: Carlos Yadav DO at 22:59 EST Tel , Service support , CC: Louann Ruiz NP; GUERLINE Adrian Developmental Mathematics Instructor: Signed ALLERGIES ALLERGIES DATE TYPE / CODE NAME / CODE REACTION SEVERITY SOURCE 06/03/2018 Drug No Known Unknown [facility] Allergy/416 Allergies/N48611 Hospital 459544(SNOM 0388(RXNORM) Repository ED CT) Drug NO KNOWN [facility] Class/31014 ALLERGIES [place] 1003(SNOMED Repository CT) ENCOUNTERS ENCOUNTERS ADMIT/DISCHARGE ACCOUNT NUMBER ADMITTING ENCOUNTER LOCATION SOURCE CLASS 09/13/2018 [id number] Ambulatory Building:[facility] Practices Repository 09/12/2018 [id number] Ambulatory [facility] ding:HHLAB Repository 09/07/2018/09/09/19 [id number] Ambulatory [address] Repository 09/06/2018/09/10/19 [id number] ANDRES [place] Inpatient [place] [address] () Encounter Clinic [place] Repository 09/06/2018/09/07/19 [id number] Ambulatory [address] [place] Repository 08/26/2018/08/26/19 [id number] Ambulatory BBuilding:[facility] [place] [address] [place] [address] Repository 08/18/2018 [id number] Ambulatory [facility] ding:MRI Repository 06/10/2018/06/10/20 [id number] Ambulatory [address] Repository 06/06/2018 [id number] Ambulatory [facility] ding:HPRAD Repository 06/03/2018/06/03/20 [id number] Emergency [address] ding:ED Repository 06/03/2018/06/04/20 [id number] Ambulatory [address] [place] Repository 05/18/2018/05/20/20 [id number] BELKYS, Inpatient [address] Repository 05/17/2018/05/17/20 [id number] Ambulatory [address] [place] Repository 05/17/2018/05/23/20 [id number] Ambulatory [address] [place] Repository 05/17/2018/05/18/20 [id number] Ambulatory [address] [place] Repository 05/17/2018/05/17/20 [id number] Ambulatory [address] [place] Repository 05/17/2018/05/17/20 [id number] Ambulatory [address] [place] Repository 05/17/2018/05/17/20 [id number] Ambulatory [address] Repository 05/17/2018/05/18/20 [id number] Ambulatory [address] Repository 05/17/2018/05/17/20 [id number] Ambulatory [address] Repository 05/09/2018/05/09/20 [id number] Ambulatory BMSBuilding: [place] [address] Repository 05/03/2018/05/03/20 [id number] Ambulatory [address] Repository 03/14/2018 [id number] Ambulatory [facility] ding:MRI Repository 03/03/2018 [id number] Ambulatory [facility] ding:PSN Repository 03/03/2018 [id number] Ambulatory BMSBuilding: [facility] Repository 03/01/2018/03/01/20 [id number] Emergency BBuilding:[address] Repository 02/09/2018/02/10/20 [id number] Ambulatory BMSBuilding: [place] [address] Repository 01/24/2018 [id number] Ambulatory [facility] ding:CT Repository 01/03/2018 [id number] Ambulatory [facility] ding:PSN Repository 11/29/2017 [id number] Ambulatory BMSBuilding: [place] BMS.[facility] Repository 11/09/2017/11/10/19 [id number] Ambulatory BMSBuilding: [place] [address] Repository 10/29/2017/10/30/19 [id number] Ambulatory [address] ding:EN Repository 10/29/2017 [id number] Ambulatory BMSBuilding: [place] BMS.CF.[facility] Repository 10/06/2017 [id number] Ambulatory [facility] ding:DC Repository 10/06/2017/10/06/19 [id number] Ambulatory BMSBuilding: [place] [address] Repository 09/27/2017 [id number] Ambulatory [facility] ding:LABSPEC Repository 09/27/2017 [id number] Ambulatory [facility] ding:ONC Repository FUNCTIONAL STATUS FUNCTIONAL STATUS No Functional Status Records FoundEQUIPMENT EQUIPMENT No Equipment Records FoundPAYERS PAYERS ENCOUNTER GUARANTOR PAYER SUBSCRIBER SOURCE 09/13/2018 [facility] OHIP Practices GilbertDOB: Insurance:[place] PPO GilbertDOB: Repository E ConnectPolicy Number: [id number] [facility] Apt [id number] E [facility] [place], [place] Date:0081-69-54Sxiw [address] [place] [address]Cvp: ([phone]) Name:LACHELLE Blackwood [address]30[address]Mbr: (HP) 828AMD shantell [phone] (HP) [address]QV: 09/13/2018 Secondary Yoly OHIP Practices Insurance:[place] GilbertDOB: Repository Elite/McarePolicy [id number] Number: [id number] E [facility] A[facility] Effect Date: [place], [place] [id number] [address]Lkh: ([phone]) Name:F1Joel [place] [phone] (HP) [place], [place] [address]WE: 09/13/2018 Tertiary Yoly OHIP Practices Insurance:[employer] GilbertDOB: Repository icy Number: [id number] E [facility] e Date: [place], [place] 3049-80-44Hzsm [phone]: ([phone]) Name:[phone] (HP) [address] [place] [address] [id number]: 09/12/2018 YOLY D Primary YOLY D [place] [id number] E Insurance:[facility] GILBERTDOB: [facility] Number: [id number] [id number] Repository [address]Jol: (330) Date:2018-09-12P.O. 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 Number: Effective Repository Date:2018-08-18 06/06/2018 YOLY D Primary YOLY Joseph [id number] E Insurance:[place] GILBERTDOB[facility] Number: [id number] [id number] Repository [address]Bnk: (330) Date:2018-06-06P.O. [phone] () BOX [place] [address]ER: 06/06/2018 Secondary NOT GIVENUNK [place] Insurance:SELF PAY [facility] Number: Effective Repository Date:2018-06-06 06/03/2018 YOLY D Primary YOLY Thompson [place] [id number] E Insurance:[place] PPO GILBERTDOB: [facility] Number: [id number] [id number] Repository [address]Sfz: ([phone]) Date:12P.O. [phone] () BOX [place] [address]YK: 06/03/2018 Secondary NOT GIVENUNK [place] Insurance:SELF PAY [facility] Number: Effective Repository Date:2018-06-03 05/09/2018 YOLY D Primary YOLY Joseph [id number] E Insurance:[place] GILBERTDOB: [facility] Number: [id number] [id number] Repository [address]Irf: (330) Date:2018-02-09P.O. [phone] () BOX [place] [address]LL: 05/09/2018 Secondary NOT GIVENUNK [place] Insurance:SELF PAY [facility] Number: Effective Repository Date:2018-04-28 03/14/2018 YOLY D Primary YOLY Joseph [id number] E Insurance:[place] GILBERTDOB: [facility] Number: [id number] [address] [id number] Repository [address]Oti: (330) Date:2018-03-04P.O. [phone] (HP) RICHELLE GARCIA [place] [address]HZ: 03/14/2018 Secondary NOT GIVENUNK [place] Insurance:SELF PAY [facility] Number: Effective Repository Date:2018-03-04 03/03/2018 YOLY D Primary YOLY Thompson [place] [id number] E Insurance:[facility]IHEALTHO GILBERTDOB: [facility] Number: [id number] [id number] Repository [address]Sgq: (330) Date:2018-02-09P.O. [phone] () RICHELLE GARCIA [place] [address]FD: 03/03/2018 Secondary NOT GIVENUNK [place] Insurance:SELF PAY [facility] Number: Effective Repository Date:2018-02-09 03/03/2018 YOLY D Primary YOLY Jay [place] [id number] E Insurance:[facility] Number: [id number] [id number] Repository [address]Jpz: (330) Date:2018-02-09P.O. [phone] () RICHELLE GARCIA [place] [address]XY: 03/03/2018 Secondary NOT GIVENUNK [place] Insurance:SELF PAY [facility] Number: Effective Repository Date:2018-03-03 03/01/2018 [facility] AssociationBERTDOB: Insurance:TRIHEALTHO GILBERTDOB: [facility] E [facility]Policy Number: [id number] [facility] [id number] [facility] [address]Rpj: Date:2018-03-01 [place], [place] [id number] [address]Iqm: (330) ()Tel: ([phone]) Name:[facility] Richelle [phone] () MD Jose ()Tel: [phone]: (wp) [phone] 02/09/2018 YOLY D Primary YOLY D [place] [id number] E Insurance:[place] P[place] GILBERTDOB: [facility] Number: [id number] [id number] Repository [address]Los: (330) Date:2017-11-09P.O. [phone] () BOX [place] [address]MK: 02/09/2018 Secondary NOT GIVENUNK [place] Insurance:SELF PAY [facility] Number: Effective Repository Date:2018-02-03 01/24/2018 YOLY D Primary YOLY D [place] [id number] E Insurance:[place] GILBERTDOB: [facility] Number: [id number] [id number] Repository [address]Oqw: (330) Date:2017-11-09P.O. [phone] () BOX [place] [address]DW: 01/24/2018 Secondary NOT GIVENUNK [place] Insurance:SELF PAY [facility] Number: Effective Repository Date:2017-11-09 01/03/2018 YOLY D Primary YOLY D [place] [id number] E Insurance:[place] GILBERTDOB: [facility] Number: [id number] [id number] Repository [address]Zdr: (330) Date:2017-10-06P.O. [phone] () BOX [place] [address]UB: 01/03/2018 Secondary NOT GIVENUNK [place] Insurance:SELF PAY [facility] Number: Effective Repository Date:2017-10-06 11/29/2017 YOLY D Primary YOLY D [place] [id number] E Insurance:[place] GILBERTDOB: [facility] Number: [id number] [id number] Repository [address]Hwb: (330) Date:2017-10-06P.O. [phone] (HP) BOX [place] [address]BB: 11/29/2017 Secondary NOT GIVENUNK [place] Insurance:SELF PAY [facility]: Effective Repository Date:2017-11-25 11/09/2017 YOLY D Primary YOLY D [place] [id number] E Insurance:[place] P[place] GILBERTDOB: [facility] Number: [id number] [id number] Repository [address]Tkj: (330) Date:2017-11-03P.O. [phone] (HP) BOX [place] [address]OT: 11/09/2017 Secondary NOT GIVENUNK [place] Insurance:SELF PAY [facility] Number: Effective Repository Date:2017-11-03 10/29/2017 YOLY D Primary YOLY D [place] [id number] E Insurance:[place] PPO [facility]IL[facility]DOB: [facility] Number: [id number] [id number] Repository 55379Pmp: ([phone]) Date:2017-10-06P.O. [phone] () BOX MD JOSE 53858HR: 10/29/2017 Secondary NOT GIVENUNK [place] Insurance:SELF PAY [facility] Number: Effective Repository Date:2017-10-06 10/29/2017 YOLY D Primary YOLY D Op[place] [id number] Insurance:[place] [facility]: [id number] [id number] Repository 449[address]Dux: (330) Date:2017-10-06P.O. [phone] (HP) BOX MD JOSE 06006BA: 10/29/2017 Secondary NOT GIVENUNK [place] Insurance:SELF PAY [facility] Number: Effective Repository Date:2017-10-29 10/06/2017 Yoly D Primary Yoly Thompson Opal [id number] Insurance:[place] PPO [facility] Number: [id number] [id number] Repository 228[address]Spg: (330) Date:2012-02-22P.O. [phone] () BOX MD JOSE 27455CL: 10/06/2017 Secondary NOT GIVENUNK [place] Insurance:SELF PAY [facility] Number: Effective Repository Date:2017-07-25 10/06/2017 YOLY D Primary YOLY Thompson [place] [id number] E Insurance:[place] P[place] GILBERTDOB: [facility] Number: [id number] [address] [id number] Repository 21691Rlh: 330) Date:2017-10-01P.O. [phone] () BOX MD JOSE 56966DQ: 10/06/2017 Secondary NOT GIVENUNK [place] Insurance:SELF PAY [facility] Number: Effective Repository Date:2017-10-01 09/27/2017 Yoly D Primary Yoly Thompson Opal [id number] Insurance:[place] P[place] GilbertDOB: [facility] Number: [id number] [id number] Repository 58421Oqp: ([phone]) Date:2017-09-27P.O. [phone] () BOX MD JOSE 64037SA: 09/27/2017 Secondary NOT GIVENUNK [place] Insurance:SELF PAY [facility] Number: Effective Repository Date:2017-09-27 09/27/2017 Yoly D Primary Yoly Jay Opal [id number] Insurance:[place] P[place] GilbertDOB: [facility] Number: [id number] [id number] Repository [address]Tdj: 330 Date:2017-09-24P.O. [phone] (EK) [address] SHANTELL [address]HZ: 09/27/2017 Secondary NOT GIVENUNK [place] Insurance:SELF PAY [facility] Number: Effective Repository Date:2017-09-24 SOCIAL HISTORY SOCIAL HISTORY No Social History Records FoundFAMILY HISTORY FAMILY HISTORY No Family History Records FoundPREGNANCY No Status Records FoundADVANCE DIRECTIVES ADVANCE DIRECTIVES No Advanced Directives Records FoundINFORMATION SOURCE INFORMATION SOURCE DATE CREATED AUTHOR AUTHOR'S ORGANIZATION 09/18/2018 [facility]
== END 2018-09-22 23:59 ==
LOC: HHLAB 10:05
PROVIDERS: Family Provider Nurse Practitioner; PCP Nurse Practitioner
DX: T81.41XA Infection following a procedure, superficial incisional surgical site, initial encounter (principal); B96.89 Other specified bacterial agents as the cause of diseases classified elsewhere; E11.9 Type 2 diabetes mellitus without complications; I10 Essential (primary) hypertension; E78.5 Hyperlipidemia, unspecified; Z45.2 Encounter for adjustment and management of vascular access device; Z79.84 Long term (current) use of oral hypoglycemic drugs; Z79.891 Long term (current) use of opiate analgesic; Z85.841 Personal history of malignant neoplasm of brain
CPT/HCPCS: 82565; 85025

== ENCOUNTER → 2018-09-26 14:39 | Outpatient (CLI) | payer OTHER, SELFPAY | PROVIDERS: Family Provider Nurse Practitioner; PCP Nurse Practitioner | DX: Z45.2 Encounter for adjustment and management of vascular access device (principal) | CPT/HCPCS: J2997; A4216 ==

== ENCOUNTER 2018-10-17 12:26 | Outpatient (RCR) | payer OTHER, SELFPAY ==
[2018-09-26 13:13] LABS: Absolute Lymphocyte Count 1.65 X10^3/ul (0.83-4.51); Absolute Neutrophil Count 3.8 X10^3/uL (2.0-7.7); Basophil# 0.07 X10^3/uL; Eosinophil# 0.38 X10^3/uL; Eosinophils% 5.7 % (0-5); Hematocrit 44.3 % (40-54); Hemoglobin 14.7 g/dl (13.0-16.5); Lymphocyte # 1.65 X10^3/ul (4.0); Lymphocyte % 24.6 % (19-41); Mean Corp Hgb Conc 33.2 g/gl (32-36); Mean Corpuscular Hgb 29.9 pg (27.0-32.0); Mean Platelet Vol. 10.9 fl (6.2-12.0); Monocyte# 0.74 X10^3/uL; Neutrophil % 56.8 % (47-70); Platelet Count 197 K/mm3 (150-450); RBC Distribution Width SD 42.1 fl (35.1-43.9); Red Blood Count 4.92 M/mm3 (4.6-6.2); White Blood Count 6.7 K/mm3 (4.4-11.0)
[2018-09-26 13:14] LABS: POSITIVE COUNT NO; POSITIVE DIFFERENTIAL NO; POSITIVE MORPHOLOGY NO
[2018-09-26 13:21] LABS: Creatinine, Serum 1.27 mg/dL (0.70-1.30); EST Glomerular Filtration Rate 64 mL/min (>60); Est Glom Filt Rate - Afr Amer 77 mL/min (>60)
[2018-10-03 10:11] LABS: Absolute Lymphocyte Count 1.36 X10^3/ul (0.83-4.51); Absolute Neutrophil Count 2.5 X10^3/uL (2.0-7.7); Basophil# 0.04 X10^3/uL; Basophil% 0.8 % (0-1); Eosinophils% 7.9 % (0-5); Hematocrit 44.8 % (40-54); Hemoglobin 14.8 g/dl (13.0-16.5); Lymphocyte # 1.36 X10^3/ul (4.0); Lymphocyte % 26.9 % (19-41); Mean Corpuscular Hgb 29.4 pg (27.0-32.0); Mean Corpuscular Volume 88.9 fL (80-94); Mean Platelet Vol. 10.9 fl (6.2-12.0); Monocyte# 0.69 X10^3/uL; Monocyte% 13.7 % (0-10); Neutrophil # 2.51 X10^3/uL (2.7-7.7); Neutrophil % 49.7 % (47-70); Platelet Count 183 K/mm3 (150-450); RBC Distribution Width CV 12.9 % (11.6-14.6); RBC Distribution Width SD 41.6 fl (35.1-43.9); Red Blood Count 5.04 M/mm3 (4.6-6.2); White Blood Count 5.1 K/mm3 (4.4-11.0)
[2018-10-03 10:12] LABS: POSITIVE COUNT NO; POSITIVE DIFFERENTIAL NO; POSITIVE MORPHOLOGY NO
[2018-10-03 10:18] LABS: Creatinine, Serum 0.71 mg/dL (0.70-1.30); EST Glomerular Filtration Rate 125 mL/min (>60); Est Glom Filt Rate - Afr Amer 151 mL/min (>60)
[2018-10-10 13:33] LABS: Creatinine, Serum 0.74 mg/dL (0.70-1.30); EST Glomerular Filtration Rate 119 mL/min (>60)
[2018-10-10 13:34] LABS: Est Glom Filt Rate - Afr Amer 144 mL/min (>60)
[2018-10-10 13:35] LABS: Absolute Lymphocyte Count 1.25 X10^3/ul (0.83-4.51); Absolute Neutrophil Count 3.2 X10^3/uL (2.0-7.7); Basophil# 0.03 X10^3/uL; Basophil% 0.5 % (0-1); Eosinophil# 0.25 X10^3/uL; Eosinophils% 4.5 % (0-5); Hematocrit 45.7 % (40-54); Hemoglobin 15.3 g/dl (13.0-16.5); Lymphocyte # 1.25 X10^3/ul (4.0); Lymphocyte % 22.6 % (19-41); Mean Corp Hgb Conc 33.5 g/gl (32-36); Mean Corpuscular Hgb 29.5 pg (27.0-32.0); Mean Corpuscular Volume 88.2 fL (80-94); Mean Platelet Vol. 10.6 fl (6.2-12.0); Monocyte# 0.74 X10^3/uL; Monocyte% 13.4 % (0-10); Neutrophil # 3.22 X10^3/uL (2.7-7.7); Neutrophil % 58.1 % (47-70); Platelet Count 162 K/mm3 (150-450); RBC Distribution Width SD 41.5 fl (35.1-43.9); Red Blood Count 5.18 M/mm3 (4.6-6.2); White Blood Count 5.5 K/mm3 (4.4-11.0)
[2018-10-10 13:43] LABS: POSITIVE COUNT NO; POSITIVE DIFFERENTIAL NO; POSITIVE MORPHOLOGY NO
[2018-10-17 13:11] LABS: Absolute Lymphocyte Count 1.05 X10^3/ul (0.83-4.51); Absolute Neutrophil Count 2.9 X10^3/uL (2.0-7.7); Basophil# 0.02 X10^3/uL; Basophil% 0.4 % (0-1); Eosinophil# 0.18 X10^3/uL; Eosinophils% 3.7 % (0-5); Hematocrit 43.9 % (40-54); Hemoglobin 14.3 g/dl (13.0-16.5); Lymphocyte # 1.05 X10^3/ul (4.0); Lymphocyte % 21.5 % (19-41); Mean Corp Hgb Conc 32.6 g/gl (32-36); Mean Corpuscular Hgb 29.1 pg (27.0-32.0); Mean Corpuscular Volume 89.4 fL (80-94); Mean Platelet Vol. 11.2 fl (6.2-12.0); Monocyte# 0.66 X10^3/uL; Monocyte% 13.5 % (0-10); Neutrophil # 2.92 X10^3/uL (2.7-7.7); Neutrophil % 59.9 % (47-70); Platelet Count 143 K/mm3 (150-450); RBC Distribution Width CV 12.9 % (11.6-14.6); RBC Distribution Width SD 41.9 fl (35.1-43.9); Red Blood Count 4.91 M/mm3 (4.6-6.2); White Blood Count 4.9 K/mm3 (4.4-11.0)
[2018-10-17 13:12] LABS: POSITIVE COUNT NO; POSITIVE DIFFERENTIAL NO; POSITIVE MORPHOLOGY NO
[2018-10-17 13:22] LABS: Creatinine, Serum 0.75 mg/dL (0.70-1.30); EST Glomerular Filtration Rate 117 mL/min (>60); Est Glom Filt Rate - Afr Amer 142 mL/min (>60)
== END 2018-10-20 23:59 ==
LOC: HHLAB 12:26
PROVIDERS: Family Provider Nurse Practitioner; PCP Nurse Practitioner
DX: T81.41XA Infection following a procedure, superficial incisional surgical site, initial encounter (principal); B96.89 Other specified bacterial agents as the cause of diseases classified elsewhere; E11.9 Type 2 diabetes mellitus without complications; I10 Essential (primary) hypertension; E78.5 Hyperlipidemia, unspecified; Z45.2 Encounter for adjustment and management of vascular access device; Z79.84 Long term (current) use of oral hypoglycemic drugs; Z79.891 Long term (current) use of opiate analgesic; Z85.841 Personal history of malignant neoplasm of brain
CPT/HCPCS: 82565; 85025

== ENCOUNTER → 2018-10-24 07:41 | Outpatient (CLI) | payer OTHER, SELFPAY ==
--- NOTE | 2018-10-24 07:44 | CT_ITS ---
STUDY: CT CHEST WITH CONTRAST REASON FOR EXAM: Male, 53 years old. Mediastinal adenopathy follow-up RADIATION DOSAGE (If Supplied By Facility): CTDIvol = ( 11.57 ) mGy, DLP = ( 408.84 ) mGycm TECHNIQUE: Transaxial imaging was performed following intravenous administration of Isovue 300 100CC IV. Individualized dose optimization techniques were used for this CT. COMPARISON: 01/24/2018 FINDINGS: Grossly unremarkable thyroid. There are numerous bilateral pulmonary nodules which have all increased in size as compared with exam from January 2018 indicating worsening disease. There are several new nodules as well. The largest overall nodule is in the medial right middle lobe measuring 2.2 x 1.5 cm. No acute airspace disease. There is no demonstrated pleural abnormality. Mild cardiomegaly is noted. As compared to the prior exam, there is slight diffuse increase in bulky mediastinal and bihilar lymphadenopathy. Increase in size of a prevascular lymph node which used to measure 1.3 cm, now measuring 1.45 cm. Additional increase in size of numerous bulky lymphadenopathy. Normal enhanced pulmonary arteries. Normal aorta arch and descending thoracic aorta. Increase in size of paraesophageal lymph nodes, particularly at the GE junction. Normal osseous structures. There is no demonstrated abnormality of the visualized upper abdomen. CT/Chest WITH Contrast IMPRESSION: 1. Diffuse increase in size and number of numerous pulmonary nodules compatible with worsening disease 2. Slight worsening of bulky diffuse mediastinal and bihilar lymphadenopathy 3. No acute airspace disease. Electronically Signed: Jose Alcantara DO at 9:15 EST Tel , Service support ,
== END ==
PROVIDERS: Family Provider Nurse Practitioner; PCP Nurse Practitioner; Referring Provider Nurse Practitioner Acute Care; Visit Provider Nurse Practitioner Acute Care
DX: D86.0 Sarcoidosis of lung (principal)
CPT/HCPCS: 71260; Q9967

== ENCOUNTER → 2019-05-29 | Outpatient (CLI) | payer OTHER, SELFPAY ==
--- NOTE | 2019-05-29 06:42 | CT_ITS ---
STUDY: CT CHEST WITH CONTRAST REASON FOR EXAM: Male, 53 years old. Follow-up of sarcoidosis. RADIATION DOSAGE (If Supplied By Facility): CTDIvol = ( 13.61 ) mGy, DLP = ( 608.49 ) mGycm TECHNIQUE: Transaxial imaging was performed following intravenous administration of 100 ml of Isovue 300. Multiplanar coronal and sagittal images were reformatted. Individualized dose optimization techniques were used for this CT. COMPARISON: PET/CT dated September 27, 2017. FINDINGS: The lungs are expanded. The right middle lobe pulmonary nodule measuring approximately 2.1 cm in greatest dimension. This is not present on the previous PET/CT. There are several smaller right middle lobe pulmonary nodules as well. There are nodular areas of the lingula measuring up to 2.0 x 1.8 x 1.9 cm in size. There are bilateral lower lobe pulmonary nodules. The right-sided pulmonary nodule measures up to 1.5 cm. The left-sided pulmonary nodule measures up to 7.9 mm in size. These were not visible on the previous CT. There is no demonstrated pleural abnormality. Normal heart and pericardium. There are pathologic mediastinal lymph nodes within the right paratracheal region, pretracheal and precarinal region, and subcarinal region. There is bilateral hilar lymphadenopathy. There is also prevascular mediastinal lymphadenopathy. Normal enhanced pulmonary arteries. Normal aorta arch and descending thoracic aorta. Normal osseous structures. There appears to be retroperitoneal lymphadenopathy. CT/Chest WITH Contrast IMPRESSION: 1. Multiple bilateral pulmonary nodules suggest the presence of metastasis and are new since the previous PET/CT.. 2. Extensive mediastinal and hilar lymphadenopathy is similar to the PET CT and is consistent with patient's known sarcoid. 3. Retroperitoneal lymphadenopathy. Electronically Signed: Kristen Gonzalez MD at 8:42 EDT , Service support ,
== END | disposition home or self-care (01) ==
LOC: CT 06:41
PROVIDERS: Family Provider Nurse Practitioner; PCP Nurse Practitioner; Referring Provider Internal Medicine Critical Care Medicine; Visit Provider Internal Medicine Critical Care Medicine
DX: D86.0 Sarcoidosis of lung (principal); R59.0 Localized enlarged lymph nodes
CPT/HCPCS: 71260; Q9967

== ENCOUNTER → 2019-06-13 | Outpatient (CLI) | payer OTHER, SELFPAY ==
--- NOTE | 2019-06-14 09:48 | PFT ---
INTRODUCTION: The patient is a 53-year-old male that presents for pulmonary function studies secondary to a diagnosis of sarcoidosis. Respiratory therapy reports good patient effort. Bronchodilators were used during testing. INTERPRETATION: Forced expiration spirometry demonstrates no evidence of a large airways obstructive ventilatory defect. There was, nevertheless, a significant response to aerosolized bronchodilators, based upon change noted in FEV1. Spirograms are of good quality and plateau normally. Body plethysmography was performed and reveals a decrease TLC to 4.77 L, 80% of predicted, indicative of a mild restrictive ventilatory impairment. The remainder of the lung volumes are symmetrically reduced. Diffusing capacity by single breath CO is within normal limits at 84% of predicted. IMPRESSION: Isolated mild restrictive ventilatory impairment with preserved diffusing capacity. Significant bronchodilator response was noted.
== END | disposition home or self-care (01) ==
LOC: PSN 10:06
PROVIDERS: Family Provider Nurse Practitioner; PCP Nurse Practitioner; Referring Provider Internal Medicine Critical Care Medicine; Visit Provider Internal Medicine Critical Care Medicine
DX: D86.0 Sarcoidosis of lung (principal); R59.0 Localized enlarged lymph nodes
CPT/HCPCS: 94060; 94726; 94729

== ENCOUNTER → 2019-08-21 08:58 | Outpatient (CLI) | payer OTHER, SELFPAY ==
[2019-07-13 08:52] VITALS: BMI 29.7
--- NOTE | 2019-08-21 09:04 | RAD_ITS ---
HISTORY: NKI. HEEL PAIN ADDITIONAL HISTORY: None provided. TECHNIQUE: Left foot 3 views Number of images including paperwork: 3 COMPARISON: None FINDINGS: BONES: No acute fracture. Small plantar enthesophyte. JOINTS: No subluxation. SOFT TISSUES: No distinct foreign body. RAD/Foot min 3 Views IMPRESSION: No acute osseous abnormality. at 2334 Reported and signed by: Natalie Fernández MD Electronically Signed: Natalie Fernández MD at 23:34 EST Tel , Service support ,
== END ==
PROVIDERS: Family Provider Nurse Practitioner; PCP Nurse Practitioner; Referring Provider Nurse Practitioner Gerontology; Visit Provider Nurse Practitioner Gerontology
DX: M79.672 Pain in left foot (principal)
CPT/HCPCS: 73630

== ENCOUNTER → 2019-09-26 | Outpatient (CLI) | payer OTHER, SELFPAY ==
[2019-07-13 08:52] VITALS: BMI 29.7
[2019-09-26 12:49] LABS: Absolute Lymphocyte Count 1.33 X10^3/uL (0.83-4.51); Absolute Neutrophil Count 2.7 X10^3/uL (2.0-7.7); Basophil# 0.06 X10^3/uL; Basophil% 1.2 % (0-1); Color, Urine Yellow (Yellow); Eosinophil# 0.18 X10^3/uL; Eosinophils% 3.7 % (0-5); Glucose, Dipstick Normal (Normal); Hematocrit 45.7 % (40-54); Hemoglobin 15.1 g/dL (13.0-16.5); Ketone-Dipstick Negative (Negative); Leukocyte Esterase-Dipstick Negative /ul (Negative); Lymphocyte # 1.33 X10^3/ul (4.0); Lymphocyte % 27.3 % (19-41); Mean Corpuscular Hgb 29.8 pg (27.0-32.0); Mean Corpuscular Volume 90.1 fL (80-94); Mean Platelet Vol. 10.8 fl (6.2-12.0); Monocyte# 0.57 X10^3/uL; Monocyte% 11.7 % (0-10); NRBC Flagged by Analyzer 0 % (0-5); Neutrophil # 2.69 X10^3/uL (2.7-7.7); Neutrophil % 55.1 % (47-70); Nitrite-Dipstick Negative (Negative); Occult Blood-Urine 10 /ul (Negative); Platelet Count 198 K/mm3 (150-450); Protein-Dipstick Negative (Negative); RBC Distribution Width CV 12.4 % (11.6-14.6); Red Blood Count 5.07 M/mm3 (4.6-6.2); Specific Gravity, Urine 1.015 (1.002-1.030); Urine Bilirubin Dipstick Negative (Negative); Urine Clarity Sl. Cloudy (Clear); Urine Urobilinogen Normal (Normal); White Blood Count 4.9 K/mm3 (4.4-11.0)
[2019-09-26 12:56] LABS: Protein, Urine (Random) 23.6 mg/dL (<11.9); Protein:Creat Ratio 144 mg/g CRE (0-200)
[2019-09-26 12:58] LABS: Erythrocyte Sedimentation Rate 14 mm/hr (0-20)
[2019-09-26 14:17] LABS: Hepatitis B Surface Antibody Non-Reactive; Hepatitis B Surface Antigen Non-Reactive (Nonreactive); Hepatitis C Antibody Non-Reactive (Nonreactive)
[2019-09-26 15:54] LABS: ALB/GLOB Ratio 0.9 RATIO (0.9-2.4); AST(SGOT) 25 U/L (15-37); Alanine Aminotransfer ALT/SGPT 36 U/L (16-61); Albumin, Serum 3.7 g/dL (3.2-5.0); Alkaline Phosphatase 107 U/L (45-117); Anion Gap 8 (5-15); BUN 10 mg/dL (7-18); BUN/Creat Ratio 11.1 RATIO (10-20); CRP 4.09 mg/L (0.0-3.0); Calcium,Total 8.9 mg/dL (8.5-10.1); Chloride 106 mmol/L (98-107); EST Glomerular Filtration Rate 94 mL/min (>60); Est Glom Filt Rate - Afr Amer 114 mL/min (>60); Globulin 3.9 g/dL (2.2-4.2); Glucose 130 mg/dL (74-106); Potassium 3.4 mmol/L (3.5-5.1); Protein, Total 7.6 g/dL (6.4-8.2); Rheumatoid Factor < 10.0 IU/mL (<15); Sodium Level 140 mmol/L (136-145)
[2019-09-27 20:41] LABS: ANTINUCLEAR ANTIBODIES DIRECT Negative (Negative)
[2019-09-29 04:07] LABS: QNTFERON TB Mitogen Value > 10.00 IU/mL (.); QNTFERON TB Nil Value 0.05 IU/mL (.); QNTFERON TB1+ Ag Value 0.06 IU/mL (.); QNTFERON TB2+ Ag Value 0.06 IU/mL (.)
[2019-09-29 15:13] LABS: CCP IgG Antibodies 9 units (0-19); Hepatitis B Core AB IgM Negative (Negative); QNTIFERON TB Positive Criteria Negative (Negative)
== END | disposition home or self-care (01) ==
LOC: LAB 11:43
PROVIDERS: PCP Nurse Practitioner; Referring Provider Internal Medicine Rheumatology; Visit Provider Internal Medicine Rheumatology
DX: D86.86 Sarcoid arthropathy (principal); D86.9 Sarcoidosis, unspecified; M72.2 Plantar fascial fibromatosis; K21.9 Gastro-esophageal reflux disease without esophagitis; I10 Essential (primary) hypertension; E11.9 Type 2 diabetes mellitus without complications; N20.0 Calculus of kidney; H93.13 Tinnitus, bilateral
CPT/HCPCS: 36415; 80053; 81002; 82570; 84156; 85025; 85652; 86038; 86140; 86200; 86431; 86480; 86705; 86706; 86803; 87340

== ENCOUNTER → 2019-10-02 08:57 | Outpatient (CLI) | payer OTHER, SELFPAY ==
[2019-07-13 08:52] VITALS: BMI 29.7
--- NOTE | 2019-10-02 09:03 | US_ITS ---
STUDY: ABDOMINAL ULTRASOUND - RIGHT UPPER QUADRANT REASON FOR VISIT: Male, 54 years old ELEVATED LIVER ENZYMES -- HX OF SARCOIDOSIS -- HX OF CHOLECYSTECTOMY TECHNIQUE: Ultrasound evaluation of the right upper quadrant was performed with real-time and static duncan-scale imaging. TECHNICAL QUALITY: Adequate. COMPARISON: None. FINDINGS: Liver: The liver is enlarged and measures 20 cm. There is increased echogenicity consistent with fatty infiltration. The bile ducts are within normal limits. There is hepatic color flow. The direction of portal flow is hepatopetal. There is no demonstrated mass lesion. Gallbladder: The patient is status post cholecystectomy. Common Bile Duct (C.B.D.): The common bile duct measures 5.1 mm. Pancreas: Normal size of the head, body and tail of the pancreas. There is increased echogenicity of the pancreas. There is no demonstrated pancreatic mass or cyst. Right Kidney: Normal size of the right kidney. The right kidney measures 12 cm x 4.8 cm x 4.3 cm. Normal renal cortex. The right cortex measures 1.2 cm. There is no demonstrated renal mass or cyst. There is no right hydronephrosis. US/Liver IMPRESSION: Hepatomegaly and diffuse fatty infiltration of the liver. Status post cholecystectomy. Electronically Signed: Alonso Arteaga, at 15:43 EST , Service support ,
== END ==
LOC: US 08:59
PROVIDERS: PCP Nurse Practitioner; Referring Provider Internal Medicine Rheumatology; Visit Provider Internal Medicine Rheumatology
DX: D86.86 Sarcoid arthropathy (principal); M72.2 Plantar fascial fibromatosis; K21.9 Gastro-esophageal reflux disease without esophagitis; I10 Essential (primary) hypertension; E11.9 Type 2 diabetes mellitus without complications; R51 Headache; N20.0 Calculus of kidney; H93.13 Tinnitus, bilateral
CPT/HCPCS: 76705

== ENCOUNTER → 2019-10-13 | Outpatient (CLI) | payer OTHER, SELFPAY ==
[2019-07-13 08:52] VITALS: BMI 29.7
--- NOTE | 2019-10-13 08:27 | CT_ITS ---
STUDY: CT CHEST WITH CONTRAST REASON FOR EXAM: Male, 54 years old. Sarcoidosis RADIATION DOSAGE (If Supplied By Facility): CTDIvol = ( 15.65 ) mGy, DLP = ( 673.36 ) mGycm TECHNIQUE: Transaxial imaging was performed following intravenous administration of IV 100mL Isovue-300. Individualized dose optimization techniques were used for this CT. COMPARISON: 29 May 2019 FINDINGS: There is a clinical diagnosis of sarcoidosis. All thoracic findings are consistent with that diagnosis. There are extensive multiple enlarged mediastinal lymph nodes. There are bilateral multiple pulmonary nodules with the largest one in the right middle lobe measuring 1.5 cm. Airways are patent. Pleural surfaces are intact. Aorta and pulmonary artery and caudate chambers are normal. Pericardium is intact. There is cholecystectomy and upper abdominal retroperitoneal lymph nodes. Appearance is stable since prior study. CT/Chest WITH Contrast IMPRESSION: 1. No acute findings or change since priors. 2. Thoracic findings of sarcoidosis, mediastinal lymph nodes and pulmonary nodules. Electronically Signed: Princess Levy, at 17:09 EST Tel , Service support ,
== END | disposition home or self-care (01) ==
LOC: CT 08:27
PROVIDERS: PCP Nurse Practitioner; Referring Provider Internal Medicine Critical Care Medicine; Visit Provider Internal Medicine Critical Care Medicine
DX: D86.0 Sarcoidosis of lung (principal); R59.0 Localized enlarged lymph nodes
CPT/HCPCS: 71260; Q9967

== ENCOUNTER → 2020-01-29 08:05 | Outpatient (CLI) | payer OTHER, SELFPAY ==
[2020-01-11 09:55] VITALS: BMI 29.7
--- NOTE | 2020-01-29 08:06 | CT_ITS ---
STUDY: CT CHEST WITH CONTRAST REASON FOR EXAM: Male, 54 years old. FOLLOW UP-METHOTREXATE THERAPY FOR SARCOIDOSIS RADIATION DOSAGE (If Supplied By Facility): CTDIvol = ( 12.31 ) mGy, DLP = ( 492.06 ) mGycm TECHNIQUE: Transaxial imaging was performed following intravenous administration of IV 100mL Isovue-300. Multiplanar coronal and sagittal images were reformatted. Individualized dose optimization techniques were used for this CT. COMPARISON: Comparison is made with prior examination dated October 13, 2019 FINDINGS: Stable appearance of the bilateral pulmonary nodules. The largest is in the anterior aspect of the right middle lobe and measures 1.1 cm x 2 cm. There is no demonstrated pleural abnormality. Normal heart and pericardium. Once again, there is evidence of a diffuse mediastinal lymph node enlargement. The dominant right paratracheal marlin mass as decrease in size presently measures 3.1 cm x 2.2 cm. The subcarinal lymphadenopathy as decrease in size as well. It presently measures 3.6 cm x 2.3 cm. Stable appearance of the lateral hilar lymphadenopathy. Normal enhanced pulmonary arteries. Normal aorta arch and descending thoracic aorta. Normal osseous structures. There is no demonstrated abnormality of the visualized upper abdomen. CT/Chest WITH Contrast IMPRESSION: Diffuse mediastinal and hilar lymphadenopathy although there is been mild improvement of the subcarinal and right paratracheal lymph nodes. Stable bilateral hilar adenopathy. Stable bilateral pulmonary nodules. Electronically Signed: Alonso Arteaga, at 8:53 EDT , Service support ,
== END ==
PROVIDERS: PCP Nurse Practitioner; Referring Provider Internal Medicine Critical Care Medicine; Visit Provider Internal Medicine Critical Care Medicine
DX: D86.0 Sarcoidosis of lung (principal)
CPT/HCPCS: 71260; Q9967

== ENCOUNTER → 2020-04-02 08:28 | Outpatient (CLI) | payer OTHER, SELFPAY ==
[2020-01-11 09:55] VITALS: BMI 29.7
--- NOTE | 2020-04-03 14:09 | PFT ---
INTRODUCTION: The patient is a 54-year-old male that presents for pulmonary function studies secondary to a diagnosis of sarcoidosis. Respiratory therapy reports good patient effort. Bronchodilators were used during testing. INTERPRETATION: Forced expiration spirometry demonstrates no evidence of a large airways obstructive ventilatory defect. There was no significant response to aerosolized bronchodilators. Spirograms are of good quality and plateau normally. Body plethysmography was performed and reveals lung volumes to be within normal limits. Diffusing capacity by single breath CO is also within normal limits. When compared to previous pulmonary function studies from May 2019, there has been significant improvement in the patient's FEV1 and DLCO. IMPRESSION: Essentially normal pulmonary function studies. There has been improvement in the patient's PFTs since 2018, as noted above.
== END ==
PROVIDERS: PCP Nurse Practitioner; Referring Provider Internal Medicine Critical Care Medicine; Visit Provider Internal Medicine Critical Care Medicine
DX: D86.0 Sarcoidosis of lung (principal)
CPT/HCPCS: 94060; 94726; 94729

== ENCOUNTER → 2020-04-10 | Outpatient (CLI) | payer OTHER, SELFPAY ==
[2020-01-11 09:55] VITALS: BMI 29.7
[2020-04-10 16:01] LABS: Absolute Lymphocyte Count 1.27 X10^3/uL (0.83-4.51); Basophil# 0.04 X10^3/uL; Basophil% 0.7 % (0-1); Eosinophil# 0.15 X10^3/uL; Eosinophils% 2.5 % (0-5); Hematocrit 48.7 % (40-54); Lymphocyte # 1.27 X10^3/ul (4.0); Lymphocyte % 20.9 % (19-41); Mean Corp Hgb Conc 32.9 g/dL (32-36); Mean Corpuscular Hgb 30.4 pg (27.0-32.0); Mean Corpuscular Volume 92.6 fL (80-94); Mean Platelet Vol. 11.1 fl (6.2-12.0); Monocyte# 0.65 X10^3/uL; Monocyte% 10.7 % (0-10); NRBC Flagged by Analyzer 0 % (0-5); Neutrophil # 3.95 X10^3/uL (2.7-7.7); Neutrophil % 64.7 % (47-70); Platelet Count 186 K/mm3 (150-450); RBC Distribution Width CV 12.6 % (11.6-14.6); RBC Distribution Width SD 42.4 fl (35.1-43.9); Red Blood Count 5.26 M/mm3 (4.6-6.2); White Blood Count 6.1 K/mm3 (4.4-11.0)
[2020-04-10 16:14] LABS: ALB/GLOB Ratio 1.1 RATIO (0.9-2.4); AST(SGOT) 17 U/L (15-37); Alanine Aminotransfer ALT/SGPT 42 U/L (16-61); Alkaline Phosphatase 100 U/L (45-117); Anion Gap 5 (5-15); BUN 16 mg/dL (7-18); BUN/Creat Ratio 18.6 RATIO (10-20); Calcium,Total 8.6 mg/dL (8.5-10.1); Chloride 103 mmol/L (98-107); Creatinine, Serum 0.86 mg/dL (0.70-1.30); EST Glomerular Filtration Rate 99 mL/min (>60); Est Glom Filt Rate - Afr Amer 120 mL/min (>60); Globulin 3.6 g/dL (2.2-4.2); Glucose 114 mg/dL (74-106); Potassium 3.6 mmol/L (3.5-5.1); Protein, Total 7.6 g/dL (6.4-8.2); Sodium Level 137 mmol/L (136-145)
== END | disposition home or self-care (01) ==
LOC: LAB 11:36
PROVIDERS: PCP Nurse Practitioner; Referring Provider Internal Medicine Rheumatology; Visit Provider Internal Medicine Rheumatology
DX: D86.86 Sarcoid arthropathy (principal); D86.9 Sarcoidosis, unspecified; M72.2 Plantar fascial fibromatosis; K21.9 Gastro-esophageal reflux disease without esophagitis; I10 Essential (primary) hypertension; E11.9 Type 2 diabetes mellitus without complications; R51 Headache; N20.0 Calculus of kidney; H93.13 Tinnitus, bilateral; G47.33 Obstructive sleep apnea (adult) (pediatric); Z86.011 Personal history of benign neoplasm of the brain; Z79.899 Other long term (current) drug therapy
CPT/HCPCS: 36415; 80053; 85025

== ENCOUNTER → 2020-06-03 10:27 | Outpatient (CLI) | payer OTHER, SELFPAY ==
[2020-01-11 09:55] VITALS: BMI 29.7
[2020-06-03 12:45] LABS: Absolute Lymphocyte Count 1.16 X10^3/uL (0.83-4.51); Basophil# 0.04 X10^3/uL; Basophil% 0.8 % (0-1); Eosinophil# 0.14 X10^3/uL; Eosinophils% 2.8 % (0-5); Hematocrit 45.9 % (40-54); Hemoglobin 14.9 g/dL (13.0-16.5); Lymphocyte # 1.16 X10^3/ul (4.0); Lymphocyte % 23.1 % (19-41); Mean Corp Hgb Conc 32.5 g/dL (32-36); Mean Corpuscular Volume 95.4 fL (80-94); Mean Platelet Vol. 10.6 fl (6.2-12.0); Monocyte# 0.59 X10^3/uL; Monocyte% 11.7 % (0-10); NRBC Flagged by Analyzer 0 % (0-5); Neutrophil # 3.04 X10^3/uL (2.7-7.7); Neutrophil % 60.4 % (47-70); Platelet Count 148 K/mm3 (150-450); RBC Distribution Width CV 13.9 % (11.6-14.6); RBC Distribution Width SD 48.3 fl (35.1-43.9); Red Blood Count 4.81 M/mm3 (4.6-6.2)
[2020-06-03 13:23] LABS: AST(SGOT) 17 U/L (15-37); Alanine Aminotransfer ALT/SGPT 39 U/L (16-61); Albumin, Serum 3.7 g/dL (3.2-5.0); Alkaline Phosphatase 114 U/L (45-117); Anion Gap 6 (5-15); BUN 17 mg/dL (7-18); BUN/Creat Ratio 20.6 RATIO (10-20); Calcium,Total 8.9 mg/dL (8.5-10.1); Chloride 104 mmol/L (98-107); Creatinine, Serum 0.83 mg/dL (0.70-1.30); EST Glomerular Filtration Rate 104 mL/min (>60); Est Glom Filt Rate - Afr Amer 125 mL/min (>60); Globulin 3.8 g/dL (2.2-4.2); Glucose 140 mg/dL (74-106); Potassium 4.2 mmol/L (3.5-5.1); Protein, Total 7.5 g/dL (6.4-8.2); Sodium Level 138 mmol/L (136-145)
== END ==
PROVIDERS: PCP Nurse Practitioner; Referring Provider Internal Medicine Rheumatology; Visit Provider Internal Medicine Rheumatology
DX: D86.86 Sarcoid arthropathy (principal); D86.9 Sarcoidosis, unspecified; M72.2 Plantar fascial fibromatosis; K21.9 Gastro-esophageal reflux disease without esophagitis; I10 Essential (primary) hypertension; E11.9 Type 2 diabetes mellitus without complications; R51.9 Headache, unspecified; N20.0 Calculus of kidney; H93.13 Tinnitus, bilateral; G47.33 Obstructive sleep apnea (adult) (pediatric); Z86.011 Personal history of benign neoplasm of the brain; Z79.899 Other long term (current) drug therapy
CPT/HCPCS: 36415; 80053; 85025

== ENCOUNTER → 2020-07-22 11:14 | Outpatient (CLI) | payer OTHER, SELFPAY ==
[2020-01-11 09:55] VITALS: BMI 29.7
[2020-07-22 15:14] LABS: Absolute Lymphocyte Count 1.16 X10^3/uL (0.83-4.51); Absolute Neutrophil Count 3.9 X10^3/uL (2.0-7.7); Basophil# 0.04 X10^3/uL; Basophil% 0.7 % (0-1); Eosinophil# 0.13 X10^3/uL; Eosinophils% 2.2 % (0-5); Hemoglobin 15.8 g/dL (13.0-16.5); Lymphocyte # 1.16 X10^3/ul (4.0); Lymphocyte % 19.6 % (19-41); Mean Corp Hgb Conc 32.9 g/dL (32-36); Mean Corpuscular Hgb 31.8 pg (27.0-32.0); Mean Corpuscular Volume 96.6 fL (80-94); Mean Platelet Vol. 11.1 fl (6.2-12.0); Monocyte% 10.2 % (0-10); NRBC Flagged by Analyzer 0 % (0-5); Neutrophil # 3.87 X10^3/uL (2.7-7.7); Neutrophil % 65.4 % (47-70); Platelet Count 197 K/mm3 (150-450); RBC Distribution Width CV 13.3 % (11.6-14.6); RBC Distribution Width SD 47.5 fl (35.1-43.9); Red Blood Count 4.97 M/mm3 (4.6-6.2); White Blood Count 5.9 K/mm3 (4.4-11.0)
[2020-07-22 15:33] LABS: ALB/GLOB Ratio 1.1 RATIO (0.9-2.4); AST(SGOT) 21 U/L (15-37); Alanine Aminotransfer ALT/SGPT 46 U/L (16-61); Albumin, Serum 3.9 g/dL (3.2-5.0); Alkaline Phosphatase 123 U/L (45-117); Anion Gap 7 (5-15); BUN 17 mg/dL (7-18); BUN/Creat Ratio 19.8 RATIO (10-20); Calcium,Total 9.5 mg/dL (8.5-10.1); Chloride 107 mmol/L (98-107); Creatinine, Serum 0.86 mg/dL (0.70-1.30); EST Glomerular Filtration Rate 99 mL/min (>60); Est Glom Filt Rate - Afr Amer 120 mL/min (>60); Globulin 3.6 g/dL (2.2-4.2); Glucose 144 mg/dL (74-106); Potassium 3.7 mmol/L (3.5-5.1); Protein, Total 7.5 g/dL (6.4-8.2); Sodium Level 140 mmol/L (136-145)
== END ==
PROVIDERS: PCP Nurse Practitioner; Referring Provider Internal Medicine Rheumatology; Visit Provider Internal Medicine Rheumatology
DX: D86.86 Sarcoid arthropathy (principal); D86.9 Sarcoidosis, unspecified; M72.2 Plantar fascial fibromatosis; K21.9 Gastro-esophageal reflux disease without esophagitis; I10 Essential (primary) hypertension; E11.9 Type 2 diabetes mellitus without complications; R51.9 Headache, unspecified; N20.0 Calculus of kidney; H93.13 Tinnitus, bilateral; G47.33 Obstructive sleep apnea (adult) (pediatric); Z86.011 Personal history of benign neoplasm of the brain; Z79.899 Other long term (current) drug therapy
CPT/HCPCS: 36415; 80053; 85025

== ENCOUNTER → 2020-08-19 08:07 | Outpatient (CLI) | payer OTHER, SELFPAY ==
[2020-08-07 07:11] VITALS: BMI 27.0
--- NOTE | 2020-08-19 11:59 | PFT ---
INTRODUCTION: The patient is a 54-year-old male that presents for pulmonary function studies secondary to a diagnosis of sarcoidosis. Respiratory therapy reports good patient effort. Bronchodilators were used during testing. INTERPRETATION: Forced expiration spirometry demonstrates no evidence of a large airways obstructive ventilatory defect. There was no significant response to aerosolized bronchodilators. Spirograms are of good quality and plateau normally. Body plethysmography was performed and reveals a mildly decreased TLC to 4.85 L, 82% of predicted, indicative of a mild restrictive ventilatory impairment. Diffusing capacity by single breath CO is within normal limits. IMPRESSION: Isolated mild restrictive ventilatory impairment with preserved diffusing capacity.
== END ==
PROVIDERS: PCP Nurse Practitioner; Referring Provider Internal Medicine Critical Care Medicine; Visit Provider Internal Medicine Critical Care Medicine
DX: D86.0 Sarcoidosis of lung (principal)
CPT/HCPCS: 94060; 94726; 94729

== ENCOUNTER 2020-09-20 17:42 | Emergency (ER) | payer OTHER, SELFPAY ==
[2020-08-07 07:11] VITALS: BMI 27.0
[2020-09-20 17:42] VITALS: BP 152/98; PULSE 78; RESP 16; TEMP 36.3; O2SAT 96; BMI 28.1
--- NOTE | 2020-09-20 18:28 | ED.VIS.GEN ---
History of Present Illness Chief Complaint: Laceration Narrative: 54-year-old male presenting with laceration to left ring finger that occurred about an hour and a half ago. Patient states that he stood on a veggie slicer. He was able to get the bleeding under control by the time he got to the ED. He is right-hand dominant. He does not know his last tetanus. Denies other symptoms at this time. Past Medical History - Allergies and Home Meds Allergies/Adverse Reactions: Allergies No Known Allergies Allergy (Verified 09/20/20 17:44) Primary Care Physician: Louann Alejandre [facility]NER, [facility]NER-C [Primary Care Provider] - Prior records reviewed: Yes Past Medical History: - - Diabetes, GERD, chronic headaches Surgical History: noncontributory Smoking Status: Never smoker Review of Systems General: Denies: Chills, Fever, Sweats Eyes: Denies: Visual changes - bilaterally, Diplopia ENT: Denies: Rhinorrhea, Sore throat Cardiovascular: Denies: Chest pain, Palpitations Respiratory: Denies: Dyspnea, Cough, Dyspnea on exertion Gastrointestinal: Denies: Abdominal pain, Nausea, Vomiting, Diarrhea, Melena, Hematochezia Genitourinary: Denies: Dysuria, Hematuria, Frequency Musculoskeletal: Denies: Back pain, Extremity Pain Skin: Reports: Wounds - She centimeter laceration distal aspect of left ring finger. Bleeding is controlled. No tendon or nailbed involvement.. Denies: Rash Neurological: Denies: Headache, Parasthesia, Numbness Psych: Denies: Depression, Anxiety Physical Exam Vital Signs/Narrative: Vital Signs Temp Pulse Resp BP Pulse Ox 09/20/20 17:42 97.3 F L 78 16 152/98 H 96 Inital Vital Signs reviewed: Yes General: Well nourished, No Acute Distress Head: Normocephalic, Atraumatic Eyes: Perrl, EOMI ENT: Moist mucous membranes, No rhinorrhea Cardiovascular: Regular rate, Regular rhythm Respiratory: No distress, CTA bilaterally Extremities: - - Tenderness to palpation left ring finger at the distal aspect. Skin: - - Centimeter laceration distal left ring finger. Sensation is intact. Brisk cap refill. No tendon or bony involvement. Neurological: Alert, Oriented x3 Psychological: Normal affect, Normal Mood Diagnostic/Tx/Re-eval - Medical Decision Making Patient presents with laceration to the distal aspect of the left ring finger. Bleeding is well controlled. Patient's laceration was repaired without sequela. Patient tolerated procedure well. Please see procedure note. Patient's tetanus is updated. He is given wound instructions and he will follow up in 2 weeks for removal of sutures. Impression: 1. 2 cm laceration left ring finger Procedures - Lacerations No standard instances Depth: Skin Shape: Linear Prep: Sterile Conditions, Chlorhexadine Irrigated (ml): 500 Number of Sutures/Lupe: 3 Suture Information: Vicryl, Simple, 5-0 ED Disposition - Plan for ED Patient: Disposition: Home or Assisted Living Instructions: ED Laceration, Hand: All Closures Referrals: Louann Alejandre NP, [facility]-C [Primary Care Provider] -
[2020-09-20] MEDS: Lidocaine 1% (20 ml mdv) 20 ML Vial 10 ML INFILT (18:36)
[2020-09-20] MEDS: Diphth,Pertuss(Acell),Tet Vac 0.5 ML Vial IM (18:37)
== END 2020-09-20 20:05 | disposition home or self-care (01) ==
PROVIDERS: Emergency Provider Student in an Organized Health Care Education/Training Program; PCP Nurse Practitioner
DX: S61.215A Laceration without foreign body of left ring finger without damage to nail, initial encounter (principal); W27.4XXA Contact with kitchen utensil, initial encounter; Y93.89 Activity, other specified; Y92.89 Other specified places as the place of occurrence of the external cause; Y99.8 Other external cause status; Z23 Encounter for immunization; E11.9 Type 2 diabetes mellitus without complications; K21.9 Gastro-esophageal reflux disease without esophagitis; Z79.84 Long term (current) use of oral hypoglycemic drugs; Z79.899 Other long term (current) drug therapy
CPT/HCPCS: 12001; 90471; 90715; 99283

== ENCOUNTER → 2020-10-07 11:05 | Outpatient (CLI) | payer OTHER, SELFPAY ==
[2020-09-20 17:42] VITALS: BMI 28.1
[2020-10-07 12:05] LABS: Absolute Lymphocyte Count 1.01 X10^3/uL (0.83-4.51); Absolute Neutrophil Count 3.6 X10^3/uL (2.0-7.7); Basophil# 0.06 X10^3/uL; Basophil% 1.1 % (0-1); Eosinophil# 0.17 X10^3/uL; Hematocrit 47.6 % (40-54); Hemoglobin 15.8 g/dL (13.0-16.5); Lymphocyte # 1.01 X10^3/ul (4.0); Lymphocyte % 17.9 % (19-41); Mean Corp Hgb Conc 33.2 g/dL (32-36); Mean Corpuscular Hgb 31.4 pg (27.0-32.0); Mean Corpuscular Volume 94.6 fL (80-94); Mean Platelet Vol. 10.8 fl (6.2-12.0); Monocyte# 0.71 X10^3/uL; Monocyte% 12.6 % (0-10); NRBC Flagged by Analyzer 0 % (0-5); Neutrophil # 3.59 X10^3/uL (2.7-7.7); Neutrophil % 63.5 % (47-70); Platelet Count 172 K/mm3 (150-450); RBC Distribution Width CV 12.3 % (11.6-14.6); RBC Distribution Width SD 42.3 fl (35.1-43.9); Red Blood Count 5.03 M/mm3 (4.6-6.2); White Blood Count 5.7 K/mm3 (4.4-11.0)
[2020-10-07 12:30] LABS: AST(SGOT) 19 U/L (15-37); Alanine Aminotransfer ALT/SGPT 36 U/L (16-61); Albumin, Serum 3.7 g/dL (3.2-5.0); Alkaline Phosphatase 97 U/L (45-117); Anion Gap 4 (5-15); BUN 17 mg/dL (7-18); BUN/Creat Ratio 19.9 RATIO (10-20); Calcium,Total 8.7 mg/dL (8.5-10.1); Chloride 105 mmol/L (98-107); Creatinine, Serum 0.86 mg/dL (0.70-1.30); EST Glomerular Filtration Rate 99 mL/min (>60); Est Glom Filt Rate - Afr Amer 120 mL/min (>60); Globulin 3.6 g/dL (2.2-4.2); Glucose 134 mg/dL (74-106); Potassium 4.2 mmol/L (3.5-5.1); Protein, Total 7.3 g/dL (6.4-8.2); Sodium Level 139 mmol/L (136-145)
== END ==
LOC: MTLAB 11:07
PROVIDERS: PCP Nurse Practitioner; Referring Provider Internal Medicine Rheumatology; Visit Provider Internal Medicine Rheumatology
DX: D86.86 Sarcoid arthropathy (principal); D86.9 Sarcoidosis, unspecified; M72.2 Plantar fascial fibromatosis; K21.9 Gastro-esophageal reflux disease without esophagitis; I10 Essential (primary) hypertension; E11.9 Type 2 diabetes mellitus without complications; Z79.899 Other long term (current) drug therapy
CPT/HCPCS: 36415; 80053; 85025

== ENCOUNTER → 2020-12-09 10:46 | Outpatient (CLI) | payer OTHER, SELFPAY ==
[2020-12-09 12:45] LABS: Absolute Lymphocyte Count 1.18 X10^3/uL (0.83-4.51); Absolute Neutrophil Count 3.5 X10^3/uL (2.0-7.7); Basophil# 0.05 X10^3/uL; Basophil% 0.8 % (0-1); Eosinophil# 0.29 X10^3/uL; Eosinophils% 4.9 % (0-5); Hematocrit 47.5 % (40-54); Hemoglobin 15.9 g/dL (13.0-16.5); Lymphocyte # 1.18 X10^3/ul (0.83-4.51); Lymphocyte % 19.8 % (19-41); Mean Corp Hgb Conc 33.5 g/dL (32-36); Mean Corpuscular Hgb 31.4 pg (27.0-32.0); Mean Corpuscular Volume 93.7 fL (80-94); Mean Platelet Vol. 11.2 fl (6.2-12.0); Monocyte% 13.4 % (0-10); NRBC Flagged by Analyzer 0 % (0-5); Neutrophil # 3.51 X10^3/uL (2.7-7.7); Neutrophil % 59.1 % (47-70); Platelet Count 179 K/mm3 (150-450); RBC Distribution Width CV 12.9 % (11.6-14.6); Red Blood Count 5.07 M/mm3 (4.6-6.2)
[2020-12-09 13:00] LABS: AST(SGOT) 17 U/L (15-37); Alanine Aminotransfer ALT/SGPT 37 U/L (16-61); Albumin, Serum 3.7 g/dL (3.2-5.0); Alkaline Phosphatase 107 U/L (45-117); Anion Gap 5 (5-15); BUN 15 mg/dL (7-18); BUN/Creat Ratio 16.3 RATIO (10-20); Chloride 102 mmol/L (98-107); Creatinine, Serum 0.92 mg/dL (0.70-1.30); EST Glomerular Filtration Rate 92 mL/min (>60); Est Glom Filt Rate - Afr Amer 111 mL/min (>60); Globulin 3.6 g/dL (2.2-4.2); Glucose 129 mg/dL (74-106); Protein, Total 7.3 g/dL (6.4-8.2); Sodium Level 136 mmol/L (136-145)
== END ==
LOC: MTLAB 10:47
PROVIDERS: PCP Nurse Practitioner; Referring Provider Internal Medicine Rheumatology; Visit Provider Internal Medicine Rheumatology
DX: D86.86 Sarcoid arthropathy (principal); D86.9 Sarcoidosis, unspecified; K21.9 Gastro-esophageal reflux disease without esophagitis; I10 Essential (primary) hypertension; E11.9 Type 2 diabetes mellitus without complications; R51.9 Headache, unspecified; N20.0 Calculus of kidney; H93.13 Tinnitus, bilateral; G47.33 Obstructive sleep apnea (adult) (pediatric); Z86.011 Personal history of benign neoplasm of the brain; Z79.899 Other long term (current) drug therapy
CPT/HCPCS: 36415; 80053; 85025

== ENCOUNTER → 2021-02-25 11:22 | Outpatient (CLI) | payer OTHER, SELFPAY ==
[2021-01-13 07:41] VITALS: BMI 28.1
[2021-02-25 15:14] LABS: Absolute Lymphocyte Count 0.81 X10^3/uL (0.83-4.51); Absolute Neutrophil Count 3.5 X10^3/uL (2.0-7.7); Basophil# 0.03 X10^3/uL; Basophil% 0.6 % (0-1); Eosinophil# 0.21 X10^3/uL; Eosinophils% 4.1 % (0-5); Hematocrit 44.1 % (40-54); Hemoglobin 14.8 g/dL (13.0-16.5); Lymphocyte # 0.81 X10^3/ul (0.83-4.51); Lymphocyte % 15.7 % (19-41); Mean Corp Hgb Conc 33.6 g/dL (32-36); Mean Corpuscular Hgb 31.1 pg (27.0-32.0); Mean Corpuscular Volume 92.6 fL (80-94); Mean Platelet Vol. 10.8 fl (6.2-12.0); Monocyte# 0.57 X10^3/uL; Monocyte% 11.1 % (0-10); NRBC Flagged by Analyzer 0 % (0-5); Neutrophil # 3.48 X10^3/uL (2.7-7.7); Neutrophil % 67.5 % (47-70); Platelet Count 162 K/mm3 (150-450); RBC Distribution Width CV 12.9 % (11.6-14.6); RBC Distribution Width SD 43.8 fl (35.1-43.9); Red Blood Count 4.76 M/mm3 (4.6-6.2); White Blood Count 5.2 K/mm3 (4.4-11.0)
[2021-02-25 15:23] LABS: ALB/GLOB Ratio 1.1 RATIO (0.9-2.4); AST(SGOT) 19 U/L (15-37); Alanine Aminotransfer ALT/SGPT 32 U/L (16-61); Albumin, Serum 3.6 g/dL (3.2-5.0); Alkaline Phosphatase 119 U/L (45-117); Anion Gap 7 (5-15); BUN 13 mg/dL (7-18); BUN/Creat Ratio 13.2 RATIO (10-20); Calcium,Total 8.8 mg/dL (8.5-10.1); Chloride 104 mmol/L (98-107); Creatinine, Serum 0.98 mg/dL (0.70-1.30); EST Glomerular Filtration Rate 85 mL/min (>60); Est Glom Filt Rate - Afr Amer 103 mL/min (>60); Globulin 3.4 g/dL (2.2-4.2); Glucose 190 mg/dL (74-106); Potassium 3.4 mmol/L (3.5-5.1); Sodium Level 137 mmol/L (136-145)
== END ==
LOC: MTLAB 11:25
PROVIDERS: PCP Nurse Practitioner; Referring Provider Internal Medicine Rheumatology; Visit Provider Internal Medicine Rheumatology
DX: D86.86 Sarcoid arthropathy (principal); D86.9 Sarcoidosis, unspecified; K21.9 Gastro-esophageal reflux disease without esophagitis; I10 Essential (primary) hypertension; E11.9 Type 2 diabetes mellitus without complications; R51.9 Headache, unspecified; N20.0 Calculus of kidney; H93.13 Tinnitus, bilateral; Z86.011 Personal history of benign neoplasm of the brain; G47.33 Obstructive sleep apnea (adult) (pediatric); Z79.899 Other long term (current) drug therapy
CPT/HCPCS: 36415; 80053; 85025

== ENCOUNTER → 2021-05-12 10:59 | Outpatient (CLI) | payer OTHER, SELFPAY ==
[2021-05-12 12:15] LABS: Absolute Lymphocyte Count 0.94 X10^3/uL (0.83-4.51); Basophil# 0.04 X10^3/uL; Basophil% 0.6 % (0-1); Eosinophil# 0.18 X10^3/uL; Eosinophils% 2.9 % (0-5); Hematocrit 45.8 % (40-54); Hemoglobin 15.2 g/dL (13.0-16.5); Lymphocyte # 0.94 X10^3/ul (0.83-4.51); Lymphocyte % 15.3 % (19-41); Mean Corp Hgb Conc 33.2 g/dL (32-36); Mean Corpuscular Hgb 31.7 pg (27.0-32.0); Mean Corpuscular Volume 95.6 fL (80-94); Monocyte# 0.87 X10^3/uL; Monocyte% 14.1 % (0-10); NRBC Flagged by Analyzer 0 % (0-5); Neutrophil # 4.01 X10^3/uL (2.7-7.7); Neutrophil % 65.2 % (47-70); Platelet Count 151 K/mm3 (150-450); RBC Distribution Width CV 12.6 % (11.6-14.6); RBC Distribution Width SD 43.9 fl (35.1-43.9); Red Blood Count 4.79 M/mm3 (4.6-6.2); White Blood Count 6.2 K/mm3 (4.4-11.0)
[2021-05-12 12:53] LABS: ALB/GLOB Ratio 0.9 RATIO (0.9-2.4); AST(SGOT) 19 U/L (15-37); Alanine Aminotransfer ALT/SGPT 40 U/L (16-61); Albumin, Serum 3.3 g/dL (3.2-5.0); Alkaline Phosphatase 114 U/L (45-117); Anion Gap 6 (5-15); BUN 17 mg/dL (7-18); BUN/Creat Ratio 21.9 RATIO (10-20); Calcium,Total 8.5 mg/dL (8.5-10.1); Chloride 104 mmol/L (98-107); Creatinine, Serum 0.78 mg/dL (0.70-1.30); EST Glomerular Filtration Rate 111 mL/min (>60); Est Glom Filt Rate - Afr Amer 135 mL/min (>60); Globulin 3.6 g/dL (2.2-4.2); Glucose 163 mg/dL (74-106); Potassium 3.8 mmol/L (3.5-5.1); Protein, Total 6.9 g/dL (6.4-8.2); Sodium Level 137 mmol/L (136-145)
== END ==
LOC: MTLAB 11:00
PROVIDERS: PCP Nurse Practitioner; Referring Provider Internal Medicine Rheumatology; Visit Provider Internal Medicine Rheumatology
DX: D86.86 Sarcoid arthropathy (principal); D86.9 Sarcoidosis, unspecified; K21.9 Gastro-esophageal reflux disease without esophagitis; I10 Essential (primary) hypertension; E11.9 Type 2 diabetes mellitus without complications; R51.9 Headache, unspecified; N20.0 Calculus of kidney; H93.13 Tinnitus, bilateral; G47.33 Obstructive sleep apnea (adult) (pediatric); Z79.899 Other long term (current) drug therapy; Z86.011 Personal history of benign neoplasm of the brain
CPT/HCPCS: 36415; 80053; 85025

== ENCOUNTER → 2021-06-09 07:09 | Outpatient (CLI) | payer OTHER, SELFPAY ==
--- NOTE | 2021-06-09 07:12 | CT_ITS ---
EXAM: CT CHEST AND ABDOMEN WITH INTRAVENOUS CONTRAST CLINICAL INDICATION: LYMPHADENOPATHY TECHNIQUE: Helically acquired images were obtained of the chest and abdomen with intravenous contrast. This CT exam was performed using one or more of the following dose reduction techniques: automated exposure control, adjustment of the mA and/or kV according to patient size, and/or use of iterative reconstruction technique. This report was created using [employer] report generation technology. Oral contrast was administered. Coronal and sagittal reformatted images were created and reviewed. CONTRAST: 100 mL Isovue-370 COMPARISON: 01/29/2020 FINDINGS: CHEST: LUNGS AND PLEURAL SPACES: Multiple bilateral parenchymal pulmonary nodules are redemonstrated. The largest nodule in the anterior right middle lobe measures 2.0 x 2.1 cm (previously measured 1.1 x 2.0 cm). Nodule in the left lower lobe on image 69 of series 6 currently measures 1.2 x 1.5 cm (previously measured 0.8 x 1.1 cm. No intralobular septal thickening. No honeycombing. No pleural effusion or thickening. No pneumothorax. HEART: Unremarkable. Heart size is normal. No pericardial effusion. MEDIASTINUM: Redemonstration of mediastinal and bilateral hilar adenopathy. Lymph nodes are stable in size since the prior study. For instance, subcarinal adenopathy measures 3.6 x 2.3 cm (comparing image 53 of series 2 of the current study with image 53 of series 2 of the prior study). Esophagus is unremarkable. No hiatal hernia. THYROID: Unremarkable. No thyroid lesions. ABDOMEN: LIVER: Unremarkable. Homogeneous. No focal mass. GALLBLADDER AND BILE DUCTS: Gallbladder surgically absent. No intra- or extrahepatic biliary ductal dilation. PANCREAS: Unremarkable. No focal cystic or solid mass. SPLEEN: The spleen is enlarged measuring up to 16 cm in craniocaudal length. ADRENALS: Unremarkable. No nodules. KIDNEYS AND URETERS: Nonobstructing calculus in the inferior right kidney. No hydronephrosis. Very small right renal ankle cysts measure 4-5 mm. No required imaging follow-up needed given high likelihood of benign nature. Normal renal size and position. STOMACH AND BOWEL: Unremarkable. No stomach or bowel distention. No focal inflammatory change. INTRAPERITONEAL SPACE: Unremarkable. No ascites or other fluid collection. No free air. CHEST and ABDOMEN: BONES/JOINTS: No destructive bony process. SOFT TISSUES: Unremarkable. No discrete abdominal wall hernia. VASCULATURE: Unremarkable. Aorta is non-dilated. No aortic dissection. No obvious central pulmonary embolism although this study was not performed with the pulmonary embolism protocol. LYMPH NODES: Upper abdominal adenopathy just above the left renal artery measuring up to 1.1 x 1.[address]/CT Chest AND Abd W/ Contrast IMPRESSION: 1. Increased size of multiple pulmonary nodules, as above. 2. Stable mediastinal and bilateral hilar adenopathy. 3. Splenomegaly. 4. Upper abdominal adenopathy just above the left renal artery measuring up to 1.1 x 1.6 cm is stable. Electronically Signed: Bryant Hubbard MD ([place]) at 9:31 EDT , Service support ,
== END ==
LOC: CT 07:10
PROVIDERS: PCP Nurse Practitioner; Referring Provider Nurse Practitioner; Visit Provider Nurse Practitioner
DX: R59.1 Generalized enlarged lymph nodes (principal)
CPT/HCPCS: 71260; 74160; Q9967

== ENCOUNTER → 2021-08-06 11:08 | Outpatient (CLI) | payer OTHER, SELFPAY ==
[2021-08-06 15:26] LABS: Absolute Neutrophil Count 3.2 X10^3/uL (2.0-7.7); Basophil# 0.04 X10^3/uL; Basophil% 0.8 % (0-1); Eosinophil# 0.18 X10^3/uL; Eosinophils% 3.7 % (0-5); Hematocrit 47.8 % (40-54); Hemoglobin 16.1 g/dL (13.0-16.5); Lymphocyte % 16.3 % (19-41); Mean Corp Hgb Conc 33.7 g/dL (32-36); Mean Corpuscular Hgb 31.6 pg (27.0-32.0); Mean Corpuscular Volume 93.9 fL (80-94); Mean Platelet Vol. 11.4 fl (6.2-12.0); Monocyte# 0.66 X10^3/uL; Monocyte% 13.5 % (0-10); NRBC Flagged by Analyzer 0 % (0-5); Neutrophil # 3.17 X10^3/uL (2.7-7.7); Neutrophil % 64.7 % (47-70); Platelet Count 169 K/mm3 (150-450); RBC Distribution Width CV 12.7 % (11.6-14.6); RBC Distribution Width SD 43.8 fl (35.1-43.9); Red Blood Count 5.09 M/mm3 (4.6-6.2); White Blood Count 4.9 K/mm3 (4.4-11.0)
[2021-08-06 15:45] LABS: ALB/GLOB Ratio 1.1 RATIO (0.9-2.4); AST(SGOT) 20 U/L (15-37); Alanine Aminotransfer ALT/SGPT 39 U/L (16-61); Albumin, Serum 3.8 g/dL (3.2-5.0); Alkaline Phosphatase 102 U/L (45-117); Anion Gap 9 (5-15); BUN 14 mg/dL (7-18); Calcium,Total 8.8 mg/dL (8.5-10.1); Chloride 102 mmol/L (98-107); Creatinine, Serum 0.93 mg/dL (0.70-1.30); EST Glomerular Filtration Rate 90 mL/min (>60); Est Glom Filt Rate - Afr Amer 108 mL/min (>60); Globulin 3.6 g/dL (2.2-4.2); Glucose 195 mg/dL (74-106); Potassium 3.6 mmol/L (3.5-5.1); Protein, Total 7.4 g/dL (6.4-8.2); Sodium Level 137 mmol/L (136-145)
== END ==
LOC: MTLAB 11:09
PROVIDERS: PCP Nurse Practitioner; Referring Provider Internal Medicine Rheumatology; Visit Provider Internal Medicine Rheumatology
DX: D86.86 Sarcoid arthropathy (principal); D86.9 Sarcoidosis, unspecified; E11.9 Type 2 diabetes mellitus without complications; I10 Essential (primary) hypertension; K21.9 Gastro-esophageal reflux disease without esophagitis; R51.9 Headache, unspecified; N20.0 Calculus of kidney; H93.13 Tinnitus, bilateral
CPT/HCPCS: 36415; 80053; 85025

== ENCOUNTER 2021-09-09 12:13 | Outpatient (CLI) | payer OTHER, SELFPAY ==
[2021-09-09 12:20] VITALS: BP 141/85; PULSE 78; RESP 16; TEMP 36.4; O2SAT 94; BMI 28.5
[2021-09-09] MEDS: 0.9% Saline Lock 10 ML Syringe IV (12:21)
[2021-09-09 12:51] VITALS: BP 122/79; PULSE 76; RESP 16; TEMP 36.8; O2SAT 97
[2021-09-09 13:52] VITALS: BP 137/83; PULSE 75; RESP 16; TEMP 36.9; O2SAT 95
== END 2021-09-09 23:59 | disposition home or self-care (01) ==
LOC: MS3OUT 12:13 → MS3 12:14
PROVIDERS: PCP Nurse Practitioner; Referring Provider Nurse Practitioner Acute Care; Visit Provider Nurse Practitioner Acute Care
DX: Z23 Encounter for immunization (principal); U07.1 COVID-19
CPT/HCPCS: J7050; M0245; Q0245; A4216

== ENCOUNTER 2021-11-03 10:41 | Outpatient (CLI) | payer OTHER, SELFPAY ==
[2021-11-03 12:01] LABS: Absolute Lymphocyte Count 0.76 X10^3/uL (0.83-4.51); Absolute Neutrophil Count 2.6 X10^3/uL (2.0-7.7); Basophil# 0.04 X10^3/uL; Basophil% 0.9 % (0-1); Eosinophil# 0.16 X10^3/uL; Eosinophils% 3.8 % (0-5); Hematocrit 47.8 % (40-54); Hemoglobin 16.4 g/dL (13.0-16.5); Lymphocyte # 0.76 X10^3/ul (0.83-4.51); Mean Corp Hgb Conc 34.3 g/dL (32-36); Mean Corpuscular Hgb 32.3 pg (27.0-32.0); Mean Corpuscular Volume 94.1 fL (80-94); Mean Platelet Vol. 10.2 fl (6.2-12.0); Monocyte# 0.67 X10^3/uL; Monocyte% 15.8 % (0-10); NRBC Flagged by Analyzer 0 % (0-5); Neutrophil # 2.57 X10^3/uL (2.7-7.7); Neutrophil % 60.8 % (47-70); Platelet Count 190 K/mm3 (150-450); RBC Distribution Width CV 12.9 % (11.6-14.6); RBC Distribution Width SD 44.3 fl (35.1-43.9); Red Blood Count 5.08 M/mm3 (4.6-6.2); White Blood Count 4.2 K/mm3 (4.4-11.0)
[2021-11-03 12:21] LABS: ALB/GLOB Ratio 1.1 RATIO (0.9-2.4); AST(SGOT) 20 U/L (15-37); Alanine Aminotransfer ALT/SGPT 34 U/L (16-61); Alkaline Phosphatase 80 U/L (45-117); Anion Gap 4 (5-15); BUN 13 mg/dL (7-18); BUN/Creat Ratio 13.1 RATIO (10-20); Calcium,Total 9.4 mg/dL (8.5-10.1); Chloride 111 mmol/L (98-107); Creatinine, Serum 0.99 mg/dL (0.70-1.30); EST Glomerular Filtration Rate 83 mL/min (>60); Est Glom Filt Rate - Afr Amer 101 mL/min (>60); Globulin 3.6 g/dL (2.2-4.2); Glucose 138 mg/dL (74-106); Potassium 3.9 mmol/L (3.5-5.1); Protein, Total 7.6 g/dL (6.4-8.2); Sodium Level 140 mmol/L (136-145)
== END 2021-11-03 23:59 | disposition home or self-care (01) ==
LOC: MTLAB 10:42
PROVIDERS: PCP Nurse Practitioner; Referring Provider Internal Medicine Rheumatology; Visit Provider Internal Medicine Rheumatology
DX: D86.86 Sarcoid arthropathy (principal); E11.9 Type 2 diabetes mellitus without complications; K21.9 Gastro-esophageal reflux disease without esophagitis; I10 Essential (primary) hypertension; R51.9 Headache, unspecified; N20.0 Calculus of kidney; H93.13 Tinnitus, bilateral; G47.33 Obstructive sleep apnea (adult) (pediatric); Z79.899 Other long term (current) drug therapy; Z86.011 Personal history of benign neoplasm of the brain
CPT/HCPCS: 36415; 80053; 85025

== ENCOUNTER 2021-11-17 08:16 | Outpatient (CLI) | payer OTHER, SELFPAY ==
--- NOTE | 2021-11-17 12:42 | PFTCOMP ---
COMPLETE PULMONARY FUNCTION TEST INTERPRETATION Brief HPI: Patient is a 56 year old male, currently under the care of myself, who presents to [facility] for complete pulmonary function tests secondary to diagnosis of sarcoidosis. Respiratory therapist reports good effort and reproducible results. Interpretation: Forced expiration spirometry shows no large airways obstructive ventilatory defect with an FEV1 of 72% predicted. There is no significant bronchodilator response by strict ATS criteria. Spirograms are of good quality and plateau normally. The respiratory flow volume loop shows a normal pattern. Lung volumes by body plethysmography show a normal total lung capacity at 5.36 L, 91% predicted. All other lung volumes are within normal limits. Diffusion capacity by carbon monoxide is normal at 90% predicted. The airway resistance is normal. Compared to previous pulmonary function tests from 08/19/2020, there is been a significant improvement in lung volumes. Impression: Grossly normal pulmonary function test with normalization compared to July 2020.
== END 2021-11-17 23:59 | disposition home or self-care (01) ==
LOC: PSN 08:17
PROVIDERS: PCP Nurse Practitioner; Referring Provider Internal Medicine Critical Care Medicine; Visit Provider Internal Medicine Critical Care Medicine
DX: D86.0 Sarcoidosis of lung (principal)
CPT/HCPCS: 94060; 94726; 94729

== ENCOUNTER 2022-01-28 10:00 | Outpatient (RCR) | payer OTHER, SELFPAY ==
--- NOTE | 2021-12-09 09:51 | HP.PTEVAL_ITS ---
Patient's Visit Information YOLY SLAUGHTER is a 56 year old M referred to Physical Therapy by GUERLINE Shane with a diagnosis of neck pain. Date of Evaluation: 12/09/21 Physical Therapist: ANANTH Hearn - Visit Plan Frequency: 2x /Week Duration: 3 Weeks Plan: 2X/ week for 3 weeks for MT to the mid trap and upper c-spine, c-spine ROM, scapular strength and postural exercises with HEP. HEP: mid rows (blue), corner stretch, thoracic ext over chair with hands behind head to support neck - Subjective He started with BAY since a month before his brain tumor was taken out. 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 Pt has had a BAY for 4 years. He has been on meds and the last one caused him an allergic reaction. His neck has been hurting for 3 weeks now. He had an x-ray and it was negative. Louann wants to do a CT scan but has to do PT first. He goes to a neurologist in [facility] [place]. Louann wants him to go to [facility]. The new med caused him to have hives and it could take up to 3 weeks to get rid of the hives. They are going to put him on a new med and he is not a new med. His BAY is always there and he feels that his eyes are going to pop out of his head. He is concerned that he has something with his cerebral spinal fluid. He does not sleep well. Nothing dents his BAY... it can ramp up to the point he was crying cause of the pain. Pt reports that he only can get rid of the pain if he gets high and can't do that that often. He was on flexeril and anti-inflamm meds and he could not work with it and could not stay awake so he does not take it. Pt has been to a chiropractor before and was told his spine was good. He has not had a MT. He works 40+ hours a week. - Pain BAY Pain Intensity (Out of 10): 6 Pain Intensity Range: 8 neck pain Pain Intensity (Out of 10): 5 - Objective R handed: R 101# and L 104#. c-spine AROM: flexion 100%, Ext 25%, SB B 50%, Rot B 75% B. UE AROM: WFL. UE MMT: Shoulder flex/abd/ER/IR bicep 4/5 B. palpation: Mid trap tightness and painful to the touch,. Posture: sits with rounded shoulders and increase thoracic kyphosis and fw head posture. Corner Stretch: pt felt a little twinge of scapular pain if pushed too hard into it - Balance/Special Test Scores Oswestry Neck Score: 16 - Goals Goal 1:: I HEP Goal Time Frame: 4-6 Weeks Goal 2:: Sit with upright posture during treatment sessions Goal Time Frame: 4-6 Weeks Goal 3:: Decrease BAY from 01/30 constant to 10 Goal Time Frame: 4-6 Weeks Goal 4:: Increase C-spine AROM into ext and SB (at eval: 25%, SB B 50%) Goal Time Frame: 4-6 Weeks Goal 5:: Be able to sleep 4 hours at night Goal Time Frame: 4-6 Weeks - Rehabilitation Potential Rehabilitation Potential: Good - Anticipated Interventions Patient/Client Instruction: Educate patient on: Condition, Plan of Care For the Purpose of:: To decrease pain, To increase ROM, To improve nutrient delivery to tissue, To improve muscle performance and motor function, To improve ability to perform ADL's, To increase tolerance to activity/condition/position, To decrease level of supervision to perform tasks, To improve ability of physical actions for home/community/work/leisure, To improve health of tissue, To decrease soft tissue restriction, To increase flexibility/ROM Therapeutic Exercise to Include: Strength training, Postural training, Flexibilty training, Passive ROM, Active ROM, Scapular Strength/Stabilization For the Purpose of:: To decrease pain, To increase ROM, To improve nutrient delivery to tissue, To improve muscle performance and motor function, To improve ability to perform ADL's, To increase tolerance to activity/condition/position, To decrease level of supervision to perform tasks, To improve health of tissue, To decrease soft tissue restriction, To increase flexibility/ROM Manual Therapy Techniques to Include: Passive ROM, Soft tissue mobilization For the Purpose of:: To decrease pain, To decrease swelling/inflammation, To increase ROM, To improve nutrient delivery to tissue, To improve muscle performance and motor function, To increase tolerance to activity/condition/position, To improve performance and independence with ADL's, To improve ability of physical actions for home/community/work/leisure, To improve health of tissue, To decrease soft tissue restriction, To increase flexibility/ROM Thank you for the opportunity to evaluate your patient. For Medicare and Medicare HMO plans, please review the plan of care and approve it. It will need to be FAXED BACK to us at [phone] for Medicare purposes. For Medicare only, by signing this I certify the plan of care. Please let me know if there are questions or concerns regarding this plan of care. Physician Signature: Date:
--- NOTE | 2021-12-31 10:44 | HP.PTREVAL ---
Louann Alejandre, METAL [employer]OR [employer]SEMBLER-[employer], It has been my pleasure to treat YOLY SLAUGHTER over the last 5 visits for neck pain. Please see the progress note below for an update on the physical therapy plan of care! Subjective: Pt reports that he has had BAY pain for 4 years and is not finding much relief. Having difficulty sleeping. In PT, pt thinks that STM has been the most helpful especially when it was more at the neck area instead of UT/scap area. Objective/Function: Pt reported that his neck felt 'better' after STM. Pt fatigued quickly w/the postural strengthening. Plan Plan: 2X/ week for 3 weeks for MT to the mid trap and upper c-spine, c-spine ROM, scapular strength and postural exercises with HEP. Balance/Gait/Functional tests - Balance/Special Test Scores Oswestry Neck Score: 16 Goals Goal 1:: I HEP Goal Time Frame: 4-6 Weeks Goal 2:: Sit with upright posture during treatment sessions Goal Time Frame: 4-6 Weeks Goal 3:: Decrease BAY from 6/10 constant to 4/10 Goal Time Frame: 4-6 Weeks Goal 4:: Increase C-spine AROM into ext and SB (at eval: 25%, SB B 50%) Goal Time Frame: 4-6 Weeks Goal 5:: Be able to sleep 4 hours at night Goal Time Frame: 4-6 Weeks Anticipated Interventions Patient/Client Instruction: Educate patient on: Condition, Plan of Care For the Purpose of:: To decrease pain, To increase ROM, To improve nutrient delivery to tissue, To improve muscle performance and motor function, To improve ability to perform ADL's, To increase tolerance to activity/condition/position, To decrease level of supervision to perform tasks, To improve ability of physical actions for home/community/work/leisure, To improve health of tissue, To decrease soft tissue restriction, To increase flexibility/ROM Therapeutic Exercise to Include: Strength training, Postural training, Flexibilty training, Passive ROM, Active ROM, Scapular Strength/Stabilization For the Purpose of:: To decrease pain, To increase ROM, To improve nutrient delivery to tissue, To improve muscle performance and motor function, To improve ability to perform ADL's, To increase tolerance to activity/condition/position, To decrease level of supervision to perform tasks, To improve health of tissue, To decrease soft tissue restriction, To increase flexibility/ROM Manual Therapy Techniques to Include: Passive ROM, Soft tissue mobilization For the Purpose of:: To decrease pain, To decrease swelling/inflammation, To increase ROM, To improve nutrient delivery to tissue, To improve muscle performance and motor function, To increase tolerance to activity/condition/position, To improve performance and independence with ADL's, To improve ability of physical actions for home/community/work/leisure, To improve health of tissue, To decrease soft tissue restriction, To increase flexibility/ROM Please do not hesitate to contact me at [phone] by phone or if you have questions or concerns regarding this new plan of care! Sincerely, Paulette Pavon, MPT
--- NOTE | 2022-01-28 10:30 | HP.PTDCSUM ---
It has been my pleasure to treat YOLY SLAUGHTER referred by GUERLINE Shane, with the diagnosis of neck pain for a total of 11 visit(s). Discharge Date: 01/28/22 Please see the following information for a summary of their discharge status. Subjective: Pt reports that he is no better. He is trying to get ahold of a neurologist in [facility] for different medication. He has noticed that noises do set off his symptoms and will let the Dr know that. He thinks that PT has helped his neck for an hour or so some but nothing for his BAY. He feels like his head is bruised and sensitive. He feels that he still has liquid on his neck. BAY Pain Intensity (Out of 10): 6 neck pain Pain Intensity (Out of 10): 2 back pain Pain Intensity (Out of 10): 5 % Improvement: 10 Objective/Function: C-spine AROM: Flexion 100%, Ext 50%, Rot B 75%, SB B 75%. Goal 1:: I HEP Goal Progress: Goal Met Goal 2:: Sit with upright posture during treatment sessions Goal Progress: Progressing Goal 3:: Decrease BAY from 6/10 constant to 4/10 Goal Progress: Not Progressing Goal 4:: Increase C-spine AROM into ext and SB (at eval: 25%, SB B 50%) Goal Progress: Goal Met Goal 5:: Be able to sleep 4 hours at night Goal Progress: Not Progressing Plan: Continue with HEP, return to a neurologist for new meds or further diagnostics. Discharge Comments: DC PT to physician reassessment If there are questions or concerns regarding this patient's physical therapy, please feel free to call me at [phone]. Thank you for the referral of this patient. Sincerely, Paulette Pavon, MPT Balance/Gait/Functional tests - Balance/Special Test Scores Oswestry Neck Score: 17
== END 2022-01-28 14:48 | disposition home or self-care (01) ==
LOC: PT 10:00
PROVIDERS: PCP Nurse Practitioner; Referring Provider Nurse Practitioner; Visit Provider Nurse Practitioner
DX: M54.2 Cervicalgia (principal)
CPT/HCPCS: 97110; 97140; 97161; 97530

== ENCOUNTER → 2022-01-28 | Outpatient (CLI) | payer OTHER, SELFPAY ==
[2022-01-28 12:07] LABS: Absolute Lymphocyte Count 0.89 X10^3/uL (0.83-4.51); Absolute Neutrophil Count 3.8 X10^3/uL (2.0-7.7); Basophil# 0.04 X10^3/uL; Basophil% 0.7 % (0-1); Eosinophil# 0.23 X10^3/uL; Eosinophils% 3.9 % (0-5); Hematocrit 48.2 % (40-54); Hemoglobin 16.4 g/dL (13.0-16.5); Lymphocyte # 0.89 X10^3/ul (0.83-4.51); Lymphocyte % 15.2 % (19-41); Mean Corpuscular Hgb 32.3 pg (27.0-32.0); Mean Corpuscular Volume 94.9 fL (80-94); Monocyte# 0.89 X10^3/uL; Monocyte% 15.2 % (0-10); NRBC Flagged by Analyzer 0 % (0-5); Neutrophil # 3.75 X10^3/uL (2.7-7.7); Platelet Count 187 K/mm3 (150-450); RBC Distribution Width CV 13.1 % (11.6-14.6); RBC Distribution Width SD 45.5 fl (35.1-43.9); Red Blood Count 5.08 M/mm3 (4.6-6.2); White Blood Count 5.9 K/mm3 (4.4-11.0)
[2022-01-28 13:05] LABS: ALB/GLOB Ratio 1.1 RATIO (0.9-2.4); AST(SGOT) 48 U/L (15-37); Alanine Aminotransfer ALT/SGPT 70 U/L (16-61); Albumin, Serum 4.1 g/dL (3.2-5.0); Alkaline Phosphatase 98 U/L (45-117); Anion Gap 9 (5-15); BUN 15 mg/dL (7-18); BUN/Creat Ratio 16.6 RATIO (10-20); Calcium,Total 9.3 mg/dL (8.5-10.1); Chloride 100 mmol/L (98-107); Creatinine, Serum 0.91 mg/dL (0.70-1.30); EST Glomerular Filtration Rate 93 mL/min (>60); Est Glom Filt Rate - Afr Amer 112 mL/min (>60); Globulin 3.8 g/dL (2.2-4.2); Glucose 127 mg/dL (74-106); Potassium 3.5 mmol/L (3.5-5.1); Protein, Total 7.9 g/dL (6.4-8.2); Sodium Level 136 mmol/L (136-145)
== END | disposition home or self-care (01) ==
LOC: MTLAB 10:33
PROVIDERS: PCP Nurse Practitioner; Referring Provider Internal Medicine Rheumatology; Visit Provider Internal Medicine Rheumatology
DX: D86.86 Sarcoid arthropathy (principal); E11.9 Type 2 diabetes mellitus without complications; K21.9 Gastro-esophageal reflux disease without esophagitis; I10 Essential (primary) hypertension; R51.9 Headache, unspecified; N20.0 Calculus of kidney; H93.13 Tinnitus, bilateral; G47.33 Obstructive sleep apnea (adult) (pediatric); Z86.011 Personal history of benign neoplasm of the brain; Z79.899 Other long term (current) drug therapy
CPT/HCPCS: 36415; 80053; 85025

== ENCOUNTER → 2022-03-06 | Outpatient (CLI) | payer OTHER, SELFPAY ==
[2022-03-06 15:40] LABS: ALB/GLOB Ratio 1.1 RATIO (0.9-2.4); AST(SGOT) 19 U/L (15-37); Alanine Aminotransfer ALT/SGPT 34 U/L (16-61); Albumin, Serum 3.8 g/dL (3.2-5.0); Alkaline Phosphatase 97 U/L (45-117); Anion Gap 7 (5-15); BUN 17 mg/dL (7-18); BUN/Creat Ratio 16.3 RATIO (10-20); Calcium,Total 9.3 mg/dL (8.5-10.1); Chloride 100 mmol/L (98-107); Creatinine, Serum 1.04 mg/dL (0.70-1.30); EST Glomerular Filtration Rate 79 mL/min (>60); Est Glom Filt Rate - Afr Amer 96 mL/min (>60); Globulin 3.5 g/dL (2.2-4.2); Glucose 181 mg/dL (74-106); Potassium 3.6 mmol/L (3.5-5.1); Protein, Total 7.3 g/dL (6.4-8.2); Sodium Level 136 mmol/L (136-145)
== END | disposition home or self-care (01) ==
LOC: MTLAB 11:24
PROVIDERS: PCP Nurse Practitioner Family; Referring Provider Internal Medicine Rheumatology; Visit Provider Internal Medicine Rheumatology
DX: D86.86 Sarcoid arthropathy (principal); E11.9 Type 2 diabetes mellitus without complications; K21.9 Gastro-esophageal reflux disease without esophagitis; I10 Essential (primary) hypertension; R51.9 Headache, unspecified; N20.0 Calculus of kidney; H93.13 Tinnitus, bilateral; G47.33 Obstructive sleep apnea (adult) (pediatric); Z86.011 Personal history of benign neoplasm of the brain
CPT/HCPCS: 36415; 80053

== ENCOUNTER → 2022-03-07 | Outpatient (CLI) | payer OTHER, SELFPAY ==
--- NOTE | 2022-03-07 09:57 | US_ITS ---
STUDY: ABDOMINAL ULTRASOUND - RIGHT UPPER QUADRANT REASON FOR VISIT: Male, 56 years old ELEVATED LIVER ENZYMES TECHNIQUE: Ultrasound evaluation of the right upper quadrant was performed with real-time and static duncan-scale imaging. TECHNICAL QUALITY: Adequate. COMPARISON: CT of the abdomen dated 06/09/2021 FINDINGS: Liver: The liver measures 19.1 cm. There is increased echogenicity consistent with fatty infiltration. The bile ducts are within normal limits. There is hepatic color flow. The direction of portal flow is hepatopetal. There is no demonstrated mass lesion. Gallbladder: The patient is status post cholecystectomy. Common Bile Duct (C.B.D.): The common bile duct measures 5.2 mm. Pancreas: Normal size of the head, body and tail of the pancreas. There is normal echogenicity of the pancreas. There is no demonstrated pancreatic mass or cyst. Right Kidney: Normal size of the right kidney. The right kidney measures 11.2 cm in length. Normal renal cortex. There is no demonstrated renal mass or cyst. There is no right hydronephrosis. US/Abdomen Limited IMPRESSION: Fatty infiltration of the liver associated with hepatomegaly. Electronically Signed: Carol Mott MD at 18:21 EDT ,
== END | disposition home or self-care (01) ==
PROVIDERS: PCP Nurse Practitioner Family; Referring Provider Internal Medicine Rheumatology; Visit Provider Internal Medicine Rheumatology
DX: K76.0 Fatty (change of) liver, not elsewhere classified (principal); E11.9 Type 2 diabetes mellitus without complications; D86.86 Sarcoid arthropathy; K21.9 Gastro-esophageal reflux disease without esophagitis; I10 Essential (primary) hypertension; R51.9 Headache, unspecified; N20.0 Calculus of kidney; H93.13 Tinnitus, bilateral; G47.33 Obstructive sleep apnea (adult) (pediatric); Z86.011 Personal history of benign neoplasm of the brain; Z79.899 Other long term (current) drug therapy
CPT/HCPCS: 76705

== ENCOUNTER 2022-04-12 01:20 | Emergency (ER) | payer OTHER, SELFPAY ==
[2022-04-12 01:20] VITALS: BP 180/99; PULSE 75; RESP 18; TEMP 36.6; O2SAT 94; BMI 29.7
--- NOTE | 2022-04-12 01:41 | CT_ITS ---
STUDY: CT ABDOMEN AND PELVIS WITHOUT CONTRAST REASON FOR EXAM: Male, 56 years old. Kidney Stone RADIATION DOSAGE (If Supplied By Facility): CTDIvol = ( 9.41 ) mGy, DLP = ( 491.52 ) mGycm TECHNIQUE: Transaxial images were obtained from the dome of the diaphragm to the symphysis pubis without oral contrast, and without intravenous contrast. Sagittal and coronal images were reconstructed. Individualized dose optimization techniques were used for this CT. COMPARISON: 08/30/2017. FINDINGS: Lung bases reveal numerous nodules, some of the nodules are confluent and largest density seen in the right middle lobe measuring 3.4 x 1.9 cm on image 6, series 190. These findings are highly suggestive of metastatic disease. The visualized portions of the heart are within normal limits. Normal liver. There are surgical clips in the gallbladder fossa consistent with a prior cholecystectomy. There is mild to moderate splenomegaly. Normal pancreas. Normal bilateral adrenal glands. Right lower renal pole stone measuring 2.5 mm. Mild right hydronephrosis and hydroureter due to a distal right ureteral stone measuring 3.7 mm and is seen at the level of the distal SI joints. Tiny stone within the lower pole of the left kidney measuring 1.6 mm. Otherwise normal left kidney. Normal visualized stomach. Normal small intestine. The colon is incompletely distended with thickening of the wall with suggestion of diffuse colitis. Fatty attenuation throughout the wall along the right colon, may be associated with history of inflammatory bowel disease. The appendix is visualized and appears normal. There is mild atherosclerotic calcification of the abdominal aorta, without a demonstrated aneurysm. Normal inferior vena cava. Normal retroperitoneum. Normal urinary bladder. Mild fullness of the lymph nodes at the celiac axis/hepatic hilum and periaortic region of indeterminate clinical significance. Largest lymph node is seen in the left periaortic region measuring approximately 1.7 x 0.7 cm. In the context of neoplasm, cannot exclude metastatic disease. Small bilateral fat-containing inguinal hernias. Postoperative changes through the right anterolateral abdominal wall for hernia repair. There are diffuse degenerative changes of the visualized lumbar spine. CT/Abdomen/Pelvis without Cont IMPRESSION: Mild right hydronephrosis and hydroureter due to a 3.7 mm stone in the distal right ureter as described. Possible mild/early diffuse colitis with the sequela of previous inflammatory bowel disease not excluded. Correlation with clinical history recommended. No acute appendicitis or bowel obstruction. Status post cholecystectomy with splenomegaly. Nodular structures with spiculations in the bilateral lower lobes concerning for metastatic disease, correlation with history of neoplasm recommended. Mild lymph node prominence as described above in the upper abdomen and left periaortic region, cannot exclude metastatic if there is history of neoplasm. Electronically Signed: Myrna Sandoval MD at 2:58 EDT ,
--- NOTE | 2022-04-12 01:42 | EDS_ITS ---
HPI HPI - GI History of Present Illness Chief Complaint: Flank Pain Informant: patient Abdominal Pain/Flank Pain Onset: Hours Context: Gradual Onset Timing: Continuous Quality: Aching Location: Right Flank Current Severity: Severe Maximum Severity: Severe Worsened by: Nothing Relieved by: Nothing Nausea/Vomiting/Emesis GI Symptom: Positive for Nausea and Vomiting Onset: Today Quality: Positive for Nonbilious Diarrhea/Melena/Hematochezia GI Symptom: Negative for Diarrhea, Melena or Hematochezia Associated Symptoms Associated Symptoms: Negative for Dysuria, Frequency, Hematuria or Urgency Narrative Narrative: Patient states his abdomen was bothering him a little today but then he started vomiting just about an hour or so ago when the right flank pain hit worse. He states earlier it just felt like his stomach was upset and achy a little but now it feels like prior kidney stone. He has taken no medications for this prior to arrival. He denies any urinary symptoms or fevers. He has never needed surgery for a kidney stone in the past. He states he has passed a couple stones earlier this year but did not need to come to the ER since they were not as painful as this. Last time he had a CT was over a year ago. [facility] Medical History (Updated 04/12/22 @ 02:[address] Byron Moncada MD) Abnormal positron emission tomography (PET) scan Bilateral hearing loss Ejaculation blood Enlarged prostate Former smoker GERD (gastroesophageal reflux disease) Hematuria Hepatomegaly History of inguinal hernia History of renal stone Hyperglycemia Hypertriglyceridemia Insomnia Kidney stone on left side Lower abdominal pain Lower back pain Mediastinal lymphadenopathy Multiple lung nodules Nodule of left lung Type 2 diabetes mellitus Home Medications metformin 500 mg tablet 1,000 mg PO BID 10/31/18 [History Last Taken Unknown] methotrexate sodium 2.5 mg tablet 2.5 mg PO MO 09/09/21 [History Last Taken Unknown] cholecalciferol (vitamin D3) 25 mcg (1,000 unit) capsule 25 mcg PO DAILY 11/24/21 [History Last Taken Unknown] famotidine 10 mg tablet (Zantac-360 (famotidine)) 10 mg PO BID 04/12/22 [History Last Taken Unknown] hydrocodone-acetaminophen 5-325mg 5mg-325mg 1 tab PO Q4H PRN PRN Pain 2 days #12 TABLETS 04/12/22 [Rx Last Taken Unknown] ondansetron 4 mg disintegrating tablet 8 mg PO Q8H PRN PRN Nausea #16 tabs 04/12/22 [Rx Last Taken Unknown] verapamil 120 mg 24 hr capsule,extended release 120 mg PO DAILY 04/12/22 [History Last Taken Unknown] Allergy/AdvReac Type Severity Reaction Status Date / Time topiramate [From Topamax] AdvReac rash Verified 11/24/21 07:48 Family History Father Diabetes Surgical History H/O hernia repair Hx of cholecystectomy Social History Smoking Status: Never smoker alcohol intake: current alcohol intake frequency: holidays/special occasions only substance use type: marijuana ROS ROS ED Constitutional Constitutional ED: Denies chills or fever(s) Eyes Eyes: Denies change in vision or diplopia ENT ENT ED: Denies rhinorrhea or sore throat Cardiovascular Cardiovascular: Denies chest pain or palpitations Respiratory/Chest Respiratory/Chest: Denies cough or dyspnea Gastrointestinal Gastrointestinal: Reports abdominal pain, nausea and vomiting; Denies diarrhea Genitourinary Genitourinary ED: Reports flank pain; Denies dysuria or hematuria Musculoskeletal Musculoskeletal: Reports back pain; Denies neck pain Integumentary Denies abscess or rash Neurologic Neurologic: Denies headache(s), paresthesias or weakness Psychiatric Psychiatric: Denies anxiety or suicidal thoughts EXAM Physical Exam Const Vital Signs: 04/12/22 01:20 Temperature 97.8 F Temperature Source Oral Pulse Rate 75 Respiratory Rate 18 Blood Pressure 180/99 H Blood Pressure Mean 126 Pulse Ox 94 Oxygen Delivery Method Room Air Positive well nourished and well developed General Appearance ED: well developed and NAD HEENT Reports moist mucous membranes normocephalic and atraumatic Eyes PERRL and EOMs intact bilaterally Neck full ROM and supple Resp normal respiratory effort and clear to auscultation bilaterally Cardio regular rate, regular rhythm and no murmurs GI non-tender and non-distended Auscultation: normoactive bowel sounds Palpation: soft Back/Spine General Back: CVA tenderness right and other FROM Extremity normal to inspection General Extremety ED: Negative for edema, pulses abnormal or tenderness General Extremity: Negative for edema or pulses abnormal Neuro oriented x3, CN's II-XII intact bilaterally and no sensory deficits noted Sensorium / Orientation: awake and alert Motor Exam: strength 5/5 throughout Skin no rashes or lesions noted and no wounds MDM MDM MDM Narrative Medical decision making narrative: Patient was given Zofran and Toradol, he feels much better. Will prescribe anal gesics and Zofran for a mid ureteral stone that will likely pass with expectant management. Given filters to go as well. With regards to the CT interpretation, he does not have symptoms of colitis, nor does he have any abdominal tenderness to suggest focal colitis. Lab Data Attestation: I reviewed the patient's lab results. Labs: Laboratory Results - last 24 hr 04/12/22 02:20 Urine Color Yellow Urine Clarity Sl. Cloudy Urine pH 5.0 Ur Specific [place] 1.025 Urine Protein 30 H Urine Glucose (UA) 50 H Urine Ketones Negative Urine Occult Blood 250 H Urine Nitrite Negative Urine Bilirubin Negative Urine Urobilinogen Normal Ur Leukocyte Esterase 25 H Urine RBC > 100 SEEN Urine WBC 0-5 SEEN Ur Squamous Epith Cells 0 SEEN Urine Bacteria RARE Urine Mucus RARE Radiography Diagnostic Testing: Clinical Impression(s) from Imaging Studies Abdomen/Pelvis CT 04/12/22 01:41 IMPRESSION: Mild right hydronephrosis and hydroureter due to a 3.7 mm stone in the distal right ureter as described. Possible mild/early diffuse colitis with the sequela of previous inflammatory bowel disease not excluded. Correlation with clinical history recommended. No acute appendicitis or bowel obstruction. Status post cholecystectomy with splenomegaly. Nodular structures with spiculations in the bilateral lower lobes concerning for metastatic disease, correlation with history of neoplasm recommended. Mild lymph node prominence as described above in the upper abdomen and left periaortic region, cannot exclude metastatic if there is history of neoplasm. Electronically Signed: Myrna Sandoval MD at 2:58 EDT , Discharge Plan Triage Chief Complaint: Flank Pain ED Provider: Byron Moncada Dx/Rx/DC Orders Clinical Impression: Ureterolithiasis, Renal colic on right side Instructions: ED Kidney Stone w/ Colic Prescriptions: New hydrocodone-acetaminophen [hydrocodone-acetaminophen] 5-325 mg tablet 1 tab PO Q4H PRN PRN (Reason: Pain) 2 Days Qty: 12 0RF ondansetron [ondansetron] 4 mg tablet,disintegrating 8 mg PO Q8H PRN PRN (Reason: Nausea) Qty: 16 0RF No Action metformin 500 mg tablet 1,000 mg PO BID Label Comments: patient states no script currently for refill cholecalciferol (vitamin D3) 25 mcg (1,000 unit) capsule 25 mcg PO DAILY methotrexate sodium 2.5 mg tablet 2.5 mg PO MO Label Comments: TAKE 6 TABLETS BY MOUTH once a week famotidine [Zantac-360 (famotidine)] 10 mg Tablet 10 mg PO BID verapamil 120 mg capsule,ext rel. pellets 24 hr 120 mg PO DAILY Label Comments: TAKE 1 CAPSULE BY MOUTH EVERY DAY Primary Care Provider: Liberty Junior Referrals: Theodore Harris MD [Med Staff - Active Staff] - 10-14 Days if not better Liberty Junior, BUFFER OPERATOR-C [Primary Care Provider] - Disposition Disposition: Home, Self Care Discharge Date/Time: 04/12/22 03:10
[2022-04-12] MEDS: Ketorolac 30 MG/ML Syringe IV (01:48)
[2022-04-12] MEDS: Ondansetron 4 MG/2 ML Vial IV (01:48)
[2022-04-12 02:31] LABS: Squamous Epithelial Cells - UA 0 SEEN /hpf (0-5)
[2022-04-12 02:35] LABS: Color, Urine Yellow (Yellow); Glucose, Dipstick 50 mg/dl (Normal); Ketone-Dipstick Negative (Negative); Leukocyte Esterase-Dipstick 25 /ul (Negative); Nitrite-Dipstick Negative (Negative); Occult Blood-Urine 250 /ul (Negative); Protein-Dipstick 30 mg/dl (Negative); Specific Gravity, Urine 1.025 (1.002-1.030); Urine Bilirubin Dipstick Negative (Negative); Urine Clarity Sl. Cloudy (Clear); Urine Urobilinogen Normal (Normal)
[2022-04-12 03:08] LABS: Bacteria RARE /hpf (None Seen); Mucous, Urine RARE /hpf (<or=2+); Red Blood Cells-Urine > 100 SEEN /hpf (0-5); White Blood Cells 0-5 SEEN /hpf (0-5)
== END 2022-04-12 03:10 | disposition home or self-care (01) ==
PROVIDERS: Emergency Provider Emergency Medicine; PCP Nurse Practitioner Family; Visit Provider Emergency Medicine
DX: N13.2 Hydronephrosis with renal and ureteral calculous obstruction (principal); E11.9 Type 2 diabetes mellitus without complications; R11.2 Nausea with vomiting, unspecified; K92.1 Melena; R19.7 Diarrhea, unspecified; Z79.84 Long term (current) use of oral hypoglycemic drugs
CPT/HCPCS: 74176; 81001; 96374; 96375; 99283; A4216; J2405

== ENCOUNTER → 2022-04-30 | Outpatient (CLI) | payer OTHER, SELFPAY ==
[2022-04-30 12:11] LABS: Absolute Lymphocyte Count 0.66 X10^3/uL (0.83-4.51); Basophil# 0.04 X10^3/uL; Basophil% 0.9 % (0-1); Eosinophils% 4.3 % (0-5); Hematocrit 44.7 % (40-54); Hemoglobin 15.5 g/dL (13.0-16.5); Lymphocyte # 0.66 X10^3/ul (0.83-4.51); Lymphocyte % 14.1 % (19-41); Mean Corp Hgb Conc 34.7 g/dL (32-36); Mean Corpuscular Hgb 32.2 pg (27.0-32.0); Mean Corpuscular Volume 92.9 fL (80-94); Mean Platelet Vol. 10.9 fl (6.2-12.0); Monocyte# 0.75 X10^3/uL; NRBC Flagged by Analyzer 0 % (0-5); Neutrophil # 2.97 X10^3/uL (2.7-7.7); Neutrophil % 63.4 % (47-70); Platelet Count 175 K/mm3 (150-450); RBC Distribution Width CV 12.7 % (11.6-14.6); RBC Distribution Width SD 43.3 fl (35.1-43.9); Red Blood Count 4.81 M/mm3 (4.6-6.2); White Blood Count 4.7 K/mm3 (4.4-11.0)
[2022-04-30 12:23] LABS: AST(SGOT) 22 U/L (15-37); Alanine Aminotransfer ALT/SGPT 38 U/L (16-61); Albumin, Serum 3.7 g/dL (3.2-5.0); Alkaline Phosphatase 98 U/L (45-117); Anion Gap 8 (5-15); BUN 12 mg/dL (7-18); BUN/Creat Ratio 12.4 RATIO (10-20); Calcium,Total 9.4 mg/dL (8.5-10.1); Chloride 104 mmol/L (98-107); Creatinine, Serum 0.97 mg/dL (0.70-1.30); EST Glomerular Filtration Rate 85 mL/min (>60); Est Glom Filt Rate - Afr Amer 103 mL/min (>60); Globulin 3.6 g/dL (2.2-4.2); Glucose 130 mg/dL (74-106); Potassium 3.8 mmol/L (3.5-5.1); Protein, Total 7.3 g/dL (6.4-8.2); Sodium Level 141 mmol/L (136-145)
== END | disposition home or self-care (01) ==
LOC: MTLAB 10:48
PROVIDERS: PCP Nurse Practitioner Family; Referring Provider Internal Medicine Rheumatology; Visit Provider Internal Medicine Rheumatology
DX: I10 Essential (primary) hypertension (principal); E11.9 Type 2 diabetes mellitus without complications; D86.86 Sarcoid arthropathy; K21.9 Gastro-esophageal reflux disease without esophagitis; R51.9 Headache, unspecified; N20.0 Calculus of kidney; Z86.011 Personal history of benign neoplasm of the brain; Z79.899 Other long term (current) drug therapy
CPT/HCPCS: 36415; 80053; 85025

== ENCOUNTER → 2022-07-13 | Outpatient (CLI) | payer OTHER, SELFPAY ==
[2022-07-13 12:21] LABS: Absolute Lymphocyte Count 0.87 X10^3/uL (0.83-4.51); Absolute Neutrophil Count 3.2 X10^3/uL (2.0-7.7); Basophil# 0.04 X10^3/uL; Basophil% 0.8 % (0-1); Eosinophil# 0.21 X10^3/uL; Eosinophils% 4.1 % (0-5); Hematocrit 44.4 % (40-54); Hemoglobin 15.5 g/dL (13.0-16.5); Lymphocyte # 0.87 X10^3/ul (0.83-4.51); Lymphocyte % 17.1 % (19-41); Mean Corp Hgb Conc 34.9 g/dL (32-36); Mean Corpuscular Hgb 32.3 pg (27.0-32.0); Mean Corpuscular Volume 92.5 fL (80-94); Mean Platelet Vol. 10.2 fl (6.2-12.0); Monocyte# 0.72 X10^3/uL; Monocyte% 14.1 % (0-10); NRBC Flagged by Analyzer 0 % (0-5); Neutrophil # 3.15 X10^3/uL (2.7-7.7); Neutrophil % 61.7 % (47-70); Platelet Count 210 K/mm3 (150-450); RBC Distribution Width CV 12.6 % (11.6-14.6); RBC Distribution Width SD 42.8 fl (35.1-43.9); White Blood Count 5.1 K/mm3 (4.4-11.0)
[2022-07-13 12:43] LABS: AST(SGOT) 11 U/L (15-37); Alanine Aminotransfer ALT/SGPT 26 U/L (16-61); Albumin, Serum 3.6 g/dL (3.2-5.0); Alkaline Phosphatase 144 U/L (45-117); Anion Gap 8 (5-15); BUN 11 mg/dL (7-18); BUN/Creat Ratio 12.6 RATIO (10-20); Calcium,Total 9.5 mg/dL (8.5-10.1); Chloride 103 mmol/L (98-107); Creatinine, Serum 0.87 mg/dL (0.70-1.30); EST Glomerular Filtration Rate 97 mL/min (>60); Est Glom Filt Rate - Afr Amer 117 mL/min (>60); Globulin 3.7 g/dL (2.2-4.2); Glucose 138 mg/dL (74-106); Protein, Total 7.3 g/dL (6.4-8.2); Sodium Level 140 mmol/L (136-145)
== END | disposition home or self-care (01) ==
PROVIDERS: PCP Nurse Practitioner Family; Referring Provider Internal Medicine Rheumatology; Visit Provider Internal Medicine Rheumatology
DX: D86.86 Sarcoid arthropathy (principal); E11.9 Type 2 diabetes mellitus without complications; Z79.899 Other long term (current) drug therapy; M65.311 Trigger thumb, right thumb; K21.9 Gastro-esophageal reflux disease without esophagitis; I10 Essential (primary) hypertension; R51.9 Headache, unspecified; N20.0 Calculus of kidney; H93.13 Tinnitus, bilateral; Z86.011 Personal history of benign neoplasm of the brain; G47.33 Obstructive sleep apnea (adult) (pediatric)
CPT/HCPCS: 36415; 80053; 85025

== ENCOUNTER 2022-08-05 08:51 | Outpatient (RCR) | payer OTHER, SELFPAY | END 2022-08-22 23:59 | LOC: DC 08:51 | PROVIDERS: PCP Nurse Practitioner Family; Visit Provider Nurse Practitioner Family | DX: E11.9 Type 2 diabetes mellitus without complications (principal) | CPT/HCPCS: 97802 ==

== ENCOUNTER 2022-09-07 09:00 | Outpatient (RCR) | payer OTHER, SELFPAY | END 2022-09-22 23:59 | LOC: DC 09:00 | PROVIDERS: PCP Nurse Practitioner Family; Visit Provider Nurse Practitioner Family | DX: E11.9 Type 2 diabetes mellitus without complications (principal) | CPT/HCPCS: 97803 ==

== ENCOUNTER 2022-10-22 09:57 | Outpatient (RCR) | payer OTHER, SELFPAY | END 2022-11-20 23:59 | LOC: DC 09:57 | PROVIDERS: PCP Nurse Practitioner Family; Visit Provider Nurse Practitioner Family | DX: E11.9 Type 2 diabetes mellitus without complications (principal) | CPT/HCPCS: 97803 ==

== ENCOUNTER → 2022-11-04 | Outpatient (CLI) | payer OTHER, SELFPAY ==
--- NOTE | 2022-11-05 10:17 | PFTCOMP ---
COMPLETE PULMONARY FUNCTION TEST INTERPRETATION Brief HPI: Patient is a 57-year-old male, currently under the care of myself, who presents to [facility] for complete pulmonary function tests secondary to diagnosis of sarcoidosis. Respiratory therapist reports good effort and reproducible results. Interpretation: Forced expiration spirometry shows no large airways obstructive ventilatory defect with an FEV1 of 74% predicted. There is no significant bronchodilator response by strict ATS criteria. Spirograms are of good quality and plateau normally. The respiratory flow volume loop shows a normal pattern. Lung volumes by body plethysmography show a decreased total lung capacity at 4.49 L, 78% predicted. All other lung volumes are reduced symmetrically. Diffusion capacity by carbon monoxide is normal at 85% predicted. The airway resistance is normal. Compared to previous pulmonary function tests from 11/17/2021, there is been a significant reduction in lung volumes by 16%. Impression: Mild restrictive ventilatory defect with relatively preserved diffusion capacity
== END | disposition home or self-care (01) ==
LOC: PSN 10:31
PROVIDERS: PCP Nurse Practitioner Family; Referring Provider Internal Medicine Critical Care Medicine; Visit Provider Internal Medicine Critical Care Medicine
DX: D86.0 Sarcoidosis of lung (principal)
CPT/HCPCS: 94060; 94726; 94729

== ENCOUNTER → 2022-11-06 | Outpatient (CLI) | payer OTHER, SELFPAY ==
[2022-11-06 12:22] LABS: Absolute Neutrophil Count 2.6 X10^3/uL (2.0-7.7); Basophil# 0.04 X10^3/uL; Eosinophil# 0.16 X10^3/uL; Hematocrit 48.4 % (40-54); Hemoglobin 16.3 g/dL (13.0-16.5); Mean Corp Hgb Conc 33.7 g/dL (32-36); Mean Corpuscular Hgb 31.5 pg (27.0-32.0); Mean Corpuscular Volume 93.4 fL (80-94); Mean Platelet Vol. 10.2 fl (6.2-12.0); Monocyte# 0.61 X10^3/uL; Monocyte% 15.3 % (0-10); NRBC Flagged by Analyzer 0 % (0-5); Neutrophil # 2.57 X10^3/uL (2.7-7.7); Neutrophil % 64.2 % (47-70); POSITIVE DIFFERENTIAL YES; Platelet Count 160 K/mm3 (150-450); RBC Distribution Width CV 12.8 % (11.6-14.6); RBC Distribution Width SD 44.3 fl (35.1-43.9); Red Blood Count 5.18 M/mm3 (4.6-6.2)
[2022-11-06 12:23] LABS: Differential Indicated SCAN CRITERIA MET
[2022-11-06 12:57] LABS: ALB/GLOB Ratio 1.1 RATIO (0.9-2.4); AST(SGOT) 23 U/L (15-37); Alanine Aminotransfer ALT/SGPT 30 U/L (16-61); Albumin, Serum 3.8 g/dL (3.2-5.0); Alkaline Phosphatase 107 U/L (45-117); Anion Gap 9 (5-15); BUN 13 mg/dL (7-18); BUN/Creat Ratio 15.6 RATIO (10-20); Calcium,Total 9.8 mg/dL (8.5-10.1); Chloride 102 mmol/L (98-107); Creatinine, Serum 0.84 mg/dL (0.70-1.30); EST Glomerular Filtration Rate 101 mL/min (>60); Est Glom Filt Rate - Afr Amer 123 mL/min (>60); Globulin 3.6 g/dL (2.2-4.2); Glucose 122 mg/dL (74-106); Potassium 3.8 mmol/L (3.5-5.1); Protein, Total 7.4 g/dL (6.4-8.2); Sodium Level 138 mmol/L (136-145)
[2022-11-10 08:46] LABS: Pathologist Review Reviewed
== END | disposition home or self-care (01) ==
LOC: MTLAB 11:07
PROVIDERS: PCP Nurse Practitioner Family; Referring Provider Internal Medicine Rheumatology; Visit Provider Internal Medicine Rheumatology
DX: D86.86 Sarcoid arthropathy (principal); Z79.899 Other long term (current) drug therapy
CPT/HCPCS: 36415; 80053; 85025

== ENCOUNTER → 2022-12-14 | Outpatient (CLI) | payer OTHER, SELFPAY ==
--- NOTE | 2022-12-14 06:44 | CT_ITS ---
EXAM: CT CHEST WITHOUT INTRAVENOUS CONTRAST CLINICAL INDICATION: sarcoidosis TECHNIQUE: Helically acquired images were obtained of the chest without intravenous contrast. This CT exam was performed using one or more of the following dose reduction techniques: automated exposure control, adjustment of the mA and/or kV according to patient size, and/or use of iterative reconstruction technique. This report was created using [employer] report generation technology. RADIATION DOSE: CTDIvol = 13.52 mGy, DLP = 462.82 mGy-cmContrast: COMPARISON: June 09, 2021. FINDINGS: LUNGS AND PLEURAL SPACES: Significantly larger thick band of opacity extending from left hilum to the left lateral pleura, there was only mild discontinuous density and juxtapleural opacity and some interstitial thickening and nodularity in this region on the prior exam. Increased interstitial thickening and nodularity in the central lungs. Persistent mildly increased dense patchy opacity with some air bronchograms in the right middle lobe and increased moderate irregular thickening in the right lower lobe abutting the major fissure. Also increased moderate irregular juxtapleural opacities in the lung bases and adjacent to the hemidiaphragms. Extensive nodularity in the parenchyma appears largely stable from prior exam, with nodules of a few millimeters to at least 8 mm x 9 mm in the right lung and a few millimeters to estimated 1 cm x 1.1 cm in the left lung. No central airway obstruction. HEART: Mild calcifications in left coronary artery branches. Normal heart size. No pericardial effusion. MEDIASTINUM: Fairly stable moderate mediastinal adenopathy including 1.6 cm short axis right paratracheal node just superior to the level of the maureen, it was 2.2 cm short axis, multiple additional mediastinal nodes bilaterally, bulky left and mild right hilar nodes, there were better seen on the prior exam with contrast. Esophagus is unremarkable. No hiatal hernia. THYROID: Unremarkable. No thyroid lesions. BONES/JOINTS: Old fractures of multiple right posterior ribs but they are new since June 09, 2021. No suspicious lytic or blastic abnormality. No other suspicious bone lesion. VASCULATURE: Normal aortic caliber. GALLBLADDER AND BILE DUCTS: Unremarkable partially included upper abdomen, the region of the gallbladder and most of the pancreas is not included. CT/Chest without Contrast IMPRESSION: 1. Similar mediastinal and hilar adenopathy as measured on suboptimal unenhanced exam. 2. Multifocal increased parenchymal interstitial thickening and nodularity. 3. Too numerous to count nodules. Most of which are stable. 4. Thicker bands of possibly progressive fibrosis in the central lungs, with thick band of soft tissue extending from the left hilum to the pleura and mildly increased patchy multifocal opacities in the right juxtapleural lung. 5. Cannot completely exclude underlying neoplasm, complex exam with multifocal progression of lung disease. An infiltrative neoplasm such as superimposed lymphoma cannot be excluded. 6. Multiple subacute-chronic right posterior rib fractures, new since 2020. Electronically Signed: Mary Grace Greenfield MD at 7:31 EDT ,
== END | disposition home or self-care (01) ==
LOC: CT 06:44
PROVIDERS: PCP Nurse Practitioner Family; Referring Provider Nurse Practitioner Acute Care; Visit Provider Nurse Practitioner Acute Care
DX: R91.8 Other nonspecific abnormal finding of lung field (principal); D86.9 Sarcoidosis, unspecified
CPT/HCPCS: 71250

== ENCOUNTER 2022-12-21 09:46 | Outpatient (RCR) | payer OTHER, SELFPAY | END 2023-01-20 23:59 | LOC: DC 09:46 | PROVIDERS: PCP Nurse Practitioner Family; Referring Provider Nurse Practitioner Family; Visit Provider Nurse Practitioner Family | DX: E11.9 Type 2 diabetes mellitus without complications (principal) | CPT/HCPCS: 97803 ==

== ENCOUNTER → 2023-01-25 | Outpatient (CLI) | payer OTHER, SELFPAY ==
[2023-01-25 15:16] LABS: Absolute Lymphocyte Count 0.63 X10^3/uL (0.83-4.51); Absolute Neutrophil Count 3.1 X10^3/uL (2.0-7.7); Basophil# 0.05 X10^3/uL; Eosinophils% 4.1 % (0-5); Hematocrit 46.2 % (40-54); Hemoglobin 15.8 g/dL (13.0-16.5); Lymphocyte # 0.63 X10^3/ul (0.83-4.51); Lymphocyte % 13.1 % (19-41); Mean Corp Hgb Conc 34.2 g/dL (32-36); Mean Corpuscular Hgb 32.5 pg (27.0-32.0); Mean Corpuscular Volume 95.1 fL (80-94); Mean Platelet Vol. 11.2 fl (6.2-12.0); Monocyte# 0.75 X10^3/uL; Monocyte% 15.6 % (0-10); NRBC Flagged by Analyzer 0 % (0-5); Neutrophil % 64.3 % (47-70); Platelet Count 142 K/mm3 (150-450); RBC Distribution Width CV 13.5 % (11.6-14.6); RBC Distribution Width SD 47.1 fl (35.1-43.9); Red Blood Count 4.86 M/mm3 (4.6-6.2); White Blood Count 4.8 K/mm3 (4.4-11.0)
[2023-01-25 15:51] LABS: AST(SGOT) 16 U/L (15-37); Alanine Aminotransfer ALT/SGPT 25 U/L (16-61); Albumin, Serum 3.4 g/dL (3.2-5.0); Alkaline Phosphatase 124 U/L (45-117); Anion Gap 2 (5-15); BUN 13 mg/dL (7-18); BUN/Creat Ratio 14.6 RATIO (10-20); Calcium,Total 8.6 mg/dL (8.5-10.1); Chloride 107 mmol/L (98-107); Creatinine, Serum 0.89 mg/dL (0.70-1.30); EST Glomerular Filtration Rate 94 mL/min (>60); Est Glom Filt Rate - Afr Amer 114 mL/min (>60); Globulin 3.4 g/dL (2.2-4.2); Glucose 157 mg/dL (74-106); Potassium 3.4 mmol/L (3.5-5.1); Protein, Total 6.8 g/dL (6.4-8.2); Sodium Level 136 mmol/L (136-145)
== END | disposition home or self-care (01) ==
LOC: MTLAB 11:33
PROVIDERS: PCP Nurse Practitioner Family; Referring Provider Internal Medicine Rheumatology; Visit Provider Internal Medicine Rheumatology
DX: D86.86 Sarcoid arthropathy (principal); Z79.899 Other long term (current) drug therapy
CPT/HCPCS: 36415; 80053; 85025

== ENCOUNTER 2023-02-22 09:49 | Outpatient (RCR) | payer OTHER, SELFPAY | END 2023-03-22 23:59 | LOC: DC 09:49 | PROVIDERS: PCP Nurse Practitioner Family; Referring Provider Nurse Practitioner Family; Visit Provider Nurse Practitioner Family | DX: E11.9 Type 2 diabetes mellitus without complications (principal) | CPT/HCPCS: 97803 ==

== ENCOUNTER → 2023-04-27 | Outpatient (CLI) | payer OTHER, SELFPAY ==
[2023-04-27 12:25] LABS: Absolute Lymphocyte Count 0.47 X10^3/uL (0.83-4.51); Absolute Neutrophil Count 3.3 X10^3/uL (2.0-7.7); Basophil# 0.03 X10^3/uL; Basophil% 0.7 % (0-1); Eosinophil# 0.14 X10^3/uL; Hemoglobin 15.1 g/dL (13.0-16.5); Lymphocyte # 0.47 X10^3/ul (0.83-4.51); Lymphocyte % 10.2 % (19-41); Mean Corp Hgb Conc 33.6 g/dL (32-36); Mean Corpuscular Hgb 32.3 pg (27.0-32.0); Mean Corpuscular Volume 96.2 fL (80-94); Monocyte# 0.56 X10^3/uL; Monocyte% 12.2 % (0-10); NRBC Flagged by Analyzer 0 % (0-5); Neutrophil # 3.31 X10^3/uL (2.7-7.7); Neutrophil % 71.9 % (47-70); POSITIVE DIFFERENTIAL YES; Platelet Count 189 K/mm3 (150-450); RBC Distribution Width CV 12.6 % (11.6-14.6); RBC Distribution Width SD 43.8 fl (35.1-43.9); Red Blood Count 4.68 M/mm3 (4.6-6.2); White Blood Count 4.6 K/mm3 (4.4-11.0)
[2023-04-27 12:28] LABS: Differential Indicated SCAN CRITERIA MET
[2023-04-27 12:40] LABS: ALB/GLOB Ratio 0.9 RATIO (0.9-2.4); AST(SGOT) 11 U/L (15-37); Alanine Aminotransfer ALT/SGPT 21 U/L (16-61); Albumin, Serum 3.4 g/dL (3.2-5.0); Alkaline Phosphatase 97 U/L (45-117); Anion Gap 6 (5-15); BUN 22 mg/dL (7-18); BUN/Creat Ratio 29.3 RATIO (10-20); Calcium,Total 8.7 mg/dL (8.5-10.1); Chloride 107 mmol/L (98-107); Creatinine, Serum 0.75 mg/dL (0.70-1.30); EST Glomerular Filtration Rate 115 mL/min (>60); Est Glom Filt Rate - Afr Amer 139 mL/min (>60); Globulin 3.6 g/dL (2.2-4.2); Glucose 146 mg/dL (74-106); Potassium 3.8 mmol/L (3.5-5.1); Sodium Level 139 mmol/L (136-145)
== END | disposition home or self-care (01) ==
LOC: MTLAB 11:03
PROVIDERS: PCP Nurse Practitioner Family; Referring Provider Internal Medicine Rheumatology; Visit Provider Internal Medicine Rheumatology
DX: D86.86 Sarcoid arthropathy (principal); Z79.899 Other long term (current) drug therapy
CPT/HCPCS: 36415; 80053; 85025

== ENCOUNTER 2023-05-03 09:55 | Outpatient (RCR) | payer OTHER, SELFPAY | END 2023-05-22 23:59 | LOC: DC 09:55 | PROVIDERS: PCP Nurse Practitioner Family; Referring Provider Nurse Practitioner Family; Visit Provider Nurse Practitioner Family | DX: E11.9 Type 2 diabetes mellitus without complications (principal) | CPT/HCPCS: 97803 ==

== ENCOUNTER → 2023-06-25 | Outpatient (CLI) | payer OTHER, SELFPAY ==
[2023-06-25 13:27] LABS: Absolute Lymphocyte Count 0.64 X10^3/uL (0.83-4.51); Absolute Neutrophil Count 2.9 X10^3/uL (2.0-7.7); Basophil# 0.04 X10^3/uL; Basophil% 0.9 % (0-1); Eosinophil# 0.28 X10^3/uL; Hematocrit 44.5 % (40-54); Hemoglobin 15.3 g/dL (13.0-16.5); Lymphocyte # 0.64 X10^3/ul (0.83-4.51); Lymphocyte % 13.7 % (19-41); Mean Corp Hgb Conc 34.4 g/dL (32-36); Mean Corpuscular Hgb 32.5 pg (27.0-32.0); Mean Corpuscular Volume 94.5 fL (80-94); Mean Platelet Vol. 10.6 fl (6.2-12.0); Monocyte# 0.71 X10^3/uL; Monocyte% 15.2 % (0-10); NRBC Flagged by Analyzer 0 % (0-5); Neutrophil # 2.94 X10^3/uL (2.7-7.7); Neutrophil % 62.9 % (47-70); Platelet Count 201 K/mm3 (150-450); RBC Distribution Width CV 12.9 % (11.6-14.6); RBC Distribution Width SD 43.8 fl (35.1-43.9); Red Blood Count 4.71 M/mm3 (4.6-6.2); White Blood Count 4.7 K/mm3 (4.4-11.0)
[2023-06-25 13:44] LABS: AST(SGOT) 16 U/L (15-37); Alanine Aminotransfer ALT/SGPT 30 U/L (16-61); Albumin, Serum 3.6 g/dL (3.2-5.0); Alkaline Phosphatase 103 U/L (45-117); Anion Gap 4 (5-15); BUN 19 mg/dL (7-18); Calcium,Total 9.4 mg/dL (8.5-10.1); Chloride 104 mmol/L (98-107); EST Glomerular Filtration Rate 92 mL/min (>60); Est Glom Filt Rate - Afr Amer 112 mL/min (>60); Globulin 3.6 g/dL (2.2-4.2); Glucose 146 mg/dL (74-106); Potassium 3.9 mmol/L (3.5-5.1); Protein, Total 7.2 g/dL (6.4-8.2); Sodium Level 137 mmol/L (136-145)
== END | disposition home or self-care (01) ==
LOC: MTLAB 10:39
PROVIDERS: PCP Nurse Practitioner Family; Referring Provider Internal Medicine Rheumatology; Visit Provider Internal Medicine Rheumatology
DX: D86.86 Sarcoid arthropathy (principal); Z79.899 Other long term (current) drug therapy
CPT/HCPCS: 36415; 80053; 85025

== ENCOUNTER 2023-08-02 09:55 | Outpatient (RCR) | payer OTHER, SELFPAY | END 2023-08-22 23:59 | LOC: DC 09:55 | PROVIDERS: PCP Nurse Practitioner Family; Referring Provider Nurse Practitioner Family; Visit Provider Nurse Practitioner Family | DX: E11.9 Type 2 diabetes mellitus without complications (principal) | CPT/HCPCS: 97803 ==

== ENCOUNTER → 2023-09-13 | Outpatient (CLI) | payer OTHER, SELFPAY ==
[2023-09-13 10:18] LABS: Absolute Lymphocyte Count 0.53 X10^3/uL (0.83-4.51); Basophil# 0.02 X10^3/uL; Basophil% 0.6 % (0-1); Eosinophil# 0.19 X10^3/uL; Eosinophils% 5.6 % (0-5); Hematocrit 43.2 % (40-54); Hemoglobin 14.7 g/dL (13.0-16.5); Lymphocyte # 0.53 X10^3/ul (0.83-4.51); Lymphocyte % 15.5 % (19-41); Mean Corpuscular Hgb 32.6 pg (27.0-32.0); Mean Corpuscular Volume 95.8 fL (80-94); Mean Platelet Vol. 9.9 fl (6.2-12.0); Monocyte# 0.65 X10^3/uL; Monocyte% 19.1 % (0-10); NRBC Flagged by Analyzer 0 % (0-5); Neutrophil # 1.98 X10^3/uL (2.7-7.7); POSITIVE DIFFERENTIAL YES; Platelet Count 176 K/mm3 (150-450); RBC Distribution Width CV 13.2 % (11.6-14.6); RBC Distribution Width SD 46.1 fl (35.1-43.9); Red Blood Count 4.51 M/mm3 (4.6-6.2); White Blood Count 3.4 K/mm3 (4.4-11.0)
[2023-09-13 10:21] LABS: Differential Indicated SCAN CRITERIA MET
[2023-09-13 10:47] LABS: Reactive Lymphocyte 1+
[2023-09-13 10:49] LABS: AST(SGOT) 12 U/L (15-37); Alanine Aminotransfer ALT/SGPT 21 U/L (16-61); Albumin, Serum 3.6 g/dL (3.2-5.0); Alkaline Phosphatase 86 U/L (45-117); Anion Gap 2 (5-15); BUN 12 mg/dL (7-18); BUN/Creat Ratio 12.9 RATIO (10-20); Calcium,Total 8.8 mg/dL (8.5-10.1); Chloride 107 mmol/L (98-107); Creatinine, Serum 0.93 mg/dL (0.70-1.30); EST Glomerular Filtration Rate 89 mL/min (>60); Est Glom Filt Rate - Afr Amer 108 mL/min (>60); Globulin 3.7 g/dL (2.2-4.2); Glucose 145 mg/dL (74-106); Potassium 3.9 mmol/L (3.5-5.1); Protein, Total 7.3 g/dL (6.4-8.2); Sodium Level 139 mmol/L (136-145)
[2023-09-14 10:12] LABS: Pathologist Review Reviewed
== END | disposition home or self-care (01) ==
PROVIDERS: PCP Nurse Practitioner Family; Referring Provider Internal Medicine Rheumatology; Visit Provider Internal Medicine Rheumatology
DX: D86.86 Sarcoid arthropathy (principal); M65.311 Trigger thumb, right thumb; Z79.899 Other long term (current) drug therapy
CPT/HCPCS: 36415; 80053; 85025

== ENCOUNTER → 2023-09-20 | Outpatient (CLI) | payer OTHER, SELFPAY ==
--- NOTE | 2023-09-21 05:51 | PFTCOMP ---
COMPLETE PULMONARY FUNCTION TEST INTERPRETATION Brief HPI: Patient is a 58-year-old male, currently under the care of Jazzy Rey, who presents to [facility] for complete pulmonary function tests secondary to diagnosis of dyspnea. Respiratory therapist reports good effort and reproducible results. Interpretation: Forced expiration spirometry shows no large airways obstructive ventilatory defect with an FEV1 of 63% predicted. There is no significant bronchodilator response by strict ATS criteria. Spirograms are of good quality and plateau normally. The respiratory flow volume loop shows a normal pattern. Lung volumes by body plethysmography show a mildly decreased total lung capacity at 5.13 L, 79% predicted. All other lung volumes are within normal limits. Diffusion capacity by carbon monoxide is at the lower limit of normal at 76% predicted. The airway resistance is elevated. Compared to previous pulmonary function tests from 11/04/2022, there has been no significant change. Impression: Mild restrictive ventilatory defect with a symmetric reduction diffusion capacity
== END | disposition home or self-care (01) ==
LOC: PSN 08:02
PROVIDERS: PCP Nurse Practitioner Family; Referring Provider Nurse Practitioner Acute Care; Visit Provider Nurse Practitioner Acute Care
DX: R06.09 Other forms of dyspnea (principal)
CPT/HCPCS: 94060; 94726; 94729

== ENCOUNTER → 2023-12-06 | Outpatient (CLI) | payer OTHER, SELFPAY ==
[2023-12-06 12:40] LABS: Absolute Lymphocyte Count 0.48 X10^3/uL (0.83-4.51); Absolute Neutrophil Count 2.7 X10^3/uL (2.0-7.7); Basophil# 0.03 X10^3/uL; Basophil% 0.7 % (0-1); Eosinophil# 0.19 X10^3/uL; Eosinophils% 4.6 % (0-5); Hemoglobin 14.5 g/dL (13.0-16.5); Lymphocyte # 0.48 X10^3/ul (0.83-4.51); Lymphocyte % 11.7 % (19-41); Mean Corp Hgb Conc 34.5 g/dL (32-36); Mean Corpuscular Hgb 32.5 pg (27.0-32.0); Mean Corpuscular Volume 94.2 fL (80-94); Mean Platelet Vol. 10.7 fl (6.2-12.0); NRBC Flagged by Analyzer 0 % (0-5); Neutrophil # 2.66 X10^3/uL (2.7-7.7); Neutrophil % 64.8 % (47-70); POSITIVE DIFFERENTIAL YES; Platelet Count 153 K/mm3 (150-450); RBC Distribution Width SD 44.5 fl (35.1-43.9); Red Blood Count 4.46 M/mm3 (4.6-6.2); White Blood Count 4.1 K/mm3 (4.4-11.0)
[2023-12-06 13:28] LABS: AST(SGOT) 15 U/L (15-37); Alanine Aminotransfer ALT/SGPT 25 U/L (16-61); Albumin, Serum 3.4 g/dL (3.2-5.0); Alkaline Phosphatase 99 U/L (45-117); Anion Gap 5 (5-15); BUN 17 mg/dL (7-18); BUN/Creat Ratio 19.4 RATIO (10-20); Bilirubin, Direct 0.19 mg/dL (0.00-0.30); Calcium,Total 8.9 mg/dL (8.5-10.1); Chloride 106 mmol/L (98-107); Creatinine, Serum 0.88 mg/dL (0.70-1.30); EST Glomerular Filtration Rate 96 mL/min (>60); Est Glom Filt Rate - Afr Amer 116 mL/min (>60); Globulin 3.3 g/dL (2.2-4.2); Glucose 147 mg/dL (74-106); Potassium 3.5 mmol/L (3.5-5.1); Protein, Total 6.7 g/dL (6.4-8.2); Sodium Level 138 mmol/L (136-145)
== END | disposition home or self-care (01) ==
LOC: MTLAB 09:57
PROVIDERS: Nurse Practitioner Acute Care; PCP Nurse Practitioner Family; Referring Provider Internal Medicine Rheumatology; Visit Provider Internal Medicine Rheumatology
DX: D86.86 Sarcoid arthropathy (principal); Z79.899 Other long term (current) drug therapy; M65.311 Trigger thumb, right thumb
CPT/HCPCS: 36415; 80053; 82248; 85025

== ENCOUNTER → 2024-03-06 | Outpatient (CLI) | payer OTHER, SELFPAY ==
[2024-03-06 12:08] LABS: Absolute Lymphocyte Count 0.46 X10^3/uL (0.83-4.51); Absolute Neutrophil Count 3.5 X10^3/uL (2.0-7.7); Basophil# 0.05 X10^3/uL; Eosinophil# 0.18 X10^3/uL; Eosinophils% 3.6 % (0-5); Hematocrit 45.4 % (40-54); Hemoglobin 15.3 g/dL (13.0-16.5); Lymphocyte # 0.46 X10^3/ul (0.83-4.51); Lymphocyte % 9.2 % (19-41); Mean Corp Hgb Conc 33.7 g/dL (32-36); Mean Corpuscular Hgb 32.4 pg (27.0-32.0); Mean Corpuscular Volume 96.2 fL (80-94); Mean Platelet Vol. 11.3 fl (6.2-12.0); Monocyte# 0.79 X10^3/uL; Monocyte% 15.9 % (0-10); NRBC Flagged by Analyzer 0 % (0-5); Neutrophil # 3.46 X10^3/uL (2.7-7.7); Neutrophil % 69.5 % (47-70); POSITIVE DIFFERENTIAL YES; Platelet Count 156 K/mm3 (150-450); RBC Distribution Width CV 13.5 % (11.6-14.6); RBC Distribution Width SD 47.5 fl (35.1-43.9); Red Blood Count 4.72 M/mm3 (4.6-6.2)
[2024-03-06 13:18] LABS: AST(SGOT) 17 U/L (15-37); Alanine Aminotransfer ALT/SGPT 24 U/L (16-61); Albumin, Serum 3.6 g/dL (3.2-5.0); Alkaline Phosphatase 110 U/L (45-117); Anion Gap 10 (5-15); BUN 20 mg/dL (7-18); BUN/Creat Ratio 23.3 RATIO (10-20); Calcium,Total 9.6 mg/dL (8.5-10.1); Chloride 106 mmol/L (98-107); Creatinine, Serum 0.86 mg/dL (0.70-1.30); EST Glomerular Filtration Rate 98 mL/min (>60); Est Glom Filt Rate - Afr Amer 118 mL/min (>60); Globulin 3.7 g/dL (2.2-4.2); Glucose 148 mg/dL (74-106); Potassium 3.8 mmol/L (3.5-5.1); Protein, Total 7.3 g/dL (6.4-8.2); Sodium Level 138 mmol/L (136-145)
== END | disposition home or self-care (01) ==
PROVIDERS: PCP Nurse Practitioner Family; Referring Provider Internal Medicine Rheumatology; Visit Provider Internal Medicine Rheumatology
DX: D86.86 Sarcoid arthropathy (principal); Z79.899 Other long term (current) drug therapy; M65.311 Trigger thumb, right thumb
CPT/HCPCS: 36415; 80053; 85025

== ENCOUNTER → 2024-05-09 | Outpatient (CLI) | payer OTHER, SELFPAY ==
--- NOTE | 2024-05-09 11:06 | MRI_ITS ---
EXAM: MR HEAD WITHOUT AND WITH INTRAVENOUS CONTRAST CLINICAL INDICATION: Meningioma. Follow-up. History of meningioma surgery. TECHNIQUE: Multiplanar and multisequence MR images of the brain were obtained without and with intravenous contrast. CONTRAST: 15ML IV CLARISCAN COMPARISON: MRI brain with and without contrast 08/18/2018. FINDINGS: BRAIN AND EXTRA-AXIAL SPACES: Complete resolution of the postoperative dural enhancement and thickening overlying the right frontal lobe. No abnormal enhancing lesions intra-axially and extra-axially. Enhancing intramedullary vein underneath the right superior frontal gyrus is small focal developmental venous anomaly. This was also present previously. No focal signal abnormalities throughout the brain parenchyma. Normal ventricles and cisterns. No intra- or extra-axial hemorrhage. No evidence of acute infarct. No intracranial mass or mass effect. There is preservation of the duncan/white matter interface. Posterior fossa structures are unremarkable. Ventricles are appropriate for age. No hydrocephalus. Basal cisterns are patent. SELLA: Unremarkable. Normal sella turcica, pituitary gland, infundibular stalk, optic chiasm and hypothalamus. AUDITORY SYSTEM: Unremarkable. The internal auditory canals are patent. BONES/JOINTS: Decreased soft tissue swelling of the scalp overlying the right frontal craniotomy. SINUSES: Unremarkable as visualized. Clear. MASTOID AIR CELLS: Unremarkable as visualized. Clear. ORBITS: Unremarkable as visualized. Both globes, extraocular muscles, optic nerves and retrobulbar fat appear unremarkable. VASCULATURE: Unremarkable as visualized. Normal flow voids in the major intracranial circulation. MRI/Brain W/WO Contrast IMPRESSION: 1. Complete resolution of the postoperative dural thickening and contrast enhancement underneath the right frontal craniotomy and overlying the right frontal lobe. This corresponds to the site of previous meningioma resection. 2. No MRI evidence of recurrent or residual meningioma overlying the right frontal lobe. 3. Incidental small enhancing intramedullary vein underneath the right superior frontal gyrus. This drains into the superficial cortical vein and ultimately drain into the superior sagittal sinus. This is focal developmental venous anomaly (DVA). Electronically Signed: Ed Harris MD at 13:55 EDT ,
[2024-05-09 11:40] LABS: CREATININE FINGERSTICK 1.1 mg/dL (0.70-1.30); EGFR FINGERSTICK > 60.0000 mL/min (>60)
== END | disposition home or self-care (01) ==
LOC: MRI 11:01
PROVIDERS: PCP Nurse Practitioner Family; Referring Provider Psychiatry & Neurology Neurology; Visit Provider Psychiatry & Neurology Neurology
DX: D32.0 Benign neoplasm of cerebral meninges (principal)
CPT/HCPCS: 70553; A9575

== ENCOUNTER → 2024-05-26 | Outpatient (CLI) | payer OTHER, SELFPAY ==
[2024-05-26 15:21] LABS: Absolute Lymphocyte Count 0.53 X10^3/uL (0.83-4.51); Absolute Neutrophil Count 2.1 X10^3/uL (2.0-7.7); Basophil# 0.05 X10^3/uL; Basophil% 1.4 % (0-1); Eosinophil# 0.22 X10^3/uL; Eosinophils% 6.1 % (0-5); Hematocrit 45.2 % (40-54); Hemoglobin 15.1 g/dL (13.0-16.5); Lymphocyte # 0.53 X10^3/ul (0.83-4.51); Lymphocyte % 14.8 % (19-41); Mean Corp Hgb Conc 33.4 g/dL (32-36); Mean Corpuscular Hgb 32.3 pg (27.0-32.0); Mean Corpuscular Volume 96.8 fL (80-94); Mean Platelet Vol. 10.8 fl (6.2-12.0); Monocyte# 0.63 X10^3/uL; Monocyte% 17.5 % (0-10); NRBC Flagged by Analyzer 0 % (0-5); Neutrophil # 2.12 X10^3/uL (2.7-7.7); Neutrophil % 59.1 % (47-70); POSITIVE DIFFERENTIAL YES; Platelet Count 169 K/mm3 (150-450); RBC Distribution Width CV 12.7 % (11.6-14.6); RBC Distribution Width SD 44.4 fl (35.1-43.9); Red Blood Count 4.67 M/mm3 (4.6-6.2); White Blood Count 3.6 K/mm3 (4.4-11.0)
[2024-05-26 15:45] LABS: ALB/GLOB Ratio 1.1 RATIO (0.9-2.4); AST(SGOT) 11 U/L (15-37); Alanine Aminotransfer ALT/SGPT 25 U/L (16-61); Albumin, Serum 3.8 g/dL (3.2-5.0); Alkaline Phosphatase 101 U/L (45-117); Anion Gap 5 (5-15); BUN 14 mg/dL (7-18); BUN/Creat Ratio 13.9 RATIO (10-20); Calcium,Total 9.7 mg/dL (8.5-10.1); Chloride 104 mmol/L (98-107); Creatinine, Serum 1.01 mg/dL (0.70-1.30); EST Glomerular Filtration Rate 81 mL/min (>60); Est Glom Filt Rate - Afr Amer 98 mL/min (>60); Globulin 3.4 g/dL (2.2-4.2); Glucose 164 mg/dL (74-106); Potassium 3.6 mmol/L (3.5-5.1); Protein, Total 7.2 g/dL (6.4-8.2); Sodium Level 138 mmol/L (136-145)
== END | disposition home or self-care (01) ==
LOC: MTLAB 11:12
PROVIDERS: PCP Nurse Practitioner Family; Referring Provider Internal Medicine Rheumatology; Visit Provider Internal Medicine Rheumatology
DX: D86.86 Sarcoid arthropathy (principal); Z79.899 Other long term (current) drug therapy; M65.311 Trigger thumb, right thumb
CPT/HCPCS: 36415; 80053; 85025

== ENCOUNTER → 2024-09-04 | Outpatient (CLI) | payer OTHER, SELFPAY ==
[2024-09-04 12:19] LABS: Absolute Lymphocyte Count 0.38 X10^3/uL (0.83-4.51); Absolute Neutrophil Count 2.4 X10^3/uL (2.0-7.7); Basophil# 0.04 X10^3/uL; Basophil% 1.1 % (0-1); Eosinophil# 0.21 X10^3/uL; Eosinophils% 5.7 % (0-5); Hematocrit 43.9 % (40-54); Hemoglobin 15.3 g/dL (13.0-16.5); Lymphocyte # 0.38 X10^3/ul (0.83-4.51); Lymphocyte % 10.2 % (19-41); Mean Corp Hgb Conc 34.9 g/dL (32-36); Mean Corpuscular Hgb 32.3 pg (27.0-32.0); Mean Corpuscular Volume 92.8 fL (80-94); Mean Platelet Vol. 10.8 fl (6.2-12.0); Monocyte# 0.59 X10^3/uL; Monocyte% 15.9 % (0-10); NRBC Flagged by Analyzer 0 % (0-5); Neutrophil # 2.42 X10^3/uL (2.7-7.7); Neutrophil % 65.2 % (47-70); POSITIVE DIFFERENTIAL YES; Platelet Count 178 K/mm3 (150-450); RBC Distribution Width SD 44.4 fl (35.1-43.9); Red Blood Count 4.73 M/mm3 (4.6-6.2); White Blood Count 3.7 K/mm3 (4.4-11.0)
[2024-09-04 16:22] LABS: AST(SGOT) 13 U/L (15-37); Alanine Aminotransfer ALT/SGPT 29 U/L (16-61); Albumin, Serum 3.5 g/dL (3.2-5.0); Alkaline Phosphatase 121 U/L (45-117); Anion Gap 4 (5-15); BUN 9 mg/dL (7-18); BUN/Creat Ratio 11.2 RATIO (10-20); Chloride 106 mmol/L (98-107); Creatinine, Serum 0.81 mg/dL (0.70-1.30); EST Glomerular Filtration Rate 105 mL/min (>60); Est Glom Filt Rate - Afr Amer 127 mL/min (>60); Globulin 3.5 g/dL (2.2-4.2); Glucose 142 mg/dL (74-106); Potassium 3.8 mmol/L (3.5-5.1); Sodium Level 137 mmol/L (136-145)
== END | disposition home or self-care (01) ==
LOC: MTLAB 10:17
PROVIDERS: PCP Nurse Practitioner Family; Referring Provider Internal Medicine Rheumatology; Visit Provider Internal Medicine Rheumatology
DX: D86.86 Sarcoid arthropathy (principal); Z79.899 Other long term (current) drug therapy
CPT/HCPCS: 36415; 80053; 85025

== ENCOUNTER → 2024-09-18 | Outpatient (CLI) | payer OTHER, SELFPAY | END | disposition home or self-care (01) | LOC: PSN 08:09 | PROVIDERS: PCP Nurse Practitioner Family; Referring Provider Nurse Practitioner Acute Care; Visit Provider Nurse Practitioner Acute Care | DX: Z79.899 Other long term (current) drug therapy (principal) | CPT/HCPCS: 94060; 94726; 94729 ==

== ENCOUNTER → 2024-12-04 | Outpatient (CLI) | payer OTHER, SELFPAY ==
[2024-12-04 12:45] LABS: Absolute Lymphocyte Count 0.66 X10^3/uL (0.83-4.51); Absolute Neutrophil Count 3.2 X10^3/uL (2.0-7.7); Basophil# 0.05 X10^3/uL; Eosinophil# 0.29 X10^3/uL; Eosinophils% 5.7 % (0-5); Hematocrit 45.1 % (40-54); Hemoglobin 15.4 g/dL (13.0-16.5); Lymphocyte # 0.66 X10^3/ul (0.83-4.51); Mean Corp Hgb Conc 34.1 g/dL (32-36); Mean Corpuscular Hgb 32.3 pg (27.0-32.0); Mean Corpuscular Volume 94.5 fL (80-94); Mean Platelet Vol. 10.8 fl (6.2-12.0); Monocyte# 0.86 X10^3/uL; NRBC Flagged by Analyzer 0 % (0-5); Neutrophil # 3.15 X10^3/uL (2.7-7.7); Neutrophil % 62.3 % (47-70); Platelet Count 181 K/mm3 (150-450); RBC Distribution Width CV 13.2 % (11.6-14.6); RBC Distribution Width SD 45.3 fl (35.1-43.9); Red Blood Count 4.77 M/mm3 (4.6-6.2); White Blood Count 5.1 K/mm3 (4.4-11.0)
[2024-12-04 13:06] LABS: ALB/GLOB Ratio 1.6 RATIO (0.9-2.4); AST(SGOT) 17 U/L (<=37); Alanine Aminotransfer ALT/SGPT 18 U/L (<=46); Albumin, Serum 4.3 g/dL (3.5-5.0); Alkaline Phosphatase 83 U/L (40-129); Anion Gap 10 (5-15); BUN 20 mg/dL (4-19); BUN/Creat Ratio 19.3 RATIO (10-20); Calcium,Total 9.5 mg/dL (7.6-11.0); Chloride 102 mmol/L (98-108); Creatinine, Serum 1.01 mg/dL (0.70-1.20); EST Glomerular Filtration Rate 87 (>60); Globulin 2.7 g/dL (2.2-4.2); Glucose 143 mg/dL (70-99); Potassium 4.5 mmol/L (3.3-5.1); Sodium Level 138 mmol/L (133-145)
== END | disposition home or self-care (01) ==
PROVIDERS: PCP Nurse Practitioner Family; Referring Provider Internal Medicine Rheumatology; Visit Provider Internal Medicine Rheumatology
DX: D86.86 Sarcoid arthropathy (principal); M65.311 Trigger thumb, right thumb; Z79.899 Other long term (current) drug therapy
CPT/HCPCS: 36415; 80053; 85025

== ENCOUNTER → 2025-02-21 | Outpatient (CLI) | payer OTHER, SELFPAY ==
[2025-02-21 12:19] LABS: Hematocrit 44.7 % (40-54); Hemoglobin 15.2 g/dL (13.0-16.5); Immature Granulocytes Count 0.050 X10^3/uL (0.0-0.0); Mean Corp Hgb Conc 34.0 g/dL (32-36); Mean Corpuscular Volume 93.9 fL (80-94); Mean Platelet Vol. 10.5 fl (6.2-12.0); NRBC Flagged by Analyzer 0 % (0-5); POSITIVE DIFFERENTIAL YES; Platelet Count 172 K/mm3 (150-450); RBC Distribution Width CV 13.3 % (11.6-14.6); RBC Distribution Width SD 46.0 fl (35.1-43.9); Red Blood Count 4.76 M/mm3 (4.6-6.2); White Blood Count 4.6 K/mm3 (4.4-11.0)
[2025-02-21 12:47] LABS: AST(SGOT) 15 U/L (<=37); Alanine Aminotransfer ALT/SGPT 18 U/L (<=46); Albumin, Serum 4.1 g/dL (3.5-5.0); Alkaline Phosphatase 94 U/L (40-129); Anion Gap 11 (5-15); BUN 12 mg/dL (4-19); BUN/Creat Ratio 14.6 RATIO (10-20); Calcium,Total 9.1 mg/dL (7.6-11.0); Carbon Dioxide 25.1 mmol/L (21.0-32.0); Chloride 103 mmol/L (98-108); Globulin 2.5 g/dL (2.2-4.2); Glucose 141 mg/dL (70-99); Potassium 3.9 mmol/L (3.3-5.1)
== END | disposition home or self-care (01) ==
PROVIDERS: PCP Nurse Practitioner Family; Referring Provider Internal Medicine Rheumatology; Visit Provider Internal Medicine Rheumatology
DX: D86.86 Sarcoid arthropathy (principal); Z79.899 Other long term (current) drug therapy; M65.311 Trigger thumb, right thumb
CPT/HCPCS: 36415; 80053; 85025

== ENCOUNTER → 2025-05-11 | Outpatient (CLI) | payer OTHER, SELFPAY ==
[2025-05-11 12:50] LABS: Hematocrit 46.2 % (40-54); Hemoglobin 16.0 g/dL (13.0-16.5); Immature Granulocytes Count 0.040 X10^3/uL (0.0-0.0); Mean Corp Hgb Conc 34.6 g/dL (32-36); Mean Corpuscular Volume 93.5 fL (80-94); Mean Platelet Vol. 11.5 fl (6.2-12.0); NRBC Flagged by Analyzer 0 % (0-5); POSITIVE DIFFERENTIAL YES; Platelet Count 177 K/mm3 (150-450); RBC Distribution Width CV 13.1 % (11.6-14.6); RBC Distribution Width SD 44.5 fl (35.1-43.9); Red Blood Count 4.94 M/mm3 (4.6-6.2); White Blood Count 3.7 K/mm3 (4.4-11.0)
[2025-05-11 12:51] LABS: Differential Indicated SCAN CRITERIA MET
[2025-05-11 13:03] LABS: AST(SGOT) 19 U/L (<=37); Alanine Aminotransfer ALT/SGPT 22 U/L (<=46); Albumin, Serum 4.3 g/dL (3.5-5.0); Alkaline Phosphatase 92 U/L (40-129); Anion Gap 12 (5-15); BUN 11 mg/dL (4-19); BUN/Creat Ratio 11.8 RATIO (10-20); Calcium,Total 9.5 mg/dL (7.6-11.0); Carbon Dioxide 23.8 mmol/L (21.0-32.0); Chloride 104 mmol/L (98-108); Globulin 2.9 g/dL (2.2-4.2); Glucose 128 mg/dL (70-99); Potassium 3.8 mmol/L (3.3-5.1)
== END | disposition home or self-care (01) ==
LOC: MTLAB 09:35
PROVIDERS: PCP Nurse Practitioner Family; Referring Provider Internal Medicine Rheumatology; Visit Provider Internal Medicine Rheumatology
DX: D86.86 Sarcoid arthropathy (principal); Z79.899 Other long term (current) drug therapy; M65.311 Trigger thumb, right thumb
CPT/HCPCS: 36415; 80053; 85025

== ENCOUNTER 2025-05-21 10:00 | Outpatient (RCR) | payer OTHER, SELFPAY ==
--- NOTE | 2025-04-30 08:12 | HP.PTEVAL_ITS ---
Patient's Visit Information Visit Information Visit Information: YOLY SLAUGHTER is a 59 year old M referred to Physical Therapy by Liberty Junior, CAR[facility] with a diagnosis of cervical radiculopathy. Date of Evaluation: 04/30/25 Physical Therapist: Franco Junior, DPT, OCS, CSCS Visit Plan Frequency: 2-3x /Week Duration: 4-6 Weeks Plan: 2-3x/week for 2-6 weeks for: IE HEP cervical retraction 15x every 2 hrs, posture, activity modification Treat with:. PA lower cervical ext mobs and progression of forces on ret to ext. (may need to go L lateral with SB) Monitor deviation in extension, L SB adn ext ROM for progression. STM to L UT, manual traction, crvical and postural strength and focus. TENS as needed. Subjective Subjective: DDD in neck. L neck pain and L arm tingling and numbness. Did x ray and has DDD, No MRI neck. It has been bothering him for 3 weeks, crick in his neck after sleeping and never went away. Getting in and out of bed and moving wrong. It can linger for a minute or longer. Worse in the evening. Worse moving. 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 Sleep is not worse but [facility] for 9 yrs and that keeps him up. Hobbbies: not much. TV often. TV usually comfortable Basic ADLs are all I. Pain Neck pain and L arm: Pain Intensity (Out of 10): 3 Pain Intensity Range: 1 and 8 Objective Objective: baseline: OK protrusion: slight worse adn R deviation, No change. retraction repeated: PDM, ERP, increased ROM and less deviation R repeated ret/extension, ERP, reflexes 1/3 bi and tri sensation WNL to gross light touch B UEE strngth 4/5 B UE without myotomal problems. cervical aROM 40 ext pain and R deviation, retraction pain, rotations 60 B, SB L pain limited, R no pain UE AROM and scap aROM WFL B. + c/s compression test L. - ext rotation lag and drop arm test. Balance/Special Test Scores Quick DASH Score: 29.5450 Goals Goal 1:: cervical aROM 55 ext without dev, symmetrical L SB without pain Goal Time Frame: 4-6 Weeks Goal 2:: Paraesthesia in L arm abolished and neck pain 90% better at 1/10 at worst. Goal Time Frame: 4-6 Weeks Goal 3:: Work without increased pain Goal Time Frame: 4-6 Weeks Goal 4:: quickdash score 15 or less Goal Time Frame: 4-6 Weeks Rehabilitation Potential Physical Therapy Diagnosis: postural abnormality, pain and limited ROM limiting comfortable funciton Rehabilitation Potential: Good Anticipated Interventions Patient/Client Instruction: Educate patient on: Condition and Plan of Care For the Purpose of:: To decrease pain, To increase ROM, To increase tolerance to activity/condition/position and To improve performance and independence with ADL's Therapeutic Exercise to Include: Strength training, Postural training, Flexibilty training, Relaxation training, Passive ROM, Active ROM and Desiree Exercises For the Purpose of:: To decrease pain, To increase ROM, To improve nutrient delivery to tissue, To increase tolerance to activity/condition/position and To improve ability of physical actions for home/community/work/leisure Manual Therapy Techniques to Include: Mobilization, Passive ROM and Soft tissue mobilization For the Purpose of:: To increase ROM and To improve nutrient delivery to tissue TENS: Yes For the Purpose of:: To decrease pain Text: Thank you for the opportunity to evaluate your patient. For Medicare and Medicare HMO plans, please review the plan of care and approve it. It will need to be FAXED BACK to us at [phone] for Medicare purposes. For Medicare only, by signing this I certify the plan of care. Please let me know if there are questions or concerns regarding this plan of care. Physician Signature: Date:
--- NOTE | 2025-07-09 15:41 | HP.PT.NRP ---
Patient Information Patient Information: YOLY SLAUGHTER was seen in my office for initial evaluation on 04/30/25. The following Plan of Care was established for this patient: POC Established Initial Frequency: 2-3x /Week Initial Duration: 4-6 Weeks Anticipated Interventions Patient/Client Instruction: Educate patient on: Condition and Plan of Care For the Purpose of:: To decrease pain, To increase ROM, To increase tolerance to activity/condition/position and To improve performance and independence with ADL's Therapeutic Exercise to Include: Strength training, Postural training, Flexibilty training, Relaxation training, Passive ROM, Active ROM and Desiree Exercises For the Purpose of:: To decrease pain, To increase ROM, To improve nutrient delivery to tissue, To increase tolerance to activity/condition/position and To improve ability of physical actions for home/community/work/leisure Manual Therapy Techniques to Include: Mobilization, Passive ROM and Soft tissue mobilization For the Purpose of:: To increase ROM and To improve nutrient delivery to tissue TENS: Yes For the Purpose of:: To decrease pain Last Seen Last Seen: This patient was last seen in our office 05/21/25. Pertinent comments regarding their Physical therapy will appear below: Pt seen 4 visits of POC and was 85% better. He cancelled his next visits due to illness and did not schedule or attend any further. AT this point, it has been over a month adn i will discontinue from my care. At this point I will be discontinuing this patient from physical therapy. I would be happy to see this patient again in the future if found appropriate by the physician. Thank you! Franco Junior, DPT, OCS, CSCS Balance/Gait/Functional tests Balance/Special Test Scores Quick DASH Score: 29.5445
== END 2025-05-21 19:00 | disposition home or self-care (01) ==
LOC: PT 10:00
PROVIDERS: PCP Nurse Practitioner Family; Referring Provider Nurse Practitioner Family; Visit Provider Nurse Practitioner Family
DX: M54.12 Radiculopathy, cervical region (principal)
CPT/HCPCS: 97110; 97140; 97161; 97530

== ENCOUNTER → 2025-07-23 | Outpatient (CLI) | payer OTHER, SELFPAY ==
[2025-07-23 12:23] LABS: Hematocrit 47.7 % (40-54); Hemoglobin 15.8 g/dL (13.0-16.5); Immature Granulocytes Count 0.110 X10^3/uL (0.0-0.0); Mean Corp Hgb Conc 33.1 g/dL (32-36); Mean Corpuscular Volume 95.2 fL (80-94); Mean Platelet Vol. 10.2 fl (6.2-12.0); NRBC Flagged by Analyzer 0 % (0-5); POSITIVE DIFFERENTIAL YES; Platelet Count 167 K/mm3 (150-450); RBC Distribution Width CV 13.4 % (11.6-14.6); RBC Distribution Width SD 46.4 fl (35.1-43.9); Red Blood Count 5.01 M/mm3 (4.6-6.2); White Blood Count 4.7 K/mm3 (4.4-11.0)
[2025-07-23 13:14] LABS: AST(SGOT) 17 U/L (<=37); Alanine Aminotransfer ALT/SGPT 19 U/L (<=46); Albumin, Serum 4.4 g/dL (3.5-5.0); Alkaline Phosphatase 88 U/L (40-129); Anion Gap 9 (5-15); BUN 14 mg/dL (4-19); BUN/Creat Ratio 14.6 RATIO (10-20); Calcium,Total 9.8 mg/dL (7.6-11.0); Carbon Dioxide 29.1 mmol/L (21.0-32.0); Chloride 100 mmol/L (98-108); Globulin 3.0 g/dL (2.2-4.2); Glucose 152 mg/dL (70-99); Potassium 4.2 mmol/L (3.3-5.1)
== END | disposition home or self-care (01) ==
LOC: MTLAB 10:33
PROVIDERS: PCP Nurse Practitioner Family; Referring Provider Internal Medicine Rheumatology; Visit Provider Internal Medicine Rheumatology
DX: D86.86 Sarcoid arthropathy (principal); Z79.899 Other long term (current) drug therapy
CPT/HCPCS: 36415; 80053; 85025

== ENCOUNTER → 2025-08-13 | Outpatient (CLI) | payer OTHER, SELFPAY ==
[2025-08-13 17:00] LABS: Color, Urine Straw (Yellow); Glucose, Dipstick Normal (Normal); Ketone-Dipstick Negative (Negative); Leukocyte Esterase-Dipstick Negative /ul (Negative); Nitrite-Dipstick Negative (Negative); Occult Blood-Urine 25 /ul (Negative); Protein-Dipstick 30 mg/dl (Negative); Specific Gravity, Urine 1.025 (1.002-1.030); Urine Bilirubin Dipstick Negative (Negative)
[2025-08-13 17:23] LABS: Creatinine, Urine (random) 89.20 mg/dL (39.00-259.00); Microalbumin,Random Urine 37.0 mg/L (<20 mg/L)
[2025-08-13 17:40] LABS: AST(SGOT) 19 U/L (<=37); Alanine Aminotransfer ALT/SGPT 26 U/L (<=46); Albumin, Serum 4.5 g/dL (3.5-5.0); Alkaline Phosphatase 101 U/L (40-129); Bilirubin, Direct 0.32 mg/dL (0.00-0.30); Cholesterol 206 mg/dL (<=200); Globulin 3.0 g/dL (2.2-4.2); Low Density Lipoprotein Calc. 121 mg/dL; Magnesium 2.0 mg/dL (1.5-2.2); Triglycerides 241 mg/dL; Very Low Density Lipoprotein 48 mg/dL (5-40); Vitamin B12 595 pg/mL (180-914); Vitamin D,25 Hydroxy 28.7 ng/mL (30-100); cholesterol:hdl ratio screen 4.78
== END | disposition home or self-care (01) ==
LOC: VSLAB 10:50
PROVIDERS: PCP Nurse Practitioner Family; Referring Provider Nurse Practitioner Family; Visit Provider Nurse Practitioner Family
DX: E11.9 Type 2 diabetes mellitus without complications (principal); E78.5 Hyperlipidemia, unspecified; I10 Essential (primary) hypertension; E55.9 Vitamin D deficiency, unspecified; D64.9 Anemia, unspecified
CPT/HCPCS: 36415; 80061; 80076; 81002; 82043; 82306; 82570; 82607; 83735; 84443